=== PATIENT | female | born 1945 | race Caucasian/White ===

== ENCOUNTER 2017-11-20 19:40 | Inpatient (IN) | payer MEDICARE ==
[2017-11-20 19:59] LABS: #Lymphocytes 0.8 thou/uL (1.20-3.40); #Monocytes 0.7 thou/uL (0.11-0.59); #Neutrophils 10.1 thou/uL (1.40-6.50); %Basophils 0.3 % (0.0-1.0); %Eosinophils 0.4 % (0.0-10.0); %Neutrophils 86.3 % (42.0-75.0); Mean Corpuscular Hemoglobin 27.5 pg (27.0-31.0); Mean Corpuscular Volume 85.9 fl (81.0-99.0); Mean Platelet Volume 7.7 fL (7.4-10.4); Platelet Count 217 thou/uL (130-400); RBC Distribution Width 14.5 % (11.5-14.5); Red Blood Cell (RBC) Count 3.63 mill/uL (4.20-5.40); White Blood Cell (WBC) Count 11.7 thou/uL (4.8-10.8)
[2017-11-20 20:07] LABS: INR-International Normal Ratio 1.1; PTT 28.6 SEC (22.9-36.1); Prothrombin Time 14.4 SEC (12.0-14.7)
[2017-11-20 20:13] LABS: ALT (SGPT) 27 U/L (8-55); AST (SGOT) 53 U/L (5-34); Albumin 3.9 g/dL (3.4-4.8); Alkaline Phosphatase 52 U/L (40-150); Anion Gap 14 mmol/L (10-20); BUN (Urea Nitrogen) 52 mg/dL (9.8-20.1); Bilirubin, Total 0.5 mg/dL (0.2-1.2); Calc. Creatinine Clearance 0 mL/min (70-130); Calcium 9.6 mg/dL (7.8-10.44); Carbon Dioxide 21 mmol/L (23-31); Chloride 104 mmol/L (98-107); Estimated GFR-MDRD 17; Globulin 2.8 g/dL (2.4-3.5); Glucose 213 mg/dL (83-110); Protein, Total 6.7 g/dL (6.0-8.3); Sodium 134 mmol/L (136-145)
[2017-11-20] MEDS ORDERED: Acetaminophen 500 MG TAB ONE (20:16)
[2017-11-20 20:17] LABS: CKMB 2.9 ng/mL (0-6.6); Troponin I 0.023 ng/mL (< 0.028)
[2017-11-20 20:26] LABS: Bilirubin Negative (Negative); Blood, Urine Small (Negative); Clarity CLOUDY (Clear); Glucose, Urine (Dipstick) Negative (Negative); Leukocyte Large (Negative); Nitrite Negative (Negative); Protein, Urine (Dipstick) 100 mg/dL (Neg-Trace); Specific Gravity, Urine 1.012 (1.002-1.036); Urobilinogen 0.2 mg/dL (0.2-1.0); pH, Urine 7.5 (5.0-9.0)
[2017-11-20 20:27] LABS: Bacteria/HPF 1+ HPF (None Seen); Hyaline Casts/LPF 4-6 HYALINE CAST LPF (0-3 Hyaline); Pathc Cast-AUWi Flag 0.43 (0-2.49); Squamous Epithelial None Seen HPF (0-3)
--- NOTE | 2017-11-20 21:02 | CT ---
NONCONTRAST CT HEAD: 11/20/17 HISTORY: Altered mental status starting at noon which has since resolved. This evening, patient developed slur red speech. COMPARISON: 01/14/17 FINDINGS: There are scattered low density areas again seen within the periventricular white matter which are no nspecific but likely reflective of chronic small vessel ischemic changes. There are small low density foci again seen within the right lentiform nucleus suggesting remote lacunar infarctions. Similar fi nding is seen in the inferior aspect of the left basal ganglia. There is a small low density focus se en within the central portion of the amanda which was not present on the prior and likely represents a lacunar infarction, although the exact age is difficult to determine but is again an interval change from prior exam. There is no evidence of an acute cortical infarction, hemorrhage, mass effect or midline shift. There is mild cerebral volume loss. The ventricular system is normal in size, shape, and position. There is mucosal thickening in bilateral ethmoidal air cells and right maxillary antrum. Mastoid air cells are clear. No other interval change. IMPRESSION: 1. Lacunar infarction in the amanda, the exact age is unable to be determined based on this exam, but this does represent an interval change compared to the prior study in 2017. 2. Remote lacunar infarctions bilateral basal ganglia with mild chronic small vessel ischemic ch anges. 3. Mild cerebral volume loss. 4. Sinus disease. 5. Above findings discussed with Dr. Torres in the Emergency Department on 11/20/17 at 1959 hours . POS: [facility]
--- NOTE | 2017-11-20 21:13 | RAD ---
PORTABLE AP CHEST X-RAY: 11/20/17 HISTORY: Altered mental status which started today. COMPARISON: 01/14/17. FINDINGS: The cardiac silhouette is magnified by projection but is at the upper limits of normal in size. Pulmo nary vasculature is within normal limits. The lungs are clear. Multiple lag screws again overlie the right humeral head. There has been no significant interval change from prior exam. IMPRESSION: No acute cardiopulmonary process. POS: [facility]
[2017-11-20] MEDS ORDERED: Acetaminophen 325 MG TAB PO PRN (22:36)
[2017-11-20 22:47] VITALS: BMI 30.1
[2017-11-21] MEDS ORDERED: Ondansetron ODT 4 MG TAB PO PRN (03:37)
[2017-11-21] MEDS ORDERED: Nitroglycerin 0.4 MG TAB (25 Tab Bottle) PO PRN (03:37)
[2017-11-21] MEDS ORDERED: Ondansetron HCl/PF 4 MG/2 ML Vial IVP PRN (03:37)
[2017-11-21] MEDS ORDERED: Calcium Carbonate 500 MG ChewTAB PO PRN (03:37)
[2017-11-21] MEDS ORDERED: Senokot 8.6 MG TAB PO PRN (03:37)
[2017-11-21] MEDS ORDERED: Dextrose 5% in Water 1,000 ML IV PRN (03:43)
[2017-11-21] MEDS ORDERED: Dextrose 50% Abboject 50 ML SYRINGE SLOW IVP PRN (03:43)
[2017-11-21] MEDS ORDERED: Insulin Regular 300 UNITS/3 ML VIAL SC PRN (03:43)
--- NOTE | 2017-11-21 04:41 | HP ---
DATE OF ADMISSION: 11/20/2017 PRIMARY CARE PHYSICIAN: Nanette Gutierrez M.D. CHIEF COMPLAINT: Altered mentation. HISTORY OF PRESENT ILLNESS: The patient is a 72-year-old female with diabetes mellitus type 2, hyper tension, and chronic kidney disease, presented to the emergency room with altered mentation. History obtained from the patient. No family at the bedside. Per ER report, the patient had confusion this morning that progressively got worse. She was then abl e to answer basic questions. She just mumbled her words. The patient denies any recent change in he r medications. No weakness, numbness of her extremities reported. She denies any chest pain, shortn ess of breath, palpitations. Her symptoms have improved per patient report. PAST MEDICAL HISTORY: 1. Hypertension. 2. Chronic kidney disease stage 4. 3. History of hypertensive emergency, last year requiring hospital admission. 4. Chronic diastolic heart failure. 5. Hypothyroidism. 6. Gastroesophageal reflux disease. 7. 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 8. Vitamin B12 deficiency. PAST SURGICAL HISTORY: 1. Right shoulder surgery. 2. Colonoscopy with laser ablations of the AVMs. 3. Appendectomy. 4. Thyroidectomy. 5. Hysterectomy. 6. Cholecystectomy. ALLERGIES: The patient is allergic to PENICILLIN and FLEXERIL. CURRENT HOME MEDICATIONS: Per [employer], Lasix 20 mg daily, fish oil daily, ferrous sulfate daily, vi tamin B12 intramuscularly every 28 days, carvedilol 25 mg b.i.d., gabapentin 1200 mg daily, levothyro xine 100 mcg daily, Procardia-XL 60 mg daily, omeprazole 20 mg daily, Lantus insulin 35 units in the morning and 10 units at bedtime per patient report. SOCIAL HISTORY: The patient currently lives at home. No smoking, alcohol or drug use. Her makes her decisions. She is FULL CODE. FAMILY HISTORY: Negative for heart disease, diabetes or malignancy. REVIEW OF SYSTEMS: The following complete review of systems was negative, unless otherwise mentioned in the HPI or below: Constitutional: Weight loss or gain, ability to conduct usual activities. Sk in: Rash, itching. Eyes: Double vision, pain. ENT/Mouth: Nose bleeding, neck stiffness, pain, te nderness. Cardiovascular: Palpitations, dyspnea on exertion, orthopnea. Respiratory: Shortness of breath, wheezing, cough, hemoptysis, fever or night sweats. Gastrointestinal: Poor appetite, abdom inal pain, heartburn, nausea, vomiting, constipation, or diarrhea. Genitourinary: Urgency, frequenc y, dysuria, nocturia. Musculoskeletal: Pain, swelling. Neurologic/Psychiatric: Anxiety, depressio n. Allergy/Immunologic: Skin rash, bleeding tendency. PHYSICAL EXAMINATION: VITAL SIGNS: On ER arrival, temperature 102.2, respirations 22, pulse rate of 89, blood pressure 168 /73 with O2 saturation 93% on room air. GENERAL: A 72-year-old female in no apparent distress. HEENT: Head atraumatic, normocephalic. Sclerae are anicteric. Moist mucous membrane, no oral lesio n. NECK: Supple, no JVD appreciated. No carotid bruit. LUNGS: Clear to auscultation bilaterally, no wheezing, rales or rhonchi. HEART: S1, S2 present. Regular rate and rhythm, 2/6 systolic murmur over the mitral area. No heave s or pulsation. ABDOMEN: Soft, nontender, bowel sounds present. No significant costovertebral angle tenderness appr eciated. EXTREMITIES: 1+ edema in bilateral lower extremities. SKIN: Warm and dry. LYMPH NODES: No palpable lymph nodes in the neck. PERIPHERAL VASCULAR: Radial pulses palpable bilaterally. MUSCULOSKELETAL: No joint swelling or tenderness. SKIN: Warm and dry. NEUROLOGIC: Grossly nonfocal, moves all four extremities. Power was 5/5 in all extremities. PSYCHIATRY: Alert, awake, oriented x3. LABORATORY FINDINGS: CBC showed WBC 11.7 with hemoglobin 10.0, hematocrit 31.1, platelet of 217. PT , INR, PTT normal range. Chemistries showed sodium of 134, potassium 5, chloride 104, bicarbonate 21 , BUN 52, creatinine 2.82. Her baseline creatinine is close to 2.0. Troponins were normal. Urinaly sis showed greater than 50 wbc's with 4+ bacteria, large amount of leukocyte esterase with 4-6 hyalin e casts and 1+ bacteria. Chest x-ray by my review was negative for infiltrate. CT scan of the brain was negative for acute fi ndings. IMPRESSION: 1. Toxic metabolic encephalopathy, suspected secondary to urinary tract infection. 2. Diabetes mellitus type 2. 3. Hypertension. 4. Hyperlipidemia. 5. Hypothyroidism. 6. Acute kidney injury on chronic kidney disease stage 4. 7. Peripheral neuropathy. 8. Chronic diastolic heart failure. 9. History of gastrointestinal bleeding secondary to arteriovenous malformations in the colon. PLAN: The patient will be monitored on the telemetry unit. Empiric antibiotics will be continued. Blood and urine cultures have been sent. She may benefit from a low dose 81 mg aspirin. We will dis cuss with the family prior to initiating due to history of GI bleeding in the past. Insulin sliding scale. We will resume home medications. Continue levothyroxine. We will also resume gabapentin sin ce her mentation has improved. Due to diastolic heart failure, will be careful with fluid overloadin g. She would benefit from gentle IV hydration due to acute kidney injury on chronic kidney disease s tage 4. Plan of care was discussed with the patient, she stated understanding. The patient will require 2-3 days for stabilization.
[2017-11-21] MEDS: Sodium Chloride 0.9% 1,000 ML IV SCH (04:43)
[2017-11-21] MEDS: hydrALAZINE 20 MG/ML VIAL SLOW IVP PRN ×2 (04:52→10:54)
[2017-11-21] MEDS: Levothyroxine Sodium 100 MCG TAB PO SCH (04:52)
[2017-11-21] MEDS: Acetaminophen 325 MG TAB PO PRN ×3 (06:08→20:25)
[2017-11-21 06:14] LABS: Anion Gap 12 mmol/L (10-20); BUN (Urea Nitrogen) 52 mg/dL (9.8-20.1); Calc. Creatinine Clearance 25 mL/min (70-130); Carbon Dioxide 22 mmol/L (23-31); Chloride 107 mmol/L (98-107); Estimated GFR-MDRD 18; Glucose 272 mg/dL (83-110); Potassium 4.2 mmol/L (3.5-5.1); Sodium 137 mmol/L (136-145)
[2017-11-21 06:19] LABS: Troponin I 0.021 ng/mL (< 0.028)
[2017-11-21] MEDS ORDERED: cefTRIAXone\\ROCEPHIN 1 GM, Syringe 0.4 ML in Sterile Water 9.6 ML SLOW IVP SCH (08:00)
[2017-11-21] MEDS ORDERED: Famotidine 20 MG TAB PO SCH (09:00)
[2017-11-21] MEDS: Insulin Detemir 100 UNITS/ML 20 UNITS in Pre-Filled Syringe 1 EACH SC SCH (09:21)
[2017-11-21] MEDS: NIFEdipine XL 60 MG TAB PO SCH (09:24)
[2017-11-21] MEDS: Docusate 100 MG CAP PO SCH ×2 (09:24→20:16)
[2017-11-21] MEDS: Carvedilol 25 MG TAB PO SCH ×2 (09:24→20:16)
[2017-11-21] MEDS: Gabapentin 300 MG CAP PO SCH ×2 (09:24→20:16)
[2017-11-21] MEDS: Heparin 5,000 UNITS/ML VIAL SC SCH ×2 (09:25→20:16)
[2017-11-21] MEDS: Insulin Regular 300 UNITS/3 ML VIAL SC PRN ×3 (09:28→16:33)
[2017-11-21] MEDS: cefTRIAXone\\ROCEPHIN 1 GM in Sterile Water 10 ML SLOW IVP SCH (09:43)
--- NOTE | 2017-11-21 15:00 | PDOC.PN ---
- Subjective Encounter Start Date: 11/21/17 Encounter Start Time: 07:40 Pt seen for followup re: acute encephalopathy. Feels better. Denies chest pain , shortness of breath, fevers or chills. - Objective Resuscitation Status: Resuscitation Status FULL:Full Resuscitation MAR Reviewed: Yes Vital Signs & Weight: Vital Signs (12 hours) Temp Pulse Resp BP BP Pulse Ox 11/21/17 12:00 97.4 F L 74 14 170/72 H 95 11/21/17 10:52 74 18 177/72 H 95 11/21/17 08:25 98.7 F 84 18 11/21/17 08:00 98.7 F 84 18 189/74 H 97 11/21/17 04:52 75 183/81 H 11/21/17 04:45 98.3 F 75 18 183/81 H 93 L Weight Weight 175 lb 11.2 oz I&O: 11/20/17 11/21/17 11/22/17 06:59 06:59 06:59 Output Total 600 0 Balance -600 0 Result Diagrams: 11/20/17 19:58 11/21/17 05:43 Additional Labs: Accuchecks 11/21/17 11/21/17 10:46 05:55 POC Glucose 330 H 269 H EKG Reviewed by me: Yes (Tele: NSR) Phys Exam - Physical Examination Obese HEENT: PERRLA, moist MMs, sclera anicteric, oral pharynx no lesions Neck: no nodes, no JVD, supple, full ROM Respiratory: no wheezing, no rales, no rhonchi, clear to auscultation bilateral Cardiovascular: RRR, no rub Gastrointestinal: soft, non-tender, no distention, positive bowel sounds Musculoskeletal: pulses present Neurological: moves all 4 limbs Psychiatric: normal affect, A&O x 3 Skin: no rash Dx/Plan (1) Acute encephalopathy Code(s): G93.40 - ENCEPHALOPATHY, UNSPECIFIED Status: Acute Comment: improving (2) UTI (urinary tract infection) Status: Acute Comment: continue ceftriaxone, await urine culture (3) AV malformation of GI tract Code(s): Q27.33 - ARTERIOVENOUS MALFORMATION OF DIGESTIVE SYSTEM VESSEL Status : Chronic Comment: Discussed with pt, will not start aspirin for old CVA. Advised her to follow up with her PCP. (4) GERD (gastroesophageal reflux disease) Code(s): K21.9 - GASTRO-ESOPHAGEAL REFLUX DISEASE WITHOUT ESOPHAGITIS Status: Chronic Comment: stable (5) Hyperlipidemia Code(s): E78.5 - HYPERLIPIDEMIA, UNSPECIFIED Status: Chronic (6) Hypothyroidism Code(s): E03.9 - HYPOTHYROIDISM, UNSPECIFIED Status: Chronic Comment: stable (7) Chronic kidney disease, stage 4 (severe) Code(s): N18.4 - CHRONIC KIDNEY DISEASE, STAGE 4 (SEVERE) Status: Chronic Comment: renal function improved overnight - Plan plan discussed w/ family, continue antibiotics, out of bed/ambulate * . Review of Systems - Review of Systems Constitutional: negative: fever, chills, sweats, weakness, malaise Respiratory: negative: Cough, Shortness of Breath, Hemoptysis, SOB with Excertion, Pleuritic Pain, Wheezing Cardiovascular: negative: chest pain, palpitations, orthopnea, paroxysmal nocturnal dyspnea, edema, light headedness Gastrointestinal: negative: Nausea, Vomiting, Abdominal Pain, Diarrhea, Constipation, Melena, Hematochezia Genitourinary: negative: Dysuria, Frequency, Incontinence, Hematuria, Retention - Medications/Allergies Allergies/Adverse Reactions: Allergies Allergy/AdvReac Type Severity Reaction Status Date / Time Penicillins Allergy Severe Verified 08/09/15 03:17 cyclobenzaprine HCl AdvReac Verified 05/09/16 15:44 [From Flexeril] Medications: Current Medications Acetaminophen (Tylenol) 650 mg PO Q4H PRN PRN Reason: Headache/Fever or Pain Last Admin: 11/21/17 09:43 Dose: 650 mg Albuterol/Ipratropium (Duoneb) 3 ml NEB [id number] PRN PRN Reason: SOB &/or Wheezing Calcium Carbonate (Tums) 1,000 mg PO Q4H PRN PRN Reason: Heartburn or Indigestion Carvedilol (Coreg) 25 mg PO BID [facility] Last Admin: 11/21/17 09:24 Dose: 25 mg Dextrose/Water (Dextrose 50%) 25 gm SLOW IVP PRN PRN PRN Reason: Hypoglycemia Docusate Sodium (Colace) 100 mg PO BID [facility] Last Admin: 11/21/17 09:24 Dose: 100 mg Gabapentin (Neurontin) 600 mg PO BID [facility] Last Admin: 11/21/17 09:24 Dose: 600 mg Glucagon (Glucagon) 1 mg IM PRN PRN PRN Reason: Hypoglycemia Heparin Sodium (Porcine) (Heparin) 5,000 units SC BID [facility] Last Admin: 11/21/17 09:25 Dose: 5,000 units Hydralazine HCl (Apresoline) 10 mg SLOW IVP Q4H PRN PRN Reason: SBP Greater Than 180 Last Admin: 11/21/17 10:54 Dose: 10 mg Sodium Chloride (Normal Saline 0.9%) 1,000 mls @ 50 mls/hr IV .Q20H [facility] Stop: 11/23/17 03:46 Last Admin: 11/21/17 04:43 Dose: 1,000 mls Ceftriaxone Sodium 1 gm/ (Sterile Water) 10 mls @ 120 mls/hr SLOW IVP DAILY [facility] Last Admin: 11/21/17 09:43 Dose: 10 mls Dextrose/Water (D5w) 1,000 mls @ 0 mls/hr IV .Q0M PRN; As Directed PRN Reason: Hypoglycemia Insulin Detemir 20 units/ (Miscellaneous Medication) 0.2 mls @ 0 mls/hr SC QAM [facility] Last Admin: 11/21/17 09:21 Dose: 0.2 mls Insulin Human Regular (Humulin R) 0 units SC .MILD SLIDING SCALE PRN PRN Reason: Mild Correctional Scale Last Admin: 11/21/17 10:54 Dose: 5 unit Insulin Human Regular (Humulin R) 0 units SC .BEDTIME SLIDING SC PRN PRN Reason: Bedtime Correctional Scale Levothyroxine Sodium (Synthroid) 100 mcg PO 0600 [facility] Last Admin: 11/21/17 04:52 Dose: 100 mcg Nifedipine (Procardia Xl) 60 mg PO DAILY [facility] Last Admin: 11/21/17 09:24 Dose: 60 mg Nitroglycerin (Nitrostat) 0.4 mg PO Q5MIN PRN PRN Reason: Chest Pain Ondansetron HCl (Zofran Odt) 4 mg PO Q6H PRN PRN Reason: Nausea/Vomiting Ondansetron HCl (Zofran) 4 mg IVP Q6H PRN PRN Reason: Nausea/Vomiting Pantoprazole Sodium (Protonix) 40 mg PO DAILY [facility] Last Admin: 11/21/17 09:23 Dose: 40 mg Senna (Senokot) 2 tab PO HSPRN PRN PRN Reason: Constipation Sodium Chloride (Flush - Normal Saline) 10 ml IVF Q12HR MIKE Last Admin: 11/21/17 09:26 Dose: 10 ml Sodium Chloride (Flush - Normal Saline) 10 ml IVF PRN PRN PRN Reason: Saline Flush
[2017-11-21] MEDS ORDERED: GABAPENTIN 1200 MG PO SCH (21:00)
[2017-11-22] MEDS: Sodium Chloride 0.9% 1,000 ML IV SCH (00:29)
[2017-11-22] MEDS: Levothyroxine Sodium 100 MCG TAB PO SCH (05:17)
[2017-11-22 05:33] LABS: #Eosinphils 0.1 thou/uL (0.0-0.7); #Monocytes 0.7 thou/uL (0.11-0.59); #Neutrophils 4.1 thou/uL (1.40-6.50); %Basophils 0.1 % (0.0-1.0); %Eosinophils 2.1 % (0.0-10.0); %Monocytes 12.3 % (0.0-10.0); %Neutrophils 69.4 % (42.0-75.0); Hemoglobin 8.7 g/dL (12.0-16.0); Mean Corpuscular HGB CONC 32.6 g/dL (32.0-36.0); Mean Corpuscular Hemoglobin 28.2 pg (27.0-31.0); Mean Corpuscular Volume 86.5 fl (81.0-99.0); Mean Platelet Volume 8.5 fL (7.4-10.4); Platelet Count 196 thou/uL (130-400); RBC Distribution Width 14.6 % (11.5-14.5); Red Blood Cell (RBC) Count 3.07 mill/uL (4.20-5.40); White Blood Cell (WBC) Count 5.9 thou/uL (4.8-10.8)
[2017-11-22 05:44] LABS: ALT (SGPT) 24 U/L (8-55); AST (SGOT) 33 U/L (5-34); Albumin 3.4 g/dL (3.4-4.8); Alkaline Phosphatase 47 U/L (40-150); Anion Gap 12 mmol/L (10-20); BUN (Urea Nitrogen) 53 mg/dL (9.8-20.1); Bilirubin, Total 0.2 mg/dL (0.2-1.2); Calc. Creatinine Clearance 23 mL/min (70-130); Calcium 9.2 mg/dL (7.8-10.44); Carbon Dioxide 21 mmol/L (23-31); Chloride 109 mmol/L (98-107); Estimated GFR-MDRD 17; Globulin 2.9 g/dL (2.4-3.5); Glucose 190 mg/dL (83-110); Potassium 3.9 mmol/L (3.5-5.1); Protein, Total 6.3 g/dL (6.0-8.3); Sodium 138 mmol/L (136-145)
[2017-11-22] MEDS: cefTRIAXone\\ROCEPHIN 1 GM in Sterile Water 10 ML SLOW IVP SCH (09:41)
[2017-11-22] MEDS: Insulin Detemir 100 UNITS/ML 20 UNITS in Pre-Filled Syringe 1 EACH SC SCH (09:42)
[2017-11-22] MEDS: Carvedilol 25 MG TAB PO SCH (09:42)
[2017-11-22] MEDS: NIFEdipine XL 60 MG TAB PO SCH (09:42)
[2017-11-22] MEDS: Gabapentin 300 MG CAP PO SCH (09:42)
[2017-11-22] MEDS: Docusate 100 MG CAP PO SCH (09:43)
[2017-11-22] MEDS: Heparin 5,000 UNITS/ML VIAL SC SCH (09:44)
[2017-11-22 12:17] VITALS: TEMP 98.9
[2017-11-22] MEDS: Insulin Regular 300 UNITS/3 ML VIAL SC PRN (12:18)
[2017-11-22] MEDS: hydrALAZINE 20 MG/ML VIAL SLOW IVP PRN (12:22)
[2017-11-22 12:52] VITALS: BP 176/76
--- NOTE | 2017-11-22 15:08 | CON ---
DATE OF CONSULTATION: 11/22/2017 SERVICE: Renal Medicine. HISTORY OF PRESENT ILLNESS: Ms. Canales is a 72-year-old white female with chronic renal failure from diabetic nephropathy, hypertension, type 2 diabetes mellitus and was admitted for mental status [facility] . She was found to have a UTI and that could explain the mental status change. Her mentation is m uch improved. However, her creatinine has been fluctuating up and down. I suspect there is some pre renal component. The patient is mentating better and she is eating better and drinking as well. No other complaints. REVIEW OF SYSTEMS: No shortness of breath. Positive for mentation changes. No nausea, no vomiting, no diarrhea, no constipation, no gross hematuria, ? of dysuria, ? of urinary frequency. No fever or chills. No abdominal pain. Appetite is excellent. HOME MEDICATIONS: Included Lasix 20 mg tab daily, ferrous sulfate 325 mg once a day, B12 at every 28 days intramuscularly, carvedilol 25 mg p.o. b.i.d., gabapentin 1200 mg daily, levothyroxine 100 mcg daily, Procardia-XL 60 mg tab once a day, omeprazole 20 mg once a day, Lantus 35 units in the morning and 10 units at night. PAST MEDICAL HISTORY: 1. Chronic renal failure from diabetic nephropathy. 2. Longstanding hypertension. 3. Type 2 diabetes mellitus. 4. Hypothyroidism. 5. GERD. 6. Status post GI bleed from AV malformation. 7. Chronic diastolic heart failure. PAST SURGICAL HISTORY: 1. Status post cholecystectomy. 2. Status post hysterectomy. 3. Status post thyroidectomy. 4. Status post colonoscopy with laser ablations of the AV malformation. 5. Status post appendectomy. 6. Status post right shoulder surgery. ALLERGIES: PENICILLIN, FLEXERIL. TRAUMA: None. IMMUNIZATIONS: Up to date. HOSPITALIZATIONS: Please see past medical history. SOCIAL HISTORY: The patient is , 2 children, lives in [place]. Sedentary lifestyle. Denies a ny smoking or alcohol intake, no IV drug abuse. FAMILY HISTORY: No family history of ESRD. PHYSICAL EXAMINATION: VITAL SIGNS: Blood pressure is noted at 171/71 - this is before blood pressure medications, heart ra te 86, respiratory rate 20, temperature 98.7, pulse ox 91%. GENERAL: Awake, alert, comfortable, not in distress. SKIN: Adequate turgor. HEENT: Slightly pale conjunctivae, anicteric sclerae. NECK: No neck mass, no carotid bruits, no JVD. CHEST: No deformities. LUNGS: Clear breath sounds, no wheezing, no crackles. HEART: Normal sinus rhythm. No murmur, no gallops, no rubs. ABDOMEN: Globular, soft, nontender, no masses. EXTREMITIES: No edema, no deformities. NEUROLOGIC: Awake, oriented to 3 spheres. Moving all extremities. No tremors, no asterixis. LABORATORY DATA: Of 11/22/2017, white count 5.9, hemoglobin 8.7. Of 11/22/2017, sodium 138, potassi um 3.9, chloride 109, carbon dioxide 21, BUN 53, creatinine 2.77, glucose 190, calcium 9.2, AST is 33 . Ammonia level 47. On 11/21/2017, creatinine 2.58. On 11/20/2017, creatinine 2.82. On 09/28/2017 , creatinine 2.1. ASSESSMENT AND PLAN: 1. Chronic renal failure - secondary to presumed diabetic nephropathy, fluctuating creatinine. This reflects some degree of hemodynamically mediated renal dysfunction. I think this will equilibrate o nce the patient is home. Her p.o. intake is much improved. In addition, we will continue to hold of f her diuretics. No NANCY inhibitors or ARB. There is no indication for any dialytic intervention. 2. Mental status change - most likely from metabolic encephalopathy from her urinary tract infection . Much improved. 3. The patient can be discharged home. Please note, she was given IV ceftriaxone. We will follow h er up at the [facility].
--- NOTE | 2017-11-22 18:33 | DIS ---
DATE OF ADMISSION: 11/20/2017 DATE OF DISCHARGE: 11/22/2017 PRIMARY CARE PHYSICIAN: Nanette Gutierrez MD DISCHARGE DIAGNOSES: 1. Acute encephalopathy. 2. Urinary tract infection. CONDITION OF THE PATIENT ON THE DAY OF DISCHARGE: Stable. I assessed Ms. Canales on the day of disch arge. She denies any chest pain or shortness of breath. PHYSICAL EXAMINATION: VITAL SIGNS: Stable. HEART: S1 and S2 are heard, regular. LUNGS: Clear to auscultation bilaterally. DISCHARGE MEDICATIONS: Ciprofloxacin 500 mg orally every 18 hours, 5 more doses; Biotin 10,000 mcg d aily; Coreg 25 mg 2 times a day; vitamin D3, 1000 units every evening; vitamin B12, 1000 mcg every 28 days intramuscularly; ferrous sulfate 325 mg 2 times a day; fish oil 1200 mg 2 times a day; Lasix 20 mg daily; Neurontin 1200 mg in the evening; Lantus insulin 50 units 2 times a day; levothyroxine 100 mcg daily; magnesium 250 mg at bedtime; multivitamins 1 capsule daily; Procardia XL 60 mg daily; ome prazole 20 mg daily. CONSULTATIONS DURING THIS HOSPITALIZATION: Nephrology, Dr. Ta. HOSPITAL COURSE: Ms. Canales is a pleasant 72-year-old lady who was admitted to [facility] on 11/20/2017 for acute encephalopathy. Please refer to the admitting physician's histo ry and physical note for further information. Her encephalopathy improved during this hospitalization. She was found to have urinary tract infecti on with Escherichia coli that is resistant to ampicillin and trimethoprim/sulfamethoxazole, but sensi tive to amikacin, cefepime, cefoxitin, ceftazidime, ceftriaxone, ciprofloxacin, gentamicin, levofloxa chase, meropenem, nitrofurantoin, Zosyn, and tobramycin. She was also seen by Nephrology Service for mild worsening of her creatinine. She is reportedly arou nd her baseline. She was initially treated with ceftriaxone, subsequently stepped down to ciprofloxacin at the time of discharge. Blood cultures are pending at the time of this dictation. She is advised to follow up [facility] for blood culture results. On the day of discharge, she has white count of 5900, h emoglobin 8.7, platelet count 196,000. Sodium 138, potassium 3.9, creatinine 2.77, blood urea nitrog en 53, and a normal liver profile. Many thanks for allowing me to participate in your patient's care. Please feel free to contact me wi th any questions or concerns. DISCHARGE DESTINATION: Home. TOTAL AMOUNT OF TIME SPENT COORDINATING THIS DISCHARGE: 33 minutes.
== END 2017-11-22 13:19 | disposition home or self-care (01) | DRG 689 ==
LOC: ERS 19:40 → 2NO 21:00
PROVIDERS: ADMIT Internal Medicine; ATTEND Internal Medicine
DX: N39.0 Urinary tract infection, site not specified (principal); G92 Toxic encephalopathy; N18.4 Chronic kidney disease, stage 4 (severe); N17.9 Acute kidney failure, unspecified; I13.0 Hypertensive heart and chronic kidney disease with heart failure and stage 1 through stage 4 chronic kidney disease, or unspecified chronic kidney disease; I50.32 Chronic diastolic (congestive) heart failure; E11.22 Type 2 diabetes mellitus with diabetic chronic kidney disease; E11.42 Type 2 diabetes mellitus with diabetic polyneuropathy; E03.9 Hypothyroidism, unspecified; E78.5 Hyperlipidemia, unspecified; K21.9 Gastro-esophageal reflux disease without esophagitis; Q27.33 Arteriovenous malformation of digestive system vessel; Z86.73 Personal history of transient ischemic attack (TIA), and cerebral infarction without residual deficits; Z87.442 Personal history of urinary calculi; Z85.828 Personal history of other malignant neoplasm of skin; B96.20 Unspecified Escherichia coli [E. coli] as the cause of diseases classified elsewhere; Z79.4 Long term (current) use of insulin
CPT/HCPCS: 36415; 36416; 70450; 71045; 80048; 80053; 81003; 81015; 82553; 83605; 84484; 85025; 85610; 85730; 87040; 87077; 87086; 87186; 93005; 94760; 96361; 96374; A4216; G8978-GP-CI; G8979-GP-CI; G8980-GP-CI; J0360; J0696; J1644; J1815

== ENCOUNTER 2017-11-23 23:06 | Inpatient (IN) | payer MEDICARE ==
[2017-11-23] MEDS ORDERED: Nitroglycerin 2% Ointment 1 INCH/1 GM Packet ONE (23:34)
[2017-11-23] MEDS ORDERED: Furosemide 40 MG/4 ML VIAL ONE (23:34)
[2017-11-23 23:35] LABS: #Eosinphils 0.1 thou/uL (0.0-0.7); #Lymphocytes 0.8 thou/uL (1.20-3.40); #Monocytes 0.9 thou/uL (0.11-0.59); #Neutrophils 6.9 thou/uL (1.40-6.50); %Basophils 0.5 % (0.0-1.0); %Eosinophils 0.8 % (0.0-10.0); %Lymphocytes 9.1 % (21.0-51.0); %Monocytes 10.2 % (0.0-10.0); %Neutrophils 79.4 % (42.0-75.0); Hemoglobin 8.4 g/dL (12.0-16.0); Mean Corpuscular HGB CONC 32.9 g/dL (32.0-36.0); Mean Corpuscular Hemoglobin 28.2 pg (27.0-31.0); Mean Corpuscular Volume 85.6 fl (81.0-99.0); Mean Platelet Volume 7.8 fL (7.4-10.4); Platelet Count 249 thou/uL (130-400); RBC Distribution Width 14.7 % (11.5-14.5); Red Blood Cell (RBC) Count 2.98 mill/uL (4.20-5.40); White Blood Cell (WBC) Count 8.7 thou/uL (4.8-10.8)
[2017-11-23] MEDS ORDERED: Albuterol Sulfate 2.5 mg/3 ml Neb ONE (23:42)
[2017-11-23 23:58] LABS: ALT (SGPT) 39 U/L (8-55); AST (SGOT) 54 U/L (5-34); Albumin 3.7 g/dL (3.4-4.8); Alkaline Phosphatase 66 U/L (40-150); Anion Gap 14 mmol/L (10-20); BUN (Urea Nitrogen) 51 mg/dL (9.8-20.1); Bilirubin, Total 0.5 mg/dL (0.2-1.2); CK (CPK) 251 U/L (29-168); Calc. Creatinine Clearance 0 mL/min (70-130); Calcium 9.9 mg/dL (7.8-10.44); Carbon Dioxide 22 mmol/L (23-31); Chloride 107 mmol/L (98-107); Estimated GFR-MDRD 17; Globulin 3.3 g/dL (2.4-3.5); Glucose 251 mg/dL (83-110); Lipase 30 U/L (8-78); Potassium 4.6 mmol/L (3.5-5.1); Sodium 138 mmol/L (136-145)
[2017-11-24 00:02] LABS: CKMB 2.8 ng/mL (0-6.6); Troponin I 0.024 ng/mL (< 0.028)
--- NOTE | 2017-11-24 00:03 | RAD ---
FRONTAL VIEW CHEST: CLINICAL HISTORY: Dyspnea. COMPARISON: Chest radiograph from 11/23/2017. FINDINGS: Abnormal alveolar opacification is seen at each perihilar region. Slight blunting of each costophren ic sulcus is present. The cardiac silhouette is prominent, as is the pulmonary vasculature. The justino st is otherwise similar. IMPRESSION: Abnormal patchy alveolar perihilar opacities may relate to edema or atypical pneumonia. There are findings that indicate congestive heart failure with mild pleural fluid. Recommend continued followup. POS: [facility]
[2017-11-24 00:13] LABS: Actual Bicarbonate (HCO3a) 20.7 mEq/L (22-26); Base Excess (BEa) -3.2 mEq/L (0 (+/-) 2.5); CO2 Tension 32.3 mmHg (35.0-45.0); Carboxyhemoglobin (COHb) 1.2 gm% (0.0-3.0); Hemoglobin (Hb) 8.1 g/dL (12.0-16.0); O2 Tension (PaO2) 56.7 mmHg (80.0-100.0); pH, Arterial 7.43 (7.35-7.45)
[2017-11-24 00:14] LABS: Analyzer IN Cardio ER; Calcium, Ionized 1.3 mmol/L (1.12-1.30); Potassium - ABG Lab 4.6 mmol/L (3.70-5.30); Puncture Site LRA
[2017-11-24 00:15] LABS: ALV-art Gradient 615.925 (0-20)
[2017-11-24] MEDS ORDERED: Dextrose 50% Abboject 50 ML SYRINGE SLOW IVP PRN (00:24)
[2017-11-24] MEDS ORDERED: Dextrose 5% in Water 1,000 ML IV PRN (00:24)
[2017-11-24] MEDS ORDERED: Magnesium 2 GM/NS 0.9% 50 ML 2 GM in Premix Bag 1 BAG IVPB SCH (00:45)
[2017-11-24] MEDS ORDERED: Milk Of Magnesia 30 ML UDCUP PO PRN (01:08)
[2017-11-24] MEDS ORDERED: Ondansetron PF 4 MG/2 ML Vial IVP PRN (01:08)
[2017-11-24] MEDS ORDERED: Albuterol Sulfate 2.5 mg/3 ml Neb NEB PRN (01:11)
[2017-11-24 03:00] LABS: Bilirubin Negative (Negative); Blood, Urine Negative (Negative); Clarity CLEAR (Clear); Glucose, Urine (Dipstick) Negative (Negative); Leukocyte Trace (Negative); Nitrite Negative (Negative); Protein, Urine (Dipstick) 30 mg/dL (Neg-Trace); Specific Gravity, Urine 1.013 (1.002-1.036); Urobilinogen 0.2 mg/dL (0.2-1.0)
[2017-11-24 03:00] LABS: Troponin I 0.024 ng/mL (< 0.028)
[2017-11-24 03:02] LABS: Bacteria/HPF None Seen HPF (None Seen); Hyaline Casts/LPF 4-6 HYALINE CAST LPF (0-3 Hyaline); Pathc Cast-AUWi Flag 1.59 (0-2.49); Squamous Epithelial 0-3 HPF (0-3)
--- NOTE | 2017-11-24 04:24 | HP ---
PRIMARY CARE PHYSICIAN: Nanette Gutierrez M.D. PRESENTING COMPLAINT: Shortness of breath. HISTORY OF PRESENT ILLNESS: Ms. Parker Washington is a 72-year-old female recently admitted last week for acute encephalopathy thought to be secondary to urinary tract infection. She presents today to the hospital after her primary care physician saw her post-discharge yesterday for post-admission followup. She had a chest x-ray done, which she was told was grossly abnormal. I was told to come to the emergency room. She complains of a 3-day history of shortness of breath associated with fever, chills, and nonproductive cough. She also reports dyspnea on exertion after a few steps and fatigue. She denies chest pain, nausea, vomiting, diarrhea, palpitations, PND, orthopnea, or lower extremity edema; however, she reports intermittent lower extremity edema from [id number]. On arrival at the ER, she was found to be saturating in the 70s with oxygen saturation around 77%. She was immediately placed on BiPAP, blood cultures were taken and she was given IV vancomycin and levofloxacin. She also received IV furosemide 40 mg, magnesium sulfate, aspirin, DuoNebs, and nitro paste for elevated blood pressure. 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 PAST SURGICAL HISTORY: Right shoulder surgery, colonoscopy with laser ablation of AVMs, appendectomy, thyroidectomy, hysterectomy, cholecystectomy. FAMILY HISTORY: Reviewed, noncontributory. SOCIAL HISTORY: Does not drink alcohol, smoke cigarettes, or use illicit drugs. ALLERGIES: PENICILLIN, FLEXERIL. HOME MEDICATIONS: Biotin 10,000 mcg daily, carvedilol 25 mg b.i.d., cholecalciferol 1000 units q.p.m., ciprofloxacin 500 mg q.18 hours, cyanocobalamin 1000 mcg IM every 28 days, ferrous sulfate 325 mg b.i.d., fish oil 1200 mg b.i.d., gabapentin 1200 mg q.p.m., insulin glargine 50 units subcutaneous b.i.d., levothyroxine sodium 100 mcg p.o. daily, magnesium 250 mg at bedtime, multivitamin 1 cap daily, nifedipine 60 mg daily, omeprazole 20 mg daily, furosemide 20 mg daily. REVIEW OF SYSTEMS: Twelve-point review of systems conducted with negative unless as stated in HPI. PHYSICAL EXAMINATION: VITAL SIGNS: Blood pressure 132/67, pulse rate 75, respiratory rate 20, oxygen saturation 97% on BiPAP. GENERAL: Not in acute distress, lying comfortably in bed. HEENT: Not pale, anicteric. Normocephalic, atraumatic. PERRLA, EOMI. Moist mucous membranes. NECK: Positive JVD. Full range of movement. Supple. RESPIRATORY: Reduced breath sounds bilaterally with bibasilar crackles prominent. CARDIOVASCULAR: S1, S2 with regular rate and rhythm. No murmurs, rubs, or gallops. ABDOMEN: Soft, nontender, nondistended. Bowel sounds normoactive. No hepatosplenomegaly. NEUROLOGIC: Alert and well oriented to time, place, and person. No focal deficits. SKIN: Warm, dry, and well-perfused. No focal deficits. MUSCULOSKELETAL: No edema. PSYCHIATRIC: Normal mood and affect. LABORATORY DATA: CBC is largely unremarkable. Blood gas showed pH of 7.43 with pCO2 of 32.3, and pO2 of 56.7. Serum chemistry shows BUN of 51 and creatinine of 2.72 with lactic acid of 1.4 and initial troponin of 0.024. BNP 502. IMAGING: Chest x-ray, this showed abnormal patchy alveolar perihilar opacities which may relate to edema, apical pneumonia, findings indicates congestive heart failure with mild pleural fluid. Recommend continued followup. ASSESSMENT AND PLAN: 1. Acute respiratory failure with hypoxemia: this is likely due to acute on chronic diastolic heart failure. She will be admitted to [facility], monitored on telemetry continuously. IV furosemide 40 mg BID, monitor ins and outs. Cardiology will be consulted also the heart failure team and nutrition. We will also check a TSH and obtain an echocardiogram. In addition, she had fever and chills and pneumonia is also consideration. Therefore, we will continue with current broad-spectrum antibiotics, especially since patient was recently admitted to hospital, so healthcare-associated pneumonia is on the differential. We will continue with antibiotic and follow up blood cultures. 2. Chronic kidney disease, she is currently at her baseline. We will continue her home medications. 3. Diabetes mellitus, this is currently at goal. Last A1c was 6.5 in 07/2017. We will obtain A1c. Place on diabetic diet, fingerstick glucose before meals and at bedtime, hypoglycemia protocol, and sliding scale insulin. 4. Hypothyroidism: Stable. Patient is status post thyroidectomy. We will obtain TSH and continue levothyroxine. 5. Hypertension. Blood pressure is better controlled with nitro paste. We will gradually reintroduce her home medications. 6. Chronic diastolic heart failure: Plan as per problem #1. 7. Vitamin B12 deficiency: Continue home regimen. CODE STATUS: FULL CODE. MTDD
[2017-11-24 05:30] LABS: #Eosinphils 0.1 thou/uL (0.0-0.7); #Lymphocytes 0.8 thou/uL (1.20-3.40); #Monocytes 0.7 thou/uL (0.11-0.59); #Neutrophils 4.6 thou/uL (1.40-6.50); %Basophils 0.1 % (0.0-1.0); %Lymphocytes 12.6 % (21.0-51.0); %Monocytes 11.3 % (0.0-10.0); %Neutrophils 74.9 % (42.0-75.0); Hemoglobin 7.7 g/dL (12.0-16.0); Mean Corpuscular HGB CONC 32.6 g/dL (32.0-36.0); Mean Corpuscular Hemoglobin 27.9 pg (27.0-31.0); Mean Corpuscular Volume 85.5 fl (81.0-99.0); Mean Platelet Volume 7.9 fL (7.4-10.4); Platelet Count 258 thou/uL (130-400); RBC Distribution Width 14.4 % (11.5-14.5); Red Blood Cell (RBC) Count 2.76 mill/uL (4.20-5.40); White Blood Cell (WBC) Count 6.1 thou/uL (4.8-10.8)
[2017-11-24 05:36] VITALS: BMI 29.4
[2017-11-24 05:37] LABS: Hemoglobin A1c 6.8 % (4.0-6.0)
[2017-11-24 05:39] LABS: Anion Gap 11 mmol/L (10-20); BUN (Urea Nitrogen) 52 mg/dL (9.8-20.1); Calc. Creatinine Clearance 23 mL/min (70-130); Calcium 9.4 mg/dL (7.8-10.44); Carbon Dioxide 24 mmol/L (23-31); Chloride 106 mmol/L (98-107); Estimated GFR-MDRD 17; Glucose 261 mg/dL (83-110); Potassium 4.3 mmol/L (3.5-5.1); Sodium 137 mmol/L (136-145)
[2017-11-24] MEDS: Furosemide 40 MG/4 ML VIAL SLOW IVP SCH ×2 (06:48→15:07)
[2017-11-24] MEDS: HumaLOG 300 UNITS/3 ML VIAL SC PRN ×4 (06:51→21:45)
--- NOTE | 2017-11-24 07:01 | PDOC.EVN ---
Event Note - Event Note Event Note: Patient admitted for acute hypoxic respiratory failure. Initial critical care time 35 minutes. For more details, please refer to H and P.
[2017-11-24] MEDS: Heparin 5,000 UNITS/ML VIAL SC SCH ×3 (09:33→21:57)
[2017-11-24] MEDS: Docusate 100 MG CAP PO SCH ×2 (09:34→22:00)
--- NOTE | 2017-11-24 14:03 | CON ---
DATE OF CONSULTATION: 11/24/2017 CONSULTING PHYSICIAN: Hospitalist group. REASON FOR CONSULTATION: Acute respiratory failure related to diastolic congestive heart failure. HISTORY OF PRESENT ILLNESS: The patient is a pleasant 72-year-old female who was just released from the hospital the day before yesterday. She had been in the hospital for treatment of encephalopathy related to urinary tract infection. She went home and actually saw primary care physician the day after. She had x-ray done which was abnormal and she was sent to the emergency room. She was found to have O2 sats in the 70s. She was subsequently placed on BiPAP. She was given antibiotics and diuretics. She is improved to the point this morning to wear the BiPAP has been removed. PAST MEDICAL HISTORY: 1. Hypertension. 2. Chronic kidney disease stage 4. 3. Chronic diastolic heart failure, although the patient denies this diagnosis. 4. Gastroesophageal reflux. 5. Hypothyroidism. 6. GI bleeding due to AVMs. 7. Diabetes. PAST SURGICAL HISTORY: 1. Right shoulder surgeries for colonoscopy. 2. Cholecystectomy. 3. Hysterectomy. 4. Appendectomy. 5. Thyroidectomy. FAMILY MEDICAL HISTORY: Unremarkable. SOCIAL HISTORY: Does not smoke, does not consume alcohol, does not use illicit drugs. ALLERGIES: PENICILLIN, FLEXERIL. MEDICATIONS PRIOR TO ADMISSION: Biotin, carvedilol, cholecalciferol, Cipro, cyanocobalamin, iron sulfate, gabapentin, insulin, levothyroxine, magnesium, nifedipine, omeprazole, and furosemide. REVIEW OF SYSTEMS: Twelve point review of systems otherwise negative. PHYSICAL EXAMINATION: VITAL SIGNS: Temperature 99.8, pulse 86, blood pressure 119/52, O2 sat 94% on 3 liters. GENERAL: She is awake and alert and in no distress. HEENT: Pupils react. Sclerae icteric. Oropharynx clear. NECK: Without adenopathy, JVD, or bruits. LUNGS: She has inspiratory crackles at the bases bilaterally. CARDIAC: S1 and S2 regular with 2/6 systolic murmur. ABDOMEN: Soft, nontender, nondistended. EXTREMITIES: No clubbing, cyanosis, edema. X-RAY FINDINGS: Chest x-ray shows perihilar edema. She has lower lobe infiltrates. She has bilateral small effusions. LABORATORY DATA: White blood cell count 6.1, hematocrit 23.6, platelet count 258, pH 7.43, pCO2 of 32, pO2 56. Sodium 137, potassium 4.3, chloride 106, CO2 24, BUN 53, creatinine 2.7, glucose 256. BNP level was 502. Most recent urine culture demonstrated E. coli. It was sensitive to everything except for Bactrim , ampicillin, and Unasyn. ASSESSMENT: 1. Acute respiratory failure related to diastolic cardiac dysfunction. I doubt that this is pneumonitis. 2. Recent urinary tract infection. 3. Diabetes mellitus. 4. Medical problems listed above. RECOMMENDATIONS: 1. I would recommend continued diuresis. 2. IV antibiotic therapy, although I would consider stopping the vancomycin. 3. Should be safe to transfer to the floor this afternoon if she is able to stay off BiPAP. 4. The patient has seen both Dr. Fuentes and Dr. Thornton in the past, one those two will take over her case tomorrow. 70 min. time was spent on this patient. Of that time, >50% was spent with the patient and/or on the patients hospital unit [facility]
[2017-11-24] MEDS: Carvedilol 3.125 MG TAB PO SCH (16:56)
--- NOTE | 2017-11-24 18:17 | CON ---
DATE OF CONSULTATION: 11/24/2017 REASON FOR CONSULTATION: Diastolic congestive heart failure. HISTORY OF PRESENT ILLNESS: Ms. Canales is a delightful 72-year-old woman with history of stage IV re nal failure and now diastolic heart failure. Ms. Canales came to the emergency room recently, was evaluated and is able to be released home, but th en started having more trouble breathing and x-ray was done as an outpatient. Dr. Gutierrez looked at that and recommended the patient come to the emergency room. Here, she was found to be in congestive heart failure. She has received diuretics and is feeling better now. She is currently breathing much better. She also was found to have urinary tract infection. At one time, she had oxygen saturation in the 70 s. She did require BiPAP. PAST MEDICAL HISTORY: 1. Hypertension. 2. Stage IV renal failure. 3. History of esophageal reflux. 4. History of GI bleeding due to AVM. PAST SURGICAL HISTORY: 1. Colonoscopy. 2. Cholecystectomy. 3. Hysterectomy. 4. Appendectomy. 5. Thyroidectomy. FAMILY HISTORY: Negative for heart disease at a young age. SOCIAL HISTORY: No smoking or alcohol. ALLERGIES: PENICILLIN and FLEXERIL. MEDICATIONS PRIOR TO ADMISSION: 1. Biotin. 2. Carvedilol. 3. Cipro. 4. Iron. 5. Levothyroxine. 6. Magnesium. 7. Nifedipine. 8. Omeprazole. 9. Furosemide. REVIEW OF SYSTEMS: Constitutional: No significant weight gain or loss. Vision: No changes. Heari ng: No changes. Pulmonary: Positive for shortness of breath. Cardiac: No chest pain. Gastrointe stinal: No nausea, vomiting, diarrhea. Skin: No rashes. Neurologic: No unilateral weakness or nu mbness. Psychiatric: No unusual depression or anxiety. PHYSICAL EXAMINATION: GENERAL: A pleasant 72-year-old woman resting comfortably in no distress. VITAL SIGNS: Blood pressure 145/53, pulse 80s, regular. HEENT: Eyes, sclerae nonicteric. Mouth, mucous membranes moist. NECK: Supple, no lymphadenopathy. LUNGS: Clear, no wheezing, rales or rhonchi. CARDIOVASCULAR: Normal S1, normal S2. There is no murmur, rub or gallop. ABDOMEN: Soft, nontender. EXTREMITIES: No clubbing or cyanosis. There is only very minimal edema. PERTINENT LABORATORY AND X-RAY FINDINGS: Her creatinine is 2.7 with an estimated GFR of 17, stage IV renal failure. Blood sugars 303. EKG, sinus rhythm with ST depression in V4, V5 and V6. Troponin level 0.020. Echocardiogram, ejection fraction 55%-60%, mild left ventricular hypertrophy, diastolic dysfunction. Pulmonary artery pressure elevated 50 mmHg systolic. ASSESSMENT: 1. Congestive heart failure, diastolic, acute, probably on chronic. 2. Stage IV renal failure. 3. History of anemia, likely iron deficiency, most recent hemoglobin 7.7. PLAN: 1. Agree with diuretics. 2. We will reinstitute carvedilol. 3. Check iron levels. May need intravenous iron. 4. Will need to have a discussion about whether cardiac catheterization should be done. Certainly c atheterization with intervention would have a substantial risk of bleeding to end-stage renal disease resulting in dialysis. Will need to discuss with the patient whether she wishes to pursue that, queenie l be made during the first stage is considered. Stress testing once she is more hemodynamically impr maurisio.
[2017-11-24] MEDS ORDERED: hydrALAZINE 20 MG/ML VIAL SLOW IVP PRN (20:44)
[2017-11-24] MEDS: Acetaminophen 325 MG TAB PO PRN (23:10)
[2017-11-25] MEDS ORDERED: Vancomycin HCl 500 MG in Sodium Chloride 0.9% 250 ML 250 ML IVPB SCH (01:00)
[2017-11-25] MEDS ORDERED: Vancomycin HCl 500 MG in Sodium Chloride 0.9% 100 ML IVPB SCH (02:15)
[2017-11-25] MEDS: Furosemide 40 MG/4 ML VIAL SLOW IVP SCH ×2 (05:32→14:41)
[2017-11-25] MEDS: HumaLOG 300 UNITS/3 ML VIAL SC PRN ×3 (05:34→15:42)
[2017-11-25 06:20] LABS: ALT (SGPT) 27 U/L (8-55); AST (SGOT) 26 U/L (5-34); Albumin 3.4 g/dL (3.4-4.8); Alkaline Phosphatase 55 U/L (40-150); Anion Gap 14 mmol/L (10-20); BUN (Urea Nitrogen) 52 mg/dL (9.8-20.1); Bilirubin, Total 0.4 mg/dL (0.2-1.2); Calc. Creatinine Clearance 24 mL/min (70-130); Calcium 9.4 mg/dL (7.8-10.44); Carbon Dioxide 24 mmol/L (23-31); Chloride 105 mmol/L (98-107); Estimated GFR-MDRD 18; Glucose 143 mg/dL (83-110); Iron 13 ug/dL (50-170); Potassium 3.8 mmol/L (3.5-5.1); Protein, Total 6.4 g/dL (6.0-8.3); Sodium 139 mmol/L (136-145)
[2017-11-25 06:21] LABS: Iron 14 ug/dL (50-170); Iron Binding Capacity, Total 283 mcg/dL (265-497)
[2017-11-25 06:24] LABS: Band 3 % (5-11); Eosinophils 8 % (0-10); Hemoglobin 8.1 g/dL (12.0-16.0); Lymphocytes 21 % (21-51); MDiff Complete? YES; Mean Corpuscular HGB CONC 32.7 g/dL (32.0-36.0); Mean Corpuscular Hemoglobin 27.8 pg (27.0-31.0); Mean Corpuscular Volume 84.8 fl (81.0-99.0); Mean Platelet Volume 7.6 fL (7.4-10.4); Metamyelocyte 1 % (0-0); Monocytes 14 % (0-10); Neutrophil 53 % (42-75); Nucleated RBC 1 % (0); PLT Morphology Comment Appears Adequate; Platelet Count 287 thou/uL (130-400); RBC Distribution Width 14.4 % (11.5-14.5); White Blood Cell (WBC) Count 4.7 thou/uL (4.8-10.8)
[2017-11-25] MEDS: Carvedilol 3.125 MG TAB PO SCH (08:07)
[2017-11-25] MEDS: Aspirin 81 mg Enteric Coated Tablet PO SCH ×2 (08:08→14:40)
[2017-11-25] MEDS: Docusate 100 MG CAP PO SCH ×2 (08:08→20:55)
[2017-11-25] MEDS: Heparin 5,000 UNITS/ML VIAL SC SCH ×3 (08:08→20:54)
--- NOTE | 2017-11-25 08:37 | PRG ---
DATE OF SERVICE: 11/25/2017 The patient is better this morning. She is less short of breath, less cough. According to her husba nd she is less encephalopathic. PHYSICAL EXAMINATION: VITAL SIGNS: Blood pressure is 184/68, pulse is 120, sats 100% on supplemental oxygen 2 liters. She is afebrile. I's and O's are 1180 in, 2550 out. CHEST: Chest revealed extensive bilateral crackles 1/3 way up the chest. CARDIAC: Normal S1, S2, no gallops. ABDOMEN: Soft. EXTREMITIES: No edema. NEUROLOGIC: She is awake, responsive. LABORATORY: Creatinine is 2.62, GFR is 18, glucose was 78. White count 4000, H&H 24. Last chest x-ray showed bilateral pulmonary infiltrates and pleural effusion. IMPRESSION: 1. Congestive heart failure, diastolic dysfunction. 2. Sleep apnea. 3. Obesity. 4. Chronic renal failure. PLAN: White count is normal. Cultures are negative. Suggest transferring to a monitored bed. Continue diuresis. Continue PT. Antibiotics for UTI. I will follow.
--- NOTE | 2017-11-25 09:43 | RAD ---
SINGLE VIEW OF THE CHEST: Comparison: 11-23-17 History: CHF. FINDINGS: Single view of the chest shows a normal sized cardiomediastinal silhouette. There is no evidence of c onsolidation, mass, or pleural effusions. Bone anchors are seen in the right humerus. IMPRESSION: No evidence of acute cardiopulmonary disease. POS: [facility]
--- NOTE | 2017-11-25 14:00 | PDOC.PN ---
- Subjective Encounter Start Date: 11/25/17 Encounter Start Time: 12:00 -: old records requested/rev Pt seen and examined, chart reviewed in its entirety, this is my first visit with this patient. Off BiPAP, weaned to NC 2L. Dr Fuentes saw earlier, wrote orders to transfer to tele. Echo results revieweed, no CP, no N/V, no F/C, some cough but nonproductive 10 point ROS performed and neg for all systems except as per HPI - Objective MAR Reviewed: Yes Vital Signs & Weight: Vital Signs (12 hours) Temp Pulse Resp Pulse Ox 11/25/17 13:40 99 11/25/17 13:36 70 15 99 11/25/17 11:00 97.7 F 11/25/17 08:00 97.7 F 72 24 H 100 11/25/17 07:00 98.5 F 11/25/17 03:00 98.8 F Weight Admit Weight 172 lb 6.424 oz Weight 169 lb 12.095 oz Most Recent Monitor Data Heart Rate from ECG 72 NIBP 169/60 NIBP BP-Mean 82 Respiration from ECG 23 SpO2 100 I&O: 11/24/17 11/25/17 11/26/17 06:59 06:59 06:59 Intake Total 80 1180 480 Output Total 0 2550 550 Balance 80 -1370 -70 Result Diagrams: 11/25/17 05:34 11/25/17 05:34 Additional Labs: Accuchecks 11/24/17 11/24/17 21:55 16:57 POC Glucose 278 H 276 H Radiology Reviewed by me: Yes EKG Reviewed by me: Yes Phys Exam - Physical Examination Constitutional: NAD HEENT: PERRLA, moist MMs, sclera anicteric, oral pharynx no lesions Neck: no nodes, no JVD, supple, full ROM Respiratory: no wheezing, no rales, no rhonchi, clear to auscultation bilateral Cardiovascular: RRR, no rub HSM 3/6 LLSB Gastrointestinal: soft, non-tender, no distention, positive bowel sounds Musculoskeletal: no edema, pulses present Neurological: non-focal, normal sensation, moves all 4 limbs Lymphatic: no nodes Psychiatric: normal affect, A&O x 3 Skin: no rash, normal turgor, cap refill <2 seconds Dx/Plan (1) Acute on chronic kidney failure Code(s): N17.9 - ACUTE KIDNEY FAILURE, UNSPECIFIED; N18.9 - CHRONIC KIDNEY DISEASE, UNSPECIFIED Status: Acute Qualifiers: Acute renal failure type: unspecified Chronic kidney disease stage: stage 4 (severe) Qualified Code(s): N17.9 - Acute kidney failure, unspecified; N18.4 - Chronic kidney disease, stage 4 (severe); N18.4 - Chronic kidney disease , stage 4 (severe); N18.4 - Chronic kidney disease, stage 4 (severe); N18.4 - Chronic kidney disease, stage 4 (severe) (2) Hypertension Code(s): I10 - ESSENTIAL (PRIMARY) HYPERTENSION Status: Acute Qualifiers: Hypertension type: essential hypertension Qualified Code(s): I10 - Essential (primary) hypertension Comment: controlled at present (3) Chronic kidney disease, stage 4 (severe) Code(s): N18.4 - CHRONIC KIDNEY DISEASE, STAGE 4 (SEVERE) Status: Chronic Comment: renal function improved overnight (4) Diabetes mellitus type 2 in nonobese Code(s): E11.9 - TYPE 2 DIABETES MELLITUS WITHOUT COMPLICATIONS Status: Chronic (5) Diastolic congestive heart failure Code(s): I50.30 - UNSPECIFIED DIASTOLIC (CONGESTIVE) HEART FAILURE Status: Chronic Qualifiers: Heart failure chronicity: acute on chronic Qualified Code(s): I50.33 - Acute on chronic diastolic (congestive) heart failure Comment: resolved, weane dof biPAP, responding well to diuesis. transfer to [facility] (6) GERD (gastroesophageal reflux disease) Code(s): K21.9 - GASTRO-ESOPHAGEAL REFLUX DISEASE WITHOUT ESOPHAGITIS Status: Chronic Qualifiers: Esophagitis presence: without esophagitis Qualified Code(s): K21.9 - Gastro -esophageal reflux disease without esophagitis Comment: stable (7) Hyperlipidemia Code(s): E78.5 - HYPERLIPIDEMIA, UNSPECIFIED Status: Chronic Qualifiers: Hyperlipidemia type: unspecified Qualified Code(s): E78.5 - Hyperlipidemia , unspecified (8) Hypothyroidism Code(s): E03.9 - HYPOTHYROIDISM, UNSPECIFIED Status: Chronic Qualifiers: Hypothyroidism type: acquired Qualified Code(s): E03.9 - Hypothyroidism, unspecified Comment: stable - Plan cont current plan of care, PT/OT, respiratory therapy, incentive spirometry, out of bed/ambulate * .
[2017-11-25] MEDS: Acetaminophen 325 MG TAB PO PRN (14:42)
[2017-11-25] MEDS ORDERED: Carvedilol 25 MG TAB PO SCH ×5 (17:00→21:00)
[2017-11-25] MEDS: Gabapentin 400 MG CAP PO SCH (20:54)
[2017-11-25] MEDS: Insulin Detemir 100 UNITS/ML 50 UNITS in Pre-Filled Syringe SC SCH (20:56)
[2017-11-25] MEDS ORDERED: INSULIN GLARGINE 50 UNIT SC SCH (21:00)
[2017-11-26] MEDS ORDERED: Vancomycin HCl 500 MG in Sodium Chloride 0.9% 100 ML IVPB SCH (01:00)
[2017-11-26] MEDS: Levothyroxine Sodium 100 MCG TAB PO SCH (05:16)
[2017-11-26] MEDS: Furosemide 40 MG/4 ML VIAL SLOW IVP SCH ×2 (05:16→14:33)
[2017-11-26] MEDS: Heparin 5,000 UNITS/ML VIAL SC SCH ×3 (08:45→21:02)
[2017-11-26] MEDS: Aspirin 81 mg Enteric Coated Tablet PO SCH (08:46)
[2017-11-26] MEDS: Carvedilol 25 MG TAB PO SCH ×2 (08:46→17:55)
[2017-11-26] MEDS: NIFEdipine XL 60 MG TAB PO SCH (08:47)
[2017-11-26] MEDS: predniSONE 20 MG TAB PO SCH (08:47)
[2017-11-26] MEDS: Docusate 100 MG CAP PO SCH ×2 (08:47→21:01)
[2017-11-26] MEDS: Insulin Detemir 100 UNITS/ML 50 UNITS in Pre-Filled Syringe SC SCH ×2 (09:36→21:02)
[2017-11-26] MEDS ORDERED: Iron Dextran 500 MG, Admixture Fee 1 EACH in Sodium Chloride 0.9% 250 ML IVPB SCH (10:00)
[2017-11-26 10:22] LABS: Hemoglobin 8.1 g/dL (12.0-16.0); Mean Corpuscular HGB CONC 31.1 g/dL (32.0-36.0); Mean Corpuscular Hemoglobin 27.5 pg (27.0-31.0); Mean Corpuscular Volume 88.2 fl (81.0-99.0); Mean Platelet Volume 7.7 fL (7.4-10.4); Platelet Count 353 thou/uL (130-400); RBC Distribution Width 14.6 % (11.5-14.5); Red Blood Cell (RBC) Count 2.95 mill/uL (4.20-5.40); White Blood Cell (WBC) Count 3.7 thou/uL (4.8-10.8)
[2017-11-26 10:46] LABS: Anion Gap 13 mmol/L (10-20); BUN (Urea Nitrogen) 59 mg/dL (9.8-20.1); Calc. Creatinine Clearance 26 mL/min (70-130); Calcium 9.2 mg/dL (7.8-10.44); Carbon Dioxide 28 mmol/L (23-31); Chloride 100 mmol/L (98-107); Estimated GFR-MDRD 19; Glucose 199 mg/dL (83-110); Magnesium 1.8 mg/dL (1.6-2.6); Potassium 4.1 mmol/L (3.5-5.1); Sodium 137 mmol/L (136-145)
[2017-11-26 10:51] LABS: Band 3 % (5-11); Eosinophils 3 % (0-10); Hypochromia SLIGHT = 6-15 cells (100X) (0-5/hpf); Lymphocytes 40 % (21-51); MDiff Complete? YES; Metamyelocyte 2 % (0-0); Monocytes 13 % (0-10); Neutrophil 39 % (42-75); PLT Morphology Comment Appears Adequate; Polychromasia SLIGHT = 2-3 cells (100X) (0-2/hpf)
--- NOTE | 2017-11-26 11:14 | PRG ---
DATE OF SERVICE: 11/26/2017 Ms. Canales is having no chest pain, but she has been very inactive she is staying in bed most of the time. She is still on oxygen nasal cannula. PHYSICAL EXAMINATION: VITAL SIGNS: Blood pressure is variable 142/65 to 173/75, pulse is in 70-80. LUNGS: Clear. CARDIAC: Normal S1, normal S2. ABDOMEN: Soft, nontender. EXTREMITIES: No edema. PERTINENT LABORATORY: Her most recent creatinine is 2.6. Most recent estimated GFR was 18. Potassi um was 3.8. Iron level is extremely low at 14. Ferritin 94. ASSESSMENT: 1. Anemia likely a mix of chronic gastrointestinal blood loss and iron deficiency anemia and anemia of chronic disease with renal failure. 2. Hypertension, labile. 3. Diastolic heart failure, probably mostly related to hypertension with left ventricular hypertroph y, although she could have underlying coronary artery disease as well. 4. Obesity. She is listed as 170 pounds, but clearly that is not the correct weight. PLAN: 1. Continue diuretics. 2. Intravenous iron. 3. Add hydralazine. 4. Carvedilol. 5. Cannot use NANCY inhibitors or ARB due to renal failure. 6. She has received intravenous iron as an outpatient before, that will probably need to be done aga in. 7. Outpatient PET scanning would be the best stress test in view of her BMI which is extremely high.
--- NOTE | 2017-11-26 11:20 | PRG ---
DATE OF SERVICE: 11/26/2017 SUBJECTIVE: This morning, she is better, still coughing, but less short of breath. OBJECTIVE: VITAL SIGNS: Sats are 96% on 2 liters, respirations 16, pulse is 79, temperature 96, blood pressure is 170/75. CHEST: Still has bilateral crackles. CARDIAC: Normal S1, S2, no gallops. ABDOMEN: Soft, no masses. IMPRESSION: Respiratory failure, congestive heart failure, chronic obstructive pulmonary disease, po ssibly pneumonia, sleep apnea. PLAN: Continue aggressive PT and supportive care. We will follow.
[2017-11-26] MEDS: hydrALAZINE 25 MG TAB PO SCH ×2 (14:34→21:01)
--- NOTE | 2017-11-26 15:13 | PDOC.PN ---
- Subjective Encounter Start Date: 11/26/17 Encounter Start Time: 10:00 Pt seen, transferred to tele overnight feels about the same, no acute events. no f/c, no N/V, no D/C, no CP, some dyspnea, no sputum production 10 point ROS performed and neg for all systems except as above - Objective MAR Reviewed: Yes Vital Signs & Weight: Vital Signs (12 hours) Temp Pulse Pulse Pulse Resp BP BP 11/26/17 14:34 72 146/85 H 11/26/17 13:46 74 85 161/70 H 11/26/17 11:23 98.2 F 69 16 11/26/17 07:12 96.9 F L 79 16 11/26/17 04:00 97.4 F L 57 L 16 BP BP BP Pulse Ox Pulse Ox Pulse Ox 11/26/17 14:34 11/26/17 13:46 154/67 H 98 98 11/26/17 11:23 163/72 H 94 L 11/26/17 07:12 173/75 H 96 11/26/17 04:00 142/65 H 99 Weight Admit Weight 172 lb 6.424 oz Weight 176 lb Most Recent Monitor Data Heart Rate from ECG 71 NIBP 182/66 NIBP BP-Mean 166 Respiration from ECG 22 SpO2 100 I&O: 11/25/17 11/26/17 11/27/17 06:59 06:59 06:59 Intake Total 1180 1440 Output Total 2550 1425 Balance -1370 15 Result Diagrams: 11/26/17 09:44 11/26/17 09:44 Additional Labs: Accuchecks 11/26/17 11/26/17 11/26/17 11:08 09:36 05:52 POC Glucose 168 H 262 H 79 11/26/17 11/25/17 11/25/17 00:16 20:45 15:40 POC Glucose 240 H 330 H 232 H 11/25/17 11/25/17 11:36 05:35 POC Glucose 190 H 165 H Radiology Reviewed by me: Yes EKG Reviewed by me: Yes Phys Exam - Physical Examination Constitutional: NAD HEENT: PERRLA, moist MMs, sclera anicteric, oral pharynx no lesions Neck: no nodes, no JVD, supple, full ROM Respiratory: no wheezing coarse rattling bilaterally Cardiovascular: RRR, no significant murmur, no rub Gastrointestinal: soft, non-tender, no distention, positive bowel sounds Musculoskeletal: pulses present, edema present Neurological: non-focal, normal sensation, moves all 4 limbs Lymphatic: no nodes Psychiatric: normal affect, A&O x 3 Skin: no rash, normal turgor, cap refill <2 seconds Dx/Plan (1) Acute on chronic kidney failure Code(s): N17.9 - ACUTE KIDNEY FAILURE, UNSPECIFIED; N18.9 - CHRONIC KIDNEY DISEASE, UNSPECIFIED Status: Resolved Qualifiers: Acute renal failure type: unspecified Chronic kidney disease stage: stage 4 (severe) Qualified Code(s): N17.9 - Acute kidney failure, unspecified; N18.4 - Chronic kidney disease, stage 4 (severe); N18.4 - Chronic kidney disease , stage 4 (severe); N18.4 - Chronic kidney disease, stage 4 (severe); N18.4 - Chronic kidney disease, stage 4 (severe) Comment: due to CKD and acute on chronic diastolic CHF. Better with diuresis, at baseline (2) Hypertension Code(s): I10 - ESSENTIAL (PRIMARY) HYPERTENSION Status: Acute Qualifiers: Hypertension type: essential hypertension Qualified Code(s): I10 - Essential (primary) hypertension Comment: controlled at present (3) Chronic kidney disease, stage 4 (severe) Code(s): N18.4 - CHRONIC KIDNEY DISEASE, STAGE 4 (SEVERE) Status: Chronic Comment: renal function improved overnight (4) Diabetes mellitus type 2 in nonobese Code(s): E11.9 - TYPE 2 DIABETES MELLITUS WITHOUT COMPLICATIONS Status: Chronic (5) Diastolic congestive heart failure Code(s): I50.30 - UNSPECIFIED DIASTOLIC (CONGESTIVE) HEART FAILURE Status: Chronic Qualifiers: Heart failure chronicity: acute on chronic Qualified Code(s): I50.33 - Acute on chronic diastolic (congestive) heart failure Comment: resolved, weane dof biPAP, responding well to diuesis. transfer to [facility] (6) GERD (gastroesophageal reflux disease) Code(s): K21.9 - GASTRO-ESOPHAGEAL REFLUX DISEASE WITHOUT ESOPHAGITIS Status: Chronic Qualifiers: Esophagitis presence: without esophagitis Qualified Code(s): K21.9 - Gastro -esophageal reflux disease without esophagitis Comment: stable (7) Hyperlipidemia Code(s): E78.5 - HYPERLIPIDEMIA, UNSPECIFIED Status: Chronic Qualifiers: Hyperlipidemia type: unspecified Qualified Code(s): E78.5 - Hyperlipidemia , unspecified (8) Hypothyroidism Code(s): E03.9 - HYPOTHYROIDISM, UNSPECIFIED Status: Chronic Qualifiers: Hypothyroidism type: acquired Qualified Code(s): E03.9 - Hypothyroidism, unspecified Comment: stable - Plan * .
[2017-11-26] MEDS ORDERED: Benzonatate 100 MG CAP PO PRN (16:03)
[2017-11-26] MEDS: HumaLOG 300 UNITS/3 ML VIAL SC PRN (17:55)
[2017-11-26] MEDS: Gabapentin 400 MG CAP PO SCH (21:01)
[2017-11-27] MEDS: Levothyroxine Sodium 100 MCG TAB PO SCH (05:18)
[2017-11-27] MEDS: Furosemide 40 MG/4 ML VIAL SLOW IVP SCH (05:19)
[2017-11-27 05:34] LABS: #Eosinphils 0.1 thou/uL (0.0-0.7); #Lymphocytes 1.4 thou/uL (1.20-3.40); #Monocytes 0.8 thou/uL (0.11-0.59); #Neutrophils 3.7 thou/uL (1.40-6.50); %Basophils 0.4 % (0.0-1.0); %Eosinophils 1.6 % (0.0-10.0); %Lymphocytes 23.3 % (21.0-51.0); %Monocytes 12.4 % (0.0-10.0); %Neutrophils 62.3 % (42.0-75.0); Hemoglobin 7.9 g/dL (12.0-16.0); Mean Corpuscular HGB CONC 32.6 g/dL (32.0-36.0); Mean Corpuscular Volume 85.8 fl (81.0-99.0); Mean Platelet Volume 7.6 fL (7.4-10.4); Platelet Count 392 thou/uL (130-400); RBC Distribution Width 14.6 % (11.5-14.5); Red Blood Cell (RBC) Count 2.83 mill/uL (4.20-5.40)
[2017-11-27 06:00] LABS: Anion Gap 14 mmol/L (10-20); BUN (Urea Nitrogen) 63 mg/dL (9.8-20.1); Calc. Creatinine Clearance 26 mL/min (70-130); Calcium 9.3 mg/dL (7.8-10.44); Carbon Dioxide 27 mmol/L (23-31); Chloride 101 mmol/L (98-107); Estimated GFR-MDRD 19; Glucose 172 mg/dL (83-110); Magnesium 2.1 mg/dL (1.6-2.6); Potassium 3.7 mmol/L (3.5-5.1); Sodium 138 mmol/L (136-145)
[2017-11-27 07:52] VITALS: TEMP 97.9
[2017-11-27] MEDS ORDERED: Iron Dextran 500 MG in Sodium Chloride 0.9% 250 ML 250 ML IVPB SCH (08:00)
[2017-11-27] MEDS: predniSONE 20 MG TAB PO SCH (08:05)
[2017-11-27] MEDS: Carvedilol 25 MG TAB PO SCH (08:05)
--- NOTE | 2017-11-27 08:15 | PRG ---
DATE OF SERVICE: 11/27/2017 Ms. Canales really looks much better today, no chest pain or pressure. PHYSICAL EXAMINATION: VITAL SIGNS: Blood pressure 142/63, pulse 70, it is regular. LUNGS: Clear. CARDIAC: Normal S1, normal S2. ABDOMEN: Soft, nontender. EXTREMITIES: No edema. PERTINENT LABORATORY: Creatinine stable at 2.47. Estimated GFR is 19. Potassium is 3.7. ASSESSMENT: 1. Congestive heart failure, diastolic, acute on chronic, improved. 2. Hypertension, longstanding, difficult to control. 3. Anemia, probably mixed iron deficiency as well as anemia of chronic disease from renal failure. PLAN: 1. She is on Carvedilol 25 mg twice a day. 2. She is on a Nifedipine (Procardia-XL) 60 mg a day. 3. Furosemide changed to oral 40 mg twice a day. 4. Hydralazine 50 mg 3 times a day. 5. She needs an outpatient stress test. She had clearly has diastolic heart failure. This may all be related to hypertension. At some point would like to do stress test to see if there is any evidence of ischemic heart disease. I would not proceed to catheterization unless absolutely necessary as there would be significant risk of renal failure, even dialysis if intervention was necessary. Catheterization could be done with a very small amount of contrast , but intervention or surgical therapy would exposure her to significant risk of end-stage renal disease. The patient will hopefully be released home soon. SHE
[2017-11-27] MEDS ORDERED: hydrALAZINE 25 MG TAB PO SCH (09:00)
[2017-11-27] MEDS ORDERED: Furosemide 40 MG TAB PO SCH (09:00)
[2017-11-27] MEDS ORDERED: Heparin 5,000 UNITS/ML VIAL SC SCH (09:00)
[2017-11-27] MEDS ORDERED: Potassium Chloride 20 MEQ TAB PO SCH (09:00)
--- NOTE | 2017-11-27 09:15 | PRG ---
DATE OF SERVICE: 11/27/2017 This morning she is doing well. PHYSICAL EXAMINATION: VITAL SIGNS: Sats 90% on room air, temperature 97, blood pressure is 140/63. CHEST: Chest revealed no wheezing or crackles. CARDIAC: Normal S1, S2. ABDOMEN: Soft, no masses. LABORATORY DATA: White count 6000, H&H is 7 and 24, platelet count is normal. Electrolytes are norm al. Creatinine 2.60. IMPRESSION: 1. Chronic obstructive pulmonary disease. 2. Obstructive sleep apnea, stable. 3. Chronic renal failure. 4. Congestive heart failure. PLAN: From a pulmonary standpoint of view, she can be discharged home anytime. Await input from Car diology. Pulmonary to see her in the office as needed, taper steroids over a course of several days.
--- NOTE | 2017-11-27 09:16 | RAD ---
RADIOGRAPH CHEST 2 VIEWS: HISTORY: 72-year-old female for follow up of abnormal chest radiograph. FINDINGS: There is no air space density, pulmonary edema, pleural effusion, pneumothorax, or cardiomegaly. On t he one view study of 11-25-17, there was a transversely oriented plate-like density over the left mid/ lower lung zone, consistent with subsegmental atelectasis. That has improved now. IMPRESSION: No acute cardiopulmonary findings. andrey Chandra POS: LISA
[2017-11-27] MEDS: Aspirin 81 mg Enteric Coated Tablet PO SCH (09:30)
[2017-11-27] MEDS: NIFEdipine XL 60 MG TAB PO SCH (09:30)
[2017-11-27] MEDS: Insulin Detemir 100 UNITS/ML 50 UNITS in Pre-Filled Syringe SC SCH (09:31)
[2017-11-27] MEDS: Docusate 100 MG CAP PO SCH (09:31)
[2017-11-27] MEDS ORDERED: Epoetin (ESRD) 10,000 UNITS/ML VIAL IVP SCH (10:15)
[2017-11-27] MEDS ORDERED: Epoetin (ESRD) 20,000 UNITS/ML IVP SCH (10:30)
[2017-11-27 11:15] VITALS: BP 144/68
--- NOTE | 2017-11-27 14:12 | DIS ---
DATE OF ADMISSION: 11/24/2017 DATE OF DISCHARGE: 11/27/2017 PRIMARY CARE PHYSICIAN: Nanette Gutierrez M.D. DISCHARGE DIAGNOSES: 1. Acute on chronic diastolic congestive heart failure. 2. Recent urinary tract infection and sepsis. 3. Acute respiratory failure with hypoxia. 4. Diabetes mellitus type 2 without known complications. 5. Essential hypertension. 6. Diastolic heart failure secondary to concentric left ventricular hypertrophy. 7. Healthcare-associated pneumonia, suspected present on admission, ruled out. CONSULTATIONS: 1. Cardiology, Dr. Radha Lockhart. 2. Pulmonary Critical Care, Dr. Wali Fuentes. PROCEDURES PERFORMED: Echocardiogram 11/24/2017 that showed an ejection fraction of 55% to 60%, mild mitral regurgitation, structurally normal aortic valve without significant stenosis or regurgitation , moderate tricuspid regurgitation, elevated pulmonary artery systolic pressure of 50. HISTORY AND PHYSICAL: Ms. Canales is a 72-year-old female recently admitted for UTI and sepsis and di scharged on 11/23. She was told to drink plenty of fluids, which she did and developed acute shortne ss of breath. She states she had some subjective fevers and chills, but never actually took it, did have a nonproductive cough. She has no other current complaints and presented to the [facility] for evaluation. There, she was found to have an oxygen saturation of 77%. On arrival, she was immediately placed on BiPAP. Cultures were obtained and she was given IV vancomycin and Levaquin and we were called for ad mission. HOSPITAL COURSE: The patient was seen and examined by Dr. Hassan and admitted to the critical care unit as overflow from the [facility], there were no beds for BiPAP. She was seen by Cardiology and Pulmon jayne Critical Care. She is felt to be in acute on chronic diastolic congestive heart failure and was started on diuresis. Overnight 11/24-11/25, she improved. I took the case over. She was able to be weaned off of BiPAP, on nasal cannula was feeling better and breathing better. She was still feeling very weak, had perip heral edema and was overall not back to her baseline yet. She was transferred to the telemetry asher. Overnight 11/25-11/26, she was able to get up and walk [facility] physical therapy. She did make it all the way around the asher twice and was slowly weaned off of her oxygen and she was seen by Dr. Lockhart in followup, he felt that she would benefit from outpatient stress testing and possible catheterization. Given her chronic kidney disease stage 4, he is also l eery of doing any kind of procedure with a dye due to a possibility of setting end-stage renal diseas e. She was watched again overnight, 11/26-11/27. She had no arrhythmias on telemetry. She was doing we ll on room air. She was able to walk with physical therapy and recommended for outpatient cardiopulm onary rehab. She was stable for discharge with outpatient followup. During her hospital stay, she was noted to be profoundly anemic with a hemoglobin around 8. She did receive IV iron infusion on 11/26, repeat hemoglobin and hematocrit on 11/27 was minimally changed. She was ordered a second dose. Due to her chronic kidney disease IV, I felt that she was also likely erythropoietin deficient, I did discuss the case with Dr. Ramos Ta, who is her application defense manager and he agreed with 7500 unit dose o f erythropoietin prior to discharge and will see her in a week. She was given these medications, rem ained stable and was ready for discharge. PHYSICAL EXAMINATION: The patient was seen and examined on the day of discharge. Discharge plan and disposition was discussed with the patient, consultants, and family face to face. DISCHARGE MEDICATIONS: 1. Carvedilol 25 mg p.o. b.i.d. 2. Gabapentin 1200 mg p.o. q.p.m. 3. Levothyroxine 100 mcg daily. 4. Nifedipine 60 mg p.o. daily. 5. Omeprazole 20 mg p.o. daily. 6. Vitamin D3 1000 units p.o. q.p.m. 7. Biotin 1000 mcg daily. 8. Cipro 500 mg p.o. q.18 hours to complete her course as previously prescribed. 9. Cyanocobalamin 1000 mcg IM every 28 days per primary doctor's office. 10. Iron sulfate 325 mg p.o. b.i.d. 11. Fish oil 1200 mg b.i.d. 12. Fluticasone 44 mcg inhaled b.i.d. 13. Flovent HFA. 14. Lasix 20 mg daily. 15. Lantus 5 units subcu b.i.d. 16. Magnesium 250 mg p.o. at bedtime. 17. Multivitamin daily. FOLLOWUP APPOINTMENTS: 1. Primary care physician, Dr. Gutierrez within a week. 2. Dr. Lockhart in 2-3 weeks per his clinic. 3. Dr. Ramos Ta of Nephrology in a week per his request. 4. Dr. Fuentes of Pulmonary Critical Care in 2-3 weeks as needed. The patient has been set up for outpatient CHF Clinic and cardiopulmonary rehabilitation. DISCHARGE CONDITION: Stable. DISPOSITION: Being discharged home via private vehicle with her . DISCHARGE DIET: Heart healthy, diabetic, renal healthy diet recommended. We discussed no official f luid restriction; however, did recommend she keep it to around 2 liters a day until she speaks with Patrizia Lockhart and Dr. Ta at length. DISCHARGE ACTIVITY: Per cardiopulmonary limits.
--- NOTE | 2018-01-30 14:28 | EKG ---
Test Reason : Blood Pressure : / mmHG Vent. Rate : 083 BPM Atrial Rate : 083 BPM P-R Int : 128 ms QRS Dur : 078 ms QT Int : 400 ms P-R-T Axes : 018 009 -03 degrees QTc Int : 470 ms Normal sinus rhythm Normal ECG Confirmed by EMILIO VAZQUEZ, STEPHAN ([id number]), editor book BRINA GIL ([id number]) on 01/30/2018 2:28:02 PM Referred By: Confirmed By:STEPHAN JHAVERI MD
== END 2017-11-27 13:43 | disposition home or self-care (01) | DRG 291 ==
LOC: ERS 23:06 → CCU 11-24 02:55 → 2NO 11-25 16:20
PROVIDERS: ADMIT Internal Medicine; ATTEND Internal Medicine
DX: I13.0 Hypertensive heart and chronic kidney disease with heart failure and stage 1 through stage 4 chronic kidney disease, or unspecified chronic kidney disease (principal); J96.01 Acute respiratory failure with hypoxia; N18.4 Chronic kidney disease, stage 4 (severe); N17.9 Acute kidney failure, unspecified; I08.1 Rheumatic disorders of both mitral and tricuspid valves; E11.22 Type 2 diabetes mellitus with diabetic chronic kidney disease; I50.33 Acute on chronic diastolic (congestive) heart failure; N39.0 Urinary tract infection, site not specified; E03.9 Hypothyroidism, unspecified; K21.9 Gastro-esophageal reflux disease without esophagitis; E53.8 Deficiency of other specified B group vitamins; Z90.49 Acquired absence of other specified parts of digestive tract; Z90.710 Acquired absence of both cervix and uterus; Z88.0 Allergy status to penicillin; Z88.8 Allergy status to other drugs, medicaments and biological substances; E78.5 Hyperlipidemia, unspecified; J44.9 Chronic obstructive pulmonary disease, unspecified; G47.33 Obstructive sleep apnea (adult) (pediatric); D50.9 Iron deficiency anemia, unspecified; D63.1 Anemia in chronic kidney disease; E66.9 Obesity, unspecified; Z68.29 Body mass index [BMI] 29.0-29.9, adult; Z79.4 Long term (current) use of insulin
CPT/HCPCS: 36415; 36416; 71045; 71046; 80048; 80053; 81003; 81015; 82553; 82728; 82805; 83036; 83540; 83550; 83605; 83690; 83735; 83880; 84443; 84484; 85025; 87040; 93005; 93306; 93798; 94640; 94660; 96365; 96366; 96367; 96368; 96375; 99214; G0463; J0360; J1644; J1750; J1815; J1940; J1956; J3370; J3475; J7050; J7506; J7611; J7620; Q4081

== ENCOUNTER 2018-02-19 17:15 | Inpatient (IN) | payer MEDICARE ==
[2018-02-19 17:44] LABS: #Eosinphils 0.1 thou/uL (0.0-0.7); #Lymphocytes 1.6 thou/uL (1.20-3.40); #Monocytes 0.7 thou/uL (0.11-0.59); #Neutrophils 4.3 thou/uL (1.40-6.50); %Basophils 0.6 % (0.0-1.0); %Eosinophils 1.8 % (0.0-10.0); %Lymphocytes 23.5 % (21.0-51.0); %Neutrophils 63.1 % (42.0-75.0); Mean Corpuscular HGB CONC 34.5 g/dL (32.0-36.0); Mean Corpuscular Hemoglobin 30.7 pg (27.0-31.0); Mean Corpuscular Volume 88.9 fL (78.0-98.0); Mean Platelet Volume 7.4 fL (7.4-10.4); Platelet Count 234 thou/uL (130-400); Red Blood Cell (RBC) Count 2.94 mill/uL (4.20-5.40); White Blood Cell (WBC) Count 6.8 thou/uL (4.8-10.8)
[2018-02-19 17:50] LABS: INR-International Normal Ratio 1.2; PTT 26.4 SEC (22.9-36.1)
[2018-02-19 18:03] LABS: ALT (SGPT) 33 U/L (8-55); AST (SGOT) 20 U/L (5-34); Albumin 3.8 g/dL (3.4-4.8); Alkaline Phosphatase 64 U/L (40-150); Anion Gap 10 mmol/L (10-20); BUN (Urea Nitrogen) 66 mg/dL (9.8-20.1); Bilirubin, Total 0.4 mg/dL (0.2-1.2); Calc. Creatinine Clearance 0 mL/min (70-130); Calcium 9.1 mg/dL (7.8-10.44); Carbon Dioxide 29 mmol/L (23-31); Chloride 103 mmol/L (98-107); Estimated GFR-MDRD 22; Globulin 2.4 g/dL (2.4-3.5); Glucose 215 mg/dL (83-110); Potassium 4.4 mmol/L (3.5-5.1); Protein, Total 6.2 g/dL (6.0-8.3); Sodium 138 mmol/L (136-145)
[2018-02-19 19:11] LABS: Iron 48 ug/dL (50-170); Iron Binding Capacity, Total 225 mcg/dL (265-497)
[2018-02-19] MEDS ORDERED: Sodium Chloride 0.9% 1,000 ML IV SCH (22:15)
[2018-02-19 22:55] VITALS: BMI 30.7
[2018-02-20] MEDS ORDERED: Acetaminophen 325 MG TAB PO PRN
[2018-02-20] MEDS ORDERED: Ondansetron HCl/PF 4 MG/2 ML Vial IVP PRN
[2018-02-20] MEDS ORDERED: Cyanocobalamin 1000 MCG/ML VIAL IM SCH (00:15)
[2018-02-20] MEDS ORDERED: Dextrose 5% in Water 1,000 ML IV PRN (00:20)
[2018-02-20] MEDS ORDERED: Dextrose 50% Abboject 50 ML SYRINGE IVP PRN (00:20)
[2018-02-20] MEDS ORDERED: Carvedilol 25 MG TAB PO SCH (00:30)
[2018-02-20] MEDS ORDERED: Gabapentin 400 MG CAP PO SCH (00:30)
[2018-02-20 00:51] LABS: Hemoglobin 8.9 g/dL (12.0-16.0)
--- NOTE | 2018-02-20 05:15 | HP ---
CODE STATUS: FULL RESUSCITATION. PRIMARY CARE PHYSICIAN: Dr. Nanette Gutierrez. CHIEF COMPLAINT: Blood in the stools. Time of evaluation: around 10pm HISTORY OF PRESENT ILLNESS: This is a 72-year-old female patient with past medical history of watery stool. Patient reported that around 3:00 a.m. in the morning, she started to pass some liquid stools or had some bloody content. No clear triggers, no alleviating factors, symptoms are reported as mild-to- moderate, patient came to the hospital. She reported that she has a history of previous "blood vessel cauterization" through colonoscopy due to severe GI bleeding. Dr. Christiansen has seen the patient for further recommendations. REVIEW OF SYSTEMS: Constitutional: No fever or chills, generalized weakness. Respiratory: No cough, sputum production, shortness of breath. Cardiovascular : No chest pain, palpitation, or shortness of breath. Gastrointestinal: Patient has some nausea, patient has been passing bloody stools since 3:00 a.m. No abdominal pain. SORORITY MOTHER: No dizziness, headache, or feeling lightheaded. Genitourinary: No burning on urination. Extremities: No leg swelling. All other systems were reviewed and negative except for the findings mentioned above. PAST MEDICAL HISTORY: History of GI bleeding, kidney stone, diabetes type 2, hypertension, high cholesterol, hypothyroidism, skin cancer. PAST SURGICAL HISTORY: Thyroidectomy, appendectomy, cholecystectomy, hysterectomy, tonsillectomy, back surgery. PSYCHIATRIC HISTORY: Depression. SOCIAL HISTORY: No alcohol, no drug use, no smoking history. FAMILY HISTORY: Strong family history of diabetes. DRUG ALLERGIES: CYCLOBENZAPRINE and PENICILLINS. REPORTED MEDICATIONS: Nifedipine, pantoprazole, levothyroxine, fenofibrate, Lantus, carvedilol, ferrous sulfate, hydralazine, magnesium, gabapentin, Neurontin, Procardia, omeprazole. PHYSICAL EXAMINATION: VITAL SIGNS: On presentation blood pressure 152/71 with heart rate 64, respiratory rate was 16. Pain was 2/10, oxygen saturation was 96 on room air. GENERAL APPEARANCE: Patient is alert and oriented, not in acute distress. HEENT: Eye, normal conjunctivae, moist oral mucosa, anicteric. NECK: No JVD. RESPIRATORY: Bilateral air entry. No rales, no wheezing. Symmetric expansion. CARDIOVASCULAR: Normal rate and regular rhythm. No murmurs, no gallop, no edema. ABDOMEN: Soft, normal bowel sounds. MUSCULOSKELETAL: Baseline range of motion and strength. No tenderness. SKIN: Warm and intact. No pallor, no rash, no redness. NEUROLOGIC: Baseline sensory. No evidence of any new focal weakness. Baseline speech. Cranial nerve seems to be intact. PSYCHIATRIC: Patient is in good mood. No anxiety, oriented. Optimal judgment. LABORATORY DATA: Reviewed. The patient had white count of 6.8, hemoglobin 9, repeat hemoglobin 8.9, MCV 88, platelet count 234. Coagulation 15, INR 1.2, PTT 36.4. Sodium 138, potassium 4.4, chloride 103, carbon dioxide 29, anion gap 10, BUN 66, creatinine 2.16. Old records were reviewed. There were previous value of creatinine was about the same 2.0, glucose 215, calcium 9.1. Iron 48, TIBC 225. LFTs were normal. ASSESSMENT AND PLAN: Patient presented to the hospital for the following medical conditions: 1. Lower gastrointestinal bleeding. We will trend hemoglobin, we will monitor , we will adjust treatment as needed. Dr. Christiansen has seen the patient, we will follow recommendations. 2. History of diabetes, we will reconcile home medications, adjust treatment as needed. Problem is chronic,uncontrolled, blood sugar 215, hyperglycemia. sliding scale recommended. 3. Hypothyroidism, continue hormone replacement. 4. High cholesterol, low-cholesterol diet is advised. 5. Uncontrolled hypertension. Patient presented with blood pressure of systolic 163, reconciled home medications, adjust treatment as needed. We will not treat aggressively since patient has GI bleeding and has risk for hypertension. SHE
[2018-02-20 06:03] LABS: Hemoglobin 8.7 g/dL (12.0-16.0)
[2018-02-20 06:04] LABS: Anion Gap 11 mmol/L (10-20); BUN (Urea Nitrogen) 60 mg/dL (9.8-20.1); Calc. Creatinine Clearance 36 mL/min (70-130); Calcium 8.9 mg/dL (7.8-10.44); Carbon Dioxide 26 mmol/L (23-31); Chloride 104 mmol/L (98-107); Estimated GFR-MDRD 27; Glucose 131 mg/dL (83-110); Potassium 4.6 mmol/L (3.5-5.1); Sodium 136 mmol/L (136-145)
--- NOTE | 2018-02-20 06:08 | CON ---
DATE OF CONSULTATION: 02/19/2018 CHIEF COMPLAINT: Blood in stool. HISTORY OF PRESENT ILLNESS: Yesterday morning, Ms. Canales had sudden onset of lower abdominal crampi ng, discomfort followed by red bloody liquidy stool. She had 5 or 6 bloody stools through the day . She had one again at 3:00 this morning and then another one this afternoon, so she came ont o the emergency room for further care. She has had no ongoing abdominal pain today. No nausea or vo miting. 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 She also wa s noted to have left-sided diverticulosis, but has not had obvious bleeding from these previously. S he has chronic anemia related to iron deficiency and also chronic renal insufficiency. She has been treated with Epogen previously. She was admitted to the hospital in November with diastolic congestive heart failure. She required BiPAP during the hospitalization. PAST MEDICAL HISTORY: Hypertension, chronic kidney disease stage 4, diastolic heart failure, hypothy roidism, GERD, iron deficiency anemia and GI bleed previously related to cecal arterial venous malfor mations. These were treated with bipolar electrocautery once and argon plasma coagulation once. Las t cautery was performed in 2014. PAST SURGICAL HISTORY: Shoulder surgery, appendectomy, thyroidectomy, hysterectomy, cholecystectomy, and colonoscopy. FAMILY HISTORY: Negative for GI malignancies. SOCIAL HISTORY: No alcohol, tobacco or drugs. ALLERGIES: PENICILLIN, FLEXERIL. MEDICATIONS: Prior to admission, carvedilol, gabapentin, levothyroxine, nifedipine, omeprazole, iron , B12, vitamin D3, biotin, fish oil, fluticasone, Flovent, Lasix, Lantus, magnesium, multiple vitamin . REVIEW OF SYSTEMS: Negative x10 systems reviewed except as stated in the history of present illness. PHYSICAL EXAMINATION: VITAL SIGNS: Blood pressure 171/75, pulse 64, temperature 98.4, oxygen saturation 94% on room air. GENERAL: She is in no acute distress, alert and oriented x3. HEENT: Eyes have no scleral icterus. Oropharynx is clear, without lesions. NECK: No cervical or supraclavicular lymphadenopathy. LUNGS: Clear to auscultation bilaterally. HEART: Regular rate and rhythm without murmur. ABDOMEN: Soft, nontender, nondistended. Bowel sounds are present. EXTREMITIES: No lower extremity edema. LABORATORY: White blood cell count 6.8, hemoglobin 9.0, platelets 234. INR 1.2, creatinine 2.16. B ilirubin 0.4, AST 20, ALT 33, alkaline phosphatase 64. Iron 48, TIBC 225, ferritin 36.9. IMPRESSION: 1. Hematochezia. 2. Anemia secondary to acute blood loss. Really her hemoglobin is not far from her baseline. She d oes have chronic anemia related to iron deficiency, but also chronic kidney disease. She has previou sly had cecal vascular ectasias cauterized. She likely has recurrence of bleeding from these sites. She does have a history of diverticulosis in the colon as well and could have diverticular bleeding. PLAN: Colonoscopy to cauterize the cecal vascular ectasias further. She has a hard time with the darin wel prep and we will give this slowly tomorrow. If able, we will follow through with colonoscopy marina orrow. If she is unable to get the prep down quickly enough, then the procedure can be done on
[2018-02-20] MEDS: Mometasone 100 MCG HFA INHALER INH SCH ×2 (06:25→18:49)
[2018-02-20] MEDS ORDERED: GoLYTELY 4,000 ml Bottle PO SCH (07:00)
[2018-02-20] MEDS: Multivit, Therapeutic 1 TAB PO SCH (07:34)
[2018-02-20] MEDS: NIFEdipine XL 60 MG TAB PO SCH (07:35)
[2018-02-20] MEDS: Furosemide 20 MG TAB PO SCH (07:35)
[2018-02-20] MEDS: Levothyroxine Sodium 100 MCG TAB PO SCH (07:35)
[2018-02-20] MEDS: Ferrous Sulfate 325 MG TAB PO SCH ×2 (07:35→21:14)
[2018-02-20] MEDS: Gabapentin 300 MG CAP PO SCH (07:35)
[2018-02-20] MEDS: Fish Oil 1,000 MG CAP PO SCH ×2 (07:36→21:14)
[2018-02-20] MEDS: Carvedilol 25 MG TAB PO SCH ×2 (07:36→21:14)
[2018-02-20] MEDS ORDERED: Insulin Regular 300 UNITS/3 ML VIAL SC PRN (08:47)
[2018-02-20] MEDS ORDERED: Non-Formulary Item 1 EACH (Biotin [Mega Biotin] 10,000 MCG) PO SCH (09:00)
[2018-02-20] MEDS ORDERED: Insulin Glargine 35 UNITS in Pre-Filled Syringe 1 EACH SC SCH (09:00)
[2018-02-20 12:28] LABS: Hemoglobin 9.7 g/dL (12.0-16.0)
[2018-02-20] MEDS ORDERED: PROPOFOL 200 MG/20 ML VIAL ONE (14:47)
[2018-02-20] MEDS ORDERED: Lidocaine 1% PF 5 ML VIAL ONE (14:47)
--- NOTE | 2018-02-20 16:30 | PDOC.PN ---
- Subjective Encounter Start Date: 02/20/18 Encounter Start Time: 12:00 Patient seen and examined for GI bleeding. Had some dark stool earlier - now brown. No new complaints. No overnight events - Objective Resuscitation Status: Resuscitation Status FULL:Full Resuscitation MAR Reviewed: Yes Vital Signs & Weight: Vital Signs (12 hours) Temp Pulse Resp BP Pulse Ox 02/20/18 11:04 97.8 F 56 L 18 141/65 H 91 L 02/20/18 08:00 98.6 F 62 16 02/20/18 07:35 62 02/20/18 07:27 98.5 F 65 12 147/67 H 92 L 02/20/18 06:25 62 16 95 02/20/18 05:12 98.6 F 65 16 170/79 H 98 Weight Weight 179 lb 3.2 oz I&O: 02/19/18 02/20/18 02/21/18 06:59 06:59 06:59 Intake Total 350 Output Total 900 Balance -550 Result Diagrams: 02/20/18 12:20 02/20/18 00:36 Additional Labs: Accuchecks 02/20/18 02/20/18 10:44 05:16 POC Glucose 118 H 134 H Phys Exam - Physical Examination Constitutional: NAD Respiratory: no wheezing, no rhonchi Cardiovascular: RRR, no rub Gastrointestinal: soft, non-tender, positive bowel sounds Musculoskeletal: no edema Neurological: moves all 4 limbs Dx/Plan (1) GI bleed Code(s): K92.2 - GASTROINTESTINAL HEMORRHAGE, UNSPECIFIED Status: Acute Plan: Colonoscopy today, GI input appreciated. Cont Colon prep, Cont PPI (2) Acute blood loss anemia Code(s): D62 - ACUTE POSTHEMORRHAGIC ANEMIA Status: Acute Plan: Monitor HH (3) DM2 (diabetes mellitus, type 2) Status: Chronic Qualifiers: Chronic kidney disease stage: stage 4 (severe) (4) HTN (hypertension) Code(s): I10 - ESSENTIAL (PRIMARY) HYPERTENSION Status: Chronic Plan: Cont current HTN meds - Plan DVT proph w/SCDs Review of Systems - Review of Systems Respiratory: negative: Cough, Dry, Shortness of Breath, Hemoptysis, SOB with Excertion, Pleuritic Pain, Sputum, Wheezing Cardiovascular: negative: chest pain, palpitations, orthopnea, paroxysmal nocturnal dyspnea, edema, light headedness, other - Medications/Allergies Allergies/Adverse Reactions: Allergies Allergy/AdvReac Type Severity Reaction Status Date / Time Penicillins Allergy Severe Verified 02/19/18 23:02 cyclobenzaprine HCl AdvReac Verified 05/09/16 15:44 [From Flexeril] Medications: Current Medications Acetaminophen (Tylenol) 650 mg PO Q4H PRN PRN Reason: Headache/Fever or Pain Carvedilol (Coreg) 25 mg PO BID [facility] Last Admin: 02/20/18 07:36 Dose: 25 mg Cholecalciferol (Vitamin D3) 1,000 units PO DAILY [facility] Last Admin: 02/20/18 07:36 Dose: 1,000 units Cyanocobalamin (Vitamin B-12) 500 mcg IM Q28D [facility] Last Admin: 02/20/18 00:32 Dose: Not Given Dextrose/Water (Dextrose 50%) 25 gm IVP PRN PRN PRN Reason: HYPOGLYCEMIA PROTOCOL Ferrous Sulfate (Feosol) 325 mg PO BID [facility] Last Admin: 02/20/18 07:35 Dose: 325 mg Fish Oil (Fish Oil) 1,000 mg PO BID [facility] Last Admin: 02/20/18 07:36 Dose: 1,000 mg Furosemide (Lasix) 20 mg PO DAILY [facility] Last Admin: 02/20/18 07:35 Dose: 20 mg Gabapentin (Neurontin) 600 mg PO DAILY [facility] Last Admin: 02/20/18 07:35 Dose: 600 mg Gabapentin (Neurontin) 1,200 mg PO QPM [facility] Glucagon (Glucagon) 1 mg IM PRN PRN PRN Reason: HYPOGLYCEMIA PROTOCOL Insulin Glargine 11 units/ (Miscellaneous Medication) 0.11 mls @ 0 mls/hr SC [facility] Dextrose/Water (D5w) 1,000 mls @ 0 mls/hr IV INF PRN; As Directed PRN Reason: HYPOGLYCEMIA PROTOCOL Insulin Human Regular (Humulin R) 0 units SC .MILD SLIDING PRN; Protocol PRN Reason: MILD SLIDING SCALE Insulin Human Regular (Humulin R) 0 units SC .BEDTIME SLIDING SC PRN PRN Reason: Bedtime Correctional Scale Levothyroxine Sodium (Synthroid) 100 mcg PO QAM [facility] Last Admin: 02/20/18 07:35 Dose: 100 mcg Magnesium Oxide (Magnesium Oxide) 250 mg PO HS [facility] Mometasone Furoate (Asmanex Hfa 100 Mcg) 1 puff INH BID-RT [facility] Last Admin: 02/20/18 06:25 Dose: 1 puff Multivitamins (Theragran) 1 tab PO DAILY [facility] Last Admin: 02/20/18 07:34 Dose: 1 tab Nifedipine (Procardia Xl) 60 mg PO DAILY [facility] Last Admin: 02/20/18 07:35 Dose: 60 mg Ondansetron HCl (Zofran) 4 mg IVP Q6H PRN PRN Reason: Nausea/Vomiting Last Admin: 02/20/18 07:30 Dose: 4 mg Pantoprazole Sodium (Protonix) 40 mg PO DAILY [facility] Last Admin: 02/20/18 07:34 Dose: 40 mg
--- NOTE | 2018-02-20 21:07 | OP ---
DATE OF PROCEDURE: 02/20/2018 PROCEDURE: Colonoscopy with control of hemorrhage and snare polypectomy. PREOPERATIVE DIAGNOSIS: Lower gastrointestinal bleed. PROCEDURE IN DETAIL: Informed consent was obtained. The patient was sedated with total intravenous anesthesia. The rectal exam was performed and was normal. The preparation quality was good. There was some pink-tinge bloody effluent scattered throughout the colon. There was moderate diverticulosi s of the sigmoid colon. The colonoscope was advanced to the terminal ileum. The mucosa of the termi nal ileum was normal. The ileocecal valve and appendiceal orifice were clearly identified. There we re multiple arteriovenous malformations in the cecum. Some of these were small, measuring 2-3 mm and there were a couple of larger ones as well. All the visible vascular ectasias were cauterized with argon plasma. The wattage was increased from 15-20 with better effect. There was active bleeding fr om a couple of the AVMs when they were initially visualized. There is good hemostasis achieved with the argon plasma coagulation. A 6 mm polyp was removed from the distal transverse colon by snare [place] polypectomy. The remainder of the colonic mucosa was normal. Retroflex views in the rectum wer e unremarkable. IMPRESSION: 1. 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 There were fairly extensive vascular ectasias with numerous areas treated. 2. Moderate diverticulosis of the sigmoid colon. 3. A 6 mm polyp removed from the distal transverse colon. 4. Otherwise normal colonoscopy to the terminal ileum. RECOMMENDATIONS: 1. Continue to follow for overt bleeding and follow trend of the hemoglobin. 2. If she fails to respond adequately to iron therapy over the next 2-4 weeks or has ongoing bleedin g, then follow up colonoscopy with further argon plasma coagulation of the vascular ectasias can be p erformed. 3. The recommendation is to follow up in GI clinic in 2-4 weeks.
[2018-02-20] MEDS: Insulin Glargine 11 UNITS in Pre-Filled Syringe 1 EACH SC SCH (21:13)
[2018-02-20] MEDS: Magnesium Oxide 250 MG TAB PO SCH (21:14)
[2018-02-20] MEDS: Gabapentin 400 MG CAP PO SCH (21:14)
[2018-02-21 04:32] LABS: #Eosinphils 0.2 thou/uL (0.0-0.7); #Lymphocytes 1.4 thou/uL (1.20-3.40); #Monocytes 0.7 thou/uL (0.11-0.59); %Basophils 0.2 % (0.0-1.0); %Eosinophils 2.9 % (0.0-10.0); %Lymphocytes 22.3 % (21.0-51.0); %Monocytes 11.3 % (0.0-10.0); %Neutrophils 63.4 % (42.0-75.0); Mean Corpuscular HGB CONC 33.5 g/dL (32.0-36.0); Mean Corpuscular Hemoglobin 30.4 pg (27.0-31.0); Mean Corpuscular Volume 90.7 fL (78.0-98.0); Mean Platelet Volume 7.6 fL (7.4-10.4); Platelet Count 204 thou/uL (130-400); RBC Distribution Width 13.1 % (11.5-14.5); Red Blood Cell (RBC) Count 2.64 mill/uL (4.20-5.40); White Blood Cell (WBC) Count 6.3 thou/uL (4.8-10.8)
[2018-02-21 04:49] LABS: Anion Gap 9 mmol/L (10-20); BUN (Urea Nitrogen) 40 mg/dL (9.8-20.1); Calc. Creatinine Clearance 39 mL/min (70-130); Calcium 8.8 mg/dL (7.8-10.44); Carbon Dioxide 28 mmol/L (23-31); Chloride 106 mmol/L (98-107); Estimated GFR-MDRD 30; Glucose 161 mg/dL (83-110); Potassium 4.2 mmol/L (3.5-5.1); Sodium 139 mmol/L (136-145)
[2018-02-21] MEDS: Mometasone 100 MCG HFA INHALER INH SCH ×2 (06:22→18:38)
[2018-02-21] MEDS ORDERED: Iron Sucrose Complex 200 MG in Sodium Chloride 0.9% 250 ML 250 ML IVPB SCH (08:45)
[2018-02-21] MEDS ORDERED: Insulin Glargine 10 UNITS in Pre-Filled Syringe 1 EACH SC SCH (09:00)
[2018-02-21] MEDS: Gabapentin 300 MG CAP PO SCH (09:21)
[2018-02-21] MEDS: Fish Oil 1,000 MG CAP PO SCH ×2 (09:22→21:08)
[2018-02-21] MEDS: Ferrous Sulfate 325 MG TAB PO SCH ×2 (09:22→21:08)
[2018-02-21] MEDS: Carvedilol 25 MG TAB PO SCH ×2 (09:22→21:08)
[2018-02-21] MEDS: Multivit, Therapeutic 1 TAB PO SCH (09:23)
[2018-02-21] MEDS: NIFEdipine XL 60 MG TAB PO SCH (09:24)
[2018-02-21] MEDS: Furosemide 20 MG TAB PO SCH (09:25)
[2018-02-21] MEDS ORDERED: Sodium Ferric Gluconate 250 MG in Sodium Chloride 0.9% 100 ML IVPB SCH (09:30)
[2018-02-21] MEDS: Levothyroxine Sodium 100 MCG TAB PO SCH (10:33)
[2018-02-21] MEDS: Insulin Regular 300 UNITS/3 ML VIAL SC PRN ×2 (11:56→17:04)
--- NOTE | 2018-02-21 13:46 | PRG ---
DATE OF SERVICE: 02/21/2018 SUBJECTIVE: Ms. Canales has had no stool output since the colonoscopy yesterday. She feels better an d just wanted to take a walk in the [place]. PHYSICAL EXAMINATION: VITAL SIGNS: Temperature 98.1, pulse 66, blood pressure 156/75. GENERAL: She is in no acute distress, alert, and oriented. LUNGS: Clear to auscultation bilaterally. HEART: Regular rate and rhythm. ABDOMEN: Soft, nontender, nondistended. Bowel sounds are present. EXTREMITIES: No lower extremity edema. LABORATORY DATA: Her hemoglobin is 8.0 today. Hemoglobin on 02/20/2018 was 8.7 and at noon yesterda y 9.7. IMPRESSION: Lower gastrointestinal bleed secondary to vascular ectasias in the cecum, status post el ectrocautery yesterday. She has had no further overt bleeding since then. Her hemoglobin did decrea se to 8.0 today. Yesterday morning, her hemoglobin was 8.7. We will recheck the lab value again marina orrow morning and follow clinically today. She is tolerating a solid diet well. RECOMMENDATIONS: Recheck her hemoglobin in the morning and evaluate for further overt bleeding. If there is no further significant overt bleeding and her hemoglobin is stable, she can discharge home t omorrow.
[2018-02-21 14:15] LABS: Hemoglobin 8.9 g/dL (12.0-16.0)
[2018-02-21 19:54] LABS: Hemoglobin 8.1 g/dL (12.0-16.0)
--- NOTE | 2018-02-21 20:42 | PDOC.PN ---
- Subjective Encounter Start Date: 02/21/18 Encounter Start Time: 09:30 Patient seen and examined for GI bleeding. No new complaints. No new GI bleeding. No BM since colonoscopy. No overnight events. Tolerating regular diet. - Objective Resuscitation Status: Resuscitation Status FULL:Full Resuscitation MAR Reviewed: Yes Vital Signs & Weight: Vital Signs (12 hours) Temp Pulse Resp BP BP BP Pulse Ox 02/21/18 18:38 66 16 95 02/21/18 16:00 98.7 F 65 16 140/62 98 02/21/18 11:34 98.7 F 66 18 156/75 H 95 02/21/18 09:24 63 149/72 H 02/21/18 08:55 98.4 F 63 16 98 02/21/18 08:44 98.4 F 63 20 149/72 H 98 Weight Weight 178 lb 1.6 oz I&O: 02/20/18 02/21/18 02/22/18 06:59 06:59 06:59 Intake Total 350 2400 1230 Output Total 900 1250 Balance -550 1150 1230 Result Diagrams: 02/21/18 19:47 02/21/18 04:01 Additional Labs: Accuchecks 02/21/18 02/21/18 02/21/18 16:51 11:35 04:02 POC Glucose 173 H 278 H 178 H Laboratory Tests 02/20/18 02/21/18 12:20 04:01 Hgb 9.7 L 8.0 L Phys Exam - Physical Examination Constitutional: NAD Respiratory: no wheezing, no rhonchi Cardiovascular: RRR, no rub Gastrointestinal: soft, non-tender, no distention, positive bowel sounds Musculoskeletal: no edema Neurological: moves all 4 limbs Psychiatric: A&O x 3 Dx/Plan (1) GI bleed Code(s): K92.2 - GASTROINTESTINAL HEMORRHAGE, UNSPECIFIED Status: Acute Comment: s/p Colonoscopy - Vascular ectasia - s/o cautery (2) Acute blood loss anemia Code(s): D62 - ACUTE POSTHEMORRHAGIC ANEMIA Status: Acute (3) DM2 (diabetes mellitus, type 2) Status: Chronic Qualifiers: Chronic kidney disease stage: stage 4 (severe) Comment: on sliding scale (4) HTN (hypertension) Code(s): I10 - ESSENTIAL (PRIMARY) HYPERTENSION Status: Chronic Comment: on home HTN meds (5) Iron deficiency Code(s): E61.1 - IRON DEFICIENCY Status: Acute - Plan DVT proph w/SCDs 1 dose IV iron -: Consult teacher asst for Diverticulosis diet education -: AM Hemoglobin check -: Cont to monitor -: Change to inpatient. Review of Systems - Review of Systems Respiratory: negative: Cough, Dry, Shortness of Breath, Hemoptysis, SOB with Excertion, Pleuritic Pain, Sputum, Wheezing Cardiovascular: negative: chest pain, palpitations, orthopnea, paroxysmal nocturnal dyspnea, edema, light headedness, other - Medications/Allergies Allergies/Adverse Reactions: Allergies Allergy/AdvReac Type Severity Reaction Status Date / Time Penicillins Allergy Severe Verified 02/19/18 23:02 cyclobenzaprine HCl AdvReac Verified 05/09/16 15:44 [From Flexeril] Medications: Current Medications Acetaminophen (Tylenol) 650 mg PO Q4H PRN PRN Reason: Headache/Fever or Pain Carvedilol (Coreg) 25 mg PO BID [facility] Last Admin: 02/21/18 09:22 Dose: 25 mg Cholecalciferol (Vitamin D3) 1,000 units PO DAILY [facility] Last Admin: 02/21/18 09:22 Dose: 1,000 units Cyanocobalamin (Vitamin B-12) 500 mcg IM Q28D [facility] Last Admin: 02/20/18 00:32 Dose: Not Given Dextrose/Water (Dextrose 50%) 25 gm IVP PRN PRN PRN Reason: HYPOGLYCEMIA PROTOCOL Ferrous Sulfate (Feosol) 325 mg PO BID [facility] Last Admin: 02/21/18 09:22 Dose: 325 mg Fish Oil (Fish Oil) 1,000 mg PO BID [facility] Last Admin: 02/21/18 09:22 Dose: 1,000 mg Furosemide (Lasix) 20 mg PO DAILY [facility] Last Admin: 02/21/18 09:25 Dose: 20 mg Gabapentin (Neurontin) 600 mg PO DAILY [facility] Last Admin: 02/21/18 09:21 Dose: 600 mg Gabapentin (Neurontin) 1,200 mg PO QPM [facility] Last Admin: 02/20/18 21:14 Dose: 1,200 mg Glucagon (Glucagon) 1 mg IM PRN PRN PRN Reason: HYPOGLYCEMIA PROTOCOL Insulin Glargine 11 units/ (Miscellaneous Medication) 0.11 mls @ 0 mls/hr SC HS [facility] Last Admin: 02/20/18 21:13 Dose: 0.11 mls Dextrose/Water (D5w) 1,000 mls @ 0 mls/hr IV INF PRN; As Directed PRN Reason: HYPOGLYCEMIA PROTOCOL Insulin Glargine 35 units/ (Miscellaneous Medication) 0.35 mls @ 0 mls/hr SC QAM [facility] Insulin Human Regular (Humulin R) 0 units SC .MILD SLIDING PRN; Protocol PRN Reason: MILD SLIDING SCALE Last Admin: 02/21/18 17:04 Dose: 2 unit Insulin Human Regular (Humulin R) 0 units SC .BEDTIME SLIDING SC PRN PRN Reason: Bedtime Correctional Scale Levothyroxine Sodium (Synthroid) 100 mcg PO QAM [facility] Last Admin: 02/21/18 10:33 Dose: 100 mcg Magnesium Oxide (Magnesium Oxide) 250 mg PO [facility] Last Admin: 02/20/18 21:14 Dose: 250 mg Mometasone Furoate (Asmanex Hfa 100 Mcg) 1 puff INH BID-RT [facility] Last Admin: 02/21/18 18:38 Dose: 1 puff Multivitamins (Theragran) 1 tab PO DAILY [facility] Last Admin: 02/21/18 09:23 Dose: 1 tab Nifedipine (Procardia Xl) 60 mg PO DAILY [facility] Last Admin: 02/21/18 09:24 Dose: 60 mg Ondansetron HCl (Zofran) 4 mg IVP Q6H PRN PRN Reason: Nausea/Vomiting Last Admin: 02/20/18 07:30 Dose: 4 mg Pantoprazole Sodium (Protonix) 40 mg PO DAILY [facility] Last Admin: 02/21/18 09:23 Dose: 40 mg
[2018-02-21] MEDS: Gabapentin 400 MG CAP PO SCH (21:07)
[2018-02-21] MEDS: Insulin Glargine 11 UNITS in Pre-Filled Syringe 1 EACH SC SCH (21:08)
[2018-02-21] MEDS: Magnesium Oxide 250 MG TAB PO SCH (21:08)
[2018-02-22 05:06] LABS: Hemoglobin 8.2 g/dL (12.0-16.0)
[2018-02-22] MEDS: Mometasone 100 MCG HFA INHALER INH SCH ×2 (07:05→19:30)
[2018-02-22] MEDS: NIFEdipine XL 60 MG TAB PO SCH (08:28)
[2018-02-22] MEDS: Furosemide 20 MG TAB PO SCH (08:29)
[2018-02-22] MEDS: Gabapentin 300 MG CAP PO SCH (08:29)
[2018-02-22] MEDS: Multivit, Therapeutic 1 TAB PO SCH (08:29)
[2018-02-22] MEDS: Fish Oil 1,000 MG CAP PO SCH ×2 (08:30→20:33)
[2018-02-22] MEDS: Carvedilol 25 MG TAB PO SCH ×2 (08:30→20:33)
[2018-02-22] MEDS: Ferrous Sulfate 325 MG TAB PO SCH (08:30)
[2018-02-22] MEDS: Insulin Glargine 35 UNITS in Pre-Filled Syringe 1 EACH SC SCH (08:50)
[2018-02-22] MEDS: Levothyroxine Sodium 100 MCG TAB PO SCH (11:55)
[2018-02-22] MEDS: Insulin Regular 300 UNITS/3 ML VIAL SC PRN ×2 (11:58→17:06)
[2018-02-22 13:37] LABS: Hemoglobin 8.5 g/dL (12.0-16.0)
--- NOTE | 2018-02-22 15:03 | PRG ---
DATE OF SERVICE: 02/22/2018 SUBJECTIVE: Ms. Canales had one black stool this morning. She has had no abdominal pain or other com plaints. PHYSICAL EXAMINATION: VITAL SIGNS: Temperature 98.1, pulse 63, blood pressure 133/70. GENERAL: She is in no acute distress. She is alert and oriented x3. LUNGS: Clear to auscultation bilaterally. HEART: Regular rate and rhythm. ABDOMEN: Soft, nontender, nondistended. Bowel sounds are present. EXTREMITIES: No lower extremity edema. LABORATORY DATA: Hemoglobin has fluctuated, again this afternoon her hemoglobin is 8.5, and on admis franci, her hemoglobin was 9.0. 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 Status post electrocautery of the arteriovenous malfunctions. She did pass a black stool today, which could be indicating that she had blood, some from the cautery sites. Her hemoglobin seems fairly stable; frost paulina, it has been fluctuating between 8 and 9. RECOMMENDATIONS: We would monitor for further overt bleeding. If she has no further significant ove rt bleeding and her hemoglobin remained stable in the morning, she can be discharged home tomorrow mo rning.
[2018-02-22] MEDS: Gabapentin 400 MG CAP PO SCH (20:33)
[2018-02-22] MEDS: Insulin Glargine 11 UNITS in Pre-Filled Syringe 1 EACH SC SCH (20:33)
[2018-02-22] MEDS: Magnesium Oxide 250 MG TAB PO SCH (20:33)
--- NOTE | 2018-02-22 21:15 | PDOC.PN ---
- Subjective Encounter Start Date: 02/22/18 Encounter Start Time: 10:00 Patient seen and examined for GI bleeding. Had dark stool this AM. No N/V/ lightheadedness. Feels weak. No other complaints. No overnight events - Objective Resuscitation Status: Resuscitation Status FULL:Full Resuscitation MAR Reviewed: Yes Vital Signs & Weight: Vital Signs (12 hours) Temp Pulse Resp BP BP Pulse Ox 02/22/18 20:00 98.2 F 69 16 147/73 H 93 L 02/22/18 19:30 71 18 97 02/22/18 16:00 98.2 F 66 20 155/77 H 96 02/22/18 11:04 98.1 F 63 16 133/70 97 Weight Weight 178 lb 1.6 oz I&O: 02/21/18 02/22/18 02/23/18 06:59 06:59 06:59 Intake Total 2400 1230 1320 Output Total 1250 Balance 1150 1230 1320 Result Diagrams: 02/23/18 03:58 02/21/18 04:01 Additional Labs: Accuchecks 02/22/18 02/22/18 02/21/18 16:13 11:08 21:14 POC Glucose 234 H 210 H 215 H Phys Exam - Physical Examination Constitutional: NAD Respiratory: no wheezing, no rhonchi Cardiovascular: RRR, no rub Gastrointestinal: soft, non-tender, no distention, positive bowel sounds Musculoskeletal: no edema Neurological: moves all 4 limbs Dx/Plan (1) GI bleed Code(s): K92.2 - GASTROINTESTINAL HEMORRHAGE, UNSPECIFIED Status: Acute Comment: s/p Colonoscopy - Vascular ectasia - s/o cautery (2) Acute blood loss anemia Code(s): D62 - ACUTE POSTHEMORRHAGIC ANEMIA Status: Acute (3) DM2 (diabetes mellitus, type 2) Status: Chronic Qualifiers: Chronic kidney disease stage: stage 4 (severe) Comment: on sliding scale (4) HTN (hypertension) Code(s): I10 - ESSENTIAL (PRIMARY) HYPERTENSION Status: Chronic Comment: on home HTN meds (5) Iron deficiency Code(s): E61.1 - IRON DEFICIENCY Status: Acute - Plan DVT proph w/SCDs Hb 8.2 today, Will repeat HH later today -: Cont current meds as below -: DC home later today or in AM if ok with GI -: Cont to monitor Review of Systems - Review of Systems Respiratory: negative: Cough, Dry, Shortness of Breath, Hemoptysis, SOB with Excertion, Pleuritic Pain, Sputum, Wheezing Cardiovascular: negative: chest pain, palpitations, orthopnea, paroxysmal nocturnal dyspnea, edema, light headedness, other - Medications/Allergies Allergies/Adverse Reactions: Allergies Allergy/AdvReac Type Severity Reaction Status Date / Time Penicillins Allergy Severe Verified 02/19/18 23:02 cyclobenzaprine HCl AdvReac Verified 05/09/16 15:44 [From Flexeril] Medications: Current Medications Acetaminophen (Tylenol) 650 mg PO Q4H PRN PRN Reason: Headache/Fever or Pain Carvedilol (Coreg) 25 mg PO BID [facility] Last Admin: 02/22/18 20:33 Dose: 25 mg Cholecalciferol (Vitamin D3) 1,000 units PO DAILY [facility] Last Admin: 02/22/18 08:30 Dose: 1,000 units Cyanocobalamin (Vitamin B-12) 500 mcg IM Q28D [facility] Last Admin: 02/20/18 00:32 Dose: Not Given Dextrose/Water (Dextrose 50%) 25 gm IVP PRN PRN PRN Reason: HYPOGLYCEMIA PROTOCOL Fish Oil (Fish Oil) 1,000 mg PO BID [facility] Last Admin: 02/22/18 20:33 Dose: 1,000 mg Furosemide (Lasix) 20 mg PO DAILY [facility] Last Admin: 02/22/18 08:29 Dose: 20 mg Gabapentin (Neurontin) 600 mg PO DAILY [facility] Last Admin: 02/22/18 08:29 Dose: 600 mg Gabapentin (Neurontin) 1,200 mg PO QPM [facility] Last Admin: 02/22/18 20:33 Dose: 1,200 mg Glucagon (Glucagon) 1 mg IM PRN PRN PRN Reason: HYPOGLYCEMIA PROTOCOL Insulin Glargine 11 units/ (Miscellaneous Medication) 0.11 mls @ 0 mls/hr SC HS [facility] Last Admin: 02/22/18 20:33 Dose: 0.11 mls Dextrose/Water (D5w) 1,000 mls @ 0 mls/hr IV INF PRN; As Directed PRN Reason: HYPOGLYCEMIA PROTOCOL Insulin Glargine 35 units/ (Miscellaneous Medication) 0.35 mls @ 0 mls/hr SC QAM [facility] Last Admin: 02/22/18 08:50 Dose: 0.35 mls Insulin Human Regular (Humulin R) 0 units SC .MILD SLIDING PRN; Protocol PRN Reason: MILD SLIDING SCALE Last Admin: 02/22/18 17:06 Dose: 3 unit Insulin Human Regular (Humulin R) 0 units SC .BEDTIME SLIDING SC PRN PRN Reason: Bedtime Correctional Scale Levothyroxine Sodium (Synthroid) 100 mcg PO QAM [facility] Last Admin: 02/22/18 11:55 Dose: 100 mcg Magnesium Oxide (Magnesium Oxide) 250 mg PO HS [facility] Last Admin: 02/22/18 20:33 Dose: 250 mg Mometasone Furoate (Asmanex Hfa 100 Mcg) 1 puff INH BID-RT [facility] Last Admin: 02/22/18 19:30 Dose: 1 puff Multivitamins (Theragran) 1 tab PO DAILY [facility] Last Admin: 02/22/18 08:29 Dose: 1 tab Nifedipine (Procardia Xl) 60 mg PO DAILY [facility] Last Admin: 02/22/18 08:28 Dose: 60 mg Ondansetron HCl (Zofran) 4 mg IVP Q6H PRN PRN Reason: Nausea/Vomiting Last Admin: 02/20/18 07:30 Dose: 4 mg Pantoprazole Sodium (Protonix) 40 mg PO DAILY [facility] Last Admin: 02/22/18 08:30 Dose: 40 mg
[2018-02-23] MEDS: Mometasone 100 MCG HFA INHALER INH SCH (06:47)
[2018-02-23] MEDS: Levothyroxine Sodium 100 MCG TAB PO SCH (07:11)
[2018-02-23] MEDS: Gabapentin 300 MG CAP PO SCH (08:23)
[2018-02-23] MEDS: Carvedilol 25 MG TAB PO SCH (08:24)
[2018-02-23] MEDS: NIFEdipine XL 60 MG TAB PO SCH (08:24)
[2018-02-23] MEDS: Multivit, Therapeutic 1 TAB PO SCH (08:24)
[2018-02-23] MEDS: Furosemide 20 MG TAB PO SCH (08:24)
[2018-02-23] MEDS: Fish Oil 1,000 MG CAP PO SCH (08:25)
[2018-02-23] MEDS: Insulin Glargine 35 UNITS in Pre-Filled Syringe 1 EACH SC SCH (08:56)
[2018-02-23 11:20] VITALS: BP 163/80; TEMP 98.3
--- NOTE | 2018-02-23 15:01 | DIS ---
DATE OF DISCHARGE: 02/23/2018 DISCHARGE DISPOSITION: Home. FOLLOWUP: 1. Follow up with primary care physician, Dr. Nanette Gutierrez, in 1 week. 2. Follow up with Gastroenterology, Dr. Audie Christiansen, in 2 weeks. ALLERGIES: PENICILLIN and FLEXERIL. DISCHARGE MEDICATIONS: Same as admission medication. No changes were made. BRIEF HOSPITAL COURSE: Patient is a 72-year-old female with GI bleeding in the past, presented to [facility] with rectal bleeding. Please refer to the history and physical for further details. The patient was admitted to the hospital with a diagnosis of lower GI bleeding. The patient was seen by Gastroenterology, Dr. Christiansen. Colonoscopy was performed on 02/20/2018 that showed multiple vascul ar ectasias in the cecum with active bleeding that was cauterized with argon plasma coagulation. Per Dr. Christiansen, patient had fairly extensive vascular ectasia. Colonoscopy also showed moderate divertic ulosis of the sigmoid colon. A 6 mm polyp was removed from the distal transverse colon. Her H and H was monitored on a daily basis. Her hemoglobin on admission was 9.0. Yesterday morning, the patien t had another dark tarry stool. For this reason, she was monitored overnight. Her H and H has remai mee stable. Patient will follow up with Dr. Christiansen as outpatient. SIGNIFICANT LABORATORIES: Iron 48, TIBC 225, ferritin 36.91. Creatinine 1.70, on admission was 2.16 . TESTS PENDING AT DISCHARGE: Pathology report from polypectomy. FINAL DIAGNOSES: 1. Lower gastrointestinal bleeding secondary to vascular ectasias, status post argon plasma coagulat ion. 2. Acute blood loss anemia. 3. Diabetes mellitus, type 2. 4. Chronic kidney disease, stage 4. 5. Hypertension. 6. Iron deficiency. Patient received 1 dose of IV Venofer. 7. Chronic diastolic heart failure. 8. Hypothyroidism. 9. History of vitamin B12 deficiency. 10. Gastroesophageal reflux disease. 11. Obesity with a BMI 30.6. Plan of care was discussed with the patient and the family at the bedside. They stated understanding .
== END 2018-02-23 12:03 | disposition home or self-care (01) | DRG 348 ==
LOC: ERS 17:15 → OBSVTOIN 20:07 → 2SW 20:07 → T4-A 02-21 08:41
PROVIDERS: ADMIT Hospitalist; ATTEND Hospitalist
PROC: 0W3P7ZZ Control Bleeding in Gastrointestinal Tract, Via Natural or Artificial Opening (ICD-10-PCS; principal; 2018-02-20)
PROC: 0DBL8ZZ Excision of Transverse Colon, Via Natural or Artificial Opening Endoscopic (ICD-10-PCS; 2018-02-20)
DX: K31.811 Angiodysplasia of stomach and duodenum with bleeding (principal); D62 Acute posthemorrhagic anemia; N18.4 Chronic kidney disease, stage 4 (severe); I13.0 Hypertensive heart and chronic kidney disease with heart failure and stage 1 through stage 4 chronic kidney disease, or unspecified chronic kidney disease; I50.32 Chronic diastolic (congestive) heart failure; D50.9 Iron deficiency anemia, unspecified; E53.8 Deficiency of other specified B group vitamins; E03.9 Hypothyroidism, unspecified; K21.9 Gastro-esophageal reflux disease without esophagitis; E66.9 Obesity, unspecified; Z68.30 Body mass index [BMI] 30.0-30.9, adult; E11.22 Type 2 diabetes mellitus with diabetic chronic kidney disease; F32.9 Major depressive disorder, single episode, unspecified; Z88.0 Allergy status to penicillin; Z88.8 Allergy status to other drugs, medicaments and biological substances; E11.65 Type 2 diabetes mellitus with hyperglycemia; Z79.4 Long term (current) use of insulin; E78.00 Pure hypercholesterolemia, unspecified; K57.30 Diverticulosis of large intestine without perforation or abscess without bleeding; D63.1 Anemia in chronic kidney disease
CPT/HCPCS: 36415; 36416; 80048; 80053; 82274; 82728; 83540; 83550; 85014; 85018; 85025; 85610; 85730; 86850; 86900; 86901; 86922; 88305; 99285; J1815; J2001; J2405; J2704; J2916; J7050

== ENCOUNTER 2018-04-05 14:11 | Observation (INO) | payer MEDICARE ==
[2018-04-05 14:54] LABS: #Basophils 0.1 thou/uL (0.0-0.2); #Eosinphils 0.1 thou/uL (0.0-0.7); #Lymphocytes 1.2 thou/uL (1.20-3.40); #Monocytes 0.6 thou/uL (0.11-0.59); #Neutrophils 2.7 thou/uL (1.40-6.50); %Basophils 1.2 % (0.0-1.0); %Eosinophils 2.5 % (0.0-10.0); %Lymphocytes 25.8 % (21.0-51.0); %Monocytes 12.6 % (0.0-10.0); %Neutrophils 57.9 % (42.0-75.0); Hemoglobin 10.7 g/dL (12.0-16.0); Mean Corpuscular Hemoglobin 28.8 pg (27.0-31.0); Mean Corpuscular Volume 90.1 fL (78.0-98.0); Mean Platelet Volume 7.8 fL (7.4-10.4); Platelet Count 251 thou/uL (130-400); RBC Distribution Width 13.5 % (11.5-14.5); White Blood Cell (WBC) Count 4.7 thou/uL (4.8-10.8)
[2018-04-05 15:15] LABS: ALT (SGPT) 20 U/L (8-55); AST (SGOT) 19 U/L (5-34); Albumin 3.9 g/dL (3.4-4.8); Alkaline Phosphatase 76 U/L (40-150); Anion Gap 15 mmol/L (10-20); BUN (Urea Nitrogen) 61 mg/dL (9.8-20.1); Bilirubin, Total 0.5 mg/dL (0.2-1.2); Calc. Creatinine Clearance 0 mL/min (70-130); Calcium 9.5 mg/dL (7.8-10.44); Carbon Dioxide 23 mmol/L (23-31); Chloride 108 mmol/L (98-107); Estimated GFR-MDRD 20; Globulin 2.7 g/dL (2.4-3.5); Glucose 109 mg/dL (83-110); Potassium 4.3 mmol/L (3.5-5.1); Protein, Total 6.6 g/dL (6.0-8.3); Sodium 142 mmol/L (136-145)
[2018-04-05 15:19] LABS: CKMB 6.1 ng/mL (0-6.6); Troponin I Less than 0.010 ng/mL (< 0.028)
--- NOTE | 2018-04-05 15:21 | RAD ---
CHEST 2 VIEWS: Date: 04/05/18 HISTORY: Shortness of breath. Patient gained 8 lbs in 2 days. COMPARISON: 11/27/17. FINDINGS: Normal cardiac silhouette. Pulmonary vessels are prominent. Interstitial opacities likely due to zehra a. Small bilateral effusions. No pneumothorax or osseous abnormalities. IMPRESSION: Congestive heart failure. POS: [facility]
[2018-04-05] MEDS ORDERED: Nitroglycerin 2% Ointment 1 INCH/1 GM Packet ONE (16:54)
[2018-04-05] MEDS ORDERED: Furosemide 100 MG/10 ML VIAL ONE (16:54)
[2018-04-05 18:34] LABS: Troponin I Less than 0.010 ng/mL (< 0.028)
[2018-04-05 21:46] LABS: Troponin I Less than 0.010 ng/mL (< 0.028)
[2018-04-05] MEDS ORDERED: Ondansetron ODT 4 MG TAB PO PRN (23:10)
[2018-04-05] MEDS ORDERED: Acetaminophen 325 MG TAB PO PRN (23:10)
[2018-04-05] MEDS ORDERED: Ondansetron HCl/PF 4 MG/2 ML Vial IVP PRN (23:10)
[2018-04-05] MEDS ORDERED: Enoxaparin Sodium 30 MG/0.3 ML SYRINGE SC SCH (23:10)
[2018-04-05] MEDS ORDERED: Acetaminophen 650 MG Suppository PR PRN (23:10)
[2018-04-05] MEDS ORDERED: Carvedilol 25 MG TAB PO SCH (23:45)
[2018-04-05] MEDS ORDERED: Insulin Glargine 10 UNITS in Pre-Filled Syringe 1 EACH SC SCH (23:45)
[2018-04-05] MEDS ORDERED: Gabapentin 400 MG CAP PO SCH (23:45)
[2018-04-05] MEDS ORDERED: Magnesium Oxide 250 MG TAB PO SCH (23:45)
[2018-04-05 23:53] LABS: Troponin I Less than 0.010 ng/mL (< 0.028)
[2018-04-06] MEDS: Carvedilol 25 MG TAB PO SCH ×3 (00:06→16:38)
[2018-04-06] MEDS: Gabapentin 400 MG CAP PO SCH ×2 (00:07→22:17)
[2018-04-06] MEDS: Magnesium Oxide 250 MG TAB PO SCH ×2 (00:07→22:18)
[2018-04-06 00:59] VITALS: BMI 33.0
[2018-04-06 05:50] LABS: #Eosinphils 0.1 thou/uL (0.0-0.7); #Lymphocytes 1.3 thou/uL (1.20-3.40); #Monocytes 0.5 thou/uL (0.11-0.59); #Neutrophils 2.3 thou/uL (1.40-6.50); %Basophils 0.5 % (0.0-1.0); %Lymphocytes 30.9 % (21.0-51.0); %Monocytes 11.3 % (0.0-10.0); %Neutrophils 54.3 % (42.0-75.0); Mean Corpuscular HGB CONC 33.1 g/dL (32.0-36.0); Mean Corpuscular Hemoglobin 29.2 pg (27.0-31.0); Mean Corpuscular Volume 88.3 fL (78.0-98.0); Mean Platelet Volume 7.4 fL (7.4-10.4); Platelet Count 255 thou/uL (130-400); RBC Distribution Width 13.6 % (11.5-14.5); Red Blood Cell (RBC) Count 3.42 mill/uL (4.20-5.40); White Blood Cell (WBC) Count 4.3 thou/uL (4.8-10.8)
[2018-04-06 06:09] LABS: Anion Gap 14 mmol/L (10-20); BUN (Urea Nitrogen) 60 mg/dL (9.8-20.1); Calc. Creatinine Clearance 33 mL/min (70-130); Calcium 9.1 mg/dL (7.8-10.44); Carbon Dioxide 26 mmol/L (23-31); Chloride 106 mmol/L (98-107); Estimated GFR-MDRD 23; Glucose 143 mg/dL (83-110); Magnesium 2.3 mg/dL (1.6-2.6); Potassium 3.6 mmol/L (3.5-5.1); Sodium 142 mmol/L (136-145)
[2018-04-06] MEDS: Levothyroxine Sodium 100 MCG TAB PO SCH (06:11)
[2018-04-06] MEDS: Furosemide 40 MG/4 ML VIAL SLOW IVP SCH ×2 (06:12→13:07)
[2018-04-06 07:30] LABS: CKMB 4.1 ng/mL (0-6.6); Troponin I Less than 0.010 ng/mL (< 0.028)
[2018-04-06] MEDS: Multivitamin W/ Minerals 1 TAB PO SCH (07:59)
[2018-04-06] MEDS: NIFEdipine XL 60 MG TAB PO SCH (07:59)
[2018-04-06] MEDS: Insulin Glargine 35 UNITS in Pre-Filled Syringe 1 EACH SC SCH (08:00)
[2018-04-06] MEDS: Enoxaparin Sodium 30 MG/0.3 ML SYRINGE SC SCH (08:00)
[2018-04-06] MEDS ORDERED: Famotidine 20 MG TAB PO SCH (09:00)
[2018-04-06] MEDS ORDERED: Metolazone 5 MG TAB PO SCH (09:45)
[2018-04-06] MEDS ORDERED: hydrALAZINE 20 MG/ML VIAL SLOW IVP PRN (11:25)
[2018-04-06] MEDS ORDERED: cloNIDine 0.1 MG TAB PO PRN (12:42)
--- NOTE | 2018-04-06 13:47 | PDOC.PN ---
- Subjective Encounter Start Date: 04/06/18 Encounter Start Time: 13:46 Subjective: feels a little better.breathing easier -: feeling overwhelmed w multiple admits & balance w renal vs heart failure -: no CP.had 8 lbs weight gain i 3 days,Meds not working - Objective Resuscitation Status: Resuscitation Status FULL:Full Resuscitation MAR Reviewed: Yes Vital Signs & Weight: Vital Signs (12 hours) Temp Pulse Resp BP BP Pulse Ox 04/06/18 13:07 186/73 H 04/06/18 12:25 186/73 H 04/06/18 11:49 65 04/06/18 11:08 98.4 F 67 16 211/81 H 92 L 04/06/18 08:00 98.4 F 65 16 04/06/18 07:59 65 164/71 H 04/06/18 07:29 97.5 F L 63 15 184/79 H 94 L 04/06/18 03:05 98.4 F 65 16 164/71 H 92 L Weight Weight 192 lb 12.8 oz I&O: 04/05/18 04/06/18 04/07/18 06:59 06:59 06:59 Intake Total 300 Output Total 900 1000 Balance -600 -1000 Result Diagrams: 04/06/18 05:12 04/06/18 05:12 Additional Labs: Accuchecks 04/06/18 04/06/18 06:11 00:04 POC Glucose 125 H 82 Laboratory Tests 03/19/18 03/20/18 03/21/18 10:47 04:20 03:45 Creatinine 2.18 H 1.94 H Troponin I B-Natriuretic Peptide 166.0 H 04/05/18 04/05/18 04/05/18 14:46 14:46 14:46 Creatinine 2.39 H Troponin I Less than 0.010 B-Natriuretic Peptide 170.3 H 04/05/18 04/05/18 04/05/18 17:57 21:16 23:21 Creatinine Troponin I Less than 0.010 Less than 0.010 Less than 0.010 B-Natriuretic Peptide 04/06/18 04/06/18 05:12 05:12 Creatinine 2.14 H Troponin I Less than 0.010 B-Natriuretic Peptide labs reviewed Phys Exam - Physical Examination Constitutional: NAD tearful HEENT: PERRLA, moist MMs, sclera anicteric, oral pharynx no lesions Neck: no nodes, no JVD, supple, full ROM Respiratory: no wheezing, no rhonchi few bibasilar crackles Cardiovascular: RRR, no significant murmur Gastrointestinal: soft, non-tender, no distention, positive bowel sounds Musculoskeletal: pulses present, edema present Neurological: non-focal, normal sensation, moves all 4 limbs Psychiatric: normal affect, A&O x 3 Skin: no rash Dx/Plan (1) Acute diastolic CHF (congestive heart failure) Code(s): I50.31 - ACUTE DIASTOLIC (CONGESTIVE) HEART FAILURE Status: Acute (2) Acute on chronic kidney failure Code(s): N17.9 - ACUTE KIDNEY FAILURE, UNSPECIFIED; N18.9 - CHRONIC KIDNEY DISEASE, UNSPECIFIED Status: Acute Qualifiers: Acute renal failure type: unspecified Chronic kidney disease stage: stage 4 (severe) Qualified Code(s): N17.9 - Acute kidney failure, unspecified; N18.4 - Chronic kidney disease, stage 4 (severe); N18.4 - Chronic kidney disease , stage 4 (severe); N18.4 - Chronic kidney disease, stage 4 (severe); N18.4 - Chronic kidney disease, stage 4 (severe) Comment: will follow up with nephros recs. (3) Malignant hypertension Code(s): I10 - ESSENTIAL (PRIMARY) HYPERTENSION Status: Acute (4) Chronic kidney disease, stage 4 (severe) Code(s): N18.4 - CHRONIC KIDNEY DISEASE, STAGE 4 (SEVERE) Status: Chronic (5) DM2 (diabetes mellitus, type 2) Status: Chronic Qualifiers: Chronic kidney disease stage: stage 4 (severe) (6) GERD (gastroesophageal reflux disease) Code(s): K21.9 - GASTRO-ESOPHAGEAL REFLUX DISEASE WITHOUT ESOPHAGITIS Status: Chronic Qualifiers: Esophagitis presence: without esophagitis Qualified Code(s): K21.9 - Gastro -esophageal reflux disease without esophagitis Comment: stable (7) Hyperlipidemia Code(s): E78.5 - HYPERLIPIDEMIA, UNSPECIFIED Status: Chronic Qualifiers: Hyperlipidemia type: unspecified Qualified Code(s): E78.5 - Hyperlipidemia , unspecified (8) Hypothyroidism Code(s): E03.9 - HYPOTHYROIDISM, UNSPECIFIED Status: Chronic Qualifiers: Hypothyroidism type: acquired Qualified Code(s): E03.9 - Hypothyroidism, unspecified Comment: stable - Plan plan discussed w/ family, DVT proph w/SCDs will try 1 dose zaroxolyn w close monitroing of renal failure -: pt w multiple admits w either HF or KRISTY.will consult palliative team -: will request consult w cardiology & Nephro to reach a good dose of diuresis -: Pt overwhelmed trying to do fluid restriction/meds & still having symptoms -: Add prn antihypertensives.monitor.add NANCY-I when renal Fx improves * .care discussed w Son Gerber on phone and at bedside * am labs Review of Systems - Review of Systems Constitutional: weakness, malaise. negative: fever, chills, sweats, other ENT: negative: Ear Pain, Ear Discharge, Nose Pain, Nose Discharge, Nose Congestion, Mouth Pain, Mouth Swelling, Throat Pain, Throat Swelling, Other Respiratory: Shortness of Breath, SOB with Excertion. negative: Cough, Dry, Hemoptysis, Pleuritic Pain, Sputum, Wheezing Cardiovascular: orthopnea. negative: chest pain, palpitations, paroxysmal nocturnal dyspnea, edema, light headedness, other Gastrointestinal: negative: Nausea, Vomiting, Abdominal Pain, Diarrhea, Constipation, Melena, Hematochezia, Other Genitourinary: negative: Dysuria, Frequency, Incontinence, Hematuria, Retention , Other Musculoskeletal: negative: Neck Pain, Shoulder Pain, Arm Pain, Back Pain, Hand Pain, Leg Pain, Foot Pain, Other Skin: negative: Rash, Lesions, Fabian, Bruising, Other Neurological: negative: Weakness, Numbness, Incoordination, Change in Speech, Confusion, Seizures, Other - Medications/Allergies Allergies/Adverse Reactions: Allergies Allergy/AdvReac Type Severity Reaction Status Date / Time Penicillins Allergy Severe Verified 04/06/18 00:50 cyclobenzaprine HCl AdvReac Verified 04/06/18 00:50 [From Flexeril] Medications: Current Medications Acetaminophen (Tylenol) 650 mg PO Q4H PRN PRN Reason: Headache/Fever or Pain Acetaminophen (Tylenol) 650 mg [place] Q4H PRN PRN Reason: Headache/Fever or Pain Carvedilol (Coreg) 25 mg PO 0900,1800 [facility] Last Admin: 04/06/18 07:59 Dose: 25 mg Clonidine (Catapres) 0.1 mg PO Q4H PRN PRN Reason: SBP GREATER THAN 160 Last Admin: 04/06/18 13:07 Dose: 0.1 mg Enoxaparin Sodium (Lovenox) 30 mg SC 0900 [facility] Last Admin: 04/06/18 08:00 Dose: 30 mg Famotidine (Pepcid) 20 mg PO DAILY [facility] Last Admin: 04/06/18 07:59 Dose: 20 mg Furosemide (Lasix) 40 mg SLOW IVP 0600,1400 [facility] Last Admin: 04/06/18 13:07 Dose: 40 mg Gabapentin (Neurontin) 1,200 mg PO QPM [facility] Last Admin: 04/06/18 00:07 Dose: Not Given Hydralazine HCl (Apresoline) 10 mg SLOW IVP Q4H PRN PRN Reason: SBP Greater Than 170 Last Admin: 04/06/18 11:49 Dose: 10 mg Insulin Glargine 10 units/ (Miscellaneous Medication) 0.1 mls @ 0 mls/hr SC [facility] Insulin Glargine 35 units/ (Miscellaneous Medication) 0.35 mls @ 0 mls/hr [facility] Last Admin: 04/06/18 08:00 Dose: 0.35 mls Iron/Minerals/Multivitamins (Theragran M) 1 tab PO DAILY [facility] Last Admin: 04/06/18 07:59 Dose: 1 tab Levothyroxine Sodium (Synthroid) 100 mcg PO 0600 [facility] Last Admin: 04/06/18 06:11 Dose: 100 mcg Magnesium Oxide (Magnesium Oxide) 250 mg PO HS [facility] Last Admin: 04/06/18 00:07 Dose: Not Given Nifedipine (Procardia Xl) 60 mg PO DAILY [facility] Last Admin: 04/06/18 07:59 Dose: 60 mg Ondansetron HCl (Zofran Odt) 4 mg PO Q6H PRN PRN Reason: Nausea/Vomiting Ondansetron HCl (Zofran) 4 mg IVP Q6H PRN PRN Reason: Nausea/Vomiting Pantoprazole Sodium (Protonix) 40 mg PO DAILY [facility] Last Admin: 04/06/18 07:59 Dose: 40 mg
--- NOTE | 2018-04-06 18:36 | CON ---
DATE OF CONSULTATION: 04/06/2018 REASON FOR CONSULTATION: Shortness of breath. 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 Radha Lockhart on 03/26/2018 in the office. She states she recently presented wi th an 8-pound weight gain over the last day. She complained of shortness of breath in addition to he r lower extremity edema. Last echo dated 11/24/2017 showed LVEF 55%-60% with moderately elevated pul monary pressures and moderate TR. She does have mild concentric LVH and likely diastolic dysfunction . No chest pain or pressure noted. PAST MEDICAL HISTORY: Hypothyroidism; diabetes mellitus; renal disease; thyroid disease; acid reflux ; chronic kidney disease, stage 4. PAST SURGICAL HISTORY: Hysterectomy, appendectomy, cholecystectomy, thyroidectomy, and shoulder surg megan. ALLERGIES: PENICILLIN. CURRENT MEDICATIONS: Include Lantus, Flovent, fish oil, iron, omeprazole, carvedilol, vitamin D3, bi otin, nifedipine, magnesium, gabapentin, levothyroxine, clonidine, hydralazine, and torsemide. REVIEW OF SYSTEMS: Ten-point review of systems was reviewed and as above, otherwise negative. PHYSICAL EXAMINATION: GENERAL: The patient is a pleasant female who is in no acute distress. The patient appears her stat ed age. VITAL SIGNS: Blood pressure 136/63, pulse 65, temperature 98.3. NEUROLOGIC: The patient is alert and oriented times 3 with no focal neurologic deficits. HEENT: Sclerae without icterus. Mouth has moist mucous membranes with normal pallor. NECK: No JVD. Carotid upstroke brisk. No bruits bilaterally. LUNGS: Crackles noted bilaterally. BACK: No scoliosis or kyphosis. CARDIAC: Regular rate and rhythm with normal S1 and S2. No S3 or S4 noted. No significant rubs, murmurs, thrills, or gallops noted throughout the precordium. PMI is not displaced. There is no parasternal heave. ABDOMEN: Soft, nontender, nondistended. No peritoneal signs present. No hepatosplenomegaly. No abnormal striae. EXTREMITIES: 2+ femoral and 2+ dorsalis pedis pulses. No cyanosis, clubbing, or edema. SKIN: No gross abnormalities. LABORATORY DATA: Hemoglobin 10, creatinine 2.1, BUN 60, GFR 23. IMPRESSION: 1. Likely acute diastolic heart failure. 2. Chronic kidney disease. RECOMMENDATIONS: IV Lasix versus p.o. torsemide. 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 Blood pressure upon arrival was 211/81 and we will need more aggressive blood pressure management. May also consider underlying renal disease in addition to sleep apnea. Further recommen dations per Dr. Radha Lockhart in a.m.
--- NOTE | 2018-04-06 20:41 | PRG ---
DATE OF SERVICE: 04/06/2018 SUBJECTIVE: Ms. Canales is a 72-year-old white female with known history of chronic renal failure who was admitted for shortness of breath. She has been gaining weight and for that reason, the cardiolo gist was adjusting her diuretics. In spite of the adjustment of her diuretics, her shortness of jett th seemed to have worsened. She is now admitted for further management. We are now being consulted for her chronic renal failure. I did look at the creatinine today, it is 2.14. This is slightly abo ve her baseline. Please note she was, prior to admission on torsemide 20 mg tab once a day. REVIEW OF SYSTEMS: Positive for shortness of breath, no nausea, no vomiting, no diarrhea, no constip ation, no chest pain, no syncopal episode, no productive cough, no fever or chills, no diarrhea, no c onstipation, no gross hematuria, no dysuria, no urinary frequency, no abdominal pain, no headache, no syncopal episode, no productive cough, no dysuria. Appetite and energy level is fair. MEDICATIONS: Coreg 25 mg p.o. b.i.d., Catapres 0.1 mg q.4. p.r.n., Lovenox 30 mg subQ every day, fur osemide 40 mg IV q.12 hours, Neurontin 1200 mg q.p.m., hydralazine 10 mg IV q.4 hours p.r.n., insulin glargine 35 units subQ q.a.m. and 10 units subQ q.p.m., Synthroid 100 mcg every day, nifedipine 60 m g once a day, Zofran 4 mg IV q.6 hours p.r.n., Protonix 40 mg tab once a day. PAST MEDICAL HISTORY: 1. Chronic renal failure from diabetic nephropathy. 2. Type 2 diabetes mellitus. 3. History of congestive heart failure. 4. Hypothyroidism status post gastrointestinal bleed from AV malformation, longstanding hypertension . PAST SURGICAL HISTORY: 1. Status post hysterectomy. 2. Status post cholecystectomy. 3. Status post right shoulder surgery. 4. Status post appendectomy. 5. Status post colonoscopy with laser ablation of AV malformation. ALLERGIES: PENICILLIN and FLEXERIL. TRAUMA: None. IMMUNIZATIONS: Up to date. HOSPITALIZATION: Please see past medical history. SOCIAL HISTORY: The patient lives in [place], , 2 children. Sedentary lifestyle. Currently, no IV drug use, no smoking, no alcohol intake. FAMILY HISTORY: No family history of ESRD. PHYSICAL EXAMINATION: VITAL SIGNS: Blood pressure is 136/63, heart rate 65, respiratory rate 16, temperature 98.3, pulse o x 93%. GENERAL: Patient is awake, alert, comfortable, not in overt distress SKIN: Adequate turgor. HEENT: Pinkish conjunctivae, anicteric sclerae. NECK: No neck mass, no carotid bruits, no JVD. CHEST: No deformities. LUNGS: Decreased breath sounds. HEART: Normal sinus rhythm. No murmur, no gallops, no rubs. ABDOMEN: Globular, soft, nontender, no masses. EXTREMITIES: No edema, no deformities. LABORATORY DATA: Chemistry is sodium of 142, potassium 3.6, chloride 106, carbon dioxide 26, BUN 60, creatinine 2.14, glucose 143, calcium 9.1, magnesium 2.3. On 04/05/2018, BUN 61, creatinine 2.39. On 03/21/2018, BUN 40, creatinine 1.94. IMAGING: Chest x-ray shows CHF. ASSESSMENT AND PLAN: 1. Acute kidney injury on top of her chronic renal failure slightly higher creatinine -- this may be prerenal secondary to her congestive heart failure. She will continue her current diuretic regimen. She is on Lasix 40 mg IV q.12 hours. I have not excluded and the possibility of at least placing t his patient on other diuretic -- metolazone 5 mg tab every week to 2 times a week if needed. All we need to do is carefully monitor renal function to make it remain acceptable. 2. Congestive heart failure and diastolic -- currently on IV Lasix. Much improved from a CHF point of view. As previously mentioned, consider adding metolazone 5 mg tab once a week with careful monit oring of the renal function. There is no indication for any dialytic intervention.
[2018-04-06] MEDS ORDERED: Insulin Glargine 10 UNITS in Pre-Filled Syringe 1 EACH SC SCH (21:00)
--- NOTE | 2018-04-06 23:35 | HP ---
PRIMARY CARE PHYSICIAN: Shane Gutierrez M.D. DATE OF ADMISSION: 04/05/2018 TIME OF SERVICE: 1900 hours. CHIEF COMPLAINT: Shortness of breath. HISTORY OF PRESENT ILLNESS: Ms. Canales is a pleasant 72-year-old female with a history of chronic di astolic congestive heart failure and what she describes as now four admissions this year for heart fa ilure exacerbation. She normally sees Dr. Lockhart at the [facility], but has not been enrolled in the CHF Clinic for unknown reasons. She subsequently last was admitted here from for simil ar circumstance. The patient describes a 3-day history of increasing weight and edema that she has a total around 8 po unds. She continued to take her medicines as prescribed, recently switched from furosemide to torsem alicia. No metolazone was added. She decided to come to the Emergency Department for evaluation. Here, she was found to be in mild CHF exacerbation, she was given IV Lasix and entered nitro paste an d we were called for admission. She denies any fever or chills, no chest pain. She does have some orthopnea and dyspnea on exertion. No PND. She has not been nonadherent with her medications. Since getting the Lasix in the ER, she has had a voluminous urine output and is breathing better. PAST MEDICAL HISTORY: 1. Essential hypertension. 2. Chronic kidney disease stage 4, followed by Dr. Ta. 3. Chronic diastolic congestive heart failure. 4. Hypothyroidism. 5. Gastroesophageal reflux disease. 6. AV malformation with gastrointestinal bleed. 7. Vitamin B12 deficiency. 8. Diabetes mellitus type 2, insulin-dependent. PAST SURGICAL HISTORY: 1. Right shoulder surgery. 2. Colonoscopy and laser ablation of AV malformation remotely. 3. Appendectomy remotely. 4. Thyroidectomy. 5. Hysterectomy. 6. Cholecystectomy. HOME MEDICATIONS: 1. Biotin 10,000 mcg daily. 2. Coreg 25 mg p.o. b.i.d. 3. Vitamin D3 at 1000 units daily. 4. Vitamin B12 at 500 mcg intramuscularly every 4 weeks. 5. Iron sulfate 325 mg p.o. b.i.d. 6. Fish oil 1200 mg b.i.d. 7. Ciprofloxacin recently prescribed, has been completed. 8. Lasix 20 mg daily, recently changed to torsemide, unknown dose. 9. Neurontin 1200 mg p.o. q.p.m. 10. Lantus 35 units subcu q.a.m., 10 units subcu q.p.m. 11. Levothyroxine 100 mcg daily. 12. Magnesium 250 mg p.o. at bedtime. 13. Multivitamin daily. 14. Procardia-XL 60 mg daily. 15. Omeprazole 20 mg daily. ALLERGIES: PENICILLIN causes a rash and swelling and CYCLOBENZAPRINE makes her goofy. FAMILY HISTORY: Negative for clotting or bleeding disorder. No immune dysfunction. SOCIAL HISTORY: Negative for habits x3. She is monogamous. Her accompanies her. REVIEW OF SYSTEMS: All systems reviewed and negative except stated as per HPI. PHYSICAL EXAMINATION: VITAL SIGNS: Temperature on admission 98.7, pulse 65, blood pressure 153/67, respiratory rate 16, sa t 93% on room air. GENERAL: She is awake, alert, and oriented x3. She is an obese white female, appears to be in no ac meir distress. HEENT: Normocephalic, atraumatic. Pupils equal, round, reactive to light bilaterally, mucous membra ne moist. She has no visible lesions no thrush. She has a normal carotid upstroke. There are no br uits. LUNGS: Have faint bibasilar crackles. She has good air movement without prolonged expiratory phase. No wheezes, no rales, no rhonchi. CARDIOVASCULAR: She has normal S1 and S2. She has a faint S4, but no S3. She has no audible murmur s. She has normal cardiac. ABDOMEN: Obese, it is nontender. She has no hepatosplenomegaly that I can palpate. She has no rebo und, rigidity or guarding. She has normoactive bowel sounds present in all 4 quadrants. EXTREMITIES: Her extremities show no cyanosis, no clubbing with 1+ peripheral edema in the lower ext remities. She has a barely palpable dorsalis pedis, posterior tibial arteries bilaterally. SKIN: Warm, moist, and well perfused. She has no other rashes or lesions. MUSCULOSKELETAL: Normal to inspection. Large joints appear normal. There is no evidence of inflamm ation or palpable effusions. NEUROLOGIC: Cranial nerves II-XII are grossly intact without any focal neurologic deficits. LABORATORY DATA: CBC showed a white count of 4.7, hemoglobin is 10.7, hematocrit of 33.4, platelet c ount is 251,000 with a normal differential. Chemistries reveal a sodium 142, potassium 4.3, chloride 108, bicarbonate 23, BUN 61, creatinine 2.39 , which is around her baseline. Her glucose 109, calcium 9.5. Liver function within normal limits. BNP barely elevated at 170.3. Total CK was 206, CK-MB was normal at 6.1. Troponin I was undetectab le less than 0.010. Radiographic studies in the Emergency Department included portable chest x-ray showed signs of conges tive heart failure. ASSESSMENT AND PLAN: 1. Acute on chronic diastolic congestive heart failure, patient recently changed from Lasix to torse mide. We will convert her to IV Lasix now and we will schedule her 40 mg IV q.12 hours. I will get strict I's and O's, daily weights, and we will need Cardiology outpatient Heart Failure Clinic referr al. I notified Dr. Lockhart of her admission. 2. Hypertension, essential. Continue home medications. She is on beta samantha. She is not on NANCY inhibitor due to chronic renal disease. 3. Diabetes mellitus type 2, insulin-dependent, q.i.d. Accu-Cheks, we will continue her Lantus and a heart healthy diabetic diet. 4. Hypothyroidism, on levothyroxine. We will continue. 5. Hypomagnesemia, chronic on replacement. We will continue. 6. Hypertension, essential on nifedipine, carvedilol, which will continue.
[2018-04-07 05:15] LABS: Anion Gap 16 mmol/L (10-20); BUN (Urea Nitrogen) 59 mg/dL (9.8-20.1); Calc. Creatinine Clearance 31 mL/min (70-130); Calcium 9.3 mg/dL (7.8-10.44); Carbon Dioxide 26 mmol/L (23-31); Chloride 105 mmol/L (98-107); Estimated GFR-MDRD 22; Glucose 96 mg/dL (83-110); Potassium 3.5 mmol/L (3.5-5.1); Sodium 143 mmol/L (136-145)
[2018-04-07] MEDS: Furosemide 40 MG/4 ML VIAL SLOW IVP SCH (05:40)
[2018-04-07] MEDS: Levothyroxine Sodium 100 MCG TAB PO SCH (05:40)
--- NOTE | 2018-04-07 09:23 | PRG ---
DATE OF SERVICE: 04/07/2018 SERVICE: Renal Medicine. SUBJECTIVE: Ms. Canales is a 72-year-old white female with chronic renal failure, who was admitted fo r CHF. She was given IV diuresis and it improved her CHF. We saw the patient for her acute kidney i njury on top of her chronic renal failure. Creatinine on admission was noted at 2.21, and currently remains about the same. She seems to be tolerating the current diuretic regimen. No other complaint s today. Breathing is stable. I would probably resume back on the same diuretic regimen on discharg e. She will follow up with me at the outpatient Renal Clinic. OBJECTIVE: VITAL SIGNS: Blood pressure 161/67, heart rate 68, respiratory rate 16, temperature 97.8, pulse ox 9 4%. GENERAL EXAM: Patient is awake, alert, comfortable. SKIN: Adequate turgor. HEENT: Pinkish conjunctivae. Anicteric sclerae. LUNGS: Decreased breath sounds. HEART: Normal sinus rhythm. No murmur, no gallops, no rubs. ABDOMEN: Globular, soft. EXTREMITIES: No edema. Medications of 04/07/2018 reviewed. LABORATORY DATA: Laboratories of 04/06/2018, glucose 283, BUN 60, creatinine 2.14. 04/07/2018, BUN 59, creatinine 2.21. ASSESSMENT AND PLAN: 1. Acute kidney injury on top of chronic renal failure. Anticipated worsening renal function second jayne to IV diuresis. My bias is to resume her back on a p.o. diuretic regimen. There is no indicatio n for any dialytic intervention. I will see this patient 1 week after discharge. If the renal funct ion will stabilize, we could consider adding metolazone 5 mg tab once a week with this patient. 2. Congestive heart failure - clinically much improved with IV diuresis. Please note that the high creatinine may all be hemodynamically-mediated renal dysfunction on top of her chronic renal failure. Long counseling was done regarding her salt intake.
[2018-04-07] MEDS: Carvedilol 25 MG TAB PO SCH (09:31)
[2018-04-07] MEDS: Enoxaparin Sodium 30 MG/0.3 ML SYRINGE SC SCH (09:32)
[2018-04-07] MEDS: Insulin Glargine 35 UNITS in Pre-Filled Syringe 1 EACH SC SCH (09:33)
[2018-04-07] MEDS: Multivitamin W/ Minerals 1 TAB PO SCH (09:34)
[2018-04-07] MEDS: NIFEdipine XL 60 MG TAB PO SCH (09:34)
--- NOTE | 2018-04-07 09:34 | DIS ---
PRIMARY CARE PROVIDER: Dr. Nanette Gutierrez PRIMARY CARE PROVIDER: Dr. Ta. FINAL DIAGNOSES: 1. Acute on chronic diastolic heart failure. 2. Chronic kidney disease stage 4. 3. Pulmonary hypertension. 4. Essential hypertension. 5. Diabetes mellitus, insulin-dependent type 2. 6. Hypothyroidism. DISCHARGE MEDICATIONS: Torsemide 20 mg a day, ferrous sulfate 325 mg twice a day, Coreg 25 mg twice a day, omeprazole 20 mg a day, nifedipine 60 mg a day, levothyroxine 100 mcg a day, insulin Lantus 35 units subcu daily in the morning, 11 units in the evening, Neurontin 1200 mg p.o. in the evening. ALLERGIES: PENICILLIN, CYCLOBENZAPRINE. CODE STATUS: FULL. DIET: Diabetic with no added salt, specifically no alberts. HOSPITAL COURSE: The patient admitted with 8 pound gain in 3 days. She was found to have exacerbati on of her CHF. She was given IV Lasix. She was seen in consultation by Dr. Enoc Sarmiento for Dr Dakota Lockhart. She was seen by Dr. Ta. Her weight has dropped from 192 to 186 with IV Lasix. Her chest is clear. Heart; regular rate and rhythm. Vital signs are stable. She is ready to go home. She a nd I had a protracted discussion of her increased weight. The patient eats alberts daily in the [facility]. She was very resistant to the idea that eating alberts was causing any of her problem. Dr. Ta kate mee us during the conversation. She was in tears over this as I left the room stating that because o f her heart failure and her diabetes there was nothing she could eat. PROCEDURES: None. PERTINENT LABORATORY: Creatinine 2.39, BUN 61 on admission, electrolytes were otherwise normal. Cre atinine 2.14, BUN 60 on discharge. Cardiac enzymes normal. CBC showed a hemoglobin of 10.7 and 10.0 consistent with chronic kidney disease. She is to see Dr. Ta in follow up.
--- NOTE | 2018-04-07 11:10 | PRG ---
DATE OF SERVICE: 04/07/2018 SUBJECTIVE: Ms. Canales is feeling better today, no chest pain or pressure. Her breathing is improved. PHYSICAL EXAMINATION: VITAL SIGNS: Blood pressure 160/67, pulse 68, regular. LUNGS: Clear. CARDIAC: Normal S1, normal S2. ABDOMEN: Soft, nontender. EXTREMITIES: No edema. ASSESSMENT: 1. Diastolic heart failure, acute on chronic, improved. 2. Stage IV renal failure, estimated GFR is 22. 3. Diabetes. PLAN: Increase torsemide to 40 mg a day each day in the evening. Other medicines are unchanged. I will see her in the office in a couple of weeks. She also plans to follow up in the Heart Failure Cl in in case intravenous Lasix is needed.
[2018-04-07 11:20] VITALS: BP 162/70; TEMP 98.2
== END 2018-04-07 13:00 | disposition home or self-care (01) ==
LOC: ERS 14:11 → 2SW 22:28
PROVIDERS: ADMIT Internal Medicine Infectious Disease; ATTEND Internal Medicine Infectious Disease
DX: I13.0 Hypertensive heart and chronic kidney disease with heart failure and stage 1 through stage 4 chronic kidney disease, or unspecified chronic kidney disease (principal); E11.22 Type 2 diabetes mellitus with diabetic chronic kidney disease; N18.4 Chronic kidney disease, stage 4 (severe); I50.33 Acute on chronic diastolic (congestive) heart failure; N17.9 Acute kidney failure, unspecified; K21.9 Gastro-esophageal reflux disease without esophagitis; E53.8 Deficiency of other specified B group vitamins; E89.0 Postprocedural hypothyroidism; E83.42 Hypomagnesemia; E11.21 Type 2 diabetes mellitus with diabetic nephropathy; Z79.4 Long term (current) use of insulin; Z79.899 Other long term (current) drug therapy; Z88.0 Allergy status to penicillin; Z88.8 Allergy status to other drugs, medicaments and biological substances; Z98.890 Other specified postprocedural states
CPT/HCPCS: 71046; 80048 ×2; 80053; 82550; 82553 ×3; 82962 ×2; 83735; 83880; 84484 ×3; 85025 ×2; 93005; 96372 ×2; 96374; 96375; 96376 ×2; 97139 ×2; 99285; G0378 ×2; 36415; 36416; J1650; J1940

== ENCOUNTER 2018-07-06 19:12 | Observation (INO) | payer MEDICARE ==
[2018-07-06 20:30] LABS: #Eosinphils 0.1 thou/uL (0.0-0.7); #Lymphocytes 1.6 thou/uL (1.20-3.40); #Monocytes 0.5 thou/uL (0.11-0.59); #Neutrophils 3.6 thou/uL (1.40-6.50); %Basophils 0.8 % (0.0-1.0); %Eosinophils 2.5 % (0.0-10.0); %Lymphocytes 26.9 % (21.0-51.0); %Monocytes 8.8 % (0.0-10.0); Hemoglobin 12.9 g/dL (12.0-16.0); Mean Corpuscular HGB CONC 33.7 g/dL (32.0-36.0); Mean Corpuscular Hemoglobin 28.9 pg (27.0-31.0); Mean Corpuscular Volume 85.6 fL (78.0-98.0); Mean Platelet Volume 8.2 fL (7.4-10.4); Platelet Count 232 thou/uL (130-400); RBC Distribution Width 13.7 % (11.5-14.5); Red Blood Cell (RBC) Count 4.46 mill/uL (4.20-5.40); White Blood Cell (WBC) Count 5.9 thou/uL (4.8-10.8)
--- NOTE | 2018-07-06 20:48 | CT ---
HEAD CT NONCONTRAST: 07/06/18 INDICATIONS: Altered mental status. Reference made 11/20/17 exam. FINDINGS: There is stable size of ventricular system. Mild chronic ischemic disease is present. There is no acu te intracranial hemorrhage, mass effect or midline shift. Previously noted pontine infarction is stab le, as are small remote cavitary infarctions of the bilateral basal ganglia. IMPRESSION: No acute intracranial hemorrhage or mass effect. POS: GREG
[2018-07-06 20:49] LABS: ALT (SGPT) 23 U/L (8-55); AST (SGOT) 23 U/L (5-34); Albumin 3.8 g/dL (3.4-4.8); Alkaline Phosphatase 106 U/L (40-150); Anion Gap 14 mmol/L (10-20); BUN (Urea Nitrogen) 37 mg/dL (9.8-20.1); Bilirubin, Total 0.6 mg/dL (0.2-1.2); CK (CPK) 253 U/L (29-168); Calc. Creatinine Clearance 0 mL/min (70-130); Calcium 9.7 mg/dL (7.8-10.44); Carbon Dioxide 27 mmol/L (23-31); Chloride 103 mmol/L (98-107); Estimated GFR-MDRD 21; Glucose 271 mg/dL (83-110); Potassium 4.7 mmol/L (3.5-5.1); Protein, Total 6.8 g/dL (6.0-8.3); Sodium 139 mmol/L (136-145)
[2018-07-06 20:54] LABS: Troponin I 0.012 ng/mL (< 0.028)
[2018-07-06 21:01] LABS: CKMB 7.1 ng/mL (0-6.6)
[2018-07-06] MEDS ORDERED: hydrALAZINE 20 MG/ML VIAL ONE (21:43)
[2018-07-06] MEDS ORDERED: Acetaminophen 325 MG TAB PO PRN (21:47)
[2018-07-06] MEDS ORDERED: Nitroglycerin 0.4 MG TAB (25 Tab Bottle) ONE (23:03)
[2018-07-06] MEDS ORDERED: ALPRAZolam 0.25 MG TAB ONE (23:06)
[2018-07-07 02:20] LABS: #Eosinphils 0.2 thou/uL (0.0-0.7); #Lymphocytes 2.1 thou/uL (1.20-3.40); #Monocytes 0.6 thou/uL (0.11-0.59); #Neutrophils 2.9 thou/uL (1.40-6.50); %Basophils 0.5 % (0.0-1.0); %Eosinophils 2.8 % (0.0-10.0); %Lymphocytes 36.1 % (21.0-51.0); %Monocytes 9.7 % (0.0-10.0); %Neutrophils 50.9 % (42.0-75.0); Hemoglobin 12.2 g/dL (12.0-16.0); Mean Corpuscular HGB CONC 33.3 g/dL (32.0-36.0); Mean Corpuscular Hemoglobin 28.8 pg (27.0-31.0); Mean Corpuscular Volume 86.3 fL (78.0-98.0); Platelet Count 210 thou/uL (130-400); RBC Distribution Width 13.8 % (11.5-14.5); Red Blood Cell (RBC) Count 4.24 mill/uL (4.20-5.40); White Blood Cell (WBC) Count 5.8 thou/uL (4.8-10.8)
[2018-07-07 02:50] LABS: Anion Gap 14 mmol/L (10-20); BUN (Urea Nitrogen) 34 mg/dL (9.8-20.1); Calc. Creatinine Clearance 0 mL/min (70-130); Calcium 8.6 mg/dL (7.8-10.44); Carbon Dioxide 25 mmol/L (23-31); Chloride 106 mmol/L (98-107); Estimated GFR-MDRD 24; Glucose 185 mg/dL (83-110); Potassium 3.9 mmol/L (3.5-5.1); Sodium 141 mmol/L (136-145)
--- NOTE | 2018-07-07 03:38 | HP ---
CHIEF COMPLAINT: Very emotional and confusion. HISTORY OF PRESENT ILLNESS: Patient is a 73-year-old female with a past medical history of diastolic heart failure, CKD, pulmonary hypertension, hypothyroidism, vascular ectasia, who presents to the hospital after some confusion. Patient's who was at the bedside states that patient has been having some acute intermittent confusion going on for the past few months. He especially concerned symptoms, she gets very emotional and starts crying over every little things including the fires that are going on in [place] and about just every little thing that she can think of. Patient also has been forgetting to take her afternoon and sometimes her night medications. Patient was noted in the ER to have a very high blood pressure in the 200 systolic over 100 diastolic. At this time, she was admitted to the hospital for further evaluation. There were some concerns by the ER physician for possible stroke, rule out stroke, TIA workup was also initiated. Patient in the ED underwent a CT head, which indicated that patient had some old mild chronic ischemic disease , but there was no acute stroke that was noted and she did have a previously noted pontine infarct and a small remote cavitary infarct in the bilateral basal ganglia also. PAST MEDICAL HISTORY: Patient has a history of diastolic heart failure. She has a history of chronic kidney disease, stage 4. [address] Ta, has a history of hypothyroidism, GERD. She has AV malformations with gastrointestinal bleed. She has vitamin B12 deficiency and diabetes type 2, insulin-dependent. PAST SURGICAL HISTORY: She has had a right shoulder surgery, colonoscopy with laser ablation of the right AV malformation, appendectomy, thyroidectomy, hysterectomy, cholecystectomy. MEDICATIONS: She takes Coreg 25 mg b.i.d. She takes Neurontin 1200 mg q.p.m., levothyroxine 150 daily, magnesium 250 daily, multivitamin daily, Procardia 60 mg daily, omeprazole 20 mg daily, Lantus 35 units q.a.m. and 10 units q.p.m., and Neurontin 1200 mg p.o. q.a.m. ALLERGIES: She is allergic to PENICILLIN causes rash and swelling and CYCLOBENZAPRINE makes her goofy. FAMILY HISTORY: Negative for clotting disease, heart disease, or any immune issues. SOCIAL HISTORY: She does not drink, smoke, or any recreational drug use. She lives with her . She is currently a FULL CODE. REVIEW OF SYSTEMS: All negative, except for the ones mentioned above in the HPI. PHYSICAL EXAMINATION: VITAL SIGNS: As of the following, temperature of 98.8, 64 heart rate, 162/70, 18, 94% on room air. GENERAL: She is awake, alert, oriented x3, does not appear in any distress; however, she is overly emotional. CARDIOVASCULAR: S1, S2 present. No murmurs, rubs, or gallops. LUNGS: Clear to auscultation, rhonchi, or wheezes noted. ABDOMEN: Soft, nontender. Bowel sounds present x2. EXTREMITIES: No edema. Pedal pulses present x2. NEUROLOGIC: She is awake, alert, oriented x3. No focal deficits noted. Her short-term memory is very poor. Since I asked her, if she could remember three things, she was unable to recall it in 3 minutes and in 5 minutes. SKIN: No cuts, lesions, or bruises noted. LABORATORY DATA: Are as of the following: WBCs of 5.9, hemoglobin of 12.9, hematocrit of 38.2. Chemistry: Sodium of 139, potassium of 4.7, her BUN is 37 , creatinine of 2.33, glucose was 271. CK was 253. Her urine was not done. ASSESSMENT AND PLAN: Patient is a very pleasant 73-year-old female who presents to the hospital with complaints of some confusion: 1. Acute confusion with some emotional component. I do not think, this is anything in terms of stroke, I believe this is some underlying dementia that has been aggravated or is more prominent due to her elevated blood pressure when she came into the ER. I did ask the if she had been tested for dementia, patient's stated that she has been tested by her primary care ; however, patient did not want to take the medication that was prescribed by her primary care. If the patient has not had an MRI, which she has and her last MRI was in 2017. I will repeat an MRI in the morning. Also, we will check a vitamin B12. I will check urine. I do not see any infectious process may be a psychiatric evaluation as an outpatient would be helpful for this patient. I did speak with in length in regards to most likely about what I thought the diagnosis is. So again, we will check an MRI brain in the morning. She needs most likely psychiatrist as an outpatient. We will check a vitamin B12. Patient should be able to be discharged home in the morning. I do not feel this patient needs additional workup for stroke. 2. Deep venous thrombosis prophylaxis. We will put patient on sequential compression devices. 3. Hypertension urgency. We will continue her blood pressure medications. pt was given hydralazine since her bp was elevated 4) mild raymon on ckd: will monitor. pt does not take asa since she has AV malformation in her colon and has had bleeding. She and her need to discuss this with her pcp/cardiology and nephro MTDD
[2018-07-07 05:32] VITALS: BMI 29.2
[2018-07-07] MEDS ORDERED: Levothyroxine Sodium 100 MCG TAB PO SCH (06:00)
[2018-07-07] MEDS: Carvedilol 25 MG TAB PO SCH ×2 (07:45→18:11)
[2018-07-07] MEDS ORDERED: Non-Formulary Item 1 EACH (Omeprazole [Omeprazole] 20 MG) PO SCH (09:00)
[2018-07-07] MEDS ORDERED: Insulin Glargine 35 UNITS in Pre-Filled Syringe 1 EACH SC SCH (09:00)
[2018-07-07] MEDS ORDERED: NIFEdipine XL 60 MG TAB PO SCH (09:00)
[2018-07-07] MEDS ORDERED: Dextrose 5% in Water 1,000 ML IV PRN (09:40)
[2018-07-07] MEDS ORDERED: Dextrose 50% Abboject 50 ML SYRINGE SLOW IVP PRN (09:40)
[2018-07-07] MEDS: Ferrous Sulfate 325 MG TAB PO SCH ×2 (10:37→18:11)
--- NOTE | 2018-07-07 10:57 | CON ---
DATE OF CONSULTATION: 07/07/2018 CONSULTING PHYSICIAN: Hospitalist service. 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 PLAN: 1. Celexa 20 mg per day. 2. Office followup. HISTORY OF PRESENT ILLNESS: Ms. Canales is a 73-year-old white female, who was brought into the emerg ency room by her due to persistent crying episodes. She reportedly sits around the house and there does not get much done. She cries over simple things that are irrelevant to her. On one occa franci, she drove to a friend's house to bring them food and got lost. She was unable to find her way back home. She has gotten up in the middle of the night and could not find her way around the house in a normal fashion and ended up in the closet. She does not have any hallucinations or delusional t houghts. She is rarely talkative and her has not been able to get any specific complaints ou t of her. Her symptoms began at least 2 years ago. The crying became more excessive and he decided he could not stand it any longer and brought her to the emergency room. PAST MEDICAL HISTORY: Renal insufficiency. FAMILY HISTORY: Noncontributory. ALLERGIES: PENICILLIN and CYCLOBENZAPRINE. MEDICATIONS: List was reviewed. SOCIAL HISTORY: No tobacco or alcohol use. Still living at home with her in [place]. REVIEW OF SYSTEMS: Patient has no particular complaints. PHYSICAL EXAMINATION: VITAL SIGNS: Blood pressure 224/103, pulse 78, respirations 16, temperature 98.5. HEENT: Pupils equal and reactive. Conjunctivae clear. Oropharynx clear. NECK: Supple. EXTREMITIES: No cyanosis or edema. NEUROLOGIC EXAM: She was alert and cooperative. She was oriented to person and the fact that she wa s in the hospital. She could not name the hospital, name the President, tell me what month we were i n, she did not know her age and could not recall how long she has been . Her speech is fluent and clear. Cranial nerves are intact. Motor exam showed symmetric strength with normal tone. Ther e is no tremor or other abnormal movements. Sensation is intact to light touch. Gait was not tested . LABORATORY STUDIES: Reviewed and only notable for her BUN of 34, creatinine of 2.07. MRI of the bra in was done, which showed some periventricular white matter capping, but no acute or chronic ischemic changes. There is age-appropriate atrophy. SUMMARY: A 73-year-old woman, who appears to have cognitive impairment that dates back at least 2 ye ars with mood instability. It is difficult to say how much is depression and how much is related to dementia. I have explained this to her . I would suggest starting her on an antidepressant a nd I will follow up with her as an outpatient.
[2018-07-07] MEDS: HumaLOG 300 UNITS/3 ML VIAL SC PRN ×2 (11:38→15:59)
--- NOTE | 2018-07-07 11:40 | MRI ---
MRI BRAIN NONCONTRAST: DATE: 07/07/2018 HISTORY: A 73-year-old female with altered mental status and acute confusion. COMPARISON: Noncontrast brain MRI of 01/15/2017. FINDINGS: Again noted are the small regions of encephalomalacia and gliosis involving the gyrus rectus bilatera lly and the right orbital gyrus, consistent with old traumatic injury. There is an old lacunar infarction in the upper amanda, slightly to the left of midline, which was not present on the 01/15/2017 MRI. There are mild chronic ischemic white matter changes. No obstructive hydrocephalus, mass effect, mid line shift, acute intraaxial hemorrhage, restricted diffusion, or extraaxial fluid collection. Again noted is the tiny, old lacunar infarction with hemosiderin stain at the right basal ganglia or poste rior limb of right internal capsule. IMPRESSION: 1. 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 2. Old lacunar infarction of the upper amanda, which occurred some time after the previous MRI of 08/2016. 3. Mild chronic ischemic white matter changes. 4. No acute intracranial findings. PHILIP Chandra POS: LISA
[2018-07-07 14:11] LABS: Bilirubin Negative (Negative); Blood, Urine Negative (Negative); Clarity CLEAR (Clear); Glucose, Urine (Dipstick) 100 mg/dL (Negative); Leukocyte Small (Negative); Nitrite Negative (Negative); Protein, Urine (Dipstick) > or equal to 300 mg/dL (Neg-Trace); Specific Gravity, Urine 1.018 (1.002-1.036); Urobilinogen 0.2 mg/dL (0.2-1.0)
[2018-07-07 14:14] LABS: Bacteria/HPF None Seen HPF (None Seen); Hyaline Casts/LPF 4-6 HYALINE CAST LPF (0-3 Hyaline); Pathc Cast-AUWi Flag 1.01 (0-2.49)
[2018-07-07 14:15] LABS: Renal Epithelial None Seen HPF (0-3); Transitional Epithelial NONE SEEN HPF (0-3)
[2018-07-07 15:23] LABS: Amphetamine Not Detected (NotDetected); Barbiturates Screen Not Detected (NotDetected); Benzodiazepine Screen Detected (NotDetected); Cocaine Metabolite Screen Not Detected (NotDetected); Medtox Control Line Valid? VALID (VALID); Medtox Reader # READER 1; Methadone Not Detected (NotDetected); Methamphetamine Not Detected (NotDetected); Opiate Screen Not Detected (NotDetected); Oxycodone Screen Not Detected (NotDetected); Phencyclidine (PCP) Not Detected (NotDetected); THC/Cannabinoid Screen Not Detected (NotDetected); Tricyclic Screen Not Detected (NotDetected)
[2018-07-07] MEDS ORDERED: buPROPion 75 MG TAB PO SCH ×2 (16:15→21:00)
[2018-07-07 16:18] VITALS: BP 157/77; TEMP 98.8
--- NOTE | 2018-07-07 20:18 | DIS ---
DATE OF ADMISSION: 07/06/2018 DATE OF DISCHARGE: 07/07/2018 PRIMARY CARE PROVIDER: Nanette Gutierrez M.D. DISCHARGE DIAGNOSES: 1. Encephalopathy. 2. Hypertensive urgency CONSULTATIONS DURING THIS HOSPITALIZATION: Neurology, Dr. Harpreet Pemberton. DISCHARGE MEDICATIONS: In addition to patient's preadmission home medications as dictated on history and physical note by Dr. Jaramillo, she is being discharged on Wellbutrin 75 mg 2 times a day. HOSPITAL COURSE: Ms. Canales is a pleasant 73-year-old lady, who was admitted to [facility] on 07/06/2018 for being very emotional and confused. Please refer to Dr. Jaramillo's hist ory and physical note for further details. She also had hypertensive urgency. At the time of admiss ion, but that resolved. 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 She had mild chronic isc hemic white matter changes. There were no acute intracranial findings. She was seen by Neurology Se rian. Neurology service's impression is that she has cognitive impairment that dates back at least 2 years with mood instability. It was unclear how much was depression and how much was related to de mentia. Neurology service recommended starting her on antidepressant and they will follow up with [facility] as an outpatient. The patient has also been advised to seek referral to psychiatrist if her sympto ms do not improve. She does not have any suicidal or homicidal ideation. On the day of discharge, she has normal sodium, normal potassium, elevated blood urea nitrogen of 34, elevated creatinine of 2.07, elevated vitamin B12 level of 1139 and an unremarkable CBC. Many thanks for allowing me to participate in your patient's care. Please feel free to contact me wi th any questions or concerns. DISCHARGE DESTINATION: Home. Ms. Canales was also evaluated by physical therapy and occupational therapy services. She is being di scharged home with Home Health for physical therapy.
[2018-07-07] MEDS ORDERED: Gabapentin 400 MG CAP PO SCH (21:00)
[2018-07-07] MEDS ORDERED: Insulin Glargine 11 UNITS in Pre-Filled Syringe 1 EACH SC SCH (21:00)
== END 2018-07-07 18:40 | disposition home or self-care (01) ==
LOC: ERS 19:12 → 2SE 23:58
PROVIDERS: ADMIT Internal Medicine; ATTEND Internal Medicine
DX: G93.40 Encephalopathy, unspecified (principal); I16.0 Hypertensive urgency; E11.22 Type 2 diabetes mellitus with diabetic chronic kidney disease; N18.4 Chronic kidney disease, stage 4 (severe); I50.30 Unspecified diastolic (congestive) heart failure; N17.9 Acute kidney failure, unspecified; E03.9 Hypothyroidism, unspecified; K21.9 Gastro-esophageal reflux disease without esophagitis; E53.8 Deficiency of other specified B group vitamins; F32.9 Major depressive disorder, single episode, unspecified; I27.20 Pulmonary hypertension, unspecified; Z79.4 Long term (current) use of insulin; Z79.899 Other long term (current) drug therapy; Z88.0 Allergy status to penicillin
CPT/HCPCS: 70450; 70551; 80048; 80053; 80306; 82550; 82553; 82607; 82962; 84484; 85025 ×2; 93005; 94760; 96361; 96374; 97116; 97139 ×3; 99285; G0378 ×2; G8978; G8979; G8980; G8987; G8988; G8989; 36415; 36416; 81003; 81015; J0360

== ENCOUNTER 2018-11-15 08:25 | Outpatient (CLI) | payer MEDICARE ==
--- NOTE | 2018-11-15 10:53 | BD ---
DEXA BONE DENSITY: HISTORY: Postmenopausal female. Screening study. COMPARISON: None. FINDINGS: LEFT HIP: BMD (g/cm2) Femoral Neck: 0.789 T-Score: -0.5 1.4 Total Femur: 0.922 T-Score: -0.2 1.5 RIGHT HIP: Femoral Neck: 0.822 T-Score: -0.2 1.7 Total Femur: 0.995 T-Score: 0.4 2.1 Impression: Left Hip: WHO classification normal. Right Hip: WHO classification normal. FRAX not reported because all T-scores are at or above -1.0. POS: [facility]
--- NOTE | 2018-11-17 18:27 | MMO ---
Bilateral MAMMO Bilat Screen [facility]. CLINICAL HISTORY: Patient is 73 years old and is seen for screening. The patient has the following family history of breast cancer: maternal grandmother, at age 70, malignant (generic). The patient has no personal history of cancer. VIEWS: The views performed were: bilateral craniocaudal with tomosynthesis; bilateral mediolateral oblique with tomosynthesis; and left mediolateral oblique. FILMS COMPARED: The present examination has been compared to prior imaging studies performed at [facility] on 01/04/2014, 02/20/2015 and 05/06/2016. MAMMOGRAM FINDINGS: There are scattered fibroglandular densities. There are stable benign appearing calcifications seen in both breasts. There are no suspicious masses, calcifications or areas of architectural distortion. There are no suspicious masses, suspicious calcifications, or new areas of architectural distortion. IMPRESSION: THERE IS NO MAMMOGRAPHIC EVIDENCE OF MALIGNANCY. A ROUTINE FOLLOW-UP MAMMOGRAM IN 1 YEAR IS RECOMMENDED. THE RESULTS OF THIS EXAM WERE SENT TO THE PATIENT. ACR BI-RADS Category 2 - Benign finding MAMMOGRAPHY NOTE: 1. A negative mammogram report should not delay a biopsy if a dominant of clinically suspicious mass is present. 2. Approximately 10% to 15% of breast cancers are not detected by mammography. 3. Adenosis and dense breasts may obscure an underlying neoplasm.
== END 2018-11-15 08:26 | disposition home or self-care (01) ==
LOC: BICMAMMO 08:25
PROVIDERS: ATTEND Family Medicine
DX: Z12.31 Encounter for screening mammogram for malignant neoplasm of breast (principal); Z78.0 Asymptomatic menopausal state; Z80.3 Family history of malignant neoplasm of breast
CPT/HCPCS: 77063; 77067; 77080

== ENCOUNTER 2018-11-15 12:01 | Emergency (ER) | payer MEDICARE ==
[2018-11-15] MEDS ORDERED: cloNIDine 0.1 MG TAB ONE (13:03)
== END 2018-11-15 14:35 | disposition home or self-care (01) ==
LOC: ERS 12:01
DX: I10 Essential (primary) hypertension (principal); E03.9 Hypothyroidism, unspecified; D64.9 Anemia, unspecified; E11.9 Type 2 diabetes mellitus without complications; F32.9 Major depressive disorder, single episode, unspecified
CPT/HCPCS: 93005

== ENCOUNTER 2018-11-29 08:29 | Outpatient (CLI) | payer MEDICARE ==
--- NOTE | 2018-11-29 10:47 | MRI ---
MRI lumbar spine. HISTORY: Spinal degenerative disease. M51.36. Comparison made to previous exam from 2016. For the purposes of this dictation the last freely movable vertebral body will be considered to be th e L5 vertebral body. All other vertebral bodies numbered according to this. The patient has a transitional L5 vertebral body. There are 4 other nonrib-bearing lumbar vertebra ab ove this transitional vertebral level. T12-L1: Disc desiccation is seen. Mild facet hypertrophy is seen. The central canal and neural forame n are patent. L1-2: Disc desiccation seen. There is disc space height loss seen. There is a broad-based central dis c osteophyte complex minimally but not significantly compressing the thecal sac. There is moderate right L1 to lateral recess stenosis due to osteophyte encroachment. The right and left neural foramen are patent. L2-3: Disc desiccation seen. There is disc space height loss seen. There is a broad-based disc osteop hyte complex centrally resulting in mild central stenosis. There is a moderate right and severe left-sided neural foraminal narrowing due to facet hypertrophy. The patient's had a previous L3 vertebroplasty. L3-4: There is disc desiccation seen. There is a broad-based disc bulge with bilateral facet hypertro phy. This results in minimal but not significant degree of central stenosis. There is moderate right and severe left-sided L3-4 neural foraminal narrowing. L4-5: Mild facet hypertrophy is seen. Moderate left-sided lateral recess stenosis seen. Mild central spinal stenosis seen. Moderate severe left L4-5 neural foraminal narrowing seen. The right neural foramen mistreats minimal stenosis. L5-S1: Unremarkable. There is significant sacralization of the L5 vertebral body. Impression transitional L5 vertebral body with multilevel neural foraminal narrowing especially on th e left as described above.
== END 2018-11-29 08:30 | disposition home or self-care (01) ==
LOC: BICMRI 08:29
PROVIDERS: ATTEND Neurological Surgery
DX: M51.36 Other intervertebral disc degeneration, lumbar region (principal); M46.1 Sacroiliitis, not elsewhere classified; M48.061 Spinal stenosis, lumbar region without neurogenic claudication
CPT/HCPCS: 72148

== ENCOUNTER 2019-01-05 14:39 | Inpatient (IN) | payer MEDICARE ==
[2019-01-05] MEDS ORDERED: Furosemide 20 MG/2 ML VIAL ONE (15:20)
[2019-01-05] MEDS ORDERED: Lorazepam 2 MG/ML VIAL ONE (15:20)
[2019-01-05 15:24] LABS: #Eosinphils 0.1 thou/uL (0.0-0.7); #Monocytes 0.5 thou/uL (0.11-0.59); #Neutrophils 3.5 thou/uL (1.40-6.50); %Basophils 0.8 % (0.0-1.0); %Eosinophils 2.2 % (0.0-10.0); %Lymphocytes 19.7 % (21.0-51.0); %Monocytes 9.1 % (0.0-10.0); %Neutrophils 68.2 % (42.0-75.0); Hemoglobin 9.3 g/dL (12.0-16.0); Mean Corpuscular HGB CONC 33.3 g/dL (32.0-36.0); Mean Corpuscular Hemoglobin 30.8 pg (27.0-31.0); Mean Corpuscular Volume 92.5 fL (78.0-98.0); Mean Platelet Volume 7.6 fL (7.4-10.4); Platelet Count 190 thou/uL (130-400); RBC Distribution Width 12.2 % (11.5-14.5); Red Blood Cell (RBC) Count 3.02 mill/uL (4.20-5.40); White Blood Cell (WBC) Count 5.1 thou/uL (4.8-10.8)
--- NOTE | 2019-01-05 15:24 | RAD ---
PORTABLE CHEST 1 VIEW: DATE: 01/05/2019. TIME: 3:01 p.m. HISTORY: Shortness of breath. FINDINGS: Comparison is made to the exam of 04/05/2018. The heart size is borderline. There is mild pulmonary vascular congestion with probable small pleura l effusions. There are postop changes of right rotator cuff repair. IMPRESSION: Probable mild congestive heart failure. POS: [facility]
[2019-01-05 15:50] LABS: ALT (SGPT) 20 U/L (8-55); AST (SGOT) 17 U/L (5-34); Albumin 3.8 g/dL (3.4-4.8); Alkaline Phosphatase 77 U/L (40-150); Anion Gap 12 mmol/L (10-20); BUN (Urea Nitrogen) 58 mg/dL (9.8-20.1); Bilirubin, Total 0.4 mg/dL (0.2-1.2); Calc. Creatinine Clearance 0 mL/min (70-130); Calcium 9.1 mg/dL (7.8-10.44); Carbon Dioxide 25 mmol/L (23-31); Chloride 106 mmol/L (98-107); Estimated GFR-MDRD 12; Globulin 2.3 g/dL (2.4-3.5); Glucose 246 mg/dL (83-110); Lipase 76 U/L (8-78); Protein, Total 6.1 g/dL (6.0-8.3); Sodium 138 mmol/L (136-145)
[2019-01-05] MEDS ORDERED: Nitroglycerin 2% Ointment 1 INCH/1 GM Packet ONE (16:14)
[2019-01-05] MEDS ORDERED: hydrALAZINE 20 MG/ML VIAL ONE ×2 (18:06→18:47)
[2019-01-05] MEDS ORDERED: Acetaminophen 325 MG TAB PO PRN (21:18)
[2019-01-05] MEDS ORDERED: Acetaminophen 650 MG Suppository PR PRN (21:18)
[2019-01-05] MEDS: cloNIDine 0.1 MG TAB PO PRN (22:32)
[2019-01-05] MEDS ORDERED: Dextrose 50% Abboject 50 ML SYRINGE SLOW IVP PRN (23:46)
[2019-01-05] MEDS ORDERED: Dextrose 5% in Water 1,000 ML IV PRN (23:46)
[2019-01-06] MEDS ORDERED: cloNIDine 0.1 MG TAB PO SCH (00:30)
[2019-01-06] MEDS: Levothyroxine Sodium 100 MCG TAB PO SCH (05:19)
[2019-01-06 05:23] LABS: #Eosinphils 0.1 thou/uL (0.0-0.7); #Lymphocytes 1.2 thou/uL (1.20-3.40); #Monocytes 0.6 thou/uL (0.11-0.59); %Basophils 0.6 % (0.0-1.0); %Eosinophils 2.2 % (0.0-10.0); %Lymphocytes 24.6 % (21.0-51.0); %Monocytes 11.7 % (0.0-10.0); %Neutrophils 60.9 % (42.0-75.0); Hemoglobin 8.5 g/dL (12.0-16.0); Mean Corpuscular HGB CONC 34.1 g/dL (32.0-36.0); Mean Corpuscular Hemoglobin 31.5 pg (27.0-31.0); Mean Corpuscular Volume 92.4 fL (78.0-98.0); Mean Platelet Volume 7.9 fL (7.4-10.4); Platelet Count 190 thou/uL (130-400); RBC Distribution Width 12.2 % (11.5-14.5)
[2019-01-06 05:43] LABS: Anion Gap 13 mmol/L (10-20); BUN (Urea Nitrogen) 54 mg/dL (9.8-20.1); Calc. Creatinine Clearance 19 mL/min (70-130); Carbon Dioxide 23 mmol/L (23-31); Chloride 107 mmol/L (98-107); Estimated GFR-MDRD 12; Glucose 233 mg/dL (83-110); Potassium 4.6 mmol/L (3.5-5.1); Sodium 138 mmol/L (136-145)
--- NOTE | 2019-01-06 07:40 | HP ---
PRIMARY CARE DOCTOR: Primary care doctor for this patient is Dr. Nanette Gutierrez. CODE STATUS: Full code. TIME OF EVALUATION: 7:30 p.m. CHIEF COMPLAINT: Shortness of breath. HISTORY OF PRESENT ILLNESS: This is a 73-year-old female patient, past medical history of hypothyroidism, CHF, kidney stone, hypertension, end-stage renal disease, diabetes, and history of lower GI bleeding, came to the hospital after having shortness of breath that has been gradually getting worse. The shortness of breath was on exertion with no alleviating factors, except for rest. The patient had been off her Lasix for a week now due to worsening kidney function, and also presented with associated with very high blood pressure in the rate of systolic in the 240s. REVIEW OF SYSTEMS: CONSTITUTIONAL: No fever, chills, or generalized weakness. RESPIRATORY: No cough, sputum production, or shortness of breath. CARDIOVASCULAR: No chest pain or palpitations. GASTROINTESTINAL: No nausea, vomiting, diarrhea, or abdominal pain. RUG CLIPPER: No dizziness, headache, or feeling lightheaded. GENITOURINARY: No burning on urination. EXTREMITIES: Patient has bilateral leg swelling. All other systems were reviewed and negative, except for the findings mentioned above. PAST MEDICAL HISTORY: Positive for the problems mentioned in the HPI. PAST SURGICAL HISTORY: Patient has right shoulder surgery, spinal surgery, thyroidectomy, tonsillectomy, appendectomy, cholecystectomy, and hysterectomy. PSYCHIATRIC HISTORY: Depression. SOCIAL HISTORY: No drugs. No smoking history. No alcohol. FAMILY HISTORY: There is no family history. ALLERGIES: KNOWN ALLERGIES TO CYCLOBENZAPRINE AND PENICILLIN. REPORTED MEDICATIONS: Gabapentin, magnesium oxide, levothyroxine, hydralazine, torsemide, omeprazole, Lantus, Procardia XL, carvedilol, bupropion, atorvastatin, Celexa, and clonidine. PHYSICAL EXAMINATION: VITAL SIGNS: On presentation, blood pressure 221/97, although some episodes of hypertension which were in the range of 250 to 260; heart rate was 71; respiratory rate was 18; pain was 0/10; and oxygen saturation was 98% on room air. GENERAL APPEARANCE: The patient is alert, oriented, not in acute distress. HEENT: Eyes normal. ENT: Moist oral mucosa. Anicteric. No JVD. RESPIRATORY: Bilateral air entry. No rales. No wheezes. Symmetric expansion. CARDIOVASCULAR: Normal rate. Regular rhythm. No murmurs. No gallop. Bilateral leg edema. ABDOMEN: Soft. Normal bowel sounds. She reported it is mildly distended. MUSCULOSKELETAL: Baseline range of motion and strength. No tenderness. SKIN: Warm and intact. No pallor. No rash. No redness. Peripheral pulses are present. Capillary refill seems to be intact. NEUROLOGIC: No evidence of any new focal weakness. Baseline speech. Cranial nerves seems to be intact. PSYCH: Patient is in good mood. No anxiety. Optimal judgment, although when talking about her mom, patient had easy change in mood to depression. IMAGING: EKG was reviewed. The patient has normal sinus rhythm with a rate of 71, NM 130, QRS 76, and QT corrected 467. Chest x-ray showed probably mild congestive heart failure. LABORATORY DATA: The labs were reviewed. The patient has white count 5.1; hemoglobin 9.3, previous hemoglobin was around 11; hematocrit 28; MCV 92.5; and platelet count 190. Chemistry was reviewed. Sodium 138, potassium 5.0, chloride 106, carbon dioxide 25, anion gap 12, BUN 58, creatinine 3.69, GFR 12, glucose 246, calcium 9.1, total bilirubin 0.4, AST 17, ALT 20, and alk phos 77. Beta natriuretic peptide was 508. Troponin was negative. Globulin 2.3, albumin 3.8. Serum total protein 6.1 with lipase 76. ASSESSMENT AND PLAN: The patient will be placed in the hospital with the following medical problems. 1. In the emergency room, patient presented with systolic blood pressure in the 250s. No significant symptoms. We will bring down the blood pressure. Initial medication in the ER had been given with some correction of the blood pressure. We will start reconcile home medications and adjust treatment as needed with some p.r.n. medications. 2. End-stage renal disease. The patient's GFR was 12, will need consultation from Dr. Ta for any further recommendation. Patient might just have increased fluid overload and that is the reason for the high blood pressure. 3. Chronic normocytic anemia. There is some drop in hemoglobin. We will continue to monitor hemoglobin, may be delusional. No evidence of bleeding at this point. We will defer to Nephro for any further treatment. This can be addressed as outpatient if no further hemoglobin drop is seen. 4. Uncontrolled diabetes. We will place the patient on sliding scale low carb diet is recommended. 5. Hypothyroidism. Continue levothyroxine 100 mcg a day. 6. Deep venous thrombosis prophylaxis. Job ID: [id number]
[2019-01-06] MEDS ORDERED: Sodium Chloride 0.9% 10 ML ONE (08:05)
[2019-01-06] MEDS: Ferrous Sulfate 325 MG TAB PO SCH ×2 (09:01→16:00)
[2019-01-06] MEDS: Torsemide 20 MG TAB PO SCH (09:01)
[2019-01-06] MEDS: Fish Oil 1,000 MG CAP PO SCH ×2 (09:01→21:42)
[2019-01-06] MEDS: Carvedilol 25 MG TAB PO SCH ×2 (09:02→17:40)
[2019-01-06] MEDS: buPROPion 75 MG TAB PO SCH ×2 (09:02→21:42)
[2019-01-06] MEDS: Citalopram 20 MG TAB PO SCH (09:02)
[2019-01-06] MEDS: hydrALAZINE 25 MG TAB PO SCH ×3 (09:02→21:42)
[2019-01-06] MEDS: cloNIDine 0.2 MG TAB PO SCH ×3 (09:02→21:43)
[2019-01-06] MEDS: Multivit, Therapeutic 1 TAB PO SCH (09:02)
[2019-01-06] MEDS: NIFEdipine XL 60 MG TAB PO SCH (09:02)
[2019-01-06] MEDS: Heparin 5,000 UNITS/ML VIAL SC SCH ×3 (09:03→21:44)
[2019-01-06] MEDS: Nitroglycerin 2% Ointment 1 INCH/1 GM Packet TOP SCH ×3 (09:04→23:44)
--- NOTE | 2019-01-06 09:56 | PDOC.PN ---
- Subjective Encounter Start Date: 01/06/19 Encounter Start Time: 07:50 -: old records requested/rev pt is sleepy, denies chest pain, denies FND, no dyspnea, on room air - Objective Resuscitation Status - Order Detail: 01/05/19 21:18 Resuscitation Status Routine Resuscitation Status: FULL: Full Resuscitation MAR Reviewed: Yes Vital Signs & Weight: Vital Signs (12 hours) Temp Pulse Resp BP BP BP Pulse Ox 01/06/19 08:58 97.8 F 72 18 217/92 H 94 L 01/06/19 03:47 98.4 F 72 16 213/95 H 100 01/06/19 00:46 221/79 H 01/06/19 00:00 73 249/111 H 01/05/19 22:58 100 01/05/19 22:32 221/79 H Weight Weight 188 lb 2 oz Result Diagrams: 01/06/19 04:55 01/06/19 04:55 Additional Labs: Accuchecks 01/06/19 05:52 POC Glucose 231 H Radiology Reviewed by me: Yes (chest xray reviewed) EKG Reviewed by me: Yes (nsr) Phys Exam - Physical Examination Constitutional: NAD HEENT: PERRLA, moist MMs, sclera anicteric Neck: no JVD, supple Respiratory: no wheezing, no rales, no rhonchi coarse sound Cardiovascular: RRR, no significant murmur, no rub Gastrointestinal: soft, non-tender, no distention, positive bowel sounds obesity+ Musculoskeletal: pulses present trace edema+ Neurological: non-focal, normal sensation, moves all 4 limbs Lymphatic: no nodes Psychiatric: normal affect, A&O x 3 Skin: no rash, normal turgor Dx/Plan (1) Acute on chronic diastolic ACC/AHA stage C congestive heart failure Code(s): I50.33 - ACUTE ON CHRONIC DIASTOLIC (CONGESTIVE) HEART FAILURE Status : Acute (2) Acute worsening of stage 4 chronic kidney disease Code(s): N18.4 - CHRONIC KIDNEY DISEASE, STAGE 4 (SEVERE) Status: Acute (3) Hypertensive urgency Code(s): I16.0 - HYPERTENSIVE URGENCY Status: Acute (4) Anemia, normocytic normochromic Code(s): D64.9 - ANEMIA, UNSPECIFIED Status: Chronic (5) Anxiety and depression Code(s): F41.9 - ANXIETY DISORDER, UNSPECIFIED; F32.9 - MAJOR DEPRESSIVE DISORDER, SINGLE EPISODE, UNSPECIFIED Status: Chronic (6) DM2 (diabetes mellitus, type 2) Status: Chronic (7) GERD (gastroesophageal reflux disease) Code(s): K21.9 - GASTRO-ESOPHAGEAL REFLUX DISEASE WITHOUT ESOPHAGITIS Status: Chronic Qualifiers: Comment: (8) HTN (hypertension) Code(s): I10 - ESSENTIAL (PRIMARY) HYPERTENSION Status: Chronic Comment: on home HTN meds (9) Hyperlipidemia Code(s): E78.5 - HYPERLIPIDEMIA, UNSPECIFIED Status: Chronic Qualifiers: (10) Hypothyroidism Code(s): E03.9 - HYPOTHYROIDISM, UNSPECIFIED Status: Chronic Qualifiers: Comment: (11) Moderate tricuspid regurgitation by prior echocardiogram Code(s): I07.1 - RHEUMATIC TRICUSPID INSUFFICIENCY Status: Chronic (12) Obesity (BMI 30.0-34.9) Code(s): E66.9 - OBESITY, UNSPECIFIED Status: Chronic - Plan cont current plan of care, plan discussed w/ family * add nitro patch * I have reconciled all her home meds * she is on many different BP meds, today will monitor and adjust BP meds * nephrology consulted * medication reviewed as below * symptomatic treatment * discussed with . Review of Systems - Review of Systems ENT: negative: Ear Pain, Ear Discharge, Nose Pain, Nose Discharge, Nose Congestion, Mouth Pain, Mouth Swelling, Throat Pain, Throat Swelling, Other Respiratory: negative: Cough, Dry, Shortness of Breath, Hemoptysis, SOB with Excertion, Pleuritic Pain, Sputum, Wheezing Cardiovascular: negative: chest pain, palpitations, orthopnea, paroxysmal nocturnal dyspnea, edema, light headedness, other Gastrointestinal: negative: Nausea, Vomiting, Abdominal Pain, Diarrhea, Constipation, Melena, Hematochezia, Other Genitourinary: negative: Dysuria, Frequency, Incontinence, Hematuria, Retention , Other Musculoskeletal: negative: Neck Pain, Shoulder Pain, Arm Pain, Back Pain, Hand Pain, Leg Pain, Foot Pain, Other Skin: negative: Rash, Lesions, Fabian, Bruising, Other - Medications/Allergies Allergies/Adverse Reactions: Allergies Allergy/AdvReac Type Severity Reaction Status Date / Time Penicillins Allergy Severe Verified 04/06/18 00:50 cyclobenzaprine HCl AdvReac Verified 01/05/19 22:05 [From Flexeril] Medications: Current Medications Acetaminophen (Tylenol) 650 mg PO Q4H PRN PRN Reason: Headache/Fever/Mild Pain (1-3) Acetaminophen (Tylenol) 650 mg PA Q4H PRN PRN Reason: Headache/Fever/Mild Pain (1-3) Atorvastatin Calcium (Lipitor) 20 mg PO [facility] Bupropion HCl (Wellbutrin) 75 mg PO BID [facility] Last Admin: 01/06/19 09:02 Dose: 75 mg Carvedilol (Coreg) 25 mg PO 0900,1800 [facility] Last Admin: 01/06/19 09:02 Dose: 25 mg Cholecalciferol (Vitamin D3) 1,000 units PO DAILY [facility] Last Admin: 01/06/19 09:02 Dose: 1,000 units Citalopram Hydrobromide (Celexa) 20 mg PO DAILY [facility] Last Admin: 01/06/19 09:02 Dose: 20 mg Clonidine (Catapres) 0.1 mg PO Q4H PRN PRN Reason: BP>180/100 Last Admin: 01/05/19 22:32 Dose: 0.1 mg Clonidine (Catapres) 0.2 mg PO TID [facility] Last Admin: 01/06/19 09:02 Dose: 0.2 mg Dextrose/Water (Dextrose 50%) 25 gm SLOW IVP PRN PRN PRN Reason: Hypoglycemia Ferrous Sulfate (Feosol) 325 mg PO BID-[facility] Last Admin: 01/06/19 09:01 Dose: 325 mg Fish Oil (Fish Oil) 1,000 mg PO BID [facility] Last Admin: 01/06/19 09:01 Dose: 1,000 mg Glucagon (Glucagon) 1 mg IM PRN PRN PRN Reason: Hypoglycemia Heparin Sodium (Porcine) (Heparin) 5,000 units SC TID [facility] Last Admin: 01/06/19 09:03 Dose: 5,000 units Hydralazine HCl (Apresoline) 25 mg PO TID [facility] Last Admin: 01/06/19 09:02 Dose: 25 mg Dextrose/Water (D5w) 1,000 mls @ 0 mls/hr IV .Q0M PRN PRN Reason: Hypoglycemia Insulin Glargine 14 units/ (Miscellaneous Medication) 0.14 mls @ 0 mls/hr SC [facility] Insulin Human Lispro (Humalog) 0 units SC .MILD SLIDING SCALE PRN PRN Reason: Mild Correctional Scale Isosorbide Mononitrate (Imdur Er) 30 mg PO DAILY [facility] Levothyroxine Sodium (Synthroid) 100 mcg PO 0600 [facility] Last Admin: 01/06/19 05:19 Dose: 100 mcg Multivitamins (Theragran) 1 tab PO DAILY [facility] Last Admin: 01/06/19 09:02 Dose: 1 tab Nifedipine (Procardia Xl) 60 mg PO DAILY [facility] Last Admin: 01/06/19 09:02 Dose: 60 mg Nitroglycerin (Nitro-Bid 2% Ointment) 0.5 inch TOP 0800,1600,2359 [facility] Last Admin: 01/06/19 09:04 Dose: 0.5 inch Ondansetron HCl (Zofran Odt) 4 mg PO Q6H PRN PRN Reason: Nausea/Vomiting Ondansetron HCl (Zofran) 4 mg IVP Q6H PRN PRN Reason: Nausea/Vomiting Pantoprazole Sodium (Protonix) 40 mg PO DAILY [facility] Last Admin: 01/06/19 09:02 Dose: 40 mg Sodium Chloride (Flush - Normal Saline) 10 ml IVF Q12HR [facility] Sodium Chloride (Flush - Normal Saline) 10 ml IVF PRN PRN PRN Reason: Saline Flush Torsemide (Demadex) 40 mg PO DAILY [facility] Last Admin: 01/06/19 09:01 Dose: 40 mg
[2019-01-06] MEDS: cloNIDine 0.1 MG TAB PO PRN (11:47)
[2019-01-06] MEDS: HumaLOG 300 UNITS/3 ML VIAL SC PRN ×2 (11:48→17:40)
--- NOTE | 2019-01-06 15:37 | CON ---
DATE OF CONSULTATION: SUBJECTIVE: Ms. Canales is a 73-year-old white female with known history of chronic renal failure from diabetic nephropathy and was admitted for shortness of breath. Chest x-ray shows some mild edema. We are now being consulted for acute kidney injury on top of her chronic renal failure. Of interest, this patient was [facility] November 22, 2018, and her creatinine was noted 2.79. However, during her visit with the PCP several weeks later, her renal function was worsening and for that reason the torsemide she was taking was discontinued. We are now being consulted for acute kidney injury on top of her chronic renal failure. REVIEW OF SYSTEMS: Positive for mild shortness of breath. No chest pain. No syncopal episode. Denies any leg edema. No diarrhea. No constipation. No productive cough. No fever or chills. No headache. No sore throat. No gross hematuria. No dysuria. No urinary frequency. No abdominal pain. Appetite and energy level are fair. MEDICATIONS: Currently shows the following. 1. Lipitor 20 mg at bedtime. 2. Wellbutrin 75 mg p.o. b.i.d. 3. Coreg 25 mg p.o. b.i.d. 4. Vitamin D3 1000 IU daily. 5. Celexa 20 mg once a day. 6. Clonidine 0.2 mg p.o. t.i.d. 7. Ferrous sulfate 325 mg p.o. b.i.d. 8. Fish oil 1000 mg p.o. b.i.d. 9. Heparin 5000 units subcu t.i.d. 10. Hydralazine 25 mg p.o. t.i.d. 11. Insulin glargine 14 units subcu at bedtime. 12. Humalog sliding scale. 13. Synthroid 100 mcg daily. 14. Multivitamin daily. 15. Procardia XL 60 mg once a day. 16. Zofran 4 mg IV q.6. 17. Protonix 40 mg tablet once a day. 18. Torsemide 40 mg p.o. daily. PAST MEDICAL HISTORY: 1. Chronic renal failure from diabetic nephropathy. 2. Type 2 diabetes mellitus. 3. Chronic diastolic heart failure. 4. GERD. 5. Long-standing hypertension. 6. Hypothyroidism, status post GI bleed from an AV malformation. 7. Hyperlipidemia. 8. Depression. 9. Chronic leg edema. 10. Diabetic neuropathy. PAST SURGICAL HISTORY: Status post hysterectomy, status post cholecystectomy, status post thyroidectomy, status post right shoulder surgery, status post appendectomy, status post colonoscopy with laser ablation of AV malformation. ALLERGIES: PENICILLIN, FLEXERIL. TRAUMA: None. IMMUNIZATION: Up-to-date. HOSPITALIZATIONS: Please see past medical history. SOCIAL HISTORY: The patient lives at [place], , 2 children. Sedentary lifestyle. No smoking. No alcohol. No IV drug abuse. FAMILY HISTORY: No family history of ESRD. PHYSICAL EXAMINATION: VITAL SIGNS: Blood pressure is currently noted at 217/92 with a heart rate of 72, respiratory rate 18, temperature 97.8, and pulse ox 94%. GENERAL: The patient is awake, alert, comfortable, not in overt distress. SKIN: Adequate turgor. HEENT: Slightly pale conjunctivae. Anicteric sclerae. No neck mass. No carotid bruits. No JVD. CHEST: No deformities. LUNGS: Decreased breath sounds. HEART: Normal sinus rhythm. No murmurs, gallops, or rubs. ABDOMEN: Globular, soft, nontender, no masses. EXTREMITIES: No edema. No deformities. NEUROLOGICAL: Moving all extremities. No tremors or asterixis. No ataxia. LABORATORY DATA: January 06, 2019, white count 5, hemoglobin 8.5, hematocrit 25. Sodium 138, potassium 4.6, chloride 107, carbon dioxide 23, BUN 54, creatinine 3.62, glucose 235, calcium 9. January 05, 2019, BUN 58, creatinine 3.69. December 31, 2018, BUN 60, creatinine 3.54. December 27, 2018, creatinine 3.39. December 24, 2018, creatinine 3.54. November 18, 2018, creatinine 2.79. Chest x-ray shows mild CHF. ASSESSMENT AND PLAN: 1. Acute kidney injury-most likely has superimposed hemodynamically-mediated renal dysfunction from her underlying congestive heart failure. Currently, on diuretic regimen. Continue said management. 2. Chronic renal failure secondary to diabetic nephropathy. Baseline creatinine is 2.79. There is no indication for any dialytic intervention. 3. Labile hypertension. Consider adding Imdur ER q.a.m. with this patient. 4. Mildly elevated PTH. Recheck PTH. 5. Anemia, continue to observe and if needed start Epogen when BP is better controlled. Case was discussed at length with the patient and her . Overall, agree with current management. Job ID: [id number]
[2019-01-06] MEDS ORDERED: Insulin Glargine 14 UNITS in Pre-Filled Syringe 1 EACH SC SCH (21:00)
[2019-01-06] MEDS: Atorvastatin Calcium 20 MG TAB PO SCH (21:42)
[2019-01-07 05:14] LABS: #Basophils 0.1 thou/uL (0.0-0.2); #Eosinphils 0.1 thou/uL (0.0-0.7); #Lymphocytes 1.7 thou/uL (1.20-3.40); #Monocytes 0.5 thou/uL (0.11-0.59); #Neutrophils 2.2 thou/uL (1.40-6.50); %Basophils 1.2 % (0.0-1.0); %Eosinophils 2.6 % (0.0-10.0); %Lymphocytes 36.5 % (21.0-51.0); %Monocytes 11.4 % (0.0-10.0); %Neutrophils 48.4 % (42.0-75.0); Hemoglobin 8.9 g/dL (12.0-16.0); Mean Corpuscular HGB CONC 32.4 g/dL (32.0-36.0); Mean Corpuscular Hemoglobin 30.3 pg (27.0-31.0); Mean Corpuscular Volume 93.4 fL (78.0-98.0); Platelet Count 179 thou/uL (130-400); RBC Distribution Width 12.2 % (11.5-14.5); Red Blood Cell (RBC) Count 2.94 mill/uL (4.20-5.40); White Blood Cell (WBC) Count 4.6 thou/uL (4.8-10.8)
[2019-01-07 05:55] LABS: Iron 41 ug/dL (50-170); Phosphorus 4.4 mg/dL (2.3-4.7)
[2019-01-07 06:02] LABS: Anion Gap 15 mmol/L (10-20); BUN (Urea Nitrogen) 62 mg/dL (9.8-20.1); Calc. Creatinine Clearance 16 mL/min (70-130); Calcium 8.9 mg/dL (7.8-10.44); Carbon Dioxide 22 mmol/L (23-31); Chloride 104 mmol/L (98-107); Estimated GFR-MDRD 10; Glucose 131 mg/dL (83-110); Magnesium 1.7 mg/dL (1.6-2.6); Potassium 4.5 mmol/L (3.5-5.1); Sodium 136 mmol/L (136-145)
[2019-01-07 06:06] LABS: Iron 40 ug/dL (50-170); Iron Binding Capacity, Total 228 mcg/dL (265-497)
[2019-01-07] MEDS: Levothyroxine Sodium 100 MCG TAB PO SCH (06:11)
--- NOTE | 2019-01-07 09:39 | PRG ---
DATE OF SERVICE: 01/07/2019 SUBJECTIVE: Ms. Canales is a 73-year-old white female with chronic renal failure from diabetic nephropathy and was seen for her acute kidney injury on top of her chronic renal failure. She was initially admitted for shortness of breath. Chest x-ray showed mild CHF. Cardiac echo was done, which showed a normal EF. Please note, her renal function has worsened. Please note, she is noted to be on torsemide. No other complaints. No chest pain or shortness of breath. She tells me her breathing is better. OBJECTIVE: VITAL SIGNS: Blood pressure 155/69, heart rate 69, respiratory rate 18, temperature 97.8, pulse ox 96% on room air. GENERAL: Awake, alert, comfortable, not in distress, somewhat teary eyed today. SKIN: Adequate turgor. HEENT: Pinkish conjunctivae. Anicteric sclerae. NECK: No neck mass. No carotid bruits. No JVD. CHEST: No deformities. LUNGS: Clear breath sounds. No wheezing. No crackles. HEART: Normal sinus rhythm. No murmur. No gallops. No rubs. ABDOMEN: Globular, soft, nontender. No masses. EXTREMITIES: No edema. No deformities. MEDICATIONS: Medications of January 07, 2019, reviewed. LABORATORY DATA: Laboratories of January 07, 2019; white count 4.6, hemoglobin 8.9. Sodium 138, potassium 4.6, chloride 107, carbon dioxide 23, BUN 54, creatinine 3.62. January 07, 2019, sodium 136, potassium 4.5, chloride 104 carbon dioxide 22, BUN 62, creatinine 4.37, GFR 10 mL/minute. Magnesium 1.7. Iron 40, TIBC 228, PTH 143. ASSESSMENT AND PLAN: 1. Congestive heart failure, clinically much improved. Please note, a cardiac echo was done, it showed a normal EF. Due to the worsening renal dysfunction, we will hold off torsemide. 2. Acute kidney injury/on top of chronic renal failure. She is currently at stage V chronic renal failure. My plan is to stop the torsemide and start albumin 25 grams IV q.6. Hold off any dialysis. No indication for an emergent hemodialysis with this patient. 3. Mildly elevated parathyroid hormone. We will observe. 4. Recheck basic metabolic profile, CBC in a.m. Job ID: [id number] [facility]
--- NOTE | 2019-01-07 09:50 | PQF ---
EDDIE ALCANTARA, RAUDEL FERNANDEZ MD [id number] [facility] [id number] CLINICAL DOCUMENTATION IMPROVEMENT CLARIFICATION FORM: ICD-10 Updated PLEASE DO AN ADDENDUM TO THE PROGRESS NOTE WITH ANY DOCUMENTATION UPDATES OR ADDITIONS AND CARRY THROUGH TO DC SUMMARY. THANK YOU. DATE: 01-07-19 ATTN: DR. GREER Please exercise your independent, professional judgment in responding to the clarification form. Clinical indicators are provided on the bottom of this form for your review Please check appropriate box(s): Conflicting documentation was noted in the Medical Record, please clarify if patient is being treated/monitored for: [ ] ESRD [ x ] KRISTY ON CKD STAGE 4 [ ] Other diagnosis [ ] Unable to determine For continuity of documentation, please document condition throughout progress notes and discharge summary. Thank You. CLINICAL INDICATORS - SIGNS / SYMPTOMS/ LABS 01-05 (GHAZAL): HISTORY OF PRESENT ILLNESS - * ESRD - PATIENT HAD BEEN OFF HER LASIX FOR WEEK NOW D/T WORSENING KIDNEY FUNCTION * GFR was 12 01-06 (ALCON): * CHRONIC RENAL FAILURE FROM DIABETIC NEPHROPATHY * KRISTY - MOST LIKELY HAS SUPERIMPOSED HEMODYNAMICALLY - MEDIATED RENAL DYSFUNCTION FROM HER UNDERLYING CHF. * BASELINE CREATININE IF 2.79. THERE IS NO INDICATION FOR ANY DIALYTIC INTERVENTION. 01-06 (PERCY): * ACUTE WORSENING OF STAGE 4 CKD LABS: GFR 01-05 12 01-06 12 01-07 10 RISK FACTORS 01-06 (RONDON): * CHRONIC RENAL FAILURE FROM DIABETIC NEPHROPATHY TREATMENT NEPHROLOGY CONSULT 01-06 - THERE IS NO INDICATION FOR ANY DIALYTIC INTERVENTION. THANK YOU, WILLA (This form is maintained as a part of the permanent medical record) 2014 [employer] All Rights Reserved Willa Castellanos RN, BS [email or web address] Cell [facility]
[2019-01-07] MEDS: Citalopram 20 MG TAB PO SCH (09:54)
[2019-01-07] MEDS: NIFEdipine XL 60 MG TAB PO SCH (09:54)
[2019-01-07] MEDS: Nitroglycerin 2% Ointment 1 INCH/1 GM Packet TOP SCH ×4 (09:55→23:50)
[2019-01-07] MEDS: hydrALAZINE 25 MG TAB PO SCH ×3 (09:55→23:20)
[2019-01-07] MEDS: Fish Oil 1,000 MG CAP PO SCH ×2 (09:55→21:13)
[2019-01-07] MEDS: Ferrous Sulfate 325 MG TAB PO SCH ×2 (09:55→17:41)
[2019-01-07] MEDS: buPROPion 75 MG TAB PO SCH ×2 (09:55→21:14)
[2019-01-07] MEDS: Multivit, Therapeutic 1 TAB PO SCH (09:55)
[2019-01-07] MEDS: cloNIDine 0.2 MG TAB PO SCH ×3 (09:56→23:19)
[2019-01-07] MEDS: Heparin 5,000 UNITS/ML VIAL SC SCH ×3 (09:56→21:14)
[2019-01-07] MEDS: Carvedilol 25 MG TAB PO SCH ×2 (09:56→17:38)
--- NOTE | 2019-01-07 10:06 | PQF ---
EDDIE ALCANTARA, RAUDEL FERNANDEZ MD [id number] [facility] [id number] CLINICAL DOCUMENTATION IMPROVEMENT CLARIFICATION FORM: ICD-10 Updated PLEASE DO AN ADDENDUM TO THE PROGRESS NOTE WITH ANY DOCUMENTATION UPDATES OR ADDITIONS AND CARRY THROUGH TO DC SUMMARY. THANK YOU. DATE: 01-07-19 ATTN: DR. GRERE Please exercise your independent, professional judgment in responding to the clarification form. Clinical indicators are provided on the bottom of this form for your review Please check appropriate box(s): Mood Disorder Type (check appropriate): [ ] Mild Major Depression, Single Episode [ ] Moderate Major Depression, Single Episode [ ] Severe Major Depression, Single Episode [ x ] Other diagnosis __anxiety and depression, chronic mild [ ] Unable to determine For continuity of documentation, please document condition throughout progress notes and discharge summary. Thank You. CLINICAL INDICATORS - SIGNS / SYMPTOMS / LABS 01-05 (GHAZAL): * PSYCHIATRIC HX: DEPRESSION 01-06 (PERCY): * ANXIETY AND DEPRESSION: MAJOR DEPRESSIVE DISORDER, SINGLE EPISODE, UNSPECIFIED - CHRONIC RISK FACTORS 01-05 (GHAZAL): * PSYCHIATRIC HX: DEPRESSION TREATMENT: MAR: WELLBUTRIN PO 01-06 THANK YOU, WILLA (This form is maintained as a part of the permanent medical record) 2015 [employer]. All Rights Reserved Willa Castellanos RN, BS [email or web address] [facility]
[2019-01-07] MEDS: Albumin 25% 25 GM/100 ML BOT IVPB SCH ×3 (10:57→21:15)
--- NOTE | 2019-01-07 12:40 | PDOC.PN ---
- Subjective Encounter Start Date: 01/07/19 Encounter Start Time: 07:30 Patient seen and examined. No new complaints. No overnight events - Objective Resuscitation Status - Order Detail: 01/05/19 21:18 Resuscitation Status Routine Resuscitation Status: FULL: Full Resuscitation MAR Reviewed: Yes Vital Signs & Weight: Vital Signs (12 hours) Temp Pulse Resp BP BP Pulse Ox 01/07/19 09:56 155/69 H 01/07/19 09:55 59 L 01/07/19 09:54 59 L 01/07/19 08:00 97.8 F 59 L 18 155/69 H 96 01/07/19 03:42 97.2 F L 59 L 18 141/66 H 93 L Weight Weight 188 lb 2 oz I&O: 01/06/19 01/07/19 01/08/19 06:59 06:59 06:59 Intake Total 1080 Output Total 720 Balance 360 Result Diagrams: 01/07/19 04:42 01/07/19 04:42 Additional Labs: Accuchecks 01/07/19 01/07/19 01/06/19 11:12 05:26 20:34 POC Glucose 282 H 146 H 188 H 01/06/19 17:02 POC Glucose 158 H Radiology Reviewed by me: Yes EKG Reviewed by me: Yes Phys Exam - Physical Examination Constitutional: NAD HEENT: PERRLA, moist MMs, sclera anicteric Neck: no JVD, supple Respiratory: no wheezing, no rales, no rhonchi Cardiovascular: RRR, no significant murmur, no rub Gastrointestinal: soft, non-tender, no distention, positive bowel sounds Musculoskeletal: no edema, pulses present Neurological: non-focal, normal sensation, moves all 4 limbs Lymphatic: no nodes Psychiatric: normal affect, A&O x 3 Skin: no rash, normal turgor Dx/Plan (1) Acute on chronic diastolic ACC/AHA stage C congestive heart failure Code(s): I50.33 - ACUTE ON CHRONIC DIASTOLIC (CONGESTIVE) HEART FAILURE Status : Acute (2) Acute worsening of stage 4 chronic kidney disease Code(s): N18.4 - CHRONIC KIDNEY DISEASE, STAGE 4 (SEVERE) Status: Acute (3) Hypertensive urgency Code(s): I16.0 - HYPERTENSIVE URGENCY Status: Acute (4) Anemia, normocytic normochromic Code(s): D64.9 - ANEMIA, UNSPECIFIED Status: Chronic (5) Anxiety and depression Code(s): F41.9 - ANXIETY DISORDER, UNSPECIFIED; F32.9 - MAJOR DEPRESSIVE DISORDER, SINGLE EPISODE, UNSPECIFIED Status: Chronic (6) DM2 (diabetes mellitus, type 2) Status: Chronic (7) GERD (gastroesophageal reflux disease) Code(s): K21.9 - GASTRO-ESOPHAGEAL REFLUX DISEASE WITHOUT ESOPHAGITIS Status: Chronic Qualifiers: Comment: (8) HTN (hypertension) Code(s): I10 - ESSENTIAL (PRIMARY) HYPERTENSION Status: Chronic Comment: on home HTN meds (9) Hyperlipidemia Code(s): E78.5 - HYPERLIPIDEMIA, UNSPECIFIED Status: Chronic Qualifiers: (10) Hypothyroidism Code(s): E03.9 - HYPOTHYROIDISM, UNSPECIFIED Status: Chronic Qualifiers: Comment: (11) Moderate tricuspid regurgitation by prior echocardiogram Code(s): I07.1 - RHEUMATIC TRICUSPID INSUFFICIENCY Status: Chronic (12) Obesity (BMI 30.0-34.9) Code(s): E66.9 - OBESITY, UNSPECIFIED Status: Chronic - Plan cont current plan of care, plan discussed w/ family * renal function continue to get worse * today I have provided patient education about future need for renal replacement therapy, pt is very anxious and currently in denial for need of HD * updated to * BP is better controlled * medication reviewed as below * symptomatic treatment. Review of Systems - Review of Systems ENT: negative: Ear Pain, Ear Discharge, Nose Pain, Nose Discharge, Nose Congestion, Mouth Pain, Mouth Swelling, Throat Pain, Throat Swelling, Other Respiratory: negative: Cough, Dry, Shortness of Breath, Hemoptysis, SOB with Excertion, Pleuritic Pain, Sputum, Wheezing Cardiovascular: negative: chest pain, palpitations, orthopnea, paroxysmal nocturnal dyspnea, edema, light headedness, other Gastrointestinal: negative: Nausea, Vomiting, Abdominal Pain, Diarrhea, Constipation, Melena, Hematochezia, Other Genitourinary: negative: Dysuria, Frequency, Incontinence, Hematuria, Retention , Other Musculoskeletal: negative: Neck Pain, Shoulder Pain, Arm Pain, Back Pain, Hand Pain, Leg Pain, Foot Pain, Other Skin: negative: Rash, Lesions, Fabian, Bruising, Other - Medications/Allergies Allergies/Adverse Reactions: Allergies Allergy/AdvReac Type Severity Reaction Status Date / Time Penicillins Allergy Severe Verified 04/06/18 00:50 cyclobenzaprine HCl AdvReac Verified 01/05/19 22:05 [From Flexeril] Medications: Current Medications Acetaminophen (Tylenol) 650 mg PO Q4H PRN PRN Reason: Headache/Fever/Mild Pain (1-3) Acetaminophen (Tylenol) 650 mg DC Q4H PRN PRN Reason: Headache/Fever/Mild Pain (1-3) Albumin Human (Albumin 25%) 25 gm IVPB 0400,1000,1600,2200 [facility] Stop: 01/08/19 04:01 Last Admin: 01/07/19 10:57 Dose: 25 gm Atorvastatin Calcium (Lipitor) 20 mg PO HS [facility] Last Admin: 01/06/19 21:42 Dose: 20 mg Bupropion HCl (Wellbutrin) 75 mg PO BID [facility] Last Admin: 01/07/19 09:55 Dose: 75 mg Carvedilol (Coreg) 25 mg PO 0900,1800 [facility] Last Admin: 01/07/19 09:56 Dose: 25 mg Cholecalciferol (Vitamin D3) 1,000 units PO DAILY [facility] Last Admin: 01/07/19 09:56 Dose: 1,000 units Citalopram Hydrobromide (Celexa) 20 mg PO DAILY [facility] Last Admin: 01/07/19 09:54 Dose: 20 mg Clonidine (Catapres) 0.1 mg PO Q4H PRN PRN Reason: BP>180/100 Last Admin: 01/06/19 11:47 Dose: 0.1 mg Clonidine (Catapres) 0.2 mg PO TID [facility] Last Admin: 01/07/19 09:56 Dose: 0.2 mg Dextrose/Water (Dextrose 50%) 25 gm SLOW IVP PRN PRN PRN Reason: Hypoglycemia Ferrous Sulfate (Feosol) 325 mg PO BID-[facility] Last Admin: 01/07/19 09:55 Dose: 325 mg Fish Oil (Fish Oil) 1,000 mg PO BID [facility] Last Admin: 01/07/19 09:55 Dose: 1,000 mg Glucagon (Glucagon) 1 mg IM PRN PRN PRN Reason: Hypoglycemia Heparin Sodium (Porcine) (Heparin) 5,000 units SC TID [facility] Last Admin: 01/07/19 09:56 Dose: 5,000 units Hydralazine HCl (Apresoline) 25 mg PO TID [facility] Last Admin: 01/07/19 09:55 Dose: 25 mg Dextrose/Water (D5w) 1,000 mls @ 0 mls/hr IV .Q0M PRN PRN Reason: Hypoglycemia Insulin Glargine 14 units/ (Miscellaneous Medication) 0.14 mls @ 0 mls/hr SC QAM [facility] Insulin Human Lispro (Humalog) 0 units SC .MILD SLIDING SCALE PRN PRN Reason: Mild Correctional Scale Last Admin: 01/06/19 17:40 Dose: 2 unit Isosorbide Mononitrate (Imdur Er) 30 mg PO DAILY [facility] Last Admin: 01/07/19 09:56 Dose: 30 mg Levothyroxine Sodium (Synthroid) 100 mcg PO 0600 [facility] Last Admin: 01/07/19 06:11 Dose: 100 mcg Multivitamins (Theragran) 1 tab PO DAILY [facility] Last Admin: 01/07/19 09:55 Dose: 1 tab Nifedipine (Procardia Xl) 60 mg PO DAILY [facility] Last Admin: 01/07/19 09:54 Dose: 60 mg Nitroglycerin (Nitro-Bid 2% Ointment) 0.5 inch TOP 0800,1600,2359 [facility] Last Admin: 01/07/19 09:55 Dose: 0.5 inch Ondansetron HCl (Zofran Odt) 4 mg PO Q6H PRN PRN Reason: Nausea/Vomiting Ondansetron HCl (Zofran) 4 mg IVP Q6H PRN PRN Reason: Nausea/Vomiting Pantoprazole Sodium (Protonix) 40 mg PO DAILY [facility] Last Admin: 01/07/19 09:56 Dose: 40 mg Sodium Chloride (Flush - Normal Saline) 10 ml IVF Q12HR [facility] Last Admin: 01/07/19 09:57 Dose: 10 ml Sodium Chloride (Flush - Normal Saline) 10 ml IVF PRN PRN PRN Reason: Saline Flush
[2019-01-07] MEDS: HumaLOG 300 UNITS/3 ML VIAL SC PRN ×2 (12:57→17:42)
[2019-01-07] MEDS: Torsemide 20 MG TAB PO SCH (18:49)
[2019-01-07] MEDS: Atorvastatin Calcium 20 MG TAB PO SCH (21:13)
[2019-01-08] MEDS ORDERED: Furosemide 40 MG/4 ML VIAL SLOW IVP SCH ×2 (01:30→10:15)
[2019-01-08] MEDS ORDERED: Gabapentin 300 MG CAP PO SCH (01:45)
[2019-01-08] MEDS: Levothyroxine Sodium 100 MCG TAB PO SCH (05:03)
[2019-01-08] MEDS: Albumin 25% 25 GM/100 ML BOT IVPB SCH (05:03)
[2019-01-08 05:14] LABS: #Eosinphils 0.1 thou/uL (0.0-0.7); #Lymphocytes 1.1 thou/uL (1.20-3.40); #Monocytes 0.5 thou/uL (0.11-0.59); #Neutrophils 1.8 thou/uL (1.40-6.50); %Eosinophils 2.7 % (0.0-10.0); %Lymphocytes 31.3 % (21.0-51.0); %Monocytes 14.3 % (0.0-10.0); %Neutrophils 50.6 % (42.0-75.0); Hemoglobin 7.8 g/dL (12.0-16.0); Mean Corpuscular HGB CONC 33.5 g/dL (32.0-36.0); Mean Corpuscular Hemoglobin 31.1 pg (27.0-31.0); Mean Corpuscular Volume 92.7 fL (78.0-98.0); Mean Platelet Volume 7.9 fL (7.4-10.4); Platelet Count 164 thou/uL (130-400); RBC Distribution Width 12.2 % (11.5-14.5); Red Blood Cell (RBC) Count 2.51 mill/uL (4.20-5.40); White Blood Cell (WBC) Count 3.6 thou/uL (4.8-10.8)
[2019-01-08 05:31] LABS: Anion Gap 14 mmol/L (10-20); BUN (Urea Nitrogen) 71 mg/dL (9.8-20.1); Calc. Creatinine Clearance 15 mL/min (70-130); Calcium 8.9 mg/dL (7.8-10.44); Carbon Dioxide 24 mmol/L (23-31); Chloride 101 mmol/L (98-107); Estimated GFR-MDRD 10; Glucose 235 mg/dL (83-110); Potassium 5.3 mmol/L (3.5-5.1); Sodium 134 mmol/L (136-145)
--- NOTE | 2019-01-08 08:00 | RAD ---
CHEST 1 VIEW: Date: 01/08/19 INDICATION: Fluid overload. COMPARISON: Prior exam dated 01/05/19. IMPRESSION: There is cardiomegaly and mild pulmonary vascular congestion and mild interstitial edema. No pleural effusion or pneumothorax is evident. No acute osseous abnormality is evident. The examination is not appreciably changed from the comparison. POS: BH
[2019-01-08] MEDS: Carvedilol 25 MG TAB PO SCH (09:31)
[2019-01-08] MEDS: NIFEdipine XL 60 MG TAB PO SCH (09:31)
[2019-01-08] MEDS: Ferrous Sulfate 325 MG TAB PO SCH ×2 (09:32→17:55)
[2019-01-08] MEDS: buPROPion 75 MG TAB PO SCH ×2 (09:32→21:44)
[2019-01-08] MEDS: hydrALAZINE 25 MG TAB PO SCH ×3 (09:32→22:42)
[2019-01-08] MEDS: Citalopram 20 MG TAB PO SCH (09:32)
[2019-01-08] MEDS: Multivit, Therapeutic 1 TAB PO SCH (09:32)
[2019-01-08] MEDS: Fish Oil 1,000 MG CAP PO SCH ×2 (09:32→21:44)
[2019-01-08] MEDS: cloNIDine 0.2 MG TAB PO SCH ×3 (09:33→22:42)
[2019-01-08] MEDS: Nitroglycerin 2% Ointment 1 INCH/1 GM Packet TOP SCH ×3 (09:34→23:09)
[2019-01-08] MEDS: Insulin Glargine 14 UNITS in Pre-Filled Syringe SC SCH (09:34)
[2019-01-08] MEDS: Heparin 5,000 UNITS/ML VIAL SC SCH ×3 (09:35→21:45)
--- NOTE | 2019-01-08 10:13 | PDOC.PN ---
- Subjective Encounter Start Date: 01/08/19 Encounter Start Time: 07:50 last night pt was hypoxic and had dyspnea, given lasix and required face mask oxygen this morning seems overall ok, bedside Patient seen and examined. - Objective Resuscitation Status - Order Detail: 01/05/19 21:18 Resuscitation Status Routine Resuscitation Status: FULL: Full Resuscitation MAR Reviewed: Yes Vital Signs & Weight: Vital Signs (12 hours) Temp Pulse Resp BP BP Pulse Ox 01/08/19 09:33 152/68 H 01/08/19 09:32 56 L 152/68 H 01/08/19 09:31 56 L 152/60 H 01/08/19 04:00 96 01/08/19 03:57 97.2 F L 56 L 13 121/61 99 01/08/19 00:00 58 L 18 152/80 H 92 L 01/07/19 23:44 60 18 155/78 H 01/07/19 23:20 58 L 01/07/19 23:19 155/69 H Weight Weight 186 lb I&O: 01/07/19 01/08/19 01/09/19 06:59 06:59 06:59 Intake Total 1080 980 Output Total 720 850 Balance 360 130 Result Diagrams: 01/08/19 04:54 01/08/19 04:54 Additional Labs: Accuchecks 01/08/19 01/07/19 01/07/19 05:38 20:30 17:12 POC Glucose 250 H 280 H 232 H 01/07/19 11:12 POC Glucose 282 H Radiology Reviewed by me: Yes (chest xray reviewed) EKG Reviewed by me: Yes (nsr) Phys Exam - Physical Examination Constitutional: NAD HEENT: PERRLA, moist MMs, sclera anicteric Neck: no JVD, supple Respiratory: no wheezing, no rhonchi coarse sound+ Cardiovascular: RRR, no significant murmur, no rub Gastrointestinal: soft, non-tender, no distention, positive bowel sounds obesity+ Musculoskeletal: no edema, pulses present Neurological: non-focal, normal sensation, moves all 4 limbs Lymphatic: no nodes Psychiatric: normal affect, A&O x 3 Skin: no rash, normal turgor Dx/Plan (1) Acute respiratory failure with hypoxia Code(s): J96.01 - ACUTE RESPIRATORY FAILURE WITH HYPOXIA Status: Acute (2) Acute on chronic diastolic ACC/AHA stage C congestive heart failure Code(s): I50.33 - ACUTE ON CHRONIC DIASTOLIC (CONGESTIVE) HEART FAILURE Status : Acute (3) Acute worsening of stage 4 chronic kidney disease Code(s): N18.4 - CHRONIC KIDNEY DISEASE, STAGE 4 (SEVERE) Status: Acute (4) Hypertensive urgency Code(s): I16.0 - HYPERTENSIVE URGENCY Status: Acute (5) Anemia, normocytic normochromic Code(s): D64.9 - ANEMIA, UNSPECIFIED Status: Chronic (6) Anxiety and depression Code(s): F41.9 - ANXIETY DISORDER, UNSPECIFIED; F32.9 - MAJOR DEPRESSIVE DISORDER, SINGLE EPISODE, UNSPECIFIED Status: Chronic (7) DM2 (diabetes mellitus, type 2) Status: Chronic (8) GERD (gastroesophageal reflux disease) Code(s): K21.9 - GASTRO-ESOPHAGEAL REFLUX DISEASE WITHOUT ESOPHAGITIS Status: Chronic Qualifiers: Comment: (9) HTN (hypertension) Code(s): I10 - ESSENTIAL (PRIMARY) HYPERTENSION Status: Chronic Comment: on home HTN meds (10) Hyperlipidemia Code(s): E78.5 - HYPERLIPIDEMIA, UNSPECIFIED Status: Chronic Qualifiers: (11) Hypothyroidism Code(s): E03.9 - HYPOTHYROIDISM, UNSPECIFIED Status: Chronic Qualifiers: Comment: (12) Moderate tricuspid regurgitation by prior echocardiogram Code(s): I07.1 - RHEUMATIC TRICUSPID INSUFFICIENCY Status: Chronic (13) Obesity (BMI 30.0-34.9) Code(s): E66.9 - OBESITY, UNSPECIFIED Status: Chronic - Plan cont current plan of care, plan discussed w/ family, respiratory therapy * add duoneb therapy * creatinine is still going up * nephrology following * may need dialysis soon * medication reviewed as below * symptomatic treatment * discussed with * repeat labs tomorrow. Review of Systems - Review of Systems Eyes: negative: Pain, Vision Change, Conjunctivae Inflammation, Eyelid Inflammation, Redness, Other ENT: negative: Ear Pain, Ear Discharge, Nose Pain, Nose Discharge, Nose Congestion, Mouth Pain, Mouth Swelling, Throat Pain, Throat Swelling, Other Respiratory: Shortness of Breath, SOB with Excertion. negative: Cough, Dry, Hemoptysis, Pleuritic Pain, Sputum, Wheezing Cardiovascular: negative: chest pain, palpitations, orthopnea, paroxysmal nocturnal dyspnea, edema, light headedness, other Gastrointestinal: negative: Nausea, Vomiting, Abdominal Pain, Diarrhea, Constipation, Melena, Hematochezia, Other Genitourinary: negative: Dysuria, Frequency, Incontinence, Hematuria, Retention , Other Musculoskeletal: negative: Neck Pain, Shoulder Pain, Arm Pain, Back Pain, Hand Pain, Leg Pain, Foot Pain, Other Skin: negative: Rash, Lesions, Fabian, Bruising, Other - Medications/Allergies Allergies/Adverse Reactions: Allergies Allergy/AdvReac Type Severity Reaction Status Date / Time Penicillins Allergy Severe Verified 04/06/18 00:50 cyclobenzaprine HCl AdvReac Verified 01/05/19 22:05 [From Flexeril] Medications: Current Medications Acetaminophen (Tylenol) 650 mg PO Q4H PRN PRN Reason: Headache/Fever/Mild Pain (1-3) Last Admin: 01/07/19 23:35 Dose: 650 mg Acetaminophen (Tylenol) 650 mg SC Q4H PRN PRN Reason: Headache/Fever/Mild Pain (1-3) Atorvastatin Calcium (Lipitor) 20 mg PO [facility] Last Admin: 01/07/19 21:13 Dose: 20 mg Bupropion HCl (Wellbutrin) 75 mg PO BID [facility] Last Admin: 01/08/19 09:32 Dose: 75 mg Carvedilol (Coreg) 25 mg PO 0900,1800 [facility] Last Admin: 01/08/19 09:31 Dose: 25 mg Cholecalciferol (Vitamin D3) 1,000 units PO DAILY [facility] Last Admin: 01/08/19 09:31 Dose: 1,000 units Citalopram Hydrobromide (Celexa) 20 mg PO DAILY [facility] Last Admin: 01/08/19 09:32 Dose: 20 mg Clonidine (Catapres) 0.1 mg PO Q4H PRN PRN Reason: BP>180/100 Last Admin: 01/06/19 11:47 Dose: 0.1 mg Clonidine (Catapres) 0.2 mg PO TID [facility] Last Admin: 01/08/19 09:33 Dose: 0.2 mg Dextrose/Water (Dextrose 50%) 25 gm SLOW IVP PRN PRN PRN Reason: Hypoglycemia Ferrous Sulfate (Feosol) 325 mg PO BID-[facility] Last Admin: 01/08/19 09:32 Dose: 325 mg Fish Oil (Fish Oil) 1,000 mg PO BID [facility] Last Admin: 01/08/19 09:32 Dose: 1,000 mg Furosemide (Lasix) 80 mg SLOW IVP 1015 [facility] Stop: 01/08/19 12:15 Glucagon (Glucagon) 1 mg IM PRN PRN PRN Reason: Hypoglycemia Heparin Sodium (Porcine) (Heparin) 5,000 units SC TID [facility] Last Admin: 01/08/19 09:35 Dose: 5,000 units Hydralazine HCl (Apresoline) 25 mg PO TID [facility] Last Admin: 01/08/19 09:32 Dose: 25 mg Dextrose/Water (D5w) 1,000 mls @ 0 mls/hr IV .Q0M PRN PRN Reason: Hypoglycemia Insulin Glargine 14 units/ (Miscellaneous Medication) 0.14 mls @ 0 mls/hr SC QAM [facility] Last Admin: 01/08/19 09:34 Dose: 0.14 mls Insulin Human Lispro (Humalog) 0 units SC .MILD SLIDING SCALE PRN PRN Reason: Mild Correctional Scale Last Admin: 01/07/19 17:42 Dose: 3 unit Isosorbide Mononitrate (Imdur Er) 30 mg PO DAILY [facility] Last Admin: 01/08/19 09:31 Dose: 30 mg Levothyroxine Sodium (Synthroid) 100 mcg PO 0600 [facility] Last Admin: 01/08/19 05:03 Dose: 100 mcg Multivitamins (Theragran) 1 tab PO DAILY [facility] Last Admin: 01/08/19 09:32 Dose: 1 tab Nifedipine (Procardia Xl) 60 mg PO DAILY [facility] Last Admin: 01/08/19 09:31 Dose: 60 mg Nitroglycerin (Nitro-Bid 2% Ointment) 0.5 inch TOP 0800,1600,2359 [facility] Last Admin: 01/08/19 09:34 Dose: 0.5 inch Ondansetron HCl (Zofran Odt) 4 mg PO Q6H PRN PRN Reason: Nausea/Vomiting Ondansetron HCl (Zofran) 4 mg IVP Q6H PRN PRN Reason: Nausea/Vomiting Pantoprazole Sodium (Protonix) 40 mg PO DAILY [facility] Last Admin: 01/08/19 09:31 Dose: 40 mg Sodium Chloride (Flush - Normal Saline) 10 ml IVF Q12HR [facility] Last Admin: 01/07/19 21:14 Dose: 10 ml Sodium Chloride (Flush - Normal Saline) 10 ml IVF PRN PRN PRN Reason: Saline Flush
--- NOTE | 2019-01-08 10:32 | PRG ---
DATE OF SERVICE: 01/08/2019 SUBJECTIVE: Ms. Canales is a 73-year-old white female, who was admitted for shortness of breath. She is being seen by the Renal Service for acute kidney injury on top of her chronic renal failure. We yesterday have decided to empirically volume replete with this patient. We gave her albumin. In addition, I stopped the torsemide. However, the patient developed some acute shortness of breath last night. Chest x-ray did not show any worsening CHF, but the pulmonary congestion is still there. For this reason, I have decided to stop the albumin infusion. I gave her a one time dose of Lasix 80 mg IV daily. I did explain to the patient and the that she may need dialytic intervention. They are interested in doing peritoneal dialysis if she goes to dialysis. For that reason, we will get a Cardiology consult for cardiac clearance. No other complaints today. Shortness of breath, slightly improved from last night. OBJECTIVE: VITAL SIGNS: Blood pressure 152/88, heart rate 56, and O2 saturation 96%, currently on Venturi mask. GENERAL: Awake, comfortable, not in overt distress. SKIN: Adequate turgor. HEENT: Slightly pale conjunctivae. Anicteric sclerae. NECK: No neck mass. No carotid bruits. No JVD. CHEST: No deformities. LUNGS: Decreased breath sounds. HEART: Normal sinus rhythm. No murmurs. No gallops. No rubs. ABDOMEN: Globular, soft, and nontender. No masses. EXTREMITIES: Trace edema. MEDICATIONS: Medications of January 08, 2019, was reviewed. LABORATORY DATA: Laboratories of January 08, 2019, white count 3.6 and hemoglobin 7.8. Sodium 134, potassium 5.3, chloride 101, carbon dioxide 24, BUN 71, creatinine 4.51, glucose 235, and calcium 8.9. ASSESSMENT AND PLAN: 1. Congestive heart failure - some exacerbation noted last night. We will give her a one time dose of Lasix 40 mg IV x1 dose. 2. Acute kidney injury/chronic renal failure, worsening renal dysfunction. I did have a long discussion with the and the about dialysis. They would like to think about it. They will make final decision tomorrow. There is no emergent indication to do any dialytic intervention at the present time. 3. Anemia on ferrous sulfate. We will start Epogen 7500 units subcu weekly. Overall agree with current management. Job ID: [id number]
[2019-01-08] MEDS ORDERED: Albumin 25% 25 GM/100 ML BOT IVPB SCH (11:00)
[2019-01-08] MEDS: HumaLOG 300 UNITS/3 ML VIAL SC PRN ×2 (11:07→17:57)
--- NOTE | 2019-01-08 14:38 | CON ---
DATE OF CONSULTATION: 01/08/2019 REASON FOR EVALUATION: Preoperative evaluation. HISTORY OF PRESENT ILLNESS: Ms. Padmini Canales is a pleasant 73-year-old woman with history of diastolic congestive heart failure. She had a stress test showing no evidence of any ischemia within the last year. The patient is admitted now with progressive volume overload and renal failure and will need hemodialysis and then peritoneal dialysis is planned as well. PAST MEDICAL HISTORY: 1. Hypertension. 2. Diastolic heart failure. MEDICATIONS: Prior to admission; 1. Iron. 2. Carvedilol 25 mg twice a day. 3. Nifedipine long-acting 60 mg a day. 4. Torsemide 40 mg a day. 5. Clonidine. 6. Atorvastatin. 7. Gabapentin. ALLERGIES: PENICILLIN AND CYCLOBENZAPRINE. REVIEW OF SYSTEMS: Positive for shortness of breath and difficulty breathing. Otherwise, review of systems negative other than documented in history and physical. SOCIAL HISTORY: No alcohol or tobacco. The spouse is very supportive. OBJECTIVE: VITAL SIGNS: Blood pressure was high 152/68 and now it is 113/58 and pulse 52 and regular. LUNGS: Noted to have some bibasilar rales. CARDIAC: Normal S1. Normal S2. ABDOMEN: Soft and nontender. EXTREMITIES: Mild edema. SKIN: Warm and dry. PSYCHIATRIC: Mood and affect normal. NEUROLOGIC: Grossly normal. PERTINENT LABORATORY DATA: Hemoglobin 7.8. Creatinine is up to 4.5, estimated GFR is 10, and potassium is 5.3. Echocardiogram shows normal left ventricular systolic function. ASSESSMENT: 1. End-stage renal disease, volume overload, refractory to diuretics. 2. Hypertension, now blood pressure is lower than normal for her. PLAN: 1. We will hold carvedilol this evening, then go to 12.5 mg twice a day. 2. May need to reduce the nifedipine dose. 3. I think she will need hemodialysis soon and we will need a temporary dialysis catheter. Job ID: [id number]
[2019-01-08] MEDS: Atorvastatin Calcium 20 MG TAB PO SCH (21:45)
[2019-01-09 05:21] LABS: #Eosinphils 0.1 thou/uL (0.0-0.7); #Lymphocytes 0.9 thou/uL (1.20-3.40); #Monocytes 0.5 thou/uL (0.11-0.59); #Neutrophils 3.2 thou/uL (1.40-6.50); %Basophils 0.2 % (0.0-1.0); %Eosinophils 2.4 % (0.0-10.0); %Monocytes 9.6 % (0.0-10.0); %Neutrophils 68.8 % (42.0-75.0); Hemoglobin 8.3 g/dL (12.0-16.0); Mean Corpuscular HGB CONC 34.3 g/dL (32.0-36.0); Mean Corpuscular Hemoglobin 31.5 pg (27.0-31.0); Mean Corpuscular Volume 91.8 fL (78.0-98.0); Mean Platelet Volume 8.3 fL (7.4-10.4); Platelet Count 196 thou/uL (130-400); RBC Distribution Width 12.2 % (11.5-14.5); Red Blood Cell (RBC) Count 2.63 mill/uL (4.20-5.40); White Blood Cell (WBC) Count 4.6 thou/uL (4.8-10.8)
[2019-01-09 05:24] LABS: Anion Gap 16 mmol/L (10-20); BUN (Urea Nitrogen) 80 mg/dL (9.8-20.1); Calc. Creatinine Clearance 13 mL/min (70-130); Calcium 9.2 mg/dL (7.8-10.44); Carbon Dioxide 22 mmol/L (23-31); Chloride 101 mmol/L (98-107); Estimated GFR-MDRD 8; Glucose 193 mg/dL (83-110); Potassium 4.7 mmol/L (3.5-5.1); Sodium 134 mmol/L (136-145)
[2019-01-09] MEDS: Levothyroxine Sodium 100 MCG TAB PO SCH (05:35)
[2019-01-09] MEDS: Ferrous Sulfate 325 MG TAB PO SCH ×2 (08:33→16:10)
[2019-01-09] MEDS: NIFEdipine XL 60 MG TAB PO SCH (08:33)
[2019-01-09] MEDS: buPROPion 75 MG TAB PO SCH ×2 (08:34→21:36)
[2019-01-09] MEDS: Citalopram 20 MG TAB PO SCH (08:34)
[2019-01-09] MEDS: hydrALAZINE 25 MG TAB PO SCH ×3 (08:34→21:36)
[2019-01-09] MEDS: Multivit, Therapeutic 1 TAB PO SCH (08:34)
[2019-01-09] MEDS: cloNIDine 0.2 MG TAB PO SCH ×3 (08:34→21:36)
[2019-01-09] MEDS: Fish Oil 1,000 MG CAP PO SCH ×2 (08:34→21:36)
[2019-01-09] MEDS: Heparin 5,000 UNITS/ML VIAL SC SCH ×3 (08:35→21:36)
[2019-01-09] MEDS: Insulin Glargine 14 UNITS in Pre-Filled Syringe SC SCH (08:35)
[2019-01-09] MEDS: Nitroglycerin 2% Ointment 1 INCH/1 GM Packet TOP SCH ×3 (08:35→23:53)
[2019-01-09] MEDS ORDERED: Carvedilol 6.25 MG TAB PO SCH (09:00)
--- NOTE | 2019-01-09 09:55 | PDOC.PN ---
- Subjective Encounter Start Date: 01/09/19 Encounter Start Time: 08:10 Patient seen and examined. No new complaints. No overnight events - Objective Resuscitation Status - Order Detail: 01/05/19 21:18 Resuscitation Status Routine Resuscitation Status: FULL: Full Resuscitation MAR Reviewed: Yes Vital Signs & Weight: Vital Signs (12 hours) Temp Pulse Resp BP BP BP Pulse Ox 01/09/19 08:34 66 173/74 H 01/09/19 08:33 66 01/09/19 07:40 98.5 F 66 17 173/74 H 96 01/09/19 03:34 98.6 F 76 22 H 154/70 H 92 L 01/09/19 01:44 71 18 95 01/08/19 23:33 67 144/67 H 01/08/19 22:42 69 160/67 H Weight Weight 187 lb 11.2 oz I&O: 01/08/19 01/09/19 01/10/19 06:59 06:59 06:59 Intake Total 980 740 Output Total 850 550 Balance 130 190 Result Diagrams: 01/09/19 04:44 01/09/19 04:44 Additional Labs: Accuchecks 01/09/19 01/08/19 01/08/19 05:19 20:42 17:08 POC Glucose 217 H 230 H 189 H 01/08/19 01/08/19 12:15 10:33 POC Glucose 349 H 235 H EKG Reviewed by me: Yes (nsr) Phys Exam - Physical Examination Constitutional: NAD HEENT: PERRLA, moist MMs, sclera anicteric Neck: no JVD, supple Respiratory: no wheezing, no rales, no rhonchi Cardiovascular: RRR, no significant murmur, no rub Gastrointestinal: soft, non-tender, no distention, positive bowel sounds obesity+ Musculoskeletal: no edema, pulses present Neurological: non-focal, normal sensation, moves all 4 limbs Lymphatic: no nodes Psychiatric: normal affect, A&O x 3 Skin: no rash, normal turgor Dx/Plan (1) Acute on chronic diastolic ACC/AHA stage C congestive heart failure Code(s): I50.33 - ACUTE ON CHRONIC DIASTOLIC (CONGESTIVE) HEART FAILURE Status : Acute (2) Acute worsening of stage 4 chronic kidney disease Code(s): N18.4 - CHRONIC KIDNEY DISEASE, STAGE 4 (SEVERE) Status: Acute (3) Hypertensive urgency Code(s): I16.0 - HYPERTENSIVE URGENCY Status: Acute (4) Anemia, normocytic normochromic Code(s): D64.9 - ANEMIA, UNSPECIFIED Status: Chronic (5) Anxiety and depression Code(s): F41.9 - ANXIETY DISORDER, UNSPECIFIED; F32.9 - MAJOR DEPRESSIVE DISORDER, SINGLE EPISODE, UNSPECIFIED Status: Chronic (6) DM2 (diabetes mellitus, type 2) Status: Chronic (7) GERD (gastroesophageal reflux disease) Code(s): K21.9 - GASTRO-ESOPHAGEAL REFLUX DISEASE WITHOUT ESOPHAGITIS Status: Chronic Qualifiers: Comment: (8) HTN (hypertension) Code(s): I10 - ESSENTIAL (PRIMARY) HYPERTENSION Status: Chronic Comment: on home HTN meds (9) Hyperlipidemia Code(s): E78.5 - HYPERLIPIDEMIA, UNSPECIFIED Status: Chronic Qualifiers: (10) Hypothyroidism Code(s): E03.9 - HYPOTHYROIDISM, UNSPECIFIED Status: Chronic Qualifiers: Comment: (11) Moderate tricuspid regurgitation by prior echocardiogram Code(s): I07.1 - RHEUMATIC TRICUSPID INSUFFICIENCY Status: Chronic (12) Obesity (BMI 30.0-34.9) Code(s): E66.9 - OBESITY, UNSPECIFIED Status: Chronic - Plan cont current plan of care, plan discussed w/ family * creatininie is increasing, she is on room air * medication reviewed as below * symptomatic treatment * Dr Ta to decide about starting HD * discussed with . Review of Systems - Review of Systems Constitutional: weakness. negative: fever, chills, sweats, malaise, other ENT: negative: Ear Pain, Ear Discharge, Nose Pain, Nose Discharge, Nose Congestion, Mouth Pain, Mouth Swelling, Throat Pain, Throat Swelling, Other Respiratory: SOB with Excertion Cardiovascular: negative: chest pain, palpitations, orthopnea, paroxysmal nocturnal dyspnea, edema, light headedness, other Gastrointestinal: negative: Nausea, Vomiting, Abdominal Pain, Diarrhea, Constipation, Melena, Hematochezia, Other Genitourinary: negative: Dysuria, Frequency, Incontinence, Hematuria, Retention , Other Musculoskeletal: negative: Neck Pain, Shoulder Pain, Arm Pain, Back Pain, Hand Pain, Leg Pain, Foot Pain, Other - Medications/Allergies Allergies/Adverse Reactions: Allergies Allergy/AdvReac Type Severity Reaction Status Date / Time Penicillins Allergy Severe Verified 04/06/18 00:50 cyclobenzaprine HCl AdvReac Verified 01/05/19 22:05 [From Flexeril] Medications: Current Medications Acetaminophen (Tylenol) 650 mg PO Q4H PRN PRN Reason: Headache/Fever/Mild Pain (1-3) Last Admin: 01/07/19 23:35 Dose: 650 mg Acetaminophen (Tylenol) 650 mg NE Q4H PRN PRN Reason: Headache/Fever/Mild Pain (1-3) Albuterol/Ipratropium (Duoneb) 3 ml NEB N4ON-CO PRN PRN Reason: SOB &/or Wheezing Last Admin: 01/09/19 01:44 Dose: 3 ml Atorvastatin Calcium (Lipitor) 20 mg PO HS [facility] Last Admin: 01/08/19 21:45 Dose: 20 mg Bupropion HCl (Wellbutrin) 75 mg PO BID [facility] Last Admin: 01/09/19 08:34 Dose: 75 mg [facility] Carvedilol (Coreg) 12.5 mg PO 0900 [facility] Stop: 01/09/19 11:00 Cholecalciferol (Vitamin D3) 1,000 units PO DAILY [facility] Last Admin: 01/09/19 08:33 Dose: 1,000 units Citalopram Hydrobromide (Celexa) 20 mg PO DAILY [facility] Last Admin: 01/09/19 08:34 Dose: 20 mg Clonidine (Catapres) 0.1 mg PO Q4H PRN PRN Reason: BP>180/100 Last Admin: 01/06/19 11:47 Dose: 0.1 mg Clonidine (Catapres) 0.2 mg PO TID [facility] Last Admin: 01/09/19 08:34 Dose: 0.2 mg Dextrose/Water (Dextrose 50%) 25 gm SLOW IVP PRN PRN PRN Reason: Hypoglycemia Ferrous Sulfate (Feosol) 325 mg PO BID[facility] Last Admin: 01/09/19 08:33 Dose: 325 mg Fish Oil (Fish Oil) 1,000 mg PO BID [facility] Last Admin: 01/09/19 08:34 Dose: 1,000 mg Glucagon (Glucagon) 1 mg IM PRN PRN PRN Reason: Hypoglycemia Heparin Sodium (Porcine) (Heparin) 5,000 units SC TID [facility] Last Admin: 01/09/19 08:35 Dose: 5,000 units Hydralazine HCl (Apresoline) 25 mg PO TID [facility] Last Admin: 01/09/19 08:34 Dose: 25 mg Dextrose/Water (D5w) 1,000 mls @ 0 mls/hr IV .Q0M PRN PRN Reason: Hypoglycemia Insulin Glargine 14 units/ (Miscellaneous Medication) 0.14 mls @ 0 mls/hr SC QAM [facility] Last Admin: 01/09/19 08:35 Dose: 0.14 mls Insulin Human Lispro (Humalog) 0 units SC .MILD SLIDING SCALE PRN PRN Reason: Mild Correctional Scale Last Admin: 01/08/19 17:57 Dose: 2 unit Isosorbide Mononitrate (Imdur Er) 30 mg PO DAILY [facility] Last Admin: 01/09/19 08:34 Dose: 30 mg Lactulose (Lactulose) 20 gm PO HS [facility] Levothyroxine Sodium (Synthroid) 100 mcg PO 0600 [facility] Last Admin: 01/09/19 05:35 Dose: 100 mcg Multivitamins (Theragran) 1 tab PO DAILY [facility] Last Admin: 01/09/19 08:34 Dose: 1 tab Nifedipine (Procardia Xl) 60 mg PO DAILY [facility] Last Admin: 01/09/19 08:33 Dose: 60 mg Nitroglycerin (Nitro-Bid 2% Ointment) 0.5 inch TOP 0800,1600,2359 [facility] Last Admin: 01/09/19 08:35 Dose: 0.5 inch Ondansetron HCl (Zofran Odt) 4 mg PO Q6H PRN PRN Reason: Nausea/Vomiting Ondansetron HCl (Zofran) 4 mg IVP Q6H PRN PRN Reason: Nausea/Vomiting Pantoprazole Sodium (Protonix) 40 mg PO DAILY [facility] Last Admin: 01/09/19 08:33 Dose: 40 mg Sodium Chloride (Flush - Normal Saline) 10 ml IVF Q12HR [facility] Last Admin: 01/08/19 22:46 Dose: 10 ml Sodium Chloride (Flush - Normal Saline) 10 ml IVF PRN PRN PRN Reason: Saline Flush
[2019-01-09] MEDS ORDERED: EPOETIN ALFA-EPBX (ESRD) 10,000 UNIT/ML VIAL SC SCH (10:30)
--- NOTE | 2019-01-09 10:53 | PRG ---
DATE OF SERVICE: 01/09/2019 SUBJECTIVE: Ms. Canales is a 73-year-old white female, who was admitted for shortness of breath from pulmonary edema. She has progressive azotemia. Renal function has been worsening. Again, I had long discussion with the patient and the . Due to the worsening renal dysfunction and CHF, we have decided to proceed with dialysis. Surgical consult will be done. They prefer to do PD. Again, the patient had an episode of shortness of breath last night. OBJECTIVE: VITAL SIGNS: Blood pressure is 173/74, heart rate 66, respiratory rate 17, temperature 98.5, and pulse ox 96%. GENERAL: Noted to be awake, alert, comfortable, obese. SKIN: Adequate turgor. HEENT: She has a slightly pale conjunctivae. Anicteric sclerae. No neck mass. No carotid bruits. No JVD. CHEST: No deformities. LUNGS: Decreased breath sounds. HEART: Normal sinus rhythm. No murmur. No gallops. No rubs. ABDOMEN: Globular, soft, nontender. No masses. EXTREMITIES: Positive for edema, but no deformities. MEDICATIONS: Medications of January 09, 2019, reviewed. LABORATORY DATA: Laboratories of January 09, 2019, white count 4.6, hemoglobin 8.3, sodium 134, potassium 4.7, chloride 101, carbon dioxide 22, BUN 80, creatinine 5.02, GFR 8 mL/minute, calcium 9.2. ASSESSMENT AND PLAN: 1. Chronic renal failure from diabetic nephropathy, worsening renal dysfunction. The patient is also noted to be in CHF. We will proceed with hemodialysis. I have consulted surgery for placement of a PD catheter and a tunneled dialysis catheter. Initiate dialysis once the access is available. 2. CHF. Continue salt restriction. Lasix 80 mg IV daily will be ordered. 3. Anemia. Continue current iron supplementation as well as start Epogen if needed with this patient. 4. Overall, agree with current management. Job ID: [id number]
--- NOTE | 2019-01-09 11:21 | ULT ---
Exam: Vein mapping for dialysis access HISTORY: End-stage renal disease. TECHNIQUE: Multiplanar grayscale and color Doppler images were obtained in a bilateral upper extremit y venous ultrasound. Spectral analysis of the Doppler waveforms of the vessels were performed. FINDINGS: The bilateral internal jugular veins and subclavian veins are patent without evidence of th rombus. Right brachial artery 4.2 mm Right radial artery 1.4 mm Right ulnar artery 2.4 mm Left brachial artery 3.9 mm Left radial artery 1.9 mm Left ulnar artery 2.1 mm RIGHT CEPHALIC VEIN in millimeters 4.5 -- Shoulder 4.3 -- Upper arm 4.6 -- Mid upper arm 3.1-- Just proximal to the elbow 2.5 -- Just distal to the elbow 2.6 -- Forearm 1.5 -- Wrist RIGHT BASILIC VEIN in millimeters 4.7 -- Shoulder 4.1 -- Upper arm 3.9 -- Mid upper arm 4.8 -- Just proximal to the elbow 1.6 -- Just distal to the elbow 2.0 -- Forearm 2.2 -- Wrist LEFT CEPHALIC VEIN in millimeters 4.2 -- Shoulder 4.1 -- Upper arm 4.0 -- Mid upper arm 3.5 -- Just proximal to the elbow 1.5 -- Just distal to the elbow 2.1 -- Forearm 2.6 -- Wrist LEFT BASILIC VEIN in millimeters 4.5 -- Shoulder 4.5 -- Upper arm 5.3 -- Mid upper arm 3.7 -- Just proximal to the elbow 1.6 -- Just distal to the elbow 1.6 -- Forearm 1.5 -- Wrist IMPRESSION: Vein mapping for dialysis access as above
[2019-01-09] MEDS ORDERED: guaiFENesin 100 MG/5 ML UDCUP PO PRN (12:08)
[2019-01-09] MEDS: HumaLOG 300 UNITS/3 ML VIAL SC PRN (12:20)
[2019-01-09] MEDS: Diabetic Tussin 200 MG/10 ML UDCUP PO PRN (13:03)
--- NOTE | 2019-01-09 14:41 | HP ---
HISTORY OF PRESENT ILLNESS: A 73-year-old female, morbidly obese, diabetic, hypertension with end-stage renal disease, followed by Dr. Ta, who I have been asked to place hemodialysis catheter. She has been seeing Dr. Lockhart, noted to have a normal cardiac stress test last year. It is felt that she has fluid overload from renal disease without any significant coronary artery disease. Plan is to place hemodialysis catheter tomorrow, initiate dialysis, and later in the week plan laparoscopic peritoneal dialysis catheter and left arm fistula. She has had an IV. Antecubital fossa has been removed. Ultrasound vein mapping revealed good veins both arms and states she is right-handed. We will attempt left arm fistula. She may need a staged procedure, and morbid obesity may delay dialysis access for hemodialysis, but hopefully peritoneal dialysis can be initiated in the next few weeks. As an outpatient, she should see the peritoneal dialysis nurse in 3 to 7 days after placement of the peritoneal dialysis catheter to flush the catheter, which is imperative and initiate training. ALLERGIES: PENICILLIN AND CYCLOBENZAPRINE. SOCIAL HISTORY: Tobacco, none. Alcohol, none. MEDICATIONS: 1. Hydralazine. 2. Clonidine. 3. Celexa. 4. Atorvastatin. 5. Insulin. 6. Wellbutrin. 7. Magnesium. 8. Levothyroxine. 9. Carvedilol. 10. Torsemide. 11. Omeprazole. 12. Gabapentin. 13. Iron sulfate. 14. Biotin. PAST SURGICAL HISTORY: 1. Partial thyroidectomy that I performed. 2. Total abdominal hysterectomy. 3. Bilateral salpingo-oophorectomy. 4. Appendectomy. 5. Open cholecystectomy. PAST MEDICAL HISTORY: 1. Hypertension. 2. Diabetes. 3. Chronic kidney disease. 4. End-stage renal disease. REVIEW OF SYSTEMS: Noncontributory except as noted above. She has had colonoscopies in the past. Last colonoscopy performed was in [address] Audie Christiansen, where tubular adenoma was removed. Pathology and hospital reports, ureteral stone in the past. Review of her remote past records reveals that Dr. Lowry performed cystoscopy and renal stone removal on March 05, 2006. PHYSICAL EXAMINATION: VITAL SIGNS: Height 5 feet 4 inches, weight 187 pounds, 32 BMI, temperature 98.5, heart rate 67, and blood pressure 141/64. HEAD, EARS, EYES, NOSE, AND THROAT: Unremarkable. LUNGS: Clear to auscultation. CARDIAC: Regular rate and rhythm without murmur or gallop. ABDOMEN: Soft, obese, and nontender. No hernias. Open cholecystectomy. Right subcostal scar. Suprapubic Pfannenstiel incision. EXTREMITIES: Unremarkable. LABORATORY DATA: White count 4 and hemoglobin 8.3. Basic metabolic profile normal. Potassium 4.7, sodium 134, creatinine 5, and GFR 8. Accu-Cheks 180 to 342. ASSESSMENT AND PLAN: 1. End-stage renal disease, need dialysis access. We will plan placement of hemodialysis catheter tomorrow, n.p.o. after midnight, hemodialysis catheter placement tomorrow afternoon, initiate dialysis, and then mid to later week, we will plan laparoscopic PD catheter and left arm fistula. Avoid IV access above the wrist. Preserve veins for dialysis access. 2. Morbid obesity, metabolic syndrome. 3. Diabetes mellitus. 4. Hypertension. 5. Hypercholesterolemia. 6. History of urolithiasis. 7. Insulin-dependent diabetes. Job ID: [id number]
[2019-01-09] MEDS: Carvedilol 6.25 MG TAB PO SCH (16:11)
[2019-01-09] MEDS ORDERED: Furosemide 100 MG/10 ML VIAL SLOW IVP SCH (21:15)
[2019-01-09] MEDS: Atorvastatin Calcium 20 MG TAB PO SCH (21:36)
[2019-01-10] MEDS: Diabetic Tussin 200 MG/10 ML UDCUP PO PRN ×2 (01:30→23:42)
[2019-01-10 05:41] LABS: #Eosinphils 0.1 thou/uL (0.0-0.7); #Lymphocytes 1.5 thou/uL (1.20-3.40); #Monocytes 0.5 thou/uL (0.11-0.59); #Neutrophils 3.3 thou/uL (1.40-6.50); %Basophils 0.3 % (0.0-1.0); %Lymphocytes 27.5 % (21.0-51.0); %Monocytes 9.7 % (0.0-10.0); %Neutrophils 60.5 % (42.0-75.0); Hemoglobin 8.6 g/dL (12.0-16.0); Mean Corpuscular HGB CONC 33.7 g/dL (32.0-36.0); Mean Corpuscular Hemoglobin 31.4 pg (27.0-31.0); Mean Corpuscular Volume 93.4 fL (78.0-98.0); Mean Platelet Volume 7.9 fL (7.4-10.4); Platelet Count 184 thou/uL (130-400); RBC Distribution Width 12.3 % (11.5-14.5); Red Blood Cell (RBC) Count 2.73 mill/uL (4.20-5.40); White Blood Cell (WBC) Count 5.5 thou/uL (4.8-10.8)
[2019-01-10] MEDS: Levothyroxine Sodium 100 MCG TAB PO SCH (05:49)
[2019-01-10 05:57] LABS: Anion Gap 16 mmol/L (10-20); BUN (Urea Nitrogen) 84 mg/dL (9.8-20.1); Calc. Creatinine Clearance 13 mL/min (70-130); Calcium 9.8 mg/dL (7.8-10.44); Carbon Dioxide 24 mmol/L (23-31); Chloride 103 mmol/L (98-107); Estimated GFR-MDRD 8; Glucose 149 mg/dL (83-110); Sodium 138 mmol/L (136-145)
[2019-01-10] MEDS: Insulin Glargine 14 UNITS in Pre-Filled Syringe SC SCH (08:53)
[2019-01-10] MEDS: Heparin 5,000 UNITS/ML VIAL SC SCH ×3 (08:53→20:16)
[2019-01-10] MEDS: Carvedilol 6.25 MG TAB PO SCH ×2 (08:54→16:24)
[2019-01-10] MEDS: Ferrous Sulfate 325 MG TAB PO SCH ×2 (08:54→17:01)
[2019-01-10] MEDS: Multivit, Therapeutic 1 TAB PO SCH (08:55)
[2019-01-10] MEDS: Citalopram 20 MG TAB PO SCH (08:55)
[2019-01-10] MEDS: NIFEdipine XL 60 MG TAB PO SCH (08:55)
[2019-01-10] MEDS: Fish Oil 1,000 MG CAP PO SCH ×2 (08:55→20:16)
[2019-01-10] MEDS: cloNIDine 0.2 MG TAB PO SCH ×3 (08:56→20:16)
[2019-01-10] MEDS: Nitroglycerin 2% Ointment 1 INCH/1 GM Packet TOP SCH ×3 (08:56→23:42)
[2019-01-10] MEDS: hydrALAZINE 25 MG TAB PO SCH ×3 (08:56→20:15)
[2019-01-10] MEDS: buPROPion 75 MG TAB PO SCH ×2 (08:56→20:15)
[2019-01-10] MEDS ORDERED: Famotidine/PF 20 mg/2ml Vial ONE (09:26)
[2019-01-10] MEDS ORDERED: PROPOFOL 0 ML ONE (09:26)
[2019-01-10] MEDS ORDERED: Propofol 500 MG/50 ML VIAL ONE (09:26)
--- NOTE | 2019-01-10 09:39 | PRG ---
DATE OF SERVICE: 01/10/2019 SERVICE: Renal Medicine. SUBJECTIVE: Ms. Canales is 73-year-old white female who was admitted for CHF. She was seen by the Renal Service due to the worsening renal dysfunction. We had a long discussion about initiating dialysis. The patient has agreed including the . Last night, she fell down; however, she did not lose any consciousness. No episodes of shortness of breath. Please note, she received a one time dose of Lasix last night. OBJECTIVE: VITAL SIGNS: Blood pressure 155/76, heart rate 68, respiratory rate 19, temperature 97.8, and pulse ox 93%. GENERAL: Awake, alert, comfortable, sitting, not in distress. SKIN: Adequate turgor. HEENT: Slightly pale conjunctivae. Anicteric sclerae. NECK: No neck mass. No carotid bruits. No JVD. CHEST: No deformities. LUNGS: Clear breath sounds. HEART: Normal sinus rhythm. No murmurs, gallops, or rubs. ABDOMEN: Globular, soft, nontender. No masses. EXTREMITIES: Positive for edema. MEDICATIONS: Medications of January 10, 2019, were reviewed. LABORATORY DATA: Laboratories of January 10, 2019, white count 5.5 and hemoglobin 8.6. Sodium 138, potassium 5, chloride 103, carbon dioxide 24, BUN 84, creatinine 5.22, glucose 149, and calcium 9.8. ASSESSMENT AND PLAN: 1. Chronic renal failure, worsening renal dysfunction. We will initiate the hemodialysis once dialysis access is placed. The plan is to place a cuffed hemodialysis catheter, and then in a few days, a PD catheter will be placed. We will try to optimize the patient hemodynamically prior to the planned peritoneal dialysis placement. 2. Anemia, continuing weekly Epogen. 3. Congestive heart failure, clinically improving with Lasix. Continue current management. Recheck basic metabolic panel and CBC in a.m. Job ID: [id number]
[2019-01-10] MEDS ORDERED: Heparin 10,000 UNITS/1 ML VIAL ONE (11:38)
[2019-01-10] MEDS ORDERED: Lidocaine 2% PF 5 ML VIAL ONE (11:38)
[2019-01-10] MEDS ORDERED: Bupivacaine HCl 0.5%/Epinephrine 1:200,000/PF 30 ml Vial ONE (11:38)
--- NOTE | 2019-01-10 11:42 | CT ---
PRELIMINARY REPORT/[facility]/EMERGENCY AFTER HOURS PROCEDURE: EXAM: CT Head Without Contrast EXAM DATE/TIME: 01/10/2019 3:13 AM CLINICAL HISTORY: 73 years old, female; Injury or trauma; Initial encounter; Concussion / head injury; Patient HX: PT. Fell and hit head @ approximately 0245, 01/10/2019. C/O headache, denies loc, fall was not witnessed. TECHNIQUE: Imaging protocol: Axial computed tomography images of the head without contrast. COMPARISON: No relevant prior studies available. FINDINGS: Brain: Scattered areas of hypoattenuation, likely chronic small vessel ischemic change, demyelination , or gliosis. Old lacunar infarctions within the basal ganglia bilaterally. No mass, hemorrhage, or acute infarction. Ventricles: Normal. Bones/joints: Normal. Sinuses: Right posterior ethmoid sinus disease. Mastoid air cells: Normal as visualized. Soft tissues: Unremarkable. Vasculature: Atherosclerotic vascular calcifications. IMPRESSION: No acute intracranial abnormality. Thank you for allowing us to participate in the care of your patient. Dictated and Authenticated by: Ulises Carcamo MD 01/10/2019 3:25 AM Central Time ([place] & [place]) FINAL REPORT CT BRAIN WITHOUT CONTRAST: I agree with the preliminary report given by Dr. Ulises Carcamo of [facility]. POS: [facility]
[2019-01-10] MEDS ORDERED: Levofloxacin 500 mg/D5W 100 ml Premix Bag ONE (12:15)
[2019-01-10] MEDS ORDERED: Promethazine HCl 25 MG/ML VIAL IM PRN (12:40)
[2019-01-10] MEDS ORDERED: Promethazine HCl 25 MG/ML VIAL SLOW IVP PRN (12:40)
[2019-01-10] MEDS ORDERED: Ondansetron HCl/PF 4 MG/2 ML Vial IVP PRN (12:40)
--- NOTE | 2019-01-10 13:27 | OP ---
DATE OF PROCEDURE: 01/10/2019 PREOPERATIVE DIAGNOSIS: End-stage renal disease, in need of dialysis access and poor IV access with prior antecubital IV removed. ANESTHESIA: TIVA, local of 0.5% Marcaine with epinephrine 30 mL. PROCEDURE PERFORMED: Placement of left internal jugular central line and right internal jugular cuffed tunneled hemodialysis catheter, AngioDynamics pre-curved, ultrasound fluoroscopy used for placement. PLAN: Today is and we will plan on Thursday laparoscopic PD catheter and left arm fistula after the patient undergoes 3 dialysis sessions. DESCRIPTION OF PROCEDURE: The patient was taken to the operating room where under intravenous sedation, neck and chest were prepared with ChloraPrep and draped in routine fashion. Local anesthetic mixture was infiltrated into the skin and subcutaneous tissue about the operative site. Using ultrasound guidance, the right and left internal jugular veins were cannulated with trocar catheters and a left internal jugular vein triple-lumen catheter was placed using the Seldinger technique, removing the J-wire, securing the catheter with 3-0 nylon sutures and sterile dressing applied. Each port aspirated blood and flushed with saline solution. A stab incision was made over the J-wire entry site in the right side of the neck and the planned exit site of right chest. Using the tunneling device, the pre-curved AngioDynamics tunneled between the two incisions, placed the fabric cuff into the skin exit site and secured with 2 interrupted sutures of 3-0 nylon. Small and medium sized dilators were placed over the J-wire and internal jugular vein removed. Dilator and Peel-Away sheath placed over the J-wire in the superior vena cava and the dilator and J-wire were removed, catheter was placed through the Peel-Away sheath and Peel-Away sheath removed. Catheter was noted to be in good position as well as the central line on fluoroscopic visualization. Platysma was approximated with 4-0 Monocryl, skin with subdermal 4-0 Monocryl and [place] glue applied. Each port aspirated blood and flushed with saline solution and heparinized saline solution with 1000 units of heparin per mL indicating the volume of the port. Job ID: [id number]
[2019-01-10] MEDS ORDERED: Sodium Chloride 0.9% 10 ML ONE (13:49)
--- NOTE | 2019-01-10 13:49 | RAD ---
PORTABLE CHEST 1 VIEW: Date: 01/10/19 Time: 1324 hours HISTORY: Central line placement. FINDINGS/IMPRESSION: There has been interval placement of a left internal jugular central venous catheter with tip in the projection of the SVC and the placement of a right-sided dialysis catheter with tip in the position o f the cavoatrial junction since earlier exam at 0058 hours from the same date. No pneumothoraces are seen. The heart size is enlarged. No focal areas of consolidation or pleural effusions are identified . There is no evidence of mikal pulmonary edema. Postop changes of right rotator cuff repair are pres ent. POS: [facility]
[2019-01-10] MEDS: HumaLOG 300 UNITS/3 ML VIAL SC PRN (14:16)
--- NOTE | 2019-01-10 14:25 | PDOC.PN ---
- Subjective Encounter Start Date: 01/10/19 Encounter Start Time: 08:20 Pt seen for followup re: acute kidney injury. Denies chest pain, shortness of breath, fevers or chills. - Objective Resuscitation Status - Order Detail: 01/05/19 21:18 Resuscitation Status Routine Resuscitation Status: FULL: Full Resuscitation Vital Signs & Weight: Vital Signs (12 hours) Temp Pulse Pulse Resp Resp BP BP 01/10/19 14:02 97.5 F L 51 L 18 01/10/19 08:56 162/69 H 01/10/19 07:59 97.8 F 68 19 01/10/19 04:00 97.7 F 63 22 H 01/10/19 03:00 68 20 01/10/19 02:52 68 20 194/75 H BP BP BP Pulse Ox Pulse Ox 01/10/19 14:02 111/55 L 97 01/10/19 08:56 01/10/19 07:59 155/76 H 93 L 01/10/19 04:00 187/79 H 93 L 01/10/19 03:00 194/75 H 95 01/10/19 02:52 95 Weight Weight 188 lb 11.2 oz I&O: 01/09/19 01/10/19 01/11/19 06:59 06:59 06:59 Intake Total 740 740 Output Total 550 1750 Balance 190 -1010 Result Diagrams: 01/10/19 05:21 01/10/19 05:21 Additional Labs: Accuchecks 01/10/19 01/10/19 01/10/19 13:37 10:49 05:45 POC Glucose 203 H 190 H 183 H 01/09/19 01/09/19 20:20 16:50 POC Glucose 158 H 151 H Phys Exam - Physical Examination Constitutional: NAD HEENT: moist MMs Neck: supple Respiratory: clear to auscultation bilateral Cardiovascular: RRR Gastrointestinal: soft Neurological: moves all 4 limbs Psychiatric: normal affect Dx/Plan (1) Acute worsening of stage 4 chronic kidney disease Code(s): N18.4 - CHRONIC KIDNEY DISEASE, STAGE 4 (SEVERE) Status: Acute Comment: Pt to have HD catheter placed for dialysis (2) DM2 (diabetes mellitus, type 2) Status: Chronic Comment: continue accuchecks, insulin sliding scale (3) GERD (gastroesophageal reflux disease) Code(s): K21.9 - GASTRO-ESOPHAGEAL REFLUX DISEASE WITHOUT ESOPHAGITIS Status: Chronic Qualifiers: Comment: stable (4) HTN (hypertension) Code(s): I10 - ESSENTIAL (PRIMARY) HYPERTENSION Status: Chronic Comment: monitor vital signs, titrate antihypertensives as needed (5) Hyperlipidemia Code(s): E78.5 - HYPERLIPIDEMIA, UNSPECIFIED Status: Chronic Qualifiers: Comment: stable (6) Hypothyroidism Code(s): E03.9 - HYPOTHYROIDISM, UNSPECIFIED Status: Chronic Qualifiers: Comment: stable (7) Anxiety and depression Code(s): F41.9 - ANXIETY DISORDER, UNSPECIFIED; F32.9 - MAJOR DEPRESSIVE DISORDER, SINGLE EPISODE, UNSPECIFIED Status: Chronic Comment: mild, stable - Plan * . Review of Systems - Review of Systems Respiratory: negative: Cough, Shortness of Breath, SOB with Excertion, Pleuritic Pain, Wheezing Cardiovascular: negative: chest pain, palpitations, orthopnea, paroxysmal nocturnal dyspnea, edema, light headedness - Medications/Allergies Allergies/Adverse Reactions: Allergies Allergy/AdvReac Type Severity Reaction Status Date / Time Penicillins Allergy Severe Verified 04/06/18 00:50 cyclobenzaprine HCl AdvReac Verified 01/05/19 22:05 [From Flexeril] Medications: Current Medications Acetaminophen (Tylenol) 1,000 mg PO Q6H PRN PRN Reason: Moderate to Severe Pain (6-10) Albuterol/Ipratropium (Duoneb) 3 ml NEB [id number] PRN PRN Reason: SOB &/or Wheezing Last Admin: 01/09/19 01:44 Dose: 3 ml Atorvastatin Calcium (Lipitor) 20 mg PO HS [facility] Last Admin: 01/09/19 21:36 Dose: 20 mg Bupropion HCl (Wellbutrin) 75 mg PO BID [facility] Last Admin: 01/10/19 08:56 Dose: 75 mg Carvedilol (Coreg) 12.5 mg PO BID-[facility] Last Admin: 01/10/19 08:54 Dose: 12.5 mg Cholecalciferol (Vitamin D3) 1,000 units PO DAILY [facility] Last Admin: 01/10/19 08:55 Dose: 1,000 units Citalopram Hydrobromide (Celexa) 20 mg PO DAILY [facility] Last Admin: 01/10/19 08:55 Dose: 20 mg Clonidine (Catapres) 0.1 mg PO Q4H PRN PRN Reason: BP>180/100 Last Admin: 01/06/19 11:47 Dose: 0.1 mg Clonidine (Catapres) 0.2 mg PO TID [facility] Last Admin: 01/10/19 08:56 Dose: 0.2 mg Dextrose/Water (Dextrose 50%) 25 gm SLOW IVP PRN PRN PRN Reason: Hypoglycemia Fentanyl (Pacu-Sublimaze) 50 mcg SLOW IVP Q10MIN PRN PRN Reason: Moderate to Severe Pain (6-10) Stop: 01/10/19 15:40 Ferrous Sulfate (Feosol) 325 mg PO BID-[facility] Last Admin: 01/10/19 08:54 Dose: 325 mg Fish Oil (Fish Oil) 1,000 mg PO BID [facility] Last Admin: 01/10/19 08:55 Dose: 1,000 mg Glucagon (Glucagon) 1 mg IM PRN PRN PRN Reason: Hypoglycemia Guaifenesin (Robitussin Sf) 100 mg PO Q4H PRN PRN Reason: Cough Last Admin: 01/10/19 01:30 Dose: 100 mg Heparin Sodium (Porcine) (Heparin) 5,000 units SC TID [facility] Last Admin: 01/10/19 08:53 Dose: Not Given Hydralazine HCl (Apresoline) 25 mg PO TID [facility] Last Admin: 01/10/19 08:56 Dose: 25 mg Dextrose/Water (D5w) 1,000 mls @ 0 mls/hr IV .Q0M PRN PRN Reason: Hypoglycemia Insulin Glargine 14 units/ (Miscellaneous Medication) 0.14 mls @ 0 mls/hr SC QAM [facility] Last Admin: 01/10/19 08:53 Dose: Not Given Levofloxacin 500 mg/ Device 100 mls @ 100 mls/hr IVPB ONCALL-OR [facility] Insulin Human Lispro (Humalog) 0 units SC .MILD SLIDING SCALE PRN PRN Reason: Mild Correctional Scale Last Admin: 01/09/19 12:20 Dose: 5 unit Isosorbide Mononitrate (Imdur Er) 30 mg PO DAILY [facility] Last Admin: 01/10/19 08:55 Dose: 30 mg Lactulose (Lactulose) 20 gm PO [facility] Last Admin: 01/09/19 21:37 Dose: Not Given Levothyroxine Sodium (Synthroid) 100 mcg PO 0600 [facility] Last Admin: 01/10/19 05:49 Dose: 100 mcg Multivitamins (Theragran) 1 tab PO DAILY [facility] Last Admin: 01/10/19 08:55 Dose: 1 tab Nifedipine (Procardia Xl) 60 mg PO DAILY [facility] Last Admin: 01/10/19 08:55 Dose: 60 mg Nitroglycerin (Nitro-Bid 2% Ointment) 0.5 inch TOP 0800,1600,2359 [facility] Last Admin: 01/10/19 08:56 Dose: 0.5 inch Ondansetron HCl (Zofran Odt) 4 mg PO Q6H PRN PRN Reason: Nausea/Vomiting Ondansetron HCl (Zofran) 4 mg IVP Q6H PRN PRN Reason: Nausea/Vomiting Ondansetron HCl (Pacu-Zofran) 4 mg IVP ONE PRN PRN Reason: Nausea/Vomiting Stop: 01/10/19 15:40 Pantoprazole Sodium (Protonix) 40 mg PO DAILY [facility] Last Admin: 01/10/19 08:56 Dose: 40 mg Promethazine HCl (Pacu-Phenergan) 6.25 mg SLOW IVP ONE PRN PRN Reason: Nausea/Vomiting Stop: 01/10/19 15:40 Promethazine HCl (Pacu-Phenergan) 6.25 mg IM ONE PRN PRN Reason: Nausea/Vomiting Stop: 01/10/19 15:40 Sodium Chloride (Flush - Normal Saline) 10 ml IVF Q12HR [facility] Last Admin: 01/10/19 08:56 Dose: 10 ml Sodium Chloride (Flush - Normal Saline) 10 ml IVF PRN PRN PRN Reason: Saline Flush Tramadol HCl (Ultram) 50 mg PO Q6H PRN PRN Reason: Mild-Moderate Pain (1-5)
[2019-01-10] MEDS ORDERED: Heparin 10,000 UNITS/ 10 ML VIAL ONE (15:00)
[2019-01-10 15:13] LABS: Hep B Core Total Ab Non-Reactive (NonReactive); Hep B Core Total Index 0.08 S/CO (0-0.79)
[2019-01-10 15:14] LABS: Hep B Surf Ag Non-Reactive S/CO (NonReactive)
[2019-01-10 15:15] LABS: HBSAB Concentration 0.67 mIU/mL; HBSAg Index 0.29 S/CO (0-0.99); Hep B Surf AB Non-Reactive (NonReactive); Hep C IgG Ab Non-Reactive (NonReactive); Hep C Index 0.05 S/CO (0-0.79)
[2019-01-10] MEDS ORDERED: Lidocaine 1% PF 5 ML VIAL ONE (16:47)
[2019-01-10] MEDS ORDERED: PROPOFOL 200 MG/20 ML VIAL ONE (16:47)
[2019-01-10] MEDS ORDERED: Ondansetron PF 4 MG/2 ML Vial ONE (16:47)
[2019-01-10] MEDS: Atorvastatin Calcium 20 MG TAB PO SCH (20:16)
[2019-01-10] MEDS: Acetaminophen 500 MG TAB PO PRN (20:28)
[2019-01-10] MEDS: traMADol HCl 50 MG TAB PO PRN (23:42)
[2019-01-11] MEDS: Levothyroxine Sodium 100 MCG TAB PO SCH (06:10)
[2019-01-11 06:27] LABS: #Eosinphils 0.1 thou/uL (0.0-0.7); #Monocytes 0.6 thou/uL (0.11-0.59); #Neutrophils 3.7 thou/uL (1.40-6.50); %Basophils 0.4 % (0.0-1.0); %Eosinophils 2.3 % (0.0-10.0); %Lymphocytes 17.4 % (21.0-51.0); %Monocytes 11.6 % (0.0-10.0); %Neutrophils 68.3 % (42.0-75.0); Hemoglobin 8.5 g/dL (12.0-16.0); Mean Corpuscular Hemoglobin 32.6 pg (27.0-31.0); Mean Corpuscular Volume 93.2 fL (78.0-98.0); Mean Platelet Volume 8.7 fL (7.4-10.4); Platelet Count 172 thou/uL (130-400); RBC Distribution Width 12.2 % (11.5-14.5); Red Blood Cell (RBC) Count 2.61 mill/uL (4.20-5.40); White Blood Cell (WBC) Count 5.5 thou/uL (4.8-10.8)
[2019-01-11 06:51] LABS: Anion Gap 14 mmol/L (10-20); BUN (Urea Nitrogen) 67 mg/dL (9.8-20.1); Calc. Creatinine Clearance 15 mL/min (70-130); Calcium 9.5 mg/dL (7.8-10.44); Carbon Dioxide 25 mmol/L (23-31); Chloride 103 mmol/L (98-107); Estimated GFR-MDRD 10; Glucose 148 mg/dL (83-110); Potassium 4.6 mmol/L (3.5-5.1); Sodium 137 mmol/L (136-145)
[2019-01-11] MEDS ORDERED: Tuberculin PPD 0.1 ML VIAL I-DERMAL SCH (08:15)
[2019-01-11] MEDS: Ondansetron PF 4 MG/2 ML Vial IVP PRN ×2 (08:23→18:05)
--- NOTE | 2019-01-11 08:25 | PRG ---
DATE OF SERVICE: 01/11/2019 SUBJECTIVE: Ms. Canales is a 73-year-old white female with chronic renal failure, was initially on dialysis. She underwent a 1-hour hemodialysis. She had a cuffed hemodialysis catheter placed by Dr. Le. No complaints today except for some nausea. No complaints of chest pain or shortness of breath. OBJECTIVE: VITAL SIGNS: Blood pressure 151/78, heart rate 70, respiratory rate 18, temperature 98.3, and pulse ox 94%. GENERAL: Awake, alert, comfortable, obese, not in distress. SKIN: Adequate turgor. HEENT: She has slightly pale conjunctivae. Anicteric sclerae. NECK: No neck mass. No carotid bruits. No JVD. CHEST: No deformities. LUNGS: Decreased breath sounds. HEART: Normal sinus rhythm. No murmurs. No gallops. No rubs. ABDOMEN: Globular, soft, and nontender. No masses. EXTREMITIES: Positive for edema. MEDICATIONS: Medications of January 11, 2019, was reviewed. LABORATORY DATA: Laboratories of January 11, 2019; white count 5.5, hemoglobin 8.5. Sodium 137, potassium 4.6, chloride 103, carbon dioxide 25, BUN 67, creatinine 4.53, glucose 148, and calcium 9.5. ASSESSMENT AND PLAN: 1. Chronic renal failure/end-stage renal disease - stable. Tolerated the 1-hour hemodialysis. Continue current hemodialysis regimen. My plan is to do a 2-hour hemodialysis. Fluid removal as tolerated. 2. Anemia, continuing weekly Epogen. Iron supplementation. 3. Congestive heart failure, clinically improved. Continue current fluid removal with dialysis. 4. The patient will be scheduled for PD catheter placement eventually by Dr. Le. The patient prefers to do peritoneal dialysis. Job ID: [id number]
[2019-01-11] MEDS: cloNIDine 0.2 MG TAB PO SCH ×3 (09:53→21:10)
[2019-01-11] MEDS: Insulin Glargine 14 UNITS in Pre-Filled Syringe SC SCH (10:39)
[2019-01-11] MEDS: Heparin 5,000 UNITS/ML VIAL SC SCH ×3 (10:39→21:12)
[2019-01-11] MEDS: Nitroglycerin 2% Ointment 1 INCH/1 GM Packet TOP SCH ×2 (10:39→15:19)
--- NOTE | 2019-01-11 10:50 | PDOC.PN ---
- Subjective Encounter Start Date: 01/11/19 Encounter Start Time: 08:10 -: old records requested/rev Patient seen and examined. No new complaints. No overnight events - Objective Resuscitation Status - Order Detail: 01/05/19 21:18 Resuscitation Status Routine Resuscitation Status: FULL: Full Resuscitation MAR Reviewed: Yes Vital Signs & Weight: Vital Signs (12 hours) Temp Pulse Resp BP BP BP Pulse Ox 01/11/19 09:53 196/64 H 01/11/19 07:25 98.3 F 70 18 151/78 H 94 L 01/11/19 03:46 98.1 F 64 178/76 H 95 01/10/19 23:36 68 150/75 H Weight Weight 188 lb 7.924 oz I&O: 01/10/19 01/11/19 01/12/19 06:59 06:59 06:59 Intake Total 740 835 Output Total 1750 600 Balance -1010 235 Result Diagrams: 01/11/19 05:40 01/11/19 05:40 Additional Labs: Accuchecks 01/11/19 01/10/19 01/10/19 05:29 20:35 17:11 POC Glucose 167 H 172 H 127 H 01/10/19 01/10/19 01/10/19 14:17 13:37 10:49 POC Glucose 204 H 203 H 190 H EKG Reviewed by me: Yes Phys Exam - Physical Examination Constitutional: NAD HEENT: PERRLA, moist MMs, sclera anicteric Neck: no JVD, supple Respiratory: no wheezing, no rales, no rhonchi Cardiovascular: RRR, no significant murmur, no rub Gastrointestinal: soft, non-tender, no distention, positive bowel sounds Musculoskeletal: no edema, pulses present Neurological: non-focal, normal sensation Lymphatic: no nodes Psychiatric: normal affect, A&O x 3 Skin: no rash, normal turgor Dx/Plan (1) Acute on chronic diastolic ACC/AHA stage C congestive heart failure Code(s): I50.33 - ACUTE ON CHRONIC DIASTOLIC (CONGESTIVE) HEART FAILURE Status : Acute (2) Acute worsening of stage 4 chronic kidney disease Code(s): N18.4 - CHRONIC KIDNEY DISEASE, STAGE 4 (SEVERE) Status: Acute Comment: Pt to have HD catheter placed for dialysis (3) Hypertensive urgency Code(s): I16.0 - HYPERTENSIVE URGENCY Status: Acute (4) Anemia, normocytic normochromic Code(s): D64.9 - ANEMIA, UNSPECIFIED Status: Chronic (5) Anxiety and depression Code(s): F41.9 - ANXIETY DISORDER, UNSPECIFIED; F32.9 - MAJOR DEPRESSIVE DISORDER, SINGLE EPISODE, UNSPECIFIED Status: Chronic Comment: mild, stable (6) DM2 (diabetes mellitus, type 2) Status: Chronic Comment: continue accuchecks, insulin sliding scale (7) GERD (gastroesophageal reflux disease) Code(s): K21.9 - GASTRO-ESOPHAGEAL REFLUX DISEASE WITHOUT ESOPHAGITIS Status: Chronic Qualifiers: Comment: stable (8) HTN (hypertension) Code(s): I10 - ESSENTIAL (PRIMARY) HYPERTENSION Status: Chronic Comment: monitor vital signs, titrate antihypertensives as needed (9) Hyperlipidemia Code(s): E78.5 - HYPERLIPIDEMIA, UNSPECIFIED Status: Chronic Qualifiers: Comment: stable (10) Hypothyroidism Code(s): E03.9 - HYPOTHYROIDISM, UNSPECIFIED Status: Chronic Qualifiers: Comment: stable (11) Moderate tricuspid regurgitation by prior echocardiogram Code(s): I07.1 - RHEUMATIC TRICUSPID INSUFFICIENCY Status: Chronic (12) Obesity (BMI 30.0-34.9) Code(s): E66.9 - OBESITY, UNSPECIFIED Status: Chronic - Plan cont current plan of care * medication reviewed as below * symptomatic treatment * continue HD as per nephrology * discharge planning. Review of Systems - Review of Systems ENT: negative: Ear Pain, Ear Discharge, Nose Pain, Nose Discharge, Nose Congestion, Mouth Pain, Mouth Swelling, Throat Pain, Throat Swelling, Other Respiratory: negative: Cough, Dry, Shortness of Breath, Hemoptysis, SOB with Excertion, Pleuritic Pain, Sputum, Wheezing Cardiovascular: negative: chest pain, palpitations, orthopnea, paroxysmal nocturnal dyspnea, edema, light headedness, other Gastrointestinal: negative: Nausea, Vomiting, Abdominal Pain, Diarrhea, Constipation, Melena, Hematochezia, Other Genitourinary: negative: Dysuria, Frequency, Incontinence, Hematuria, Retention , Other Musculoskeletal: negative: Neck Pain, Shoulder Pain, Arm Pain, Back Pain, Hand Pain, Leg Pain, Foot Pain, Other - Medications/Allergies Allergies/Adverse Reactions: Allergies Allergy/AdvReac Type Severity Reaction Status Date / Time Penicillins Allergy Severe Verified 04/06/18 00:50 cyclobenzaprine HCl AdvReac Verified 01/05/19 22:05 [From Flexeril] Medications: Current Medications Acetaminophen (Tylenol) 1,000 mg PO Q6H PRN PRN Reason: Moderate to Severe Pain (6-10) Last Admin: 01/10/19 20:28 Dose: 1,000 mg Albuterol/Ipratropium (Duoneb) 3 ml NEB [id number] PRN PRN Reason: SOB &/or Wheezing Last Admin: 01/09/19 01:44 Dose: 3 ml Atorvastatin Calcium (Lipitor) 20 mg PO [facility] Last Admin: 01/10/19 20:16 Dose: 20 mg Bupropion HCl (Wellbutrin) 75 mg PO BID [facility] Last Admin: 01/10/19 20:15 Dose: 75 mg Carvedilol (Coreg) 12.5 mg PO BID[facility] Last Admin: 01/10/19 16:24 Dose: Not Given Cholecalciferol (Vitamin D3) 1,000 units PO DAILY [facility] Last Admin: 01/10/19 08:55 Dose: 1,000 units Citalopram Hydrobromide (Celexa) 20 mg PO DAILY [facility] Last Admin: 01/10/19 08:55 Dose: 20 mg Clonidine (Catapres) 0.1 mg PO Q4H PRN PRN Reason: BP>180/100 Last Admin: 01/06/19 11:47 Dose: 0.1 mg Clonidine (Catapres) 0.2 mg PO TID [facility] Last Admin: 01/11/19 09:53 Dose: 0.2 mg Dextrose/Water (Dextrose 50%) 25 gm SLOW IVP PRN PRN PRN Reason: Hypoglycemia Ferrous Sulfate (Feosol) 325 mg PO BID-[facility] Last Admin: 01/10/19 17:01 Dose: 325 mg Fish Oil (Fish Oil) 1,000 mg PO BID [facility] Last Admin: 01/10/19 20:16 Dose: 1,000 mg Glucagon (Glucagon) 1 mg IM PRN PRN PRN Reason: Hypoglycemia Guaifenesin (Robitussin Sf) 100 mg PO Q4H PRN PRN Reason: Cough Last Admin: 01/10/19 23:42 Dose: 100 mg Heparin Sodium (Porcine) (Heparin) 5,000 units SC TID [facility] Last Admin: 01/11/19 10:39 Dose: Not Given Hydralazine HCl (Apresoline) 25 mg PO TID [facility] Last Admin: 01/10/19 20:15 Dose: 25 mg Dextrose/Water (D5w) 1,000 mls @ 0 mls/hr IV .Q0M PRN PRN Reason: Hypoglycemia Insulin Glargine 14 units/ (Miscellaneous Medication) 0.14 mls @ 0 mls/hr SC QAM [facility] Last Admin: 01/11/19 10:39 Dose: Not Given Levofloxacin 500 mg/ Device 100 mls @ 100 mls/hr IVPB ONCALL-OR [facility] Last Admin: 01/10/19 14:15 Dose: 100 mls Insulin Human Lispro (Humalog) 0 units SC .MILD SLIDING SCALE PRN PRN Reason: Mild Correctional Scale Last Admin: 01/10/19 14:16 Dose: 3 unit Isosorbide Mononitrate (Imdur Er) 30 mg PO DAILY [facility] Last Admin: 01/10/19 08:55 Dose: 30 mg Lactulose (Lactulose) 20 gm PO HS [facility] Last Admin: 01/10/19 20:10 Dose: Not Given Levothyroxine Sodium (Synthroid) 100 mcg PO 0600 [facility] Last Admin: 01/11/19 06:10 Dose: 100 mcg Multivitamins (Theragran) 1 tab PO DAILY [facility] Last Admin: 01/10/19 08:55 Dose: 1 tab Nifedipine (Procardia Xl) 60 mg PO DAILY [facility] Last Admin: 01/10/19 08:55 Dose: 60 mg Nitroglycerin (Nitro-Bid 2% Ointment) 0.5 inch TOP 0800,1600,2359 [facility] Last Admin: 01/11/19 10:39 Dose: Not Given Ondansetron HCl (Zofran Odt) 4 mg PO Q6H PRN PRN Reason: Nausea/Vomiting Ondansetron HCl (Zofran) 4 mg IVP Q6H PRN PRN Reason: Nausea/Vomiting Last Admin: 01/11/19 08:23 Dose: 4 mg Pantoprazole Sodium (Protonix) 40 mg PO DAILY [facility] Last Admin: 01/10/19 08:56 Dose: 40 mg Sodium Chloride (Flush - Normal Saline) 10 ml IVF Q12HR [facility] Last Admin: 01/10/19 20:10 Dose: 10 ml Sodium Chloride (Flush - Normal Saline) 10 ml IVF PRN PRN PRN Reason: Saline Flush Tramadol HCl (Ultram) 50 mg PO Q6H PRN PRN Reason: Mild-Moderate Pain (1-5) Last Admin: 01/11/19 10:53 Dose: 50 mg Tuberculin PPD (Tuberculin Ppd) 0.1 ml I-DERMAL ONE [facility] Stop: 01/14/19 08:16
[2019-01-11] MEDS: traMADol HCl 50 MG TAB PO PRN ×2 (10:53→17:16)
[2019-01-11] MEDS: Carvedilol 6.25 MG TAB PO SCH ×2 (11:50→16:28)
[2019-01-11] MEDS: Fish Oil 1,000 MG CAP PO SCH ×2 (11:51→21:09)
[2019-01-11] MEDS: NIFEdipine XL 60 MG TAB PO SCH (11:51)
[2019-01-11] MEDS: Ferrous Sulfate 325 MG TAB PO SCH ×2 (11:51→16:28)
[2019-01-11] MEDS: Citalopram 20 MG TAB PO SCH (11:51)
[2019-01-11] MEDS: Multivit, Therapeutic 1 TAB PO SCH (11:51)
[2019-01-11] MEDS: Ondansetron ODT 4 MG TAB PO PRN (11:52)
[2019-01-11] MEDS: buPROPion 75 MG TAB PO SCH ×2 (11:52→21:10)
[2019-01-11] MEDS: hydrALAZINE 25 MG TAB PO SCH ×3 (11:52→21:10)
[2019-01-11] MEDS ORDERED: Heparin 10,000 UNITS/ 10 ML VIAL ONE (12:00)
[2019-01-11] MEDS: HumaLOG 300 UNITS/3 ML VIAL SC PRN (17:26)
[2019-01-11] MEDS: Atorvastatin Calcium 20 MG TAB PO SCH (21:09)
[2019-01-12] MEDS: Ondansetron PF 4 MG/2 ML Vial IVP PRN ×3 (00:03→21:16)
[2019-01-12] MEDS ORDERED: Lorazepam 2 MG/ML VIAL SLOW IVP SCH (02:30)
[2019-01-12 04:50] LABS: #Eosinphils 0.1 thou/uL (0.0-0.7); #Lymphocytes 0.6 thou/uL (1.20-3.40); #Monocytes 0.4 thou/uL (0.11-0.59); %Basophils 0.2 % (0.0-1.0); %Eosinophils 1.3 % (0.0-10.0); %Lymphocytes 12.7 % (21.0-51.0); %Monocytes 8.2 % (0.0-10.0); %Neutrophils 77.5 % (42.0-75.0); Hemoglobin 8.8 g/dL (12.0-16.0); Mean Corpuscular HGB CONC 33.4 g/dL (32.0-36.0); Mean Corpuscular Hemoglobin 31.3 pg (27.0-31.0); Mean Corpuscular Volume 93.6 fL (78.0-98.0); Mean Platelet Volume 8.5 fL (7.4-10.4); Platelet Count 185 thou/uL (130-400); RBC Distribution Width 12.3 % (11.5-14.5); White Blood Cell (WBC) Count 5.1 thou/uL (4.8-10.8)
[2019-01-12] MEDS: Levothyroxine Sodium 100 MCG TAB PO SCH (05:30)
[2019-01-12] MEDS ORDERED: CEFAZOLIN 2 GM in Premix Bag 1 BAG IVPB SCH (06:00)
--- NOTE | 2019-01-12 09:56 | PRG ---
DATE OF SERVICE: 01/12/2019 SUBJECTIVE: Ms. Canales is a 73-year-old white female, who was admitted for CHF, was initiated dialysis due to the worsening renal dysfunction and volume overload. She has undergone 2 days of hemodialysis, which she seems to be tolerating. Last night, she had some episode of nausea and vomiting. My plan to do is to minimize fluid removal with her today. No other complaints. She is scheduled for interventional PD catheter placement as well as AV fistula. No chest pain or shortness of breath this morning. OBJECTIVE: VITAL SIGNS: Blood pressure 155/67, heart rate 76, respiratory rate 20, temperature 98.5, and pulse ox 93%. GENERAL: Awake, alert, comfortable, not in distress. SKIN: Adequate turgor. HEENT: She has pinkish conjunctivae. Anicteric sclerae. NECK: No neck mass. No carotid bruits. No JVD. CHEST: No deformities. LUNGS: Clear breath sounds. HEART: Normal sinus rhythm. No murmur, no gallops, no rubs. ABDOMEN: Globular, soft. EXTREMITIES: Trace edema. MEDICATIONS: Medications of January 12, 2019, reviewed. LABORATORY DATA: Laboratories of January 12, 2019; white count 5.1, hemoglobin 8.8. On January 11, 2019, sodium 137, potassium 4.6, chloride 103, carbon dioxide 25, BUN 67, creatinine 4.58, calcium 9.5. ASSESSMENT AND PLAN: 1. Chronic renal failure/end-stage renal disease, stable. Continuing daily hemodialysis. The plan is to do a 3-hour hemodialysis today. We will attempt to minimize fluid removal due to the episode nausea and vomiting. 2. Congestive heart failure, clinically much improved with fluid removal with dialysis. 3. Chronic anemia-continuing weekly Epogen. The patient is eventually scheduled for PD catheter as well as AV fistula by Dr. Le. Doing well overall. Recheck CBC and basic metabolic profile again tomorrow. Job ID: [id number]
[2019-01-12] MEDS: Carvedilol 6.25 MG TAB PO SCH ×2 (10:28→18:43)
[2019-01-12] MEDS: hydrALAZINE 25 MG TAB PO SCH ×3 (10:29→23:34)
[2019-01-12] MEDS: cloNIDine 0.2 MG TAB PO SCH ×3 (10:29→23:33)
[2019-01-12] MEDS: NIFEdipine XL 60 MG TAB PO SCH (10:30)
[2019-01-12] MEDS: Ferrous Sulfate 325 MG TAB PO SCH ×2 (10:41→18:43)
[2019-01-12] MEDS: Nitroglycerin 2% Ointment 1 INCH/1 GM Packet TOP SCH ×3 (10:41→18:43)
[2019-01-12] MEDS: Citalopram 20 MG TAB PO SCH (10:48)
[2019-01-12] MEDS: Insulin Glargine 14 UNITS in Pre-Filled Syringe SC SCH (10:49)
[2019-01-12] MEDS: Fish Oil 1,000 MG CAP PO SCH ×2 (10:49→23:33)
[2019-01-12] MEDS: Multivit, Therapeutic 1 TAB PO SCH (10:49)
[2019-01-12] MEDS: Heparin 5,000 UNITS/ML VIAL SC SCH ×2 (10:49→15:43)
[2019-01-12] MEDS: buPROPion 75 MG TAB PO SCH ×2 (12:11→23:32)
[2019-01-12] MEDS: cloNIDine 0.1 MG TAB PO PRN (13:08)
[2019-01-12] MEDS ORDERED: Rocuronium Bromide 10 MG/ML (10ML VIAL) ONE (13:27)
[2019-01-12] MEDS ORDERED: Lidocaine 1% PF 5 ML VIAL ONE (13:27)
[2019-01-12] MEDS ORDERED: Heparin 10,000 UNITS/ 10 ML VIAL ONE (13:27)
[2019-01-12] MEDS ORDERED: PROPOFOL 200 MG/20 ML VIAL ONE (13:27)
[2019-01-12] MEDS ORDERED: Glycopyrrolate 0.2 MG/ML 5 ML SYRINGE ONE (13:27)
[2019-01-12] MEDS ORDERED: ePHEDrine 50 MG/ML VIAL ONE (13:27)
[2019-01-12] MEDS ORDERED: Ondansetron PF 4 MG/2 ML Vial ONE (13:27)
--- NOTE | 2019-01-12 13:52 | PRG ---
DATE OF SERVICE: 01/12/2019 SUBJECTIVE: The patient is seen and examined at bedside. She had some nausea and vomiting last night without any abdominal pain or diarrhea. She had planned procedure of peritoneal dialysis catheter placement by Dr. Le today. OBJECTIVE: VITAL SIGNS: Blood pressure is 177/81, pulse is 67, temperature is 98.4, respiratory rate is 18, O2 saturation is 95% on room air. HEENT: Head is atraumatic, normocephalic. She looks palish. Eyes, sclerae are nonicteric. Conjunctivae palish. Oral mucosa is moist. NECK: Supple. LUNGS: Clear. HEART: S1, S2 normal. No S3. No S4. ABDOMEN: Soft, nontender. Bowel sounds are present. No organomegaly. EXTREMITIES: No clubbing, cyanosis, or edema. NEUROLOGICAL: She follows my commands. She moves her all 4 extremities. LABORATORY DATA: Labs showed glycemia is ranging from 113 to 214. White count of 5.1, hemoglobin 8.8, hematocrit 26.2, platelet count 185,000. Hepatitis B surface antigen is nonreactive, hepatitis B surface antibody is nonreactive, hepatitis B core total antibody is nonreactive, and hepatitis C antibody is nonreactive. IMPRESSION: 1. [id number] diastolic congestive heart failure. 2. Acute worsening chronic kidney disease. The patient had dialysis catheter placed by Dr. Le recently and she is going to have peritoneal dialysis catheter placed by Dr. Le this afternoon or this evening whenever she is able to. She had hemodialysis today. 3. Hypertensive urgency. Blood pressure is still elevated despite of hemodialysis. She is still running systolic 170s to 180s. We will start using more p.r.n. clonidine for that. 4. Anxiety and depression. 5. Normocytic normochromic anemia secondary to chronic kidney disease. 6. Diabetes mellitus, relatively well controlled. 7. Hyperlipidemia. 8. Hypothyroidism. 9. Obesity. PLAN: As mentioned above, PD catheter placement today by general surgeon. P.r.n. Zofran for nausea. Continue HD per Nephrology. Job ID: [id number]
[2019-01-12] MEDS ORDERED: Lidocaine 2% PF 5 ML VIAL ONE (15:35)
[2019-01-12] MEDS ORDERED: Bupivacaine/Epinephrine 0.25% 30 ML VIAL ONE (15:35)
[2019-01-12] MEDS ORDERED: Heparin 5,000 UNITS/ML VIAL ONE (15:35)
[2019-01-12] MEDS ORDERED: Nitroglycerin 2% Ointment 1 INCH/1 GM Packet ONE (16:10)
[2019-01-12] MEDS ORDERED: Protamine Sulfate 50 MG/5 ML VIAL ONE (16:18)
[2019-01-12] MEDS ORDERED: Fentanyl 100 MCG/2 ML VIAL ONE (16:56)
[2019-01-12] MEDS ORDERED: Heparin 10,000 UNITS/1 ML VIAL ONE (17:34)
[2019-01-12] MEDS ORDERED: Promethazine HCl 25 MG/ML VIAL SLOW IVP PRN (18:50)
[2019-01-12] MEDS ORDERED: Ondansetron HCl/PF 4 MG/2 ML Vial IVP PRN (18:50)
[2019-01-12] MEDS ORDERED: Promethazine HCl 25 MG/ML VIAL IM PRN (18:50)
[2019-01-12] MEDS ORDERED: PACU-Morphine 4MG/ML VIAL SLOW IVP PRN (18:50)
[2019-01-12] MEDS ORDERED: HYDROmorphone 2 MG/ML VIAL SLOW IVP PRN (18:50)
[2019-01-12] MEDS ORDERED: hydrALAZINE 20 MG/ML VIAL ONE (19:30)
[2019-01-12] MEDS: Atorvastatin Calcium 20 MG TAB PO SCH (23:32)
--- NOTE | 2019-01-13 00:16 | OP ---
DATE OF PROCEDURE: 01/12/2019 PREOPERATIVE DIAGNOSES: End-stage renal disease, in need of dialysis access, desires peritoneal dialysis access, previous open cholecystectomy, right subcostal scar, and morbid obesity. POSTOPERATIVE DIAGNOSES: End-stage renal disease, in need of dialysis access, desires peritoneal dialysis access, previous open cholecystectomy, right subcostal scar, and morbid obesity. PROCEDURE PERFORMED: Laparoscopic peritoneal dialysis catheter, double cuffed pigtail, laparoscopic omentopexy, left arm primary fistula antecubital vein to proximal radial artery outflow primarily, cephalic vein secondary does feed the basilic vein, but more directly the cephalic vein, calibrated outflow to 3.5 mm coronary dilator. ANESTHESIA: General, local 0.25% Marcaine with epinephrine, 60 mL mixed to 2% Xylocaine, 10 mL. DESCRIPTION OF PROCEDURE: The patient was taken to the operating room. Under general anesthesia, abdomen and left upper extremity prepared with ChloraPrep and draped in routine fashion. Local anesthetic was infiltrated in the skin and subcutaneous tissue about the operative site. Left lateral subcostal incision made, pneumoperitoneum to 15 mmHg obtained with a Veress needle, replaced with a 5 port and laparoscope inserted. There were omental adhesions in the right upper quadrant from a previous open cholecystectomy. Incision made there. Right lateral subcostal opening incision scar and under laparoscopic visualization, a 5 port placed and directed caudally. At the desired exit site of the PD catheter, a stab incision was made and a counter incision made right paraumbilical. An 8 mm port placed in this counterincision directly and caudally and through the subcutaneous tissues, penetrating the rectus sheath, tunneling the rectus sheath and penetrating the abdominal wall inferiorly and laparoscopically visualized inserting the double cuffed pigtail peritoneal dialysis catheter, placed internal cuff into the rectus sheath and removed 8 mm port. A [place] dissector placed through the exit site and into the counterincision, grasping the catheter and pulled it out into the exit site. Placed an external cuff using the skin exit site and counterincision closed by approximating subcutaneous tissue with 3-0 Monocryl, skin with subdermal 4-0 Monocryl and [place] glue applied. The flushing device was secured to the PD catheter and flushed with heparinized saline solution 1000 units of heparin per mL, 10 mL, and cap applied. Sterile dressings applied. Omentum was mostly attached to the abdominal wall superiorly, but there was a leaflet that might have extended into the pelvis. Thus, omentopexy performed tacking this anterior abdominal wall superiorly with a transabdominal wall fixation suture of 2-0 Vicryl under laparoscopic visualization. Pneumoperitoneum reduced. All instruments were removed. All skin incisions approximated with interrupted subdermal 4-0 Monocryl and [place] glue applied. Attention was then turned to the left arm where incision made in the left wrist, but the cephalic vein was too smaller and the subcutaneous tissue was approximated with 3-0 Monocryl, skin with subdermal 4-0 Monocryl and [place] glue applied. Incision was made longitudinally in the proximal volar forearm just below the antecubital fossa, carried down through skin and subcutaneous tissue identifying the cephalic vein, which was of excellent caliber. The cephalic vein was very large. Antecubital vein dissected free. It directly fed the cephalic vein, thus, it was chosen for the inflow. The perforating branch antecubital vein was left intact. There was a communicating branch to the cephalic going to the basilic vein that indirectly fed the basilic vein from the antecubital inflow. Proximal radial artery was small, dissected free, controlled proximally and distally using silastic vessel loops. The patient given 6000 units of heparin intravenously and after adequate circulation time, the proximal aorta was clamped proximally and distally and longitudinal arteriotomy was made sharply, elongated with Bunch scissors for the fistula. A 2.5 cm anastomosis was created. Vein spatulated accordingly and continuous suture of 6-0 Prolene used for the anastomosis. Vascular clamps were released. There was good flow at the fistula interrogated by Doppler. Good hemostasis noted. The patient was given 25 mg of protamine by Anesthesia. Subcutaneous tissue was approximated with 3-0 Monocryl, skin with subdermal 4-0 Monocryl and [place] glue applied. Job ID: [id number]
[2019-01-13] MEDS: Heparin 5,000 UNITS/ML VIAL SC SCH ×4 (00:41→20:34)
[2019-01-13] MEDS: Nitroglycerin 2% Ointment 1 INCH/1 GM Packet TOP SCH ×2 (00:42→09:29)
[2019-01-13] MEDS: Ondansetron PF 4 MG/2 ML Vial IVP PRN ×4 (01:58→21:53)
[2019-01-13] MEDS ORDERED: hydrALAZINE 20 MG/ML VIAL SLOW IVP PRN (02:54)
[2019-01-13] MEDS ORDERED: hydrALAZINE 20 MG/ML VIAL SLOW IVP SCH (03:00)
[2019-01-13] MEDS: cloNIDine 0.1 MG TAB PO PRN (05:08)
[2019-01-13] MEDS: Ondansetron ODT 4 MG TAB PO PRN ×2 (05:09→20:34)
[2019-01-13] MEDS: Levothyroxine Sodium 100 MCG TAB PO SCH (05:09)
[2019-01-13 05:11] LABS: #Eosinphils 0.2 thou/uL (0.0-0.7); #Lymphocytes 1.1 thou/uL (1.20-3.40); #Monocytes 0.8 thou/uL (0.11-0.59); #Neutrophils 5.3 thou/uL (1.40-6.50); %Basophils 0.3 % (0.0-1.0); %Eosinophils 2.4 % (0.0-10.0); %Neutrophils 71.2 % (42.0-75.0); Hemoglobin 8.4 g/dL (12.0-16.0); Mean Corpuscular Hemoglobin 31.2 pg (27.0-31.0); Mean Corpuscular Volume 94.3 fL (78.0-98.0); Mean Platelet Volume 7.4 fL (7.4-10.4); Platelet Count 191 thou/uL (130-400); RBC Distribution Width 12.5 % (11.5-14.5); Red Blood Cell (RBC) Count 2.68 mill/uL (4.20-5.40); White Blood Cell (WBC) Count 7.4 thou/uL (4.8-10.8)
[2019-01-13 05:28] LABS: Anion Gap 14 mmol/L (10-20); BUN (Urea Nitrogen) 23 mg/dL (9.8-20.1); Calc. Creatinine Clearance 20 mL/min (70-130); Calcium 9.1 mg/dL (7.8-10.44); Carbon Dioxide 28 mmol/L (23-31); Chloride 100 mmol/L (98-107); Estimated GFR-MDRD 15; Glucose 115 mg/dL (83-110); Potassium 3.9 mmol/L (3.5-5.1); Sodium 138 mmol/L (136-145)
[2019-01-13] MEDS: Carvedilol 6.25 MG TAB PO SCH ×2 (09:28→16:21)
[2019-01-13] MEDS: buPROPion 75 MG TAB PO SCH ×2 (09:29→20:34)
[2019-01-13] MEDS: Ferrous Sulfate 325 MG TAB PO SCH ×2 (09:29→16:21)
[2019-01-13] MEDS: Fish Oil 1,000 MG CAP PO SCH ×2 (09:30→20:33)
[2019-01-13] MEDS: Citalopram 20 MG TAB PO SCH (09:30)
[2019-01-13] MEDS: cloNIDine 0.2 MG TAB PO SCH ×3 (09:30→20:34)
[2019-01-13] MEDS: hydrALAZINE 25 MG TAB PO SCH ×3 (09:31→20:33)
[2019-01-13] MEDS: Insulin Glargine 14 UNITS in Pre-Filled Syringe SC SCH (09:31)
[2019-01-13] MEDS: Multivit, Therapeutic 1 TAB PO SCH (09:32)
[2019-01-13] MEDS: NIFEdipine XL 60 MG TAB PO SCH (09:32)
[2019-01-13] MEDS: traMADol HCl 50 MG TAB PO PRN ×3 (09:32→21:53)
[2019-01-13] MEDS: Losartan 25 MG TAB PO SCH (09:35)
--- NOTE | 2019-01-13 09:48 | PRG ---
DATE OF SERVICE: 01/13/2019 SERVICE: Renal medicine. SUBJECTIVE: Ms. Canales is a 73-year-old white female, who was admitted for congestive heart failure. Due to progressive azotemia and volume overload, she was initiated on dialysis. She has been undergoing dialysis for the last 3 days. My plan is to do a 3-1/2 hour hemodialysis with her. CHF is also clinically improved. She is quite emotional today again. She was complaining of some nausea yesterday. We will review her antinausea medication today. In addition, she underwent AV fistula placement and PD catheter. We are dialyzing her through a tunneled dialysis catheter. No other complaints. No chest pain or shortness of breath. OBJECTIVE: VITAL SIGNS: Blood pressure 188/70, heart rate 74, respiratory rate 18, temperature 98.5, and pulse ox 97%. GENERAL: Awake, alert, comfortable, not in distress. SKIN: Adequate turgor. HEENT: She has slightly pale conjunctivae. Anicteric sclerae. NECK: No neck mass. No carotid bruits. No JVD. CHEST: No deformities. LUNGS: Clear breath sounds. No wheezing. No crackles. HEART: Normal sinus rhythm. No murmur. No gallops. No rubs. ABDOMEN: Globular, soft, and nontender. No masses. EXTREMITIES: Positive for edema, but no deformities. MEDICATIONS: Medications of January 13, 2019, reviewed. LABORATORY DATA: Laboratories of January 13, 2019; white count 7.4, hemoglobin 8.4. Sodium 138, potassium 3.9, chloride 100, carbon dioxide 28, BUN 23, creatinine 3.12, glucose 115, and calcium 9.1. ASSESSMENT AND PLAN: 1. Chronic renal failure/end-stage renal disease - we will plan to do a 3-1/2 hour hemodialysis with this patient. Again, fluid removal only as tolerated. After this dialysis today, we will place her on a 3 times a week hemodialysis regimen. 2. Congestive heart failure, clinically much improved. 3. Chronic anemia - currently on iron supplementation. In addition, the patient has been started on Epogen at 7500 units subcu q.7 days. 4. Nausea - we will add Reglan if this has not been started yet. 5. Hypertension, adjusting BP medications. We would consider adding losartan 25 mg tablet q.a.m. with this patient. Job ID: [id number]
[2019-01-13] MEDS ORDERED: Amlodipine 5 MG TAB PO SCH ×2 (09:58→10:15)
--- NOTE | 2019-01-13 10:30 | PRG ---
DATE OF SERVICE: SUBJECTIVE: Ms. Canales is doing fine. Does have some intermittent nausea. OBJECTIVE: VITAL SIGNS: Blood pressure is high at 180/80, pulse is in the 70s. LUNGS: Clear. CARDIAC: Normal S1, normal S2. ABDOMEN: Soft, nontender. ASSESSMENT: 1. End-stage renal disease. 2. Hypertension. PLAN: 1. Start amlodipine. 2. Continue carvedilol. 3. Stop nitrates. 4. She is for hemodialysis today. 5. The patient could be taken off telemetry at this point. Job ID: [id number]
--- NOTE | 2019-01-13 11:10 | PDOC.PN ---
- Subjective Encounter Start Date: 01/13/19 Encounter Start Time: 08:15 -: old records requested/rev pt has nausea, she does not want snu on discharge, no fever, has poor apatite - Objective Resuscitation Status - Order Detail: 01/05/19 21:18 Resuscitation Status Routine Resuscitation Status: FULL: Full Resuscitation MAR Reviewed: Yes Vital Signs & Weight: Vital Signs (12 hours) Temp Pulse Resp BP BP Pulse Ox 01/13/19 09:28 172/68 H 01/13/19 07:26 98.5 F 74 18 188/70 H 97 01/13/19 05:08 193/77 H 01/13/19 03:51 70 193/82 H 01/13/19 03:42 70 193/82 H 01/13/19 03:10 98.4 F 68 18 174/74 H 99 01/12/19 23:34 186/74 H 01/12/19 23:33 186/74 H Weight Weight 182 lb 15.739 oz I&O: 01/12/19 01/13/19 01/14/19 06:59 06:59 06:59 Intake Total 1080 240 Output Total 2100 Balance -1020 240 Result Diagrams: 01/13/19 04:55 01/13/19 04:55 Additional Labs: Accuchecks 01/13/19 01/13/19 01/12/19 10:32 05:18 21:20 POC Glucose 157 H 126 H 181 H 01/12/19 17:00 POC Glucose 153 H EKG Reviewed by me: Yes Phys Exam - Physical Examination Constitutional: NAD HEENT: PERRLA, moist MMs, sclera anicteric Neck: no JVD, supple left IC central line, right subclavin tunneled HD Respiratory: no wheezing, no rales, no rhonchi Cardiovascular: RRR, no significant murmur, no rub Gastrointestinal: soft, non-tender, no distention, positive bowel sounds PD catheter_ Musculoskeletal: no edema, pulses present AVF left UE Neurological: non-focal, normal sensation, moves all 4 limbs Lymphatic: no nodes Psychiatric: normal affect, A&O x 3 Skin: no rash, normal turgor Dx/Plan (1) Acute on chronic diastolic ACC/AHA stage C congestive heart failure Code(s): I50.33 - ACUTE ON CHRONIC DIASTOLIC (CONGESTIVE) HEART FAILURE Status : Acute (2) Acute worsening of stage 4 chronic kidney disease Code(s): N18.4 - CHRONIC KIDNEY DISEASE, STAGE 4 (SEVERE) Status: Acute Comment: Pt to have HD catheter placed for dialysis (3) Hypertensive urgency Code(s): I16.0 - HYPERTENSIVE URGENCY Status: Acute (4) Anemia, normocytic normochromic Code(s): D64.9 - ANEMIA, UNSPECIFIED Status: Chronic (5) Anxiety and depression Code(s): F41.9 - ANXIETY DISORDER, UNSPECIFIED; F32.9 - MAJOR DEPRESSIVE DISORDER, SINGLE EPISODE, UNSPECIFIED Status: Chronic Comment: mild, stable (6) DM2 (diabetes mellitus, type 2) Status: Chronic Comment: continue accuchecks, insulin sliding scale (7) GERD (gastroesophageal reflux disease) Code(s): K21.9 - GASTRO-ESOPHAGEAL REFLUX DISEASE WITHOUT ESOPHAGITIS Status: Chronic Qualifiers: Comment: stable (8) HTN (hypertension) Code(s): I10 - ESSENTIAL (PRIMARY) HYPERTENSION Status: Chronic Comment: monitor vital signs, titrate antihypertensives as needed (9) Hyperlipidemia Code(s): E78.5 - HYPERLIPIDEMIA, UNSPECIFIED Status: Chronic Qualifiers: Comment: stable (10) Hypothyroidism Code(s): E03.9 - HYPOTHYROIDISM, UNSPECIFIED Status: Chronic Qualifiers: Comment: stable (11) Moderate tricuspid regurgitation by prior echocardiogram Code(s): I07.1 - RHEUMATIC TRICUSPID INSUFFICIENCY Status: Chronic (12) Obesity (BMI 30.0-34.9) Code(s): E66.9 - OBESITY, UNSPECIFIED Status: Chronic - Plan cont current plan of care, plan discussed w/ family, PT/OT, client services representative * today plan for HD * medication reviewed as below * symptomatic treatment * outpt HD on alternate day until PD can be started * discussed with * discharge planning. Review of Systems - Review of Systems ENT: negative: Ear Pain, Ear Discharge, Nose Pain, Nose Discharge, Nose Congestion, Mouth Pain, Mouth Swelling, Throat Pain, Throat Swelling, Other Respiratory: negative: Cough, Dry, Shortness of Breath, Hemoptysis, SOB with Excertion, Pleuritic Pain, Sputum, Wheezing Cardiovascular: negative: chest pain, palpitations, orthopnea, paroxysmal nocturnal dyspnea, edema, light headedness, other Gastrointestinal: Nausea. negative: Vomiting, Abdominal Pain, Diarrhea, Constipation, Melena, Hematochezia, Other Genitourinary: negative: Dysuria, Frequency, Incontinence, Hematuria, Retention , Other Musculoskeletal: negative: Neck Pain, Shoulder Pain, Arm Pain, Back Pain, Hand Pain, Leg Pain, Foot Pain, Other Skin: negative: Rash, Lesions, Fabian, Bruising, Other - Medications/Allergies Allergies/Adverse Reactions: Allergies Allergy/AdvReac Type Severity Reaction Status Date / Time Penicillins Allergy Severe Verified 04/06/18 00:50 cyclobenzaprine HCl AdvReac Verified 01/05/19 22:05 [From Flexeril] Medications: Current Medications Acetaminophen (Tylenol) 1,000 mg PO Q6H PRN PRN Reason: Moderate to Severe Pain (6-10) Last Admin: 01/10/19 20:28 Dose: 1,000 mg Albuterol/Ipratropium (Duoneb) 3 ml NEB [id number] PRN PRN Reason: SOB &/or Wheezing Last Admin: 01/09/19 01:44 Dose: 3 ml Amlodipine Besylate (Norvasc) 5 mg PO DAILY [facility] Amlodipine Besylate (Norvasc) 5 mg PO NOW [facility] Stop: 01/13/19 12:00 Atorvastatin Calcium (Lipitor) 20 mg PO [facility] Last Admin: 01/12/19 23:32 Dose: Not Given Bupropion HCl (Wellbutrin) 75 mg PO BID [facility] Last Admin: 01/13/19 09:29 Dose: 75 mg Carvedilol (Coreg) 12.5 mg PO BID-[facility] Last Admin: 01/13/19 09:28 Dose: 12.5 mg Cholecalciferol (Vitamin D3) 1,000 units PO DAILY [facility] Last Admin: 01/13/19 09:30 Dose: 1,000 units Citalopram Hydrobromide (Celexa) 20 mg PO DAILY [facility] Last Admin: 01/13/19 09:30 Dose: 20 mg Clonidine (Catapres) 0.1 mg PO Q4H PRN PRN Reason: BP>180/100 Last Admin: 01/13/19 05:08 Dose: 0.1 mg Clonidine (Catapres) 0.2 mg PO TID [facility] Last Admin: 01/13/19 09:30 Dose: 0.2 mg Dextrose/Water (Dextrose 50%) 25 gm SLOW IVP PRN PRN PRN Reason: Hypoglycemia Ferrous Sulfate (Feosol) 325 mg PO BID-[facility] Last Admin: 01/13/19 09:29 Dose: 325 mg Fish Oil (Fish Oil) 1,000 mg PO BID [facility] Last Admin: 01/13/19 09:30 Dose: 1,000 mg Glucagon (Glucagon) 1 mg IM PRN PRN PRN Reason: Hypoglycemia Guaifenesin (Robitussin Sf) 100 mg PO Q4H PRN PRN Reason: Cough Last Admin: 01/10/19 23:42 Dose: 100 mg Heparin Sodium (Porcine) (Heparin) 5,000 units SC TID [facility] Last Admin: 01/13/19 09:30 Dose: 5,000 units Hydralazine HCl (Apresoline) 25 mg PO TID [facility] Last Admin: 01/13/19 09:31 Dose: 25 mg Dextrose/Water (D5w) 1,000 mls @ 0 mls/hr IV .Q0M PRN PRN Reason: Hypoglycemia Insulin Glargine 14 units/ (Miscellaneous Medication) 0.14 mls @ 0 mls/hr SC QAM [facility] Last Admin: 01/13/19 09:31 Dose: 0.14 mls Levofloxacin 500 mg/ Device 100 mls @ 100 mls/hr IVPB ONCALL-[facility] Last Admin: 01/10/19 14:15 Dose: 100 mls Insulin Human Lispro (Humalog) 0 units SC .MILD SLIDING SCALE PRN PRN Reason: Mild Correctional Scale Last Admin: 01/11/19 17:26 Dose: 3 unit Isosorbide Mononitrate (Imdur Er) 30 mg PO DAILY [facility] Last Admin: 01/13/19 09:31 Dose: 30 mg Lactulose (Lactulose) 20 gm PO HS [facility] Last Admin: 01/12/19 23:34 Dose: Not Given Levothyroxine Sodium (Synthroid) 100 mcg PO 0600 [facility] Last Admin: 01/13/19 05:09 Dose: 100 mcg Losartan Potassium (Cozaar) 25 mg PO DAILY [facility] Last Admin: 01/13/19 09:35 Dose: 25 mg Multivitamins (Theragran) 1 tab PO DAILY [facility] Last Admin: 01/13/19 09:32 Dose: 1 tab Nifedipine (Procardia Xl) 60 mg PO DAILY [facility] Last Admin: 01/13/19 09:32 Dose: 60 mg Ondansetron HCl (Zofran Odt) 4 mg PO Q6H PRN PRN Reason: Nausea/Vomiting Last Admin: 01/13/19 05:09 Dose: 4 mg Ondansetron HCl (Zofran) 4 mg IVP Q6H PRN PRN Reason: Nausea/Vomiting Last Admin: 01/13/19 09:32 Dose: 4 mg Pantoprazole Sodium (Protonix) 40 mg PO DAILY [facility] Last Admin: 01/13/19 09:32 Dose: 40 mg Sodium Chloride (Flush - Normal Saline) 10 ml IVF Q12HR [facility] Last Admin: 01/13/19 09:32 Dose: 10 ml Sodium Chloride (Flush - Normal Saline) 10 ml IVF PRN PRN PRN Reason: Saline Flush Last Admin: 01/13/19 02:00 Dose: 10 ml Tramadol HCl (Ultram) 50 mg PO Q6H PRN PRN Reason: Mild-Moderate Pain (1-5) Last Admin: 01/13/19 09:32 Dose: 50 mg Tuberculin PPD (Tuberculin Ppd) 0.1 ml I-[facility] Stop: 01/14/19 08:16 Last Admin: 01/11/19 12:31 Dose: 0.1 ml
[2019-01-13] MEDS ORDERED: Heparin 10,000 UNITS/1 ML VIAL ONE (11:11)
[2019-01-13 12:05] VITALS: BMI 31.4
--- NOTE | 2019-01-13 14:31 | PRG ---
DATE OF SERVICE: 01/13/2019 SUBJECTIVE: Padmini Canales is doing well after laparoscopic peritoneal dialysis catheter placement yesterday and a left arm fistula. She had good veins for fistula, outflow primarily cephalic vein, with secondary outflow basilic vein. She is morbidly obese and this fistula may take a while to mature. However, she will be using her peritoneal dialysis and will undergo training for that. She has a hemodialysis catheter, she is using like for dialysis this morning. She is having pain in her abdomen and arm and all of her pain seems to be exaggerated. Blood pressure 188/70, respiratory rate 18, temperature 98.5 degrees. Her hemoglobin is stable at 8.4, white count 7.4. Basic metabolic profile consistent with end-stage renal disease, otherwise normal. Potassium 3.9. Abdomen is soft. Bowel sounds present. Tenderness as expected postoperatively. No peritoneal signs. Good bowel sounds. Left arm fistula, good thrill and bruit. Well-healed wounds. Left wrist wound, well healed. This was performed to look for an adequate cephalic vein, which was not present, and just closed. Her fistula is in her upper arm. ASSESSMENT AND PLAN: Doing well. I will see her as needed in this hospitalization. She can follow up in my office in 2 to 3 weeks. The patient needs to make an appointment to see the peritoneal dialysis nurse in 3 to 10 days post peritoneal dialysis catheter placement, so they can flush the catheter and instruct her on management. Leave the dressings intact until the patient sees the peritoneal dialysis nurse. Job ID: [id number]
[2019-01-13] MEDS: Atorvastatin Calcium 20 MG TAB PO SCH (20:33)
[2019-01-13] MEDS: Acetaminophen 500 MG TAB PO PRN (20:34)
[2019-01-13] MEDS ORDERED: Lorazepam 0.5 MG TAB PO SCH (23:15)
[2019-01-14] MEDS: Levothyroxine Sodium 100 MCG TAB PO SCH (05:50)
[2019-01-14] MEDS: Carvedilol 6.25 MG TAB PO SCH ×2 (08:32→16:13)
[2019-01-14] MEDS: Ferrous Sulfate 325 MG TAB PO SCH ×2 (08:32→16:13)
[2019-01-14] MEDS: Citalopram 20 MG TAB PO SCH (08:33)
[2019-01-14] MEDS: buPROPion 75 MG TAB PO SCH ×2 (08:33→21:04)
[2019-01-14] MEDS: Fish Oil 1,000 MG CAP PO SCH ×2 (08:33→21:03)
[2019-01-14] MEDS: cloNIDine 0.2 MG TAB PO SCH ×3 (08:33→21:03)
[2019-01-14] MEDS: hydrALAZINE 25 MG TAB PO SCH ×3 (08:34→21:03)
[2019-01-14] MEDS: Insulin Glargine 14 UNITS in Pre-Filled Syringe SC SCH (08:34)
[2019-01-14] MEDS: Heparin 5,000 UNITS/ML VIAL SC SCH ×3 (08:34→21:04)
[2019-01-14] MEDS: Multivit, Therapeutic 1 TAB PO SCH (08:35)
[2019-01-14] MEDS: NIFEdipine XL 60 MG TAB PO SCH (08:35)
[2019-01-14] MEDS: Losartan 25 MG TAB PO SCH (08:35)
[2019-01-14] MEDS: traMADol HCl 50 MG TAB PO PRN ×2 (08:36→21:09)
[2019-01-14] MEDS: Ondansetron ODT 4 MG TAB PO PRN (08:37)
[2019-01-14] MEDS ORDERED: Amlodipine 5 MG TAB PO SCH (09:00)
--- NOTE | 2019-01-14 09:09 | PRG ---
DATE OF SERVICE: 01/14/2019 SERVICE: Renal Medicine. SUBJECTIVE: Ms. Canales is a 73-year-old white female, who was initially admitted for congestive heart failure. Due to the progressive shortness of breath as well as worsening renal dysfunction, she was initiated on dialysis. She has been tolerating the said dialysis regimen. She did receive dialysis yesterday. She has had a PD catheter placed, tunneled catheter as well as an AV fistula. No new complaints today. No complaints of chest pain or shortness of breath. OBJECTIVE: VITAL SIGNS: Blood pressure is 167/72, heart rate 78, respiratory rate 20, temperature 98.2, and pulse ox 97%. GENERAL: The patient is awake, alert, comfortable, not in distress. SKIN: Adequate turgor. HEENT: She has pinkish conjunctivae. Anicteric sclerae. NECK: No neck mass. No carotid bruits. No JVD. CHEST: No deformities. LUNGS: Clear breath sounds. HEART: Normal sinus rhythm. No murmur. No gallops. No rubs. ABDOMEN: Globular, soft, and nontender. No masses. Positive for bowel sounds. The patient has a positive PD catheter. EXTREMITIES: No edema. No deformities. MEDICATIONS: Medications of January 14, 2019, reviewed. LABORATORY DATA: Laboratories of January 13, 2019; white count 7.4, hemoglobin 8.4. Sodium 138, potassium 3.9, chloride 100, carbon dioxide 28, BUN 23, creatinine 3.12, glucose 115, and calcium 9.1. ASSESSMENT AND PLAN: 1. Chronic anemia - continue currently weekly Epogen. 2. Chronic renal failure/end-stage renal disease - hemodialysis has been initiated. Once the PD catheter is ready to be used, we will start training this patient as an outpatient. 3. Congestive heart failure, clinically much improved. Okay for discharge any time. We will follow this patient at the outpatient dialysis unit. Job ID: [id number]
[2019-01-14] MEDS ORDERED: NIFEdipine XL 30 MG TAB PO SCH (09:15)
--- NOTE | 2019-01-14 11:02 | PRG ---
DATE OF SERVICE: 01/14/2019 SUBJECTIVE: Ms. Canales seems somewhat more confused today than usual. She said her memory was really has not been good. She has no chest pain or pressure. OBJECTIVE: VITAL SIGNS: Blood pressure is very high 205/81, earlier it was 167/72 and pulse 80, it is regular. LUNGS: Clear. CARDIAC: Normal S1 and S2. ASSESSMENT: 1. Hypertension. 2. End-stage renal disease. PLAN: 1. Increase Procardia XL to 90 mg a day. 2. Okay to stop telemetry. The heart rhythm has been stable. 3. We will increase amlodipine to 10 mg a day. 4. Continue carvedilol. 5. Continue hemodialysis. ADDENDUM: The patient actually is already on Procardia XL. We will actually increase the nifedipine too. Job ID: [id number]
[2019-01-14] MEDS: HumaLOG 300 UNITS/3 ML VIAL SC PRN ×2 (11:50→21:10)
[2019-01-14] MEDS: Acetaminophen 500 MG TAB PO PRN ×2 (11:55→17:57)
--- NOTE | 2019-01-14 13:28 | PDOC.PN ---
- Subjective Encounter Start Date: 01/14/19 Encounter Start Time: 13:26 Patient seen and examined, at bedside, all questions answered, no new issue. - Objective Resuscitation Status - Order Detail: 01/05/19 21:18 Resuscitation Status Routine Resuscitation Status: FULL: Full Resuscitation Vital Signs & Weight: Vital Signs (12 hours) Temp Pulse Resp BP BP Pulse Ox 01/14/19 11:30 98.3 F 70 16 179/74 H 93 L 01/14/19 10:25 71 148/67 H 01/14/19 08:30 79 205/81 H 01/14/19 07:40 98.2 F 78 20 167/72 H 97 01/14/19 03:45 98.2 F 74 20 166/74 H 92 L Weight Admit Weight 188 lb 2 oz Weight 182 lb 15.739 oz I&O: 01/13/19 01/14/19 01/15/19 06:59 06:59 06:59 Intake Total 240 850 Output Total 600 Balance 240 250 Result Diagrams: 01/13/19 04:55 01/13/19 04:55 Additional Labs: Accuchecks 01/14/19 01/14/19 01/13/19 10:48 05:22 20:32 POC Glucose 287 H 165 H 302 H 01/13/19 16:24 POC Glucose 137 H Phys Exam - Physical Examination Constitutional: NAD HEENT: PERRLA, moist MMs, sclera anicteric Neck: no nodes, no JVD, supple Respiratory: no wheezing, no rales, no rhonchi Cardiovascular: RRR, no significant murmur, no rub Gastrointestinal: soft, non-tender, no distention Musculoskeletal: no edema, pulses present Dx/Plan (1) ESRD (end stage renal disease) on dialysis Code(s): N18.6 - END STAGE RENAL DISEASE; Z99.2 - DEPENDENCE ON RENAL DIALYSIS Status: Acute (2) Hypertensive urgency Code(s): I16.0 - HYPERTENSIVE URGENCY Status: Acute (3) DM2 (diabetes mellitus, type 2) Status: Chronic Comment: continue accuchecks, insulin sliding scale (4) Hyperlipidemia Code(s): E78.5 - HYPERLIPIDEMIA, UNSPECIFIED Status: Chronic Qualifiers: Comment: stable (5) Hypothyroidism Code(s): E03.9 - HYPOTHYROIDISM, UNSPECIFIED Status: Chronic Qualifiers: Comment: stable (6) Obesity (BMI 30.0-34.9) Code(s): E66.9 - OBESITY, UNSPECIFIED Status: Chronic - Plan * PD catheter in, will need ot FU out patient to have it evaluated and make sure it flushes * SBP was above 200 this AM, I do not feel comfortable discharging the patient with such a high BP * dialysis per renal, patient has a [facility] in [place] * will likely DC one more time in the hospital for more ultrafiltration to help reduce BP * BP meds already adjusted by the cardiology team, will monitor for now * possible DC in AM if SBP is below 170mmHg * case and plan d/w patient and at length, they understood and agreed with this plan.
[2019-01-14] MEDS: Ondansetron PF 4 MG/2 ML Vial IVP PRN (18:02)
[2019-01-14] MEDS: Atorvastatin Calcium 20 MG TAB PO SCH (21:03)
[2019-01-15] MEDS: Levothyroxine Sodium 100 MCG TAB PO SCH (05:55)
[2019-01-15] MEDS: HumaLOG 300 UNITS/3 ML VIAL SC PRN (05:57)
[2019-01-15] MEDS: Insulin Glargine 14 UNITS in Pre-Filled Syringe SC SCH (07:53)
[2019-01-15] MEDS: Carvedilol 6.25 MG TAB PO SCH (07:54)
[2019-01-15] MEDS: Fish Oil 1,000 MG CAP PO SCH (07:55)
[2019-01-15] MEDS: Losartan 25 MG TAB PO SCH (07:55)
[2019-01-15] MEDS: Citalopram 20 MG TAB PO SCH (07:55)
[2019-01-15] MEDS: Multivit, Therapeutic 1 TAB PO SCH (07:55)
[2019-01-15] MEDS: hydrALAZINE 25 MG TAB PO SCH ×2 (07:55→13:37)
[2019-01-15] MEDS: cloNIDine 0.2 MG TAB PO SCH ×2 (07:55→13:37)
[2019-01-15] MEDS: Heparin 5,000 UNITS/ML VIAL SC SCH ×2 (07:56→14:16)
[2019-01-15] MEDS: Ferrous Sulfate 325 MG TAB PO SCH (07:56)
[2019-01-15] MEDS ORDERED: Losartan 25 MG TAB PO SCH (09:00)
[2019-01-15] MEDS ORDERED: NIFEdipine XL 90 MG TAB PO SCH (09:00)
[2019-01-15] MEDS: traMADol HCl 50 MG TAB PO PRN (09:47)
[2019-01-15] MEDS: buPROPion 75 MG TAB PO SCH (10:44)
--- NOTE | 2019-01-15 10:54 | PRG ---
DATE OF SERVICE: 01/15/2019 SUBJECTIVE: Ms. Canales is a 73-year-old white female, who was admitted for CHF and has been initiated on dialysis due to progressive azotemia and CHF. Currently, undergoing dialysis, she is tolerating said treatment. She has still episodes of anxiety and depression. No complaints of chest pain or shortness of breath. OBJECTIVE: VITAL SIGNS: Blood pressure 177/81, heart rate 86, respiratory rate is 17, temperature 98.3, and pulse ox 96%. GENERAL: Awake, alert, comfortable, not in overt distress. SKIN: Adequate turgor. HEENT: She has a slightly pale conjunctivae. Anicteric sclerae. NECK: No neck mass. No carotid bruits. No JVD. CHEST: No deformities. LUNGS: Clear breath sounds. HEART: Normal sinus rhythm. No murmurs. No gallops. No rubs. ABDOMEN: Globular, soft, and nontender. No masses. EXTREMITIES: Trace edema. No deformities. MEDICATIONS: Medications of January 15, 2019, reviewed. LABORATORY DATA: Laboratories of January 13, 2019, white count 7.4, hemoglobin 8.4. January 15, 2019, glucose 174. January 14, 2019, BUN 23, creatinine 3.12, and potassium 3.9. ASSESSMENT AND PLAN: 1. End-stage renal disease/chronic renal failure. Continuing current hemodialysis regimen. Fluid removal only as tolerated. Attempting 2 L of fluid removal today. 2. Labile hypertension. Continuing current blood pressure medications. Blood pressure is still noted to be on the high side. She is currently on several antihypertensive regimens. Our plan is to increase her losartan from 25 to 50 mg tablet once a day. Continue the rest of the blood pressure medications. 3. Anemia. Continuing weekly Epogen. The patient can be discharged from a renal point of view. She has an outpatient dialysis placement. Job ID: [id number]
[2019-01-15] MEDS ORDERED: Heparin 1,000 UNITS/ML VIAL ONE (11:11)
[2019-01-15 13:32] VITALS: TEMP 98.5
--- NOTE | 2019-01-15 14:21 | PDOC.EVN ---
Event Note - Event Note Event Note: DC SUMMARY #[id number]
[2019-01-15 15:30] VITALS: BP 161/52
--- NOTE | 2019-01-15 19:31 | DIS ---
DATE OF ADMISSION: 01/05/2019 DATE OF DISCHARGE: 01/15/2019 ADMITTING DIAGNOSES: Congestive heart failure, shortness of breath, worsening hypertension, end-stage renal disease, hypertensive emergency, type 2 diabetes mellitus, acute respiratory failure without hypoxia. DISCHARGE DIAGNOSES: Congestive heart failure, shortness of breath, worsening hypertension, end-stage renal disease, hypertensive emergency, type 2 diabetes mellitus, acute respiratory failure without hypoxia. HOSPITAL COURSE: This is a 73-year-old female admitted to the hospital with the above-mentioned complaints, was admitted to the Internal Medicine Team, followed also very closely by Nephrology, Surgery, Cardiology. The patient was started on hemodialysis with goals of changing to peritoneal dialysis. The patient had a peritoneal dialysis catheter placed and was advised to follow up in 2 weeks post discharge for evaluation of the catheter to make sure flushes. Hemodialysis arrangements were also made to [place]. Blood pressure medications were adjusted to try to target blood pressure medications appropriately. The patient at point in time of discharge was stable. Denied any nausea, vomiting, diarrhea, constipation, chest pain, fevers, or shortness of breath. Case and plan discussed with the patient and her at length. They understood and agreed with this plan. DISPOSITION: Home. FOLLOWUP: Follow up with PCP within 1-2 weeks, Nephrology within 1-2 weeks, dialysis on Thursday with [facility] in [place]. DIET: Renal. ACTIVITY: As tolerated with assistance as needed. CONDITION: Stable. PROGNOSIS: Guarded. Once again case and plan discussed with the patient and at length. They understood and agreed with this plan. Job ID: [id number]
== END 2019-01-15 17:32 | disposition home or self-care (01) | DRG 673 ==
LOC: ERS 14:39 → 2NO 22:03 → T4-A 01-14 17:09
PROVIDERS: ADMIT Internal Medicine; ATTEND Internal Medicine
PROC: 0JHD3XZ Insertion of Tunneled Vascular Access Device into Right Upper Arm Subcutaneous Tissue and Fascia, Percutaneous Approach (ICD-10-PCS; principal; 2019-01-10)
PROC: 05HN33Z Insertion of Infusion Device into Left Internal Jugular Vein, Percutaneous Approach (ICD-10-PCS; 2019-01-10)
PROC: B544ZZA Ultrasonography of Left Jugular Veins, Guidance (ICD-10-PCS; 2019-01-10)
PROC: 031C0ZF Bypass Left Radial Artery to Lower Arm Vein, Open Approach (ICD-10-PCS; 2019-01-12)
PROC: 0WHG43Z Insertion of Infusion Device into Peritoneal Cavity, Percutaneous Endoscopic Approach (ICD-10-PCS; 2019-01-12)
PROC: 0DQU4ZZ Repair Omentum, Percutaneous Endoscopic Approach (ICD-10-PCS; 2019-01-12)
PROC: 051 Upper Veins, Bypass (ICD-10-PCS; 2019-01-12)
PROC: 3E1M39Z Irrigation of Peritoneal Cavity using Dialysate, Percutaneous Approach (ICD-10-PCS; 2019-01-12)
DX: N17.9 Acute kidney failure, unspecified (principal); I50.33 Acute on chronic diastolic (congestive) heart failure; J96.00 Acute respiratory failure, unspecified whether with hypoxia or hypercapnia; I13.0 Hypertensive heart and chronic kidney disease with heart failure and stage 1 through stage 4 chronic kidney disease, or unspecified chronic kidney disease; E03.9 Hypothyroidism, unspecified; F32.9 Major depressive disorder, single episode, unspecified; D64.9 Anemia, unspecified; E11.22 Type 2 diabetes mellitus with diabetic chronic kidney disease; F41.9 Anxiety disorder, unspecified; K21.9 Gastro-esophageal reflux disease without esophagitis; I07.1 Rheumatic tricuspid insufficiency; E66.01 Morbid (severe) obesity due to excess calories; Z90.49 Acquired absence of other specified parts of digestive tract; E11.40 Type 2 diabetes mellitus with diabetic neuropathy, unspecified; Z90.710 Acquired absence of both cervix and uterus; Z88.0 Allergy status to penicillin; Z88.8 Allergy status to other drugs, medicaments and biological substances; Z79.899 Other long term (current) drug therapy; Z68.31 Body mass index [BMI] 31.0-31.9, adult
CPT/HCPCS: 36415; 36416; 70450; 71045; 80048; 80053; 82728; 83540; 83550; 83690; 83735; 83880; 83970; 84100; 84484; 85025; 86580; 86704; 86706; 86803; 87340; 93005; 93306; 93798; 93970; 94640; 96374; 96375; 96376; C1752; C1769; G0365; J0131; J0360; J0670; J0690; J1642; J1644; J1825; J1940; J1956; J2001; J2060; J2405; J2704; J2720; J3010; J3490; J7620; P9047; Q0162; Q5105; S0028

== ENCOUNTER 2019-02-03 06:52 | Day surgery (SDC) | payer MEDICARE ==
[2019-02-02 13:11] VITALS: BMI 32.1
--- NOTE | 2019-02-03 11:23 | SPC ---
EXAM: [facility] [place] INTRO CATH DIALY CIRC/AV S PROVIDED CLINICAL HISTORY: Non maturing left upper extremity arteriovenous dialysis fistula in a patient with end-stage renal di sease. COMPARISON: None TECHNIQUE: After informed consent was obtained, patient was placed on the angiography table in the supine positi on. Limited sonographic evaluation of the left upper extremity arteriovenous dialysis fistula was performed. An area just proximal to the level of the antecubital fossa was marked, and the area was m eticulously prepped and draped in the usual sterile fashion. The skin and subcutaneous tissues were infiltrated with buffered 1% lidocaine for local anesthesia. Utilizing concurrent real time ultrasound guidance, the cephalic vein outflow was accessed directed i n the venous direction with a 21-gauge micropuncture needle. A 4 Amharic introducer sheath was placed. A fistulogram and venogram to the SVC were performed. Manual compression was then applied to the cephalic vein outflow with reflux of contrast into the basilic vein outflow which is also patent. Manual compression was applied to the venous outflows, and contrast was injected to reflux th e arterial venous anastomosis which also appears patent. The introducer sheath was removed, and hemostasis was achieved with direct pressure. Dry sterile dres sing was placed. The patient tolerated the procedure well and without immediate complication. Fluoroscopy: Total fluoroscopy time 0.9 minutes, total dose: 10,729 mGy square centimeter FINDINGS: Patient has a left upper extremity arteriovenous dialysis fistula with what appears to be radial nani ry to antecubital arteriovenous anastomosis which does appear patent. Venous outflow is via both the cephalic and basilic veins which are widely patent with patent central veins to the level of the SVC. No focal narrowing is seen. A tunneled right internal jugular vein hemodialysis catheter is noted in place. IMPRESSION: Patent left upper extremity arteriovenous dialysis fistula with patent venous outflow via the cephali c and basilic veins.
== END 2019-02-03 10:15 | disposition home or self-care (01) ==
LOC: SPEC 06:52
PROVIDERS: ATTEND Specialist
PROC: B50W1ZZ Plain Radiography of Dialysis Shunt/Fistula using Low Osmolar Contrast (ICD-10-PCS; principal; 2019-02-03)
DX: I12.0 Hypertensive chronic kidney disease with stage 5 chronic kidney disease or end stage renal disease (principal); N18.6 End stage renal disease; E11.22 Type 2 diabetes mellitus with diabetic chronic kidney disease; E78.00 Pure hypercholesterolemia, unspecified; F32.9 Major depressive disorder, single episode, unspecified; Z99.2 Dependence on renal dialysis; Z98.890 Other specified postprocedural states; Z88.0 Allergy status to penicillin; Z88.8 Allergy status to other drugs, medicaments and biological substances; Z79.4 Long term (current) use of insulin; Z79.899 Other long term (current) drug therapy
CPT/HCPCS: 36901

== ENCOUNTER 2019-08-30 00:46 | Emergency (ER) | payer MEDICARE ==
[2019-08-30 01:58] LABS: #Eosinphils 0.2 thou/uL (0.0-0.7); #Lymphocytes 1.3 thou/uL (1.20-3.40); #Monocytes 0.7 thou/uL (0.11-0.59); #Neutrophils 4.5 thou/uL (1.40-6.50); %Basophils 0.5 % (0.0-1.0); %Monocytes 10.3 % (0.0-10.0); %Neutrophils 67.2 % (42.0-75.0); Hemoglobin 9.6 g/dL (12.0-16.0); Mean Corpuscular HGB CONC 33.8 g/dL (32.0-36.0); Mean Corpuscular Hemoglobin 31.8 pg (27.0-31.0); Mean Platelet Volume 7.6 fL (7.4-10.4); Platelet Count 233 thou/uL (130-400); RBC Distribution Width 11.3 % (11.5-14.5); Red Blood Cell (RBC) Count 3.03 mill/uL (4.20-5.40); White Blood Cell (WBC) Count 6.7 thou/uL (4.8-10.8)
[2019-08-30 02:18] LABS: ALT (SGPT) 27 U/L (8-55); AST (SGOT) 21 U/L (5-34); Albumin 3.6 g/dL (3.4-4.8); Alkaline Phosphatase 99 U/L (40-110); Anion Gap 13 mmol/L (10-20); BUN (Urea Nitrogen) 61 mg/dL (9.8-20.1); Bilirubin, Total 0.4 mg/dL (0.2-1.2); Calc. Creatinine Clearance 0 mL/min (70-130); Calcium 8.8 mg/dL (7.8-10.44); Carbon Dioxide 28 mmol/L (23-31); Chloride 102 mmol/L (98-107); Estimated GFR-MDRD 6; Globulin 2.9 g/dL (2.4-3.5); Glucose 201 mg/dL (83-110); Potassium 4.1 mmol/L (3.5-5.1); Protein, Total 6.5 g/dL (6.0-8.3); Sodium 139 mmol/L (136-145)
== END 2019-08-30 03:18 | disposition home or self-care (01) ==
LOC: ERS 00:46
DX: K59.00 Constipation, unspecified (principal); N93.9 Abnormal uterine and vaginal bleeding, unspecified; K64.4 Residual hemorrhoidal skin tags; F32.9 Major depressive disorder, single episode, unspecified; E11.9 Type 2 diabetes mellitus without complications; D51.0 Vitamin B12 deficiency anemia due to intrinsic factor deficiency; I11.0 Hypertensive heart disease with heart failure; I50.9 Heart failure, unspecified; Z87.442 Personal history of urinary calculi; Z79.4 Long term (current) use of insulin; Z79.899 Other long term (current) drug therapy; Z79.891 Long term (current) use of opiate analgesic
CPT/HCPCS: 36415; 80053; 85025; 99283

== ENCOUNTER 2019-12-23 16:47 | Inpatient (IN) | payer MEDICARE, OTHER ==
[2019-12-23] MEDS ORDERED: Acetaminophen 500 MG TAB ONE (17:30)
[2019-12-23 17:31] LABS: #Eosinphils 0.1 thou/uL (0.0-0.7); #Lymphocytes 1.5 thou/uL (1.20-3.40); #Monocytes 1.3 thou/uL (0.11-0.59); #Neutrophils 12.8 thou/uL (1.40-6.50); %Basophils 0.2 % (0.0-1.0); %Eosinophils 0.5 % (0.0-10.0); %Lymphocytes 9.4 % (21.0-51.0); %Neutrophils 81.9 % (42.0-75.0); Mean Corpuscular HGB CONC 32.4 g/dL (32.0-36.0); Mean Corpuscular Volume 95.8 fL (78.0-98.0); Mean Platelet Volume 7.5 fL (7.4-10.4); Platelet Count 316 thou/uL (130-400); RBC Distribution Width 12.2 % (11.5-14.5); Red Blood Cell (RBC) Count 3.56 mill/uL (4.20-5.40); White Blood Cell (WBC) Count 15.7 thou/uL (4.8-10.8)
[2019-12-23 17:45] LABS: Bilirubin Negative (Negative); Blood, Urine Negative (Negative); Clarity Clear (Clear); Glucose, Urine (Dipstick) Normal (Negative); Leukocyte 25 Leu/uL (Negative); Nitrite Negative (Negative); Protein, Urine (Dipstick) 70 mg/dL (Neg-Trace); RBC/HPF None Seen HPF (0-3); Squamous Epithelial 0-3 HPF (0-3); Urobilinogen Normal mg/dL (Less than 2)
[2019-12-23 17:51] LABS: ALT (SGPT) 18 U/L (8-55); AST (SGOT) 14 U/L (5-34); Albumin 3.6 g/dL (3.4-4.8); Alkaline Phosphatase 93 U/L (40-110); Anion Gap 20 mmol/L (10-20); BUN (Urea Nitrogen) 57 mg/dL (9.8-20.1); Bilirubin, Total 0.6 mg/dL (0.2-1.2); Calc. Creatinine Clearance 0 mL/min (70-130); Calcium 9.1 mg/dL (7.8-10.44); Carbon Dioxide 28 mmol/L (23-31); Chloride 99 mmol/L (98-107); Estimated GFR-MDRD 4; Potassium 4.1 mmol/L (3.5-5.1); Protein, Total 6.6 g/dL (6.0-8.3); Sodium 143 mmol/L (136-145)
[2019-12-23 17:55] LABS: Bacteria/HPF None Seen HPF (None Seen); Yeast-Budding 2+ HPF (None Seen)
[2019-12-23 17:59] LABS: Glucose 54 mg/dL (83-110)
[2019-12-23 18:04] LABS: Base Excess-Venous 4.4 mmol/L (-2.0 to 3.0); Bicarbonate (HCO3v) 29.6 mmol/L (22.0-28.0); CO2 Tension (PvCO2) 45.4 mmHg (40.0-50.0); Chloride 103 mmol/L (98-107); Hemoglobin - Calc 11.9 g/dL (12.0-16.0); Potassium 3.8 mmol/L (3.5-5.1); Sodium 141 mmol/L (138-145)
[2019-12-23] MEDS ORDERED: Dextrose 50% Abboject 50 ML SYRINGE ONE (18:04)
--- NOTE | 2019-12-23 18:05 | RAD ---
PORTABLE CHEST: 12/23/19 PROVIDED CLINICAL HISTORY: Dyspnea. FINDINGS: Comparison examination earlier same date. Left mid lung zone consolidation is redemonstrated. Lungs a ppear otherwise clear. No definite pleural fluid or pneumothorax apparent. Cardiac silhouette remains enlarged. IMPRESSION: Persistent left mid lung zone consolidation. Correlate with concerns for pneumonia. Follow-up is jamar mmended. POS: JHOANA
--- NOTE | 2019-12-23 18:35 | CT ---
CT head noncontrast HISTORY: Altered mental status. COMPARISON: 01/10/2019. FINDINGS: There is no evidence of acute intracranial hemorrhage or infarct. The ventricles appear nor mal in size, shape and position. Mild chronic ischemic small vessel disease throughout the periventricular white matter. Old lacunar infarct at the left basal ganglia is stable. Visualized paranasal sinuses remain well aerated. Tiny benign-appearing in the ostial lesion at the a nterior floor of the right middle cranial fossa is unchanged. IMPRESSION : Chronic-type findings are stable. No active cardiopulmonary abnormalities are demonstrated.
[2019-12-23] MEDS ORDERED: Acetaminophen 650 MG Suppository PR PRN (19:58)
--- NOTE | 2019-12-23 23:10 | PDOC.HHP ---
Hospitalist HPI - History of Present Illness altetred mental state History of Present Illness: Case of an 74y/o female with pmhx of chf, hypothyroidism, htn, dm and pernicious anemia who comes to hospital sent by pcp due to generalize weakness altered mental state and hypoxia. patient is a poor historian and part of the h/ po was taken from medical records. patient was taken to see her pcp, she cannot recall why and when pcp saw her sent here to the ED to be evaluated. At the ED patient was found with hypoxia altered mental status and fever with a consolidation on cxr for which hospitalist was called for evaluation and management. Hospitalist ROS - Review of Systems All other systems reviewed; all pertinent +/- noted in HPI/Subj Hospitalist History - Past Medical History Cardiac: reports: CHF, HTN Pulmonary: reports: congestive heart failure, high cholesterol, hypertension Endocrine: reports: Diabetes, Hypothyroidism - Past Surgical History Past Surgical History: reports: Appendectomy, Cholecystectomy, Hysterectomy, Tonsillectomy - Family History Family History: reports: hyperlipidemia, hypertension - Social History Smoking Status: Never smoker Alcohol: reports: None Drugs: reports: none Living Situation: With Family Activity level: independent ambulation - Exam General Appearance: ill appearing Eye: PERRL, anicteric sclera ENT: normocephalic atraumatic, no oropharyngeal lesions Neck: supple, symmetric, no JVD Heart: RRR, no murmur, no gallops Respiratory: CTAB, no wheezes, no rales, no ronchi Gastrointestinal: soft, non-tender, non-distended, normal bowel sounds Extremities: no cyanosis, no clubbing, no edema Skin: normal turgor, no lesions, no rashes Neurological: cranial nerve grossly intact, normal sensation to touch Musculoskeletal: normal tone, normal strength, no muscle wasting Psychiatric: normal affect, normal behavior, A&O x 3 Hospitalist Results - Labs Result Diagrams: 12/23/19 17:18 12/23/19 17:18 Lab results: WBC 15.7 thou/uL (4.8-10.8) H 12/23/19 17:18 Hgb 11.0 g/dL (12.0-16.0) L 12/23/19 17:18 Hct 34.1 % (36.0-47.0) L 12/23/19 17:18 MCV 95.8 fL (78.0-98.0) 12/23/19 17:18 Plt Count 316 thou/uL (130-400) 12/23/19 17:18 Neutrophils % 81.9 % (42.0-75.0) H 12/23/19 17:18 VBG pCO2 45.4 mmHg (40.0-50.0) 12/23/19 17:56 VBG pO2 90.0 mmHg (35.0-45.0) H 12/23/19 17:56 Sodium 143 mmol/L (136-145) 12/23/19 17:18 Potassium 4.1 mmol/L (3.5-5.1) 12/23/19 17:18 Chloride 99 mmol/L (98-107) 12/23/19 17:18 Carbon Dioxide 28 mmol/L (23-31) 12/23/19 17:18 BUN 57 mg/dL (9.8-20.1) H 12/23/19 17:18 Creatinine 8.92 mg/dL (0.6-1.1) H 12/23/19 17:18 Glucose 54 mg/dL (83-110) L* 12/23/19 17:18 Lactic Acid 0.7 mmol/L (0.5-2.2) 12/23/19 17:18 Calcium 9.1 mg/dL (7.8-10.44) 12/23/19 17:18 Total Bilirubin 0.6 mg/dL (0.2-1.2) 12/23/19 17:18 AST 14 U/L (5-34) 12/23/19 17:18 ALT 18 U/L (8-55) 12/23/19 17:18 Alkaline Phosphatase 93 U/L (40-110) 12/23/19 17:18 Troponin I 0.026 ng/mL (< 0.028) 12/23/19 17:18 B-Natriuretic Peptide 278.3 pg/mL (0-100) H 12/23/19 17:18 Serum Total Protein 6.6 g/dL (6.0-8.3) 12/23/19 17:18 Albumin 3.6 g/dL (3.4-4.8) 12/23/19 17:18 Urine Ketones Negative mg/dL (Negative) 05/08/20 17:27 Urine Blood Negative (Negative) 12/23/19 17:27 Urine Nitrite Negative (Negative) 12/23/19 17:27 Ur Leukocyte Esterase 25 [place]/uL (Negative) 12/23/19 17:27 Urine RBC None Seen HPF (0-3) 12/23/19 17:27 Urine WBC 4-6 HPF (0-3) A 12/23/19 17:27 Ur Squamous Epith Cells 0-3 HPF (0-3) 12/23/19 17:27 Urine Bacteria None Seen HPF (None Seen) 12/23/19 17:27 - Radiology Interpretation Chest x-ray Additional Comment: L lung consolidation Hospitalist H&P A/P - Problem (1) Pneumonia Code(s): J18.9 - PNEUMONIA, UNSPECIFIED ORGANISM Status: Acute (2) Altered mental status Code(s): R41.82 - ALTERED MENTAL STATUS, UNSPECIFIED Status: Acute (3) Hypoxia Code(s): R09.02 - HYPOXEMIA Status: Acute (4) DM2 (diabetes mellitus, type 2) Status: Chronic (5) HTN (hypertension) Code(s): I10 - ESSENTIAL (PRIMARY) HYPERTENSION Status: Chronic (6) Hypothyroidism Code(s): E03.9 - HYPOTHYROIDISM, UNSPECIFIED Status: Chronic Qualifiers: - Plan Plan: penumonia - patient with wbc elevation and consolidation on cxr with hypoxia on 86% at RA. patient started on ivfs, blood and sputum cultures were taken, patient was started on abx with rocephin and azithromycin. hypoxia - 02 supplementla o2 will be provided, wean as tolerated raymon over ckd - pts creatinine at 8, hx of ckd 4, seems to have worsen will consult precision mechanical instrument maker. altered mental state - likely secondary to pneumonia, fluctuates will r/o metabolic causes with b12 tsh and ammonia levels continue home meds for chronic conditons
[2019-12-24] MEDS: Sodium Chloride 0.9% 1,000 ML IV SCH ×2 (00:19→21:26)
[2019-12-24] MEDS: Acetaminophen 325 MG TAB PO PRN ×3 (00:20→15:53)
[2019-12-24] MEDS: cefTRIAXone\\ROCEPHIN 2 GM in Sodium Chloride 0.9% 100 ML IVPB SCH ×2 (00:20→20:16)
[2019-12-24] MEDS: Azithromycin 500 MG in Sodium Chloride 0.9% 250 ML 250 ML IVPB SCH ×2 (00:58→21:26)
[2019-12-24] MEDS ORDERED: Dextrose 5% in Water 1,000 ML IV PRN (03:56)
[2019-12-24] MEDS ORDERED: Dextrose 50% Abboject 50 ML SYRINGE SLOW IVP PRN (03:56)
[2019-12-24 04:08] LABS: ALT (SGPT) 14 U/L (8-55); AST (SGOT) 13 U/L (5-34); Albumin 2.8 g/dL (3.4-4.8); Alkaline Phosphatase 76 U/L (40-110); Anion Gap 16 mmol/L (10-20); BUN (Urea Nitrogen) 56 mg/dL (9.8-20.1); Bilirubin, Total 0.4 mg/dL (0.2-1.2); Calc. Creatinine Clearance 7 mL/min (70-130); Calcium 8.6 mg/dL (7.8-10.44); Carbon Dioxide 26 mmol/L (23-31); Chloride 101 mmol/L (98-107); Estimated GFR-MDRD 4; Glucose 147 mg/dL (83-110); Potassium 4.1 mmol/L (3.5-5.1); Protein, Total 5.8 g/dL (6.0-8.3); Sodium 139 mmol/L (136-145)
[2019-12-24 04:09] LABS: Band 4 % (5-11); Hemoglobin 9.3 g/dL (12.0-16.0); Lymphocytes 10 % (21-51); MDiff Complete? YES; Mean Corpuscular Hemoglobin 30.8 pg (27.0-31.0); Mean Corpuscular Volume 96.4 fL (78.0-98.0); Mean Platelet Volume 7.9 fL (7.4-10.4); Monocytes 6 % (0-10); Neutrophil 80 % (42-75); Platelet Count 233 thou/uL (130-400); RBC Distribution Width 12.1 % (11.5-14.5); Red Blood Cell (RBC) Count 3.03 mill/uL (4.20-5.40); White Blood Cell (WBC) Count 15.2 thou/uL (4.8-10.8)
[2019-12-24 04:33] LABS: Thyroid Stimulating Hormone 0.7159 uIU/mL (0.35-4.94)
[2019-12-24] MEDS: Levothyroxine Sodium 100 MCG TAB PO SCH (06:03)
[2019-12-24] MEDS: Enoxaparin Sodium 30 MG/0.3 ML SYRINGE SC SCH (08:19)
--- NOTE | 2019-12-24 13:08 | PDOC.HOSPP ---
- Subjective Encounter Date: 12/24/19 Encounter Time: 13:06 Subjective: Ms. Canales was seen today in follow-up of pneumonia. She says she feels a little better. She continues to note some pain in the left side of her chest, mostly when she breathes. She denies feeling short of breath. - Objective Vital Signs & Weight: Vital Signs (12 hours) Temp Pulse Resp BP Pulse Ox 12/24/19 08:30 101.3 F H 77 16 167/74 H 92 L 12/24/19 04:00 62 18 138/80 92 L Weight Weight 169 lb 1.6 oz Result Diagrams: 12/24/19 03:29 12/24/19 03:29 Additional Labs: Accuchecks 12/24/19 12/24/19 12/23/19 04:37 00:58 18:54 POC Glucose 140 H 103 133 H Hospitalist ROS - Medication Medications: Active Medications Generic Name Dose Route Start Last Admin Trade Name Freq PRN Reason Stop Dose Admin Acetaminophen 650 mg 12/23/19 19:58 12/24/19 08:34 Tylenol PO 650 mg Q4H PRN Administration Headache/Fever/Mild Pain (1-3) Enoxaparin Sodium 30 mg 12/24/19 09:00 12/24/19 08:19 Lovenox SC 30 mg 0900 MIKE Administration Azithromycin 500 mg/ Sodium 250 mls @ 250 mls/hr 12/23/19 21:00 12/24/19 00: 58 Chloride IVPB 250 mls Q24HR MIKE Administration Ceftriaxone Sodium 2 gm/ 100 mls @ 200 mls/hr 12/23/19 20:00 12/24/19 00:20 Sodium Chloride IVPB 100 mls Q24HR MIKE Administration Sodium Chloride 1,000 mls @ 50 mls/hr 12/23/19 20:00 12/24/19 00:19 Normal Saline 0.9% IV 1,000 mls .Q20H MIKE Administration Levothyroxine Sodium 100 mcg 12/24/19 06:00 12/24/19 06:03 Synthroid PO 100 mcg 0600 MIKE Administration - Exam Eye: PERRL, anicteric sclera Heart: RRR, no murmur, no gallops, no rubs, normal peripheral pulses Respiratory: no wheezes, no ronchi, normal chest expansion (+ rales at the left base) Gastrointestinal: soft, non-tender, non-distended, normal bowel sounds, no palpable masses Extremities: no cyanosis, no edema Hosp A/P (1) Pneumonia Code(s): J18.9 - PNEUMONIA, UNSPECIFIED ORGANISM Status: Acute (2) ESRD (end stage renal disease) on dialysis Code(s): N18.6 - END STAGE RENAL DISEASE; Z99.2 - DEPENDENCE ON RENAL DIALYSIS Status: Acute (3) DM2 (diabetes mellitus, type 2) Status: Chronic (4) GERD (gastroesophageal reflux disease) Code(s): K21.9 - GASTRO-ESOPHAGEAL REFLUX DISEASE WITHOUT ESOPHAGITIS Status: Chronic Qualifiers: (5) HTN (hypertension) Code(s): I10 - ESSENTIAL (PRIMARY) HYPERTENSION Status: Chronic - Plan * Acute respiratory failure with hypoxemia- her oxygen saturation continue to be in the mid 80's off and on. Will continue Rocephin and Azithromycin * Continue supplemental oxygen * COVID screen is pending * ESRD on PD- her Applier has been consulted for maintenance HD * HTN - blood pressure is a bit elevated, will re-start her home medications * DM- will re-start insulin as well as a SSI
[2019-12-24] MEDS ORDERED: Cyanocobalamin 1000 MCG/ML VIAL IM SCH (13:15)
--- NOTE | 2019-12-24 14:30 | CON ---
DATE OF CONSULTATION: HISTORY OF PRESENT ILLNESS: Ms. Canales is a 74-year-old white female with ESRD from a presumed diabetic nephropathy, currently on CCPD, and admitted for confusion. She was found to be hypoxic and has a pneumonia. She is being ruled out for COVID. The patient denies any associated fever. We are being consulted for her maintenance nocturnal peritoneal dialysis. This morning, she voices no new complaints. Her breathing is much improved. She is mentating well. REVIEW OF SYSTEMS: Positive for confusion. Positive for cough. Denies any fever. Positive for mild shortness of breath. No chest pain. No nausea. No vomiting. Appetite decreased. Energy level is decreased. No gross hematuria. No dysuria. No hematochezia. No melena. No hematemesis. No syncopal episode. Occasional abdominal pain. Occasional joint pains. MEDICATIONS: Currently, the patient is on: 1. Acetaminophen 650 mg q.4 p.r.n. 2. Atorvastatin 20 mg nightly. 3. Azithromycin 500 mg IV daily. 4. Ceftriaxone 2 g IV q.24 h. 5. Lovenox 30 mg subcutaneous daily. 6. Insulin glargine 15 units subcutaneous nightly. 7. Levothyroxine 100 mcg daily. 8. Normal saline 50 mL an hour. PAST MEDICAL HISTORY: 1. ESRD from diabetic nephropathy. 2. Type 2 diabetes mellitus. 3. Chronic diastolic heart failure. 4. Diabetic neuropathy. 5. Chronic leg edema. 6. Depression. 7. Hyperlipidemia. 8. Hypothyroidism. 9. Longstanding hypertension. 10. GERD. 11. 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 12. Recent diagnosis of pneumonia. PAST SURGICAL HISTORY: 1. Status post PD catheter placement. 2. Status post cuffed hemodialysis catheter placement. 3. Status post upper GI endoscopy. 4. Status post lower GI endoscopy. 5. Status post thyroidectomy. 6. Status post right shoulder surgery. 7. Status post cholecystectomy. 8. Status post hysterectomy. ALLERGIES: PENICILLIN AND FLEXERIL. TRAUMA: None. IMMUNIZATIONS: Up-to-date. HOSPITALIZATIONS: Please see past medical history. SOCIAL HISTORY: The patient lives in [place]. She is . She has 2 children. Sedentary lifestyle. No smoking. No alcohol. No IV drug abuse. Status post blood transfusion. FAMILY HISTORY: No family history of ESRD. PHYSICAL EXAMINATION: VITAL SIGNS: Blood pressure 167/74, temperature 101.3, respiratory rate 16, O2 saturation 92%, and heart rate 77. GENERAL: Awake, alert, and comfortable, not in overt distress. SKIN: Adequate turgor. HEENT: She has slightly pale conjunctivae. Anicteric sclerae. NECK: No neck mass. No carotid bruits. No JVD. CHEST: No deformities. LUNGS: Decreased breath sounds. HEART: Normal sinus rhythm. No murmur. No gallops. No rubs. ABDOMEN: Globular, soft, and nontender. No masses. Positive for PD catheter. EXTREMITIES: No edema. No deformities. NEUROLOGIC: The patient is awake, oriented, following commands. IMAGING STUDIES: Chest x-ray of 12/23/2019, cardiomegaly, left lower lobe airspace disease, suggestive of pneumonia. CT scan of the brain on 12/23/2019, shows no acute intracranial abnormality. Chronic type findings are seen. There is an old lacunar infarct at the left basal ganglia. LABORATORY DATA: On 12/24/2019: White count 15.2 and hemoglobin 9.3. Sodium 139, potassium 4.1, chloride 101, carbon dioxide 26, BUN 56, creatinine 8.81, glucose 147, and calcium 8.6. AST 13, ammonia is 12, and albumin 2.8. ASSESSMENT AND PLAN: 1. Pneumonia, currently on IV antibiotics. The patient is being ruled out for COVID infection. Continue supportive care. 2. End-stage renal disease, stable. We will review of the last Kt/V, suggests she is adequately dialyzed with the current dialysis regimen. We will continue current CCPD regimen with this patient. I plan to do an 8-hour peritoneal dialysis using a 1.5% alternating with 2.5% PD solution. Overall prognosis remains guarded. Job ID: [id number]
[2019-12-24 17:10] LABS: SARS-CoV-2 MS2 Positive; SARS-CoV-2 N Gene Negative; SARS-CoV-2 S Gene Negative; SARS-CoV-2 orf1ab Negative
[2019-12-24] MEDS: hydrALAZINE 25 MG TAB PO SCH ×2 (18:07→20:20)
[2019-12-24 18:30] LABS: HBSAg Index 0.12 S/CO (0-0.99); Hep B Surf Ag Non-Reactive S/CO (NonReactive)
[2019-12-24] MEDS: HumaLOG 300 UNITS/3 ML VIAL SC PRN (18:51)
[2019-12-24] MEDS: Insulin Glargine 15 UNITS in Pre-Filled Syringe 1 EACH SC SCH (20:16)
[2019-12-24] MEDS: traMADol HCl 50 MG TAB PO SCH (20:19)
[2019-12-24] MEDS: Gabapentin 300 MG CAP PO SCH (20:19)
[2019-12-24] MEDS: Fish Oil 1,000 MG CAP PO SCH (20:20)
[2019-12-24] MEDS: Carvedilol 6.25 MG TAB PO SCH (20:20)
[2019-12-24] MEDS: buPROPion 75 MG TAB PO SCH (20:20)
[2019-12-24] MEDS: Ferrous Sulfate 325 MG TAB PO SCH (20:20)
[2019-12-24] MEDS: cloNIDine 0.1 MG TAB PO SCH (20:20)
[2019-12-24] MEDS: Atorvastatin Calcium 20 MG TAB PO SCH (20:21)
[2019-12-24] MEDS ORDERED: Insulin Glargine 15 UNITS in Pre-Filled Syringe 1 EACH SC SCH (21:00)
[2019-12-25 04:32] LABS: #Eosinphils 0.1 thou/uL (0.0-0.7); #Lymphocytes 1.3 thou/uL (1.20-3.40); #Monocytes 1.3 thou/uL (0.11-0.59); #Neutrophils 13.3 thou/uL (1.40-6.50); %Basophils 0.1 % (0.0-1.0); %Eosinophils 0.4 % (0.0-10.0); %Monocytes 8.2 % (0.0-10.0); %Neutrophils 83.3 % (42.0-75.0); Hemoglobin 9.6 g/dL (12.0-16.0); Mean Corpuscular HGB CONC 31.6 g/dL (32.0-36.0); Mean Corpuscular Hemoglobin 30.7 pg (27.0-31.0); Mean Corpuscular Volume 96.9 fL (78.0-98.0); Mean Platelet Volume 7.7 fL (7.4-10.4); Platelet Count 275 thou/uL (130-400); RBC Distribution Width 12.2 % (11.5-14.5); Red Blood Cell (RBC) Count 3.13 mill/uL (4.20-5.40)
[2019-12-25 04:43] LABS: Anion Gap 17 mmol/L (10-20); BUN (Urea Nitrogen) 63 mg/dL (9.8-20.1); Calc. Creatinine Clearance 7 mL/min (70-130); Calcium 8.6 mg/dL (7.8-10.44); Carbon Dioxide 24 mmol/L (23-31); Chloride 102 mmol/L (98-107); Estimated GFR-MDRD 5; Glucose 219 mg/dL (83-110); Potassium 3.9 mmol/L (3.5-5.1); Sodium 139 mmol/L (136-145)
[2019-12-25] MEDS: Levothyroxine Sodium 100 MCG TAB PO SCH (07:46)
[2019-12-25] MEDS: HumaLOG 300 UNITS/3 ML VIAL SC PRN (07:47)
[2019-12-25] MEDS ORDERED: Vancomycin HCl 1.5 GM in Sodium Chloride 0.9% 250 ML 300 ML IVPB SCH (08:00)
[2019-12-25] MEDS ORDERED: Vancomycin 1 GM in Premix Bag 1 BAG IVPB SCH ×2 (08:00→09:00)
[2019-12-25] MEDS ORDERED: Vancomycin HCl 500 MG in Sodium Chloride 0.9% 100 ML IVPB SCH (08:00)
[2019-12-25] MEDS ORDERED: Vancomycin Sliding Scale 1 EACH FS ONE (08:00)
[2019-12-25] MEDS ORDERED: Vancomycin HCl 1.25 GM in Sodium Chloride 0.9% 250 ML 250 ML IVPB SCH (08:00)
[2019-12-25] MEDS ORDERED: HOLD VANCOMYCIN FOR LEVEL >20 FS SCH (08:00)
[2019-12-25] MEDS ORDERED: Vancomycin HCl 750 MG in Sodium Chloride 0.9% 250 ML 250 ML IVPB SCH (08:00)
[2019-12-25] MEDS ORDERED: Vancomycin 1.5 GRAM/300 ML BAG 1.5 GM in Premix Bag 1 BAG IVPB SCH (08:15)
[2019-12-25] MEDS ORDERED: Cefepime 1 GM in Sodium Chloride 0.9% 100 ML IVPB SCH (09:00)
--- NOTE | 2019-12-25 10:16 | PRG ---
DATE OF SERVICE: 12/25/2019 SERVICE: Renal Medicine. SUBJECTIVE: Ms. Canales is a 74-year-old white female with ESRD-on CCPD/peritoneal dialysis and initially admitted for confusion. She was found to have a pneumonia. She was also ruled out for COVID-19. This morning, she has been feeling better. She still complains of pleuritic chest pain on deep inspiration. No mid sternal chest pain. OBJECTIVE: VITAL SIGNS: Blood pressure 144/80, heart rate 78, respiratory rate 18, temperature 99, and pulse ox 94% on 4 L. GENERAL: Awake, alert, comfortable, not in overt distress. SKIN: Adequate turgor. HEENT: Slightly pale conjunctivae. Anicteric sclerae. NECK: No neck mass. No carotid bruits. No JVD. CHEST: No deformities. LUNGS: Decreased breath sounds. HEART: Normal sinus rhythm. No murmur. No gallops. No rubs. ABDOMEN: Globular, soft, nontender. No masses. EXTREMITIES: No edema. No deformities. MEDICATIONS: Of December 25, 2019, was reviewed. LABORATORY DATA: Of December 25, 2019; white count 16 and hemoglobin 9.6. Sodium 139, potassium 3.9, chloride 102, carbon dioxide 24, BUN 63, creatinine 8.53, glucose 219, and calcium 8.6. ASSESSMENT AND PLAN: 1. End-stage renal disease, stable. We will continue current continuous cyclic peritoneal dialysis regimen. I did note that we had minimal ultrafiltration with peritoneal dialysis. We will change peritoneal dialysis solution to a 2.5% peritoneal dialysis solution for tonight. Last night, she was using an alternating 1.5 with 2.5% peritoneal dialysis solution. She is tolerating said treatment. 2. Pneumonia, on IV antibiotics. Clinically improving. Agree with current management. Job ID: [id number]
[2019-12-25] MEDS: traMADol HCl 50 MG TAB PO SCH ×2 (10:42→20:33)
[2019-12-25] MEDS: Enoxaparin Sodium 30 MG/0.3 ML SYRINGE SC SCH (10:42)
[2019-12-25] MEDS: Gabapentin 300 MG CAP PO SCH ×2 (10:43→20:32)
[2019-12-25] MEDS: Carvedilol 6.25 MG TAB PO SCH ×2 (10:43→20:34)
[2019-12-25] MEDS: buPROPion 75 MG TAB PO SCH ×2 (10:43→20:34)
[2019-12-25] MEDS: Losartan 25 MG TAB PO SCH (10:43)
[2019-12-25] MEDS: NIFEdipine XL 60 MG TAB PO SCH (10:43)
[2019-12-25] MEDS: cloNIDine 0.1 MG TAB PO SCH ×2 (10:44→20:33)
[2019-12-25] MEDS: hydrALAZINE 25 MG TAB PO SCH ×4 (10:44→20:35)
[2019-12-25] MEDS: Multivit, Therapeutic 1 TAB PO SCH (10:44)
[2019-12-25] MEDS: Fish Oil 1,000 MG CAP PO SCH ×2 (10:44→20:32)
[2019-12-25] MEDS: Amlodipine 5 MG TAB PO SCH (10:44)
[2019-12-25] MEDS: Cefepime 1 GM in Sodium Chloride 0.9% 100 ML IVPB SCH (10:45)
[2019-12-25] MEDS: Isosorbide Mononitrate (ER) 30 MG TAB PO SCH (10:45)
[2019-12-25] MEDS: Ferrous Sulfate 325 MG TAB PO SCH ×2 (10:45→20:34)
[2019-12-25] MEDS: Insulin Glargine 15 UNITS in Pre-Filled Syringe 1 EACH SC SCH ×2 (11:38→20:35)
--- NOTE | 2019-12-25 17:03 | PDOC.HOSPP ---
- Subjective Encounter Date: 12/25/19 Encounter Time: 17:02 Subjective: Ms. Canales was seen today in follow-up of Pneumonia. She notes some continues dyspnea, and chest pain when she coughs. She does however feel a bit better. - Objective Vital Signs & Weight: Vital Signs (12 hours) Temp Pulse Pulse Resp BP BP Pulse Ox 12/25/19 15:09 98.4 F 71 16 109/72 93 L 12/25/19 11:33 98.2 F 75 16 125/58 L 95 12/25/19 09:26 81 158/69 H 12/25/19 07:43 99 F 78 18 144/80 H 94 L Weight Weight 169 lb Result Diagrams: 12/25/19 04:15 12/25/19 04:15 Additional Labs: Accuchecks 12/25/19 12/25/19 12/24/19 10:49 06:39 20:20 POC Glucose 149 H 227 H 209 H 12/24/19 18:14 POC Glucose 223 H Hospitalist ROS - Medication Medications: Active Medications Generic Name Dose Route Start Last Admin Trade Name Freq PRN Reason Stop Dose Admin Acetaminophen 650 mg 12/23/19 19:58 12/24/19 15:53 Tylenol PO 650 mg Q4H PRN Administration Headache/Fever/Mild Pain (1-3) Amlodipine Besylate 5 mg 12/25/19 09:00 12/25/19 10:44 Norvasc PO 5 mg DAILY MIKE Administration Atorvastatin Calcium 20 mg 12/24/19 21:00 12/24/19 20:21 Lipitor PO 20 mg HS MIKE Administration Bupropion HCl 75 mg 12/24/19 21:00 12/25/19 10:43 Wellbutrin PO 75 mg BID MIKE Administration Carvedilol 12.5 mg 12/24/19 21:00 12/25/19 10:43 Coreg PO 12.5 mg BID MIKE Administration Clonidine 0.1 mg 12/24/19 21:00 12/25/19 10:44 Catapres PO 0.1 mg BID MIKE Administration Enoxaparin Sodium 30 mg 12/24/19 09:00 12/25/19 10:42 Lovenox SC 30 mg 0900 MIKE Administration Ferrous Sulfate 325 mg 12/24/19 21:00 12/25/19 10:45 Feosol PO 325 mg BID MIKE Administration Fish Oil 1,000 mg 12/24/19 21:00 12/25/19 10:44 Fish Oil PO 1,000 mg BID MIKE Administration Gabapentin 600 mg 12/24/19 21:00 12/25/19 10:43 Neurontin PO 600 mg BID MIKE Administration Hydralazine HCl 25 mg 12/24/19 17:00 12/25/19 14:19 Apresoline PO 25 mg QID MIKE Administration Ceftriaxone Sodium 2 gm/ 100 mls @ 200 mls/hr 12/23/19 20:00 12/24/19 20:16 Sodium Chloride IVPB 100 mls Q24HR MIKE Administration Sodium Chloride 1,000 mls @ 50 mls/hr 12/23/19 20:00 12/24/19 21:26 Normal Saline 0.9% IV 1,000 mls .Q20H MIKE Administration Insulin Glargine 15 units/ 0.15 mls @ 0 mls/hr 12/25/19 09:00 12/25/19 11:38 Miscellaneous Medication SC 0.15 mls QAM MIKE Administration Insulin Glargine 15 units/ 0.15 mls @ 0 mls/hr 12/24/19 21:00 12/24/19 20:16 Miscellaneous Medication SC 0.15 mls HS MIKE Administration Cefepime HCl 1 gm/ Sodium 100 mls @ 200 mls/hr 12/25/19 08:00 12/25/19 10:45 Chloride IVPB 100 mls Q48H MIKE Administration Insulin Human Lispro 0 units 12/24/19 03:56 12/25/19 07:47 Humalog SC 3 unit .MILD SLIDING SCALE PRN Administration Mild Correctional Scale Isosorbide Mononitrate 30 mg 12/25/19 09:00 12/25/19 10:45 Imdur Er PO 30 mg DAILY MIKE Administration Levothyroxine Sodium 100 mcg 12/24/19 06:00 12/25/19 07:46 Synthroid PO 100 mcg 0600 MIKE Administration Losartan Potassium 25 mg 12/25/19 09:00 12/25/19 10:43 Cozaar PO 25 mg DAILY MIKE Administration Multivitamins 1 tab 12/25/19 09:00 12/25/19 10:44 Theragran PO 1 tab DAILY MIKE Administration Nifedipine 60 mg 12/25/19 09:00 12/25/19 10:43 Procardia Xl PO 60 mg DAILY MIKE Administration Pantoprazole Sodium 40 mg 12/25/19 09:00 12/25/19 10:43 Protonix PO 40 mg DAILY MIKE Administration Tramadol HCl 50 mg 12/24/19 21:00 12/25/19 10:42 Ultram PO 50 mg BID MIKE Administration - Exam Eye: PERRL, anicteric sclera Respiratory: no wheezes, no ronchi, normal chest expansion, no tachypnea, rales (+ rales in both bases) Gastrointestinal: soft, non-tender, non-distended, normal bowel sounds, no palpable masses Extremities: no cyanosis, 1+ LE edema Hosp A/P (1) Pneumonia Code(s): J18.9 - PNEUMONIA, UNSPECIFIED ORGANISM Status: Acute (2) ESRD (end stage renal disease) on dialysis Code(s): N18.6 - END STAGE RENAL DISEASE; Z99.2 - DEPENDENCE ON RENAL DIALYSIS Status: Acute (3) DM2 (diabetes mellitus, type 2) Status: Chronic (4) GERD (gastroesophageal reflux disease) Code(s): K21.9 - GASTRO-ESOPHAGEAL REFLUX DISEASE WITHOUT ESOPHAGITIS Status: Chronic Qualifiers: (5) HTN (hypertension) Code(s): I10 - ESSENTIAL (PRIMARY) HYPERTENSION Status: Chronic - Plan * Acute respiratory failure with hypoxemia- she continues to have some hypoxemia , and her WBC count went up slightly- will broaden her antibiotics , due to her risk factors, including ESRD * Will add incentive spirometry * COVID screen was negative, so will discontinue the isolation * ESRD on PD- stable * HTN - blood pressure is stable * DM- is stable
[2019-12-25] MEDS: cefTRIAXone\\ROCEPHIN 2 GM in Sodium Chloride 0.9% 100 ML IVPB SCH (20:32)
[2019-12-25] MEDS: HYDROcodone/Acetaminophen 5/325 mg Tablet PO PRN (20:34)
[2019-12-25] MEDS: Atorvastatin Calcium 20 MG TAB PO SCH (20:35)
[2019-12-26] MEDS: Sodium Chloride 0.9% 1,000 ML IV SCH ×2 (02:00→19:00)
[2019-12-26 05:42] LABS: #Eosinphils 0.2 thou/uL (0.0-0.7); #Lymphocytes 1.2 thou/uL (1.20-3.40); #Monocytes 1.5 thou/uL (0.11-0.59); #Neutrophils 10.9 thou/uL (1.40-6.50); %Basophils 0.3 % (0.0-1.0); %Eosinophils 1.4 % (0.0-10.0); %Lymphocytes 8.8 % (21.0-51.0); %Monocytes 10.6 % (0.0-10.0); %Neutrophils 78.8 % (42.0-75.0); Hemoglobin 9.6 g/dL (12.0-16.0); Mean Corpuscular HGB CONC 31.9 g/dL (32.0-36.0); Mean Corpuscular Hemoglobin 31.2 pg (27.0-31.0); Mean Corpuscular Volume 97.8 fL (78.0-98.0); Mean Platelet Volume 7.5 fL (7.4-10.4); Platelet Count 303 thou/uL (130-400); RBC Distribution Width 12.5 % (11.5-14.5); Red Blood Cell (RBC) Count 3.08 mill/uL (4.20-5.40); White Blood Cell (WBC) Count 13.9 thou/uL (4.8-10.8)
[2019-12-26 06:02] LABS: Anion Gap 20 mmol/L (10-20); BUN (Urea Nitrogen) 56 mg/dL (9.8-20.1); Calc. Creatinine Clearance 7 mL/min (70-130); Carbon Dioxide 21 mmol/L (23-31); Chloride 100 mmol/L (98-107); Estimated GFR-MDRD 5; Glucose 200 mg/dL (83-110); Potassium 3.8 mmol/L (3.5-5.1); Sodium 137 mmol/L (136-145)
[2019-12-26] MEDS: Levothyroxine Sodium 100 MCG TAB PO SCH (06:09)
[2019-12-26] MEDS: HumaLOG 300 UNITS/3 ML VIAL SC PRN ×2 (06:09→12:23)
[2019-12-26 08:25] LABS: Vancomycin, Random 21.6 ug/mL (See Comment)
[2019-12-26] MEDS: Isosorbide Mononitrate (ER) 30 MG TAB PO SCH (08:41)
[2019-12-26] MEDS: traMADol HCl 50 MG TAB PO SCH ×2 (08:41→21:01)
[2019-12-26] MEDS: Gabapentin 300 MG CAP PO SCH ×2 (08:41→21:03)
[2019-12-26] MEDS: Multivit, Therapeutic 1 TAB PO SCH (08:42)
[2019-12-26] MEDS: buPROPion 75 MG TAB PO SCH ×2 (08:42→21:02)
[2019-12-26] MEDS: Carvedilol 6.25 MG TAB PO SCH ×2 (08:42→21:02)
[2019-12-26] MEDS: hydrALAZINE 25 MG TAB PO SCH ×4 (08:42→21:02)
[2019-12-26] MEDS: Ferrous Sulfate 325 MG TAB PO SCH ×2 (08:42→21:03)
[2019-12-26] MEDS: cloNIDine 0.1 MG TAB PO SCH ×2 (08:43→21:03)
[2019-12-26] MEDS: NIFEdipine XL 60 MG TAB PO SCH (08:43)
[2019-12-26] MEDS: Enoxaparin Sodium 30 MG/0.3 ML SYRINGE SC SCH (08:43)
[2019-12-26] MEDS: Amlodipine 5 MG TAB PO SCH (08:43)
[2019-12-26] MEDS: Fish Oil 1,000 MG CAP PO SCH ×2 (08:43→21:02)
[2019-12-26] MEDS: Losartan 25 MG TAB PO SCH (08:43)
[2019-12-26] MEDS: Insulin Glargine 15 UNITS in Pre-Filled Syringe 1 EACH SC SCH ×2 (08:44→21:03)
--- NOTE | 2019-12-26 09:07 | PRG ---
DATE OF SERVICE: 12/26/2019 SUBJECTIVE: Ms. Canales is a 74-year-old white female with ESRD and followed up by the [facility] for her nocturnal peritoneal dialysis. She was initially admitted for pneumonia. Clinically improving with regard to the pneumonia. She is afebrile today. Last night during the peritoneal dialysis, there was a leakage found. This was subsequently addressed and clamping was done. We will resume back a regular PD regimen tonight. No complaints of shortness of breath. She does still have some pleuritic chest pain. OBJECTIVE: VITAL SIGNS: Blood pressure is 123/60, heart rate 75, respiratory rate 14, temperature 98.2, and pulse ox 91%. GENERAL: Noted to be awake, alert, and comfortable, not in overt distress. SKIN: Adequate turgor. HEENT: She has slightly pale conjunctivae. Anicteric sclerae. No neck mass. No carotid bruits. No JVD. CHEST: No deformities. LUNGS: Decreased breath sounds. HEART: Normal sinus rhythm. No murmur. No gallops. No rubs. ABDOMEN: Globular, soft, and nontender. No masses. Positive for PD catheter. EXTREMITIES: No edema. MEDICATIONS: December 26, 2019, was reviewed. LABORATORY DATA: Laboratories of December 26, 2019; white count 13.9, hemoglobin 9.6. Sodium 137, potassium 3.8, chloride 100, carbon dioxide 21, BUN 56, creatinine 8.42, glucose 200, and calcium 9. ASSESSMENT AND PLAN: 1. End-stage renal disease, stable. We will continue current CCPD regimen. We are using a 2.5% PD solution-2 L fill volume and for 8 hours. Continue current regimen. No changes to be made today. 2. Pneumonia, currently on IV antibiotics, clinically improving. 3. Agree with current management. Job ID: [id number]
--- NOTE | 2019-12-26 09:49 | PDOC.HOSPP ---
- Subjective Encounter Date: 12/26/19 Encounter Time: 09:30 Subjective: Ms Canales was seen as a follow up for pneumonia. She states she feels very tired today but feels better than she has. No overnight events other than leakage from dialysis site which was resolved. - Objective Vital Signs & Weight: Vital Signs (12 hours) Temp Pulse Resp BP Pulse Ox 12/26/19 08:34 98.2 F 75 14 123/60 91 L 12/26/19 04:00 98.9 F 67 18 117/57 L 92 L Weight Weight 169 lb Result Diagrams: 12/26/19 05:26 12/26/19 05:26 Additional Labs: Accuchecks 12/25/19 12/25/19 12/25/19 19:56 17:19 10:49 POC Glucose 203 H 196 H 149 H EKG Reviewed by me: Yes Hospitalist ROS - Medication Medications: Active Medications Generic Name Dose Route Start Last Admin Trade Name Freq PRN Reason Stop Dose Admin Acetaminophen 650 mg 12/23/19 19:58 12/24/19 15:53 Tylenol PO 650 mg Q4H PRN Administration Headache/Fever/Mild Pain (1-3) Hydrocodone Bitart/Acetaminophen 1 tab 12/25/19 18:20 12/25/19 20:34 Corona 5/325 PO 1 tab Q4H PRN Administration Moderate Pain (4-6) Amlodipine Besylate 5 mg 12/25/19 09:00 12/26/19 08:43 Norvasc PO 5 mg DAILY MIKE Administration Atorvastatin Calcium 20 mg 12/24/19 21:00 12/25/19 20:35 Lipitor PO 20 mg HS MIKE Administration Bupropion HCl 75 mg 12/24/19 21:00 12/26/19 08:42 Wellbutrin PO 75 mg BID MIKE Administration Carvedilol 12.5 mg 12/24/19 21:00 12/26/19 08:42 Coreg PO 12.5 mg BID MIKE Administration Clonidine 0.1 mg 12/24/19 21:00 12/26/19 08:43 Catapres PO 0.1 mg BID MIKE Administration Enoxaparin Sodium 30 mg 12/24/19 09:00 12/26/19 08:43 Lovenox SC 30 mg 0900 MIKE Administration Ferrous Sulfate 325 mg 12/24/19 21:00 12/26/19 08:42 Feosol PO 325 mg BID MIKE Administration Fish Oil 1,000 mg 12/24/19 21:00 12/26/19 08:43 Fish Oil PO 1,000 mg BID MIKE Administration Gabapentin 600 mg 12/24/19 21:00 12/26/19 08:41 Neurontin PO 600 mg BID MIKE Administration Hydralazine HCl 25 mg 12/24/19 17:00 12/26/19 08:42 Apresoline PO 25 mg QID MIKE Administration Ceftriaxone Sodium 2 gm/ 100 mls @ 200 mls/hr 12/23/19 20:00 12/25/19 20:32 Sodium Chloride IVPB 100 mls Q24HR MIKE Administration Sodium Chloride 1,000 mls @ 50 mls/hr 12/23/19 20:00 12/26/19 02:00 Normal Saline 0.9% IV Not Given .Q20H MIKE Insulin Glargine 15 units/ 0.15 mls @ 0 mls/hr 12/25/19 09:00 12/26/19 08:44 Miscellaneous Medication SC 0.15 mls QAM MIKE Administration Insulin Glargine 15 units/ 0.15 mls @ 0 mls/hr 12/24/19 21:00 12/25/19 20:35 Miscellaneous Medication SC 0.15 mls HS MIKE Administration Cefepime HCl 1 gm/ Sodium 100 mls @ 200 mls/hr 12/25/19 08:00 12/25/19 10:45 Chloride IVPB 100 mls Q48H MIKE Administration Insulin Human Lispro 0 units 12/24/19 03:56 12/26/19 06:09 Humalog SC 2 unit .MILD SLIDING SCALE PRN Administration Mild Correctional Scale Isosorbide Mononitrate 30 mg 12/25/19 09:00 12/26/19 08:41 Imdur Er PO 30 mg DAILY MIKE Administration Levothyroxine Sodium 100 mcg 12/24/19 06:00 12/26/19 06:09 Synthroid PO 100 mcg 0600 MIKE Administration Losartan Potassium 25 mg 12/25/19 09:00 12/26/19 08:43 Cozaar PO 25 mg DAILY MIKE Administration Multivitamins 1 tab 12/25/19 09:00 12/26/19 08:42 Theragran PO 1 tab DAILY MIKE Administration Nifedipine 60 mg 12/25/19 09:00 12/26/19 08:43 Procardia Xl PO 60 mg DAILY MIKE Administration Pantoprazole Sodium 40 mg 12/25/19 09:00 12/26/19 08:42 Protonix PO 40 mg DAILY MIKE Administration Tramadol HCl 50 mg 12/24/19 21:00 12/26/19 08:41 Ultram PO 50 mg BID MIKE Administration - Exam General Appearance: NAD ENT: normocephalic atraumatic, moist mucosa Neck: supple, symmetric, no JVD, no lymphadenopathy Heart: RRR, no murmur, no gallops, no rubs Respiratory: CTAB, no wheezes, no rales, no ronchi Gastrointestinal: soft, non-tender, non-distended, normal bowel sounds, no palpable masses Extremities: no cyanosis, 1+ LE edema Skin: normal turgor, no rashes Neurological: no focal deficits Psychiatric: normal affect, normal behavior Hosp A/P (1) Pneumonia Code(s): J18.9 - PNEUMONIA, UNSPECIFIED ORGANISM Status: Acute (2) ESRD (end stage renal disease) on dialysis Code(s): N18.6 - END STAGE RENAL DISEASE; Z99.2 - DEPENDENCE ON RENAL DIALYSIS Status: Chronic (3) DM2 (diabetes mellitus, type 2) Status: Chronic (4) GERD (gastroesophageal reflux disease) Code(s): K21.9 - GASTRO-ESOPHAGEAL REFLUX DISEASE WITHOUT ESOPHAGITIS Status: Chronic Qualifiers: (5) HTN (hypertension) Code(s): I10 - ESSENTIAL (PRIMARY) HYPERTENSION Status: Chronic - Plan Pneumonia with acute respiratory failure: still requiring O2, decrease in WBC overnight, continue IV antibiotics- pharmacy to dose due to ESRD ESRD on PD- stable, nephro following HTN- blood pressure under control DM- stable
--- NOTE | 2019-12-26 13:03 | RAD ---
EXAM: CHEST ONE VIEW HISTORY: Pneumonia COMPARISON: 12/23/2019 FINDINGS: Cardiac silhouette is magnified by projection. Pleural and parenchymal opacity is present on the left . The opacity involving the left hemithorax is increased from prior exam and is likely related to a mildly enlarged left pleural effusion. Superimposed pneumonia is also a possibility. There is now mil d patchy parenchymal density in the right midlung zone also worrisome for focal area of pneumonitis. Postoperative changes right shoulder are again seen with right glenohumeral osteoarthrop athy. No other interval change. IMPRESSION: 1. Interval development of a moderate to large left pleural effusion with parenchymal density also se en in the left midlung zone and left lung base which may be related to volume loss; however, given findings on prior exam, the parenchymal opacity could be related to pneumonia. Follow-up to complete resolution is recommended. CT thorax may be beneficial for further evaluation. 2. Patchy parenchymal opacity right midlung zone worrisome for pneumonitis.
--- NOTE | 2019-12-26 15:05 | PDOC.EVN ---
Event Note - Event Note Event Note: Ms. Canales was seen and examined and discussed with Krista MORRIS and agree with her assessment. She says she is breathing better. Her appetite is marginal. On exam she continues to have some rales at the left base. Her chest X-ray was reviewed. There may be some worsening in the left base and the development of a pleural effusion on the left, however the technique on the X- ray is quite different from the one on admission. She is clinically improving, with no fever, and WBC improved. Will continue with the current regimen , and re -assess in the AM.
[2019-12-26] MEDS: cefTRIAXone\\ROCEPHIN 2 GM in Sodium Chloride 0.9% 100 ML IVPB SCH (21:00)
[2019-12-26] MEDS: Atorvastatin Calcium 20 MG TAB PO SCH (21:03)
--- NOTE | 2019-12-27 01:15 | PDOC.EVN ---
Event Note - Event Note Event Note: RN called - Pt c/o Abd pain. KUB reviewed. Will keep NPO except meds. AM to reassess.
[2019-12-27] MEDS: HYDROcodone/Acetaminophen 5/325 mg Tablet PO PRN (01:23)
[2019-12-27] MEDS: Levothyroxine Sodium 100 MCG TAB PO SCH (05:29)
[2019-12-27] MEDS ORDERED: Iopamidol 370 76% 100 ML VIAL ONE (09:22)
[2019-12-27 09:28] LABS: Hemoglobin 10.8 g/dL (12.0-16.0); Mean Corpuscular HGB CONC 32.7 g/dL (32.0-36.0); Mean Corpuscular Hemoglobin 31.9 pg (27.0-31.0); Mean Corpuscular Volume 97.5 fL (78.0-98.0); Mean Platelet Volume 7.2 fL (7.4-10.4); Platelet Count 374 thou/uL (130-400); RBC Distribution Width 12.5 % (11.5-14.5); White Blood Cell (WBC) Count 13.3 thou/uL (4.8-10.8)
--- NOTE | 2019-12-27 09:47 | PRG ---
DATE OF SERVICE: 12/27/2019 SUBJECTIVE: Ms. Canales is a 74-year-old white female with ESRD and currently on peritoneal dialysis. She was initially admitted for pneumonia. She ruled out for COVID. She has been started on IV antibiotics. She is doing well overall. However, complains of constipation. This may be related from her hydrocodone. No complaints of chest pain or shortness of breath. Pleuritic chest pain is still persistent. OBJECTIVE: VITAL SIGNS: Blood pressure 115/56, heart rate 71, respiratory rate 14, temperature 97.3, and O2 saturations 96% on 6 L. GENERAL: The patient is noted to be awake, alert, and comfortable, not in overt distress. SKIN: Adequate turgor. HEENT: She has pinkish conjunctivae. Anicteric sclerae. NECK: No neck mass. No carotid bruits. No JVD. CHEST: No deformities. LUNGS: Clear breath sounds. HEART: Normal sinus rhythm. No murmur. No gallops. No rubs. ABDOMEN: Globular, soft, and nontender. No masses. Positive for PD catheter. EXTREMITIES: No edema. No deformities. MEDICATIONS: Medications of December 27, 2019, was reviewed. LABORATORY DATA: Laboratories of December 27, 2019, glucose 165. December 26, 2019; BUN is 56, creatinine 8.42, and potassium 3.8. White count 13.9 and hemoglobin 9.6. ASSESSMENT AND PLAN: 1. Pneumonia, currently on IV antibiotics. Continue supportive care. The patient ruled out for COVID. 2. End-stage renal disease stable. We will continue current continuous cycling peritoneal dialysis regimen. Fluid removal as tolerated by the patient. 3. Constipation. Start lactulose 30 mL b.i.d. Agree with current management. Recheck basic metabolic and CBC in a.m. Job ID: [id number]
[2019-12-27 09:49] LABS: Vancomycin, Trough 19.1 ug/mL
[2019-12-27 10:20] LABS: Band 6 % (5-11); Eosinophils 2 % (0-10); Lymphocytes 8 % (21-51); MDiff Complete? YES; Metamyelocyte 1 % (0-0); Monocytes 12 % (0-10); Myelocyte 1 % (0-0); Neutrophil 68 % (42-75); Platelet Morphology Comment Appears Adequate; Polychromasia SLIGHT = 2-3 cells (100X) (0-2/hpf)
--- NOTE | 2019-12-27 10:21 | PDOC.HOSPP ---
- Subjective Encounter Date: 12/27/19 Encounter Time: 09:15 Subjective: Mrs. Canales is seen as a follow up for pneumonia, hypoxia, and ESRD. She states she was awake most of the night due to her dialysis machine beeping but she does not appear as fatigued as yesterday. She is also complaining of constipation this morning as it has been 3 days since her last bowel movement. Mrs. Canales thinks she is breathing easier however her oxygen needs increased throughout the night and she is currently on 5L of O2. - Objective Vital Signs & Weight: Vital Signs (12 hours) Temp Pulse Resp BP Pulse Ox 12/27/19 08:44 96 12/27/19 07:56 97.3 F L 71 14 115/56 L 88 L 12/27/19 03:11 98.2 F 69 16 109/62 94 L 12/27/19 02:56 66 20 12/26/19 23:55 98.9 F 75 22 H 92 L Weight Weight 169 lb I&O: 12/26/19 12/27/19 12/28/19 06:59 06:59 06:59 Intake Total 400 Output Total 0 Balance 400 Result Diagrams: 12/27/19 09:08 12/26/19 05:26 Additional Labs: Accuchecks 12/27/19 12/27/19 12/26/19 09:57 05:34 20:55 POC Glucose 115 H 165 H 123 H 12/26/19 12/26/19 16:58 10:31 POC Glucose 85 255 H EKG Reviewed by me: Yes Hospitalist ROS - Medication Medications: Active Medications Generic Name Dose Route Start Last Admin Trade Name Freq PRN Reason Stop Dose Admin Acetaminophen 650 mg 12/23/19 19:58 12/24/19 15:53 Tylenol PO 650 mg Q4H PRN Administration Headache/Fever/Mild Pain (1-3) Hydrocodone Bitart/Acetaminophen 1 tab 12/25/19 18:20 12/27/19 01:23 Elsie 5/325 PO 1 tab Q4H PRN Administration Moderate Pain (4-6) Albuterol/Ipratropium 3 ml 12/27/19 01:26 12/27/19 02:56 Duoneb NEB 3 ml Q4H PRN Administration SOB &/or Wheezing Amlodipine Besylate 5 mg 12/25/19 09:00 12/26/19 08:43 Norvasc PO 5 mg DAILY MIKE Administration Atorvastatin Calcium 20 mg 12/24/19 21:00 12/26/19 21:03 Lipitor PO 20 mg HS MIKE Administration Bupropion HCl 75 mg 12/24/19 21:00 12/26/19 21:02 Wellbutrin PO 75 mg BID MIKE Administration Carvedilol 12.5 mg 12/24/19 21:00 12/26/19 21:02 Coreg PO 12.5 mg BID MIKE Administration Clonidine 0.1 mg 12/24/19 21:00 12/26/19 21:03 Catapres PO 0.1 mg BID MIKE Administration Enoxaparin Sodium 30 mg 12/24/19 09:00 12/26/19 08:43 Lovenox SC 30 mg 0900 MIKE Administration Ferrous Sulfate 325 mg 12/24/19 21:00 12/26/19 21:03 Feosol PO 325 mg BID MIKE Administration Fish Oil 1,000 mg 12/24/19 21:00 12/26/19 21:02 Fish Oil PO 1,000 mg BID MIKE Administration Gabapentin 600 mg 12/24/19 21:00 12/26/19 21:03 Neurontin PO 600 mg BID MIKE Administration Hydralazine HCl 25 mg 12/24/19 17:00 12/26/19 21:02 Apresoline PO 25 mg QID MIKE Administration Ceftriaxone Sodium 2 gm/ 100 mls @ 200 mls/hr 12/23/19 20:00 12/26/19 21:00 Sodium Chloride IVPB 100 mls Q24HR MIKE Administration Insulin Glargine 15 units/ 0.15 mls @ 0 mls/hr 12/25/19 09:00 12/26/19 08:44 Miscellaneous Medication SC 0.15 mls QAM MIKE Administration Insulin Glargine 15 units/ 0.15 mls @ 0 mls/hr 12/24/19 21:00 12/26/19 21:03 Miscellaneous Medication SC Not Given HS MIKE Cefepime HCl 1 gm/ Sodium 100 mls @ 200 mls/hr 12/25/19 08:00 12/25/19 10:45 Chloride IVPB 100 mls Q48H MIKE Administration Insulin Human Lispro 0 units 12/24/19 03:56 12/26/19 12:23 Humalog SC 4 unit .MILD SLIDING SCALE PRN Administration Mild Correctional Scale Isosorbide Mononitrate 30 mg 12/25/19 09:00 12/26/19 08:41 Imdur Er PO 30 mg DAILY MIKE Administration Levothyroxine Sodium 100 mcg 12/24/19 06:00 12/27/19 05:29 Synthroid PO 100 mcg 0600 MIKE Administration Losartan Potassium 25 mg 12/25/19 09:00 12/26/19 08:43 Cozaar PO 25 mg DAILY MIKE Administration Multivitamins 1 tab 12/25/19 09:00 12/26/19 08:42 Theragran PO 1 tab DAILY MIKE Administration Nifedipine 60 mg 12/25/19 09:00 12/26/19 08:43 Procardia Xl PO 60 mg DAILY MIKE Administration Pantoprazole Sodium 40 mg 12/25/19 09:00 12/26/19 08:42 Protonix PO 40 mg DAILY MIKE Administration Tramadol HCl 50 mg 12/24/19 21:00 12/26/19 21:01 Ultram PO 50 mg BID MIKE Administration - Exam General Appearance: awake alert Eye: PERRL, anicteric sclera Neck: supple, symmetric, no JVD, no lymphadenopathy Heart: RRR, no murmur, no gallops, no rubs Respiratory: normal chest expansion, rhonchi Gastrointestinal: non-tender, normal bowel sounds, distended Neurological: no focal deficits Psychiatric: normal affect, normal behavior Hosp A/P (1) Pneumonia Code(s): J18.9 - PNEUMONIA, UNSPECIFIED ORGANISM Status: Acute (2) ESRD (end stage renal disease) on dialysis Code(s): N18.6 - END STAGE RENAL DISEASE; Z99.2 - DEPENDENCE ON RENAL DIALYSIS Status: Chronic (3) DM2 (diabetes mellitus, type 2) Status: Chronic (4) GERD (gastroesophageal reflux disease) Code(s): K21.9 - GASTRO-ESOPHAGEAL REFLUX DISEASE WITHOUT ESOPHAGITIS Status: Chronic Qualifiers: (5) HTN (hypertension) Code(s): I10 - ESSENTIAL (PRIMARY) HYPERTENSION Status: Chronic (6) Constipation Code(s): K59.00 - CONSTIPATION, UNSPECIFIED Status: Acute - Plan Pneumonia with acute respiratory failure: increase in O2 need over night- pulmonary consult for pleural effusion, decrease in WBC overnight, continue IV antibiotics- pharmacy to dose due to ESRD ESRD on PD- stable, nephro following HTN- blood pressure under control DM- stable Constipation- lactulose started
[2019-12-27] MEDS: NIFEdipine XL 60 MG TAB PO SCH (10:40)
[2019-12-27] MEDS: Enoxaparin Sodium 30 MG/0.3 ML SYRINGE SC SCH (10:40)
[2019-12-27] MEDS: Multivit, Therapeutic 1 TAB PO SCH (10:40)
[2019-12-27] MEDS: buPROPion 75 MG TAB PO SCH ×2 (10:40→21:25)
[2019-12-27] MEDS: Gabapentin 300 MG CAP PO SCH ×2 (10:41→21:20)
[2019-12-27] MEDS: traMADol HCl 50 MG TAB PO SCH ×2 (10:41→21:21)
[2019-12-27] MEDS: Ferrous Sulfate 325 MG TAB PO SCH ×2 (10:41→21:21)
--- NOTE | 2019-12-27 10:41 | PDOC.EVN ---
Event Note - Event Note Event Note: Patient seen and examined and discussed with Krista MORRIS. Ms. Canales continues to complain of left sided chest pain. She has had increasing oxygen requirements. On exam she has some rales in the left mid lung field anteriorly , and possibly a friction rub. Discussed with Dr. Ta, possibilities of her increased oxygen requirements could be worsening pneumonia ( although clinically she looks better ), volume overload, or PE. Will check a CTA of the chest. Abdominal pain has resolved, and her abdominal exam is benign. Will treat her for constipation.
[2019-12-27] MEDS: Saccharomyces boulardii 250 MG CAP PO SCH (10:42)
[2019-12-27] MEDS: Cefepime 1 GM in Sodium Chloride 0.9% 100 ML IVPB SCH (10:42)
[2019-12-27] MEDS: Insulin Glargine 15 UNITS in Pre-Filled Syringe 1 EACH SC SCH ×2 (10:42→21:24)
[2019-12-27] MEDS: Fish Oil 1,000 MG CAP PO SCH ×2 (10:42→21:22)
[2019-12-27] MEDS: Losartan 25 MG TAB PO SCH (10:43)
[2019-12-27] MEDS: Amlodipine 5 MG TAB PO SCH (11:10)
[2019-12-27] MEDS: hydrALAZINE 25 MG TAB PO SCH ×4 (11:11→21:25)
[2019-12-27] MEDS: Carvedilol 6.25 MG TAB PO SCH ×2 (11:11→21:22)
[2019-12-27] MEDS: cloNIDine 0.1 MG TAB PO SCH ×2 (11:11→21:22)
--- NOTE | 2019-12-27 11:51 | RAD ---
KUB: INDICATION: History of abdominal discomfort and distention. COMPARISON: Prior exam dated 02/22/2018. FINDINGS: There is stable dialysis catheter within the left hemipelvis. There is gaseous distention of some co adis within the upper abdomen. There is a left-sided pleural effusion and left-sided basilar airspace opacity. There is vertebroplasty change at L3. IMPRESSION: 1. Nonspecific gaseous distention of portions of the colon. 2. Left lower lobe pneumonia with moderate left pleural effusion. 3. Patchy opacities within the right lung base may reflect right lower lobe pneumonia. 4. Dialysis catheter. POS: BH
--- NOTE | 2019-12-27 12:18 | CT ---
CT ANGIOGRAM THORAX WITH IV CONTRAST AND 3-D RECONSTRUCTIONS CLINICAL INDICATION: Left-sided chest pain with increase in oxygen requirement. COMPARISON: None FINDINGS: Pulmonary arteries: No filling defects are seen in the central or segmental pulmonary arteries. There is limited opacification of the subsegmental pulmonary arteries and pulmonary embolus at the subsegmental level would be difficult to entirely exclude. Aorta: Vascular calcifications are seen in the aortic arch. The thoracic aorta is otherwise normal in caliber without evidence of an aortic dissection. Lungs: Small right pleural effusion with consolidation right lung base. Consolidation may represent e ither atelectasis or pneumonia. A moderate size left pleural effusion is seen, and pleural fluid on the left may be partially loculated. Much larger area of consolidation is seen on the left with a low er density area at the left lung base seen within the area of consolidation measuring 4 cm which likely represents an area of necrosis as opposed to a mass. Findings on the left are worrisome for pn eumonia/necrotizing pneumonia. A few peripherally located groundglass densities are seen in the right upper lobe likely due to infectious or inflammatory process. Mediastinum: While no enlarged lymph nodes are seen by CT size criteria, there is an increased number of mediastinal lymph nodes with increase in number of infraclavicular lymph nodes. A hiatal hernia is noted with the fundus of the stomach above the level of the hemidiaphragms. There is thickening in the region of the GE junction which could be related to redundancy of the stomach and distal esophagus secondary to the hiatal hernia. Contrast and gas is seen within the esophagus which is mild ly dilated and may be related to gastroesophageal reflux. Thyroid gland: Left lobe of thyroid gland is not seen. The visualized right thyroid lobe has a normal CT appearance. Osseous structures: Postoperative changes right shoulder are present with bilateral glenohumeral oste oarthropathy seen. Degenerative changes are seen in the spine. Chest wall: Mild subcutaneous edema is seen laterally involving the lower chest and visualized upper abdomen. Upper abdomen: Small amount of ascites is present adjacent to the liver and spleen. There are hypodense lesions seen involving each kidney which are difficult to characterize on this ex am but does appear to be present on a CT lumbar spine in 2016. A 10 mm calculus midportion left kidney is again seen with adjacent scarring as well as a stable approximately 3 mm calculus inferior pole right kidney again noted. A duodenal diverticulum is present involving the third portion of the duodenum. This diverticulum was seen on study in 2016. Vascular calcifications are seen in the abdominal aorta. IMPRESSION: 1. Evidence of necrotizing pneumonia left lung base. Follow-up evaluation is recommended to ensure re solution of the consolidation as well as the lower density area worrisome for necrosis. A mass in this region is a possibility but thought less likely. 2. Small right and moderate left pleural effusions. Pleural fluid on the left may be partially locula shawn. Consolidation is present at the right lung base which may represent either pneumonia or passive atelectasis. 3. Groundglass densities seen in the peripheral aspect right upper lobe which may represent infectiou s or inflammatory process. 4. Mediastinal lymphadenopathy primarily based on increase in number of lymph nodes. This is likely r eactive. 5. Hiatal hernia with fundus of the stomach above the hemidiaphragms. While there is suggested thicke ryan involving the ovalle of the fundus of the stomach and GE junction, this may be attributable to redundancy related to the hiatal hernia. However, this would be better evaluated with endoscopy. 6. Dilated esophagus with contrast and gas which may related to gastroesophageal reflux. 7. No CT evidence of a pulmonary embolus involving the central or segmental pulmonary arteries. There is suboptimal evaluation of the subsegmental pulmonary arteries, and pulmonary embolus at this level could not be excluded. 8. Additional findings as described above including small amount of ascites.
[2019-12-27] MEDS: Isosorbide Mononitrate (ER) 30 MG TAB PO SCH (13:06)
--- NOTE | 2019-12-27 14:34 | RAD ---
EXAM: CHEST TWO VIEWS: 12/27/19 HISTORY: Shortness of breath. FINDINGS: Minimally cardiomegaly. Moderate left pleural effusion with some parenchymal changes in the left mid and lower lung zone, evidence for left lower lobe pneumonia and/or atelectasis. Patchy parenchymal ch anges in the right lower mid lung zone, evidence for mild pneumonitis or subsegmental atelectasis wit h small pleural effusion. IMPRESSION: Moderate left pleural effusion and left mid and lower lung zone parenchymal change, evidence for pneu monia and/or atelectasis. Patchy parenchymal changes in the right mid and lower lung zone, evidence f or minimal pneumonitis and/or subsegmental atelectasis with probable small right pleural effusion. POS: C
--- NOTE | 2019-12-27 14:48 | PQF ---
CLINICAL DOCUMENTATION IMPROVEMENT CLARIFICATION FORM: ICD-10 Updated PLEASE DO AN ADDENDUM TO THE PROGRESS NOTE WITH ANY DOCUMENTATION UPDATES OR ADDITIONS AND CARRY THROUGH TO DC SUMMARY. THANK YOU. DATE: 12/27/2019 ATTN: Dr. Santillan Please exercise your independent, professional judgment in responding to the clarification form. Clinical indicators are provided on the bottom of this form for your review Please check appropriate box(es): [ ] Sepsis present on admission [ ] Sepsis NOT present on admission [ ] Unable to determine Due to: [ X] Severe sepsis present on admission [ ] Severe Sepsis NOT present on admission [ ] Unable to determine with acute organ dysfunction of: ____renal [ ] Localized infection without sepsis [ ] Other diagnosis [ ] Unable to determine For continuity of documentation, please document condition throughout progress notes and discharge summary. Thank You. CLINICAL INDICATORS - SIGNS / SYMPTOMS / LABS / RESULTS AND LOCATION IN MR ER Record 12/22: 74 yo presents to the ER w/ confusion, SOB and Cough. DX: AMS hypoxia, pneumonia H&P 12/22: Lab: WBC 15.7 Plan: pneumonia - pt with wbc elevation and consolidation on cxr with hypoxia 86% RA. 12/23 ([place]) Temp 101.3 Pneumonia Acute respiratory failure with hypoxemia RISKS: H&P 12/22: PMH CHF, HTN. Diabetes. 12/23 ([place]) Pneumonia. Acute respiratory failure with hypoxemia. ESRD on PD TREATMENT: MAR: Order 12/22: Rocephin 2 gm IV q 24 hr MAR: Order 12/24: Cefepime 1 gm IV q 48 hr MAR: Order 12/24: Vancomycin 1 gm will call john Thank you, Chantelle (This form is maintained as a part of the permanent medical record) 2014 [employer] All Rights [employer] Chantelle Camacho RN, BSN [email or web address] [email or web address]
--- NOTE | 2019-12-27 15:15 | PQF ---
XCLINICAL DOCUMENTATION IMPROVEMENT CLARIFICATION FORM: ICD-10 Updated PLEASE DO AN ADDENDUM TO THE PROGRESS NOTE WITH ANY DOCUMENTATION UPDATES OR ADDITIONS AND CARRY THROUGH TO DC SUMMARY. THANK YOU. DATE: 12/27/2019 ATTN: Dr. Santillan Please exercise your independent, professional judgment in responding to the clarification form. Clinical indicators are provided on the bottom of this form for your review Please check appropriate box(s): [ ] Empirically treating Gram Negative Pneumonia [ ] Empirically treating Anaerobic Pneumonia [ ] Aspiration Pneumonia [ ] Pneumonia secondary to (specify organism / underlying disease) [ X ] Simple Pneumonia [ ] Pneumonia of unknown etiology [ ] Other diagnosis [ ] Unable to determine In addition, please specify: Present on Admission (POA): [ X ] Yes [ ] No [ ] Unable to determine For continuity of documentation, please document condition throughout progress notes and discharge summary. Thank You. CLINICAL INDICATORS - SIGNS / SYMPTOMS / LABS / RESULTS AND LOCATION IN MR H&P 12/22: Lab: WBC 15.7 Plan: pneumonia - pt with wbc elevation and consolidation on cxr with hypoxia 86% RA. altered mental state - likely secondary to pneumonia 12/23 ([place]) Temp 101.3 Pneumonia Acute respiratory failure with hypoxemia RISKS: H&P 12/22: PMH CHF, HTN. Diabetes. 12/23 ([place]) Pneumonia. Acute respiratory failure with hypoxemia. ESRD on PD TREATMENT: OCT: Order 12/22: Rocephin 2 gm IV q 24 hr OCT: Order 12/24: Cefepime 1 gm IV q 48 hr OCT: Order 12/24: Vancomycin 1 gm willcall john Order 12/25: Resp: O2 to keep sats 90% continuous Order 12/26: CTA angio Chest Thank you, Chantelle (This form is maintained as a part of the permanent medical record) 2014 [employer]. All Rights Reserved Chantelle Camacho RN, BSN [email or web address] [employer] [facility]
--- NOTE | 2019-12-27 16:40 | CON ---
DATE OF CONSULTATION: 12/27/2019 HISTORY OF PRESENT ILLNESS: Ms. Canales is a 74-year-old female who presented with complaints of weakness. She was noted to have an altered mental status. She subsequently has been admitted with a diagnosis of pneumonia. She developed progressive hypoxemia, so we were consulted after a chest x-ray was abnormal. PAST MEDICAL HISTORY: Remarkable for: 1. End-stage renal disease, on peritoneal dialysis. 2. History of cardiomyopathy. 3. History of hypertension. 4. Lipid disorder. 5. History of diabetes. 6. Hypothyroidism. 7. History of cholecystectomy. 8. History of appendectomy. 9. History of hysterectomy. 10. Status post tonsillectomy. FAMILY HISTORY: Positive for hypertension. SOCIAL HISTORY: She is a nonsmoker and nondrinker. REVIEW OF SYSTEMS: Otherwise negative except for pleuritic chest discomfort on the left. PHYSICAL EXAMINATION: VITAL SIGNS: She is afebrile, heart rate 76, respiratory rate 15, oximetry is in the low 90s on 6 L cannula, and blood pressure 136/60. HEAD AND NECK: Unremarkable. LUNGS: Remarkable for distant breath sounds in the left. HEART: Regular rhythm. S1 and S2 are normal. ABDOMEN: Soft and nontender. EXTREMITIES: Without clubbing, cyanosis, or edema. IMAGING STUDIES: CT pulmonary angiogram was reviewed. She appears to have a developing lung abscess in her left base plus loculated fluid in her left base. ASSESSMENT AND PLAN: The best approach for this my opinion would be thoracoscopy. I informed her of this and also reviewed the CT with cardiothoracic surgeons. She became extremely tearful when we started talking about surgery. The surgeons have been gracious enough to see her. Hopefully, we can get her through this procedure and get her mending, so she can get home. She is very upset about being away from her . I do think it would be reasonable to discontinue vancomycin at some point once we have a Gram stain on the pleural fluid. TIME SPENT: This is a 50-minute consult, 50% of the time was spent on coordinating care. Job ID: [id number] MTDD
--- NOTE | 2019-12-27 20:34 | CON ---
DATE OF CONSULTATION: 12/27/2019 HISTORY OF PRESENT ILLNESS: Ms. Canales is a 74-year-old woman, who presented with weakness, hypoxia, and subsequently diagnosed with left lung pneumonia. She had increasing difficulty with left-sided chest pain and shortness of breath, which led to a CT angiogram. This has shown a loculated large left-sided pleural effusion. She has been treated with antibiotics since the time of admission. Her admission white blood cell count was 15.7, it is currently 13.3. Blood cultures have remained negative. She does peritoneal dialysis at home with a baseline creatinine of 8.4, potassium is 3.8. She is also diabetic and has had blood sugars ranging from 85 up to 255 since admission. Currently, she is very tearful. She has her on the phone and he listened in on our conversation. PAST MEDICAL HISTORY: 1. Diabetes mellitus. 2. End-stage renal disease, on peritoneal dialysis. 3. Hypertension. 4. Congestive heart failure. 5. Hypercholesterolemia. 6. Hypothyroidism. PAST SURGICAL HISTORY: 1. Appendectomy. 2. Cholecystectomy. 3. Hysterectomy. 4. Tonsillectomy. SOCIAL HISTORY: She does not use tobacco. She is and has two sons. PHYSICAL EXAMINATION: GENERAL: This is an elderly obese woman, who is currently tearful and not able to really answer questions well. VITAL SIGNS: Her temperature is 97.6, pulse is 76 and regular, blood pressure is 136/60. Her height is 5 feet 4 inches, weight is 169 pounds. HEENT: Sclerae nonicteric. Pupils are equal and round bilaterally. NECK: Supple without adenopathy. CHEST: Has diminished breath sounds throughout. HEART: Rhythm is regular. ABDOMEN: Soft. EXTREMITIES: There is no edema. ASSESSMENT AND PLAN: This is an unfortunate 74-year-old woman with a left empyema. Cultures have not been taken of the pleural fluid-we will culture this in the OR tomorrow. I have discussed thoracoscopy with decortication with her and she is agreeable. We will make plans for tomorrow. Job ID: [id number]
[2019-12-27] MEDS: cefTRIAXone\\ROCEPHIN 2 GM in Sodium Chloride 0.9% 100 ML IVPB SCH (21:19)
[2019-12-27] MEDS: Atorvastatin Calcium 20 MG TAB PO SCH (21:20)
[2019-12-27] MEDS ORDERED: Ondansetron PF 4 MG/2 ML Vial IVP PRN (23:17)
[2019-12-27] MEDS ORDERED: Polyethylene Glycol 3350 17 GM Packet PO PRN (23:17)
[2019-12-28 05:05] LABS: #Eosinphils 0.1 thou/uL (0.0-0.7); #Lymphocytes 0.8 thou/uL (1.20-3.40); #Monocytes 1.2 thou/uL (0.11-0.59); #Neutrophils 7.7 thou/uL (1.40-6.50); %Basophils 0.2 % (0.0-1.0); %Eosinophils 1.2 % (0.0-10.0); %Lymphocytes 7.7 % (21.0-51.0); %Monocytes 11.8 % (0.0-10.0); %Neutrophils 79.1 % (42.0-75.0); Hemoglobin 10.1 g/dL (12.0-16.0); Mean Corpuscular HGB CONC 31.8 g/dL (32.0-36.0); Mean Corpuscular Hemoglobin 30.8 pg (27.0-31.0); Mean Corpuscular Volume 96.7 fL (78.0-98.0); Platelet Count 319 thou/uL (130-400); RBC Distribution Width 12.5 % (11.5-14.5); Red Blood Cell (RBC) Count 3.28 mill/uL (4.20-5.40); White Blood Cell (WBC) Count 9.7 thou/uL (4.8-10.8)
[2019-12-28 05:27] LABS: Anion Gap 19 mmol/L (10-20); BUN (Urea Nitrogen) 52 mg/dL (9.8-20.1); Calc. Creatinine Clearance 7 mL/min (70-130); Calcium 9.3 mg/dL (7.8-10.44); Carbon Dioxide 24 mmol/L (23-31); Chloride 102 mmol/L (98-107); Estimated GFR-MDRD 4; Glucose 154 mg/dL (83-110); Potassium 3.5 mmol/L (3.5-5.1); Sodium 141 mmol/L (136-145)
[2019-12-28] MEDS: Levothyroxine Sodium 100 MCG TAB PO SCH (06:02)
[2019-12-28] MEDS: Carvedilol 6.25 MG TAB PO SCH ×2 (08:08→21:27)
[2019-12-28] MEDS ORDERED: Bupivacaine PF 0.5% 30 ML VIAL ONE (09:15)
[2019-12-28] MEDS ORDERED: EPINEPHrine 1 MG/ML AMP ONE (09:15)
[2019-12-28] MEDS ORDERED: Fentanyl 100 MCG/2 ML VIAL ONE ×2 (09:16→11:44)
[2019-12-28] MEDS ORDERED: Atracurium 100 MG/10 ML VIAL ONE (09:25)
[2019-12-28] MEDS ORDERED: Lidocaine 1% PF 5 ML VIAL ONE (10:52)
[2019-12-28] MEDS ORDERED: Dexamethasone 20 MG/5 ML VIAL ONE (10:52)
[2019-12-28] MEDS ORDERED: PROPOFOL 200 MG/20 ML VIAL ONE (10:52)
[2019-12-28] MEDS ORDERED: Ketorolac Tromethamine 30 MG/ML VIAL ONE (10:52)
[2019-12-28] MEDS ORDERED: Ondansetron PF 4 MG/2 ML Vial ONE (10:52)
[2019-12-28] MEDS ORDERED: Glycopyrrolate 0.2 MG/ML 5 ML SYRINGE ONE (10:52)
--- NOTE | 2019-12-28 11:39 | OP ---
DATE OF PROCEDURE: 12/28/2019 PREOPERATIVE DIAGNOSIS: Left empyema. POSTOPERATIVE DIAGNOSIS: Left empyema. PROCEDURE PERFORMED: Left thoracoscopy with total pulmonary decortication. ANESTHESIA: General endotracheal. ANESTHESIOLOGIST: Naya Barrera MD ESTIMATED BLOOD LOSS: Less than 100. DRAINS: 24-Upper Sor[place] James drains x2. SPECIMENS: Fluid sent for culture and cytology. DESCRIPTION OF PROCEDURE: After consent was obtained, the patient was brought to the operating room, placed in supine position on the operating table. Appropriate central line and monitors were placed, and general endotracheal anesthesia was induced. The patient was placed in the right lateral decubitus position. Joints were appropriately padded. SCDs were used. Left chest wall was prepped and draped in usual sterile fashion. Two port incisions were made in the chest wall, one posterior to the scapular tip and one at the anterior axillary line. Through these 2 incisions, the scope was inserted, and suction was used to evacuate fluid. The loculations were broken down bluntly with ring forceps and suction. Chest was copiously irrigated and fluid evacuated. Once the fluid had been completely evacuated, the 24-Upper Sor[place] James drains were placed through the anterior port site. These were secured with silk suture. The lung was then reinflated under direct vision and filled the chest cavity nicely. The port was then removed and the port site closed in layers. The port sites were infiltrated with 0.5% Marcaine with epinephrine. The patient tolerated the procedure well and was transferred then to the recovery room and back to her room on the floor in good condition. Job ID: [id number]
[2019-12-28] MEDS ORDERED: Bisacodyl 10 MG SUPP PR PRN (12:37)
[2019-12-28] MEDS ORDERED: Fentanyl 100 MCG/2 ML VIAL SLOW IVP PRN (12:37)
[2019-12-28] MEDS ORDERED: traMADol HCl 50 MG TAB PO PRN ×2 (12:37)
[2019-12-28] MEDS ORDERED: Milk Of Magnesia 30 ML UDCUP PO PRN (12:37)
[2019-12-28] MEDS ORDERED: Acetaminophen 650 MG Suppository PR PRN (12:37)
[2019-12-28] MEDS ORDERED: Mineral Oil ENEMA PR PRN (12:37)
--- NOTE | 2019-12-28 13:47 | RAD ---
SINGLE VIEW OF THE CHEST: 12/28/19 COMPARISON: 12/26/19 HISTORY: Chest tube placement for pleural effusion. FINDINGS: Single view of the chest shows an enlarged but stable cardiomediastinal silhouette. There is at least one left chest tube. There is decreased size of the left pleural effusion. There are likely a still remaining small left pleural effusion. Increased opacity in both lung bases may represent atelectasis or infiltrates. No pneumothorax is seen. IMPRESSION: 1. Bibasilar infiltrates. 2. Status post chest tube placement with decreased size of left pleural effusion. POS: EAA
[2019-12-28] MEDS: buPROPion 75 MG TAB PO SCH ×2 (14:20→21:27)
[2019-12-28] MEDS: cloNIDine 0.1 MG TAB PO SCH ×2 (14:20→21:26)
[2019-12-28] MEDS: Fish Oil 1,000 MG CAP PO SCH ×2 (14:20→20:41)
[2019-12-28] MEDS: Amlodipine 5 MG TAB PO SCH (14:20)
[2019-12-28] MEDS: hydrALAZINE 25 MG TAB PO SCH ×4 (14:20→21:26)
[2019-12-28] MEDS: Gabapentin 300 MG CAP PO SCH ×2 (14:20→20:41)
[2019-12-28] MEDS: Ferrous Sulfate 325 MG TAB PO SCH ×2 (14:20→20:41)
[2019-12-28] MEDS: NIFEdipine XL 60 MG TAB PO SCH (14:21)
[2019-12-28] MEDS: Isosorbide Mononitrate (ER) 30 MG TAB PO SCH (14:21)
[2019-12-28] MEDS: Insulin Glargine 15 UNITS in Pre-Filled Syringe 1 EACH SC SCH ×2 (14:21→20:40)
[2019-12-28] MEDS: Multivit, Therapeutic 1 TAB PO SCH (14:21)
[2019-12-28] MEDS: Losartan 25 MG TAB PO SCH (14:21)
[2019-12-28] MEDS: traMADol HCl 50 MG TAB PO SCH ×2 (14:22→20:51)
[2019-12-28] MEDS: Saccharomyces boulardii 250 MG CAP PO SCH (14:22)
--- NOTE | 2019-12-28 15:50 | PDOC.HOSPP ---
- Subjective Encounter Date: 12/28/19 Encounter Time: 15:48 Subjective: was seen today in follow-up of Pneumonia with empyema. She is s/p decortication. She notes some soreness in her back. No new complaints. - Objective Vital Signs & Weight: Vital Signs (12 hours) Temp Pulse Resp BP BP Pulse Ox 12/28/19 15:22 98 12/28/19 14:25 78 132/64 12/28/19 14:21 75 12/28/19 14:20 75 120/70 12/28/19 14:12 75 13 100 12/28/19 14:09 68 16 98 12/28/19 13:00 97.8 F 91 L 12/28/19 12:58 76 16 93 L 12/28/19 11:30 78 11 L 91 L 12/28/19 08:08 120/70 12/28/19 08:03 99 F 79 120/58 L Weight Weight 169 lb Most Recent Monitor Data Heart Rate from ECG 70 NIBP 120/57 NIBP BP-Mean 78 Respiration from ECG 11 SpO2 100 I&O: 12/27/19 12/28/19 12/29/19 06:59 06:59 06:59 Intake Total 400 300 Output Total 0 200 Balance 400 300 -200 Result Diagrams: 12/28/19 04:57 12/28/19 04:57 Additional Labs: Accuchecks 12/28/19 12/28/19 12/27/19 13:13 07:45 20:21 POC Glucose 103 124 H 178 H 12/27/19 17:33 POC Glucose 101 Hospitalist ROS - Medication Medications: Active Medications Generic Name Dose Route Start Last Admin Trade Name Freq PRN Reason Stop Dose Admin Hydrocodone Bitart/Acetaminophen 1 tab 12/25/19 18:20 12/27/19 01:23 [place] 5/325 PO 1 tab Q4H PRN Administration Moderate Pain (4-6) Albuterol/Ipratropium 3 ml 12/27/19 18:30 12/28/19 14:09 Duoneb NEB 3 ml [id number] MIKE Administration Amlodipine Besylate 5 mg 12/25/19 09:00 12/28/19 14:20 Norvasc PO Not Given DAILY MIKE Atorvastatin Calcium 20 mg 12/24/19 21:00 12/27/19 21:20 Lipitor PO 20 mg HS MIKE Administration Bupropion HCl 75 mg 12/24/19 21:00 12/28/19 14:20 Wellbutrin PO Not Given BID MIKE Carvedilol 12.5 mg 12/24/19 21:00 12/28/19 08:08 Coreg PO 12.5 mg BID MIKE Administration Clonidine 0.1 mg 12/24/19 21:00 12/28/19 14:20 Catapres PO Not Given BID MIKE Ferrous Sulfate 325 mg 12/24/19 21:00 12/28/19 14:20 Feosol PO Not Given BID MIKE Fish Oil 1,000 mg 12/24/19 21:00 12/28/19 14:20 Fish Oil PO Not Given BID [facility] Gabapentin 600 mg 12/24/19 21:00 12/28/19 14:20 Neurontin PO Not Given BID [facility] Hydralazine HCl 25 mg 12/24/19 17:00 12/28/19 14:25 Apresoline PO 25 mg QID MIKE Administration Ceftriaxone Sodium 2 gm/ 100 mls @ 200 mls/hr 12/23/19 20:00 12/27/19 21:19 Sodium Chloride IVPB 100 mls Q24HR MIKE Administration Insulin Glargine 15 units/ 0.15 mls @ 0 mls/hr 12/25/19 09:00 12/28/19 14:21 Miscellaneous Medication SC Not Given QAM MIKE Insulin Glargine 15 units/ 0.15 mls @ 0 mls/hr 12/24/19 21:00 12/27/19 21:24 Miscellaneous Medication SC Not Given HS [facility] Cefepime HCl 1 gm/ Sodium 100 mls @ 200 mls/hr 12/25/19 08:00 12/27/19 10:42 Chloride IVPB 100 mls Q48H MIKE Administration Isosorbide Mononitrate 30 mg 12/25/19 09:00 12/28/19 14:21 Imdur Er PO Not Given DAILY [facility] Lactulose 30 gm 12/27/19 21:00 12/28/19 14:21 Lactulose PO Not Given BID [facility] Levothyroxine Sodium 100 mcg 12/24/19 06:00 12/28/19 06:02 Synthroid PO 100 mcg 0600 MIKE Administration Losartan Potassium 25 mg 12/25/19 09:00 12/28/19 14:21 Cozaar PO Not Given DAILY [facility] Multivitamins 1 tab 12/25/19 09:00 12/28/19 14:21 Theragran PO Not Given DAILY MIKE Nifedipine 60 mg 12/25/19 09:00 12/28/19 14:21 Procardia Xl PO Not Given DAILY MIKE Pantoprazole Sodium 40 mg 12/25/19 09:00 12/28/19 14:21 Protonix PO Not Given DAILY MIKE Saccharomyces Boulardii 250 mg 12/27/19 09:00 12/28/19 14:22 Florastor PO Not Given DAILY MIKE Tramadol HCl 50 mg 12/24/19 21:00 12/28/19 14:22 Ultram PO Not Given BID MIKE - Exam Eye: PERRL Heart: RRR, no murmur, no gallops, no rubs, normal peripheral pulses Respiratory: CTAB (+ coarse breath sounds, and rales at both bases) Gastrointestinal: soft, non-tender, non-distended, normal bowel sounds, no palpable masses Extremities: no cyanosis, no clubbing, no edema Hosp A/P (1) Pneumonia Code(s): J18.9 - PNEUMONIA, UNSPECIFIED ORGANISM Status: Acute (2) ESRD (end stage renal disease) on dialysis Code(s): N18.6 - END STAGE RENAL DISEASE; Z99.2 - DEPENDENCE ON RENAL DIALYSIS Status: Chronic (3) DM2 (diabetes mellitus, type 2) Status: Chronic (4) GERD (gastroesophageal reflux disease) Code(s): K21.9 - GASTRO-ESOPHAGEAL REFLUX DISEASE WITHOUT ESOPHAGITIS Status: Chronic Qualifiers: (5) HTN (hypertension) Code(s): I10 - ESSENTIAL (PRIMARY) HYPERTENSION Status: Chronic - Plan * Acute respiratory failure with hypoxemia, sepsis, and empyema. She is post decortication * Continue Cefepime and Vancomycin , and await culture results from the decortication * ESRD on PD- stable * HTN - blood pressure is stable * DM- is stable
[2019-12-28] MEDS: Acetaminophen 325 MG TAB PO PRN (16:24)
[2019-12-28] MEDS: cefTRIAXone\\ROCEPHIN 2 GM in Sodium Chloride 0.9% 100 ML IVPB SCH (20:39)
[2019-12-28] MEDS: Atorvastatin Calcium 20 MG TAB PO SCH (20:41)
[2019-12-28] MEDS: Insulin Regular 300 UNITS/3 ML VIAL SC PRN (20:44)
[2019-12-29] MEDS: Levothyroxine Sodium 100 MCG TAB PO SCH (05:46)
--- NOTE | 2019-12-29 07:49 | RAD ---
EXAM: CHEST ONE VIEW HISTORY: Post thoracotomy. COMPARISON: 12/28/2019 FINDINGS: Left-sided thoracostomy tube remains unchanged in position. No pneumothorax is appreciated. Interstit ial and patchy parenchymal densities are again seen at each lung base and perihilar regions greater on the left which could be related to volume loss and areas of atelectasis. No definitive pleural eff usion is identified. Chest is otherwise stable IMPRESSION: 1. Left-sided thoracostomy tube remaining in place without pneumothorax or definite pleural effusion is identified. 2. Scattered interstitial and patchy parenchymal opacities at each lung base and perihilar regions wh ich may be attributable to volume loss. Continued follow-up is recommended.
[2019-12-29 07:57] LABS: Hemoglobin 10.1 g/dL (12.0-16.0); Mean Corpuscular HGB CONC 31.6 g/dL (32.0-36.0); Mean Corpuscular Hemoglobin 30.9 pg (27.0-31.0); Mean Corpuscular Volume 97.6 fL (78.0-98.0); Mean Platelet Volume 7.1 fL (7.4-10.4); Platelet Count 418 thou/uL (130-400); RBC Distribution Width 12.7 % (11.5-14.5); Red Blood Cell (RBC) Count 3.27 mill/uL (4.20-5.40); White Blood Cell (WBC) Count 19.6 thou/uL (4.8-10.8)
[2019-12-29] MEDS: Cefepime 1 GM in Sodium Chloride 0.9% 100 ML IVPB SCH (08:05)
[2019-12-29 08:06] LABS: Anion Gap 22 mmol/L (10-20); BUN (Urea Nitrogen) 51 mg/dL (9.8-20.1); Calc. Creatinine Clearance 6 mL/min (70-130); Carbon Dioxide 22 mmol/L (23-31); Chloride 104 mmol/L (98-107); Estimated GFR-MDRD 4; Glucose 122 mg/dL (83-110); Potassium 3.7 mmol/L (3.5-5.1); Sodium 144 mmol/L (136-145)
--- NOTE | 2019-12-29 08:50 | PDOC.HOSPP ---
- Subjective Encounter Date: 12/29/19 Encounter Time: 08:45 Subjective: Ms. Canales was seen today in follow-up of Respiratory failure due to Pneumonia and empyema. She is sitting in a chair. She says she has " a little pain". She has not eaten much, and she has a full tray of food in front of her. - Objective Vital Signs & Weight: Vital Signs (12 hours) Temp Pulse Resp BP Pulse Ox 12/29/19 08:00 98.7 F 12/29/19 07:32 87 14 91 L 12/29/19 04:00 98.2 F 12/29/19 02:39 94 L 12/29/19 02:38 94 L 12/29/19 00:00 98 F 98 12/28/19 23:50 95 12/28/19 21:27 156/93 H 12/28/19 21:26 83 156/93 H Weight Weight 164 lb 7.437 oz Most Recent Monitor Data Heart Rate from ECG 89 NIBP 143/78 NIBP BP-Mean 99 Respiration from ECG 17 SpO2 91 I&O: 12/28/19 12/29/19 12/30/19 06:59 06:59 06:59 Intake Total 300 300 Output Total 320 40 Balance 300 -20 -40 Result Diagrams: 12/29/19 07:41 12/29/19 07:41 Additional Labs: Accuchecks 12/29/19 12/28/19 12/28/19 05:49 20:43 16:16 POC Glucose 146 H 219 H 122 H 12/28/19 13:13 POC Glucose 103 Hospitalist ROS - Medication Medications: Active Medications Generic Name Dose Route Start Last Admin Trade Name Freq PRN Reason Stop Dose Admin Acetaminophen 650 mg 12/28/19 12:37 12/28/19 16:24 Tylenol PO 650 mg Q4H PRN Administration Fever > 38.5C, LOVE or mild pain Hydrocodone Bitart/Acetaminophen 1 tab 12/25/19 18:20 12/27/19 01:23 [place] 5/325 PO 1 tab Q4H PRN Administration Moderate Pain (4-6) Albuterol/Ipratropium 3 ml 12/27/19 18:30 12/29/19 07:32 Duoneb NEB 3 ml [id number] MIKE Administration Amlodipine Besylate 5 mg 12/25/19 09:00 12/28/19 14:20 Norvasc PO Not Given DAILY MIKE Atorvastatin Calcium 20 mg 12/24/19 21:00 12/28/19 20:41 Lipitor PO 20 mg HS MIKE Administration Bupropion HCl 75 mg 12/24/19 21:00 12/28/19 21:27 Wellbutrin PO 75 mg BID MIKE Administration Carvedilol 12.5 mg 12/24/19 21:00 12/28/19 21:27 Coreg PO 12.5 mg BID MIKE Administration Clonidine 0.1 mg 12/24/19 21:00 12/28/19 21:26 Catapres PO 0.1 mg BID MIKE Administration Ferrous Sulfate 325 mg 12/24/19 21:00 12/28/19 20:41 Feosol PO 325 mg BID MIKE Administration Fish Oil 1,000 mg 12/24/19 21:00 12/28/19 20:41 Fish Oil PO 1,000 mg BID MIKE Administration Gabapentin 600 mg 12/24/19 21:00 12/28/19 20:41 Neurontin PO 600 mg BID MIKE Administration Hydralazine HCl 25 mg 12/24/19 17:00 12/28/19 21:26 Apresoline PO 25 mg QID MIKE Administration Ceftriaxone Sodium 2 gm/ 100 mls @ 200 mls/hr 12/23/19 20:00 12/28/19 20:39 Sodium Chloride IVPB 100 mls Q24HR MIKE Administration Insulin Glargine 15 units/ 0.15 mls @ 0 mls/hr 12/25/19 09:00 12/28/19 14:21 Miscellaneous Medication SC Not Given QAM MIKE Insulin Glargine 15 units/ 0.15 mls @ 0 mls/hr 12/24/19 21:00 12/28/19 20:40 Miscellaneous Medication SC 0.15 mls HS MIKE Administration Cefepime HCl 1 gm/ Sodium 100 mls @ 200 mls/hr 12/25/19 08:00 12/29/19 08:05 Chloride IVPB 100 mls Q48H MIKE Administration Insulin Human Regular 0 units 12/28/19 12:37 12/28/19 20:44 Humulin R SC 3 unit .MILD SLIDING SCALE PRN Administration Mild Correctional Scale Isosorbide Mononitrate 30 mg 12/25/19 09:00 12/28/19 14:21 Imdur Er PO Not Given DAILY [facility] Lactulose 30 gm 12/27/19 21:00 12/28/19 20:40 Lactulose PO 30 gm BID MIKE Administration Levothyroxine Sodium 100 mcg 12/24/19 06:00 12/29/19 05:46 Synthroid PO 100 mcg 0600 MIKE Administration Losartan Potassium 25 mg 12/25/19 09:00 12/28/19 14:21 Cozaar PO Not Given DAILY [facility] Multivitamins 1 tab 12/25/19 09:00 12/28/19 14:21 Theragran PO Not Given DAILY MIKE Nifedipine 60 mg 12/25/19 09:00 12/28/19 14:21 Procardia Xl PO Not Given DAILY MIKE Pantoprazole Sodium 40 mg 12/25/19 09:00 12/28/19 14:21 Protonix PO Not Given DAILY MIKE Saccharomyces Boulardii 250 mg 12/27/19 09:00 12/28/19 14:22 Florastor PO Not Given DAILY [facility] Sodium Chloride 10 ml 12/28/19 21:00 12/28/19 20:53 Flush - Normal Saline IVF 10 ml Q12HR MIKE Administration Tramadol HCl 50 mg 12/24/19 21:00 12/28/19 20:51 Ultram PO 50 mg BID MIKE Administration - Exam Eye: PERRL Heart: RRR, no murmur, no gallops, no rubs, normal peripheral pulses Respiratory: rales (rales at the left base), rhonchi Gastrointestinal: soft, non-tender, non-distended, normal bowel sounds, no palpable masses, no hepatomegaly Extremities: 1+ LE edema Hosp A/P (1) Pneumonia Code(s): J18.9 - PNEUMONIA, UNSPECIFIED ORGANISM Status: Acute (2) ESRD (end stage renal disease) on dialysis Code(s): N18.6 - END STAGE RENAL DISEASE; Z99.2 - DEPENDENCE ON RENAL DIALYSIS Status: Chronic (3) DM2 (diabetes mellitus, type 2) Status: Chronic (4) GERD (gastroesophageal reflux disease) Code(s): K21.9 - GASTRO-ESOPHAGEAL REFLUX DISEASE WITHOUT ESOPHAGITIS Status: Chronic Qualifiers: (5) HTN (hypertension) Code(s): I10 - ESSENTIAL (PRIMARY) HYPERTENSION Status: Chronic - Plan * Acute respiratory failure with hypoxemia, sepsis, and empyema. She is post decortication * Continue Cefepime and Vancomycin , and await culture results from the decortication * ESRD on PD- she had the removal of 1 liter yesterday * Encourage oral intake- will add Nutrition protocol * Need to mobilize * HTN - blood pressure is stable * DM- is stable
--- NOTE | 2019-12-29 09:10 | PRG ---
DATE OF SERVICE: 12/29/2019 Ms. Canales is a 74-year-old white female with ESRD and followed up by the [facility]al Service for her CCPD regimen. She was admitted initially for pneumonia. She was ruled out for COVID. However, due to the persistence of her pleuritic chest pain, she had chest x-ray/CAT scan which showed some necrotizing pneumonia. She was diagnosed to have left empyema. She underwent the left thoracoscopy with total pulmonary decortication. She tolerated said procedure. She is tolerating her peritoneal dialysis. The patient has no new complaints except for postop pain. OBJECTIVE: VITAL SIGNS: Blood pressure 143/78, heart rate 89, respiratory rate 17, O2 saturation 91%. GENERAL: Noted to be awake, sitting comfortable. Not in overt distress. SKIN: Adequate turgor. HEENT: Slightly pale conjunctivae. Anicteric sclerae. NECK: No neck mass. No carotid bruits. No JVD. CHEST: No deformities. Positive for left chest tube. LUNGS: Decreased breath sounds. HEART: Normal sinus rhythm. No murmur. No gallops. No rubs. ABDOMEN: Globular, soft, nontender. No masses. Positive for PD catheter. EXTREMITIES: No edema. MEDICATIONS: Medications of December 29, 2019, reviewed. LABORATORY DATA: Laboratories of December 29, 2019, white count 19.6, hemoglobin 10.1 sodium 144, potassium 3.7, chloride 104, carbon dioxide 22, BUN 51, creatinine 9.38, glucose 122, calcium 9. ASSESSMENT AND PLAN: 1. Pneumonia/status post left thoracoscopy with pulmonary decortication. Doing well. Surgery is following. On empiric antibiotics. 2. End stage renal disease, stable. We will continue current continuous cyclic peritoneal dialysis regimen. No changes to be made with current peritoneal dialysis. Currently undergoing using a 2.5% peritoneal dialysis solution. 3. Agree with current management. Job ID: [id number]
[2019-12-29 09:33] LABS: #Monocytes 1.4 thou/uL (0.11-0.59); #Neutrophils 17.1 thou/uL (1.40-6.50); %Eosinophils 0.2 % (0.0-10.0); %Lymphocytes 5.3 % (21.0-51.0); %Monocytes 7.1 % (0.0-10.0); %Neutrophils 87.3 % (42.0-75.0); Band 9 % (5-11); Lymphocytes 7 % (21-51); MDiff Complete? YES; Monocytes 8 % (0-10); Neutrophil 76 % (42-75); RBC Morphology Normal
[2019-12-29] MEDS: Insulin Glargine 15 UNITS in Pre-Filled Syringe 1 EACH SC SCH ×2 (10:12→20:45)
[2019-12-29] MEDS: Enoxaparin Sodium 30 MG/0.3 ML SYRINGE SC SCH (10:12)
[2019-12-29] MEDS: Ferrous Sulfate 325 MG TAB PO SCH ×2 (10:13→20:45)
[2019-12-29] MEDS: hydrALAZINE 25 MG TAB PO SCH ×4 (10:13→20:44)
[2019-12-29] MEDS: Carvedilol 6.25 MG TAB PO SCH ×2 (10:13→20:44)
[2019-12-29] MEDS: Losartan 25 MG TAB PO SCH (10:13)
[2019-12-29] MEDS: Saccharomyces boulardii 250 MG CAP PO SCH (10:13)
[2019-12-29] MEDS: Multivit, Therapeutic 1 TAB PO SCH (10:13)
[2019-12-29] MEDS: NIFEdipine XL 60 MG TAB PO SCH (10:14)
[2019-12-29] MEDS: Citalopram 20 MG TAB PO SCH (10:14)
[2019-12-29] MEDS: cloNIDine 0.1 MG TAB PO SCH ×2 (10:14→20:43)
[2019-12-29] MEDS: buPROPion 75 MG TAB PO SCH ×2 (10:15→20:45)
[2019-12-29] MEDS: traMADol HCl 50 MG TAB PO SCH ×2 (10:15→20:45)
[2019-12-29] MEDS: Fish Oil 1,000 MG CAP PO SCH ×2 (10:15→20:44)
[2019-12-29] MEDS: Amlodipine 5 MG TAB PO SCH (10:15)
[2019-12-29] MEDS: Isosorbide Mononitrate (ER) 30 MG TAB PO SCH (10:16)
[2019-12-29] MEDS: Gabapentin 300 MG CAP PO SCH ×2 (10:16→20:45)
[2019-12-29] MEDS: Acetaminophen 325 MG TAB PO PRN ×2 (13:19→23:55)
[2019-12-29] MEDS: Insulin Regular 300 UNITS/3 ML VIAL SC PRN (17:23)
--- NOTE | 2019-12-29 18:44 | PRG ---
DATE OF SERVICE: 12/29/2019 SUBJECTIVE: Ms. Canales had an uneventful night. Preliminary cultures of pleural fluid are negative. A few white cells were seen. Intake and outputs remarkable for a chest tube drainage of 320 mL. OBJECTIVE: GENERAL: She is in no distress. She is not tearful today. LUNGS: She has equal breath sounds. HEART: Regular rhythm. ABDOMEN: Soft. IMPRESSION: 1. Status post decortication for pneumonia and a lung abscess. 2. End-stage renal disease, on peritoneal dialysis. 3. Obesity. 4. History of cardiomyopathy. 5. Hypertension. 6. Lipid disorder. 7. Diabetes. PLAN: We will continue with supportive care. She would be stable to move out of the critical care unit in the morning. Job ID: [id number]
[2019-12-29] MEDS: Atorvastatin Calcium 20 MG TAB PO SCH (20:45)
[2019-12-30 04:23] LABS: Band 8 % (5-11); Hemoglobin 9.5 g/dL (12.0-16.0); Hypochromia SLIGHT = 6-15 cells (100X) (0-5/hpf); Lymphocytes 8 % (21-51); MDiff Complete? YES; Mean Corpuscular HGB CONC 31.9 g/dL (32.0-36.0); Mean Corpuscular Hemoglobin 31.1 pg (27.0-31.0); Mean Corpuscular Volume 97.4 fL (78.0-98.0); Mean Platelet Volume 7.2 fL (7.4-10.4); Metamyelocyte 1 % (0-0); Monocytes 5 % (0-10); Neutrophil 78 % (42-75); Platelet Count 395 thou/uL (130-400); Platelet Morphology Comment Appears Adequate; RBC Distribution Width 13.1 % (11.5-14.5); Red Blood Cell (RBC) Count 3.04 mill/uL (4.20-5.40); White Blood Cell (WBC) Count 21.5 thou/uL (4.8-10.8)
[2019-12-30] MEDS: Levothyroxine Sodium 100 MCG TAB PO SCH (06:19)
--- NOTE | 2019-12-30 07:33 | PDOC.HOSPP ---
- Subjective Encounter Date: 12/30/19 Encounter Time: 07:33 Subjective: Ms. Canales was seen today in follow-up of Pneumonia with empyema. She notes some soreness in her chest, she continues to have a poor appetite,otherwise ok. - Objective Vital Signs & Weight: Vital Signs (12 hours) Temp Pulse Resp BP Pulse Ox 12/30/19 07:19 85 14 93 L 12/30/19 04:00 98.7 F 12/30/19 03:07 94 L 12/30/19 00:00 99.3 F 12/29/19 22:27 94 L 12/29/19 20:44 80 161/70 H 12/29/19 20:43 161/70 H 12/29/19 20:00 98 F 96 12/29/19 19:44 94 L 12/29/19 19:42 77 18 94 L Weight Admit Weight 164 lb Weight 174 lb 6.17 oz Most Recent Monitor Data Heart Rate from ECG 85 NIBP 140/71 NIBP BP-Mean 94 Respiration from ECG 15 SpO2 93 I&O: 12/29/19 12/30/19 12/31/19 06:59 06:59 06:59 Intake Total 300 1390 Output Total 320 170 Balance -20 1220 Result Diagrams: 12/30/19 03:19 12/29/19 07:41 Additional Labs: Accuchecks 12/30/19 12/30/19 12/29/19 06:23 02:09 20:27 POC Glucose 150 H 169 H 136 H 12/29/19 12/29/19 16:26 11:45 POC Glucose 259 H 124 H Hospitalist ROS - Medication Medications: Active Medications Generic Name Dose Route Start Last Admin Trade Name Freq PRN Reason Stop Dose Admin Acetaminophen 650 mg 12/28/19 12:37 12/29/19 23:55 Tylenol PO 650 mg Q4H PRN Administration Fever > 38.5C, OLVE or mild pain Hydrocodone Bitart/Acetaminophen 1 tab 12/25/19 18:20 12/27/19 01:23 [place] 5/325 PO 1 tab Q4H PRN Administration Moderate Pain (4-6) Albuterol/Ipratropium 3 ml 12/27/19 18:30 12/30/19 07:19 Duoneb NEB 3 ml [id number] MIKE Administration Amlodipine Besylate 5 mg 12/25/19 09:00 12/29/19 10:15 Norvasc PO 5 mg DAILY MIKE Administration Atorvastatin Calcium 20 mg 12/24/19 21:00 12/29/19 20:45 Lipitor PO 20 mg HS MIKE Administration Bupropion HCl 75 mg 12/24/19 21:00 12/29/19 20:45 Wellbutrin PO 75 mg BID MIKE Administration Carvedilol 12.5 mg 12/24/19 21:00 12/29/19 20:44 Coreg PO 12.5 mg BID MIKE Administration Citalopram Hydrobromide 40 mg 12/29/19 09:00 12/29/19 10:14 Celexa PO 40 mg DAILY MIKE Administration Clonidine 0.1 mg 12/24/19 21:00 12/29/19 20:43 Catapres PO 0.1 mg BID MIKE Administration Enoxaparin Sodium 30 mg 12/29/19 09:00 12/29/19 10:12 Lovenox SC 30 mg 0900 MIKE Administration Ferrous Sulfate 325 mg 12/24/19 21:00 12/29/19 20:45 Feosol PO 325 mg BID MIKE Administration Fish Oil 1,000 mg 12/24/19 21:00 12/29/19 20:44 Fish Oil PO 1,000 mg BID MIKE Administration Gabapentin 600 mg 12/24/19 21:00 12/29/19 20:45 Neurontin PO 600 mg BID MIKE Administration Hydralazine HCl 25 mg 12/24/19 17:00 12/29/19 20:44 Apresoline PO 25 mg QID MIKE Administration Insulin Glargine 15 units/ 0.15 mls @ 0 mls/hr 12/25/19 09:00 12/29/19 10:12 Miscellaneous Medication SC 0.15 mls QAM MIKE Administration Insulin Glargine 15 units/ 0.15 mls @ 0 mls/hr 12/24/19 21:00 12/29/19 20:45 Miscellaneous Medication SC 0.15 mls HS MIKE Administration Insulin Human Regular 0 units 12/28/19 12:37 12/29/19 17:23 Humulin R SC 4 unit .MILD SLIDING SCALE PRN Administration Mild Correctional Scale Isosorbide Mononitrate 30 mg 12/25/19 09:00 12/29/19 10:16 Imdur Er PO 30 mg DAILY MIKE Administration Lactulose 30 gm 12/27/19 21:00 12/29/19 21:31 Lactulose PO Not Given [facility] Levothyroxine Sodium 100 mcg 12/24/19 06:00 12/30/19 06:19 Synthroid PO 100 mcg 0600 MIKE Administration Losartan Potassium 25 mg 12/25/19 09:00 12/29/19 10:13 Cozaar PO 25 mg DAILY MIKE Administration Multivitamins 1 tab 12/25/19 09:00 12/29/19 10:13 Theragran PO 1 tab DAILY MIKE Administration Nifedipine 60 mg 12/25/19 09:00 12/29/19 10:14 Procardia Xl PO 60 mg DAILY MIKE Administration Pantoprazole Sodium 40 mg 12/25/19 09:00 12/29/19 10:14 Protonix PO 40 mg DAILY MIKE Administration Saccharomyces Boulardii 250 mg 12/27/19 09:00 12/29/19 10:13 Florastor PO 250 mg DAILY MIKE Administration Sodium Chloride 10 ml 12/28/19 21:00 12/29/19 20:46 Flush - Normal Saline IVF 10 ml Q12HR MIKE Administration Tramadol HCl 50 mg 12/24/19 21:00 12/29/19 20:45 Ultram PO 50 mg BID MIKE Administration - Exam Eye: PERRL, anicteric sclera Heart: RRR, no murmur, no gallops, no rubs, normal peripheral pulses Respiratory: CTAB, rhonchi (+ rhonchi at the base, and decreased breath sounds, but decreasing rales) Gastrointestinal: soft, non-tender, non-distended, normal bowel sounds, no palpable masses, no hepatomegaly Extremities: no cyanosis, no clubbing, 1+ LE edema Hosp A/P (1) Pneumonia Code(s): J18.9 - PNEUMONIA, UNSPECIFIED ORGANISM Status: Acute (2) ESRD (end stage renal disease) on dialysis Code(s): N18.6 - END STAGE RENAL DISEASE; Z99.2 - DEPENDENCE ON RENAL DIALYSIS Status: Chronic (3) DM2 (diabetes mellitus, type 2) Status: Chronic (4) GERD (gastroesophageal reflux disease) Code(s): K21.9 - GASTRO-ESOPHAGEAL REFLUX DISEASE WITHOUT ESOPHAGITIS Status: Chronic Qualifiers: (5) HTN (hypertension) Code(s): I10 - ESSENTIAL (PRIMARY) HYPERTENSION Status: Chronic - Plan * Acute respiratory failure with hypoxemia, sepsis, due to left sided pneumonia with empyema. She is post decortication * Continue Cefepime and Vancomycin - cultures to date are negative * ESRD on PD- stable * Continue to encourage oral intake * HTN - blood pressure is stable * DM- is stable * Stable for transfer out of the ICU
[2019-12-30] MEDS: Gabapentin 300 MG CAP PO SCH ×2 (08:46→20:31)
[2019-12-30] MEDS: hydrALAZINE 25 MG TAB PO SCH ×4 (08:47→20:32)
[2019-12-30] MEDS: Saccharomyces boulardii 250 MG CAP PO SCH (08:47)
[2019-12-30] MEDS: Losartan 25 MG TAB PO SCH (08:47)
[2019-12-30] MEDS: Enoxaparin Sodium 30 MG/0.3 ML SYRINGE SC SCH (08:47)
[2019-12-30] MEDS: Insulin Glargine 15 UNITS in Pre-Filled Syringe 1 EACH SC SCH ×2 (08:47→20:42)
[2019-12-30] MEDS: Ferrous Sulfate 325 MG TAB PO SCH ×2 (08:48→20:31)
[2019-12-30] MEDS: Multivit, Therapeutic 1 TAB PO SCH (08:48)
[2019-12-30] MEDS: NIFEdipine XL 60 MG TAB PO SCH (08:48)
[2019-12-30] MEDS: cloNIDine 0.1 MG TAB PO SCH ×2 (08:48→20:31)
[2019-12-30] MEDS: Fish Oil 1,000 MG CAP PO SCH ×2 (08:48→20:31)
[2019-12-30] MEDS: Carvedilol 6.25 MG TAB PO SCH ×2 (08:48→20:32)
[2019-12-30] MEDS: Citalopram 20 MG TAB PO SCH (08:49)
[2019-12-30] MEDS: traMADol HCl 50 MG TAB PO SCH ×2 (08:49→20:30)
[2019-12-30] MEDS: Amlodipine 5 MG TAB PO SCH (08:50)
[2019-12-30] MEDS: Isosorbide Mononitrate (ER) 30 MG TAB PO SCH (08:50)
[2019-12-30] MEDS: buPROPion 75 MG TAB PO SCH ×2 (08:50→20:31)
--- NOTE | 2019-12-30 08:50 | PRG ---
DATE OF SERVICE: 12/30/2019 SUBJECTIVE: A 74-year-old female status post decortication. X-rays of yesterday still shows some scarring in the left chest with two chest tubes in place. Cultures all negative. She is having pain and short of breath. OBJECTIVE: VITAL SIGNS: Pulse 75, saturations are 95% on high-flow, and blood pressure 140/71. CHEST: Bilateral rhonchi and crackles. CARDIAC: Normal S1 and S2. No gallops. ABDOMEN: No masses. LABORATORY DATA: White count of 21,000. Lytes are normal. Creatinine is 9 and BUN 51. ASSESSMENT: Decortication, renal failure, severe deconditioning, and respiratory failure. PLAN: Continue observation in the ICU. I will probably start to deescalate antibiotics. Cultures are negative. Would discontinue vancomycin. Continue Maxipime and continue neb treatments. PT and diet. We will follow. Job ID: [id number]
--- NOTE | 2019-12-30 09:23 | PRG ---
DATE OF SERVICE: 12/30/2019 SUBJECTIVE: Ms. Canales is a 74-year-old white female with ESRD, was initially admitted for pneumonia. She ruled out for COVID. She developed necrotizing pneumonia for that reason. She has undergone left decortication with chest tube placement. This morning, she is feeling better. She is sitting, has no new complaints. She tolerated the peritoneal dialysis last night. OBJECTIVE: VITAL SIGNS: Blood pressure is 122/78, heart rate 85, respiratory rate is 14, and O2 saturation 93%. The patient is on nasal CPAP. GENERAL: Awake, sitting, comfortable, not in overt distress. SKIN: Adequate turgor. HEENT: Slightly pale conjunctivae. Anicteric sclerae. NECK: No neck mass. No carotid bruits. No JVD. CHEST: No deformities. Positive for left chest tube. HEART: Normal sinus rhythm. No murmur. No gallops. No rubs. ABDOMEN: Globular, soft, and nontender. EXTREMITIES: Trace edema. MEDICATIONS: Medications of December 30, 2019, were reviewed. LABORATORY DATA: Laboratories of December 30, 2019; white count 21.5 and hemoglobin 9.5. On December 30, 2019, glucose 150. ASSESSMENT AND PLAN: 1. End-stage renal disease, stable. We will continue current CCPD regimen. We are using 2.5% PD solution and she is tolerating ultrafiltration. 2. Pneumonia-complicated by necrotizing pneumonia/status post decortication and chest tube placement, stable. On empiric IV antibiotics. 3. Agree with current management. Recheck CBC and basic metabolic panel in a.m. Job ID: [id number]
[2019-12-30] MEDS: Insulin Regular 300 UNITS/3 ML VIAL SC PRN (11:23)
[2019-12-30] MEDS: HYDROcodone/Acetaminophen 5/325 mg Tablet PO PRN (12:30)
[2019-12-30] MEDS ORDERED: Cefepime 0.5 GM, Admixture Fee 1 EACH in Sodium Chloride 0.9% 100 ML IVPB SCH (16:00)
[2019-12-30 20:15] LABS: Vancomycin, Random 14.4 ug/mL (See Comment)
[2019-12-30] MEDS: Atorvastatin Calcium 20 MG TAB PO SCH (20:31)
[2019-12-31 04:01] LABS: #Eosinphils 0.4 thou/uL (0.0-0.7); #Monocytes 1.2 thou/uL (0.11-0.59); #Neutrophils 18.2 thou/uL (1.40-6.50); %Eosinophils 1.7 % (0.0-10.0); %Lymphocytes 4.9 % (21.0-51.0); %Monocytes 5.6 % (0.0-10.0); %Neutrophils 87.7 % (42.0-75.0); Hemoglobin 9.8 g/dL (12.0-16.0); Mean Corpuscular HGB CONC 32.2 g/dL (32.0-36.0); Mean Corpuscular Hemoglobin 31.2 pg (27.0-31.0); Mean Corpuscular Volume 97.1 fL (78.0-98.0); Mean Platelet Volume 6.7 fL (7.4-10.4); Platelet Count 360 thou/uL (130-400); RBC Distribution Width 13.2 % (11.5-14.5); Red Blood Cell (RBC) Count 3.14 mill/uL (4.20-5.40); White Blood Cell (WBC) Count 20.7 thou/uL (4.8-10.8)
[2019-12-31 04:21] LABS: Anion Gap 19 mmol/L (10-20); BUN (Urea Nitrogen) 58 mg/dL (9.8-20.1); Calc. Creatinine Clearance 6 mL/min (70-130); Carbon Dioxide 25 mmol/L (23-31); Chloride 101 mmol/L (98-107); Estimated GFR-MDRD 4; Glucose 146 mg/dL (83-110); Potassium 3.1 mmol/L (3.5-5.1); Sodium 142 mmol/L (136-145)
[2019-12-31] MEDS: Levothyroxine Sodium 100 MCG TAB PO SCH (06:42)
[2019-12-31] MEDS: cloNIDine 0.1 MG TAB PO SCH ×2 (09:33→20:40)
[2019-12-31] MEDS: Fish Oil 1,000 MG CAP PO SCH ×2 (09:33→20:41)
[2019-12-31] MEDS: Gabapentin 300 MG CAP PO SCH ×2 (09:33→20:41)
[2019-12-31] MEDS: hydrALAZINE 25 MG TAB PO SCH ×4 (09:34→20:40)
[2019-12-31] MEDS: buPROPion 75 MG TAB PO SCH ×2 (09:34→20:41)
[2019-12-31] MEDS: NIFEdipine XL 60 MG TAB PO SCH (09:38)
[2019-12-31] MEDS: Citalopram 20 MG TAB PO SCH (09:39)
[2019-12-31] MEDS: Carvedilol 6.25 MG TAB PO SCH ×2 (09:39→20:41)
[2019-12-31] MEDS: Ferrous Sulfate 325 MG TAB PO SCH ×2 (09:40→20:41)
[2019-12-31] MEDS: Isosorbide Mononitrate (ER) 30 MG TAB PO SCH (09:40)
[2019-12-31] MEDS: Amlodipine 5 MG TAB PO SCH (09:40)
[2019-12-31] MEDS: Multivit, Therapeutic 1 TAB PO SCH (09:40)
[2019-12-31] MEDS: Losartan 25 MG TAB PO SCH (09:40)
[2019-12-31] MEDS: Saccharomyces boulardii 250 MG CAP PO SCH (09:40)
[2019-12-31] MEDS: traMADol HCl 50 MG TAB PO SCH ×2 (09:41→20:40)
[2019-12-31] MEDS: Enoxaparin Sodium 30 MG/0.3 ML SYRINGE SC SCH (09:42)
[2019-12-31] MEDS ORDERED: Potassium Chloride 20 MEQ TAB PO SCH (09:45)
--- NOTE | 2019-12-31 10:17 | PRG ---
DATE OF SERVICE: 12/31/2019 SUBJECTIVE: Ms. Canales is a 74-year-old white female with ESRD, was admitted for pneumonia. This was complicated by development of necrotizing pneumonic infiltrate. She underwent decortication and chest tube placement. Chest tube was removed yesterday. She is occasionally confused. She is tolerating the current peritoneal dialysis regimen. No complaints of chest pain or shortness of breath. She does have some loose stools. OBJECTIVE: VITAL SIGNS: Blood pressure 151/64, heart rate 87, respiratory rate 28, O2 saturation 93%. GENERAL: Awake, sitting, comfortable, not in overt distress. SKIN: Adequate turgor. HEENT: Slightly pale conjunctivae. Anicteric sclerae. NECK: No neck mass. No carotid bruits. No JVD. CHEST: No deformities. LUNGS: Decreased breath sounds, left. Right, clear breath sounds. HEART: Normal sinus rhythm. No murmur. No gallops. No rubs. ABDOMEN: Globular, soft, nontender. No masses. EXTREMITIES: No edema. No deformities. MEDICATIONS: December 31, 2019, was reviewed. LABORATORY DATA: December 31, 2019, white count 20.7, hemoglobin 9.8. Sodium 142, potassium 3.1, chloride 101, carbon dioxide 25, BUN 58, creatinine 9.9, glucose 146, calcium 9. ASSESSMENT AND PLAN: 1. End-stage renal disease, stable, tolerating current peritoneal dialysis regimen. Continue 2.5% PD solution. Fluid removal as tolerated. 2. Mild hypokalemia, p.r.n. potassium supplementation. 3. Pneumonia, complicated by empyema/necrotizing pneumonia-status post decortication, doing well. Chest tube has been pulled out. Currently, on IV antibiotics. 4. Recheck CBC and basic metabolic profile in a.m. Job ID: [id number]
--- NOTE | 2019-12-31 11:42 | EKG ---
Test Reason : Blood Pressure : / mmHG Vent. Rate : 072 BPM Atrial Rate : 072 BPM P-R Int : 000 ms QRS Dur : 078 ms QT Int : 452 ms P-R-T Axes : 000 -05 007 degrees QTc Int : 494 ms Accelerated Junctional rhythm with occasional Premature ventricular complexes Nonspecific ST and T wave abnormality Prolonged QT Abnormal ECG Confirmed by JEROD POWER ([id number]), general expeditor FABIOLA STEINER ([id number]) on 12/31/2019 11:42:16 AM Referred By: Confirmed By:JEROD Acharya
[2019-12-31] MEDS: Insulin Glargine 15 UNITS in Pre-Filled Syringe 1 EACH SC SCH ×2 (12:11→21:00)
[2019-12-31] MEDS ORDERED: Cefepime 1 GM in Sodium Chloride 0.9% 100 ML IVPB SCH (16:00)
--- NOTE | 2019-12-31 16:08 | PDOC.HOSPP ---
- Subjective Encounter Date: 12/31/19 Encounter Time: 10:20 Subjective: less confused, covid neg., wbcs still around 20K. Cr remained around 9; ON PD - Objective Vital Signs & Weight: Vital Signs (12 hours) Temp Pulse Pulse Pulse Resp BP BP 12/31/19 15:24 97.4 F L 12/31/19 14:36 82 17 12/31/19 11:30 96.4 F L 12/31/19 10:38 83 16 12/31/19 09:34 88 137/80 12/31/19 09:33 147/78 H 12/31/19 09:04 88 85 147/78 H 12/31/19 08:00 12/31/19 07:09 99.2 F 12/31/19 06:32 87 15 BP Pulse Ox Pulse Ox Pulse Ox 12/31/19 15:24 12/31/19 14:36 92 L 12/31/19 11:30 12/31/19 10:38 97 12/31/19 09:34 12/31/19 09:33 12/31/19 09:04 149/58 H 93 L 93 L 12/31/19 08:00 98 12/31/19 07:09 12/31/19 06:32 98 Weight Admit Weight 164 lb Weight 162 lb 14.746 oz Most Recent Monitor Data Heart Rate from ECG 84 NIBP 104/63 NIBP BP-Mean 76 Respiration from ECG 17 SpO2 94 I&O: 12/30/19 12/31/19 01/01/20 06:59 06:59 06:59 Intake Total 1390 750 Output Total 170 312 Balance 1220 438 Result Diagrams: 12/31/19 03:48 12/31/19 03:48 Additional Labs: Accuchecks 12/31/19 12/31/19 12/30/19 12:27 06:48 20:42 POC Glucose 213 H 160 H 86 12/30/19 17:20 POC Glucose 98 Hospitalist ROS - Medication Medications: Active Medications Generic Name Dose Route Start Last Admin Trade Name Freq PRN Reason Stop Dose Admin Acetaminophen 650 mg 12/28/19 12:37 12/29/19 23:55 Tylenol PO 650 mg Q4H PRN Administration Fever > 38.5C, LOVE or mild pain Hydrocodone Bitart/Acetaminophen 1 tab 12/25/19 18:20 12/30/19 12:30 [place] 5/325 PO 1 tab Q4H PRN Administration Moderate Pain (4-6) Albuterol/Ipratropium 3 ml 12/27/19 18:30 12/31/19 14:36 Duoneb NEB 3 ml [id number] MIKE Administration Amlodipine Besylate 5 mg 12/25/19 09:00 12/31/19 09:40 Norvasc PO 5 mg DAILY MIKE Administration Atorvastatin Calcium 20 mg 12/24/19 21:00 12/30/19 20:31 Lipitor PO 20 mg HS MIKE Administration Bupropion HCl 75 mg 12/24/19 21:00 12/31/19 09:34 Wellbutrin PO 75 mg BID MIKE Administration Carvedilol 12.5 mg 12/24/19 21:00 12/31/19 09:39 Coreg PO 12.5 mg BID MIKE Administration Citalopram Hydrobromide 40 mg 12/29/19 09:00 12/31/19 09:39 Celexa PO 40 mg DAILY MIKE Administration Clonidine 0.1 mg 12/24/19 21:00 12/31/19 09:33 Catapres PO 0.1 mg BID MIKE Administration Enoxaparin Sodium 30 mg 12/29/19 09:00 12/31/19 09:42 Lovenox SC 30 mg 899 MIKE Administration Ferrous Sulfate 325 mg 12/24/19 21:00 12/31/19 09:40 Feosol PO 325 mg BID MIKE Administration Fish Oil 1,000 mg 12/24/19 21:00 12/31/19 09:33 Fish Oil PO 1,000 mg BID MIKE Administration Gabapentin 600 mg 12/24/19 21:00 12/31/19 09:33 Neurontin PO 600 mg BID MIKE Administration Hydralazine HCl 25 mg 12/24/19 17:00 12/31/19 09:34 Apresoline PO 25 mg QID MIKE Administration Insulin Glargine 15 units/ 0.15 mls @ 0 mls/hr 12/25/19 09:00 12/31/19 12:11 Miscellaneous Medication SC Not Given QAM MIKE Insulin Glargine 15 units/ 0.15 mls @ 0 mls/hr 12/24/19 21:00 12/30/19 20:42 Miscellaneous Medication SC Not Given HS MIKE Insulin Human Regular 0 units 12/28/19 12:37 12/30/19 11:23 Humulin R SC 3 unit .MILD SLIDING SCALE PRN Administration Mild Correctional Scale Isosorbide Mononitrate 30 mg 12/25/19 09:00 12/31/19 09:40 Imdur Er PO 30 mg DAILY MIKE Administration Lactulose 30 gm 12/27/19 21:00 12/31/19 12:12 Lactulose PO Not Given BID MIKE Levothyroxine Sodium 100 mcg 12/24/19 06:00 12/31/19 06:42 Synthroid PO 100 mcg 0600 MIKE Administration Losartan Potassium 25 mg 12/25/19 09:00 12/31/19 09:40 Cozaar PO 25 mg DAILY MIKE Administration Multivitamins 1 tab 12/25/19 09:00 12/31/19 09:40 Theragran PO 1 tab DAILY MIKE Administration Nifedipine 60 mg 12/25/19 09:00 12/31/19 09:38 Procardia Xl PO 60 mg DAILY MIKE Administration Pantoprazole Sodium 40 mg 12/25/19 09:00 12/31/19 09:40 Protonix PO 40 mg DAILY MIKE Administration Saccharomyces Boulardii 250 mg 12/27/19 09:00 12/31/19 09:40 Florastor PO 250 mg DAILY MIKE Administration Sodium Chloride 10 ml 12/28/19 21:00 12/31/19 09:42 Flush - Normal Saline IVF 10 ml Q12HR MIKE Administration Tramadol HCl 50 mg 12/24/19 21:00 12/31/19 09:41 Ultram PO 50 mg BID MIKE Administration - Exam General Appearance: awake alert, ill appearing Eye: PERRL, anicteric sclera ENT: normocephalic atraumatic Neck: supple Heart: RRR Respiratory: CTAB Gastrointestinal: soft, normal bowel sounds Neurological: no focal deficits Hosp A/P - Plan (1) Pneumonia Code(s): J18.9 - PNEUMONIA, UNSPECIFIED ORGANISM Status: Acute (2) (3) DM2 (diabetes mellitus, type 2) Status: Chronic (4) GERD (gastroesophageal reflux disease) Code(s): K21.9 - GASTRO-ESOPHAGEAL REFLUX DISEASE WITHOUT ESOPHAGITIS Status: Chronic Qualifiers: (5) HTN (hypertension) Code(s): I10 - ESSENTIAL (PRIMARY) HYPERTENSION Status: Chronic * Acute respiratory failure with hypoxemia, sepsis, due to left sided pneumonia with empyema. She is post decortication * Continue Cefepime and Vancomycin - cultures to date are negative * ESRD on PD- stable * Continue to encourage oral intake * HTN - blood pressure is stable * DM- is stable * Stable for transfer out of the ICU * ESRD (end stage renal disease) on dialysis -peritoneal dialysis -Cr keep trending up - she is getting PD?
--- NOTE | 2019-12-31 17:23 | PRG ---
DATE OF SERVICE: 12/31/2019 SUBJECTIVE: Ms. Canales seems to be doing about the same today. She is having left-sided chest discomfort, but denies cough, sputum, fevers, or chills. She tolerated dialysis today. PHYSICAL EXAMINATION: VITAL SIGNS: Blood pressure 104/63, heart rate is 82, saturation 94% on 4 L oxygen. She is afebrile. GENERAL: She is sleepy, but arousable. She complains of left-sided chest discomfort. She is not in any degree of respiratory distress. LUNGS: Show rhonchi, left greater than right, but clearly bilaterally. HEART: Regular rate and rhythm. She has a systolic murmur. ABDOMEN: Soft. EXTREMITIES: She has 1+ edema. CHEST: The chest tube site in the left mid axillary line has sutures, but does not appear to be grossly draining or purulent. LABORATORY DATA: White count today 20,700, unchanged from yesterday, hemoglobin is 9.8, platelet count 360,000. No bands are reported on today's count. Sodium 142, potassium 3.1, chloride 101, CO2 is 25, BUN 50, creatinine 9.9 (before dialysis), glucose ranging from 98 to 213. IMPRESSION: 1. Status post left empyema with decortication. 2. End-stage renal disease, on maintenance hemodialysis. PLAN: I agree that she appears medically stable and could be transferred out of the ICU at any point. She almost certainly needs to be involved in aggressive rehabilitation program. Selection of antibiotics regarding her pneumonia is deferred to primary care team. Job ID: [id number]
[2019-12-31] MEDS: Atorvastatin Calcium 20 MG TAB PO SCH (20:41)
[2020-01-01 03:18] LABS: #Eosinphils 0.4 thou/uL (0.0-0.7); #Lymphocytes 1.4 thou/uL (1.20-3.40); #Monocytes 1.2 thou/uL (0.11-0.59); #Neutrophils 15.8 thou/uL (1.40-6.50); %Eosinophils 1.9 % (0.0-10.0); %Lymphocytes 7.3 % (21.0-51.0); %Monocytes 6.3 % (0.0-10.0); %Neutrophils 84.5 % (42.0-75.0); Hemoglobin 9.8 g/dL (12.0-16.0); Mean Corpuscular HGB CONC 31.8 g/dL (32.0-36.0); Mean Corpuscular Hemoglobin 31.5 pg (27.0-31.0); Mean Corpuscular Volume 98.8 fL (78.0-98.0); Mean Platelet Volume 7.3 fL (7.4-10.4); Platelet Count 422 thou/uL (130-400); RBC Distribution Width 13.5 % (11.5-14.5); Red Blood Cell (RBC) Count 3.11 mill/uL (4.20-5.40); White Blood Cell (WBC) Count 18.7 thou/uL (4.8-10.8)
[2020-01-01] MEDS: Levothyroxine Sodium 100 MCG TAB PO SCH (06:21)
--- NOTE | 2020-01-01 08:20 | PRG ---
DATE OF SERVICE: 01/01/2020 SUBJECTIVE: Ms. Canales is a 74-year-old white female with ESRD and admitted for pneumonia, complicated by empyema. She has undergone pulmonary decortication. We are following her up for her management of her ESRD. She is tolerating her current peritoneal dialysis. No new complaints today. No chest pain or shortness of breath. OBJECTIVE: VITAL SIGNS: Blood pressure 131/108, heart rate 86, respiratory rate 18, O2 saturation 94%, and temperature 98.5. GENERAL: Awake, alert, comfortable, not in distress. SKIN: Adequate turgor. HEENT: Slightly pale conjunctivae. Anicteric sclerae. No neck mass. No carotid bruits. No JVD. CHEST: No deformities. LUNGS: Decreased breath sounds. HEART: Normal sinus rhythm. No murmur. No gallops. No rubs. ABDOMEN: Globular, soft, nontender. No masses. Positive for PD catheter. EXTREMITIES: No edema. No deformities. MEDICATIONS: Of January 01, 2020, reviewed. LABORATORY DATA: Of January 01, 2020; white count 18.7, hemoglobin 9.8. On December 31, 2019; sodium 142, potassium 3.1, chloride 101, carbon dioxide 25. On January 01, 2020, glucose 202. ASSESSMENT AND PLAN: 1. End-stage renal disease, stable, continue current CCPD regimen. Using 2.5% PD solution. Ultrafiltration is being tolerated. 2. Pneumonia/empyema, clinically improving, status post pulmonary decortication. Status post chest tube placement with subsequent removal. On IV antibiotics. Agree with current management. Recheck CBC and basic metabolics in a.m. Job ID: [id number]
[2020-01-01] MEDS: Losartan 25 MG TAB PO SCH (09:45)
[2020-01-01] MEDS: Isosorbide Mononitrate (ER) 30 MG TAB PO SCH (09:46)
[2020-01-01] MEDS: Fish Oil 1,000 MG CAP PO SCH ×2 (09:46→21:05)
[2020-01-01] MEDS: cloNIDine 0.1 MG TAB PO SCH ×2 (09:46→21:05)
[2020-01-01] MEDS: Carvedilol 6.25 MG TAB PO SCH ×2 (09:46→21:05)
[2020-01-01] MEDS: NIFEdipine XL 60 MG TAB PO SCH (09:46)
[2020-01-01] MEDS: Citalopram 20 MG TAB PO SCH (09:47)
[2020-01-01] MEDS: traMADol HCl 50 MG TAB PO SCH ×2 (09:47→21:06)
[2020-01-01] MEDS: Multivit, Therapeutic 1 TAB PO SCH (09:48)
[2020-01-01] MEDS: buPROPion 75 MG TAB PO SCH ×2 (09:48→21:06)
[2020-01-01] MEDS: Amlodipine 5 MG TAB PO SCH (09:48)
[2020-01-01] MEDS: Gabapentin 300 MG CAP PO SCH ×2 (09:48→21:05)
[2020-01-01] MEDS: Saccharomyces boulardii 250 MG CAP PO SCH (09:48)
[2020-01-01] MEDS: Insulin Glargine 15 UNITS in Pre-Filled Syringe 1 EACH SC SCH ×2 (09:49→21:11)
[2020-01-01] MEDS: hydrALAZINE 25 MG TAB PO SCH ×4 (09:49→21:06)
[2020-01-01] MEDS: Enoxaparin Sodium 30 MG/0.3 ML SYRINGE SC SCH (09:49)
[2020-01-01] MEDS: Ferrous Sulfate 325 MG TAB PO SCH ×2 (09:49→21:05)
[2020-01-01] MEDS: Insulin Regular 300 UNITS/3 ML VIAL SC PRN (11:34)
[2020-01-01 11:47] LABS: Anion Gap 20 mmol/L (10-20); BUN (Urea Nitrogen) 52 mg/dL (9.8-20.1); Calc. Creatinine Clearance 7 mL/min (70-130); Calcium 8.6 mg/dL (7.8-10.44); Carbon Dioxide 20 mmol/L (23-31); Chloride 98 mmol/L (98-107); Estimated GFR-MDRD 4; Glucose 369 mg/dL (83-110); Potassium 3.5 mmol/L (3.5-5.1); Sodium 134 mmol/L (136-145)
--- NOTE | 2020-01-01 12:15 | PDOC.HOSPP ---
- Subjective Encounter Date: 01/01/20 Encounter Time: 09:40 Subjective: talk to spouse, pt is much more alert and conversing, though words are not very clear and she has trouble in finding words. cw SP for speech and PT and possible rehab. - Objective Vital Signs & Weight: Vital Signs (12 hours) Temp Pulse Resp BP Pulse Ox 01/01/20 11:23 98.9 F 01/01/20 10:25 88 18 94 L 01/01/20 09:49 87 143/63 H 01/01/20 09:48 87 143/63 H 01/01/20 09:46 87 143/63 H 01/01/20 08:00 93 L 01/01/20 07:11 98.5 F 01/01/20 06:38 87 16 93 L 01/01/20 04:00 98.6 F 01/01/20 02:52 79 16 94 L Weight Admit Weight 164 lb Weight 174 lb 2.643 oz Most Recent Monitor Data Heart Rate from ECG 86 NIBP 131/108 NIBP BP-Mean 115 Respiration from ECG 18 SpO2 94 I&O: 12/31/19 01/01/20 01/02/20 06:59 06:59 06:59 Intake Total 750 1230 360 Output Total 312 1200 Balance 438 30 360 Result Diagrams: 01/01/20 03:10 01/01/20 11:19 Additional Labs: Accuchecks 01/01/20 01/01/20 12/31/19 10:46 06:26 20:51 POC Glucose 429 H 202 H 177 H 12/31/19 12/31/19 18:53 12:27 POC Glucose 172 H 213 H Hospitalist ROS - Medication Medications: Active Medications Generic Name Dose Route Start Last Admin Trade Name Freq PRN Reason Stop Dose Admin Acetaminophen 650 mg 12/28/19 12:37 12/29/19 23:55 Tylenol PO 650 mg Q4H PRN Administration Fever > 38.5C, LOVE or mild pain Hydrocodone Bitart/Acetaminophen 1 tab 12/25/19 18:20 12/30/19 12:30 [place] 5/325 PO 1 tab Q4H PRN Administration Moderate Pain (4-6) Albuterol/Ipratropium 3 ml 12/27/19 18:30 01/01/20 10:25 Duoneb NEB 3 ml [id number] MIKE Administration Amlodipine Besylate 5 mg 12/25/19 09:00 01/01/20 09:48 Norvasc PO 5 mg DAILY MIKE Administration Atorvastatin Calcium 20 mg 12/24/19 21:00 12/31/19 20:41 Lipitor PO 20 mg HS MIKE Administration Bupropion HCl 75 mg 12/24/19 21:00 01/01/20 09:48 Wellbutrin PO 75 mg BID MIKE Administration Carvedilol 12.5 mg 12/24/19 21:00 01/01/20 09:46 Coreg PO 12.5 mg BID MIKE Administration Citalopram Hydrobromide 40 mg 12/29/19 09:00 01/01/20 09:47 Celexa PO 40 mg DAILY MIKE Administration Clonidine 0.1 mg 12/24/19 21:00 01/01/20 09:46 Catapres PO 0.1 mg BID MIKE Administration Enoxaparin Sodium 30 mg 12/29/19 09:00 01/01/20 09:49 Lovenox SC 30 mg 09 MIKE Administration Ferrous Sulfate 325 mg 12/24/19 21:00 01/01/20 09:49 Feosol PO 325 mg BID MIKE Administration Fish Oil 1,000 mg 12/24/19 21:00 01/01/20 09:46 Fish Oil PO 1,000 mg BID MIKE Administration Gabapentin 600 mg 12/24/19 21:00 01/01/20 09:48 Neurontin PO 600 mg BID MIKE Administration Hydralazine HCl 25 mg 12/24/19 17:00 01/01/20 09:49 Apresoline PO 25 mg QID IMKE Administration Insulin Glargine 15 units/ 0.15 mls @ 0 mls/hr 12/25/19 09:00 01/01/20 09:49 Miscellaneous Medication SC 0.15 mls QAM MIKE Administration Insulin Glargine 15 units/ 0.15 mls @ 0 mls/hr 12/24/19 21:00 12/31/19 21:00 Miscellaneous Medication SC Not Given HS MIKE Cefepime HCl 1 gm/ Sodium 100 mls @ 200 mls/hr 12/31/19 16:00 12/31/19 19:20 Chloride IVPB 100 mls Q2D@1600 MIKE Administration Insulin Human Regular 0 units 12/28/19 12:37 01/01/20 11:34 Humulin R SC 6 unit .MILD SLIDING SCALE PRN Administration Mild Correctional Scale Isosorbide Mononitrate 30 mg 12/25/19 09:00 01/01/20 09:46 Imdur Er PO 30 mg DAILY MIKE Administration Lactulose 30 gm 12/27/19 21:00 01/01/20 11:29 Lactulose PO Not Given BID MIKE Levothyroxine Sodium 100 mcg 12/24/19 06:00 01/01/20 06:21 Synthroid PO 100 mcg 0600 MIKE Administration Losartan Potassium 25 mg 12/25/19 09:00 01/01/20 09:45 Cozaar PO 25 mg DAILY MIKE Administration Multivitamins 1 tab 12/25/19 09:00 01/01/20 09:48 Theragran PO 1 tab DAILY MIKE Administration Nifedipine 60 mg 12/25/19 09:00 01/01/20 09:46 Procardia Xl PO 60 mg DAILY MIKE Administration Pantoprazole Sodium 40 mg 12/25/19 09:00 01/01/20 09:48 Protonix PO 40 mg DAILY MIKE Administration Saccharomyces Boulardii 250 mg 12/27/19 09:00 01/01/20 09:48 Florastor PO 250 mg DAILY MIKE Administration Sodium Chloride 10 ml 12/28/19 21:00 01/01/20 11:35 Flush - Normal Saline IVF 10 ml Q12HR MIKE Administration Tramadol HCl 50 mg 12/24/19 21:00 01/01/20 09:47 Ultram PO 50 mg BID MIKE Administration - Exam General Appearance: NAD, awake alert Eye: PERRL ENT: normocephalic atraumatic Neck: supple Heart: RRR Respiratory: CTAB, normal chest expansion Gastrointestinal: soft, normal bowel sounds Neurological: speech deficit Neurological - other findings: memory impairment Psychiatric: normal affect, normal behavior Hosp A/P - Plan (1) Pneumonia Code(s): J18.9 - PNEUMONIA, UNSPECIFIED ORGANISM Status: Acute (2) (3) DM2 (diabetes mellitus, type 2) Status: Chronic (4) GERD (gastroesophageal reflux disease) Code(s): K21.9 - GASTRO-ESOPHAGEAL REFLUX DISEASE WITHOUT ESOPHAGITIS Status: Chronic Qualifiers: (5) HTN (hypertension) Code(s): I10 - ESSENTIAL (PRIMARY) HYPERTENSION Status: Chronic * Acute respiratory failure with hypoxemia, sepsis, due to left sided pneumonia with empyema. She is post decortication * Continue Cefepime and Vancomycin - cultures to date are negative * ESRD on PD- stable * Continue to encourage oral intake * HTN - blood pressure is stable * DM- is stable * Stable for transfer out of the ICU * ESRD (end stage renal disease) on dialysis -peritoneal dialysis -Cr keep trending up - she is getting PD? probable dementia Memory impairment, in addition to above --tsh, b12 nl range --needs neuropsychological outpt workup when acuity and rehab over. Placed PT consult ambulate rehap placement. discussed these workup and options to the .
[2020-01-01] MEDS ORDERED: Insulin Regular 300 UNITS/3 ML VIAL SC STA (12:18)
--- NOTE | 2020-01-01 13:57 | PRG ---
DATE OF SERVICE: 01/01/2020 PRESENT ILLNESS: She is improving and is concerned about the fact that she has weakness of her voice. This is probably related to previous intubation at the time of decortication. She denies any fevers or chills. She is not producing any sputum. She has eaten a small amount of her diet. PHYSICAL EXAMINATION: VITAL SIGNS: Blood pressure is 146/117. Heart rate is 94. She is afebrile. Oxygen saturation is 94% on 4 L nasal cannula. GENERAL: She is awake and alert, but modestly confused. She knows that she is in the hospital. She does not remember seeing me yesterday. She does have whisper type voice today. LUNGS: Rhonchi, greater on the left than on the right. HEART: Regular rate and rhythm. She has no audible murmur. ABDOMEN: Soft. Bowel sounds are normal. EXTREMITIES: She moves all extremities appropriately to both spontaneous and command. LABORATORY DATA: White count 18,700, slowly trending downwards; hemoglobin is 9.8; platelet count 422,000. Electrolytes include sodium of 134; potassium 3.5; chloride 98; CO2 is 20; BUN 52; creatinine 9.5, consistent with her known renal failure; glucose is ranging from 170 to 430. IMPRESSION: 1. Status post decortication for pneumonia and empyema. 2. End-stage renal disease. PLAN: We will continue advancing her diet and activity as tolerated. She is going to need significant rehab. Job ID: [id number]
[2020-01-01] MEDS: Atorvastatin Calcium 20 MG TAB PO SCH (21:06)
[2020-01-02 03:40] LABS: #Eosinphils 0.3 thou/uL (0.0-0.7); #Lymphocytes 1.1 thou/uL (1.20-3.40); #Monocytes 1.1 thou/uL (0.11-0.59); #Neutrophils 12.3 thou/uL (1.40-6.50); %Lymphocytes 7.6 % (21.0-51.0); %Monocytes 7.2 % (0.0-10.0); %Neutrophils 83.2 % (42.0-75.0); Hemoglobin 9.6 g/dL (12.0-16.0); Mean Corpuscular HGB CONC 31.6 g/dL (32.0-36.0); Mean Corpuscular Hemoglobin 30.8 pg (27.0-31.0); Mean Corpuscular Volume 97.6 fL (78.0-98.0); Mean Platelet Volume 7.6 fL (7.4-10.4); Platelet Count 393 thou/uL (130-400); RBC Distribution Width 13.2 % (11.5-14.5); Red Blood Cell (RBC) Count 3.12 mill/uL (4.20-5.40); White Blood Cell (WBC) Count 14.8 thou/uL (4.8-10.8)
[2020-01-02 03:57] LABS: Anion Gap 21 mmol/L (10-20); BUN (Urea Nitrogen) 58 mg/dL (9.8-20.1); Calc. Creatinine Clearance 6 mL/min (70-130); Calcium 8.8 mg/dL (7.8-10.44); Carbon Dioxide 21 mmol/L (23-31); Chloride 99 mmol/L (98-107); Estimated GFR-MDRD 4; Glucose 229 mg/dL (83-110); Potassium 3.5 mmol/L (3.5-5.1); Sodium 137 mmol/L (136-145)
[2020-01-02] MEDS: Levothyroxine Sodium 100 MCG TAB PO SCH (06:16)
[2020-01-02] MEDS: HYDROcodone/Acetaminophen 5/325 mg Tablet PO PRN (06:57)
--- NOTE | 2020-01-02 09:15 | PRG ---
DATE OF SERVICE: 01/02/2020 SUBJECTIVE: Ms. Canales is a 74-year-old white female, who was initially admitted for pneumonia. She was ruled out for COVID-19. We are following her up for peritoneal dialysis. She underwent peritoneal dialysis without difficulty. Still complaining of some pleuritic chest pain. Please note, her pneumonia was complicated by the development of an empyema and has undergone a pulmonary decortication. She is being evaluated for possible rehab placement. OBJECTIVE: VITAL SIGNS: Blood pressure is 134/63 with heart rate of 82, respiratory rate 20, temperature 99.5, and pulse ox 97%. GENERAL: Awake, supine, comfortable, not in distress. SKIN: Adequate turgor. HEENT: She has pinkish conjunctivae. Anicteric sclerae. NECK: No neck mass. No carotid bruits. No JVD. CHEST: No deformities. LUNGS: Clear breath sounds. HEART: Normal sinus rhythm. No murmur. No gallops. No rubs. ABDOMEN: Globular, soft, and nontender. No masses. EXTREMITIES: No edema. MEDICATIONS: Medications of January 02, 2020, were reviewed. LABORATORY DATA: Laboratories of January 02, 2020, showed white count 14.8, hemoglobin 9.6. Sodium 137, potassium 3.5, chloride 99, carbon dioxide 21, BUN 58, creatinine 9.78, glucose 229, and calcium 8.8. ASSESSMENT AND PLAN: 1. End-stage renal disease, stable. We will change her current PD regimen to a 2.5% PD solution using a 2.5 L fill volume at the same time of 9 hours. Fluid removal as tolerated. She is tolerating the current ultrafiltration. 2. Status post pneumonia/empyema-currently on IV antibiotics. Status post pulmonary decortication. 3. Anemia, continuing to observe p.r.n. blood transfusion. Currently, on iron supplementation. Job ID: [id number]
[2020-01-02] MEDS: Fish Oil 1,000 MG CAP PO SCH ×2 (10:31→20:33)
[2020-01-02] MEDS: Multivit, Therapeutic 1 TAB PO SCH (10:32)
[2020-01-02] MEDS: buPROPion 75 MG TAB PO SCH ×2 (10:32→20:33)
[2020-01-02] MEDS: Carvedilol 6.25 MG TAB PO SCH ×2 (10:32→20:32)
[2020-01-02] MEDS: Losartan 25 MG TAB PO SCH (10:32)
[2020-01-02] MEDS: Isosorbide Mononitrate (ER) 30 MG TAB PO SCH (10:32)
[2020-01-02] MEDS: Citalopram 20 MG TAB PO SCH (10:32)
[2020-01-02] MEDS: Ferrous Sulfate 325 MG TAB PO SCH ×2 (10:32→20:33)
[2020-01-02] MEDS: Saccharomyces boulardii 250 MG CAP PO SCH (10:33)
[2020-01-02] MEDS: cloNIDine 0.1 MG TAB PO SCH ×2 (10:33→20:33)
[2020-01-02] MEDS: NIFEdipine XL 60 MG TAB PO SCH (10:33)
[2020-01-02] MEDS: Gabapentin 300 MG CAP PO SCH ×2 (10:33→20:33)
[2020-01-02] MEDS: hydrALAZINE 25 MG TAB PO SCH ×4 (10:34→20:33)
[2020-01-02] MEDS: Enoxaparin Sodium 30 MG/0.3 ML SYRINGE SC SCH (10:34)
[2020-01-02] MEDS: Amlodipine 5 MG TAB PO SCH (10:34)
[2020-01-02] MEDS: Insulin Glargine 15 UNITS in Pre-Filled Syringe 1 EACH SC SCH ×2 (10:44→20:34)
[2020-01-02] MEDS: traMADol HCl 50 MG TAB PO SCH ×2 (11:59→20:34)
[2020-01-02] MEDS: cefTRIAXone\\ROCEPHIN 2 GM in Sodium Chloride 0.9% 100 ML IVPB SCH (12:19)
[2020-01-02] MEDS: metroNIDAZOLE 250 MG in Admixture Fee 2 EACH IVPB SCH ×2 (12:51→20:35)
--- NOTE | 2020-01-02 13:39 | PDOC.HOSPP ---
- Subjective Encounter Date: 01/02/20 Encounter Time: 11:00 Subjective: pt doing well, spouse at bedside, wbcs trending down, renal note reviewed. - Objective Vital Signs & Weight: Vital Signs (12 hours) Temp Pulse Resp BP Pulse Ox 01/02/20 12:19 85 113/75 01/02/20 12:00 98.4 F 01/02/20 10:37 85 17 95 01/02/20 10:34 82 01/02/20 10:33 82 136/66 01/02/20 10:32 136/66 01/02/20 08:15 97 01/02/20 08:14 82 20 97 01/02/20 07:12 99.5 F 01/02/20 04:00 98.8 F 01/02/20 02:54 93 14 97 Weight Admit Weight 164 lb Weight 174 lb 13.225 oz Most Recent Monitor Data Heart Rate from ECG 86 NIBP 113/75 NIBP BP-Mean 87 Respiration from ECG 17 SpO2 96 I&O: 01/01/20 01/02/20 01/03/20 06:59 06:59 06:59 Intake Total 1230 1540 Output Total 1200 1400 Balance 30 140 Result Diagrams: 01/02/20 03:14 01/02/20 03:14 Additional Labs: Accuchecks 01/02/20 01/02/20 01/01/20 11:04 06:22 21:15 POC Glucose 323 H 234 H 241 H 01/01/20 16:09 POC Glucose 194 H Hospitalist ROS - Medication Medications: Active Medications Generic Name Dose Route Start Last Admin Trade Name Freq PRN Reason Stop Dose Admin Acetaminophen 650 mg 12/28/19 12:37 12/29/19 23:55 Tylenol PO 650 mg Q4H PRN Administration Fever > 38.5C, LOVE or mild pain Hydrocodone Bitart/Acetaminophen 1 tab 12/25/19 18:20 01/02/20 06:57 [place] 5/325 PO 1 tab Q4H PRN Administration Moderate Pain (4-6) Albuterol/Ipratropium 3 ml 12/27/19 18:30 01/02/20 10:37 Duoneb NEB 3 ml [id number] MIKE Administration Amlodipine Besylate 5 mg 12/25/19 09:00 01/02/20 10:34 Norvasc PO 5 mg DAILY MIKE Administration Atorvastatin Calcium 20 mg 12/24/19 21:00 01/01/20 21:06 Lipitor PO 20 mg HS MIKE Administration Bupropion HCl 75 mg 12/24/19 21:00 01/02/20 10:32 Wellbutrin PO 75 mg BID MIKE Administration Carvedilol 12.5 mg 12/24/19 21:00 01/02/20 10:32 Coreg PO 12.5 mg BID MIKE Administration Citalopram Hydrobromide 40 mg 12/29/19 09:00 01/02/20 10:32 Celexa PO 40 mg DAILY MIKE Administration Clonidine 0.1 mg 12/24/19 21:00 01/02/20 10:33 Catapres PO 0.1 mg BID MIKE Administration Enoxaparin Sodium 30 mg 12/29/19 09:00 01/02/20 10:34 Lovenox SC 30 mg 0900 MIKE Administration Ferrous Sulfate 325 mg 12/24/19 21:00 01/02/20 10:32 Feosol PO 325 mg BID MIKE Administration Fish Oil 1,000 mg 12/24/19 21:00 01/02/20 10:31 Fish Oil PO 1,000 mg BID MIKE Administration Gabapentin 600 mg 12/24/19 21:00 01/02/20 10:33 Neurontin PO 600 mg BID MIKE Administration Hydralazine HCl 25 mg 12/24/19 17:00 01/02/20 12:19 Apresoline PO 25 mg QID MIKE Administration Insulin Glargine 15 units/ 0.15 mls @ 0 mls/hr 12/25/19 09:00 01/02/20 10:44 Miscellaneous Medication SC 0.15 mls QAM MIKE Administration Insulin Glargine 15 units/ 0.15 mls @ 0 mls/hr 12/24/19 21:00 01/01/20 21:11 Miscellaneous Medication SC 0.15 mls HS MIKE Administration Ceftriaxone Sodium 2 gm/ 100 mls @ 200 mls/hr 01/02/20 12:00 01/02/20 12:19 Sodium Chloride IVPB 100 mls 1200 MIKE Administration Metronidazole 250 mg/ 50 mls @ 100 mls/hr 01/02/20 14:00 01/02/20 12:51 Miscellaneous Medication IVPB 50 mls Q8HR MIKE Administration Isosorbide Mononitrate 30 mg 12/25/19 09:00 01/02/20 10:32 Imdur Er PO 30 mg DAILY MIKE Administration Levothyroxine Sodium 100 mcg 12/24/19 06:00 01/02/20 06:16 Synthroid PO 100 mcg 0600 MIKE Administration Losartan Potassium 25 mg 12/25/19 09:00 01/02/20 10:32 Cozaar PO 25 mg DAILY MIKE Administration Multivitamins 1 tab 12/25/19 09:00 01/02/20 10:32 Theragran PO 1 tab DAILY MIKE Administration Nifedipine 60 mg 12/25/19 09:00 01/02/20 10:33 Procardia Xl PO 60 mg DAILY MIKE Administration Pantoprazole Sodium 40 mg 12/25/19 09:00 01/02/20 10:31 Protonix PO 40 mg DAILY MIKE Administration Saccharomyces Boulardii 250 mg 12/27/19 09:00 01/02/20 10:33 Florastor PO 250 mg DAILY MIKE Administration Sodium Chloride 10 ml 12/28/19 21:00 01/02/20 12:20 Flush - Normal Saline IVF 10 ml Q12HR MIKE Administration Tramadol HCl 50 mg 12/24/19 21:00 01/02/20 11:59 Ultram PO Not Given BID MIKE - Exam General Appearance: NAD Eye: PERRL ENT: normocephalic atraumatic Heart: RRR, normal peripheral pulses Respiratory: CTAB, normal chest expansion Gastrointestinal: soft, normal bowel sounds Neurological: no focal deficits Hosp A/P - Plan (1) Pneumonia Code(s): J18.9 - PNEUMONIA, UNSPECIFIED ORGANISM Status: Acute (2) (3) DM2 (diabetes mellitus, type 2) Status: Chronic (4) GERD (gastroesophageal reflux disease) Code(s): K21.9 - GASTRO-ESOPHAGEAL REFLUX DISEASE WITHOUT ESOPHAGITIS Status: Chronic Qualifiers: (5) HTN (hypertension) Code(s): I10 - ESSENTIAL (PRIMARY) HYPERTENSION Status: Chronic * Acute respiratory failure with hypoxemia, sepsis, due to left sided pneumonia with empyema. She is post decortication * Continue Cefepime and Vancomycin as wbcs still high - cultures to date are negative * ESRD on PD- stable * Continue to encourage oral intake * HTN - blood pressure is stable * DM- is stable * Stable for transfer out of the ICU * ESRD (end stage renal disease) on dialysis -peritoneal dialysis -Cr keep trending up - she is getting PD? probable dementia Memory impairment, in addition to above-----------------> resolved. --tsh, b12 nl range Placed PT consult ambulate - will change abx to PO tomorrow if wbcs keep trending down. Likely can be discharged to rehab once ID looked over.
--- NOTE | 2020-01-02 13:59 | CON ---
DATE OF CONSULTATION: 01/02/2020 REASON FOR CONSULTATION: Possible pneumonia, hemorrhagic pleural infusion. HISTORY OF PRESENT ILLNESS: Ms. Canales is a 74-year-old lady whom I had seen in 08/2014 when she presented with a history of nephrolithiasis, type 2 diabetes, hypertension, and chronic recurrent GI bleed, presumably due to diverticulosis. In 08/2014, she had a pyelonephritis due to a fairly susceptible E coli. She was treated successfully. In 04/2016, she developed gastrointestinal bleeding and had AV malformations identified. In 01/2017, she was admitted with hypertensive emergency, encephalopathy, associated with diastolic congestive heart failure. In 2017, she was admitted 5 or 6 times for mostly issues related to her cardiomyopathy and renal failure and volume overload. Then, in 01/2019, she came again with congestive heart failure, worsening hypertension, and end-stage renal disease. She had been started on hemodialysis and then eventually was transitioned to peritoneal dialysis, which she has been doing thus far without evidence of peritoneal dialysis complications. She was brought in on 12/22 through the emergency room because of worsening cough, a confusional state, and dyspnea. She had a negative COVID test. The initial findings included BP 130/50, pulse 67, respirations 18, O2 saturation 92 on room air, and temperature 99.7, and temperature went up to 102.2. She did not appear to be in distress. Lung exam showed normal breath sounds. No wheezing or crackles were described by the ER physician. Heart exam was described as normal. Abdomen was not tender or distended. Speech was described as normal without focal motor deficits. Other findings on admission included white cell count 15.7, hemoglobin 11, and platelets 316 with 81% neutrophils. Sodium 134, creatinine on arrival was 8.92, and glucose 54. Liver profile normal. Albumin 3.6. Urinalysis with wbc 4-6. Microbiology with negative blood cultures x2. No urine samples were submitted. Initial chest x-ray showed left lower lobe airspace disease, blunting of costophrenic angle. She developed a progressively enlarging pleural effusion. Had a CT, which showed necrotizing pneumonia in the left lung base with the left pleural effusion, which became more prominent over the course of the admission. Eventually, she required a decortication, which was carried out by Dr. Brenner. The operative report was reviewed and this was done under general endotracheal anesthesia. Two port incisions were placed. Loculations were broken down bluntly and chest was copiously irrigated. James drains were placed. She has been in the IMCU since. The chest tubes have been removed now. Cultures have been negative from the chest tube. I do not see any chest fluid submitted for testing in this database except for cultures and they are resulted negative. No wbc's were seen in the pleural fluid. Currently, she is receiving cefepime and she has been afebrile through the hospital stay and continues to be dialyzed via the peritoneal route. She has dryness of the throat, but she is able to answer questions and follows commands, recognizes her in the room. She knows she is in the hospital. Denies any headaches. No shortness of breath or chest pain. No abdominal pain. She does not have much urine output. MEDICAL HISTORY: 1. Cardiomyopathy. 2. Hypertension. 3. End-stage renal disease. 4. Type 2 diabetes. 5. Nephrolithiasis. 6. Recurrent UTIs. 7. Rectal bleeding. 8. Diverticulosis. 9. AV malformations. 10. Hypothyroidism with prior thyroid resection. PAST SURGICAL HISTORY: 1. Shoulder surgery. 2. Lumbar laminectomy. 3. Thyroidectomy. 4. Appendectomy. 5. Cholecystectomy. 6. Hysterectomy. SOCIAL HISTORY: Never smoker. Lives with in the area. ALLERGIES: CYCLOBENZAPRINE AND PENICILLIN WITH RASH. CURRENT MEDICATIONS: 1. Tylenol. 2. [place]. 3. DuoNeb. 4. Norvasc. 5. Dulcolax. 6. Wellbutrin. 7. Coreg. 8. Cefepime, adjusted for renal function. 9. Clonidine. 10. Dextrose. 11. Sublimaze. FAMILY HISTORY: Noncontributory. PHYSICAL EXAMINATION: VITAL SIGNS: T-max 99.1 and now 99.5, BP 130/60, pulse 85, respirations 17, O2 saturation 95% on 2 L nasal cannula. SKIN: Very minor changes in the peritoneal and gluteal region. Peripheral IV access. She has a normal-appearing exit site of the peritoneal dialysis catheter site. No lymphadenopathy. HEENT: Ocular movements conjugate. Oral cavity, still quite a few teeth in place with some decay and gum disease. NECK: Supple. No jugular vein distention. LUNGS: With diminished breath sounds in the left side. Few crackles. HEART: S1 and S2. Regular rate. No S3 or S4. ABDOMEN: Soft, not distended or tender. No ascites. No bladder distention. EXTREMITIES: No joint inflammatory activity. Moves extremities on command. No edema. Pulses 1+ in dorsalis pedis. Plantar responses are flexor. NEUROLOGIC: Awake, alert, follows commands. She is a bit dysphonic from the ET tube for the thoracotomy. LABORATORY DATA: White cell count is 13.3, hemoglobin 10.8, and platelets 374 with a normal differential except for lymphocytopenia. Sodium 137, creatinine 9.78. ASSESSMENT: 1. Cardiomyopathy. 2. 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 3. Type 2 diabetes with end-stage renal disease, on peritoneal dialysis. 4. What appears to be a necrotizing pneumonia on left side with a parapneumonic effusion with loculation, which required thoracotomy. The pleural fluid was mostly hemorrhagic, which is not surprising vis-a-vis end-stage renal disease. Cultures are negative. DISCUSSION: The patient has community-acquired pneumonia with possible anaerobic component and we will transition her to Rocephin/Clindamycin. Eventually, we will be able to chaange to oral antimicrobial therapy. Check Streptococcus antigen and Legionella antigen in urine. Anaerobes are less likely to have a role in this process, although not completely ruled out. We will have Flagyl adjusted for renal function. Job ID: [id number] [facility]
[2020-01-02] MEDS: Atorvastatin Calcium 20 MG TAB PO SCH (20:33)
--- NOTE | 2020-01-02 21:56 | PRG ---
DATE OF SERVICE: 01/02/2020 SUBJECTIVE: Padmini Canales is clinically unchanged. Her chest tube is out. She is in no distress. Dr. Noonan was consulted today. She is clinically stabilized and is approaching a point where she could be transferred to rehab. OBJECTIVE: VITAL SIGNS: She is afebrile. Heart rates in 80s, respiratory rates in the teens, oximetry 95 on a cannula. LUNGS: Unchanged. HEART: Unchanged. ABDOMEN: Unchanged. IMPRESSION: Pneumonia with parapneumonic effusion that is sterile, now status post decortication. She can be transferred to the rehab at any time. Job ID: [id number]
[2020-01-03 04:25] LABS: #Eosinphils 0.4 thou/uL (0.0-0.7); #Lymphocytes 1.2 thou/uL (1.20-3.40); #Monocytes 1.1 thou/uL (0.11-0.59); %Basophils 0.1 % (0.0-1.0); %Eosinophils 2.9 % (0.0-10.0); %Lymphocytes 9.6 % (21.0-51.0); %Monocytes 8.7 % (0.0-10.0); %Neutrophils 78.6 % (42.0-75.0); Hemoglobin 9.3 g/dL (12.0-16.0); Mean Corpuscular HGB CONC 31.9 g/dL (32.0-36.0); Mean Corpuscular Volume 97.3 fL (78.0-98.0); Mean Platelet Volume 7.3 fL (7.4-10.4); Platelet Count 366 thou/uL (130-400); RBC Distribution Width 13.4 % (11.5-14.5); Red Blood Cell (RBC) Count 2.99 mill/uL (4.20-5.40); White Blood Cell (WBC) Count 12.7 thou/uL (4.8-10.8)
[2020-01-03 04:47] LABS: Anion Gap 20 mmol/L (10-20); BUN (Urea Nitrogen) 51 mg/dL (9.8-20.1); Calc. Creatinine Clearance 6 mL/min (70-130); Calcium 8.6 mg/dL (7.8-10.44); Carbon Dioxide 22 mmol/L (23-31); Chloride 97 mmol/L (98-107); Estimated GFR-MDRD 4; Glucose 210 mg/dL (83-110); Potassium 3.5 mmol/L (3.5-5.1); Sodium 135 mmol/L (136-145)
[2020-01-03] MEDS: metroNIDAZOLE 250 MG in Admixture Fee 2 EACH IVPB SCH ×3 (05:39→21:36)
[2020-01-03] MEDS: Levothyroxine Sodium 100 MCG TAB PO SCH (05:39)
[2020-01-03] MEDS: HYDROcodone/Acetaminophen 5/325 mg Tablet PO PRN ×2 (06:15→18:14)
[2020-01-03] MEDS: NIFEdipine XL 60 MG TAB PO SCH (08:29)
[2020-01-03] MEDS: Amlodipine 5 MG TAB PO SCH (08:29)
[2020-01-03] MEDS: Fish Oil 1,000 MG CAP PO SCH ×2 (08:30→21:36)
[2020-01-03] MEDS: Losartan 25 MG TAB PO SCH (08:30)
[2020-01-03] MEDS: Multivit, Therapeutic 1 TAB PO SCH (08:30)
[2020-01-03] MEDS: Gabapentin 300 MG CAP PO SCH ×2 (08:30→21:33)
[2020-01-03] MEDS: traMADol HCl 50 MG TAB PO SCH ×2 (08:30→21:33)
[2020-01-03] MEDS: Citalopram 20 MG TAB PO SCH (08:31)
[2020-01-03] MEDS: Ferrous Sulfate 325 MG TAB PO SCH ×2 (08:31→21:36)
[2020-01-03] MEDS: buPROPion 75 MG TAB PO SCH ×2 (08:31→21:33)
[2020-01-03] MEDS: Saccharomyces boulardii 250 MG CAP PO SCH (08:31)
[2020-01-03] MEDS: Carvedilol 6.25 MG TAB PO SCH ×2 (08:33→21:35)
[2020-01-03] MEDS: hydrALAZINE 25 MG TAB PO SCH ×4 (08:34→21:35)
[2020-01-03] MEDS: Isosorbide Mononitrate (ER) 30 MG TAB PO SCH (08:34)
[2020-01-03] MEDS: Enoxaparin Sodium 30 MG/0.3 ML SYRINGE SC SCH (08:34)
[2020-01-03] MEDS: cloNIDine 0.1 MG TAB PO SCH ×2 (08:34→21:33)
[2020-01-03] MEDS: Insulin Glargine 15 UNITS in Pre-Filled Syringe 1 EACH SC SCH ×2 (08:35→21:36)
--- NOTE | 2020-01-03 08:59 | PRG ---
DATE OF SERVICE: 01/03/2020 SUBJECTIVE: Ms. Canales is a 74-year-old white female with ESRD and followed by the [facility] for her peritoneal dialysis. She tolerated peritoneal dialysis yesterday. We have increased her fill volume to 2.5 L using a 2.5% PD solution. She was initially admitted for pneumonia and complicated by empyema. She underwent a pulmonary decortication, chest tube placement. Since that time, she is doing better. She is afebrile and the white count is going down. She still complains of occasional pleuritic chest pain. She is tolerating her p.o. intake. She denies any nausea or vomiting. OBJECTIVE: VITAL SIGNS: Blood pressure 120/96, heart rate 84, respiratory rate 14, O2 saturation 96%, and temperature 98.8. GENERAL: Awake, alert, comfortable, not in overt distress. SKIN: Adequate turgor. HEENT: She has slightly pale conjunctivae. Anicteric sclerae. NECK: No neck mass. No carotid bruits. No JVD. CHEST: No deformities. LUNGS: Clear breath sounds. No wheezing. No crackles. HEART: Normal sinus rhythm. No murmur, no gallops, no rubs. ABDOMEN: Globular, soft, nontender. No masses. EXTREMITIES: No edema. No deformities. MEDICATIONS: Medications of January 03, 2020, were reviewed. LABORATORY DATA: Laboratories of January 03, 2020; white count 12.7, hemoglobin 9.3. Sodium 135, potassium 3.5, chloride 97, carbon dioxide 22, BUN 51, creatinine 9.78, glucose 210, calcium 8.6. ASSESSMENT AND PLAN: 1. End-stage renal disease, stable, tolerating current peritoneal dialysis regimen. Continue said regimen, no changes to be made. 2. Pneumonia/empyema-clinically improving on IV antibiotics. Cefepime has been changed by Dr. Noonan to ceftriaxone. Continue supportive care. 3. Anemia. Continue p.r.n. blood transfusion. Job ID: [id number]
[2020-01-03] MEDS: cefTRIAXone\\ROCEPHIN 2 GM in Sodium Chloride 0.9% 100 ML IVPB SCH (11:17)
--- NOTE | 2020-01-03 14:24 | PDOC.HOSPP ---
- Subjective Encounter Date: 01/03/20 Encounter Time: 11:20 Subjective: she si sitting in the chair, talk to RN. pt wondering whether she can get abd..shots [i believe she meant heparin shot]. - Objective Vital Signs & Weight: Vital Signs (12 hours) Temp Pulse Pulse Pulse Resp BP BP 01/03/20 12:43 80 01/03/20 12:28 98.4 F 01/03/20 10:22 80 16 01/03/20 09:59 80 86 129/55 L 01/03/20 08:34 84 120/96 H 01/03/20 08:33 120/96 H 01/03/20 08:29 90 120/96 H 01/03/20 08:00 01/03/20 07:23 98.8 F 01/03/20 04:04 97.6 F 01/03/20 02:36 84 18 BP Pulse Ox 01/03/20 12:43 01/03/20 12:28 01/03/20 10:22 98 01/03/20 09:59 99/53 L 01/03/20 08:34 01/03/20 08:33 01/03/20 08:29 01/03/20 08:00 93 L 01/03/20 07:23 01/03/20 04:04 01/03/20 02:36 94 L Weight Admit Weight 169 lb 1.6 oz Weight 173 lb 8.061 oz Most Recent Monitor Data Heart Rate from ECG 73 NIBP 118/63 NIBP BP-Mean 81 Respiration from ECG 22 SpO2 98 I&O: 01/02/20 01/03/20 01/04/20 06:59 06:59 06:59 Intake Total 1540 1550 Output Total 1400 Balance 140 1550 Result Diagrams: 01/03/20 04:06 01/03/20 04:06 Additional Labs: Accuchecks 01/03/20 01/03/20 01/02/20 11:06 05:48 20:14 POC Glucose 245 H 218 H 282 H 01/02/20 17:10 POC Glucose 194 H Hospitalist ROS - Medication Medications: Active Medications Generic Name Dose Route Start Last Admin Trade Name Freq PRN Reason Stop Dose Admin Acetaminophen 650 mg 12/28/19 12:37 12/29/19 23:55 Tylenol PO 650 mg Q4H PRN Administration Fever > 38.5C, LOVE or mild pain Hydrocodone Bitart/Acetaminophen 1 tab 12/25/19 18:20 01/03/20 06:15 [place] 5/325 PO 1 tab Q4H PRN Administration Moderate Pain (4-6) Albuterol/Ipratropium 3 ml 12/27/19 18:30 01/03/20 10:22 Duoneb NEB 3 ml [id number] MIKE Administration Amlodipine Besylate 5 mg 12/25/19 09:00 01/03/20 08:29 Norvasc PO 5 mg DAILY MIKE Administration Atorvastatin Calcium 20 mg 12/24/19 21:00 01/02/20 20:33 Lipitor PO 20 mg HS MIKE Administration Bupropion HCl 75 mg 12/24/19 21:00 01/03/20 08:31 Wellbutrin PO 75 mg BID MIKE Administration Carvedilol 12.5 mg 12/24/19 21:00 01/03/20 08:33 Coreg PO 12.5 mg BID MIKE Administration Citalopram Hydrobromide 40 mg 12/29/19 09:00 01/03/20 08:31 Celexa PO 40 mg DAILY MIKE Administration Clonidine 0.1 mg 12/24/19 21:00 01/03/20 08:34 Catapres PO 0.1 mg BID MIKE Administration Enoxaparin Sodium 30 mg 12/29/19 09:00 01/03/20 08:34 Lovenox SC 30 mg 0900 MIKE Administration Ferrous Sulfate 325 mg 12/24/19 21:00 01/03/20 08:31 Feosol PO 325 mg BID MIKE Administration Fish Oil 1,000 mg 12/24/19 21:00 01/03/20 08:30 Fish Oil PO 1,000 mg BID MIKE Administration Gabapentin 600 mg 12/24/19 21:00 01/03/20 08:30 Neurontin PO 600 mg BID MIKE Administration Hydralazine HCl 25 mg 12/24/19 17:00 01/03/20 12:43 Apresoline PO 25 mg QID MIKE Administration Insulin Glargine 15 units/ 0.15 mls @ 0 mls/hr 12/25/19 09:00 01/03/20 08:35 Miscellaneous Medication SC 0.15 mls QAM MIKE Administration Insulin Glargine 15 units/ 0.15 mls @ 0 mls/hr 12/24/19 21:00 01/02/20 20:34 Miscellaneous Medication SC 0.15 mls HS MIKE Administration Ceftriaxone Sodium 2 gm/ 100 mls @ 200 mls/hr 01/02/20 12:00 01/03/20 11:17 Sodium Chloride IVPB 100 mls 1200 MIKE Administration Metronidazole 250 mg/ 50 mls @ 100 mls/hr 01/02/20 14:00 01/03/20 05:39 Miscellaneous Medication IVPB 50 mls Q8HR MIKE Administration Isosorbide Mononitrate 30 mg 12/25/19 09:00 01/03/20 08:34 Imdur Er PO 30 mg DAILY MIKE Administration Levothyroxine Sodium 100 mcg 12/24/19 06:00 01/03/20 05:39 Synthroid PO 100 mcg 0600 MIKE Administration Losartan Potassium 25 mg 12/25/19 09:00 01/03/20 08:30 Cozaar PO 25 mg DAILY MIKE Administration Multivitamins 1 tab 12/25/19 09:00 01/03/20 08:30 Theragran PO 1 tab DAILY MIKE Administration Nifedipine 60 mg 12/25/19 09:00 01/03/20 08:29 Procardia Xl PO 60 mg DAILY MIKE Administration Pantoprazole Sodium 40 mg 12/25/19 09:00 01/03/20 08:29 Protonix PO 40 mg DAILY MIKE Administration Saccharomyces Boulardii 250 mg 12/27/19 09:00 01/03/20 08:31 Florastor PO 250 mg DAILY MIKE Administration Sodium Chloride 10 ml 12/28/19 21:00 01/03/20 08:35 Flush - Normal Saline IVF 10 ml Q12HR MIKE Administration Tramadol HCl 50 mg 12/24/19 21:00 01/03/20 08:30 Ultram PO 50 mg BID MIKE Administration - Exam Eye: PERRL ENT: normocephalic atraumatic Neck: supple Heart: RRR Respiratory: CTAB, normal chest expansion Gastrointestinal: soft, normal bowel sounds Neurological: no focal deficits Hosp A/P - Plan (1) Pneumonia Code(s): J18.9 - PNEUMONIA, UNSPECIFIED ORGANISM Status: Acute (2) (3) DM2 (diabetes mellitus, type 2) Status: Chronic (4) GERD (gastroesophageal reflux disease) Code(s): K21.9 - GASTRO-ESOPHAGEAL REFLUX DISEASE WITHOUT ESOPHAGITIS Status: Chronic Qualifiers: (5) HTN (hypertension) Code(s): I10 - ESSENTIAL (PRIMARY) HYPERTENSION Status: Chronic * Acute respiratory failure with hypoxemia, sepsis, due to left sided pneumonia with empyema. * Necrotizing PNA * parapenumonic effusion * s/p post decortication * Continue ctx/clinda and flagyl * - cultures to date are negative * ESRD on PD- stable * Continue to encourage oral intake * HTN - blood pressure is stable * DM- is stable * Stable for transfer out of the ICU * ESRD (end stage renal disease) on dialysis -peritoneal dialysis -Cr keep trending up - she is getting PD? probable dementia Memory impairment, in addition to above-----------------> resolved. --tsh, b12 nl range Placed PT consult ambulate abx changed to CTX/clinda and flagyl -rehab pending -ok to transfer to medical floor.
--- NOTE | 2020-01-03 17:30 | PRG ---
DATE OF SERVICE: 01/03/2020 SUBJECTIVE: Padmini Canales is still pretty weak. OBJECTIVE: VITAL SIGNS: She is afebrile, heart rate is 80, respiratory rate is 18, oximetry is 98% on 2 L, and blood pressure 131/70. LUNGS: Unchanged. HEART: Unchanged. ABDOMEN: Unchanged. IMPRESSION: 1. End-stage renal disease, on peritoneal dialysis. 2. Sterile parapneumonic effusion is loculated, status post decortication. Nothing has grown on any of the cultures. PLAN: Antimicrobial therapy is being guided by Infectious Disease. She appears to be stable to move out of intermediate care. Job ID: [id number]
[2020-01-03] MEDS: Atorvastatin Calcium 20 MG TAB PO SCH (21:36)
[2020-01-04 06:03] LABS: #Eosinphils 0.4 thou/uL (0.0-0.7); #Lymphocytes 1.1 thou/uL (1.20-3.40); #Monocytes 1.1 thou/uL (0.11-0.59); #Neutrophils 7.2 thou/uL (1.40-6.50); %Basophils 0.2 % (0.0-1.0); %Eosinophils 3.7 % (0.0-10.0); %Lymphocytes 11.5 % (21.0-51.0); %Neutrophils 73.6 % (42.0-75.0); Hemoglobin 8.9 g/dL (12.0-16.0); Mean Corpuscular HGB CONC 31.3 g/dL (32.0-36.0); Mean Corpuscular Hemoglobin 30.5 pg (27.0-31.0); Mean Corpuscular Volume 97.5 fL (78.0-98.0); Mean Platelet Volume 7.6 fL (7.4-10.4); Platelet Count 353 thou/uL (130-400); RBC Distribution Width 13.4 % (11.5-14.5); White Blood Cell (WBC) Count 9.8 thou/uL (4.8-10.8)
[2020-01-04] MEDS: metroNIDAZOLE 250 MG in Admixture Fee 2 EACH IVPB SCH ×3 (06:06→22:50)
[2020-01-04] MEDS: Levothyroxine Sodium 100 MCG TAB PO SCH (06:06)
[2020-01-04 06:40] LABS: Anion Gap 20 mmol/L (10-20); BUN (Urea Nitrogen) 58 mg/dL (9.8-20.1); Calc. Creatinine Clearance 6 mL/min (70-130); Calcium 8.7 mg/dL (7.8-10.44); Carbon Dioxide 23 mmol/L (23-31); Chloride 97 mmol/L (98-107); Estimated GFR-MDRD 4; Glucose 166 mg/dL (83-110); Potassium 3.4 mmol/L (3.5-5.1); Sodium 137 mmol/L (136-145)
[2020-01-04] MEDS ORDERED: Potassium Chloride 20 MEQ TAB PO SCH (08:15)
[2020-01-04] MEDS ORDERED: EPOETIN ALFA-EPBX (ESRD) 4,000 UNIT/ML VIAL SC SCH (08:30)
--- NOTE | 2020-01-04 09:00 | PRG ---
DATE OF SERVICE: 01/04/2020 SUBJECTIVE: Ms. Canales is a 74-year-old white female with ESRD and followed up by the Renal Service for her maintenance CCPD. She underwent peritoneal dialysis last night without any difficulty. We were able to remove about 1.3 L of fluid. She tolerated said treatment. She was initially admitted for pneumonia complicated by empyema and status post pulmonary decortication. Doing well. Still feeling weak and tired. The patient is being considered for rehab placement. No other complaints today. OBJECTIVE: VITAL SIGNS: Blood pressure is 126/66, heart rate 80, respiratory rate 18, temperature 97.5, and pulse ox 97%. GENERAL: The patient is awake, alert, comfortable, not in distress. SKIN: Adequate turgor. HEENT: She has slightly pale conjunctivae. Anicteric sclerae. No neck mass. No carotid bruits. No JVD. CHEST: No deformities. LUNGS: Decreased breath sounds. HEART: Normal sinus rhythm. No murmur. No gallops. No rubs. ABDOMEN: Globular, soft, nontender. No masses. EXTREMITIES: No edema. No deformities. She does have a PD catheter. MEDICATIONS: Medications of January 04, 2020, reviewed. LABORATORY DATA: Laboratories of January 04, 2020; white count 9.8 and hemoglobin 8.9. Sodium 137, potassium 3.4, chloride 97, carbon dioxide 23, BUN 58, creatinine 10.1, glucose 166, and calcium 8.7. ASSESSMENT AND PLAN: 1. Pneumonia-status post empyema, clinically much improved. ID following. Continue current IV antibiotics. 2. End-stage renal disease, stable. Remove 1.3 L of ultrafiltration with peritoneal dialysis last night. Please note, we did increase her fill volume to 2.5 L using 2.5% PD solution. No changes will be made with the current peritoneal dialysis. 3. Anemia. We will now resume Epogen at 7500 units subcu every week. 4. Awaiting rehab placement. Agree with current management. Job ID: [id number]
[2020-01-04] MEDS: Losartan 25 MG TAB PO SCH (09:26)
[2020-01-04] MEDS: cloNIDine 0.1 MG TAB PO SCH ×2 (09:26→20:34)
[2020-01-04] MEDS: buPROPion 75 MG TAB PO SCH ×2 (09:27→20:35)
[2020-01-04] MEDS: NIFEdipine XL 60 MG TAB PO SCH (09:27)
[2020-01-04] MEDS: hydrALAZINE 25 MG TAB PO SCH ×4 (09:28→20:34)
[2020-01-04] MEDS: Saccharomyces boulardii 250 MG CAP PO SCH (09:28)
[2020-01-04] MEDS: Fish Oil 1,000 MG CAP PO SCH ×2 (09:28→20:34)
[2020-01-04] MEDS: Isosorbide Mononitrate (ER) 30 MG TAB PO SCH (09:28)
[2020-01-04] MEDS: Gabapentin 300 MG CAP PO SCH ×2 (09:29→20:34)
[2020-01-04] MEDS: Carvedilol 6.25 MG TAB PO SCH ×2 (09:30→20:33)
[2020-01-04] MEDS: Multivit, Therapeutic 1 TAB PO SCH (09:31)
[2020-01-04] MEDS: Amlodipine 5 MG TAB PO SCH (09:31)
[2020-01-04] MEDS: Ferrous Sulfate 325 MG TAB PO SCH ×2 (09:31→20:34)
[2020-01-04] MEDS: Citalopram 20 MG TAB PO SCH (09:31)
[2020-01-04] MEDS: Enoxaparin Sodium 30 MG/0.3 ML SYRINGE SC SCH (09:32)
[2020-01-04] MEDS: Insulin Glargine 15 UNITS in Pre-Filled Syringe 1 EACH SC SCH ×2 (09:32→20:41)
[2020-01-04] MEDS: cefTRIAXone\\ROCEPHIN 2 GM in Sodium Chloride 0.9% 100 ML IVPB SCH (12:00)
--- NOTE | 2020-01-04 14:06 | PDOC.HOSPP ---
- Subjective Encounter Date: 01/04/20 Encounter Time: 11:00 Subjective: pt had an episode of emesis, feels better, she has these events periodically at home as well, [PD pt], no fever or chills or cough.spouse at bedside, discussed st [facility] rehab options. - Objective Vital Signs & Weight: Vital Signs (12 hours) Temp Pulse Resp BP BP Pulse Ox 01/04/20 11:59 98.6 F 86 98 H 134/70 98 01/04/20 10:22 89 16 95 01/04/20 09:26 138/64 01/04/20 09:20 95 01/04/20 08:00 97.8 F 93 20 147/70 H 95 01/04/20 07:07 82 16 90 L 01/04/20 04:00 97.5 F L 80 18 126/66 97 Weight Admit Weight 169 lb 1.6 oz Weight 171 lb 11.841 oz Most Recent Monitor Data Heart Rate from ECG 73 NIBP 118/63 NIBP BP-Mean 81 Respiration from ECG 22 SpO2 98 I&O: 01/03/20 01/04/20 01/05/20 06:59 06:59 06:59 Intake Total 1550 510 Balance 1550 510 Result Diagrams: 01/04/20 05:42 01/04/20 05:42 Additional Labs: Accuchecks 01/04/20 01/04/20 01/03/20 11:56 06:12 20:50 POC Glucose 203 H 176 H 238 H 01/03/20 16:47 POC Glucose 208 H Hospitalist ROS - Medication Medications: Active Medications Generic Name Dose Route Start Last Admin Trade Name Freq PRN Reason Stop Dose Admin Acetaminophen 650 mg 12/28/19 12:37 12/29/19 23:55 Tylenol PO 650 mg Q4H PRN Administration Fever > 38.5C, LOVE or mild pain Hydrocodone Bitart/Acetaminophen 1 tab 12/25/19 18:20 01/03/20 18:14 [place] 5/325 PO 1 tab Q4H PRN Administration Moderate Pain (4-6) Albuterol/Ipratropium 3 ml 12/27/19 18:30 01/04/20 10:22 Duoneb NEB 3 ml [id number] MIKE Administration Amlodipine Besylate 5 mg 12/25/19 09:00 01/04/20 09:31 Norvasc PO 5 mg DAILY MIKE Administration Atorvastatin Calcium 20 mg 12/24/19 21:00 01/03/20 21:36 Lipitor PO 20 mg HS MIKE Administration Bupropion HCl 75 mg 12/24/19 21:00 01/04/20 09:27 Wellbutrin PO 75 mg BID MIKE Administration Carvedilol 12.5 mg 12/24/19 21:00 01/04/20 09:30 Coreg PO 12.5 mg BID MIKE Administration Citalopram Hydrobromide 40 mg 12/29/19 09:00 01/04/20 09:31 Celexa PO 40 mg DAILY MIKE Administration Clonidine 0.1 mg 12/24/19 21:00 01/04/20 09:26 Catapres PO 0.1 mg BID MIKE Administration Enoxaparin Sodium 30 mg 12/29/19 09:00 01/04/20 09:32 Lovenox SC 30 mg 0900 MIKE Administration Epoetin Jeff-epbx 7,500 unit 01/04/20 08:30 01/04/20 09:43 Retacrit SC 7,500 unit Q7D MIKE Administration Ferrous Sulfate 325 mg 12/24/19 21:00 01/04/20 09:31 Feosol PO 325 mg BID MIKE Administration Fish Oil 1,000 mg 12/24/19 21:00 01/04/20 09:28 Fish Oil PO 1,000 mg BID MIKE Administration Gabapentin 600 mg 12/24/19 21:00 01/04/20 09:29 Neurontin PO 600 mg BID MIKE Administration Hydralazine HCl 25 mg 12/24/19 17:00 01/04/20 12:00 Apresoline PO 25 mg QID MIKE Administration Insulin Glargine 15 units/ 0.15 mls @ 0 mls/hr 12/25/19 09:00 01/04/20 09:32 Miscellaneous Medication SC 0.15 mls QAM MIKE Administration Insulin Glargine 15 units/ 0.15 mls @ 0 mls/hr 12/24/19 21:00 01/03/20 21:36 Miscellaneous Medication SC 0.15 mls HS MIKE Administration Ceftriaxone Sodium 2 gm/ 100 mls @ 200 mls/hr 01/02/20 12:00 01/04/20 12:00 Sodium Chloride IVPB 100 mls 1200 MIKE Administration Metronidazole 250 mg/ 50 mls @ 100 mls/hr 01/02/20 14:00 01/04/20 06:06 Miscellaneous Medication IVPB 50 mls Q8HR MIKE Administration Isosorbide Mononitrate 30 mg 12/25/19 09:00 01/04/20 09:28 Imdur Er PO 30 mg DAILY MIKE Administration Levothyroxine Sodium 100 mcg 12/24/19 06:00 01/04/20 06:06 Synthroid PO 100 mcg 0600 MIKE Administration Losartan Potassium 25 mg 12/25/19 09:00 01/04/20 09:26 Cozaar PO 25 mg DAILY MIKE Administration Multivitamins 1 tab 12/25/19 09:00 01/04/20 09:31 Theragran PO 1 tab DAILY MIKE Administration Nifedipine 60 mg 12/25/19 09:00 01/04/20 09:27 Procardia Xl PO 60 mg DAILY MIKE Administration Pantoprazole Sodium 40 mg 12/25/19 09:00 01/04/20 09:30 Protonix PO 40 mg DAILY MIKE Administration Saccharomyces Boulardii 250 mg 12/27/19 09:00 01/04/20 09:28 Florastor PO 250 mg DAILY MIKE Administration Sodium Chloride 10 ml 12/28/19 21:00 01/04/20 12:00 Flush - Normal Saline IVF 10 ml Q12HR MIKE Administration - Exam Eye: PERRL ENT: normocephalic atraumatic Neck: supple Respiratory: CTAB, normal chest expansion Gastrointestinal: soft, normal bowel sounds Neurological: no focal deficits Hosp A/P - Plan (1) Pneumonia Code(s): J18.9 - PNEUMONIA, UNSPECIFIED ORGANISM Status: Acute (2) (3) DM2 (diabetes mellitus, type 2) Status: Chronic (4) GERD (gastroesophageal reflux disease) Code(s): K21.9 - GASTRO-ESOPHAGEAL REFLUX DISEASE WITHOUT ESOPHAGITIS Status: Chronic Qualifiers: (5) HTN (hypertension) Code(s): I10 - ESSENTIAL (PRIMARY) HYPERTENSION Status: Chronic * Acute respiratory failure with hypoxemia, sepsis, due to left sided pneumonia with empyema. * Necrotizing PNA * parapenumonic effusion * s/p post decortication * Continue ctx/clinda and flagyl * - cultures to date are negative * ESRD on PD- stable * Continue to encourage oral intake * HTN - blood pressure is stable * DM- is stable * Stable for transfer out of the ICU * ESRD (end stage renal disease) on dialysis -peritoneal dialysis -Cr keep trending up - she is getting PD? probable dementia Memory impairment, in addition to above-----------------> resolved. --tsh, b12 nl range Placed PT consult ambulate abx changed to CTX/clinda and flagyl -waiting for rehab bed.
--- NOTE | 2020-01-04 15:15 | PRG ---
DATE OF SERVICE: 01/04/2020 SUBJECTIVE: The patient is feeling a little better. No chest pain. Coughing a little bit. Mild dyspnea. No abdominal pain. OBJECTIVE: VITAL SIGNS: She has been afebrile, awake, alert, and oriented. LUNGS: With diminished breath sounds in left base. ABDOMEN: Soft, not distended. EXTREMITIES: Moves extremities equally. LABORATORY DATA: White cell count is down to 9.8, hemoglobin 8.9, platelets 353, 72% neutrophils. Creatinine 10.16. Microbiology with negative pleural fluid culture, final results. ASSESSMENT AND DISCUSSION: Cardiomyopathy, arteriovenous malformations with gastrointestinal bleed, type 2 diabetes, end-stage renal disease, on peritoneal dialysis, appears to be a necrotizing pneumonia with parapneumonic effusion with loculation, status post decortication. The patient seems to be improving steadily, decrease in white cell count, has not had much fever, but she has end-stage renal disease that may explain it. We do not have a microbiology identification of the pathogen here and will assume it is of one of the community-acquired pathogens, and she is currently on Rocephin, eventually can be transitioned to oral Omnicef for about approximately 5 days or doxycycline. Job ID: [id number]
--- NOTE | 2020-01-04 16:41 | PRG ---
DATE OF SERVICE: 01/04/2020 SUBJECTIVE: Ms. Canales is doing well. OBJECTIVE: VITAL SIGNS: She is afebrile, heart rate 83, respiratory rate is 18, oximetry is 96% on 2 L, and blood pressure 114/61. LUNGS: Unchanged. HEART: Unchanged. ABDOMEN: Unchanged. There was no new positive microbiology. LABORATORY DATA: White count 9.8, hemoglobin 8.9, and platelets 353. Electrolytes normal. BUN 58, creatinine 10.16. IMPRESSION: 1. End-stage renal disease, on peritoneal dialysis. 2. Pneumonia likely with lung abscess and parapneumonic effusion that is sterile, status post decortication, clinically stable. I was following up her stay in the Critical Care Unit. She appears to be doing reasonably well. We will be happy to see her in 6 to 8 weeks and repeat her chest x-ray to document a new baseline for her. Job ID: [id number]
[2020-01-04] MEDS: Ondansetron PF 4 MG/2 ML Vial IVP PRN (20:22)
[2020-01-04] MEDS: Atorvastatin Calcium 20 MG TAB PO SCH (20:33)
[2020-01-05] MEDS: Levothyroxine Sodium 100 MCG TAB PO SCH (05:01)
[2020-01-05] MEDS: metroNIDAZOLE 250 MG in Admixture Fee 2 EACH IVPB SCH ×3 (05:01→22:39)
[2020-01-05] MEDS: Ondansetron PF 4 MG/2 ML Vial IVP PRN (05:05)
[2020-01-05] MEDS ORDERED: Dextrose 5% in Water 1,000 ML IV PRN (06:14)
[2020-01-05] MEDS ORDERED: Dextrose 50% Abboject 50 ML SYRINGE IVP PRN (06:14)
[2020-01-05] MEDS ORDERED: HumaLOG 300 UNITS/3 ML VIAL SC PRN (06:14)
[2020-01-05 07:18] LABS: #Eosinphils 0.3 thou/uL (0.0-0.7); #Lymphocytes 1.3 thou/uL (1.20-3.40); #Neutrophils 6.4 thou/uL (1.40-6.50); %Basophils 0.5 % (0.0-1.0); %Eosinophils 3.6 % (0.0-10.0); %Lymphocytes 13.9 % (21.0-51.0); %Monocytes 11.1 % (0.0-10.0); Hemoglobin 8.7 g/dL (12.0-16.0); Mean Corpuscular HGB CONC 32.2 g/dL (32.0-36.0); Mean Corpuscular Hemoglobin 31.2 pg (27.0-31.0); Mean Corpuscular Volume 96.9 fL (78.0-98.0); Mean Platelet Volume 7.6 fL (7.4-10.4); Platelet Count 346 thou/uL (130-400); Red Blood Cell (RBC) Count 2.79 mill/uL (4.20-5.40)
[2020-01-05 07:36] LABS: Anion Gap 19 mmol/L (10-20); BUN (Urea Nitrogen) 57 mg/dL (9.8-20.1); Calc. Creatinine Clearance 6 mL/min (70-130); Calcium 8.6 mg/dL (7.8-10.44); Carbon Dioxide 23 mmol/L (23-31); Chloride 98 mmol/L (98-107); Estimated GFR-MDRD 4; Glucose 158 mg/dL (83-110); Potassium 3.7 mmol/L (3.5-5.1); Sodium 136 mmol/L (136-145)
[2020-01-05] MEDS: NIFEdipine XL 60 MG TAB PO SCH (08:32)
[2020-01-05] MEDS: Gabapentin 300 MG CAP PO SCH ×2 (08:32→20:36)
[2020-01-05] MEDS: Isosorbide Mononitrate (ER) 30 MG TAB PO SCH (08:32)
[2020-01-05] MEDS: buPROPion 75 MG TAB PO SCH ×2 (08:32→20:41)
[2020-01-05] MEDS: Losartan 25 MG TAB PO SCH (08:32)
[2020-01-05] MEDS: Saccharomyces boulardii 250 MG CAP PO SCH (08:32)
[2020-01-05] MEDS: Amlodipine 5 MG TAB PO SCH (08:33)
[2020-01-05] MEDS: Carvedilol 6.25 MG TAB PO SCH ×2 (08:33→20:35)
[2020-01-05] MEDS: cloNIDine 0.1 MG TAB PO SCH ×2 (08:34→20:36)
[2020-01-05] MEDS: Citalopram 20 MG TAB PO SCH (08:34)
[2020-01-05] MEDS: Fish Oil 1,000 MG CAP PO SCH ×2 (08:34→20:36)
[2020-01-05] MEDS: hydrALAZINE 25 MG TAB PO SCH ×4 (08:34→20:37)
[2020-01-05] MEDS: Ferrous Sulfate 325 MG TAB PO SCH ×2 (08:34→20:36)
[2020-01-05] MEDS: Multivit, Therapeutic 1 TAB PO SCH (08:34)
[2020-01-05] MEDS: Enoxaparin Sodium 30 MG/0.3 ML SYRINGE SC SCH (08:35)
[2020-01-05] MEDS: Insulin Glargine 15 UNITS in Pre-Filled Syringe 1 EACH SC SCH ×2 (08:39→20:37)
--- NOTE | 2020-01-05 10:32 | PRG ---
DATE OF SERVICE: 01/05/2020 SERVICE: Renal Medicine. SUBJECTIVE: Ms. Canales is a 74-year-old white female with ESRD and followed by the Renal Service for her maintenance peritoneal dialysis. She is tolerating her current peritoneal dialysis. In the last few days, I have increased her fill volume to 2.5 L. In addition, this patient was initially admitted for pneumonia. The pneumonia was complicated by parapneumonic effusion. She has undergone pulmonary decortication. She is doing better. White count is going down. No new complaints today except for feeling tired. Please note, I initiated Epogen with her for her anemia yesterday. No complaints of chest pain or shortness of breath. OBJECTIVE: VITAL SIGNS: Blood pressure 133/69, heart rate 86, respiratory rate 16, temperature 98, and pulse ox 97%. GENERAL: Awake, alert, comfortable, not in distress. Obese. SKIN: Adequate turgor. HEENT: She has slightly pale conjunctivae. Anicteric sclerae. NECK: No neck mass. No carotid bruits. No JVD. CHEST: No deformities. LUNGS: Decreased breath sounds. HEART: Normal sinus rhythm. No murmur. No gallops or rubs. ABDOMEN: Globular, soft, nontender. No masses. Positive for PD catheter. EXTREMITIES: No edema. No deformities. MEDICATIONS: Of January 05, 2020, reviewed. LABORATORY DATA: Laboratories of January 05, 2020; white count 9, hemoglobin 8.7. January 05, 2020, base met was reviewed. ASSESSMENT AND PLAN: 1. End-stage renal disease, stable. We will continue current peritoneal dialysis regimen. No changes to be made. Continue 2.5% fill volume. No changes to be made. Case discussed with the PD nursing staff. 2. Pneumonia/necrotizing pneumonia - the patient is status post pulmonary decortication and chest tube placement, doing well. White count is going down on IV antibiotics. ID following. 3. Anemia. The patient has been initiated on Epogen. Agree with current management. Awaiting rehab placement. Job ID: [id number]
[2020-01-05] MEDS: HumaLOG 300 UNITS/3 ML VIAL SC PRN (11:51)
[2020-01-05] MEDS: cefTRIAXone\\ROCEPHIN 2 GM in Sodium Chloride 0.9% 100 ML IVPB SCH (11:51)
--- NOTE | 2020-01-05 14:15 | PDOC.HOSPP ---
- Subjective Encounter Date: 01/05/20 Encounter Time: 12:20 Subjective: pt sleeping - denies c/o on awakening. talk to CM reg.. rehab timing. - Objective Vital Signs & Weight: Vital Signs (12 hours) Temp Pulse Resp BP BP BP Pulse Ox 01/05/20 11:15 98.2 F 87 18 120/75 97 01/05/20 10:35 85 16 95 01/05/20 08:33 134/69 01/05/20 08:32 86 01/05/20 08:25 97 01/05/20 08:00 98.0 F 86 16 133/69 97 01/05/20 07:05 86 14 97 Weight Admit Weight 169 lb 1.6 oz Weight 171 lb 11.841 oz Most Recent Monitor Data Heart Rate from ECG 73 NIBP 118/63 NIBP BP-Mean 81 Respiration from ECG 22 SpO2 98 I&O: 01/04/20 01/05/20 01/06/20 06:59 06:59 06:59 Intake Total 510 750 Output Total 1 Balance 510 749 Result Diagrams: 01/05/20 06:45 01/05/20 06:45 Additional Labs: Accuchecks 01/05/20 01/05/20 01/04/20 11:22 05:14 20:35 POC Glucose 270 H 239 H 156 H 01/04/20 16:10 POC Glucose 143 H Hospitalist ROS - Medication Medications: Active Medications Generic Name Dose Route Start Last Admin Trade Name Freq PRN Reason Stop Dose Admin Acetaminophen 650 mg 12/28/19 12:37 12/29/19 23:55 Tylenol PO 650 mg Q4H PRN Administration Fever > 38.5C, LOVE or mild pain Albuterol/Ipratropium 3 ml 12/27/19 18:30 01/05/20 14:09 Duoneb NEB Not Given [id number] MIKE Amlodipine Besylate 5 mg 12/25/19 09:00 01/05/20 08:33 Norvasc PO 5 mg DAILY MIKE Administration Atorvastatin Calcium 20 mg 12/24/19 21:00 01/04/20 20:33 Lipitor PO 20 mg HS MIKE Administration Bupropion HCl 75 mg 12/24/19 21:00 01/05/20 08:32 Wellbutrin PO 75 mg BID MIKE Administration Carvedilol 12.5 mg 12/24/19 21:00 01/05/20 08:33 Coreg PO 12.5 mg BID MIKE Administration Citalopram Hydrobromide 40 mg 12/29/19 09:00 01/05/20 08:34 Celexa PO 40 mg DAILY MIKE Administration Clonidine 0.1 mg 12/24/19 21:00 01/05/20 08:34 Catapres PO 0.1 mg BID MIKE Administration Enoxaparin Sodium 30 mg 12/29/19 09:00 01/05/20 08:35 Lovenox SC 30 mg 0900 MIKE Administration Epoetin Jeff-epbx 7,500 unit 01/04/20 08:30 01/04/20 09:43 Retacrit SC 7,500 unit Q7D MIKE Administration Ferrous Sulfate 325 mg 12/24/19 21:00 01/05/20 08:34 Feosol PO 325 mg BID MIKE Administration Fish Oil 1,000 mg 12/24/19 21:00 01/05/20 08:34 Fish Oil PO 1,000 mg BID MIKE Administration Gabapentin 600 mg 12/24/19 21:00 01/05/20 08:32 Neurontin PO 600 mg BID MIKE Administration Hydralazine HCl 25 mg 12/24/19 17:00 01/05/20 13:03 Apresoline PO 25 mg QID MIKE Administration Insulin Glargine 15 units/ 0.15 mls @ 0 mls/hr 12/25/19 09:00 01/05/20 08:39 Miscellaneous Medication SC 0.15 mls QAM MIKE Administration Insulin Glargine 15 units/ 0.15 mls @ 0 mls/hr 12/24/19 21:00 01/04/20 20:41 Miscellaneous Medication SC 0.15 mls HS MIKE Administration Ceftriaxone Sodium 2 gm/ 100 mls @ 200 mls/hr 01/02/20 12:00 01/05/20 11:51 Sodium Chloride IVPB 100 mls 1200 MIKE Administration Metronidazole 250 mg/ 50 mls @ 100 mls/hr 01/02/20 14:00 01/05/20 05:01 Miscellaneous Medication IVPB 50 mls Q8HR MIKE Administration Insulin Human Lispro 0 units 01/05/20 06:14 01/05/20 11:51 Humalog SC 6 unit .MODERATE SLIDING SC PRN Administration MODERATE SLIDING SCALE Protocol Isosorbide Mononitrate 30 mg 12/25/19 09:00 01/05/20 08:32 Imdur Er PO 30 mg DAILY MKIE Administration Levothyroxine Sodium 100 mcg 12/24/19 06:00 01/05/20 05:01 Synthroid PO 100 mcg 0600 MIKE Administration Losartan Potassium 25 mg 12/25/19 09:00 01/05/20 08:32 Cozaar PO 25 mg DAILY MIKE Administration Multivitamins 1 tab 12/25/19 09:00 01/05/20 08:34 Theragran PO 1 tab DAILY MIKE Administration Nifedipine 60 mg 12/25/19 09:00 01/05/20 08:32 Procardia Xl PO 60 mg DAILY MIKE Administration Ondansetron HCl 4 mg 12/28/19 12:37 01/05/20 05:05 Zofran IVP 4 mg Q6H PRN Administration Nausea/Vomiting Pantoprazole Sodium 40 mg 12/25/19 09:00 01/05/20 08:33 Protonix PO 40 mg DAILY MIKE Administration Saccharomyces Boulardii 250 mg 12/27/19 09:00 01/05/20 08:32 Florastor PO 250 mg DAILY MIKE Administration Sodium Chloride 10 ml 12/28/19 21:00 01/05/20 09:16 Flush - Normal Saline IVF Not Given Q12HR MIKE - Exam General Appearance: NAD, awake alert Eye: PERRL, anicteric sclera ENT: normocephalic atraumatic Neck: supple Heart: RRR Respiratory: CTAB, normal chest expansion Gastrointestinal: soft, normal bowel sounds Neurological: cranial nerve grossly intact, no focal deficits Psychiatric: normal affect, A&O x 3 Hosp A/P - Plan (1) Pneumonia Code(s): J18.9 - PNEUMONIA, UNSPECIFIED ORGANISM Status: Acute (2) (3) DM2 (diabetes mellitus, type 2) Status: Chronic (4) GERD (gastroesophageal reflux disease) Code(s): K21.9 - GASTRO-ESOPHAGEAL REFLUX DISEASE WITHOUT ESOPHAGITIS Status: Chronic Qualifiers: (5) HTN (hypertension) Code(s): I10 - ESSENTIAL (PRIMARY) HYPERTENSION Status: Chronic * Acute respiratory failure with hypoxemia, sepsis, due to left sided pneumonia with empyema. * Necrotizing PNA * parapenumonic effusion * s/p post decortication * Continue ctx/clinda and flagyl * - cultures to date are negative * ESRD on PD- stable * Continue to encourage oral intake * HTN - blood pressure is stable * DM- is stable * Stable for transfer out of the ICU * ESRD (end stage renal disease) on dialysis -peritoneal dialysis -Cr keep trending up - she is getting PD? probable dementia Memory impairment, in addition to above-----------------> resolved. --tsh, b12 nl range Placed PT consult ambulate abx changed to CTX/clinda and flagyl -waiting for rehab bed. --plan to switch abx to doxycylline tomorrow.
--- NOTE | 2020-01-05 17:07 | RAD ---
Exam: Chest one view HISTORY:Thoracotomy, change in patient Baseline Comparison: 12/29/2019 FINDINGS: Cardiac silhouette: Normal Aorta: Unremarkable Pulmonary vessels: Normal Costophrenic angles: Clear LUNGS: Scattered interstitial opacities with more focal alveolar opacification left midlung. Pneumothorax: None Osseous abnormalities: None IMPRESSION: Lung parenchymal opacities as detailed above. Possibility of left lung pneumonia is raise d.
[2020-01-05 17:52] LABS: Lactic Acid 0.6 mmol/L (0.5-2.2)
[2020-01-05] MEDS: Atorvastatin Calcium 20 MG TAB PO SCH (20:35)
[2020-01-06] MEDS: Levothyroxine Sodium 100 MCG TAB PO SCH (05:14)
[2020-01-06] MEDS: metroNIDAZOLE 250 MG in Admixture Fee 2 EACH IVPB SCH ×2 (05:14→14:50)
[2020-01-06] MEDS: Acetaminophen 325 MG TAB PO PRN (05:16)
[2020-01-06] MEDS: HumaLOG 300 UNITS/3 ML VIAL SC PRN ×2 (05:22→10:56)
[2020-01-06] MEDS: Enoxaparin Sodium 30 MG/0.3 ML SYRINGE SC SCH (07:47)
[2020-01-06] MEDS: Fish Oil 1,000 MG CAP PO SCH ×2 (07:48→22:17)
[2020-01-06] MEDS: Carvedilol 6.25 MG TAB PO SCH ×2 (07:48→22:17)
[2020-01-06] MEDS: Losartan 25 MG TAB PO SCH (07:48)
[2020-01-06] MEDS: Citalopram 20 MG TAB PO SCH (07:48)
[2020-01-06] MEDS: cloNIDine 0.1 MG TAB PO SCH (07:48)
[2020-01-06] MEDS: Isosorbide Mononitrate (ER) 30 MG TAB PO SCH (07:48)
[2020-01-06] MEDS: NIFEdipine XL 60 MG TAB PO SCH (07:49)
[2020-01-06] MEDS: Ferrous Sulfate 325 MG TAB PO SCH ×2 (07:49→22:17)
[2020-01-06] MEDS: hydrALAZINE 25 MG TAB PO SCH ×4 (07:49→22:18)
[2020-01-06] MEDS: Gabapentin 300 MG CAP PO SCH (07:49)
[2020-01-06] MEDS: Multivit, Therapeutic 1 TAB PO SCH (07:49)
[2020-01-06] MEDS: Amlodipine 5 MG TAB PO SCH (07:50)
[2020-01-06] MEDS: buPROPion 75 MG TAB PO SCH ×2 (07:50→22:25)
[2020-01-06] MEDS: Saccharomyces boulardii 250 MG CAP PO SCH (07:50)
[2020-01-06] MEDS: Insulin Glargine 15 UNITS in Pre-Filled Syringe 1 EACH SC SCH ×2 (07:50→22:24)
[2020-01-06 08:45] LABS: #Eosinphils 0.3 thou/uL (0.0-0.7); #Lymphocytes 1.1 thou/uL (1.20-3.40); #Neutrophils 6.7 thou/uL (1.40-6.50); %Basophils 0.4 % (0.0-1.0); %Lymphocytes 11.8 % (21.0-51.0); %Monocytes 11.1 % (0.0-10.0); %Neutrophils 73.7 % (42.0-75.0); Hemoglobin 8.9 g/dL (12.0-16.0); Mean Corpuscular HGB CONC 31.6 g/dL (32.0-36.0); Mean Corpuscular Hemoglobin 30.8 pg (27.0-31.0); Mean Corpuscular Volume 97.4 fL (78.0-98.0); Mean Platelet Volume 7.6 fL (7.4-10.4); Platelet Count 341 thou/uL (130-400); RBC Distribution Width 13.3 % (11.5-14.5); Red Blood Cell (RBC) Count 2.89 mill/uL (4.20-5.40); White Blood Cell (WBC) Count 9.1 thou/uL (4.8-10.8)
[2020-01-06 08:58] LABS: Anion Gap 21 mmol/L (10-20); BUN (Urea Nitrogen) 58 mg/dL (9.8-20.1); Calc. Creatinine Clearance 6 mL/min (70-130); Calcium 8.8 mg/dL (7.8-10.44); Carbon Dioxide 23 mmol/L (23-31); Chloride 97 mmol/L (98-107); Estimated GFR-MDRD 3; Glucose 267 mg/dL (83-110); Potassium 3.7 mmol/L (3.5-5.1); Sodium 137 mmol/L (136-145)
--- NOTE | 2020-01-06 09:56 | PRG ---
DATE OF SERVICE: 01/06/2020 SERVICE: Renal Medicine. SUBJECTIVE: Ms. Canales is a 74-year-old white female, initially admitted for acute respiratory failure from pneumonia. Doing well. She was empirically treated with IV antibiotics. She was ruled out for COVID. We are following up for her peritoneal dialysis. She is doing well with the peritoneal dialysis. Tolerating the ultrafiltration. No new complaints. Awaiting rehab placement. OBJECTIVE: VITAL SIGNS: Blood pressure is 122/66, heart rate 90, respiratory rate 12, O2 saturation 96%. GENERAL: Awake, alert, comfortable, not in overt distress. SKIN: Adequate turgor. HEENT: She has pinkish, slightly pale conjunctivae. Anicteric sclerae. NECK: No neck mass. No carotid bruits. No JVD. CHEST: No deformities. LUNGS: Decreased breath sounds. HEART: Normal sinus rhythm. No murmurs, gallops, or rubs. ABDOMEN: Globular, soft, nontender. No masses. EXTREMITIES: No edema. No deformities. MEDICATIONS: On January 06, 2020, were reviewed. LABORATORY DATA: On January 06, 2020; white count 9.1, hemoglobin 8.9. Chemistries on January 06, 2020; potassium 3.7, BUN 58, creatinine 10.81, sodium 137, calcium 8.8. ASSESSMENT AND PLAN: 1. End-stage renal disease, stable. Tolerating current continuous cyclic peritoneal dialysis regimen. No changes to be made with the current peritoneal dialysis. The patient is also clinically asymptomatic from her pneumonia. 2. Anemia. Continuing weekly Epogen. 3. Overall, agree with current management. Job ID: [id number]
[2020-01-06] MEDS: cefTRIAXone\\ROCEPHIN 2 GM in Sodium Chloride 0.9% 100 ML IVPB SCH (11:25)
--- NOTE | 2020-01-06 14:02 | PDOC.HOSPP ---
- Subjective Encounter Date: 01/06/20 Encounter Time: 11:50 Subjective: her mentation is ok today, discuseed dc plan of waiting for [facility] rehab bed availability, had BM this morning Cr still keep going up. - Objective Vital Signs & Weight: Vital Signs (12 hours) Temp Pulse Resp BP BP Pulse Ox 01/06/20 13:17 80 01/06/20 10:01 80 16 96 01/06/20 08:00 96 01/06/20 07:50 90 01/06/20 07:49 90 01/06/20 07:48 122/66 01/06/20 07:04 97.4 F L 90 16 146/72 H 100 01/06/20 07:01 88 18 99 01/06/20 04:00 84 Weight Admit Weight 169 lb 1.6 oz Weight 176 lb 12.972 oz Most Recent Monitor Data Heart Rate from ECG 73 NIBP 118/63 NIBP BP-Mean 81 Respiration from ECG 22 SpO2 98 I&O: 01/05/20 01/06/20 01/07/20 06:59 06:59 06:59 Intake Total 750 1000 240 Output Total 1 0 Balance 749 1000 240 Result Diagrams: 01/06/20 08:19 01/06/20 08:19 Additional Labs: Accuchecks 01/06/20 01/06/20 01/05/20 10:58 05:25 23:48 POC Glucose 342 H 296 H 141 H 01/05/20 01/05/20 01/05/20 20:18 19:37 19:13 POC Glucose 157 H 192 H 60 L 01/05/20 16:04 POC Glucose 83 Hospitalist ROS - Medication Medications: Active Medications Generic Name Dose Route Start Last Admin Trade Name Freq PRN Reason Stop Dose Admin Acetaminophen 650 mg 12/28/19 12:37 01/06/20 05:16 Tylenol PO 650 mg Q4H PRN Administration Fever > 38.5C, LOVE or mild pain Albuterol/Ipratropium 3 ml 12/27/19 18:30 01/06/20 10:01 Duoneb NEB 3 ml [id number] MIKE Administration Amlodipine Besylate 5 mg 12/25/19 09:00 01/06/20 07:50 Norvasc PO 5 mg DAILY MIKE Administration Atorvastatin Calcium 20 mg 12/24/19 21:00 01/05/20 20:35 Lipitor PO 20 mg HS MIKE Administration Bupropion HCl 75 mg 12/24/19 21:00 01/06/20 07:50 Wellbutrin PO 75 mg BID MIKE Administration Carvedilol 12.5 mg 12/24/19 21:00 01/06/20 07:48 Coreg PO 12.5 mg BID MIKE Administration Citalopram Hydrobromide 40 mg 12/29/19 09:00 01/06/20 07:48 Celexa PO 40 mg DAILY MIKE Administration Clonidine 0.1 mg 12/24/19 21:00 01/06/20 07:48 Catapres PO 0.1 mg BID MIKE Administration Dextrose/Water 25 gm 12/24/19 03:56 01/05/20 19:16 Dextrose 50% SLOW IVP 25 gm PRN PRN Administration Hypoglycemia Enoxaparin Sodium 30 mg 12/29/19 09:00 01/06/20 07:47 Lovenox SC 30 mg 0900 MIKE Administration Epoetin Jeff-epbx 7,500 unit 01/04/20 08:30 01/04/20 09:43 Retacrit SC 7,500 unit Q7D MIKE Administration Ferrous Sulfate 325 mg 12/24/19 21:00 01/06/20 07:49 Feosol PO 325 mg BID MIKE Administration Fish Oil 1,000 mg 12/24/19 21:00 01/06/20 07:48 Fish Oil PO 1,000 mg BID MIKE Administration Gabapentin 600 mg 12/24/19 21:00 01/06/20 07:49 Neurontin PO 600 mg BID MIKE Administration Hydralazine HCl 25 mg 12/24/19 17:00 01/06/20 13:17 Apresoline PO 25 mg QID MIKE Administration Insulin Glargine 15 units/ 0.15 mls @ 0 mls/hr 12/25/19 09:00 01/06/20 07:50 Miscellaneous Medication SC 0.15 mls QAM MIKE Administration Insulin Glargine 15 units/ 0.15 mls @ 0 mls/hr 12/24/19 21:00 01/05/20 20:37 Miscellaneous Medication SC Not Given HS MIKE Ceftriaxone Sodium 2 gm/ 100 mls @ 200 mls/hr 01/02/20 12:00 01/06/20 11:25 Sodium Chloride IVPB 100 mls 1200 MIKE Administration Metronidazole 250 mg/ 50 mls @ 100 mls/hr 01/02/20 14:00 01/06/20 05:14 Miscellaneous Medication IVPB 50 mls Q8HR MIKE Administration Insulin Human Lispro 0 units 01/05/20 06:14 01/06/20 10:56 Humalog SC 8 unit .MODERATE SLIDING SC PRN Administration MODERATE SLIDING SCALE Protocol Isosorbide Mononitrate 30 mg 12/25/19 09:00 01/06/20 07:48 Imdur Er PO 30 mg DAILY MIKE Administration Levothyroxine Sodium 100 mcg 12/24/19 06:00 01/06/20 05:14 Synthroid PO 100 mcg 0600 MIKE Administration Losartan Potassium 25 mg 12/25/19 09:00 01/06/20 07:48 Cozaar PO 25 mg DAILY MIKE Administration Multivitamins 1 tab 12/25/19 09:00 01/06/20 07:49 Theragran PO 1 tab DAILY MIKE Administration Nifedipine 60 mg 12/25/19 09:00 01/06/20 07:49 Procardia Xl PO 60 mg DAILY MIKE Administration Ondansetron HCl 4 mg 12/28/19 12:37 01/05/20 05:05 Zofran IVP 4 mg Q6H PRN Administration Nausea/Vomiting Pantoprazole Sodium 40 mg 12/25/19 09:00 01/06/20 07:49 Protonix PO 40 mg DAILY MIKE Administration Saccharomyces Boulardii 250 mg 12/27/19 09:00 01/06/20 07:50 Florastor PO 250 mg DAILY MIKE Administration Sodium Chloride 10 ml 12/28/19 21:00 01/06/20 07:57 Flush - Normal Saline IVF 10 ml Q12HR MIKE Administration - Exam General Appearance: NAD, awake alert Eye: PERRL ENT: dry oral mucosa Neck: supple Heart: RRR Respiratory: CTAB Gastrointestinal: soft, normal bowel sounds Neurological: no focal deficits Hosp A/P - Plan (1) Pneumonia Code(s): J18.9 - PNEUMONIA, UNSPECIFIED ORGANISM Status: Acute (2) (3) DM2 (diabetes mellitus, type 2) Status: Chronic (4) GERD (gastroesophageal reflux disease) Code(s): K21.9 - GASTRO-ESOPHAGEAL REFLUX DISEASE WITHOUT ESOPHAGITIS Status: Chronic Qualifiers: (5) HTN (hypertension) Code(s): I10 - ESSENTIAL (PRIMARY) HYPERTENSION Status: Chronic * Acute respiratory failure with hypoxemia, sepsis, due to left sided pneumonia with empyema. * Necrotizing PNA * parapenumonic effusion * s/p post decortication * Continue ctx/clinda and flagyl * - cultures to date are negative * ESRD on PD- stable * Continue to encourage oral intake * HTN - blood pressure is stable * DM- is stable * Stable for transfer out of the ICU * ESRD (end stage renal disease) on dialysis -peritoneal dialysis -Cr keep trending up---------------> could cause labile mentation - she is getting PD Uremic encephalopathy not be ruled out completely as her mentation some days better than others. --i am also concerned about cr keep trending up - I talk to DR. Howell few days ago and brought this to his attention. --tsh, b12 nl range probable dementia Memory impairment, in addition to above? Placed PT consult ambulate abx changed to CTX/clinda and flagyl--------------> to doxycycline on -waiting for rehab bed.
[2020-01-06] MEDS ORDERED: Doxycycline 100 MG CAP PO SCH (21:00)
[2020-01-06] MEDS: Atorvastatin Calcium 20 MG TAB PO SCH (22:17)
[2020-01-06] MEDS: Cephalexin 250 MG CAP PO SCH (22:17)
[2020-01-06] MEDS: Gabapentin 100 MG CAP PO SCH (22:18)
[2020-01-07] MEDS: Levothyroxine Sodium 100 MCG TAB PO SCH (05:29)
[2020-01-07] MEDS: HumaLOG 300 UNITS/3 ML VIAL SC PRN ×2 (05:32→11:31)
[2020-01-07 06:33] LABS: #Eosinphils 0.3 thou/uL (0.0-0.7); #Lymphocytes 1.1 thou/uL (1.20-3.40); #Monocytes 0.7 thou/uL (0.11-0.59); #Neutrophils 4.9 thou/uL (1.40-6.50); %Basophils 0.5 % (0.0-1.0); %Eosinophils 3.9 % (0.0-10.0); %Lymphocytes 15.6 % (21.0-51.0); %Neutrophils 70.1 % (42.0-75.0); Hemoglobin 8.6 g/dL (12.0-16.0); Mean Corpuscular HGB CONC 31.6 g/dL (32.0-36.0); Mean Corpuscular Hemoglobin 30.8 pg (27.0-31.0); Mean Corpuscular Volume 97.6 fL (78.0-98.0); Mean Platelet Volume 7.6 fL (7.4-10.4); Platelet Count 336 thou/uL (130-400); RBC Distribution Width 13.5 % (11.5-14.5)
[2020-01-07] MEDS: Ferrous Sulfate 325 MG TAB PO SCH ×2 (08:06→21:21)
[2020-01-07] MEDS: Amlodipine 5 MG TAB PO SCH (08:07)
[2020-01-07] MEDS: Isosorbide Mononitrate (ER) 30 MG TAB PO SCH (08:07)
[2020-01-07] MEDS: NIFEdipine XL 60 MG TAB PO SCH (08:07)
[2020-01-07] MEDS: Cephalexin 250 MG CAP PO SCH ×2 (08:07→21:21)
[2020-01-07] MEDS: Carvedilol 6.25 MG TAB PO SCH ×2 (08:07→21:21)
[2020-01-07] MEDS: Losartan 25 MG TAB PO SCH (08:07)
[2020-01-07] MEDS: Multivit, Therapeutic 1 TAB PO SCH (08:07)
[2020-01-07] MEDS: Citalopram 20 MG TAB PO SCH (08:08)
[2020-01-07] MEDS: hydrALAZINE 25 MG TAB PO SCH ×4 (08:08→21:21)
[2020-01-07] MEDS: Gabapentin 100 MG CAP PO SCH ×2 (08:08→21:22)
[2020-01-07] MEDS: buPROPion 75 MG TAB PO SCH ×2 (08:08→21:20)
[2020-01-07] MEDS: Fish Oil 1,000 MG CAP PO SCH ×2 (08:08→21:21)
[2020-01-07] MEDS: Insulin Glargine 15 UNITS in Pre-Filled Syringe 1 EACH SC SCH ×2 (08:11→21:24)
[2020-01-07] MEDS: Saccharomyces boulardii 250 MG CAP PO SCH (09:05)
--- NOTE | 2020-01-07 10:28 | PRG ---
DATE OF SERVICE: 01/07/2020 SUBJECTIVE: Ms. Canales is a 74-year-old white female with ESRD and being followed by [facility] for maintenance peritoneal dialysis. She tolerated peritoneal dialysis last night and ultrafiltration was also tolerated. She was initially admitted for respiratory failure due to an acute pneumonia. Pneumonia has clinically much improved. She was also ruled out for COVID. No new complaints today. No chest pain or shortness of breath. OBJECTIVE: VITAL SIGNS: Blood pressure 156/71, heart rate 90, and O2 saturation 97% on 2 L. GENERAL: Awake, alert, supine, and obese, not in distress. SKIN: Adequate turgor. HEENT: Pinkish conjunctivae. Anicteric sclerae. NECK: No neck mass. No carotid bruits. No JVD. CHEST: No deformities. LUNGS: Clear breath sounds. HEART: Normal sinus rhythm. No murmur. No gallops. No rubs. ABDOMEN: Globular, soft, and nontender. No masses. EXTREMITIES: No edema. No deformities. Positive for PD catheter in the abdomen. MEDICATIONS: Medications of January 07, 2020, reviewed. LABORATORY DATA: Laboratories of January 07, 2020, white count 7 and hemoglobin 8.6. January 06, 2020; potassium 3.7, BUN 58, and creatinine 10.81. January 07, 2020, glucose 285. ASSESSMENT AND PLAN: 1. End-stage renal disease - stable. We will continue current continuous cyclic peritoneal dialysis regimen. Previous adjustments have been made with her fill volume. Continue current continuous cyclic peritoneal dialysis. Tolerating said treatment. 2. Anemia. The patient has been started on Epogen at 7500 units subcu q.7 days. 3. Status post pneumonia with complications of empyema - status post pulmonary decortication - currently on p.o. antibiotics, doing well. We are awaiting for rehab placement with this patient. Job ID: [id number]
--- NOTE | 2020-01-07 13:31 | PDOC.HOSPP ---
- Subjective Encounter Date: 01/07/20 Encounter Time: 10:30 Subjective: Mrs. Canales was seen this morning as a follow up for pneumonia, s/p decortication, DM2, and ESRD. She states she is still sore but overall feels better with her breathing. She states she feels too weak for rehab at this time. Denies any overnight events or concerns other than her generalized weakness. - Objective Vital Signs & Weight: Vital Signs (12 hours) Temp Pulse Resp BP BP Pulse Ox 01/07/20 12:57 83 01/07/20 10:46 83 16 100 01/07/20 08:08 90 01/07/20 08:07 90 156/71 H 01/07/20 08:00 97 01/07/20 07:33 98.4 F 90 16 149/65 H 97 01/07/20 06:36 89 20 99 01/07/20 02:14 16 Weight Admit Weight 169 lb 1.6 oz Weight 176 lb 12.972 oz Most Recent Monitor Data Heart Rate from ECG 73 NIBP 118/63 NIBP BP-Mean 81 Respiration from ECG 22 SpO2 98 I&O: 01/06/20 01/07/20 01/08/20 06:59 06:59 06:59 Intake Total 1000 480 240 Output Total 0 Balance 1000 480 240 Result Diagrams: 01/07/20 06:02 01/06/20 08:19 Additional Labs: Accuchecks 01/07/20 01/07/20 01/06/20 11:13 05:36 19:39 POC Glucose 389 H 285 H 244 H 01/06/20 16:09 POC Glucose 193 H Hospitalist ROS - Medication Medications: Active Medications Generic Name Dose Route Start Last Admin Trade Name Freq PRN Reason Stop Dose Admin Acetaminophen 650 mg 12/28/19 12:37 01/06/20 05:16 Tylenol PO 650 mg Q4H PRN Administration Fever > 38.5C, LOVE or mild pain Albuterol/Ipratropium 3 ml 12/27/19 18:30 01/07/20 10:46 Duoneb NEB 3 ml [id number] MIKE Administration Amlodipine Besylate 5 mg 12/25/19 09:00 01/07/20 08:07 Norvasc PO 5 mg DAILY MIKE Administration Atorvastatin Calcium 20 mg 12/24/19 21:00 01/06/20 22:17 Lipitor PO 20 mg HS MIKE Administration Bupropion HCl 75 mg 12/24/19 21:00 01/07/20 08:08 Wellbutrin PO 75 mg BID MIKE Administration Carvedilol 12.5 mg 12/24/19 21:00 01/07/20 08:07 Coreg PO 12.5 mg BID MIKE Administration Cephalexin 250 mg 01/06/20 21:00 01/07/20 08:07 Keflex PO 250 mg BID MIKE Administration Citalopram Hydrobromide 40 mg 12/29/19 09:00 01/07/20 08:08 Celexa PO 40 mg DAILY MIKE Administration Dextrose/Water 25 gm 12/24/19 03:56 01/05/20 19:16 Dextrose 50% SLOW IVP 25 gm PRN PRN Administration Hypoglycemia Epoetin Jeff-epbx 7,500 unit 01/04/20 08:30 01/04/20 09:43 Retacrit SC 7,500 unit Q7D MIKE Administration Ferrous Sulfate 325 mg 12/24/19 21:00 01/07/20 08:06 Feosol PO 325 mg BID MIKE Administration Fish Oil 1,000 mg 12/24/19 21:00 01/07/20 08:08 Fish Oil PO 1,000 mg BID MIKE Administration Gabapentin 100 mg 01/06/20 21:00 01/07/20 08:08 Neurontin PO 100 mg BID MIKE Administration Hydralazine HCl 25 mg 12/24/19 17:00 01/07/20 12:57 Apresoline PO 25 mg QID MIKE Administration Insulin Glargine 15 units/ 0.15 mls @ 0 mls/hr 12/25/19 09:00 01/07/20 08:11 Miscellaneous Medication SC 0.15 mls QAM MIKE Administration Insulin Glargine 15 units/ 0.15 mls @ 0 mls/hr 12/24/19 21:00 01/06/20 22:24 Miscellaneous Medication SC 0.15 mls HS MIKE Administration Insulin Human Lispro 0 units 01/05/20 06:14 01/07/20 11:31 Humalog SC 10 unit .MODERATE SLIDING SC PRN Administration MODERATE SLIDING SCALE Protocol Isosorbide Mononitrate 30 mg 12/25/19 09:00 01/07/20 08:07 Imdur Er PO 30 mg DAILY MIKE Administration Levothyroxine Sodium 100 mcg 12/24/19 06:00 01/07/20 05:29 Synthroid PO 100 mcg 0600 MIKE Administration Losartan Potassium 25 mg 12/25/19 09:00 01/07/20 08:07 Cozaar PO 25 mg DAILY MIKE Administration Multivitamins 1 tab 12/25/19 09:00 01/07/20 08:07 Theragran PO 1 tab DAILY MIKE Administration Nifedipine 60 mg 12/25/19 09:00 01/07/20 08:07 Procardia Xl PO 60 mg DAILY MIKE Administration Ondansetron HCl 4 mg 12/28/19 12:37 01/05/20 05:05 Zofran IVP 4 mg Q6H PRN Administration Nausea/Vomiting Pantoprazole Sodium 40 mg 12/25/19 09:00 01/07/20 08:08 Protonix PO 40 mg DAILY MIKE Administration Saccharomyces Boulardii 250 mg 12/27/19 09:00 01/07/20 09:05 Florastor PO 250 mg DAILY MIKE Administration Sodium Chloride 10 ml 12/28/19 21:00 01/07/20 09:05 Flush - Normal Saline IVF Not Given Q12HR MIKE - Exam General Appearance: NAD, awake alert Neck: supple, no JVD, no lymphadenopathy Heart: RRR, no murmur, no gallops, no rubs Respiratory: CTAB, no wheezes, no rales, no ronchi Gastrointestinal: soft, non-tender, non-distended, normal bowel sounds Extremities: no edema Neurological: no focal deficits Hosp A/P (1) Pneumonia Code(s): J18.9 - PNEUMONIA, UNSPECIFIED ORGANISM Status: Acute (2) ESRD (end stage renal disease) on dialysis Code(s): N18.6 - END STAGE RENAL DISEASE; Z99.2 - DEPENDENCE ON RENAL DIALYSIS Status: Chronic (3) DM2 (diabetes mellitus, type 2) Status: Chronic (4) GERD (gastroesophageal reflux disease) Code(s): K21.9 - GASTRO-ESOPHAGEAL REFLUX DISEASE WITHOUT ESOPHAGITIS Status: Chronic Qualifiers: (5) HTN (hypertension) Code(s): I10 - ESSENTIAL (PRIMARY) HYPERTENSION Status: Chronic (6) Constipation Code(s): K59.00 - CONSTIPATION, UNSPECIFIED Status: Resolved - Plan Pneumonia: WBC back to normal level, denies cough at this time, maintaining O2 levels at 98% on 2L upon assessment, continue antibiotics at this time ESRD on PD- creatinine increasing, will continue to monitor, nephrology still following patient at this time HTN- blood pressure under control DM- continue to monitor, hyperglycemic 01/05 and today after having hypoglycemic event 01/04 Awaiting bed at rehab- encouraged pt to continue working with PT to help regain strength
--- NOTE | 2020-01-07 15:49 | PDOC.HOSPP ---
- Subjective Encounter Date: 01/07/20 Encounter Time: 15:48 Subjective: Ms. Canales was seen today in follow-up of respiratory failure due to pneumonia and empyema. She does not have any complaints. She says she is breathing better , and the left anterior chest pain she had is improving. - Objective Vital Signs & Weight: Vital Signs (12 hours) Temp Pulse Resp BP BP Pulse Ox 01/07/20 14:32 101 H 16 95 01/07/20 12:57 83 01/07/20 10:46 83 16 100 01/07/20 08:08 90 01/07/20 08:07 90 156/71 H 01/07/20 08:00 97 01/07/20 07:33 98.4 F 90 16 149/65 H 97 01/07/20 06:36 89 20 99 Weight Admit Weight 169 lb 1.6 oz Weight 176 lb 12.972 oz Most Recent Monitor Data Heart Rate from ECG 73 NIBP 118/63 NIBP BP-Mean 81 Respiration from ECG 22 SpO2 98 I&O: 01/06/20 01/07/20 01/08/20 06:59 06:59 06:59 Intake Total 1000 480 480 Output Total 0 Balance 1000 480 480 Result Diagrams: 01/07/20 06:02 01/06/20 08:19 Additional Labs: Accuchecks 01/07/20 01/07/20 01/06/20 11:13 05:36 19:39 POC Glucose 389 H 285 H 244 H 01/06/20 16:09 POC Glucose 193 H Hospitalist ROS - Medication Medications: Active Medications Generic Name Dose Route Start Last Admin Trade Name Jasenq PRN Reason Stop Dose Admin Acetaminophen 650 mg 12/28/19 12:37 01/06/20 05:16 Tylenol PO 650 mg Q4H PRN Administration Fever > 38.5C, LOVE or mild pain Albuterol/Ipratropium 3 ml 12/27/19 18:30 01/07/20 14:32 Duoneb NEB 3 ml [id number] MIKE Administration Amlodipine Besylate 5 mg 12/25/19 09:00 01/07/20 08:07 Norvasc PO 5 mg DAILY MIKE Administration Atorvastatin Calcium 20 mg 12/24/19 21:00 01/06/20 22:17 Lipitor PO 20 mg HS MIKE Administration Bupropion HCl 75 mg 12/24/19 21:00 01/07/20 08:08 Wellbutrin PO 75 mg BID MIKE Administration Carvedilol 12.5 mg 12/24/19 21:00 01/07/20 08:07 Coreg PO 12.5 mg BID MIKE Administration Cephalexin 250 mg 01/06/20 21:00 01/07/20 08:07 Keflex PO 250 mg BID MIKE Administration Citalopram Hydrobromide 40 mg 12/29/19 09:00 01/07/20 08:08 Celexa PO 40 mg DAILY MIKE Administration Dextrose/Water 25 gm 12/24/19 03:56 01/05/20 19:16 Dextrose 50% SLOW IVP 25 gm PRN PRN Administration Hypoglycemia Epoetin Jeff-epbx 7,500 unit 01/04/20 08:30 01/04/20 09:43 Retacrit SC 7,500 unit Q7D MIKE Administration Ferrous Sulfate 325 mg 12/24/19 21:00 01/07/20 08:06 Feosol PO 325 mg BID MIKE Administration Fish Oil 1,000 mg 12/24/19 21:00 01/07/20 08:08 Fish Oil PO 1,000 mg BID MIKE Administration Gabapentin 100 mg 01/06/20 21:00 01/07/20 08:08 Neurontin PO 100 mg BID MIKE Administration Hydralazine HCl 25 mg 12/24/19 17:00 01/07/20 12:57 Apresoline PO 25 mg QID MIKE Administration Insulin Glargine 15 units/ 0.15 mls @ 0 mls/hr 12/25/19 09:00 01/07/20 08:11 Miscellaneous Medication SC 0.15 mls QAM MIKE Administration Insulin Glargine 15 units/ 0.15 mls @ 0 mls/hr 12/24/19 21:00 01/06/20 22:24 Miscellaneous Medication SC 0.15 mls HS MIKE Administration Insulin Human Lispro 0 units 01/05/20 06:14 01/07/20 11:31 Humalog SC 10 unit .MODERATE SLIDING SC PRN Administration MODERATE SLIDING SCALE Protocol Isosorbide Mononitrate 30 mg 12/25/19 09:00 01/07/20 08:07 Imdur Er PO 30 mg DAILY MIKE Administration Levothyroxine Sodium 100 mcg 12/24/19 06:00 01/07/20 05:29 Synthroid PO 100 mcg 0600 MIKE Administration Losartan Potassium 25 mg 12/25/19 09:00 01/07/20 08:07 Cozaar PO 25 mg DAILY MIKE Administration Multivitamins 1 tab 12/25/19 09:00 01/07/20 08:07 Theragran PO 1 tab DAILY MIKE Administration Nifedipine 60 mg 12/25/19 09:00 01/07/20 08:07 Procardia Xl PO 60 mg DAILY MIKE Administration Ondansetron HCl 4 mg 12/28/19 12:37 01/05/20 05:05 Zofran IVP 4 mg Q6H PRN Administration Nausea/Vomiting Pantoprazole Sodium 40 mg 12/25/19 09:00 01/07/20 08:08 Protonix PO 40 mg DAILY MIKE Administration Saccharomyces Boulardii 250 mg 12/27/19 09:00 01/07/20 09:05 Florastor PO 250 mg DAILY MIKE Administration Sodium Chloride 10 ml 12/28/19 21:00 01/07/20 09:05 Flush - Normal Saline IVF Not Given Q12HR MIKE - Exam General Appearance: NAD Heart: RRR, no murmur, no gallops, no rubs, normal peripheral pulses Respiratory: no wheezes (Rales at the bases), no ronchi, normal chest expansion , no tachypnea Gastrointestinal: soft, non-tender, non-distended, normal bowel sounds Extremities: no cyanosis, no edema Hosp A/P (1) Pneumonia Code(s): J18.9 - PNEUMONIA, UNSPECIFIED ORGANISM Status: Acute (2) ESRD (end stage renal disease) on dialysis Code(s): N18.6 - END STAGE RENAL DISEASE; Z99.2 - DEPENDENCE ON RENAL DIALYSIS Status: Chronic (3) DM2 (diabetes mellitus, type 2) Status: Chronic (4) GERD (gastroesophageal reflux disease) Code(s): K21.9 - GASTRO-ESOPHAGEAL REFLUX DISEASE WITHOUT ESOPHAGITIS Status: Chronic Qualifiers: (5) HTN (hypertension) Code(s): I10 - ESSENTIAL (PRIMARY) HYPERTENSION Status: Chronic - Plan * Acute respiratory failure with hypoxemia, sepsis, due to left sided pneumonia with empyema. She is s/p decortication. She has been moved out of the ICU since I saw her, and chest tubes have been removed. * Cefepime and Vancomycin - have been discontinued and she has been transitioned to Keflex * ESRD on PD- stable * HTN - blood pressure is stable * DM- is stable * Severe deconditioning- continue PT/OT * Awaiting Rehab placement
[2020-01-07] MEDS: Atorvastatin Calcium 20 MG TAB PO SCH (21:21)
[2020-01-08] MEDS: Levothyroxine Sodium 100 MCG TAB PO SCH (05:59)
[2020-01-08] MEDS: HumaLOG 300 UNITS/3 ML VIAL SC PRN ×2 (06:00→11:53)
[2020-01-08 06:39] LABS: Anion Gap 22 mmol/L (10-20); BUN (Urea Nitrogen) 52 mg/dL (9.8-20.1); Calc. Creatinine Clearance 5 mL/min (70-130); Calcium 8.7 mg/dL (7.8-10.44); Carbon Dioxide 21 mmol/L (23-31); Chloride 98 mmol/L (98-107); Estimated GFR-MDRD 3; Glucose 196 mg/dL (83-110); Potassium 3.2 mmol/L (3.5-5.1); Sodium 138 mmol/L (136-145)
[2020-01-08] MEDS: Saccharomyces boulardii 250 MG CAP PO SCH (08:50)
[2020-01-08] MEDS: NIFEdipine XL 60 MG TAB PO SCH (08:50)
[2020-01-08] MEDS: buPROPion 75 MG TAB PO SCH ×2 (08:50→21:47)
[2020-01-08] MEDS: Multivit, Therapeutic 1 TAB PO SCH (08:50)
[2020-01-08] MEDS: hydrALAZINE 25 MG TAB PO SCH ×3 (08:51→16:32)
[2020-01-08] MEDS: Losartan 25 MG TAB PO SCH (08:51)
[2020-01-08] MEDS: Fish Oil 1,000 MG CAP PO SCH ×2 (08:51→21:47)
[2020-01-08] MEDS: Carvedilol 6.25 MG TAB PO SCH (08:51)
[2020-01-08] MEDS: Ferrous Sulfate 325 MG TAB PO SCH ×2 (08:52→21:47)
[2020-01-08] MEDS: Cephalexin 250 MG CAP PO SCH ×2 (08:52→21:47)
[2020-01-08] MEDS: Isosorbide Mononitrate (ER) 30 MG TAB PO SCH (08:52)
[2020-01-08] MEDS: Gabapentin 100 MG CAP PO SCH ×2 (08:52→21:47)
[2020-01-08] MEDS: Amlodipine 5 MG TAB PO SCH (08:52)
[2020-01-08] MEDS: Insulin Glargine 15 UNITS in Pre-Filled Syringe 1 EACH SC SCH (08:53)
[2020-01-08] MEDS ORDERED: Potassium Chloride 20 MEQ TAB PO SCH (09:30)
--- NOTE | 2020-01-08 09:47 | PRG ---
DATE OF SERVICE: 01/08/2020 SUBJECTIVE: Ms. Canales is a 74-year-old white female with ESRD and currently undergoing peritoneal dialysis. She was initially admitted for pneumonia, which was complicated by empyema. She has undergone a pulmonary decortication with chest tube placement. She is currently now on p.o. antibiotics. No new complaints today except for an occasional nausea. Her appetite is still decreased. No complaints of chest pain or shortness of breath. OBJECTIVE: VITAL SIGNS: Blood pressure 162/71, heart rate 81, respiratory rate is 16, O2 saturation 99% on 2 L. GENERAL: The patient is awake, sitting comfortable, not in overt distress. SKIN: Adequate turgor. HEENT: She has slightly pale conjunctivae. Anicteric sclerae. NECK: No neck mass. No carotid bruits. No JVD. CHEST: No deformities. LUNGS: Decreased breath sounds, left. Clear breath sounds, right. HEART: Normal sinus rhythm. No murmur. No gallops. No rubs. ABDOMEN: Globular, soft, nontender. No masses. EXTREMITIES: Trace edema. MEDICATIONS: January 08, 2020, reviewed. LABORATORY DATA: January 07, 2020; white count 7, hemoglobin 8.6. Sodium 138, potassium 3.2, chloride 98, carbon dioxide 21, BUN 52, creatinine 11.51, glucose 196, calcium 8.7. ASSESSMENT AND PLAN: 1. End-stage renal disease, continue current continuous cycler-assisted peritoneal dialysis regimen. No changes to be made. Tolerating ultrafiltration. She is averaging about 1.3 L of fluid being removed from the peritoneal dialysis. 2. Anemia continuing weekly Epogen. No judgments to be made at the present time. We will recheck CBC in a.m. 3. Mild hypokalemia. KCl 40 mEq 1 tab now will be given. 4. Awaiting rehab placement and. Job ID: [id number]
[2020-01-08] MEDS: Citalopram 20 MG TAB PO SCH (11:26)
[2020-01-08] MEDS: Ondansetron PF 4 MG/2 ML Vial IVP PRN (11:53)
--- NOTE | 2020-01-08 11:55 | PDOC.HOSPP ---
- Subjective Encounter Date: 01/08/20 Encounter Time: 11:05 Subjective: Mrs Canaels is seen this morning for a follow up on respiratry failure due to pneumonia and empyema. She states she feels well today but still weak. - Objective Vital Signs & Weight: Vital Signs (12 hours) Temp Pulse Resp BP BP BP Pulse Ox 01/08/20 10:59 80 12 01/08/20 10:56 97.5 F L 76 16 145/70 H 99 01/08/20 08:52 81 01/08/20 08:51 81 162/71 H 01/08/20 08:50 81 162/71 H 01/08/20 08:00 97.8 F 88 16 162/71 H 96 01/08/20 06:35 81 16 01/08/20 02:16 99 01/08/20 02:13 79 16 99 Weight Admit Weight 169 lb 1.6 oz Weight 170 lb 6.677 oz Most Recent Monitor Data Heart Rate from ECG 73 NIBP 118/63 NIBP BP-Mean 81 Respiration from ECG 22 SpO2 98 I&O: 01/07/20 01/08/20 01/09/20 06:59 06:59 06:59 Intake Total 480 970 Balance 480 970 Result Diagrams: 01/07/20 06:02 01/08/20 06:06 Additional Labs: Accuchecks 01/08/20 01/08/20 01/07/20 11:05 06:04 20:45 POC Glucose 369 H 240 H 209 H 01/07/20 16:12 POC Glucose 158 H Hospitalist ROS - Medication Medications: Active Medications Generic Name Dose Route Start Last Admin Trade Name Freq PRN Reason Stop Dose Admin Acetaminophen 650 mg 12/28/19 12:37 01/06/20 05:16 Tylenol PO 650 mg Q4H PRN Administration Fever > 38.5C, LOVE or mild pain Albuterol/Ipratropium 3 ml 12/27/19 18:30 01/08/20 10:59 Duoneb NEB 3 ml [id number] MIKE Administration Amlodipine Besylate 5 mg 12/25/19 09:00 01/08/20 08:52 Norvasc PO 5 mg DAILY MIKE Administration Atorvastatin Calcium 20 mg 12/24/19 21:00 01/07/20 21:21 Lipitor PO 20 mg HS MIKE Administration Bupropion HCl 75 mg 12/24/19 21:00 01/08/20 08:50 Wellbutrin PO 75 mg BID MIKE Administration Carvedilol 12.5 mg 12/24/19 21:00 01/08/20 08:51 Coreg PO 12.5 mg BID MIKE Administration Cephalexin 250 mg 01/06/20 21:00 01/08/20 08:52 Keflex PO 250 mg BID MIKE Administration Citalopram Hydrobromide 40 mg 12/29/19 09:00 01/08/20 11:26 Celexa PO 40 mg DAILY MIKE Administration Dextrose/Water 25 gm 12/24/19 03:56 01/05/20 19:16 Dextrose 50% SLOW IVP 25 gm PRN PRN Administration Hypoglycemia Epoetin Jeff-epbx 7,500 unit 01/04/20 08:30 01/04/20 09:43 Retacrit SC 7,500 unit Q7D MIKE Administration Ferrous Sulfate 325 mg 12/24/19 21:00 01/08/20 08:52 Feosol PO 325 mg BID MIKE Administration Fish Oil 1,000 mg 12/24/19 21:00 01/08/20 08:51 Fish Oil PO 1,000 mg BID MIKE Administration Gabapentin 100 mg 01/06/20 21:00 01/08/20 08:52 Neurontin PO 100 mg BID MIKE Administration Hydralazine HCl 25 mg 12/24/19 17:00 01/08/20 08:51 Apresoline PO 25 mg QID MIKE Administration Insulin Glargine 15 units/ 0.15 mls @ 0 mls/hr 12/25/19 09:00 01/08/20 08:53 Miscellaneous Medication SC 0.15 mls QAM MIEK Administration Insulin Glargine 15 units/ 0.15 mls @ 0 mls/hr 12/24/19 21:00 01/07/20 21:24 Miscellaneous Medication SC 0.15 mls HS MIKE Administration Insulin Human Lispro 0 units 01/05/20 06:14 01/08/20 06:00 Humalog SC 4 unit .MODERATE SLIDING SC PRN Administration MODERATE SLIDING SCALE Protocol Isosorbide Mononitrate 30 mg 12/25/19 09:00 01/08/20 08:52 Imdur Er PO 30 mg DAILY MIKE Administration Levothyroxine Sodium 100 mcg 12/24/19 06:00 01/08/20 05:59 Synthroid PO 100 mcg 0600 MIKE Administration Losartan Potassium 25 mg 12/25/19 09:00 01/08/20 08:51 Cozaar PO 25 mg DAILY MIKE Administration Multivitamins 1 tab 12/25/19 09:00 01/08/20 08:50 Theragran PO 1 tab DAILY MIKE Administration Nifedipine 60 mg 12/25/19 09:00 01/08/20 08:50 Procardia Xl PO 60 mg DAILY MIKE Administration Ondansetron HCl 4 mg 12/28/19 12:37 01/05/20 05:05 Zofran IVP 4 mg Q6H PRN Administration Nausea/Vomiting Pantoprazole Sodium 40 mg 12/25/19 09:00 01/08/20 08:52 Protonix PO 40 mg DAILY MIKE Administration Saccharomyces Boulardii 250 mg 12/27/19 09:00 01/08/20 08:50 Florastor PO 250 mg DAILY MIKE Administration Sodium Chloride 10 ml 12/28/19 21:00 01/08/20 08:54 Flush - Normal Saline IVF 10 ml Q12HR MIKE Administration - Exam General Appearance: NAD, awake alert Neck: supple, symmetric, no lymphadenopathy Heart: RRR, no murmur, no gallops, no rubs Respiratory: CTAB, no wheezes, no rales, no ronchi Gastrointestinal: soft, non-tender, non-distended, normal bowel sounds Psychiatric: normal affect Hosp A/P (1) Pneumonia Code(s): J18.9 - PNEUMONIA, UNSPECIFIED ORGANISM Status: Acute (2) ESRD (end stage renal disease) on dialysis Code(s): N18.6 - END STAGE RENAL DISEASE; Z99.2 - DEPENDENCE ON RENAL DIALYSIS Status: Chronic (3) DM2 (diabetes mellitus, type 2) Status: Chronic (4) GERD (gastroesophageal reflux disease) Code(s): K21.9 - GASTRO-ESOPHAGEAL REFLUX DISEASE WITHOUT ESOPHAGITIS Status: Chronic Qualifiers: (5) HTN (hypertension) Code(s): I10 - ESSENTIAL (PRIMARY) HYPERTENSION Status: Chronic (6) Constipation Code(s): K59.00 - CONSTIPATION, UNSPECIFIED Status: Resolved - Plan Pneumonia: stable, continue antibiotics ESRD on PD- creatinine increasing, will continue to monitor, nephrology still following patient at this time, K replaced this morning HTN- stable DM- continue to monitor, stable Awaiting bed at rehab- pt still willing to work with therapy to improve strength
--- NOTE | 2020-01-08 15:37 | PDOC.HOSPP ---
- Subjective Encounter Date: 01/08/20 Encounter Time: 15:36 Subjective: Ms. Canales was seen today in follow-up - Objective Vital Signs & Weight: Vital Signs (12 hours) Temp Pulse Resp BP BP BP Pulse Ox 01/08/20 14:54 76 16 01/08/20 11:54 80 01/08/20 10:59 80 12 01/08/20 10:56 97.5 F L 76 16 145/70 H 99 01/08/20 08:52 81 01/08/20 08:51 81 162/71 H 01/08/20 08:50 81 162/71 H 01/08/20 08:00 97.8 F 88 16 162/71 H 96 01/08/20 06:35 81 16 Weight Admit Weight 169 lb 1.6 oz Weight 170 lb 6.677 oz Most Recent Monitor Data Heart Rate from ECG 73 NIBP 118/63 NIBP BP-Mean 81 Respiration from ECG 22 SpO2 98 I&O: 01/07/20 01/08/20 01/09/20 06:59 06:59 06:59 Intake Total 480 970 Balance 480 970 Result Diagrams: 01/07/20 06:02 01/08/20 06:06 Additional Labs: Accuchecks 01/08/20 01/08/20 01/07/20 11:05 06:04 20:45 POC Glucose 369 H 240 H 209 H 01/07/20 16:12 POC Glucose 158 H Hospitalist ROS - Medication Medications: Active Medications Generic Name Dose Route Start Last Admin Trade Name Freq PRN Reason Stop Dose Admin Acetaminophen 650 mg 12/28/19 12:37 01/06/20 05:16 Tylenol PO 650 mg Q4H PRN Administration Fever > 38.5C, LOVE or mild pain Albuterol/Ipratropium 3 ml 12/27/19 18:30 01/08/20 14:54 Duoneb NEB 3 ml [id number] MIKE Administration Amlodipine Besylate 5 mg 12/25/19 09:00 01/08/20 08:52 Norvasc PO 5 mg DAILY MIKE Administration Atorvastatin Calcium 20 mg 12/24/19 21:00 01/07/20 21:21 Lipitor PO 20 mg HS MIKE Administration Bupropion HCl 75 mg 12/24/19 21:00 01/08/20 08:50 Wellbutrin PO 75 mg BID MIKE Administration Carvedilol 12.5 mg 12/24/19 21:00 01/08/20 08:51 Coreg PO 12.5 mg BID MIKE Administration Cephalexin 250 mg 01/06/20 21:00 01/08/20 08:52 Keflex PO 250 mg BID MIKE Administration Citalopram Hydrobromide 40 mg 12/29/19 09:00 01/08/20 11:26 Celexa PO 40 mg DAILY MIKE Administration Dextrose/Water 25 gm 12/24/19 03:56 01/05/20 19:16 Dextrose 50% SLOW IVP 25 gm PRN PRN Administration Hypoglycemia Epoetin Jeff-epbx 7,500 unit 01/04/20 08:30 01/04/20 09:43 Retacrit SC 7,500 unit Q7D MIKE Administration Ferrous Sulfate 325 mg 12/24/19 21:00 01/08/20 08:52 Feosol PO 325 mg BID MIKE Administration Fish Oil 1,000 mg 12/24/19 21:00 01/08/20 08:51 Fish Oil PO 1,000 mg BID MIKE Administration Gabapentin 100 mg 01/06/20 21:00 01/08/20 08:52 Neurontin PO 100 mg BID MIKE Administration Hydralazine HCl 25 mg 12/24/19 17:00 01/08/20 11:54 Apresoline PO 25 mg QID MIKE Administration Insulin Glargine 15 units/ 0.15 mls @ 0 mls/hr 12/25/19 09:00 01/08/20 08:53 Miscellaneous Medication SC 0.15 mls QAM MIKE Administration Insulin Glargine 15 units/ 0.15 mls @ 0 mls/hr 12/24/19 21:00 01/07/20 21:24 Miscellaneous Medication SC 0.15 mls HS [facility] Administration Insulin Human Lispro 0 units 01/05/20 06:14 01/08/20 11:53 Humalog SC 10 unit .MODERATE SLIDING SC PRN Administration MODERATE SLIDING SCALE Protocol Isosorbide Mononitrate 30 mg 12/25/19 09:00 01/08/20 08:52 Imdur Er PO 30 mg DAILY MIKE Administration Levothyroxine Sodium 100 mcg 12/24/19 06:00 01/08/20 05:59 Synthroid PO 100 mcg 0600 MIKE Administration Losartan Potassium 25 mg 05/10/20 09:00 01/08/20 08:51 Cozaar PO 25 mg DAILY MIKE Administration Multivitamins 1 tab 12/25/19 09:00 01/08/20 08:50 Theragran PO 1 tab DAILY MIKE Administration Nifedipine 60 mg 12/25/19 09:00 01/08/20 08:50 Procardia Xl PO 60 mg DAILY MIKE Administration Ondansetron HCl 4 mg 12/28/19 12:37 01/08/20 11:53 Zofran IVP 4 mg Q6H PRN Administration Nausea/Vomiting Pantoprazole Sodium 40 mg 12/25/19 09:00 01/08/20 08:52 Protonix PO 40 mg DAILY MIKE Administration Saccharomyces Boulardii 250 mg 12/27/19 09:00 01/08/20 08:50 Florastor PO 250 mg DAILY MIKE Administration Sodium Chloride 10 ml 12/28/19 21:00 01/08/20 08:54 Flush - Normal Saline IVF 10 ml Q12HR MIKE Administration Hosp A/P (1) Pneumonia Code(s): J18.9 - PNEUMONIA, UNSPECIFIED ORGANISM Status: Acute (2) ESRD (end stage renal disease) on dialysis Code(s): N18.6 - END STAGE RENAL DISEASE; Z99.2 - DEPENDENCE ON RENAL DIALYSIS Status: Chronic (3) DM2 (diabetes mellitus, type 2) Status: Chronic (4) GERD (gastroesophageal reflux disease) Code(s): K21.9 - GASTRO-ESOPHAGEAL REFLUX DISEASE WITHOUT ESOPHAGITIS Status: Chronic Qualifiers: (5) HTN (hypertension) Code(s): I10 - ESSENTIAL (PRIMARY) HYPERTENSION Status: Chronic - Plan * Acute respiratory failure with hypoxemia, sepsis, due to left sided pneumonia with empyema. She is s/p decortication. She has been moved out of the ICU since I saw her, and chest tubes have been removed. * Continue Keflex * ESRD on PD- stable * HTN - blood pressure is stable * DM- blood glucose is a bit elevated- her insulin will be titrated * Severe deconditioning- continue PT/OT * Awaiting Rehab placement
[2020-01-08] MEDS: Atorvastatin Calcium 20 MG TAB PO SCH (21:47)
[2020-01-08] MEDS: Insulin Glargine 20 UNITS in Pre-Filled Syringe SC SCH (21:48)
[2020-01-09] MEDS: Carvedilol 6.25 MG TAB PO SCH ×3 (00:19→21:40)
[2020-01-09] MEDS: hydrALAZINE 25 MG TAB PO SCH ×5 (00:20→21:40)
[2020-01-09] MEDS: Acetaminophen 325 MG TAB PO PRN (00:21)
[2020-01-09 05:57] LABS: Anion Gap 20 mmol/L (10-20); BUN (Urea Nitrogen) 48 mg/dL (9.8-20.1); Calc. Creatinine Clearance 5 mL/min (70-130); Carbon Dioxide 23 mmol/L (23-31); Chloride 97 mmol/L (98-107); Estimated GFR-MDRD 3; Potassium 3.4 mmol/L (3.5-5.1); Sodium 137 mmol/L (136-145)
[2020-01-09 05:58] LABS: Calcium 8.6 mg/dL (7.8-10.44); Glucose 165 mg/dL (83-110)
[2020-01-09 06:02] LABS: #Basophils 0.1 thou/uL (0.0-0.2); #Eosinphils 0.3 thou/uL (0.0-0.7); #Lymphocytes 1.1 thou/uL (1.20-3.40); #Monocytes 0.7 thou/uL (0.11-0.59); #Neutrophils 4.4 thou/uL (1.40-6.50); %Basophils 0.9 % (0.0-1.0); %Eosinophils 4.3 % (0.0-10.0); %Lymphocytes 17.4 % (21.0-51.0); %Monocytes 10.7 % (0.0-10.0); %Neutrophils 66.8 % (42.0-75.0); Hemoglobin 8.6 g/dL (12.0-16.0); Mean Corpuscular HGB CONC 32.6 g/dL (32.0-36.0); Mean Corpuscular Hemoglobin 31.1 pg (27.0-31.0); Mean Corpuscular Volume 95.4 fL (78.0-98.0); Mean Platelet Volume 7.1 fL (7.4-10.4); Platelet Count 344 thou/uL (130-400); RBC Distribution Width 13.3 % (11.5-14.5); Red Blood Cell (RBC) Count 2.76 mill/uL (4.20-5.40); White Blood Cell (WBC) Count 6.6 thou/uL (4.8-10.8)
[2020-01-09] MEDS: Levothyroxine Sodium 100 MCG TAB PO SCH (06:11)
[2020-01-09] MEDS: HumaLOG 300 UNITS/3 ML VIAL SC PRN ×3 (06:12→17:13)
[2020-01-09] MEDS: Saccharomyces boulardii 250 MG CAP PO SCH (08:49)
[2020-01-09] MEDS: Losartan 25 MG TAB PO SCH (08:49)
[2020-01-09] MEDS: NIFEdipine XL 60 MG TAB PO SCH (08:49)
[2020-01-09] MEDS: buPROPion 75 MG TAB PO SCH ×2 (08:50→21:41)
[2020-01-09] MEDS: Fish Oil 1,000 MG CAP PO SCH ×2 (08:50→21:40)
[2020-01-09] MEDS: Citalopram 20 MG TAB PO SCH (08:51)
[2020-01-09] MEDS: Cephalexin 250 MG CAP PO SCH ×2 (08:52→21:40)
[2020-01-09] MEDS: Ferrous Sulfate 325 MG TAB PO SCH ×2 (08:52→21:40)
[2020-01-09] MEDS: Gabapentin 100 MG CAP PO SCH ×2 (08:52→21:40)
[2020-01-09] MEDS: Amlodipine 5 MG TAB PO SCH (08:52)
[2020-01-09] MEDS: Isosorbide Mononitrate (ER) 30 MG TAB PO SCH (08:52)
[2020-01-09] MEDS: Insulin Glargine 20 UNITS in Pre-Filled Syringe SC SCH ×2 (08:53→21:43)
[2020-01-09] MEDS: Multivit, Therapeutic 1 TAB PO SCH (08:54)
[2020-01-09] MEDS ORDERED: Potassium Chloride 20 MEQ TAB PO SCH (09:15)
--- NOTE | 2020-01-09 09:31 | PRG ---
DATE OF SERVICE: 01/09/2020 Ms. Canales is a 74-year-old white female with ESRD, currently on CCPD. Tolerating current peritoneal dialysis. Initially admitted for pneumonia which was complicated by empyema. She has undergone pulmonary decortication. She is doing well. Currently, on p.o. antibiotics, still with decreased appetite. Currently awaiting rehab placement. OBJECTIVE: VITAL SIGNS: Blood pressure 143/69, heart rate 93, temperature 98.8, pulse ox 93% on room air. GENERAL: Awake, supine, comfortable. Not in overt distress. SKIN: Adequate turgor. HEENT: She has a pinkish conjunctivae. Anicteric sclerae. NECK: No neck mass. No carotid bruits. No JVD. CHEST: No deformities. LUNGS: Decreased breath sounds, left. Right, clear breath sounds. HEART: Normal sinus rhythm. No murmur. No gallops. No rubs. ABDOMEN: Globular, soft, nontender. No masses. EXTREMITIES: Trace edema. MEDICATIONS: Medications of January 09, 2020, reviewed. LABORATORY DATA: January 09, 2020: White count 6.6, hemoglobin 8.6, sodium 137, potassium 3.4, chloride 97, carbon dioxide 23, BUN 48, creatinine 11.51, calcium is 8.6. ASSESSMENT AND PLAN: 1. End-stage renal disease, stable. We will continue current continuous cycling peritoneal dialysis regimen. Fluid removal only as tolerated. No changes with the current peritoneal dialysis solution. 2. Status post pneumonia, currently on p.o. antibiotics, Keflex. 3. Anemia, on weekly Epogen. 4. Mild hypokalemia. We will go ahead and give the patient KCl 40 mEq one tab now. Job ID: [id number]
--- NOTE | 2020-01-09 11:21 | PDOC.HOSPP ---
- Subjective Encounter Date: 01/09/20 Encounter Time: 10:00 Subjective: Mrs Canales was seen as a follow up from acute respiratory failure from pneumonia and empyema. She appears more tired this morning than yesterday but is still willing to work with PT who are at the bedside. Her was also in the room and he and her were both encouraged by the hope of getting to rehab soon. She denies any concerns or overnight events. - Objective Vital Signs & Weight: Vital Signs (12 hours) Temp Pulse Resp BP BP BP Pulse Ox 01/09/20 10:45 77 18 97 01/09/20 08:52 93 01/09/20 08:50 93 143/69 H 01/09/20 08:49 93 143/69 H 01/09/20 07:20 98.8 F 93 12 138/67 93 L 01/09/20 07:03 86 18 96 01/09/20 04:00 98 F 93 18 138/67 93 L 01/09/20 03:51 98 01/09/20 00:00 97.8 F 88 18 117/63 95 Weight Admit Weight 169 lb 1.6 oz Weight 165 lb Most Recent Monitor Data Heart Rate from ECG 73 NIBP 118/63 NIBP BP-Mean 81 Respiration from ECG 22 SpO2 98 I&O: 01/08/20 01/09/20 01/10/20 06:59 06:59 06:59 Intake Total 970 1230 Balance 970 1230 Result Diagrams: 01/09/20 05:16 01/09/20 05:16 Additional Labs: Accuchecks 01/08/20 01/08/20 01/08/20 19:20 15:41 11:05 POC Glucose 150 H 157 H 369 H Hospitalist ROS - Medication Medications: Active Medications Generic Name Dose Route Start Last Admin Trade Name Freq PRN Reason Stop Dose Admin Acetaminophen 650 mg 12/28/19 12:37 01/09/20 00:21 Tylenol PO 650 mg Q4H PRN Administration Fever > 38.5C, LOVE or mild pain Albuterol/Ipratropium 3 ml 12/27/19 18:30 01/09/20 10:45 Duoneb NEB 3 ml [id number] MIKE Administration Amlodipine Besylate 5 mg 12/25/19 09:00 01/09/20 08:52 Norvasc PO 5 mg DAILY MIKE Administration Atorvastatin Calcium 20 mg 12/24/19 21:00 01/08/20 21:47 Lipitor PO 20 mg HS MIKE Administration Bupropion HCl 75 mg 12/24/19 21:00 01/09/20 08:50 Wellbutrin PO 75 mg BID MIKE Administration Carvedilol 12.5 mg 12/24/19 21:00 01/09/20 08:50 Coreg PO 12.5 mg BID MIKE Administration Cephalexin 250 mg 01/06/20 21:00 01/09/20 08:52 Keflex PO 250 mg BID MIKE Administration Citalopram Hydrobromide 40 mg 12/29/19 09:00 01/09/20 08:51 Celexa PO 40 mg DAILY MIKE Administration Dextrose/Water 25 gm 12/24/19 03:56 01/05/20 19:16 Dextrose 50% SLOW IVP 25 gm PRN PRN Administration Hypoglycemia Epoetin Jeff-epbx 7,500 unit 01/04/20 08:30 01/04/20 09:43 Retacrit SC 7,500 unit Q7D MIKE Administration Ferrous Sulfate 325 mg 12/24/19 21:00 01/09/20 08:52 Feosol PO 325 mg BID MIKE Administration Fish Oil 1,000 mg 12/24/19 21:00 01/09/20 08:50 Fish Oil PO 1,000 mg BID MIKE Administration Gabapentin 100 mg 01/06/20 21:00 01/09/20 08:52 Neurontin PO 100 mg BID MIKE Administration Hydralazine HCl 25 mg 12/24/19 17:00 01/09/20 08:50 Apresoline PO 25 mg QID MIKE Administration Insulin Glargine 20 units/ 0.2 mls @ 0 mls/hr 01/08/20 21:00 01/08/20 21:48 Miscellaneous Medication SC 0.2 mls HS MIKE Administration Insulin Glargine 20 units/ 0.2 mls @ 0 mls/hr 01/09/20 09:00 01/09/20 08:53 Miscellaneous Medication SC 0.2 mls QAM MIKE Administration Insulin Human Lispro 0 units 01/05/20 06:14 01/09/20 06:12 Humalog SC 2 unit .MODERATE SLIDING SC PRN Administration MODERATE SLIDING SCALE Protocol Isosorbide Mononitrate 30 mg 12/25/19 09:00 01/09/20 08:52 Imdur Er PO 30 mg DAILY MIKE Administration Levothyroxine Sodium 100 mcg 12/24/19 06:00 01/09/20 06:11 Synthroid PO 100 mcg 0600 MIKE Administration Losartan Potassium 25 mg 12/25/19 09:00 01/09/20 08:49 Cozaar PO 25 mg DAILY MIKE Administration Multivitamins 1 tab 12/25/19 09:00 01/09/20 08:54 Theragran PO 1 tab DAILY MIKE Administration Nifedipine 60 mg 12/25/19 09:00 01/09/20 08:49 Procardia Xl PO 60 mg DAILY MIKE Administration Ondansetron HCl 4 mg 12/28/19 12:37 01/08/20 11:53 Zofran IVP 4 mg Q6H PRN Administration Nausea/Vomiting Pantoprazole Sodium 40 mg 12/25/19 09:00 01/09/20 08:52 Protonix PO 40 mg DAILY MIKE Administration Polyethylene Glycol 17 gm 12/27/19 23:17 01/09/20 11:07 Miralax PO 17 gm DAILYPRN PRN Administration Constipation Saccharomyces Boulardii 250 mg 12/27/19 09:00 01/09/20 08:49 Florastor PO 250 mg DAILY MIKE Administration Sodium Chloride 10 ml 12/28/19 21:00 01/09/20 08:54 Flush - Normal Saline IVF Not Given Q12HR MIKE - Exam General Appearance: NAD, awake alert (appears tired this morning but able to hold conversation) Eye: PERRL ENT: moist mucosa Neck: supple, symmetric, no lymphadenopathy Heart: RRR, no murmur, no gallops, no rubs Respiratory: CTAB, no wheezes, no rales, no ronchi Gastrointestinal: soft, non-tender, non-distended, normal bowel sounds Musculoskeletal: generalized weakness Psychiatric: normal affect Hosp A/P (1) Pneumonia Code(s): J18.9 - PNEUMONIA, UNSPECIFIED ORGANISM Status: Acute (2) ESRD (end stage renal disease) on dialysis Code(s): N18.6 - END STAGE RENAL DISEASE; Z99.2 - DEPENDENCE ON RENAL DIALYSIS Status: Chronic (3) DM2 (diabetes mellitus, type 2) Status: Chronic (4) GERD (gastroesophageal reflux disease) Code(s): K21.9 - GASTRO-ESOPHAGEAL REFLUX DISEASE WITHOUT ESOPHAGITIS Status: Chronic Qualifiers: (5) HTN (hypertension) Code(s): I10 - ESSENTIAL (PRIMARY) HYPERTENSION Status: Chronic (6) Constipation Code(s): K59.00 - CONSTIPATION, UNSPECIFIED Status: Resolved - Plan Pneumonia: stable, continue antibiotics ESRD on PD- creatinine increasing, will continue to monitor, nephrology still following patient at this time, K replaced again this morning HTN- stable DM- increased Levemir starting last night and glucose is better controlled this am, will to continue to monitor to avoid hypoglycemic episodes Severe deconditioning: pt encouraged to continue to work with PT to regain strength Awaiting bed at rehab- to see pt today and send out referral, PT in room to continue to work with patient
[2020-01-09] MEDS: Atorvastatin Calcium 20 MG TAB PO SCH (21:43)
[2020-01-10] MEDS ORDERED: Ondansetron ODT 4 MG TAB PO SCH (01:00)
[2020-01-10] MEDS: Acetaminophen 325 MG TAB PO PRN (02:03)
[2020-01-10] MEDS: Levothyroxine Sodium 100 MCG TAB PO SCH (05:49)
[2020-01-10] MEDS: HumaLOG 300 UNITS/3 ML VIAL SC PRN ×2 (05:50→12:22)
[2020-01-10 05:53] LABS: #Eosinphils 0.3 thou/uL (0.0-0.7); #Lymphocytes 1.2 thou/uL (1.20-3.40); #Monocytes 0.6 thou/uL (0.11-0.59); #Neutrophils 4.4 thou/uL (1.40-6.50); %Basophils 0.6 % (0.0-1.0); %Eosinophils 4.8 % (0.0-10.0); %Lymphocytes 18.5 % (21.0-51.0); %Monocytes 9.6 % (0.0-10.0); %Neutrophils 66.6 % (42.0-75.0); Hemoglobin 8.5 g/dL (12.0-16.0); Mean Corpuscular HGB CONC 32.5 g/dL (32.0-36.0); Mean Corpuscular Volume 95.4 fL (78.0-98.0); Platelet Count 370 thou/uL (130-400); RBC Distribution Width 13.5 % (11.5-14.5); Red Blood Cell (RBC) Count 2.74 mill/uL (4.20-5.40); White Blood Cell (WBC) Count 6.5 thou/uL (4.8-10.8)
[2020-01-10 06:17] LABS: Anion Gap 20 mmol/L (10-20); BUN (Urea Nitrogen) 45 mg/dL (9.8-20.1); Calc. Creatinine Clearance 5 mL/min (70-130); Calcium 8.6 mg/dL (7.8-10.44); Carbon Dioxide 22 mmol/L (23-31); Chloride 97 mmol/L (98-107); Estimated GFR-MDRD 3; Glucose 131 mg/dL (83-110); Potassium 3.8 mmol/L (3.5-5.1); Sodium 135 mmol/L (136-145)
[2020-01-10] MEDS ORDERED: EPOETIN ALFA-EPBX (ESRD) 4,000 UNIT/ML VIAL SC SCH (08:06)
--- NOTE | 2020-01-10 08:35 | PRG ---
DATE OF SERVICE: 01/10/2020 SERVICE: Renal Medicine. SUBJECTIVE: Ms. Canales is a 74-year-old white female, followed up for ESRD. She is currently undergoing peritoneal dialysis and doing well. She is tolerating said treatment. Please note, she was initially admitted for pneumonia, complicated by empyema. She has undergone pulmonary decortication. No new complaints today. OBJECTIVE: VITAL SIGNS: Blood pressure is 150/69, heart rate 87, respiratory rate 16, temperature 98.2, and O2 saturation 94%. GENERAL: Sleepy, but arousable and comfortable, not in distress. SKIN: Adequate turgor. HEENT: She has slightly pale conjunctivae. Anicteric sclerae. NECK: No neck mass. No carotid bruits. No JVD. CHEST: No deformities. LUNGS: Clear breath sounds, right. Left, decreased breath sounds. HEART: Normal sinus rhythm. No murmur. No gallops. No rubs. ABDOMEN: Globular, soft, nontender, no masses. Positive for PD catheter. EXTREMITIES: No edema. No deformities. MEDICATIONS: Medications of January 10, 2020, were reviewed. LABORATORY DATA: Laboratories of January 10, 2020; white count 6.5 and hemoglobin 8.5. Sodium 135, potassium 3.8, chloride 97, carbon dioxide 22, BUN 45, creatinine 11.61, and calcium 8.6. ASSESSMENT AND PLAN: 1. End-stage renal disease, stable. We will continue current continuous cyclic peritoneal dialysis regimen. Tolerating ultrafiltration with peritoneal dialysis. No changes to be made with the current peritoneal dialysis. 2. Depression, currently on Celexa. 3. Status post pneumonia, on maintenance p.o. antibiotics, I think Keflex 250 mg p.o. b.i.d. 4. Anemia, continuing epogen subcu every seven days. 5. Awaiting rehab placement. Job ID: [id number] [facility]
[2020-01-10] MEDS: Amlodipine 5 MG TAB PO SCH (09:45)
[2020-01-10] MEDS: Carvedilol 6.25 MG TAB PO SCH ×2 (09:46→20:51)
[2020-01-10] MEDS: buPROPion 75 MG TAB PO SCH ×2 (09:46→20:52)
[2020-01-10] MEDS: Cephalexin 250 MG CAP PO SCH ×2 (09:47→20:50)
[2020-01-10] MEDS: Citalopram 20 MG TAB PO SCH (09:48)
[2020-01-10] MEDS: Ferrous Sulfate 325 MG TAB PO SCH ×2 (09:49→20:50)
[2020-01-10] MEDS: Gabapentin 100 MG CAP PO SCH ×2 (09:50→20:52)
[2020-01-10] MEDS: Fish Oil 1,000 MG CAP PO SCH ×2 (09:50→20:51)
[2020-01-10] MEDS: hydrALAZINE 25 MG TAB PO SCH ×4 (09:50→20:51)
[2020-01-10] MEDS: Isosorbide Mononitrate (ER) 30 MG TAB PO SCH (09:51)
[2020-01-10] MEDS: Losartan 25 MG TAB PO SCH (09:51)
[2020-01-10] MEDS: Multivit, Therapeutic 1 TAB PO SCH (09:51)
[2020-01-10] MEDS: Saccharomyces boulardii 250 MG CAP PO SCH (09:52)
[2020-01-10] MEDS: NIFEdipine XL 60 MG TAB PO SCH (09:52)
[2020-01-10] MEDS: Insulin Glargine 20 UNITS in Pre-Filled Syringe SC SCH ×2 (11:07→21:06)
--- NOTE | 2020-01-10 11:37 | PDOC.HOSPP ---
- Subjective Encounter Date: 01/10/20 Encounter Time: 11:15 Subjective: Mrs Canales is seen this morning for a follow up for acute respiratory failure from pneumonia and empyena. She is sitting up in her chair and conversating easily today. She voices readiness to go to rehab and to work with PT. She is very cheerful this morning and talkative. No overnight events or concerns. - Objective Vital Signs & Weight: Vital Signs (12 hours) Temp Pulse Pulse Resp BP BP BP 01/10/20 11:00 97.4 F L 94 18 01/10/20 10:17 88 18 01/10/20 09:54 84 138/73 01/10/20 09:52 87 01/10/20 09:50 87 01/10/20 09:46 143/69 H 01/10/20 09:45 87 01/10/20 07:37 98.2 F 87 16 150/69 H 01/10/20 06:28 85 18 01/09/20 23:42 78 18 BP Pulse Ox Pulse Ox 01/10/20 11:00 127/72 98 01/10/20 10:17 98 01/10/20 09:54 95 01/10/20 09:52 01/10/20 09:50 01/10/20 09:46 01/10/20 09:45 01/10/20 07:37 94 L 01/10/20 06:28 97 01/09/20 23:42 95 Weight Admit Weight 169 lb 1.6 oz Weight 166 lb 11.2 oz Most Recent Monitor Data Heart Rate from ECG 73 NIBP 118/63 NIBP BP-Mean 81 Respiration from ECG 22 SpO2 98 I&O: 01/09/20 01/10/20 01/11/20 06:59 06:59 06:59 Intake Total 1230 1330 Balance 1230 1330 Result Diagrams: 01/10/20 05:24 01/10/20 05:24 Additional Labs: Accuchecks 01/10/20 01/10/20 01/09/20 11:12 04:45 20:12 POC Glucose 199 H 174 H 125 H 01/09/20 01/09/20 01/09/20 16:05 12:05 05:37 POC Glucose 201 H 232 H 179 H Hospitalist ROS - Medication Medications: Active Medications Generic Name Dose Route Start Last Admin Trade Name Freq PRN Reason Stop Dose Admin Acetaminophen 650 mg 12/28/19 12:37 01/10/20 02:03 Tylenol PO 650 mg Q4H PRN Administration Fever > 38.5C, LOVE or mild pain Albuterol/Ipratropium 3 ml 12/27/19 18:30 01/10/20 10:17 Duoneb NEB 3 ml [id number] MIKE Administration Amlodipine Besylate 5 mg 12/25/19 09:00 01/10/20 09:45 Norvasc PO 5 mg DAILY MIKE Administration Atorvastatin Calcium 20 mg 12/24/19 21:00 01/09/20 21:43 Lipitor PO 20 mg HS MIKE Administration Bupropion HCl 75 mg 12/24/19 21:00 01/10/20 09:46 Wellbutrin PO 75 mg BID MIKE Administration Carvedilol 12.5 mg 12/24/19 21:00 01/10/20 09:46 Coreg PO 12.5 mg BID MIKE Administration Cephalexin 250 mg 01/06/20 21:00 01/10/20 09:47 Keflex PO 250 mg BID MIKE Administration Citalopram Hydrobromide 40 mg 12/29/19 09:00 01/10/20 09:48 Celexa PO 40 mg DAILY MIKE Administration Dextrose/Water 25 gm 12/24/19 03:56 01/05/20 19:16 Dextrose 50% SLOW IVP 25 gm PRN PRN Administration Hypoglycemia Ferrous Sulfate 325 mg 12/24/19 21:00 01/10/20 09:49 Feosol PO 325 mg BID MIKE Administration Fish Oil 1,000 mg 12/24/19 21:00 01/10/20 09:50 Fish Oil PO 1,000 mg BID MIKE Administration Gabapentin 100 mg 01/06/20 21:00 01/10/20 09:50 Neurontin PO 100 mg BID MIKE Administration Hydralazine HCl 25 mg 12/24/19 17:00 01/10/20 09:50 Apresoline PO 25 mg QID MIKE Administration Insulin Glargine 20 units/ 0.2 mls @ 0 mls/hr 01/08/20 21:00 01/09/20 21:43 Miscellaneous Medication SC 0.2 mls HS MIKE Administration Insulin Glargine 20 units/ 0.2 mls @ 0 mls/hr 01/09/20 09:00 01/10/20 11:07 Miscellaneous Medication SC 0.2 mls QAM MIKE Administration Insulin Human Lispro 0 units 01/05/20 06:14 01/10/20 05:50 Humalog SC 2 unit .MODERATE SLIDING SC PRN Administration MODERATE SLIDING SCALE Protocol Isosorbide Mononitrate 30 mg 12/25/19 09:00 01/10/20 09:51 Imdur Er PO 30 mg DAILY MIKE Administration Levothyroxine Sodium 100 mcg 12/24/19 06:00 01/10/20 05:49 Synthroid PO 100 mcg 0600 MIKE Administration Losartan Potassium 25 mg 12/25/19 09:00 01/10/20 09:51 Cozaar PO 25 mg DAILY MIKE Administration Multivitamins 1 tab 12/25/19 09:00 01/10/20 09:51 Theragran PO 1 tab DAILY MIKE Administration Nifedipine 60 mg 12/25/19 09:00 01/10/20 09:52 Procardia Xl PO 60 mg DAILY MIKE Administration Ondansetron HCl 4 mg 12/28/19 12:37 01/08/20 11:53 Zofran IVP 4 mg Q6H PRN Administration Nausea/Vomiting Pantoprazole Sodium 40 mg 12/25/19 09:00 01/10/20 09:52 Protonix PO 40 mg DAILY MIKE Administration Polyethylene Glycol 17 gm 12/27/19 23:17 01/09/20 11:07 Miralax PO 17 gm DAILYPRN PRN Administration Constipation Saccharomyces Boulardii 250 mg 12/27/19 09:00 01/10/20 09:52 Florastor PO 250 mg DAILY MIKE Administration Sodium Chloride 10 ml 12/28/19 21:00 01/10/20 09:53 Flush - Normal Saline IVF Not Given Q12HR [facility] - Exam General Appearance: NAD, awake alert Eye: PERRL, anicteric sclera ENT: normocephalic atraumatic, moist mucosa Neck: supple, symmetric, no lymphadenopathy Heart: RRR, no murmur, no gallops, no rubs Respiratory: CTAB, no wheezes, no rales, no ronchi Gastrointestinal: soft, non-tender, non-distended, normal bowel sounds, no guarding Extremities: no edema Psychiatric: normal affect, normal behavior Hosp A/P (1) Pneumonia Code(s): J18.9 - PNEUMONIA, UNSPECIFIED ORGANISM Status: Acute (2) ESRD (end stage renal disease) on dialysis Code(s): N18.6 - END STAGE RENAL DISEASE; Z99.2 - DEPENDENCE ON RENAL DIALYSIS Status: Chronic (3) DM2 (diabetes mellitus, type 2) Status: Chronic (4) GERD (gastroesophageal reflux disease) Code(s): K21.9 - GASTRO-ESOPHAGEAL REFLUX DISEASE WITHOUT ESOPHAGITIS Status: Chronic Qualifiers: (5) HTN (hypertension) Code(s): I10 - ESSENTIAL (PRIMARY) HYPERTENSION Status: Chronic (6) Constipation Code(s): K59.00 - CONSTIPATION, UNSPECIFIED Status: Resolved - Plan Pneumonia: stable, still O2 dependent at 2L NC, continue oral antibiotics ESRD on PD- nephrology still following patient at this time, PD at night HTN- stable DM- stable Severe deconditioning: pt encouraged to continue to work with PT to regain strength Awaiting bed at rehab- awaiting insurance approval
[2020-01-10] MEDS ORDERED: EPOETIN ALFA-EPBX (ESRD) 10,000 UNIT/ML VIAL SC SCH (12:00)
--- NOTE | 2020-01-10 15:48 | PDOC.EVN ---
Event Note - Event Note Event Note: Ms. Canales was seen and examined today and discussed with Krista Murillo NP. She was a bit drousy when I saw her, but was reported to be more alert this morning. Her exam is essentially unchanged. Awaiting Rehab authorization.
[2020-01-10 16:06] VITALS: BMI 28.5
[2020-01-10] MEDS: Atorvastatin Calcium 20 MG TAB PO SCH (20:52)
[2020-01-11] MEDS: Levothyroxine Sodium 100 MCG TAB PO SCH (05:50)
[2020-01-11] MEDS: HumaLOG 300 UNITS/3 ML VIAL SC PRN ×3 (05:51→16:42)
[2020-01-11] MEDS: Insulin Glargine 20 UNITS in Pre-Filled Syringe SC SCH ×2 (08:44→21:23)
[2020-01-11] MEDS: Saccharomyces boulardii 250 MG CAP PO SCH (08:46)
[2020-01-11] MEDS: Fish Oil 1,000 MG CAP PO SCH ×2 (08:46→21:20)
[2020-01-11] MEDS: buPROPion 75 MG TAB PO SCH ×2 (08:47→21:22)
[2020-01-11] MEDS: Multivit, Therapeutic 1 TAB PO SCH (08:47)
[2020-01-11] MEDS: Isosorbide Mononitrate (ER) 30 MG TAB PO SCH (08:47)
[2020-01-11] MEDS: Cephalexin 250 MG CAP PO SCH (08:48)
[2020-01-11] MEDS: Amlodipine 5 MG TAB PO SCH (08:48)
[2020-01-11] MEDS: Carvedilol 6.25 MG TAB PO SCH ×2 (08:48→21:21)
[2020-01-11] MEDS: Ferrous Sulfate 325 MG TAB PO SCH ×2 (08:49→21:21)
[2020-01-11] MEDS: Citalopram 20 MG TAB PO SCH (08:49)
[2020-01-11] MEDS: Gabapentin 100 MG CAP PO SCH ×2 (08:49→21:22)
[2020-01-11] MEDS: hydrALAZINE 25 MG TAB PO SCH ×4 (08:50→21:22)
[2020-01-11] MEDS: Losartan 25 MG TAB PO SCH (08:50)
[2020-01-11] MEDS: NIFEdipine XL 60 MG TAB PO SCH (08:51)
--- NOTE | 2020-01-11 08:53 | PRG ---
DATE OF SERVICE: DISCUSSION: Ms. Canales is a 74-year-old white female with ESRD and currently on peritoneal dialysis. She is tolerating her peritoneal dialysis treatment. This morning, she is complaining of some bloatedness. We removed about 300 mL of ultrafiltration with dialysis last night. My plan is to pull more fluid off her. We will be changing her PD solution. No complaints of chest pain or shortness of breath. We are still awaiting rehab placement. OBJECTIVE: VITAL SIGNS: Blood pressure 146/67, heart rate 95, respiratory rate 18, temperature 97.9, and pulse ox 98%. GENERAL: The patient is awake, alert, comfortable, not in distress. SKIN: Adequate turgor. HEENT: She has slightly pale conjunctivae. Anicteric sclerae. NECK: No neck mass. No carotid bruits. No JVD. CHEST: No deformities. LUNGS: Clear breath sounds. HEART: Normal sinus rhythm. No murmur. No gallops. No rubs. ABDOMEN: Globular, soft, and nontender. No masses. Positive for PD catheter. EXTREMITIES: Trace edema. MEDICATIONS: Medications of January 11, 2020, reviewed. LABORATORY DATA: January 10, 2020; white count 6.5, hemoglobin 8.5, sodium 135, potassium 3.8, chloride 97, carbon dioxide 22, BUN 45, creatinine 11.61, and calcium 8.6. ASSESSMENT AND PLAN: 1. End-stage renal disease - due to low ultrafiltration. We will increase PD concentration to 2.5% alternating with 1.5% in hope of getting more fluid off this patient. We will continue the current fill volume 2.5 L. 2. Anemia. Recently Epogen has been increased to 10,000 units subcu weekly. 3. Status post pneumonia, clinically much improved. Awaiting rehab placement. Agree with current management. Job ID: [id number]
--- NOTE | 2020-01-11 13:01 | PDOC.HOSPP ---
- Subjective Encounter Date: 01/11/20 Encounter Time: 11:00 Subjective: Ms Canales was seen as a follow up for pneumonia. She is currently awaiting insurance approval for rehab. She appears more fatigued than yesterday and stated that her dialysis treatment did not go well last night. 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 - Objective Vital Signs & Weight: Vital Signs (12 hours) Temp Pulse Pulse Resp BP BP BP 01/11/20 11:12 98.1 F 81 18 01/11/20 11:01 94 115/63 01/11/20 10:16 82 18 01/11/20 08:51 95 146/67 H 01/11/20 08:50 95 146/67 H 01/11/20 08:48 95 149/73 H 01/11/20 08:00 01/11/20 07:09 97.9 F 95 18 146/67 H 01/11/20 06:46 92 16 BP Pulse Ox Pulse Ox 01/11/20 11:12 115/63 94 L 01/11/20 11:01 81 L 01/11/20 10:16 96 01/11/20 08:51 01/11/20 08:50 01/11/20 08:48 01/11/20 08:00 96 01/11/20 07:09 93 L 01/11/20 06:46 96 Weight Admit Weight 169 lb 1.6 oz Weight 166 lb 7.184 oz Most Recent Monitor Data Heart Rate from ECG 73 NIBP 118/63 NIBP BP-Mean 81 Respiration from ECG 22 SpO2 98 I&O: 01/10/20 01/11/20 01/12/20 06:59 06:59 06:59 Intake Total 1330 930 200 Balance 1330 930 200 Result Diagrams: 01/10/20 05:24 01/10/20 05:24 Additional Labs: Accuchecks 01/11/20 01/11/20 01/10/20 11:16 04:36 19:53 POC Glucose 190 H 214 H 91 01/10/20 16:30 POC Glucose 118 H Hospitalist ROS - Medication Medications: Active Medications Generic Name Dose Route Start Last Admin Trade Name Freq PRN Reason Stop Dose Admin Acetaminophen 650 mg 12/28/19 12:37 01/10/20 02:03 Tylenol PO 650 mg Q4H PRN Administration Fever > 38.5C, LOVE or mild pain Albuterol/Ipratropium 3 ml 12/27/19 18:30 01/11/20 10:16 Duoneb NEB 3 ml [id number] MIKE Administration Amlodipine Besylate 5 mg 12/25/19 09:00 01/11/20 08:48 Norvasc PO 5 mg DAILY MIKE Administration Atorvastatin Calcium 20 mg 12/24/19 21:00 01/10/20 20:52 Lipitor PO 20 mg HS MIKE Administration Bupropion HCl 75 mg 12/24/19 21:00 01/11/20 08:47 Wellbutrin PO 75 mg BID MIKE Administration Carvedilol 12.5 mg 12/24/19 21:00 01/11/20 08:48 Coreg PO 12.5 mg BID MIKE Administration Cephalexin 250 mg 01/06/20 21:00 01/11/20 08:48 Keflex PO 250 mg BID MIKE Administration Citalopram Hydrobromide 40 mg 12/29/19 09:00 01/11/20 08:49 Celexa PO 40 mg DAILY MIKE Administration Dextrose/Water 25 gm 12/24/19 03:56 01/05/20 19:16 Dextrose 50% SLOW IVP 25 gm PRN PRN Administration Hypoglycemia Epoetin [id number] 10,000 unit 01/10/20 12:00 01/10/20 12:22 Retacrit SC 10,000 unit Q7D MIKE Administration Ferrous Sulfate 325 mg 12/24/19 21:00 01/11/20 08:49 Feosol PO 325 mg BID MIKE Administration Fish Oil 1,000 mg 12/24/19 21:00 01/11/20 08:46 Fish Oil PO 1,000 mg BID MIKE Administration Gabapentin 100 mg 01/06/20 21:00 01/11/20 08:49 Neurontin PO 100 mg BID MIKE Administration Hydralazine HCl 25 mg 12/24/19 17:00 01/11/20 08:50 Apresoline PO 25 mg QID MIKE Administration Insulin Glargine 20 units/ 0.2 mls @ 0 mls/hr 01/08/20 21:00 01/10/20 21:06 Miscellaneous Medication SC 0.2 mls HS MIKE Administration Insulin Glargine 20 units/ 0.2 mls @ 0 mls/hr 01/09/20 09:00 01/11/20 08:44 Miscellaneous Medication SC 0.2 mls QAM MIKE Administration Insulin Human Lispro 0 units 01/05/20 06:14 01/11/20 05:51 Humalog SC 4 unit .MODERATE SLIDING SC PRN Administration MODERATE SLIDING SCALE Protocol Isosorbide Mononitrate 30 mg 12/25/19 09:00 01/11/20 08:47 Imdur Er PO 30 mg DAILY MIKE Administration Levothyroxine Sodium 100 mcg 12/24/19 06:00 01/11/20 05:50 Synthroid PO 100 mcg 0600 MIKE Administration Losartan Potassium 25 mg 12/25/19 09:00 01/11/20 08:50 Cozaar PO 25 mg DAILY MIKE Administration Multivitamins 1 tab 12/25/19 09:00 01/11/20 08:47 Theragran PO 1 tab DAILY MIKE Administration Nifedipine 60 mg 12/25/19 09:00 01/11/20 08:51 Procardia Xl PO 60 mg DAILY MIKE Administration Ondansetron HCl 4 mg 12/28/19 12:37 01/08/20 11:53 Zofran IVP 4 mg Q6H PRN Administration Nausea/Vomiting Pantoprazole Sodium 40 mg 12/25/19 09:00 01/11/20 08:46 Protonix PO 40 mg DAILY MIKE Administration Polyethylene Glycol 17 gm 12/27/19 23:17 01/09/20 11:07 Miralax PO 17 gm DAILYPRN PRN Administration Constipation Saccharomyces Boulardii 250 mg 12/27/19 09:00 01/11/20 08:46 Florastor PO 250 mg DAILY MIKE Administration Sodium Chloride 10 ml 12/28/19 21:00 01/11/20 08:52 Flush - Normal Saline IVF Not Given Q12HR MIKE - Exam General Appearance: NAD, awake alert Neck: supple, symmetric, no lymphadenopathy Heart: RRR, no murmur, no gallops, no rubs Respiratory: normal chest expansion, no tachypnea, rhonchi Gastrointestinal: soft, non-tender, normal bowel sounds, distended Psychiatric: normal behavior, flat affect Hosp A/P (1) Pneumonia Code(s): J18.9 - PNEUMONIA, UNSPECIFIED ORGANISM Status: Acute (2) ESRD (end stage renal disease) on dialysis Code(s): N18.6 - END STAGE RENAL DISEASE; Z99.2 - DEPENDENCE ON RENAL DIALYSIS Status: Chronic (3) DM2 (diabetes mellitus, type 2) Status: Chronic (4) GERD (gastroesophageal reflux disease) Code(s): K21.9 - GASTRO-ESOPHAGEAL REFLUX DISEASE WITHOUT ESOPHAGITIS Status: Chronic Qualifiers: (5) HTN (hypertension) Code(s): I10 - ESSENTIAL (PRIMARY) HYPERTENSION Status: Chronic (6) Constipation Code(s): K59.00 - CONSTIPATION, UNSPECIFIED Status: Resolved - Plan Pneumonia: stable, still O2 dependent at 2L NC, continue oral antibiotics ESRD on PD- nephrology still following patient at this time, PD at night, she is slightly distended due to some of the fluid not draining off she states HTN- stable DM- stable Pt still actively working with physical therapy and improving well Awaiting bed at rehab- awaiting insurance approval
--- NOTE | 2020-01-11 14:48 | PDOC.EVN ---
Event Note - Event Note Event Note: Ms. Canales was seen and examined and discussed with Krista Murillo NP, and agree with her assessment. Her exam is unchanged. Continue to encourage oral intake and will add appetite stimulants. Awaiting Rehab placement. Antibiotics can be discontinued.
[2020-01-11] MEDS: Atorvastatin Calcium 20 MG TAB PO SCH (21:21)
[2020-01-12] MEDS: Levothyroxine Sodium 100 MCG TAB PO SCH (05:58)
[2020-01-12] MEDS: HumaLOG 300 UNITS/3 ML VIAL SC PRN ×2 (06:01→11:27)
--- NOTE | 2020-01-12 08:40 | PRG ---
DATE OF SERVICE: 01/12/2020 SERVICE: Renal Medicine. SUBJECTIVE: Ms. Canales is a 74-year-old white female with ESRD and followed up by the Renal Service for management of her ESRD as well as peritoneal dialysis. She is tolerating peritoneal dialysis. She still has decreased p.o. intake. Megace has been started. We are still awaiting rehab placement. No new complaints today. The patient noted to be sleepy and has decreased appetite. OBJECTIVE: VITAL SIGNS: Blood pressure 122/72, heart rate 80, respiratory rate 19, temperature 98.2, pulse ox 98%. GENERAL: The patient is awake, alert, comfortable, not in distress. SKIN: Adequate turgor. HEENT: Slightly pale conjunctivae. Anicteric sclerae. NECK: No neck mass. No carotid bruits. No JVD. CHEST: No deformities. LUNGS: Clear breath sounds. No wheezing. No crackles. HEART: Normal sinus rhythm. No murmurs, no gallops, no rubs. ABDOMEN: Globular, soft, nontender. No masses. Positive for PD catheter. EXTREMITIES: No edema. No deformities. MEDICATIONS: Medications of January 12, 2020, were reviewed. LABORATORY DATA: Laboratories of January 10, 2020; white count 6.5, hemoglobin 8.5. January 12, 2020; glucose 231. January 10, 2020; potassium 3.8, BUN 45, creatinine 11.61. ASSESSMENT AND PLAN: 1. Sleepiness-we will discontinue gabapentin with this patient. 2. Decreased appetite. Megace has been started. 3. End-stage renal disease, stable, tolerating current peritoneal dialysis. Continue 2.5% PD solution with the same fill volume. 4. Anemia, on weekly Epogen. Continue supportive care. We will recheck basic metabolic panel and CBC in a.m. Awaiting rehab placement. Job ID: [id number]
[2020-01-12] MEDS: Saccharomyces boulardii 250 MG CAP PO SCH (08:49)
[2020-01-12] MEDS: buPROPion 75 MG TAB PO SCH (08:49)
[2020-01-12] MEDS: NIFEdipine XL 60 MG TAB PO SCH (08:50)
[2020-01-12] MEDS: Citalopram 20 MG TAB PO SCH (08:50)
[2020-01-12] MEDS: Losartan 25 MG TAB PO SCH (08:52)
[2020-01-12] MEDS: Ferrous Sulfate 325 MG TAB PO SCH (08:52)
[2020-01-12] MEDS: Isosorbide Mononitrate (ER) 30 MG TAB PO SCH (08:52)
[2020-01-12] MEDS: hydrALAZINE 25 MG TAB PO SCH ×2 (08:52→12:39)
[2020-01-12] MEDS: Fish Oil 1,000 MG CAP PO SCH (08:53)
[2020-01-12] MEDS: Multivit, Therapeutic 1 TAB PO SCH (08:54)
[2020-01-12] MEDS: Carvedilol 6.25 MG TAB PO SCH (08:54)
[2020-01-12] MEDS: Amlodipine 5 MG TAB PO SCH (08:55)
[2020-01-12] MEDS ORDERED: Zinc Sulfate 220 MG CAP PO SCH (09:00)
[2020-01-12] MEDS ORDERED: Megestrol Acetate 40 MG TAB PO SCH (09:00)
[2020-01-12] MEDS: Insulin Glargine 20 UNITS in Pre-Filled Syringe SC SCH (09:02)
--- NOTE | 2020-01-12 10:53 | PDOC.HOSPP ---
- Subjective Encounter Date: 01/12/20 Encounter Time: 10:51 Subjective: Ms. Canales was seen today in follow-up pneumonia with empyema. She does not have any complaints. Her is at the bedside. She is very happy about going to Rehab. - Objective Vital Signs & Weight: Vital Signs (12 hours) Temp Pulse Resp BP BP Pulse Ox 01/12/20 10:04 84 18 99 01/12/20 08:55 80 122/72 01/12/20 08:54 145/71 H 01/12/20 08:52 80 122/72 01/12/20 08:50 80 122/72 01/12/20 08:00 98 01/12/20 07:16 98.2 F 80 19 122/72 98 01/12/20 06:43 79 20 99 Weight Admit Weight 169 lb 1.6 oz Weight 167 lb 5.294 oz Most Recent Monitor Data Heart Rate from ECG 73 NIBP 118/63 NIBP BP-Mean 81 Respiration from ECG 22 SpO2 98 I&O: 01/11/20 01/12/20 01/13/20 06:59 06:59 06:59 Intake Total 930 1380 200 Output Total 350 Balance 930 1030 200 Result Diagrams: 01/10/20 05:24 01/10/20 05:24 Additional Labs: Accuchecks 01/12/20 01/11/20 01/11/20 04:35 20:51 16:11 POC Glucose 231 H 173 H 199 H 01/11/20 11:16 POC Glucose 190 H Hospitalist ROS - Medication Medications: Active Medications Generic Name Dose Route Start Last Admin Trade Name Jasenq PRN Reason Stop Dose Admin Acetaminophen 650 mg 12/28/19 12:37 01/10/20 02:03 Tylenol PO 650 mg Q4H PRN Administration Fever > 38.5C, LOVE or mild pain Albuterol/Ipratropium 3 ml 12/27/19 18:30 01/12/20 10:04 Duoneb NEB 3 ml [id number] MIKE Administration Amlodipine Besylate 5 mg 12/25/19 09:00 01/12/20 08:55 Norvasc PO 5 mg DAILY MIKE Administration Atorvastatin Calcium 20 mg 12/24/19 21:00 01/11/20 21:21 Lipitor PO 20 mg HS MIKE Administration Bupropion HCl 75 mg 12/24/19 21:00 01/12/20 08:49 Wellbutrin PO 75 mg BID MIKE Administration Carvedilol 12.5 mg 12/24/19 21:00 01/12/20 08:54 Coreg PO 12.5 mg BID MIKE Administration Citalopram Hydrobromide 40 mg 12/29/19 09:00 01/12/20 08:50 Celexa PO 40 mg DAILY MIKE Administration Dextrose/Water 25 gm 12/24/19 03:56 01/05/20 19:16 Dextrose 50% SLOW IVP 25 gm PRN PRN Administration Hypoglycemia Epoetin [id number] 10,000 unit 01/10/20 12:00 01/10/20 12:22 Retacrit SC 10,000 unit Q7D MIKE Administration Ferrous Sulfate 325 mg 12/24/19 21:00 01/12/20 08:52 Feosol PO 325 mg BID MIKE Administration Fish Oil 1,000 mg 12/24/19 21:00 01/12/20 08:53 Fish Oil PO 1,000 mg BID MIKE Administration Hydralazine HCl 25 mg 12/24/19 17:00 01/12/20 08:52 Apresoline PO 25 mg QID MIKE Administration Insulin Glargine 20 units/ 0.2 mls @ 0 mls/hr 01/08/20 21:00 01/11/20 21:23 Miscellaneous Medication SC 0.2 mls HS MIKE Administration Insulin Glargine 20 units/ 0.2 mls @ 0 mls/hr 01/09/20 09:00 01/12/20 09:02 Miscellaneous Medication SC 0.2 mls QAM MIKE Administration Insulin Human Lispro 0 units 01/05/20 06:14 01/12/20 06:01 Humalog SC 4 unit .MODERATE SLIDING SC PRN Administration MODERATE SLIDING SCALE Protocol Isosorbide Mononitrate 30 mg 12/25/19 09:00 01/12/20 08:52 Imdur Er PO 30 mg DAILY MIKE Administration Levothyroxine Sodium 100 mcg 12/24/19 06:00 01/12/20 05:58 Synthroid PO 100 mcg 0600 MIKE Administration Losartan Potassium 25 mg 12/25/19 09:00 01/12/20 08:52 Cozaar PO 25 mg DAILY MIKE Administration Megestrol Acetate 40 mg 01/12/20 09:00 01/12/20 08:55 Megace PO 40 mg DAILY MIKE Administration Multivitamins 1 tab 12/25/19 09:00 01/12/20 08:54 Theragran PO 1 tab DAILY MIKE Administration Nifedipine 60 mg 12/25/19 09:00 01/12/20 08:50 Procardia Xl PO 60 mg DAILY MIKE Administration Ondansetron HCl 4 mg 12/28/19 12:37 01/08/20 11:53 Zofran IVP 4 mg Q6H PRN Administration Nausea/Vomiting Pantoprazole Sodium 40 mg 12/25/19 09:00 01/12/20 08:55 Protonix PO 40 mg DAILY MIKE Administration Polyethylene Glycol 17 gm 12/27/19 23:17 01/09/20 11:07 Miralax PO 17 gm DAILYPRN PRN Administration Constipation Saccharomyces Boulardii 250 mg 12/27/19 09:00 01/12/20 08:49 Florastor PO 250 mg DAILY MIKE Administration Sodium Chloride 10 ml 12/28/19 21:00 01/12/20 08:58 Flush - Normal Saline IVF Not Given Q12HR MIKE Zinc Sulfate 220 mg 01/12/20 09:00 01/12/20 08:49 Zinc Sulfate PO 220 mg DAILY MIKE Administration - Exam Eye: PERRL, anicteric sclera Heart: RRR, no murmur, no gallops, no rubs, normal peripheral pulses Respiratory: CTAB (+ coarse breath sounds, and rales at both bases) Gastrointestinal: soft, non-tender, non-distended, no palpable masses, no hepatomegaly Extremities: no cyanosis Hosp A/P (1) Pneumonia Code(s): J18.9 - PNEUMONIA, UNSPECIFIED ORGANISM Status: Acute (2) ESRD (end stage renal disease) on dialysis Code(s): N18.6 - END STAGE RENAL DISEASE; Z99.2 - DEPENDENCE ON RENAL DIALYSIS Status: Chronic (3) DM2 (diabetes mellitus, type 2) Status: Chronic (4) GERD (gastroesophageal reflux disease) Code(s): K21.9 - GASTRO-ESOPHAGEAL REFLUX DISEASE WITHOUT ESOPHAGITIS Status: Chronic Qualifiers: (5) HTN (hypertension) Code(s): I10 - ESSENTIAL (PRIMARY) HYPERTENSION Status: Chronic - Plan * Acute respiratory failure with hypoxemia, sepsis, due to left sided pneumonia with empyema. She is s/p decortication. She is clinically stable * She has completed a course of antibiotics * ESRD on PD- stable * HTN - blood pressure is stable * DM- blood glucose is a bit elevated- her insulin will be titrated * Severe deconditioning- continue PT/OT * She has been approved for Rehab- will transfer today
[2020-01-12 12:39] VITALS: BP 122/55
[2020-01-12 12:46] VITALS: TEMP 97.9
--- NOTE | 2020-01-12 22:13 | DIS ---
DATE OF ADMISSION: 12/23/2019 DATE OF DISCHARGE: 01/12/2020 DISCHARGE DISPOSITION: Inpatient rehab. DISCHARGE DIAGNOSES: 1. Acute respiratory failure with hypoxemia. 2. Pneumonia, community-acquired with empyema. 3. End-stage renal disease, on hemodialysis. 4. Diabetes mellitus type 2, insulin dependent. 5. Hypertension. 6. Hypothyroidism. 7. Hypercholesterolemia. 8. Chronic diastolic heart failure. The patient's ejection fraction is 50% to 55% from her last echo on 01/06/2019. 9. Generalized weakness and deconditioning. DISCHARGE MEDICATIONS: Include: 1. Zinc sulfate 220 mg p.o. daily. 2. Florastor 250 mg p.o. daily. 3. Nifedipine XL 60 mg daily. 4. Megace 40 mg p.o. daily. 5. Losartan 25 mg p.o. daily. 6. Isosorbide mononitrate 30 mg p.o. daily. 7. Lantus insulin 20 units in the a.m. and 20 in the p.m. 8. Citalopram 40 mg daily. 9. Carvedilol 12.5 mg b.i.d. 10. Wellbutrin 75 mg twice a day. 11. Atorvastatin 20 mg p.o. at bedtime. 12. Amlodipine 5 mg p.o. daily. 13. Omeprazole 20 mg p.o. daily. 14. Multivitamin once daily. 15. Levothyroxine 100 mcg p.o. daily. 16. Apresoline 25 mg q.i.d. 17. Fish oil 1200 mg p.o. b.i.d. 18. Iron sulfate 325 mg p.o. b.i.d. 19. Cyanocobalamin 500 mcg q.28 days. 20. Clonidine 0.1 mg p.o. twice daily. 21. Vitamin D 3000 units daily. 22. Biotin 35963 mcg p.o. daily. IMAGING DONE DURING HOSPITAL COURSE: The patient had a CT scan of the brain, which was significant for chronic stable changes. There was no acute cardiopulmonary abnormalities demonstrated. The patient had a CT angiogram of the chest in which there was evidence of necrotizing pneumonia in the left lung base, as well as lower density area worrisome for necrosis. There is small right and moderate left pleural effusion. The left pleural effusion may be partially loculated. There is some ground-glass density seen in the right aspect of the right upper lobe, which may represent an infectious or inflammatory process. There is evidence of mediastinal lymphadenopathy. There is evidence of hiatal hernia and evidence of distal esophageal thickening. The patient had a left thoracoscopy and total pulmonary decortication. CODE STATUS: Full code. ALLERGIES: TO PENICILLIN AND CYCLOBENZAPRINE. HOSPITAL COURSE: Ms. Canales is a pleasant 74-year-old female, who presented to the emergency room with complaints of altered mental state, generalized weakness and hypoxemia. The full details of which are outlined in the history and physical. She was evaluated in the emergency room and found to have a dense infiltrate in the left lung. She was admitted for community-acquired pneumonia. She was treated with IV antibiotics over the course of the next couple of days. She continued to have symptoms and her antibiotic coverage was broadened. However, she did not show much improvement clinically, complaining of persistent pain in the left chest and her white blood cell count was slow to improve. For this reason, a CT angiogram of the chest was obtained. This was negative for pulmonary embolism but did demonstrate a necrotizing pneumonia in the left lung, as well as a loculated effusion. Pulmonology as well as Vascular Surgery or Thoracic Surgery was consulted. The patient ultimately had to have decortication of empyema on the left. She tolerated the procedure well. However, she was having difficulty with poor appetite and generalized weakness. She remained in the hospital for several days on IV antibiotics, as well as getting physical therapy. However, she was slow to progress and had significant weakness and debility. After the chest tube was removed and she was able to be transitioned out of the ICU and on to the medical floor, she continued with physical therapy and oral antibiotic treatment and arrangements were made for her to go to inpatient rehab due to her generalized weakness, and she was subsequently transferred to the inpatient rehab on 01/12/2020 in a stable condition. Job ID: [id number]
== END 2020-01-12 13:09 | DRG 853 ==
LOC: ERS 16:47 → 2SW 20:13 → CCU 12-28 08:23 → IMCU/EMU 12-30 18:45 → T4-B 01-03 14:00
PROVIDERS: ADMIT Internal Medicine; ATTEND Internal Medicine
PROC: 3E1M39Z Irrigation of Peritoneal Cavity using Dialysate, Percutaneous Approach (ICD-10-PCS; 2019-12-23)
PROC: 8E0ZXY6 Isolation (ICD-10-PCS; 2019-12-23)
PROC: 0B9P4ZZ Drainage of Left Pleura, Percutaneous Endoscopic Approach (ICD-10-PCS; principal; 2019-12-28)
DX: A41.9 Sepsis, unspecified organism (principal); J96.01 Acute respiratory failure with hypoxia; J18.9 Pneumonia, unspecified organism; N18.6 End stage renal disease; J85.0 Gangrene and necrosis of lung; I50.32 Chronic diastolic (congestive) heart failure; N17.9 Acute kidney failure, unspecified; J44.0 Chronic obstructive pulmonary disease with (acute) lower respiratory infection; I42.9 Cardiomyopathy, unspecified; Z20.828 Contact with and (suspected) exposure to other viral communicable diseases; D51.0 Vitamin B12 deficiency anemia due to intrinsic factor deficiency; E78.00 Pure hypercholesterolemia, unspecified; R65.20 Severe sepsis without septic shock; E11.22 Type 2 diabetes mellitus with diabetic chronic kidney disease; E03.9 Hypothyroidism, unspecified; E11.42 Type 2 diabetes mellitus with diabetic polyneuropathy; F32.9 Major depressive disorder, single episode, unspecified; K21.9 Gastro-esophageal reflux disease without esophagitis; E66.9 Obesity, unspecified; I11.0 Hypertensive heart disease with heart failure; K59.00 Constipation, unspecified; E87.6 Hypokalemia; Z99.2 Dependence on renal dialysis; Z79.890 Hormone replacement therapy; Z90.49 Acquired absence of other specified parts of digestive tract; Z90.710 Acquired absence of both cervix and uterus; Z88.0 Allergy status to penicillin; Z88.8 Allergy status to other drugs, medicaments and biological substances; Z79.4 Long term (current) use of insulin; Z79.899 Other long term (current) drug therapy; Z68.28 Body mass index [BMI] 28.0-28.9, adult
CPT/HCPCS: 36415; 36416; 51701; 70450; 71045; 71046; 71275; 74018; 80048; 80053; 80202; 81003; 81015; 82140; 82330; 82607; 82803; 83605; 83880; 84443; 84484; 85007; 85025; 85027; 87040; 87070; 87205; 87340; 87635; 88112; 88305; 90945; 93005; 94640; 94660; 96374; A4353; G0257; J0171; J0456; J0692; J0696; J1100; J1650; J1815; J1885; J2001; J2405; J2597; J2704; J3010; J3370; J3490; J7050; J7620; Q0162; Q5105; Q9967; S0020; S0179; U0003

== ENCOUNTER 2020-01-31 12:45 | Inpatient (IN) | payer MEDICARE ==
[~2020-01-31 12:45] MED LIST: Lidocaine 1% PF 5 ML VIAL ONE; PROPOFOL 200 MG/20 ML VIAL ONE
[2020-01-31 13:54] LABS: #Basophils 0.1 thou/uL (0.0-0.2); #Eosinphils 0.2 thou/uL (0.0-0.7); #Lymphocytes 1.8 thou/uL (1.20-3.40); #Monocytes 0.8 thou/uL (0.11-0.59); %Basophils 0.8 % (0.0-1.0); %Eosinophils 2.7 % (0.0-10.0); %Lymphocytes 26.6 % (21.0-51.0); %Monocytes 11.1 % (0.0-10.0); %Neutrophils 58.9 % (42.0-75.0); Hemoglobin 6.9 g/dL (12.0-16.0); Mean Corpuscular HGB CONC 32.6 g/dL (32.0-36.0); Mean Corpuscular Hemoglobin 30.3 pg (27.0-31.0); Mean Corpuscular Volume 92.9 fL (78.0-98.0); Platelet Count 316 thou/uL (130-400); RBC Distribution Width 12.2 % (11.5-14.5); Red Blood Cell (RBC) Count 2.28 mill/uL (4.20-5.40); White Blood Cell (WBC) Count 6.8 thou/uL (4.8-10.8)
[2020-01-31 14:01] LABS: PTT 27.7 sec (22.9-36.1); Prothrombin Time 13.5 sec (12.0-14.7)
[2020-01-31 14:21] LABS: ALT (SGPT) 14 U/L (8-55); AST (SGOT) 16 U/L (5-34); Albumin 2.6 g/dL (3.4-4.8); Alkaline Phosphatase 68 U/L (40-110); Anion Gap 21 mmol/L (10-20); BUN (Urea Nitrogen) 89 mg/dL (9.8-20.1); Bilirubin, Total 0.5 mg/dL (0.2-1.2); Calc. Creatinine Clearance 0 mL/min (70-130); Calcium 8.3 mg/dL (7.8-10.44); Carbon Dioxide 27 mmol/L (23-31); Chloride 95 mmol/L (98-107); Estimated GFR-MDRD 3; Globulin 3.1 g/dL (2.4-3.5); Glucose 166 mg/dL (83-110); Potassium 5.4 mmol/L (3.5-5.1); Protein, Total 5.7 g/dL (6.0-8.3); Sodium 138 mmol/L (136-145)
[2020-01-31] MEDS ORDERED: Pantoprazole 40 MG VIAL ONE (15:29)
[2020-01-31] MEDS ORDERED: Pantoprazole 80 MG in Sodium Chloride 0.9% 100 ML IVPB SCH (16:43)
[2020-01-31 18:14] VITALS: BMI 28.3
[2020-01-31] MEDS ORDERED: Ondansetron HCl/PF 4 MG/2 ML Vial IVP PRN (20:36)
[2020-01-31] MEDS ORDERED: Promethazine HCl 25 MG/ML VIAL SLOW IVP PRN (20:36)
[2020-01-31] MEDS ORDERED: Promethazine HCl 25 MG/ML VIAL IM PRN (20:36)
[2020-01-31] MEDS: buPROPion 75 MG TAB PO SCH (21:29)
[2020-01-31] MEDS: Atorvastatin Calcium 20 MG TAB PO SCH (21:29)
[2020-01-31] MEDS: cloNIDine 0.1 MG TAB PO SCH (21:41)
[2020-01-31] MEDS: Carvedilol 6.25 MG TAB PO SCH (21:41)
[2020-01-31 22:01] LABS: Hemoglobin 8.4 g/dL (12.0-16.0)
[2020-01-31 23:10] LABS: HBSAg Index 0.13 S/CO (0-0.99); Hep B Surf Ag Non-Reactive S/CO (NonReactive)
--- NOTE | 2020-02-01 00:56 | CON ---
DATE OF CONSULTATION: 01/31/2020 CHIEF COMPLAINT: Black stools and weakness and anemia. HISTORY OF PRESENT ILLNESS: Ms. Canales is a 74-year-old woman, who presented to the emergency room with black stools and weakness as a transfer from inpatient rehab. She had been hospitalized back in December from December 22 to January 11 with pneumonia and empyema associated with pneumonia. She has been treated with Lovenox subcutaneously to prevent DVT. For the last four days, she has passed black stools a couple times per day or so. They have been runny. She has had no abdominal pain or nausea or vomiting with this. She had a GI bleed back in 2018 when she presented with a red liquidy stools at which time I had performed colonoscopy for her and cauterized some AVMs in the cecum. Currently, she is pale and her does most of the talking for her. She is oriented x3 though. 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 PAST SURGICAL HISTORY: Appendectomy, cholecystectomy, hysterectomy, tonsillectomy. Last month, she had thoracoscopy and pulmonary decortication. FAMILY HISTORY: Negative for GI malignancy. SOCIAL HISTORY: No alcohol, tobacco, or drugs. ALLERGIES: PENICILLIN, CYCLOBENZAPRINE. MEDICATIONS: At the time of discharge a couple weeks ago included: 1. Florastor. 2. Zinc. 3. Nifedipine. 4. Megace. 5. Losartan. 6. Isosorbide mononitrate. 7. Lantus. 8. Citalopram. 9. Carvedilol. 10. Wellbutrin. 11. Atorvastatin. 12. Amlodipine. 13. Omeprazole. 14. Multiple vitamin. 15. Levothyroxine. 16. Apresoline. 17. Fish oil. 18. Iron sulfate. 19. Cyanocobalamin. 20. Clonidine. 21. Vitamin D. 22. Biotin. 23. Apparently at the rehab, she has been on Lovenox subcutaneously once daily with her last dose having been this morning. REVIEW OF SYSTEMS: Negative x10 systems reviewed except as stated in the history of present illness. PHYSICAL EXAMINATION: VITAL SIGNS: Temperature 97.9, pulse 84, blood pressure 122/55. GENERAL: She is in no acute distress. Oriented x3. She is pale and weak. Her eyes have no scleral icterus. Oropharynx is clear without lesions. No cervical or supraclavicular lymphadenopathy. LUNGS: Clear to auscultation bilaterally. HEART: Regular rate and rhythm without murmur. ABDOMEN: Soft, nontender, and nondistended. Bowel sounds are present. EXTREMITIES: No lower extremity edema. RECTAL: Reveals dark running stool in the rectal vault, which could be due to iron or could be melena. The stool is just not obviously melenic. She did have a hemoglobin a couple weeks ago of 7.2 and her current hemoglobin yesterday was 5.9 and after 1 unit transfusion, she came up to 7.0. White blood cell count 6.8, hemoglobin again today 6.9, platelets 316. INR 1.0, creatinine 13.57. IMPRESSION: 1. Anemia of acute blood loss. She presents with black stools and a drop in her hemoglobin from a baseline of 7 to 5.9. After 1 unit transfusion, her hemoglobin is improved to 6.9. It is unclear if the dark stools are actually from iron or true melena. She did have a GI bleed back in 2018. However, at that time, she had red blood from the rectum and the colonoscopy revealed actively bleeding AVMs in the cecum. Right-sided colonic bleeding could again cause black stools, but I am not convinced with what I see on digital rectal exam is truly blood. 2. Gastrointestinal bleed. 3. End-stage renal disease, on hemodialysis. 4. Congestive heart failure, diastolic. 5. Recent pneumonia complicated by empyema requiring decortication. RECOMMENDATIONS: 1. I will follow through with endoscopy this evening. If upper endoscopy is negative and she shows signs of ongoing bleeding, then next step would be colonoscopy to evaluate for a right-sided colonic bleeding related to her previously known cecum AVMs. 2. Proton pump inhibitor. 3. Blood transfusion. Job ID: [id number]
--- NOTE | 2020-02-01 02:19 | HP ---
CHIEF COMPLAINT: Black stools. HISTORY OF PRESENT ILLNESS: The patient is a 74-year-old female with past medical history of CHF, hypothyroidism, kidney stones, pernicious anemia, hypertension, skin cancer, and end-stage renal disease on peritoneal dialysis, who was sent to the emergency department from [facility] for dark stools over the past 3 days. The patient was found to be anemic and received the first unit of transfusion prior to transfer to the ER. The patient denied any chest pain, but complains of dizziness and malaise. REVIEW OF SYSTEMS: Negative except as noted in HPI. PAST MEDICAL HISTORY: As noted above. PAST SURGICAL HISTORY: Includes right shoulder surgery, spinal surgery, thyroidectomy, tonsillectomy, appendectomy, and cholecystectomy. SOCIAL HISTORY: The patient denies alcohol use, illicit drug use, or smoking. ALLERGIES: THE PATIENT IS ALLERGIC TO PENICILLIN AND CEPHALOSPORINS. PHYSICAL EXAMINATION: VITAL SIGNS: Within normal limits. HEENT: Head is normocephalic and atraumatic. NECK: Supple. CHEST: Clear to auscultation bilaterally. CARDIOVASCULAR: Revealed normal S1, S2. No murmurs, rubs, or gallops. ABDOMEN: Soft, nontender. Bowel sounds heard. No edema was noted in her extremities. LABORATORY DATA: EKG did not show any significant ST-T abnormalities. Initial H And H were low at 6.9 and 21.2 respectively. Her potassium level was 5.4, chloride 95, BUN 89, and creatinine 13.57. ASSESSMENT: 1. Gastrointestinal bleeding. 2. Anemia due to acute blood loss. 3. End-stage renal disease on peritoneal dialysis. 4. Hypertension. 5. Hypothyroidism. PLAN: Place in telemetry. Clear liquid diet. Start Protonix drip. Consult GI and Nephrology. Her home medications were reconciled. Transfuse 1 unit of packed RBCs and recheck H and H every 6 hours. Job ID: [id number]
--- NOTE | 2020-02-01 02:36 | OP ---
DATE OF PROCEDURE: 01/31/2020 PROCEDURE: Esophagogastroduodenoscopy. PREOPERATIVE DIAGNOSES: Melena with gastrointestinal bleeding and [id number] anemia. DESCRIPTION OF PROCEDURE: Informed consent was obtained from the patient and her . She was sedated with total intravenous anesthesia. The endoscope was advanced easily to the second portion of the duodenum, and retroflexion was performed in the stomach. The esophagus was normal overall with Schatzki ring in the distal esophagus. The endoscope was passed easily through this. This was fairly widely patent. There was vegetable matter that was trapped between the Schatzki ring and the diaphragmatic pinch of a 2 cm hiatal hernia. This was advanced into the stomach. The gastric mucosa was somewhat friable, but no focal bleeding source was identified. The remainder of the stomach mucosa was normal. The pylorus and first and second portions of the duodenum were normal overall. There was mild melanosis of the second portion and first portion of the duodenum. There was a duodenal diverticulum present. No bleeding source was identified. IMPRESSION: 1. Vegetable matter retained between the Schatzki ring and the diaphragmatic pinch of a 2 cm hiatal hernia. This was advanced into the stomach. 2. 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 3. Duodenal diverticulum in the second portion of the duodenum. 4. No bleeding source was identified. RECOMMENDATIONS: 1. Proton pump inhibitor daily. 2. Follow the trend of her hemoglobin. If she has further signs of lower GI bleeding, then colonoscopy can be performed and consider cautery of the previously identified vascular ectasias in the cecum. Previously when she bled from her cecum AVMs, however, she bled with bright red blood from rectum, and currently she just has dark stools while on iron. Her stool is not clearly melenic, and she could have a more multifactorial source for her anemia. She has been on Lovenox prophylactic dose lately which is currently held. Job ID: [id number]
[2020-02-01 06:26] LABS: #Basophils 0.1 thou/uL (0.0-0.2); #Eosinphils 0.2 thou/uL (0.0-0.7); #Lymphocytes 2.2 thou/uL (1.20-3.40); #Monocytes 0.8 thou/uL (0.11-0.59); #Neutrophils 3.1 thou/uL (1.40-6.50); %Basophils 0.8 % (0.0-1.0); %Eosinophils 2.8 % (0.0-10.0); %Lymphocytes 34.9 % (21.0-51.0); %Monocytes 12.6 % (0.0-10.0); %Neutrophils 48.9 % (42.0-75.0); Hemoglobin 8.3 g/dL (12.0-16.0); Mean Corpuscular HGB CONC 32.5 g/dL (32.0-36.0); Mean Corpuscular Hemoglobin 30.2 pg (27.0-31.0); Mean Corpuscular Volume 92.8 fL (78.0-98.0); Mean Platelet Volume 7.1 fL (7.4-10.4); Platelet Count 330 thou/uL (130-400); RBC Distribution Width 12.2 % (11.5-14.5); Red Blood Cell (RBC) Count 2.73 mill/uL (4.20-5.40); White Blood Cell (WBC) Count 6.4 thou/uL (4.8-10.8)
[2020-02-01] MEDS: Levothyroxine Sodium 100 MCG TAB PO SCH (06:28)
[2020-02-01 06:47] LABS: Anion Gap 25 mmol/L (10-20); BUN (Urea Nitrogen) 84 mg/dL (9.8-20.1); Calc. Creatinine Clearance 4 mL/min (70-130); Calcium 8.4 mg/dL (7.8-10.44); Carbon Dioxide 23 mmol/L (23-31); Chloride 97 mmol/L (98-107); Estimated GFR-MDRD 3; Glucose 162 mg/dL (83-110); Potassium 4.8 mmol/L (3.5-5.1); Sodium 140 mmol/L (136-145)
[2020-02-01] MEDS ORDERED: Prevnar 13-Val Conj/PF 0.5 ML SYRINGE IM ONE (09:00)
[2020-02-01] MEDS: cloNIDine 0.1 MG TAB PO SCH ×2 (09:02→21:19)
[2020-02-01] MEDS: Carvedilol 6.25 MG TAB PO SCH ×2 (09:03→21:19)
[2020-02-01] MEDS: Citalopram 20 MG TAB PO SCH (09:03)
[2020-02-01] MEDS: buPROPion 75 MG TAB PO SCH ×2 (09:04→21:19)
[2020-02-01] MEDS: Amlodipine 5 MG TAB PO SCH (09:04)
[2020-02-01] MEDS ORDERED: Epoetin (ESRD) 20,000 UNITS/ML SC SCH (09:30)
--- NOTE | 2020-02-01 10:09 | PRG ---
DATE OF SERVICE: 02/01/2020 SUBJECTIVE: Ms. Canales is a 74-year-old white female with ESRD, currently on peritoneal dialysis. She was readmitted from rehab to [facility] due to melena/GI bleed. She was also noted to be anemic. She did receive blood transfusion with this hospitalization. In addition, she underwent an emergent upper GI endoscopy with Dr. Christiansen. Findings of melanosis at the first and second portions of the duodenum, which was mild. She had vegetable matter retained between the Schatzki ring and diaphragmatic area. This patient has had an identified vascular ectasias in the cecum. The plan was simply to observe her. The previous bleeding showed bright-red blood per rectum, but this bleeding showed melena. Lovenox is currently on hold. She voices no new complaints. She underwent a peritoneal dialysis without any difficulty last night. OBJECTIVE: VITAL SIGNS: Blood pressure 167/76, heart rate 91, respiratory rate 18, temperature 97.6, O2 saturation 94%. GENERAL: Awake, alert, comfortable, not in distress. SKIN: Adequate turgor. HEENT: Slightly pale conjunctivae. Anicteric sclerae. No neck mass. No carotid bruits. No JVD. CHEST: No deformities. LUNGS: Clear breath sounds. No wheezing. No crackles. HEART: Normal sinus rhythm. No murmurs. No gallops. No rubs. ABDOMEN: Globular, soft, nontender. No masses. Positive for PD catheter. EXTREMITIES: No edema. No deformities. MEDICATIONS: Medications of February 01, 2020, was reviewed. LABORATORY DATA: Laboratories of February 01, 2020; white count 6.4, hemoglobin 8.3. Sodium 140, potassium 4.8, chloride 97, carbon dioxide 23, BUN 84, creatinine 13.23, glucose 132, calcium 8.4. ASSESSMENT AND PLAN: 1. Gastrointestinal bleed - status post upper GI endoscopy. Conservative management. Continue Protonix. GI is following. 2. End-stage renal disease, stable. We will continue current peritoneal dialysis regimen nocturnal. Tolerating said treatment. We will continue to use 2.5% fill volume with alternating 2.5% and 1.5% PD solution. 3. Chronic anemia - we will be restarting Epogen at 7500 units subcu every week. 4. Agree with current management. Recheck basic metabolic and CBC in a.m. Job ID: [id number]
--- NOTE | 2020-02-01 10:20 | PRG ---
DATE OF SERVICE: 02/01/2020 SUBJECTIVE: The patient is without complaint this morning. She denies any nausea, vomiting, or abdominal pain. She has not had a bowel movement since EGD yesterday. PHYSICAL EXAMINATION: VITAL SIGNS: Temperature is 97.6, blood pressure is 154/75, pulse of 91. GENERAL: Does not appear in any distress. She is alert and oriented. HEENT: Anicteric sclerae. Oropharynx is moist. NECK: Supple. CV: Normal S1, S2. Regular rate and rhythm. CHEST: Shows breath sounds. ABDOMEN: Mildly protuberant, but soft and nontender. No palpable mass or organomegaly. She has active bowel sounds. EXTREMITIES: No edema. LABORATORY DATA: Hemoglobin 8.3 this morning (8.4 last night), platelet count 330, white blood count 6.4. Electrolytes within normal range. Creatinine 13.23. ASSESSMENT: 1. [id number]-ghqapnz anemia, likely multifactorial. EGD was unremarkable yesterday. Dark stool is likely from iron as rectal exam does not show clear melenic stool. She did have lower GI bleed 2 years ago from cecal AVMs, that were cauterized. No sign of low GI bleeding at the present time. 2. End-stage renal disease, on peritoneal dialysis. 3. Diabetes. 4. Hypertension. 5. Diastolic heart failure. RECOMMENDATIONS: 1. No plan to repeat colonoscopy at the present time unless the patient has clear evidence of GI bleeding. 2. The patient can be discharged back to rehab from GI standpoint. GI will sign off for now, please recall if needed. Job ID: [id number]
[2020-02-01] MEDS ORDERED: EPOETIN ALFA-EPBX (ESRD) 4,000 UNIT/ML VIAL SC SCH (12:00)
--- NOTE | 2020-02-01 20:56 | PDOC.HOSPP ---
- Subjective Encounter Date: 02/01/20 - Objective Vital Signs & Weight: Vital Signs (12 hours) Temp Pulse Resp BP BP Pulse Ox Pulse Ox 02/01/20 19:28 98.4 F 95 18 154/67 H 92 L 02/01/20 15:47 98.4 F 82 17 154/67 H 94 L 02/01/20 12:23 98 F 86 17 122/61 94 L 02/01/20 10:55 98 02/01/20 09:04 91 02/01/20 09:03 167/76 H 02/01/20 09:02 154/75 H Weight Admit Weight 165 lb Weight 165 lb 1.6 oz I&O: 01/31/20 02/01/20 02/02/20 06:59 06:59 06:59 Intake Total 350 Balance 350 Result Diagrams: 02/01/20 05:53 02/01/20 05:53 Hospitalist ROS - Medication Medications: Active Medications Generic Name Dose Route Start Last Admin Trade Name Freq PRN Reason Stop Dose Admin Amlodipine Besylate 5 mg 02/01/20 09:00 02/01/20 09:04 Norvasc PO 5 mg DAILY MIKE Administration Atorvastatin Calcium 20 mg 01/31/20 21:00 01/31/20 21:29 Lipitor PO 20 mg HS MIKE Administration Bupropion HCl 75 mg 01/31/20 21:00 02/01/20 09:04 Wellbutrin PO 75 mg BID MIKE Administration Carvedilol 12.5 mg 01/31/20 21:00 02/01/20 09:03 Coreg PO 12.5 mg BID MIKE Administration Citalopram Hydrobromide 40 mg 02/01/20 09:00 02/01/20 09:03 Celexa PO 40 mg DAILY MIKE Administration Clonidine 0.1 mg 01/31/20 21:00 02/01/20 09:02 Catapres PO 0.1 mg BID MIKE Administration Epoetin Jeff-epbx 7,500 unit 02/01/20 12:00 02/01/20 15:46 Retacrit SC 7,500 unit Q7D MIKE Administration Isosorbide Mononitrate 30 mg 02/01/20 09:00 02/01/20 09:04 Imdur Er PO 30 mg DAILY MIKE Administration Levothyroxine Sodium 100 mcg 02/01/20 06:00 02/01/20 06:28 Synthroid PO 100 mcg 0600 MIKE Administration Pantoprazole Sodium 40 mg 02/01/20 09:00 02/01/20 09:04 Protonix PO 40 mg DAILY MIKE Administration - Exam General Appearance: NAD, awake alert ENT: normocephalic atraumatic Neck: supple Heart: RRR Respiratory: normal chest expansion, no tachypnea Gastrointestinal: soft, non-tender, non-distended Neurological: cranial nerve grossly intact, no focal deficits Hosp A/P - Plan GI bleeding Anemia due to acute blood loss End-stage renal disease on peritoneal dialysis Status post EGD with no source of active bleeding identified. 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 GI are not planning to repeat colonoscopy without evidence of active bleeding. We will repeat her H&H in the morning and if the numbers are stable we will plan to discharge her back to the rehab.
[2020-02-01] MEDS: Atorvastatin Calcium 20 MG TAB PO SCH (21:19)
--- NOTE | 2020-02-01 22:21 | CT ---
CT HEAD WITHOUT IV CONTRAST COMPARISON: 12/23/2019 HISTORY: Not to back of head. Fall in room. TECHNIQUE: Axial CT imaging at 5 mm intervals from vertex through skull base without contrast FINDINGS: There is a small extra-axial increased density collection along the inner table of the right lateral frontal parietal bone compatible with hemorrhage which measures 4 mm in transverse dimensions. This is most likely attributable to a small subdural hemorrhage. No additional areas of intraparenchymal o r extra-axial hemorrhage are seen. There is decreased attenuation in the periventricular white matter which is nonspecific but likely reflective of chronic small vessel ischemic changes. Remote la cunar infarctions are again seen in each basal ganglia. There is mild cerebral volume loss. The ventricular system is normal in size, shape, and position for the degree of sulcal atrophy. There is no evidence of an acute infarction, mass effect, or midline shift. Visualized paranasal sinuses are clear. Osseous structures appear intact. No calvarial fracture is seen. IMPRESSION: 1. Small extra-axial hemorrhage along the right frontal parietal bone which is likely related to a sm all subdural hemorrhage. Continued follow-up is recommended. 2. Chronic small vessel ischemic changes and cerebral volume loss. 3. Above findings discussed with Kait, nurse in charge of the patient's hospital care on the [facility] l floor on 02/01/2020 at 2216 hours.
--- NOTE | 2020-02-01 22:50 | PDOC.EVN ---
Event Note - Event Note Event Note: Nurse called, patient fell and hit head, no LOC, no focal deficits, no vomiting. Platelets unremarkable, she is not on blood thinners. Ordered CT brain STAT. CT brain showed small right subdural hemorrhage. ordered neuro checks. SBP < 150 maintain, called neuro surgery for input. Discussed with Dr. Alen [place]. Neuro surgery will see patient in am, want q2 hour neuro checks and repeat Ct brain in am.
[2020-02-02] MEDS: Ondansetron ODT 4 MG TAB PO PRN (01:09)
[2020-02-02] MEDS ORDERED: Ondansetron PF 4 MG/2 ML Vial IVP PRN (01:20)
[2020-02-02] MEDS: hydrALAZINE 20 MG/ML VIAL SLOW IVP PRN (01:37)
--- NOTE | 2020-02-02 02:54 | CON ---
DATE OF CONSULTATION: 02/01/2020 This is a telephone consult note. HISTORY OF PRESENT ILLNESS: Ms. Canales is a 74-year-old female, who has been undergoing workup for possible GI bleed. The patient reportedly fell and hit her head this evening without associated loss of consciousness. She is not on any anticoagulation. Her stat brain CT showed a small 4 mm extra-axial right frontoparietal hemorrhage consistent with traumatic subdural hematoma. Plan at this time will be for the patient to be transferred to the Stroke Unit for q.2 hours neuro checks. Head of bed 30 degrees. We will obtain a repeat brain CT in the morning. Should this scan remain stable, then the patient may be discharged tomorrow as planned and our team will arrange for outpatient follow-up in 4 weeks with repeat noncontrast brain CT. Our team will be available for any questions or concerns. Please call for any neurologic changes. Job ID: [id number] MTDD
[2020-02-02 05:25] LABS: Anion Gap 24 mmol/L (10-20); BUN (Urea Nitrogen) 85 mg/dL (9.8-20.1); Calc. Creatinine Clearance 4 mL/min (70-130); Calcium 8.1 mg/dL (7.8-10.44); Carbon Dioxide 25 mmol/L (23-31); Chloride 97 mmol/L (98-107); Estimated GFR-MDRD 3; Glucose 148 mg/dL (83-110); Potassium 4.9 mmol/L (3.5-5.1); Sodium 141 mmol/L (136-145)
[2020-02-02 05:31] LABS: Hemoglobin 7.6 g/dL (12.0-16.0); Hypochromia SLIGHT = 6-15 cells (100X) (0-5/hpf); Lymphocytes 13 % (21-51); MDiff Complete? YES; Mean Corpuscular HGB CONC 31.7 g/dL (32.0-36.0); Mean Corpuscular Hemoglobin 29.4 pg (27.0-31.0); Mean Corpuscular Volume 92.6 fL (78.0-98.0); Metamyelocyte 1 % (0-0); Monocytes 3 % (0-10); Neutrophil 83 % (42-75); Platelet Count 290 thou/uL (130-400); Platelet Morphology Comment Appears Adequate; RBC Distribution Width 12.2 % (11.5-14.5); Red Blood Cell (RBC) Count 2.58 mill/uL (4.20-5.40); White Blood Cell (WBC) Count 5.5 thou/uL (4.8-10.8)
[2020-02-02] MEDS: Levothyroxine Sodium 100 MCG TAB PO SCH (05:38)
--- NOTE | 2020-02-02 06:59 | CT ---
CT BRAIN WITHOUT CONTRAST: Date: 02/02/2020 INDICATION: 74-year-old female with follow-up subdural hemorrhage. COMPARISON: Prior CT of the brain dated 02/01/2020. FINDINGS: The extra-axial hemorrhage overlying the right frontal convexity measures 4.88 mm, where it previousl y measured 4.33 mm. There is mild underlying mass effect on the right frontal lobe convexity. No midl ine shift is evident. No hydrocephalus is noted. There is mild chronic small vessel white matter isch emic change. There is remote lacunar infarction involving the right globus pallidus. Basilar cisterns are patent. Visualized paranasal sinuses are clear. Mastoid air cells are clear. Skull intact. IMPRESSION: Very slight interval enlargement of the extra-axial hemorrhage overlying the right frontal convexity. Continued follow-up is recommended. POS: YUKO
--- NOTE | 2020-02-02 09:52 | PRG ---
DATE OF SERVICE: 02/02/2020 SUBJECTIVE: Ms. Canales is a 74-year-old white female with ESRD and followed up for her maintenance peritoneal dialysis. She underwent peritoneal dialysis last night without any difficulty. Early this morning, she fell down. She hit her head. CAT scan showed a small subdural hematoma. She has been transferred to the Stroke Unit to do neuro vital signs every 2 hours. She was also noted to be slightly more anemic. Blood transfusion will be given. The patient voices no other complaints. No chest pain or shortness of breath. OBJECTIVE: VITAL SIGNS: Blood pressure 162/80, heart rate 79, respiratory rate 16, temperature 98.1, O2 saturation 96%. GENERAL: Awake, alert, comfortable, not in distress. Oriented to 3 spheres. SKIN: Adequate turgor. HEENT: Slightly pale conjunctivae. Anicteric sclerae. NECK: No neck mass. No carotid bruits. No JVD. CHEST: No deformities. LUNGS: Clear breath sounds. HEART: Normal sinus rhythm. No murmurs, gallops, or rubs. ABDOMEN: Globular, soft, nontender. No masses. EXTREMITIES: No edema. No deformities. Positive for PD catheter. MEDICATIONS: Of February 02, 2020, was reviewed. LABORATORY DATA: Laboratories of February 02, 2020, white count 5.5, hemoglobin 7.6. Sodium 141, potassium 4.9, chloride 97, carbon dioxide 25, BUN 85, creatinine 13.6, glucose 148, calcium 8.1. ASSESSMENT AND PLAN: 1. End-stage renal disease, stable. We will continue current CCPD regimen. No changes to be made. Tolerating fluid removal. a. Will discuss orders with the dialysis nurse. 2. Status post fall with subdural hematoma. Continue supportive care. Neurosurgery is currently following the patient. The patient is off her anticoagulation. 3. Anemia-status post gastrointestinal bleed-stable. We will give 1 unit of packed red blood cells. Continue current weekly Epogen regimen with this patient. 4. Overall prognosis remains guarded. Job ID: [id number]
[2020-02-02] MEDS: cloNIDine 0.1 MG TAB PO SCH ×2 (10:00→20:55)
[2020-02-02] MEDS: Citalopram 20 MG TAB PO SCH (10:01)
[2020-02-02] MEDS: buPROPion 75 MG TAB PO SCH ×2 (10:02→20:56)
[2020-02-02] MEDS: Amlodipine 5 MG TAB PO SCH (10:02)
[2020-02-02] MEDS: Carvedilol 6.25 MG TAB PO SCH ×2 (10:03→20:55)
--- NOTE | 2020-02-02 10:17 | PDOC.HOSPP ---
- Subjective Encounter Date: 02/02/20 Subjective: The patient sustained a fall last night. - Objective Vital Signs & Weight: Vital Signs (12 hours) Temp Pulse Resp BP BP Pulse Ox 02/02/20 10:03 154/73 H 02/02/20 10:02 87 154/73 H 02/02/20 10:00 154/73 H 02/02/20 09:29 98.6 F 83 18 120/86 02/02/20 03:45 98.1 F 79 16 162/80 H 96 02/02/20 02:44 146/59 H 02/02/20 01:37 76 151/58 H 02/02/20 01:12 98.6 F 76 16 151/58 H 99 02/01/20 23:47 98.4 F 95 18 143/62 H 91 L Weight Admit Weight 165 lb Weight 165 lb 1.6 oz I&O: 02/01/20 02/02/20 02/03/20 06:59 06:59 06:59 Intake Total 350 Balance 350 Result Diagrams: 02/02/20 04:49 02/02/20 04:49 Hospitalist ROS - Medication Medications: Active Medications Generic Name Dose Route Start Last Admin Trade Name Freq PRN Reason Stop Dose Admin Amlodipine Besylate 5 mg 02/01/20 09:00 02/02/20 10:02 Norvasc PO 5 mg DAILY MIKE Administration Atorvastatin Calcium 20 mg 01/31/20 21:00 02/01/20 21:19 Lipitor PO 20 mg HS MIKE Administration Bupropion HCl 75 mg 01/31/20 21:00 02/02/20 10:02 Wellbutrin PO 75 mg BID MIKE Administration Carvedilol 12.5 mg 01/31/20 21:00 02/02/20 10:03 Coreg PO 12.5 mg BID MIKE Administration Citalopram Hydrobromide 40 mg 02/01/20 09:00 02/02/20 10:01 Celexa PO 40 mg DAILY MIKE Administration Clonidine 0.1 mg 01/31/20 21:00 02/02/20 10:00 Catapres PO 0.1 mg BID MIKE Administration Epoetin Jeff-epbx 7,500 unit 02/01/20 12:00 02/01/20 15:46 Retacrit SC 7,500 unit Q7D MIKE Administration Hydralazine HCl 10 mg 02/01/20 22:26 02/02/20 01:37 Apresoline SLOW IVP 10 mg Q4H PRN Administration SBP > 150 Isosorbide Mononitrate 30 mg 02/01/20 09:00 02/02/20 10:03 Imdur Er PO 30 mg DAILY MIKE Administration Levothyroxine Sodium 100 mcg 02/01/20 06:00 02/02/20 05:38 Synthroid PO 100 mcg 0600 MIKE Administration Ondansetron HCl 4 mg 01/31/20 16:44 02/02/20 01:09 Zofran Odt PO 4 mg Q6H PRN Administration Nausea/Vomiting Pantoprazole Sodium 40 mg 02/01/20 09:00 02/02/20 10:02 Protonix PO 40 mg DAILY MIKE Administration - Exam General Appearance: awake alert ENT: normocephalic atraumatic Neck: supple Heart: RRR, no murmur, no gallops, no rubs Respiratory: CTAB Gastrointestinal: soft, non-tender, non-distended Neurological: cranial nerve grossly intact, no focal deficits Hosp A/P - Plan GI bleeding Anemia due to acute blood loss End-stage renal disease on peritoneal dialysis Traumatic subdural hematoma after a fall. Status post EGD with no source of active bleeding identified. 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 GI are not planning to repeat colonoscopy without evidence of active bleeding. Hemoglobin slightly dropped since yesterday. No recurrent episodes of bleeding. We will transfuse 1 unit of packed RBCs. CT scan of the head that was repeated earlier this morning showed slightly enlarging subdural hematoma. Keep the patient's blood pressure less than 160 systolic with PRN medications. Repeat CT scan of the head later today. Consult case management for placement.
--- NOTE | 2020-02-02 16:37 | CT ---
EXAM: BRAIN CT WITHOUT IV CONTRAST: 02/02/20 HISTORY: Follow-up right sided subdural hematoma. FINDINGS: Persistent overall stable right sided frontal subdural hematoma. No significant mass effect or midlin e shift. No evidence for new hemorrhage. IMPRESSION: Stable appearing right sided frontal subdural hematoma. No significant new process. POS: [facility]
[2020-02-02] MEDS: Atorvastatin Calcium 20 MG TAB PO SCH (20:56)
[2020-02-03 05:03] LABS: Hemoglobin 8.3 g/dL (12.0-16.0)
[2020-02-03] MEDS: Levothyroxine Sodium 100 MCG TAB PO SCH (06:02)
[2020-02-03 07:29] LABS: Anion Gap 21 mmol/L (10-20); BUN (Urea Nitrogen) 78 mg/dL (9.8-20.1); Calc. Creatinine Clearance 4 mL/min (70-130); Carbon Dioxide 28 mmol/L (23-31); Chloride 96 mmol/L (98-107); Estimated GFR-MDRD 3; Glucose 186 mg/dL (83-110); Potassium 4.6 mmol/L (3.5-5.1); Sodium 140 mmol/L (136-145)
[2020-02-03] MEDS: Carvedilol 6.25 MG TAB PO SCH ×2 (09:03→20:23)
[2020-02-03] MEDS: Citalopram 20 MG TAB PO SCH (09:04)
[2020-02-03] MEDS: Amlodipine 5 MG TAB PO SCH (09:04)
[2020-02-03] MEDS: buPROPion 75 MG TAB PO SCH ×2 (09:04→20:24)
[2020-02-03] MEDS: cloNIDine 0.1 MG TAB PO SCH ×2 (09:04→20:24)
--- NOTE | 2020-02-03 09:32 | PRG ---
DATE OF SERVICE: 02/03/2020 SUBJECTIVE: Ms. Canales is a 74-year-old white female who was initially admitted for GI bleed. She underwent an upper GI endoscopy. Bleeding is noted to be stable. She was also transferred to the second floor due to a fall/head trauma, which showed a small subdural hematoma. She remained stable. A repeat CT of the brain was done on February 01, which showed a stable appearing right-sided frontal subdural hematoma. She voices no new complaints today. OBJECTIVE: VITAL SIGNS: Blood pressure is 135/69, heart rate 75, respiratory rate 15, temperature 98.6, O2 saturation 98%. GENERAL: Noted to be awake, alert, comfortable, not in distress. SKIN: Adequate turgor. HEENT: Pinkish conjunctivae, anicteric sclerae. NECK: No neck mass. No carotid bruits. No JVD. CHEST: No deformities. LUNGS: Clear breath sounds. HEART: Normal sinus rhythm. No murmur. No gallops. No rubs. ABDOMEN: Globular, soft, nontender. No masses. Positive for PD catheter. EXTREMITIES: No edema, no deformities. MEDICATIONS: Medications of February 03, 2020, was reviewed. LABORATORY DATA: February 03, 2020, hemoglobin 8.3; sodium 140, potassium 4.6, chloride 96, carbon dioxide 28, BUN 78, creatinine 13.7, calcium 8. ASSESSMENT AND PLAN: 1. Endstage renal disease, continue current CCPD regimen, tolerating current peritoneal dialysis regimen. No changes to be made. 2. Status post fall-subdural hematoma, stable. Repeat CT scan showed no changes in the subdural hematoma. 3. Anemia, p.r.n. blood transfusion, continuing weekly Epogen. Job ID: [id number]
[2020-02-03] MEDS ORDERED: GoLYTELY 4,000 ml Bottle PO SCH (17:00)
[2020-02-03] MEDS ORDERED: Dextrose 5% in Water 1,000 ML IV PRN (17:19)
[2020-02-03] MEDS ORDERED: Dextrose 50% Abboject 50 ML SYRINGE IVP PRN (17:19)
[2020-02-03] MEDS: Insulin Regular 300 UNITS/3 ML VIAL SC PRN ×2 (17:54→20:40)
--- NOTE | 2020-02-03 17:58 | PDOC.HOSPP ---
- Subjective Encounter Date: 02/03/20 Subjective: The patient had 2 episodes of bloody bowel movement which contained large clots. - Objective Vital Signs & Weight: Vital Signs (12 hours) Temp Pulse Pulse Pulse Resp BP BP 02/03/20 14:50 98.2 F 74 16 133/63 02/03/20 14:35 98.4 F 74 18 140/66 02/03/20 13:30 76 112/57 L 02/03/20 11:24 98.6 F 71 18 02/03/20 07:45 02/03/20 07:31 98.6 F 75 15 BP Pulse Ox 02/03/20 14:50 98 02/03/20 14:35 96 02/03/20 13:30 02/03/20 11:24 116/54 L 94 L 02/03/20 07:45 98 02/03/20 07:31 135/69 98 Weight Admit Weight 165 lb Weight 165 lb 1.6 oz I&O: 02/02/20 02/03/20 02/04/20 06:59 06:59 06:59 Intake Total 620 0 Output Total 577 Balance 43 0 Result Diagrams: 02/03/20 04:37 02/03/20 06:50 Additional Labs: Accuchecks 02/03/20 16:59 POC Glucose 223 H Hospitalist ROS - Medication Medications: Active Medications Generic Name Dose Route Start Last Admin Trade Name Jasenq PRN Reason Stop Dose Admin Amlodipine Besylate 5 mg 02/01/20 09:00 02/03/20 09:04 Norvasc PO 5 mg DAILY MIKE Administration Atorvastatin Calcium 20 mg 01/31/20 21:00 02/02/20 20:56 Lipitor PO 20 mg HS MIKE Administration Bupropion HCl 75 mg 01/31/20 21:00 02/03/20 09:04 Wellbutrin PO 75 mg BID MIKE Administration Carvedilol 12.5 mg 01/31/20 21:00 02/03/20 09:03 Coreg PO 12.5 mg BID MIKE Administration Citalopram Hydrobromide 40 mg 02/01/20 09:00 02/03/20 09:04 Celexa PO 40 mg DAILY MIKE Administration Clonidine 0.1 mg 01/31/20 21:00 02/03/20 09:04 Catapres PO 0.1 mg BID MIKE Administration Epoetin Jeff-epbx 7,500 unit 02/01/20 12:00 02/01/20 15:46 Retacrit SC 7,500 unit Q7D MIKE Administration Hydralazine HCl 10 mg 02/01/20 22:26 02/02/20 01:37 Apresoline SLOW IVP 10 mg Q4H PRN Administration SBP > 150 Isosorbide Mononitrate 30 mg 02/01/20 09:00 02/03/20 09:04 Imdur Er PO 30 mg DAILY MIKE Administration Levothyroxine Sodium 100 mcg 02/01/20 06:00 02/03/20 06:02 Synthroid PO 100 mcg 0600 MIKE Administration Ondansetron HCl 4 mg 01/31/20 16:44 02/02/20 01:09 Zofran Odt PO 4 mg Q6H PRN Administration Nausea/Vomiting Pantoprazole Sodium 40 mg 02/01/20 09:00 02/03/20 09:04 Protonix PO 40 mg DAILY MIKE Administration - Exam General Appearance: awake alert ENT: normocephalic atraumatic Neck: supple Respiratory: normal chest expansion, no tachypnea Gastrointestinal: soft, non-tender, normal bowel sounds Neurological: cranial nerve grossly intact, no focal deficits Hosp A/P - Plan GI bleeding Anemia due to acute blood loss End-stage renal disease on peritoneal dialysis Traumatic subdural hematoma after a fall. 02/01: Status post EGD with no source of active bleeding identified. 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 GI are not planning to repeat colonoscopy without evidence of active bleeding. Hemoglobin slightly dropped since yesterday. No recurrent episodes of bleeding. We will transfuse 1 unit of packed RBCs. CT scan of the head that was repeated earlier this morning showed slightly enlarging subdural hematoma. Keep the patient's blood pressure less than 160 systolic with PRN medications. Repeat CT scan of the head later today. Consult case management for placement. 02/02: Recurrent bleeding. GI consulted. Colonoscopy tomorrow. Transfuse 2 units of PRBCs. Continue PD per nephrology. Repeat CT Head shows stable findings.
[2020-02-03] MEDS: Labetalol HCl 100 MG/20 ML VIAL SLOW IVP PRN (18:15)
--- NOTE | 2020-02-03 18:36 | PRG ---
DATE OF SERVICE: 02/03/2020 REASON FOR CONSULTATION: Hematochezia, melena. SUBJECTIVE: Per nursing staff and per the patient, she had multiple bowel movements today, there were more black/maroon in coloration and semi-solid in consistency. She has had approximately 2 to 3 of these bowel movements earlier today, but with no other associated findings. Currently, she denies any nausea, vomiting, fevers, chills, hematemesis, abdominal pain, dysphagia, or odynophagia. OBJECTIVE: VITAL SIGNS: Temperature 98.2, pulse 74, blood pressure 133/63, respiratory rate 16, saturating 98% on room air. GENERAL: The patient was lying in bed, in no acute distress. Alert and oriented x3. CARDIOVASCULAR: Regular rate and rhythm. RESPIRATORY: Clear to auscultation bilaterally. ABDOMEN: Normoactive bowel sounds. Soft, nontender, nondistended. EXTREMITIES: No cyanosis, clubbing, or edema. LABORATORY DATA: CBC with a hemoglobin of 8.3 and hematocrit of 24.4. Chemistry with a sodium of 140, potassium 4.6, chloride 96, CO2 of 28, BUN 78, creatinine 13.74, and glucose 186. IMAGING DATA: CT of the brain was obtained on February 02, 2020, which showed the presence of a 4 mm right-sided frontal subdural hematoma that was unchanged when compared to previous with no significant mass effect or midline shift. 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 Anemia/hematochezia: The patient was initially admitted to the hospital from the inpatient rehab center with complaints of black stools and weakness. She had been treated with Lovenox subcutaneously to prevent DVTs and had been passing black stools a couple of times a day for approximately 24 hours prior to admission. Given the coloration of her stools though, an upper GI bleed was deemed more likely and she subsequently underwent EGD on January 31, 2020, which showed vegetable matter retained between the Schatzki ring and the diaphragmatic pinch with a 2 cm hiatal hernia sac. Melanosis of the first and second portions of the duodenum was also seen, but was mild in terms of its severity. A duodenal diverticulum was seen in second portion of duodenum, but there was no evidence of overt GI bleed seen during that examination. For the next few days after the upper endoscopy, she did not have any further episodes of GI bleeding, so further endoscopy was not planned at that time. However, over the last 24 hours, she has had multiple dark black/darker colored bowel movements concerning for the presence of bleeding, although she has not had a significant decline in her current H and H. RECOMMENDATIONS: 1. Would continue to trend her H and H and transfuse as necessary to maintain an H and H of 7/21. 2. Continue to monitor clinically for signs of active GI bleeding. 3. Would place the patient on a clear liquid diet today with plans for GoLYTELY prep tonight in preparation for colonoscopy tomorrow. 4. If the patient has negative findings on the colonoscopy tomorrow, we would consider repeat upper endoscopy for further evaluation and/or tagged red cell scan. 5. Would continue to avoid any anticoagulation in this patient. We will continue to follow. Please call with any questions. Job ID: [id number]
[2020-02-03] MEDS: Atorvastatin Calcium 20 MG TAB PO SCH (20:23)
[2020-02-04] MEDS: Labetalol HCl 100 MG/20 ML VIAL SLOW IVP PRN (04:50)
[2020-02-04 05:21] LABS: Anion Gap 24 mmol/L (10-20); BUN (Urea Nitrogen) 68 mg/dL (9.8-20.1); Calc. Creatinine Clearance 4 mL/min (70-130); Calcium 8.1 mg/dL (7.8-10.44); Carbon Dioxide 25 mmol/L (23-31); Chloride 96 mmol/L (98-107); Estimated GFR-MDRD 3; Glucose 89 mg/dL (83-110); Potassium 4.4 mmol/L (3.5-5.1); Sodium 141 mmol/L (136-145)
[2020-02-04] MEDS: Levothyroxine Sodium 100 MCG TAB PO SCH (06:13)
[2020-02-04] MEDS: hydrALAZINE 20 MG/ML VIAL SLOW IVP PRN (06:13)
[2020-02-04 06:54] LABS: Band 9 % (5-11); Eosinophils 6 % (0-10); Hemoglobin 10.4 g/dL (12.0-16.0); Lymphocytes 39 % (21-51); MDiff Complete? YES; Mean Corpuscular HGB CONC 33.7 g/dL (32.0-36.0); Mean Corpuscular Hemoglobin 31.1 pg (27.0-31.0); Mean Corpuscular Volume 92.3 fL (78.0-98.0); Monocytes 6 % (0-10); Neutrophil 38 % (42-75); Platelet Count 251 thou/uL (130-400); Red Blood Cell (RBC) Count 3.35 mill/uL (4.20-5.40); White Blood Cell (WBC) Count 6.9 thou/uL (4.8-10.8)
[2020-02-04 07:28] LABS: #Basophils 0.1 thou/uL (0.0-0.2); #Eosinphils 0.1 thou/uL (0.0-0.7); #Lymphocytes 1.9 thou/uL (1.20-3.40); #Monocytes 0.8 thou/uL (0.11-0.59); #Neutrophils 3.5 thou/uL (1.40-6.50); %Basophils 0.9 % (0.0-1.0); %Eosinophils 2.1 % (0.0-10.0); %Lymphocytes 29.4 % (21.0-51.0); %Monocytes 12.7 % (0.0-10.0); %Neutrophils 54.9 % (42.0-75.0); Hemoglobin 10.6 g/dL (12.0-16.0); Mean Corpuscular HGB CONC 33.5 g/dL (32.0-36.0); Mean Corpuscular Hemoglobin 30.9 pg (27.0-31.0); Mean Corpuscular Volume 92.3 fL (78.0-98.0); Platelet Count 237 thou/uL (130-400); Red Blood Cell (RBC) Count 3.44 mill/uL (4.20-5.40); White Blood Cell (WBC) Count 6.4 thou/uL (4.8-10.8)
[2020-02-04] MEDS: Ondansetron ODT 4 MG TAB PO PRN (08:44)
[2020-02-04] MEDS: Acetaminophen 500 MG TAB PO PRN (08:47)
[2020-02-04] MEDS: Citalopram 20 MG TAB PO SCH (09:33)
[2020-02-04] MEDS: buPROPion 75 MG TAB PO SCH ×2 (09:34→21:28)
[2020-02-04] MEDS: Carvedilol 6.25 MG TAB PO SCH ×2 (09:34→21:28)
[2020-02-04] MEDS: Amlodipine 5 MG TAB PO SCH (09:35)
[2020-02-04] MEDS: cloNIDine 0.1 MG TAB PO SCH ×2 (09:35→21:27)
--- NOTE | 2020-02-04 10:10 | PRG ---
DATE OF SERVICE: 02/04/2020 SUBJECTIVE: Ms. Canales is a 74-year-old white female with ESRD and currently on peritoneal dialysis. Doing well with the dialysis. She was initially admitted for GI bleed. In addition, during this hospitalization, she fell down and traumatized her head. She had a subdural hematoma, which is currently stable. No new complaints today. No chest pain or shortness of breath. OBJECTIVE: VITAL SIGNS: Blood pressure 151/69, heart rate 78, respiratory rate 20, temperature 98.2, and O2 sat 96%. GENERAL: The patient is awake, alert, comfortable, not in distress. SKIN: Adequate turgor. HEENT: Pinkish conjunctivae. Anicteric sclerae. NECK: No neck mass. No carotid bruits. No JVD. CHEST: No deformities. LUNGS: Clear breath sounds. HEART: Normal sinus rhythm. No murmur. No gallops. No rubs. ABDOMEN: Globular, soft, and nontender. No masses. EXTREMITIES: No edema. No deformities. MEDICATIONS: Medications of February 04, 2020, were reviewed. LABORATORY DATA: February 04, 2020; white count 6.4, hemoglobin 10.6, sodium 141, potassium 4.4, chloride 96, carbon dioxide 25, BUN 68, creatinine 13.1, and calcium 8.1. ASSESSMENT AND PLAN: 1. Gastrointestinal bleed - stable p.r.n. blood transfusion for colonoscopy today. Possible upper GI endoscopy is being entertained. Continue Epogen. 2. End-stage renal disease, stable. Continue current CCPD regimen, tolerating said treatment. 3. Status post subdural hematoma, stable and neurologically intact. 4. Recheck CBC in a.m. Job ID: [id number]
--- NOTE | 2020-02-04 12:31 | EKG ---
Test Reason : Blood Pressure : / mmHG Vent. Rate : 076 BPM Atrial Rate : 076 BPM P-R Int : 132 ms QRS Dur : 080 ms QT Int : 408 ms P-R-T Axes : 037 -02 030 degrees QTc Int : 459 ms Normal sinus rhythm Low voltage QRS Borderline ECG Confirmed by CARLOS SPARROW DO ([id number]), writer editor FABIOLA STEINER ([id number]) on 02/04/2020 12:31:20 PM Referred By: Confirmed By:CARLOS SPARROW DO
--- NOTE | 2020-02-04 15:52 | PRG ---
DATE OF SERVICE: 02/04/2020 REASON FOR CONSULTATION: Hematochezia, melena. SUBJECTIVE: The patient was originally planned for colonoscopy today, but was unable to tolerate the colonoscopy/GoLYTELY prep due to taste and was flat up, refusing to drink any additional prep per nursing staff. Per the patient, she did have numerous bowel movements, but they were still unclear and that some of those bowel movements were bloody in consistency. Otherwise, there were no other acute events or problems overnight. Currently, she denies any fevers, chills, hematemesis, abdominal pain, dysphagia, or odynophagia. OBJECTIVE: VITAL SIGNS: Temperature 98, pulse 71, blood pressure 140/56, respiratory rate 16, saturating 96% on 2 L nasal cannula. GENERAL: The patient was lying in bed, in no acute distress. Alert and oriented x3. CARDIOVASCULAR: Regular rate and rhythm with a loud S2. RESPIRATORY: Clear to auscultation bilaterally. ABDOMEN: Normoactive bowel sounds. Soft, nontender, nondistended. EXTREMITIES: No cyanosis, clubbing, or edema. LABORATORY DATA: CBC with a white blood cell count of 6.4, hemoglobin 10.6, hematocrit 31.7, platelets 237. Chemistry with a sodium of 141, potassium 4.4, chloride 96, CO2 of 25, BUN 68, creatinine 13.17, glucose 89. IMAGING DATA: There is no current GI imaging available for review. 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 Anemia/hematochezia. The patient was initially admitted to the hospital from the inpatient rehab center with complaints of black stools and weakness concerning for an upper GI bleeding source. Subsequently, she underwent EGD on January 31, 2020, which showed vegetable matter retained between a Schatzki's ring and the diaphragmatic pinch within a 2 cm hiatal hernial sac. No other abnormalities were seen, and at that time, the plan was to monitor the patient for any additional bleeding. However, over the last 24 to 48 hours, she has had further episodes of hematochezia characterized as bright-red blood per rectum, that has been associated with passage of bowel movements concerning for further GI bleeding. Recommendations; 1. Would continue to trend her H and H and transfuse as necessary to maintain an H and H of 7/21. 2. Continue to monitor clinically for signs of active GI bleeding. 3. Would place an NG tube today due to the patient's inability to tolerate the prep. Once the NG tube has been confirmed in position in the stomach, the GoLYTELY prep could then be administered in preparation for colonoscopy tomorrow. 4. We will plan for colonoscopy tomorrow. Please make the patient n.p.o. at midnight except for medications. 5. If the colonoscopy is negative tomorrow, I would then consider a tagged red cell scan for further evaluation. 6. Continue to avoid any anticoagulation in this patient. We will continue to follow. Please call with any questions. Job ID: [id number]
[2020-02-04] MEDS ORDERED: GoLYTELY 4,000 ml Bottle PO SCH (17:00)
--- NOTE | 2020-02-04 20:22 | PDOC.HOSPP ---
- Subjective Encounter Date: 02/04/20 - Objective Vital Signs & Weight: Vital Signs (12 hours) Temp Pulse Resp BP BP Pulse Ox 02/04/20 16:00 98.4 F 77 18 144/70 H 95 02/04/20 11:40 98.0 F 71 16 140/56 L 96 02/04/20 09:35 80 148/81 H Weight Admit Weight 165 lb Weight 165 lb 1.6 oz I&O: 02/03/20 02/04/20 02/05/20 06:59 06:59 06:59 Intake Total 620 1682 240 Output Total 577 717 Balance 43 0027 -994 Result Diagrams: 02/04/20 07:14 02/04/20 04:51 Additional Labs: Accuchecks 02/04/20 02/04/20 02/04/20 17:02 11:40 06:07 POC Glucose 183 H 104 108 02/03/20 20:26 POC Glucose 236 H Hospitalist ROS - Medication Medications: Active Medications Generic Name Dose Route Start Last Admin Trade Name Freq PRN Reason Stop Dose Admin Acetaminophen 500 mg 02/03/20 16:52 02/04/20 08:47 Tylenol PO 500 mg Q6H PRN Administration Headache/Fever or Pain Amlodipine Besylate 5 mg 02/01/20 09:00 02/04/20 09:35 Norvasc PO 5 mg DAILY MIKE Administration Atorvastatin Calcium 20 mg 01/31/20 21:00 02/03/20 20:23 Lipitor PO 20 mg HS MIKE Administration Bupropion HCl 75 mg 01/31/20 21:00 02/04/20 09:34 Wellbutrin PO 75 mg BID MIKE Administration Carvedilol 12.5 mg 01/31/20 21:00 02/04/20 09:34 Coreg PO 12.5 mg BID MIKE Administration Citalopram Hydrobromide 40 mg 02/01/20 09:00 02/04/20 09:33 Celexa PO 40 mg DAILY MIKE Administration Clonidine 0.1 mg 01/31/20 21:00 02/04/20 09:35 Catapres PO 0.1 mg BID MIKE Administration Epoetin Jeff-epbx 7,500 unit 02/01/20 12:00 02/01/20 15:46 Retacrit SC 7,500 unit Q7D MIKE Administration Hydralazine HCl 10 mg 02/01/20 22:26 02/04/20 06:13 Apresoline SLOW IVP 10 mg Q4H PRN Administration SBP > 150 Insulin Human Regular 0 units 02/03/20 17:19 02/03/20 20:40 Humulin R SC 4 unit .MODERATE SLIDING SC PRN Administration MODERATE SLIDING SCALE Protocol Isosorbide Mononitrate 30 mg 02/01/20 09:00 02/04/20 09:34 Imdur Er PO 30 mg DAILY MIKE Administration Labetalol HCl 10 mg 02/02/20 09:59 02/04/20 04:50 Normodyne SLOW IVP 10 mg Q6H PRN Administration SBP >150 (2ND LINE) Levothyroxine Sodium 100 mcg 02/01/20 06:00 02/04/20 06:13 Synthroid PO 100 mcg 0600 MIKE Administration Ondansetron HCl 4 mg 01/31/20 16:44 02/04/20 08:44 Zofran Odt PO 4 mg Q6H PRN Administration Nausea/Vomiting Pantoprazole Sodium 40 mg 02/01/20 09:00 02/04/20 09:34 Protonix PO 40 mg DAILY MIKE Administration - Exam General Appearance: awake alert ENT: normocephalic atraumatic Neck: supple Respiratory: normal chest expansion, no tachypnea Gastrointestinal: soft, non-tender, non-distended, normal bowel sounds Hosp A/P - Plan GI bleeding Anemia due to acute blood loss End-stage renal disease on peritoneal dialysis Traumatic subdural hematoma after a fall. 02/01: Status post EGD with no source of active bleeding identified. 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 GI are not planning to repeat colonoscopy without evidence of active bleeding. Hemoglobin slightly dropped since yesterday. No recurrent episodes of bleeding. We will transfuse 1 unit of packed RBCs. CT scan of the head that was repeated earlier this morning showed slightly enlarging subdural hematoma. Keep the patient's blood pressure less than 160 systolic with PRN medications. Repeat CT scan of the head later today. Consult case management for placement. 02/02: Recurrent bleeding. GI consulted. Colonoscopy tomorrow. Transfuse 2 units of PRBCs. Continue PD per nephrology. Repeat CT Head shows stable findings. 02/03: The patient was not able to tolerate GoLYTELY. The prep will be administered through NG tube overnight in anticipation of her colonoscopy tomorrow. Continue to monitor H&H and transfuse as needed. Appreciate GI.
--- NOTE | 2020-02-04 21:04 | RAD ---
KUB: 02/04/20 PROVIDED CLINICAL HISTORY: Enteric catheter placement. FINDINGS: Comparison chest radiograph 01/25/20. Interval placement of an enteric catheter, the tip of which overlies the right mid abdomen. Left basi lar pleural parenchymal opacity is redemonstrated. IMPRESSION: As above. POS: [facility]
[2020-02-04] MEDS: Atorvastatin Calcium 20 MG TAB PO SCH (21:28)
[2020-02-04] MEDS: HumaLOG 300 UNITS/3 ML VIAL SC PRN (23:09)
[2020-02-05] MEDS: hydrALAZINE 20 MG/ML VIAL SLOW IVP PRN ×2 (00:45→05:24)
[2020-02-05 04:53] LABS: Anion Gap 24 mmol/L (10-20); BUN (Urea Nitrogen) 59 mg/dL (9.8-20.1); Calc. Creatinine Clearance 5 mL/min (70-130); Calcium 8.2 mg/dL (7.8-10.44); Carbon Dioxide 26 mmol/L (23-31); Chloride 95 mmol/L (98-107); Estimated GFR-MDRD 3; Glucose 95 mg/dL (83-110); Potassium 4.3 mmol/L (3.5-5.1); Sodium 141 mmol/L (136-145)
[2020-02-05 05:17] LABS: Band 6 % (5-11); Eosinophils 2 % (0-10); Hemoglobin 10.9 g/dL (12.0-16.0); Lymphocytes 23 % (21-51); MDiff Complete? YES; Mean Corpuscular HGB CONC 33.7 g/dL (32.0-36.0); Mean Corpuscular Hemoglobin 31.1 pg (27.0-31.0); Mean Corpuscular Volume 92.3 fL (78.0-98.0); Mean Platelet Volume 7.1 fL (7.4-10.4); Monocytes 12 % (0-10); Neutrophil 56 % (42-75); Platelet Count 258 thou/uL (130-400); Platelet Morphology Comment Appears Adequate; RBC Distribution Width 12.1 % (11.5-14.5); Red Blood Cell (RBC) Count 3.51 mill/uL (4.20-5.40); White Blood Cell (WBC) Count 7.1 thou/uL (4.8-10.8)
[2020-02-05] MEDS: Levothyroxine Sodium 100 MCG TAB PO SCH (05:24)
[2020-02-05] MEDS: Carvedilol 6.25 MG TAB PO SCH ×2 (08:39→20:11)
[2020-02-05] MEDS: cloNIDine 0.1 MG TAB PO SCH ×2 (08:39→21:03)
[2020-02-05] MEDS: Citalopram 20 MG TAB PO SCH (08:39)
[2020-02-05] MEDS: buPROPion 75 MG TAB PO SCH ×2 (08:40→20:11)
[2020-02-05] MEDS: Amlodipine 5 MG TAB PO SCH (08:40)
[2020-02-05] MEDS: Acetaminophen 500 MG TAB PO PRN (08:43)
--- NOTE | 2020-02-05 11:44 | PRG ---
DATE OF SERVICE: 02/05/2020 SUBJECTIVE: Ms. Canales is a 74-year-old white female with ESRD - currently on peritoneal dialysis, was initially admitted for GI bleed. Her GI bleed has somewhat stabilized. She is due for colonoscopy this a.m. In addition, she has undergone upper GI endoscopy with no active bleeding per se. In addition, during this hospital course, she had a fall, in which she traumatized her head and developed a subdural hematoma. The subdural hematoma was noted to be stable. Recommendation by Neurosurgery is observed. No other complaints today. No chest pain or shortness of breath. OBJECTIVE: VITAL SIGNS: Blood pressure - reviewed, heart rate 84, respiratory rate 20, temperature 98, and pulse ox 94%. GENERAL: The patient is awake, alert, comfortable, not in overt distress. SKIN: Adequate turgor. HEENT: She has pinkish conjunctivae. Anicteric sclerae. NECK: No neck mass. No carotid bruits. No JVD. CHEST: No deformities. LUNGS: Clear breath sounds. No wheezing. No crackles. HEART: Normal sinus rhythm. No murmur. No gallops. No rubs. ABDOMEN: Globular, soft, and nontender. No masses. EXTREMITIES: No edema. No deformities. MEDICATIONS: Medications of February 05, 2020, were reviewed. LABORATORY DATA: February 05, 2020; white count 7.1, hemoglobin 10.9, sodium 141, potassium 4.3, chloride 95, carbon dioxide 26, BUN 59, creatinine 12.73, glucose 95, and calcium 8.2. ASSESSMENT AND PLAN: 1. End-stage renal disease, stable. We will continue current CCPD regimen. She is tolerating said treatment. No changes will be made with current peritoneal dialysis. 2. Anemia, stable. The patient is being ruled out for GI bleed and will undergo colonoscopy. She will continue p.r.n. blood transfusion. Continue weekly Epogen. 3. Agree with current management. Job ID: [id number] [facility]
[2020-02-05] MEDS ORDERED: Lidocaine 1% PF 5 ML VIAL ONE (11:55)
[2020-02-05] MEDS ORDERED: PROPOFOL 200 MG/20 ML VIAL ONE (11:55)
[2020-02-05] MEDS ORDERED: Promethazine HCl 25 MG/ML VIAL SLOW IVP PRN (15:04)
[2020-02-05] MEDS ORDERED: Promethazine HCl 25 MG/ML VIAL IM PRN (15:04)
[2020-02-05] MEDS ORDERED: Ondansetron HCl/PF 4 MG/2 ML Vial IVP PRN (15:04)
[2020-02-05] MEDS ORDERED: Fentanyl 100 MCG/2 ML VIAL ONE (16:08)
--- NOTE | 2020-02-05 16:41 | OP ---
DATE OF PROCEDURE: 02/05/2020 PROCEDURES PERFORMED: Colonoscopy with biopsy and polypectomy, polyp biopsy, and control of hemorrhage. INDICATION FOR PROCEDURE: Hematochezia. DESCRIPTION OF PROCEDURE: After the risks and benefits of the procedure were explained to the patient including risks of bleeding, infection, perforation, reactions to anesthesia, aspiration, and/or pain, informed consent was obtained. The patient was then taken to the endoscopy suite, where she was maneuvered into the left lateral decubitus position. Once the patient was in appropriate position, she underwent deep sedation via propofol and anesthesia support. Once adequate sedation was achieved, a digital rectal examination was performed followed by introduction of the standard colonoscope which was then advanced to the cecum with some difficulty due to the fair to poor prep, colon tortuosity, and significant looping of the scope. The quality of the prep was fair with visualized mucosa inadequate for the determination of lesions less than 6 mm in size. The patient tolerated the procedure well with no immediate perioperative complications. Upon conclusion of the procedure, all equipments were removed from the patient, and she was transferred to PACU in satisfactory condition. FINDINGS: Digital rectal exam, normal findings were seen on external examination. Colon findings: A small to moderate amount of retained semi-solid stool was seen throughout the entire colon limiting visualization of the colonic mucosa, being created as a fair prep of the mucosa seen. There were numerous areas of blood clot formation seen in the cecum and proximal ascending colon. Attempts to washout these blood clots were semi successful. Upon further evaluation of these blood clots, they appeared to have underlying telangiectatic type vessels underneath along with increased mucosal erythema around them making the mucosa almost look like a colitis type picture. Two biopsies were taken for further evaluation with increased bleeding with the biopsies taken. Argon plasma coagulation was then employed to the biopsy sites in addition to the other visible telangiectatic vessels with good hemostasis achieved. At the end of the maneuver, no active bleeding was then seen. While the terminal ileum was not intubated during this procedure, the ileocecal valve and appendiceal orifice appeared normal. Normal-appearing mucosa was then seen in the distal ascending, transverse, and descending colon. Scattered small and large mouth diverticula were seen in the sigmoid colon without evidence of luminal narrowing, erythema, or active/recent bleeding. Normal-appearing mucosa was then seen in the rectum. Small internal hemorrhoids were seen on rectal retroflexion. IMPRESSION: 1. Numerous telangiectatic vessels with surrounding mucosal erythema mild colitis type picture were seen in the cecum and proximal ascending colon. Biopsies were taken for further evaluation along with argon plasma coagulation employed for hemostasis with good hemostasis achieved. 2. Mild sigmoid diverticulosis. 3. Small nonbleeding internal hemorrhoids. RECOMMENDATIONS: 1. We would continue to trend her H and H and transfuse as necessary to maintain an H and H of 7/21. 2. Continue to monitor clinically for signs of active GI bleeding. 3. If the patient does continue to have bloody stools or decrease in her H and H, I would recommend a repeat colonoscopy for further evaluation and coagulation point at that time. 4. We will place the patient on a clear liquid diet and advance as tolerated. 5. We would avoid any anticoagulation for the next 48 to 72 hours. 6. We would avoid any NSAIDs. We will continue to follow. Please call with any questions. Job ID: [id number]
--- NOTE | 2020-02-05 19:09 | PDOC.HOSPP ---
- Subjective Encounter Date: 02/05/20 Subjective: No further episodes of bleeding. - Objective Vital Signs & Weight: Vital Signs (12 hours) Temp Pulse Resp BP BP Pulse Ox 02/05/20 18:33 98 02/05/20 17:13 97.3 F L 69 18 148/52 H 98 02/05/20 11:22 98.6 F 77 20 154/82 H 96 02/05/20 08:40 84 156/74 H 02/05/20 08:39 156/74 H 94 L 02/05/20 07:25 98 F 84 20 156/74 H 94 L Weight Admit Weight 165 lb Weight 165 lb 1.6 oz I&O: 02/04/20 02/05/20 02/06/20 06:59 06:59 06:59 Intake Total 1682 240 Output Total 717 Balance 1682 -477 Result Diagrams: 02/05/20 04:12 02/05/20 04:12 Additional Labs: Accuchecks 02/05/20 02/05/20 02/05/20 17:06 10:52 06:01 POC Glucose 126 H 111 H 111 H 02/04/20 21:29 POC Glucose 262 H Hospitalist ROS - Medication Medications: Active Medications Generic Name Dose Route Start Last Admin Trade Name Freq PRN Reason Stop Dose Admin Acetaminophen 500 mg 02/03/20 16:52 02/05/20 08:43 Tylenol PO 500 mg Q6H PRN Administration Headache/Fever or Pain Amlodipine Besylate 5 mg 02/01/20 09:00 02/05/20 08:40 Norvasc PO 5 mg DAILY MIKE Administration Atorvastatin Calcium 20 mg 01/31/20 21:00 02/04/20 21:28 Lipitor PO 20 mg HS MIKE Administration Bupropion HCl 75 mg 01/31/20 21:00 02/05/20 08:40 Wellbutrin PO 75 mg BID MIKE Administration Carvedilol 12.5 mg 01/31/20 21:00 02/05/20 08:39 Coreg PO 12.5 mg BID MIKE Administration Citalopram Hydrobromide 40 mg 02/01/20 09:00 02/05/20 08:39 Celexa PO 40 mg DAILY MIKE Administration Clonidine 0.1 mg 01/31/20 21:00 02/05/20 08:39 Catapres PO 0.1 mg BID MIEK Administration Epoetin Jeff-epbx 7,500 unit 02/01/20 12:00 02/01/20 15:46 Retacrit SC 7,500 unit Q7D MIKE Administration Hydralazine HCl 10 mg 02/01/20 22:26 02/05/20 05:24 Apresoline SLOW IVP 10 mg Q4H PRN Administration SBP > 150 Insulin Human Lispro 0 units 02/04/20 21:46 02/04/20 23:09 Humalog SC 3 unit .BEDTIME SLIDING SC PRN Administration Bedtime Correctional Scale Insulin Human Regular 0 units 02/03/20 17:19 02/03/20 20:40 Humulin R SC 4 unit .MODERATE SLIDING SC PRN Administration MODERATE SLIDING SCALE Protocol Isosorbide Mononitrate 30 mg 02/01/20 09:00 02/05/20 08:39 Imdur Er PO 30 mg DAILY MIKE Administration Labetalol HCl 10 mg 02/02/20 09:59 02/04/20 04:50 Normodyne SLOW IVP 10 mg Q6H PRN Administration SBP >150 (2ND LINE) Levothyroxine Sodium 100 mcg 02/01/20 06:00 02/05/20 05:24 Synthroid PO 100 mcg 0600 MIKE Administration Ondansetron HCl 4 mg 01/31/20 16:44 02/04/20 08:44 Zofran Odt PO 4 mg Q6H PRN Administration Nausea/Vomiting Pantoprazole Sodium 40 mg 02/01/20 09:00 02/05/20 08:40 Protonix PO 40 mg DAILY MIKE Administration - Exam General Appearance: awake alert ENT: normocephalic atraumatic Neck: supple Heart: RRR Respiratory: CTAB, no wheezes, no rales, no ronchi Gastrointestinal: soft, non-tender, non-distended, normal bowel sounds Neurological: cranial nerve grossly intact, no focal deficits Hosp A/P - Plan GI bleeding Anemia due to acute blood loss End-stage renal disease on peritoneal dialysis Traumatic subdural hematoma after a fall. 02/01: Status post EGD with no source of active bleeding identified. 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 GI are not planning to repeat colonoscopy without evidence of active bleeding. Hemoglobin slightly dropped since yesterday. No recurrent episodes of bleeding. We will transfuse 1 unit of packed RBCs. CT scan of the head that was repeated earlier this morning showed slightly enlarging subdural hematoma. Keep the patient's blood pressure less than 160 systolic with PRN medications. Repeat CT scan of the head later today. Consult case management for placement. 02/02: Recurrent bleeding. GI consulted. Colonoscopy tomorrow. Transfuse 2 units of PRBCs. Continue PD per nephrology. Repeat CT Head shows stable findings. 02/03: The patient was not able to tolerate GoLYTELY. The prep will be administered through NG tube overnight in anticipation of her colonoscopy tomorrow. Continue to monitor H&H and transfuse as needed. Appreciate GI. 02/04: Status post colonoscopy. The results showed multiple telangiectatic vessels that are likely the source of the bleeding in the proximal colon. Status post APC and biopsies. Continue to monitor H&H.
[2020-02-05] MEDS: Atorvastatin Calcium 20 MG TAB PO SCH (20:11)
[2020-02-05] MEDS: HumaLOG 300 UNITS/3 ML VIAL SC PRN (20:12)
[2020-02-06 05:22] LABS: Anion Gap 26 mmol/L (10-20); BUN (Urea Nitrogen) 56 mg/dL (9.8-20.1); Calc. Creatinine Clearance 4 mL/min (70-130); Calcium 8.3 mg/dL (7.8-10.44); Carbon Dioxide 24 mmol/L (23-31); Chloride 95 mmol/L (98-107); Estimated GFR-MDRD 3; Glucose 197 mg/dL (83-110); Potassium 4.1 mmol/L (3.5-5.1); Sodium 141 mmol/L (136-145)
[2020-02-06] MEDS: Levothyroxine Sodium 100 MCG TAB PO SCH (05:55)
[2020-02-06] MEDS: Insulin Regular 300 UNITS/3 ML VIAL SC PRN ×2 (05:55→18:10)
--- NOTE | 2020-02-06 07:17 | PDOC.HOSPP ---
- Subjective Encounter Date: 02/06/20 Encounter Time: 10:00 Subjective: Patient doing well without complaint. No headache. No shortness of breath. No bloody bowel movements. - Objective Vital Signs & Weight: Vital Signs (12 hours) Temp Pulse Resp BP BP Pulse Ox 02/06/20 03:28 98.2 F 69 16 142/65 H 98 02/06/20 00:31 98 02/05/20 23:51 98.9 F 60 16 118/55 L 98 02/05/20 21:03 129/71 02/05/20 20:11 141/70 H 02/05/20 20:10 96 02/05/20 20:00 98 02/05/20 19:32 97.9 F 72 16 134/67 96 Weight Admit Weight 165 lb Weight 165 lb 1.6 oz I&O: 02/05/20 02/06/20 02/07/20 06:59 06:59 06:59 Intake Total 240 100 Output Total 717 Balance -477 100 Result Diagrams: 02/06/20 08:55 02/06/20 04:27 Additional Labs: Accuchecks 02/06/20 02/05/20 02/05/20 05:37 19:40 17:06 POC Glucose 199 H 245 H 126 H 02/05/20 10:52 POC Glucose 111 H Hospitalist ROS - Review of Systems Constitutional: denies: fever, chills Respiratory: denies: cough, shortness of breath Cardiovascular: denies: chest pain, palpitations Gastrointestinal: denies: nausea, vomiting, abdominal pain, diarrhea, hematochezia - Medication Medications: Active Medications Generic Name Dose Route Start Last Admin Trade Name Jasenq PRN Reason Stop Dose Admin Acetaminophen 500 mg 02/03/20 16:52 02/05/20 08:43 Tylenol PO 500 mg Q6H PRN Administration Headache/Fever or Pain Amlodipine Besylate 5 mg 02/01/20 09:00 02/05/20 08:40 Norvasc PO 5 mg DAILY MIKE Administration Atorvastatin Calcium 20 mg 01/31/20 21:00 02/05/20 20:11 Lipitor PO 20 mg HS MIKE Administration Bupropion HCl 75 mg 01/31/20 21:00 02/05/20 20:11 Wellbutrin PO 75 mg BID MIKE Administration Carvedilol 12.5 mg 01/31/20 21:00 02/05/20 20:11 Coreg PO 12.5 mg BID MIKE Administration Citalopram Hydrobromide 40 mg 02/01/20 09:00 02/05/20 08:39 Celexa PO 40 mg DAILY MIKE Administration Clonidine 0.1 mg 01/31/20 21:00 02/05/20 21:03 Catapres PO 0.1 mg BID MIKE Administration Epoetin Jeff-epbx 7,500 unit 02/01/20 12:00 02/01/20 15:46 Retacrit SC 7,500 unit Q7D MIKE Administration Hydralazine HCl 10 mg 02/01/20 22:26 02/05/20 05:24 Apresoline SLOW IVP 10 mg Q4H PRN Administration SBP > 150 Insulin Human Lispro 0 units 02/04/20 21:46 02/05/20 20:12 Humalog SC 2 unit .BEDTIME SLIDING SC PRN Administration Bedtime Correctional Scale Insulin Human Regular 0 units 02/03/20 17:19 02/06/20 05:55 Humulin R SC 2 unit .MODERATE SLIDING SC PRN Administration MODERATE SLIDING SCALE Protocol Isosorbide Mononitrate 30 mg 02/01/20 09:00 02/05/20 08:39 Imdur Er PO 30 mg DAILY MIKE Administration Labetalol HCl 10 mg 02/02/20 09:59 02/04/20 04:50 Normodyne SLOW IVP 10 mg Q6H PRN Administration SBP >150 (2ND LINE) Levothyroxine Sodium 100 mcg 02/01/20 06:00 02/06/20 05:55 Synthroid PO 100 mcg 0600 MIKE Administration Ondansetron HCl 4 mg 01/31/20 16:44 02/04/20 08:44 Zofran Odt PO 4 mg Q6H PRN Administration Nausea/Vomiting Pantoprazole Sodium 40 mg 02/01/20 09:00 02/05/20 08:40 Protonix PO 40 mg DAILY MIKE Administration - Exam General Appearance: NAD, awake alert ENT: moist mucosa Heart: RRR, no murmur, no gallops, no rubs Respiratory: CTAB, no wheezes Gastrointestinal: soft, non-tender, non-distended, normal bowel sounds Psychiatric: normal affect, normal behavior, A&O x 3 Hosp A/P - Plan GI bleeding due to telangectasias in the colon Anemia due to acute blood loss End-stage renal disease on peritoneal dialysis Traumatic subdural hematoma after a fall. 02/01: Status post EGD with no source of active bleeding identified. 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 GI are not planning to repeat colonoscopy without evidence of active bleeding. Hemoglobin slightly dropped since yesterday. No recurrent episodes of bleeding. We will transfuse 1 unit of packed RBCs. CT scan of the head that was repeated earlier this morning showed slightly enlarging subdural hematoma. Keep the patient's blood pressure less than 160 systolic with PRN medications. Repeat CT scan of the head later today. Consult case management for placement. 02/02: Recurrent bleeding. GI consulted. Colonoscopy tomorrow. Transfuse 2 units of PRBCs. Continue PD per nephrology. Repeat CT Head shows stable findings. 02/03: The patient was not able to tolerate GoLYTELY. The prep will be administered through NG tube overnight in anticipation of her colonoscopy tomorrow. Continue to monitor H&H and transfuse as needed. Appreciate GI. 02/04: Status post colonoscopy. The results showed multiple telangiectatic vessels that are likely the source of the bleeding in the proximal colon. Status post APC and biopsies. Continue to monitor H&H. 02/05: H/H stable this morning. Cleared for placement. Awaiting insurance authorization for rehab. Possibly swing bed if denied.
[2020-02-06] MEDS: buPROPion 75 MG TAB PO SCH ×2 (08:38→20:37)
[2020-02-06] MEDS: Citalopram 20 MG TAB PO SCH (08:38)
[2020-02-06] MEDS: Carvedilol 6.25 MG TAB PO SCH ×2 (08:38→20:37)
[2020-02-06] MEDS: Amlodipine 5 MG TAB PO SCH (08:38)
[2020-02-06] MEDS: cloNIDine 0.1 MG TAB PO SCH ×2 (08:39→20:37)
--- NOTE | 2020-02-06 08:41 | PRG ---
DATE OF SERVICE: 02/06/2020 SUBJECTIVE: Ms. Canales is a 74-year-old white female, who was initially admitted for GI bleed. We are following her up for her ESRD as well as maintenance peritoneal dialysis. During this hospitalization, she had fall and developed subdural hematoma, which was small. Neurosurgery has evaluated this and recommendation is simple observation. She also underwent colonoscopy yesterday with Dr. Crawford. Findings of numerous telangiectatic vessels were noted and cauterization was said to have been done. This morning, she voices no new complaints. OBJECTIVE: VITAL SIGNS: Blood pressure 145/49, heart rate 71, respiratory rate 18, temperature 98.1, O2 saturation 93%. GENERAL: Noted to be awake, alert, comfortable, not in overt distress. SKIN: Adequate turgor. HEENT: Pinkish conjunctivae. Anicteric sclerae. No neck mass. No carotid bruits. No JVD. CHEST: No deformities. LUNGS: Clear breath sounds. HEART: Normal sinus rhythm. No murmurs, gallops, or rubs. ABDOMEN: Globular, soft, and nontender. No masses. EXTREMITIES: No edema. No deformities. MEDICATIONS: Medications of February 06, 2020 was reviewed. LABORATORY DATA: February 05, 2020; white count 7.1, hemoglobin 10.9. On February 06, 2020; sodium 141, potassium 4.1, chloride 95, carbon dioxide 24, BUN 56, creatinine 13.3, glucose 197, and calcium 8.3. ASSESSMENT AND PLAN: 1. Status post GI bleed-colonoscopy done, which showed numerous telangiectasias and this was said to have been cauterized. Continue to observe. 2. End-stage renal disease, stable, tolerating current continuous cyclic peritoneal dialysis regimen. No changes will be made with the current peritoneal dialysis regimen. She is tolerating ultrafiltration. 3. Chronic anemia, on weekly Epogen. 4. Agree with current management. Recheck CBC and basic metabolic profile in a.m. Job ID: [id number]
[2020-02-06 09:21] LABS: Hemoglobin 11.3 g/dL (12.0-16.0)
[2020-02-06 09:49] LABS: Eosinophils 4 % (0-10); Hemoglobin 10.5 g/dL (12.0-16.0); Lymphocytes 26 % (21-51); MDiff Complete? YES; Mean Corpuscular HGB CONC 33.1 g/dL (32.0-36.0); Mean Corpuscular Hemoglobin 30.5 pg (27.0-31.0); Mean Corpuscular Volume 92.3 fL (78.0-98.0); Mean Platelet Volume 7.4 fL (7.4-10.4); Monocytes 9 % (0-10); Neutrophil 61 % (42-75); Platelet Count 273 thou/uL (130-400); Platelet Morphology Comment Appears Adequate; RBC Distribution Width 12.1 % (11.5-14.5); Red Blood Cell (RBC) Count 3.43 mill/uL (4.20-5.40); White Blood Cell (WBC) Count 6.9 thou/uL (4.8-10.8)
--- NOTE | 2020-02-06 12:08 | PRG ---
DATE OF SERVICE: 02/06/2020 REASON FOR CONSULTATION: Hematochezia and melena. SUBJECTIVE: The patient underwent colonoscopy yesterday with no immediate postoperative complications nor did she have any abdominal pain this morning. Since the colonoscopy, she has not had any further bowel movements nor has she had any additional episodes of hematochezia. She states that "I feel great." Currently, she denies any nausea, vomiting, fevers, chills, hematemesis, melena, hematochezia, abdominal pain, dysphagia, or odynophagia. OBJECTIVE: VITAL SIGNS: Temperature 98.1, pulse 71, blood pressure 129/71, respiratory rate 18, and saturating 93% on 0.5 L nasal cannula. GENERAL: The patient was sitting in a chair at bedside, in no acute distress. Alert and oriented x3. CARDIOVASCULAR: Regular rate and rhythm, but with a loud S2. RESPIRATORY: Clear to auscultation bilaterally. ABDOMEN: Normoactive bowel sounds. Soft, nontender, and nondistended. EXTREMITIES: No cyanosis, clubbing, or edema. LABORATORY DATA: Hemoglobin of 11.3 and hematocrit 35.1. IMAGING DATA: Colonoscopy was performed on February 05, 2020, which showed a significant amount of blood clot within the cecum in addition to small telangiectatic vessels that were mildly oozing blood. These were intervened upon with argon plasma coagulation with good hemostasis achieved. 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 Hematochezia/bleeding AVMs: The patient was initially admitted to the hospital from the inpatient rehab center with complaints of black stools and weakness. She was noted to have a decrease in her H and H on admission as well, so she underwent EGD on January 31, 2020, which showed a vegetable matter retained between the Schatzki ring and the diaphragmatic pinch, but no overt evidence of active or recent bleeding. Her H and H stabilized shortly after that procedure, but she continued to have hematochezia, approximately 24 to 48 hours later in which case colonoscopy was performed on February 05, 2020, which showed a large amount of blood clot as well as actively using arteriovenous malformations within the cecum. These were intervened upon with argon plasma coagulation with good hemostasis achieved. In the postoperative setting, she has not had any further episodes of hematochezia nor has she had any bowel movements. In addition to up trending of her H and H at this time, making the likelihood of further GI bleeding less so. RECOMMENDATIONS: 1. We would continue to trend her H and H and transfuse as necessary to maintain an H and H of 7/21. 2. Continue to monitor clinically for signs of active GI bleeding. 3. We will continue to avoid any anticoagulation in this patient for the next 48 to 72 hours, then restart if clinically indicated. 4. We would strongly suggest discharging the patient to an inpatient rehab center. 5. Given her stabilization of her H and H and no further episodes of hematochezia, we will sign off at this time. Please call with any additional questions. Job ID: [id number]
[2020-02-06] MEDS: Atorvastatin Calcium 20 MG TAB PO SCH (20:36)
[2020-02-07] MEDS: hydrALAZINE 20 MG/ML VIAL SLOW IVP PRN (00:23)
[2020-02-07] MEDS: Insulin Regular 300 UNITS/3 ML VIAL SC PRN ×2 (05:23→12:46)
[2020-02-07] MEDS: Levothyroxine Sodium 100 MCG TAB PO SCH (05:24)
[2020-02-07 06:10] LABS: Band 3 % (5-11); Hemoglobin 10.6 g/dL (12.0-16.0); Hypochromia SLIGHT = 6-15 cells (100X) (0-5/hpf); Lymphocytes 11 % (21-51); MDiff Complete? YES; Mean Corpuscular HGB CONC 33.1 g/dL (32.0-36.0); Mean Corpuscular Hemoglobin 30.5 pg (27.0-31.0); Mean Corpuscular Volume 92.1 fL (78.0-98.0); Mean Platelet Volume 7.2 fL (7.4-10.4); Monocytes 14 % (0-10); Neutrophil 72 % (42-75); Platelet Count 288 thou/uL (130-400); Platelet Morphology Comment Appears Adequate; RBC Distribution Width 12.1 % (11.5-14.5); Red Blood Cell (RBC) Count 3.49 mill/uL (4.20-5.40); White Blood Cell (WBC) Count 7.2 thou/uL (4.8-10.8)
[2020-02-07 06:23] LABS: Anion Gap 24 mmol/L (10-20); BUN (Urea Nitrogen) 53 mg/dL (9.8-20.1); Calc. Creatinine Clearance 4 mL/min (70-130); Calcium 8.2 mg/dL (7.8-10.44); Carbon Dioxide 26 mmol/L (23-31); Chloride 95 mmol/L (98-107); Estimated GFR-MDRD 3; Glucose 195 mg/dL (83-110); Potassium 3.8 mmol/L (3.5-5.1); Sodium 141 mmol/L (136-145)
--- NOTE | 2020-02-07 08:09 | PDOC.HOSPP ---
- Subjective Encounter Date: 02/07/20 Encounter Time: 11:00 Subjective: Patient with some mild nausea this AM. Not eating great. Mild smear BM yesterday without blood. Hasn't eaten well since colonoscopy. - Objective Vital Signs & Weight: Vital Signs (12 hours) Temp Pulse Resp BP BP BP Pulse Ox 02/07/20 07:46 98.6 F 74 18 160/73 H 93 L 02/07/20 04:00 98.4 F 73 18 129/54 L 92 L 02/07/20 01:42 140/77 02/07/20 00:23 69 02/06/20 23:48 98.1 F 69 20 165/75 H 92 L 02/06/20 20:37 154/69 H Weight Admit Weight 165 lb Weight 165 lb 1.6 oz I&O: 02/06/20 02/07/20 02/08/20 06:59 06:59 06:59 Intake Total 100 1080 Balance 100 1080 Result Diagrams: 02/07/20 05:15 02/07/20 05:15 Additional Labs: Accuchecks 02/07/20 02/06/20 02/06/20 04:57 19:39 17:02 POC Glucose 197 H 159 H 162 H 02/06/20 11:29 POC Glucose 273 H Hospitalist ROS - Review of Systems Constitutional: denies: fever, chills Respiratory: denies: cough, shortness of breath Cardiovascular: denies: chest pain, palpitations Gastrointestinal: reports: nausea. denies: vomiting, abdominal pain, diarrhea, constipation Genitourinary: denies: dysuria Neurological: reports: weakness - Medication Medications: Active Medications Generic Name Dose Route Start Last Admin Trade Name Freq PRN Reason Stop Dose Admin Acetaminophen 500 mg 02/03/20 16:52 02/05/20 08:43 Tylenol PO 500 mg Q6H PRN Administration Headache/Fever or Pain Amlodipine Besylate 5 mg 02/01/20 09:00 02/06/20 08:38 Norvasc PO 5 mg DAILY MIKE Administration Atorvastatin Calcium 20 mg 01/31/20 21:00 02/06/20 20:36 Lipitor PO 20 mg HS MIKE Administration Bupropion HCl 75 mg 01/31/20 21:00 02/06/20 20:37 Wellbutrin PO 75 mg BID MIKE Administration Carvedilol 12.5 mg 01/31/20 21:00 02/06/20 20:37 Coreg PO 12.5 mg BID MIKE Administration Citalopram Hydrobromide 40 mg 02/01/20 09:00 02/06/20 08:38 Celexa PO 40 mg DAILY MIKE Administration Clonidine 0.1 mg 01/31/20 21:00 02/06/20 20:37 Catapres PO 0.1 mg BID MIKE Administration Epoetin Jeff-epbx 7,500 unit 02/01/20 12:00 02/01/20 15:46 Retacrit SC 7,500 unit Q7D MIKE Administration Hydralazine HCl 10 mg 02/01/20 22:26 02/07/20 00:23 Apresoline SLOW IVP 10 mg Q4H PRN Administration SBP > 150 Insulin Human Lispro 0 units 02/04/20 21:46 02/05/20 20:12 Humalog SC 2 unit .BEDTIME SLIDING SC PRN Administration Bedtime Correctional Scale Insulin Human Regular 0 units 02/03/20 17:19 02/07/20 05:23 Humulin R SC 2 unit .MODERATE SLIDING SC PRN Administration MODERATE SLIDING SCALE Protocol Isosorbide Mononitrate 30 mg 02/01/20 09:00 02/06/20 08:39 Imdur Er PO 30 mg DAILY [facility] Administration Labetalol HCl 10 mg 02/02/20 09:59 02/04/20 04:50 Normodyne SLOW IVP 10 mg Q6H PRN Administration SBP >150 (2ND LINE) Levothyroxine Sodium 100 mcg 02/01/20 06:00 02/07/20 05:24 Synthroid PO 100 mcg 0600 [facility] Administration Ondansetron HCl 4 mg 01/31/20 16:44 02/04/20 08:44 Zofran Odt PO 4 mg Q6H PRN Administration Nausea/Vomiting Pantoprazole Sodium 40 mg 02/01/20 09:00 02/06/20 08:39 Protonix PO 40 mg DAILY MIKE Administration - Exam General Appearance: NAD, awake alert ENT: moist mucosa Heart: RRR, no murmur, no gallops, no rubs Respiratory: CTAB, no wheezes, no rales, no ronchi Gastrointestinal: soft, non-tender, non-distended, normal bowel sounds Psychiatric: normal behavior, A&O x 3 Psychiatric - other findings: mildly depressed appearing Hosp A/P - Plan GI bleeding due to telangectasias in the colon Anemia due to acute blood loss End-stage renal disease on peritoneal dialysis Traumatic subdural hematoma after a fall. 02/01: Status post EGD with no source of active bleeding identified. 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 GI are not planning to repeat colonoscopy without evidence of active bleeding. Hemoglobin slightly dropped since yesterday. No recurrent episodes of bleeding. We will transfuse 1 unit of packed RBCs. CT scan of the head that was repeated earlier this morning showed slightly enlarging subdural hematoma. Keep the patient's blood pressure less than 160 systolic with PRN medications. Repeat CT scan of the head later today. Consult case management for placement. 02/02: Recurrent bleeding. GI consulted. Colonoscopy tomorrow. Transfuse 2 units of PRBCs. Continue PD per nephrology. Repeat CT Head shows stable findings. 02/03: The patient was not able to tolerate GoLYTELY. The prep will be administered through NG tube overnight in anticipation of her colonoscopy tomorrow. Continue to monitor H&H and transfuse as needed. Appreciate GI. 02/04: Status post colonoscopy. The results showed multiple telangiectatic vessels that are likely the source of the bleeding in the proximal colon. Status post APC and biopsies. Continue to monitor H&H. 02/06: H/H stable this morning. Cleared for placement. Awaiting insurance authorization for rehab. Possibly swing bed if denied. Encouraged patient to eat well and work hard with PT daily to work toward getting home.
[2020-02-07] MEDS: Carvedilol 6.25 MG TAB PO SCH ×2 (08:26→21:45)
[2020-02-07] MEDS: buPROPion 75 MG TAB PO SCH ×2 (08:26→21:45)
[2020-02-07] MEDS: cloNIDine 0.1 MG TAB PO SCH ×2 (08:26→21:45)
[2020-02-07] MEDS: Amlodipine 5 MG TAB PO SCH (08:27)
[2020-02-07] MEDS: Citalopram 20 MG TAB PO SCH (08:27)
--- NOTE | 2020-02-07 08:40 | PRG ---
DATE OF SERVICE: 02/07/2020 SUBJECTIVE: Ms. Canales is a 74-year-old white female with ESRD and currently on maintenance CCPD. She underwent colonoscopy two days ago with finding of some bleeders, which was cauterized. She is doing better. No other complaints today. No chest pain or shortness of breath. She is tolerating her peritoneal dialysis. OBJECTIVE: VITAL SIGNS: Blood pressure is 160/73 with a heart rate of 74, respiratory rate 18, temperature 98.6, and O2 saturation 93%. GENERAL: The patient is noted to be awake, alert, comfortable, not in distress. SKIN: Adequate turgor. HEENT: Pinkish conjunctivae. Anicteric sclerae. NECK: No neck mass. No carotid bruits. No JVD. CHEST: No deformities. LUNGS: Clear breath sounds. No wheezing. No crackles. HEART: Normal sinus rhythm. No murmur. No gallops. No rubs. ABDOMEN: Globular, soft, nontender. No masses. Positive for PD catheter. EXTREMITIES: No edema. No deformities. MEDICATIONS: Medications of February 07, 2020, were reviewed. LABORATORY DATA: Laboratories of February 07, 2020, white count 7.2, hemoglobin 10.6. Sodium 141, potassium 3.8, chloride 95, carbon dioxide 26, BUN 53, creatinine 13.4, glucose 195, and calcium 8.2. ASSESSMENT AND PLAN: 1. End-stage renal disease, stable. We will continue current CCPD regimen, tolerating fluid removal. No changes will be made with the current peritoneal dialysis. 2. Anemia-continue weekly Epogen. 3. Status post colonoscopy with cauterization of numerous telangiectasias. H and H holding steady. 4. Agree with current management. Job ID: [id number]
[2020-02-07] MEDS: Atorvastatin Calcium 20 MG TAB PO SCH (21:45)
[2020-02-08] MEDS: Levothyroxine Sodium 100 MCG TAB PO SCH (06:04)
[2020-02-08] MEDS: Insulin Regular 300 UNITS/3 ML VIAL SC PRN (06:05)
[2020-02-08 06:38] LABS: #Eosinphils 0.2 thou/uL (0.0-0.7); #Lymphocytes 1.7 thou/uL (1.20-3.40); #Monocytes 0.8 thou/uL (0.11-0.59); #Neutrophils 3.9 thou/uL (1.40-6.50); %Basophils 0.4 % (0.0-1.0); %Eosinophils 2.9 % (0.0-10.0); %Lymphocytes 25.5 % (21.0-51.0); %Monocytes 11.4 % (0.0-10.0); %Neutrophils 59.7 % (42.0-75.0); Hemoglobin 10.6 g/dL (12.0-16.0); Mean Corpuscular HGB CONC 33.6 g/dL (32.0-36.0); Mean Corpuscular Hemoglobin 30.8 pg (27.0-31.0); Mean Corpuscular Volume 91.6 fL (78.0-98.0); Mean Platelet Volume 6.8 fL (7.4-10.4); Platelet Count 274 thou/uL (130-400); RBC Distribution Width 12.2 % (11.5-14.5); Red Blood Cell (RBC) Count 3.45 mill/uL (4.20-5.40); White Blood Cell (WBC) Count 6.5 thou/uL (4.8-10.8)
[2020-02-08 07:02] LABS: Anion Gap 23 mmol/L (10-20); BUN (Urea Nitrogen) 50 mg/dL (9.8-20.1); Calc. Creatinine Clearance 4 mL/min (70-130); Calcium 8.3 mg/dL (7.8-10.44); Carbon Dioxide 26 mmol/L (23-31); Chloride 95 mmol/L (98-107); Estimated GFR-MDRD 3; Glucose 164 mg/dL (83-110); Potassium 3.9 mmol/L (3.5-5.1); Sodium 140 mmol/L (136-145)
[2020-02-08 07:37] VITALS: TEMP 98.3
--- NOTE | 2020-02-08 07:48 | PDOC.HOSPP ---
- Subjective Encounter Date: 02/08/20 Encounter Time: 09:50 Subjective: Patient sad and depressed about her lack of progress. No specific complaints. - Objective Vital Signs & Weight: Vital Signs (12 hours) Temp Pulse Resp BP BP BP Pulse Ox 02/08/20 07:34 98.3 F 74 17 181/66 H 93 L 02/08/20 04:00 97.8 F 72 18 141/70 H 93 L 02/08/20 00:00 98.2 F 74 18 135/60 92 L 02/07/20 21:45 154/69 H 02/07/20 21:43 98.7 F 74 18 141/57 H 93 L Weight Admit Weight 165 lb Weight 165 lb 1.6 oz I&O: 02/07/20 02/08/20 02/09/20 06:59 06:59 06:59 Intake Total 1080 885 Balance 1080 885 Result Diagrams: 02/08/20 06:27 02/08/20 06:27 Additional Labs: Accuchecks 02/08/20 02/07/20 02/07/20 00:36 20:32 17:33 POC Glucose 172 H 142 H 108 02/07/20 02/07/20 16:42 11:44 POC Glucose 58 L* 201 H Hospitalist ROS - Review of Systems Constitutional: denies: fever, chills Respiratory: denies: cough, shortness of breath Cardiovascular: denies: chest pain, palpitations Gastrointestinal: denies: nausea, vomiting, abdominal pain - Medication Medications: Active Medications Generic Name Dose Route Start Last Admin Trade Name Freq PRN Reason Stop Dose Admin Acetaminophen 500 mg 02/03/20 16:52 02/05/20 08:43 Tylenol PO 500 mg Q6H PRN Administration Headache/Fever or Pain Amlodipine Besylate 5 mg 02/01/20 09:00 02/07/20 08:27 Norvasc PO 5 mg DAILY MIKE Administration Atorvastatin Calcium 20 mg 01/31/20 21:00 02/07/20 21:45 Lipitor PO 20 mg HS MIKE Administration Bupropion HCl 75 mg 01/31/20 21:00 02/07/20 21:45 Wellbutrin PO 75 mg BID MIKE Administration Carvedilol 12.5 mg 01/31/20 21:00 02/07/20 21:45 Coreg PO 12.5 mg BID MIKE Administration Citalopram Hydrobromide 40 mg 02/01/20 09:00 02/07/20 08:27 Celexa PO 40 mg DAILY MIKE Administration Clonidine 0.1 mg 01/31/20 21:00 02/07/20 21:45 Catapres PO 0.1 mg BID MIKE Administration Epoetin Jeff-epbx 7,500 unit 02/01/20 12:00 02/01/20 15:46 Retacrit SC 7,500 unit Q7D MIKE Administration Hydralazine HCl 10 mg 02/01/20 22:26 02/07/20 00:23 Apresoline SLOW IVP 10 mg Q4H PRN Administration SBP > 150 Insulin Human Lispro 0 units 02/04/20 21:46 02/05/20 20:12 Humalog SC 2 unit .BEDTIME SLIDING SC PRN Administration Bedtime Correctional Scale Insulin Human Regular 0 units 02/03/20 17:19 02/08/20 06:05 Humulin R SC 2 unit .MODERATE SLIDING SC PRN Administration MODERATE SLIDING SCALE Protocol Isosorbide Mononitrate 30 mg 02/01/20 09:00 02/07/20 08:26 Imdur Er PO 30 mg DAILY MIKE Administration Labetalol HCl 10 mg 02/02/20 09:59 02/04/20 04:50 Normodyne SLOW IVP 10 mg Q6H PRN Administration SBP >150 (2ND LINE) Levothyroxine Sodium 100 mcg 02/01/20 06:00 02/08/20 06:04 Synthroid PO 100 mcg 0600 [facility] Administration Ondansetron HCl 4 mg 01/31/20 16:44 02/04/20 08:44 Zofran Odt PO 4 mg Q6H PRN Administration Nausea/Vomiting Pantoprazole Sodium 40 mg 02/01/20 09:00 02/07/20 08:27 Protonix PO 40 mg DAILY [facility] Administration - Exam General Appearance: NAD, awake alert ENT: moist mucosa Heart: RRR, no murmur, no gallops, no rubs Respiratory: CTAB, no wheezes, no rales, no ronchi Gastrointestinal: soft, non-tender, non-distended, normal bowel sounds Psychiatric: normal behavior, A&O x 3 Psychiatric - other findings: depressed affect Hosp A/P - Plan GI bleeding due to telangectasias in the colon Anemia due to acute blood loss End-stage renal disease on peritoneal dialysis Traumatic subdural hematoma after a fall. 02/01: Status post EGD with no source of active bleeding identified. 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 GI are not planning to repeat colonoscopy without evidence of active bleeding. Hemoglobin slightly dropped since yesterday. No recurrent episodes of bleeding. We will transfuse 1 unit of packed RBCs. CT scan of the head that was repeated earlier this morning showed slightly enlarging subdural hematoma. Keep the patient's blood pressure less than 160 systolic with PRN medications. Repeat CT scan of the head later today. Consult case management for placement. 02/02: Recurrent bleeding. GI consulted. Colonoscopy tomorrow. Transfuse 2 units of PRBCs. Continue PD per nephrology. Repeat CT Head shows stable findings. 02/03: The patient was not able to tolerate GoLYTELY. The prep will be administered through NG tube overnight in anticipation of her colonoscopy tomorrow. Continue to monitor H&H and transfuse as needed. Appreciate GI. 02/04: Status post colonoscopy. The results showed multiple telangiectatic vessels that are likely the source of the bleeding in the proximal colon. Status post APC and biopsies. Continue to monitor H&H. 02/06: H/H stable this morning. Cleared for placement. Awaiting insurance authorization for rehab. Possibly swing bed if denied. Encouraged patient to eat well and work hard with PT daily to work toward getting home. 02/07: Dr. Nicole approved patient for [facility]. [employer] just gave authorization. H /H remains stable. D/C to rehab.
[2020-02-08] MEDS: buPROPion 75 MG TAB PO SCH (08:51)
[2020-02-08] MEDS: cloNIDine 0.1 MG TAB PO SCH (08:51)
[2020-02-08] MEDS: Citalopram 20 MG TAB PO SCH (08:51)
[2020-02-08] MEDS: Carvedilol 6.25 MG TAB PO SCH (08:51)
[2020-02-08] MEDS: Amlodipine 5 MG TAB PO SCH (08:52)
--- NOTE | 2020-02-08 09:38 | PRG ---
DATE OF SERVICE: 02/08/2020 SUBJECTIVE: Ms. Canales is a 74-year-old white female with ESRD and currently on CCPD. She underwent peritoneal dialysis last night without any difficulty. She was admitted for GI bleed. She has undergone a colonoscopy with cauterization. There were findings of telangiectasias. She is doing better. No new complaints. The patient denies any chest pain or shortness of breath. OBJECTIVE: VITAL SIGNS: Blood pressure is 154/75, heart rate 74, respiratory rate 17, temperature 98.3, O2 saturation 93%. GENERAL: The patient is awake, alert, comfortable, not in distress. SKIN: Adequate turgor. HEENT: Pinkish conjunctivae. Anicteric sclerae. No neck mass. No carotid bruits. No JVD. CHEST: No deformities. LUNGS: Clear breath sounds. No wheezing. No crackles. HEART: Normal sinus rhythm. No murmurs, gallops, or rubs. ABDOMEN: Globular, soft, nontender. No masses. Positive for PD catheter. EXTREMITIES: No edema. MEDICATIONS: Medication of February 08, 2020, was reviewed. LABORATORY DATA: Laboratories of February 08, 2020, white count 6.5, hemoglobin 10.6, hematocrit 31.6. Sodium 140, potassium 3.9, chloride 95, carbon dioxide 26, BUN 50, creatinine 13.34, glucose 164, calcium 8.3. ASSESSMENT AND PLAN: 1. End-stage renal disease, stable. We will continue current CCPD regimen, tolerating current peritoneal dialysis. No changes to be made. 2. Anemia, stable. Continue weekly Epogen. 3. Status post gastrointestinal bleed, status post colonoscopy with cauterization of telangiectasias holding steady. 4. Awaiting placement. Agree with current management. Job ID: [id number]
[2020-02-08 11:33] VITALS: BP 155/74
--- NOTE | 2020-02-09 01:12 | DIS ---
DATE OF ADMISSION: 01/31/2020 DATE OF DISCHARGE: 02/08/2020 PRIMARY CARE PHYSICIAN: Nanette Gutierrez MD REASON FOR ADMISSION: Melena. DISCHARGE DIAGNOSES: 1. Gastrointestinal bleed due to telangiectasias of the colon, resolved. 2. Anemia due to acute blood loss. 3. End-stage renal disease, on peritoneal dialysis. 4. Traumatic subdural hematoma after a fall. 5. Debilitation. PROCEDURES PERFORMED: 1. EGD showing vegetable matter retained in the hiatal hernia, melanosis of the 1st and 2nd portions of the duodenum, which was mild, and duodenal diverticulum of the 2nd portion of the duodenum without any active bleeding. 2. CT of the brain without contrast showing a very slight interval enlargement of the extra-axial hemorrhage overlying the right frontal convexity. 3. Repeat CT scan showing a stable subdural hematoma without any enlargement. 4. X-ray of the abdomen showing a properly placed enteric catheter. 5. Colonoscopy with biopsy and polypectomy showing numerous telangiectatic vessels with surrounding mucosal erythema and mild colitis in the cecum and proximal ascending colon, mild sigmoid diverticulosis and small nonbleeding internal hemorrhoids. CONSULTATIONS: 1. Gastroenterology, Dr. Christiansen and Dr. Crawford. 2. Nephrology, Dr. Ta. 3. Neurosurgery, MARÍA Collado. SUMMARY OF HOSPITAL COURSE: This is a 74-year-old female with a past medical history of CHF, hypothyroidism, kidney stones, pernicious anemia, hypertension, skin cancer, and end-stage renal disease on peritoneal dialysis, who was sent over from [facility] for dark stools over the past 3 days, also found to be anemic and required a transfusion prior to transfer to the ER, was having dizziness and malaise. The patient had some continued bleeding during her hospitalization. She had EGD and eventually colonoscopy with results as above. Her bleeding did eventually stop and was stable for discharge. The patient did have a fall due to her debilitation and weakness with subdural hematoma with minimal bleeding as per the radiology reports and Neurosurgery recommended following up as an outpatient and that they would arrange and schedule follow up for her in about four weeks. The patient had slow progress with physical therapy during her hospitalization and she wanted to go home, but was determined to be too weak to do that safely and so, she is being sent to inpatient rehab for further physical therapy. DISCHARGE MANAGEMENT: Discharged to [facility]. ACTIVITY: As tolerated. DIET: Healthy heart, renal diet. THERAPY: Occupational and physical therapy. ADDITIONAL INSTRUCTIONS: Peritoneal dialysis as per Dr. Ta. FOLLOWUP: Follow up with Dr. Christiansen as an outpatient, with Dr. Ta as directed, and with Dr. Gutierrez after getting out of rehab, and follow up with Neurosurgery as they direct. DISCHARGE MEDICATIONS: 1. Acetaminophen as needed. 2. Albuterol as needed. 3. Amlodipine 5 mg daily. 4. Atorvastatin 20 mg at night. 5. Wellbutrin 75 mg twice a day. 6. Carvedilol 12.5 mg twice a day. 7. Vitamin D3 of 1000 units daily. 8. Citalopram 40 mg daily. 9. Clonidine 0.1 mg twice a day. 10. Aranesp 25 mcg to 2 weeks. 11. 7500 units subcu q.7 days. 12. Ferrous sulfate 325 mg twice a day. 13. Isosorbide mononitrate 30 mg daily. 14. Levothyroxine 100 mcg daily. 15. Megace 40 mg daily. 16. Multivitamin daily. 17. Zofran as needed. 18. Protonix 40 mg daily. TIME SPENT: Arranging the details of this discharge took 35 minutes. Job ID: [id number]
== END 2020-02-08 12:45 | DRG 377 ==
LOC: ERS 12:45 → OBSVTOIN 15:50 → T4-A 15:50 → 2SE 02-02 00:54 → T4-A 02-06 15:18
PROVIDERS: ADMIT Internal Medicine; ATTEND Internal Medicine
PROC: 30233N1 Transfusion of Nonautologous Red Blood Cells into Peripheral Vein, Percutaneous Approach (ICD-10-PCS; 2020-01-31)
PROC: 3E1M39Z Irrigation of Peritoneal Cavity using Dialysate, Percutaneous Approach (ICD-10-PCS; 2020-02-01)
PROC: 0DJ08ZZ Inspection of Upper Intestinal Tract, Via Natural or Artificial Opening Endoscopic (ICD-10-PCS; principal; 2020-02-05)
PROC: 0DBK8ZX Excision of Ascending Colon, Via Natural or Artificial Opening Endoscopic, Diagnostic (ICD-10-PCS; 2020-02-05)
PROC: 0DBH8ZX Excision of Cecum, Via Natural or Artificial Opening Endoscopic, Diagnostic (ICD-10-PCS; 2020-02-05)
PROC: 0W3P8ZZ Control Bleeding in Gastrointestinal Tract, Via Natural or Artificial Opening Endoscopic (ICD-10-PCS; 2020-02-05)
DX: K55.21 Angiodysplasia of colon with hemorrhage (principal); N18.6 End stage renal disease; S06.5X0A Traumatic subdural hemorrhage without loss of consciousness, initial encounter; D62 Acute posthemorrhagic anemia; I50.32 Chronic diastolic (congestive) heart failure; I13.2 Hypertensive heart and chronic kidney disease with heart failure and with stage 5 chronic kidney disease, or end stage renal disease; R53.81 Other malaise; E03.9 Hypothyroidism, unspecified; F32.9 Major depressive disorder, single episode, unspecified; K44.9 Diaphragmatic hernia without obstruction or gangrene; K22.2 Esophageal obstruction; K63.89 Other specified diseases of intestine; K57.30 Diverticulosis of large intestine without perforation or abscess without bleeding; K64.8 Other hemorrhoids; D63.1 Anemia in chronic kidney disease; C44.90 Unspecified malignant neoplasm of skin, unspecified; Y92.239 Unspecified place in hospital as the place of occurrence of the external cause; W18.30XA Fall on same level, unspecified, initial encounter; Z90.49 Acquired absence of other specified parts of digestive tract; Z87.442 Personal history of urinary calculi; Z88.0 Allergy status to penicillin; Z99.2 Dependence on renal dialysis; Z88.8 Allergy status to other drugs, medicaments and biological substances; Z90.710 Acquired absence of both cervix and uterus; Z87.01 Personal history of pneumonia (recurrent)
CPT/HCPCS: 36415; 36416; 36430; 70450; 74018; 80048; 80053; 82274; 85007; 85014; 85018; 85025; 85027; 85610; 85730; 86850; 86870; 86900; 86901; 86904; 86922; 87340; 88305; 90945; 93005; 96374; C9113; G0257; G0378; J0360; J1815; J2001; J2704; J3010; P9016; Q0162; Q5105

== ENCOUNTER 2020-03-05 14:04 | Inpatient (IN) | payer MEDICARE, OTHER ==
[2020-03-05] MEDS ORDERED: HYDROcodone/Acetaminophen 7.5/325 mg Tablet PO PRN (16:41)
[2020-03-05] MEDS ORDERED: Ondansetron ODT 4 MG TAB PO PRN (16:41)
[2020-03-05] MEDS ORDERED: Loperamide HCl 2 MG CAP PO PRN (16:41)
[2020-03-05] MEDS ORDERED: Acetaminophen 325 MG TAB PO PRN (16:41)
[2020-03-05] MEDS ORDERED: HYDROcodone/Acetaminophen 5/325 mg Tablet PO PRN (16:41)
[2020-03-05] MEDS ORDERED: Ondansetron PF 4 MG/2 ML Vial IVP PRN (16:41)
--- NOTE | 2020-03-05 17:40 | PDOC.HHP ---
Hospitalist HPI - History of Present Illness AMS, low blood sugar History of Present Illness: 74-year-old female with past medical history of end-stage renal disease on peritoneal dialysis, DM, CHF, Skin CA, subdural hematoma, hypothyroidism, hypertension, hyperlipidemia, who has been diagnosed with dementia in the past presents with altered mental status. I find the patient on the medical unit with nursing staff at bedside, she is currently alert and oriented times one and is unable to provide much significant history. The patient's only complaints at this time is that she is feeling cold. Patient does not know the events that transpired today and asked me to talk to her family. I discuss the case at length with her son Gerber over the phone who tells me that she was at [facility] today having peritoneal dialysis fluid analyzed when in the office she was found have a blood sugar in the 30s and was altered. At this point EMS was called and she was taken to [facility], she was then transferred to [facility] for higher level of care. While at [place] the patient's does endorse some black stools over the past several days and she was found to be anemic. The patient's and son to deny bright red stools, no vomiting blood or black material. Patient admitted to the medical unit with consultations requested to gastroenterology and nephrology for further recommendations. Hospitalist ROS - Review of Systems All other systems reviewed; all pertinent +/- noted in HPI/Subj Hospitalist History - Past Medical History Source: patient, family, old records Cardiac: reports: CHF, HTN, Hyperlipidemia Renal/: reports: Chronic renal failure Endocrine: reports: Diabetes, Hypothyroidism - Past Surgical History Past Surgical History: reports: Appendectomy, Cholecystectomy, Hysterectomy, Tonsillectomy - Family History Family History: reports: hypertension - Social History Smoking Status: Unknown if ever smoked Alcohol: reports: None Drugs: reports: none Living Situation: With Family Domestic Violence: Negative Activity level: bed bound - Exam General Appearance: NAD Eye: PERRL, anicteric sclera ENT: normocephalic atraumatic, moist mucosa Neck: supple, symmetric, no lymphadenopathy Heart: no murmur, no gallops, no rubs Respiratory: CTAB, no wheezes, no rales, no ronchi, normal chest expansion, no tachypnea Gastrointestinal: soft, non-tender, no guarding, no rigidity Extremities: no edema Skin: no lesions, no rashes Neurological: cranial nerve grossly intact, no focal deficits Musculoskeletal: generalized weakness Psychiatric: oriented to person, flat affect. negative: normal behavior, oriented to place, oriented to time Hospitalist Results - Radiology Interpretation CT scan - head Status: image reviewed by de Hospitalist H&P A/P - Problem (1) Acute on chronic diastolic ACC/AHA stage C congestive heart failure Code(s): I50.33 - ACUTE ON CHRONIC DIASTOLIC (CONGESTIVE) HEART FAILURE Status : Acute (2) Acute respiratory failure with hypoxia Code(s): J96.01 - ACUTE RESPIRATORY FAILURE WITH HYPOXIA Status: Acute (3) Acute worsening of stage 4 chronic kidney disease Code(s): N18.4 - CHRONIC KIDNEY DISEASE, STAGE 4 (SEVERE) Status: Acute (4) Altered mental status Code(s): R41.82 - ALTERED MENTAL STATUS, UNSPECIFIED Status: Acute (5) Hypoxia Code(s): R09.02 - HYPOXEMIA Status: Acute (6) Anemia, normocytic normochromic Code(s): D64.9 - ANEMIA, UNSPECIFIED Status: Chronic (7) Anxiety and depression Code(s): F41.9 - ANXIETY DISORDER, UNSPECIFIED; F32.9 - MAJOR DEPRESSIVE DISORDER, SINGLE EPISODE, UNSPECIFIED Status: Chronic (8) DM2 (diabetes mellitus, type 2) Status: Chronic (9) ESRD (end stage renal disease) on dialysis Code(s): N18.6 - END STAGE RENAL DISEASE; Z99.2 - DEPENDENCE ON RENAL DIALYSIS Status: Chronic (10) GERD (gastroesophageal reflux disease) Code(s): K21.9 - GASTRO-ESOPHAGEAL REFLUX DISEASE WITHOUT ESOPHAGITIS Status: Chronic Qualifiers: (11) HTN (hypertension) Code(s): I10 - ESSENTIAL (PRIMARY) HYPERTENSION Status: Chronic (12) Hyperlipidemia Code(s): E78.5 - HYPERLIPIDEMIA, UNSPECIFIED Status: Chronic Qualifiers: (13) Hypothyroidism Code(s): E03.9 - HYPOTHYROIDISM, UNSPECIFIED Status: Chronic Qualifiers: (14) Moderate tricuspid regurgitation by prior echocardiogram Code(s): I07.1 - RHEUMATIC TRICUSPID INSUFFICIENCY Status: Chronic (15) Obesity (BMI 30.0-34.9) Code(s): E66.9 - OBESITY, UNSPECIFIED Status: Chronic - Plan Plan: Plan: Admit to medical unit gastroenterology consultation, recommendations appreciated nephrology consultation, recommendations appreciated Palliative care consultation, recommendations appreciated protonic's IV 40 mg b.i.d. monitor for overt G.I. bleeding transfuse packed red blood cells for hemoglobin less than 7.0 peritoneal dialysis per nephrology CT scan of the head short acting insulin for glucose control blood pressure control continue other home medications as able G.I. prophylaxis DVT prophylaxis PT/OT evaluation treatment Disposition: Patient is full code, goals of care to be addressed.
--- NOTE | 2020-03-05 17:46 | CT ---
CT HEAD WITHOUT IV CONTRAST COMPARISON: 02/14/2020 HISTORY: Altered mental status. TECHNIQUE: Axial CT imaging at 5 mm intervals from vertex through skull base without contrast FINDINGS: There is decreased attenuation in the periventricular white matter which is nonspecific but likely re flective of chronic small vessel ischemic changes. There is mild cerebral volume loss. The ventricular system is normal in size, shape, and position for the degree of sulcal atrophy. There is no evidence of an acute infarction, hemorrhage, mass effect, or midline shift. Previously noted tiny right subdural collection is not evident on this examination compatible with co ntinued evolutionary changes in blood products. There are stable remote lacunar infarctions in each basal ganglia with stable areas of encephalomalacia in the inferior aspect of each inferior anterior frontal lobe. Subtle low-density focus is seen in the left aspect of the amanda. This could potentially be artifactual as this is only seen on a single slice selection. However, a small lacunar infarction of indeterminate age could not be excluded. Osseous structures appear intact. No other interval change. IMPRESSION: 1. Subtle subcentimeter low-density focus in the left aspect of the amanda. While this could be related to artifact, a small lacunar infarction of indeterminate age is a possibility. This was not present on prior exam. 2. Chronic small vessel ischemic changes and cerebral volume loss. 3. Resolution of right subdural hemorrhage. No intraparenchymal or extra-axial hemorrhage is identifi ed on this exam.
--- NOTE | 2020-03-05 17:50 | RAD ---
EXAM: CHEST ONE VIEW HISTORY: Shortness of breath COMPARISON: 01/25/2020 FINDINGS: Cardiac silhouette is magnified by projection but unchanged in size. Pulmonary vasculature is within normal limits. There has been interval resolution of the interstitial opacities when compared to the prior exam. Minimal linear densities are seen in the right midlung zone and at the left lung base which may be related to minimal areas of scarring. There is slight blunting of the right lateral costophrenic angle suggesting tiny right pleural effusion. Postoperative changes right shoulder are a gain seen with degenerative changes in the spine. IMPRESSION: 1. Small right pleural effusion. 2. Probable mild scarring in the right midlung zone and left lung base. 3. Resolution of perihilar interstitial opacities which may related to resolution of pulmonary edema or infectious process.
[2020-03-05] MEDS ORDERED: Melatonin 3 MG TAB PO PRN (17:53)
[2020-03-05] MEDS ORDERED: Docusate 100 MG CAP PO PRN (17:53)
[2020-03-05] MEDS ORDERED: diphenhydrAMINE 25 MG CAP PO PRN (17:53)
[2020-03-05] MEDS ORDERED: Benzonatate 100 MG CAP PO PRN (17:53)
[2020-03-05] MEDS: Albuterol Sulfate 1.25 MG/3 ML NEB NEB SCH ×2 (18:16→22:19)
[2020-03-05 19:06] VITALS: BMI 28.3
[2020-03-05 19:33] LABS: Bacteria/HPF 4+ HPF (None Seen); Bilirubin Negative (Negative); Blood, Urine 2+ (Negative); Clarity Extra Turbid (Clear); Glucose, Urine (Dipstick) Normal (Negative); Ketone, Urine Negative (Negative); Leukocyte 500 Leu/uL (Negative); Nitrite Negative (Negative); Protein, Urine (Dipstick) 200 mg/dL (Neg-Trace); RBC/HPF 21-50 HPF (0-3); Specific Gravity, Urine 1.012 (1.002-1.036); Squamous Epithelial 0-3 HPF (0-3); Transitional Epithelial 0-3 HPF (None Seen); Urobilinogen Normal mg/dL (Less than 2); WBC/HPF Greater than 50 HPF (0-3)
[2020-03-05 19:35] LABS: Urine Culture Reflex Yes Yes
[2020-03-05] MEDS ORDERED: Dextrose 50% Abboject 50 ML SYRINGE SLOW IVP PRN (20:33)
[2020-03-05] MEDS ORDERED: Dextrose 5% in Water 1,000 ML IV PRN (20:33)
[2020-03-05] MEDS ORDERED: HumaLOG 300 UNITS/3 ML VIAL SC PRN (20:33)
[2020-03-05] MEDS ORDERED: EPOETIN ALFA-EPBX (ESRD) 4,000 UNIT/ML VIAL SC SCH (21:00)
[2020-03-05] MEDS: cloNIDine 0.1 MG TAB PO SCH (21:23)
[2020-03-05] MEDS: Ferrous Sulfate 325 MG TAB PO SCH (21:24)
[2020-03-05] MEDS: Pantoprazole 40 MG VIAL IVP SCH (21:24)
[2020-03-05] MEDS: Carvedilol 25 MG TAB PO SCH (21:24)
[2020-03-05] MEDS: HumaLOG 300 UNITS/3 ML VIAL SC PRN (21:25)
--- NOTE | 2020-03-05 23:41 | ULT ---
BILATERAL CAROTID DUPLEX ULTRASOUND: HISTORY: CVA TECHNIQUE: Grayscale, color-flow and spectral Doppler ultrasound imaging of the extracranial carotid artery syst ems was performed bilaterally. FINDINGS: There is mild calcified atherosclerotic plaque seen in region of the carotid bulbs and proximal inter nal carotid arteries bilaterally. There is no hemodynamically significant stenosis in the bilateral internal carotid arteries according to the peak systolic velocities and the ICA/CCA ratios. The peak systolic velocity in the right ICA measures 77 cm/s. The peak systolic velocity in the left ICA measures 69.9 cm/s. The right ICA/ CCA ratio is 0.83, and the left ICA/CCA ratio is 0.9. Vertebral arteries: Antegrade flow is demonstrated in the vertebral arteries bilaterally. IMPRESSION: No hemodynamically significant stenosis in the bilateral internal carotid arteries.
[2020-03-06] MEDS: Albuterol Sulfate 1.25 MG/3 ML NEB NEB SCH ×6 (02:51→23:35)
[2020-03-06] MEDS: Levothyroxine Sodium 100 MCG TAB PO SCH (05:07)
[2020-03-06] MEDS: Labetalol HCl 100 MG/20 ML VIAL SLOW IVP PRN (05:52)
[2020-03-06 06:17] LABS: #Eosinphils 0.1 thou/uL (0.0-0.7); #Lymphocytes 2.1 thou/uL (1.20-3.40); #Monocytes 0.8 thou/uL (0.11-0.59); #Neutrophils 4.6 thou/uL (1.40-6.50); %Basophils 0.6 % (0.0-1.0); %Eosinophils 0.7 % (0.0-10.0); %Lymphocytes 26.9 % (21.0-51.0); %Neutrophils 60.8 % (42.0-75.0); Hemoglobin 6.9 g/dL (12.0-16.0); Mean Corpuscular Hemoglobin 28.8 pg (27.0-31.0); Mean Platelet Volume 6.7 fL (7.4-10.4); Platelet Count 494 thou/uL (130-400); RBC Distribution Width 13.4 % (11.5-14.5); White Blood Cell (WBC) Count 7.6 thou/uL (4.8-10.8)
[2020-03-06 06:34] LABS: Anion Gap 20 mmol/L (10-20); BUN (Urea Nitrogen) 77 mg/dL (9.8-20.1); Calc. Creatinine Clearance 5 mL/min (70-130); Calcium 7.9 mg/dL (7.8-10.44); Carbon Dioxide 28 mmol/L (23-31); Chloride 94 mmol/L (98-107); Estimated GFR-MDRD 3; Glucose 184 mg/dL (83-110); Potassium 3.9 mmol/L (3.5-5.1); Sodium 138 mmol/L (136-145)
[2020-03-06] MEDS ORDERED: Epoetin (ESRD) 20,000 UNITS/ML SC SCH (08:00)
[2020-03-06] MEDS ORDERED: Prevnar 13-Val Conj/PF 0.5 ML SYRINGE IM ONE (09:00)
[2020-03-06] MEDS ORDERED: EPOETIN ALFA-EPBX (ESRD) 4,000 UNIT/ML VIAL SC SCH (09:00)
[2020-03-06] MEDS ORDERED: cefTRIAXone Sodium 2,000 MG in Syringe 0 ML IVPB SCH (11:00)
[2020-03-06] MEDS: Cholecalciferol 1,000 UNITS (25 MCG) TAB PO SCH (11:15)
[2020-03-06] MEDS: Multivit, Therapeutic 1 TAB PO SCH (11:15)
[2020-03-06] MEDS: Amlodipine 5 MG TAB PO SCH (11:15)
[2020-03-06] MEDS: Carvedilol 25 MG TAB PO SCH ×2 (11:16→20:00)
[2020-03-06] MEDS: Pantoprazole 40 MG VIAL IVP SCH ×2 (11:19→20:00)
[2020-03-06] MEDS: Ferrous Sulfate 325 MG TAB PO SCH ×2 (11:19→20:00)
[2020-03-06] MEDS: Megestrol Acetate 40 MG TAB PO SCH (11:19)
[2020-03-06] MEDS: cloNIDine 0.1 MG TAB PO SCH (11:29)
[2020-03-06] MEDS: cefTRIAXone\\ROCEPHIN 2 GM in Sodium Chloride 0.9% 100 ML IVPB SCH (12:56)
[2020-03-06] MEDS ORDERED: cloNIDine 0.1mg/24 Hour PATCH TD SCH ×2 (14:00→20:00)
--- NOTE | 2020-03-06 14:25 | PDOC.HOSPP ---
- Subjective Subjective: Seen and examined. More alert and oriented than yesterday, knows self, knows years, knows she is in the hospital - though she does not remember then name. Does not know situation. Denies pain. Breathing well on room air. Workup ongoing , numerous commodities. Working with palliative care to coordinate a family meeting. - Objective Vital Signs & Weight: Vital Signs (12 hours) Temp Pulse Pulse Resp BP BP Pulse Ox 03/06/20 11:15 75 03/06/20 09:01 78 03/06/20 07:18 98.7 F 75 18 171/73 H 100 03/06/20 07:15 74 16 92 L 03/06/20 06:30 160/60 H 03/06/20 05:52 80 03/06/20 04:00 99.1 F 80 20 192/83 H 92 L 03/06/20 02:51 75 16 93 L Pulse Ox 03/06/20 11:15 03/06/20 09:01 92 L 03/06/20 07:18 03/06/20 07:15 03/06/20 06:30 03/06/20 05:52 03/06/20 04:00 03/06/20 02:51 Weight Admit Weight 160 lb Weight 160 lb I&O: 03/05/20 03/06/20 03/07/20 06:59 06:59 06:59 Intake Total 370 Balance 370 Result Diagrams: 03/06/20 06:00 03/06/20 06:00 Additional Labs: Accuchecks 03/06/20 05:50 POC Glucose 212 H Radiology Reviewed by me: Yes Hospitalist ROS - Review of Systems All other systems reviewed; all pertinent +/- noted in HPI/Subj - Medication Medications: Active Medications Generic Name Dose Route Start Last Admin Trade Name Freq PRN Reason Stop Dose Admin Albuterol Sulfate 0.63 mg 03/05/20 18:30 03/06/20 13:07 Albuterol Sulfate NEB Not Given [id number] [id number] Amlodipine Besylate 5 mg 03/06/20 09:00 03/06/20 11:15 Norvasc PO 5 mg DAILY MIKE Administration Carvedilol 12.5 mg 03/05/20 21:00 03/06/20 11:16 Coreg PO 12.5 mg BID MIKE Administration Cholecalciferol 1,000 units 03/06/20 09:00 03/06/20 11:15 Vitamin D3 PO 1,000 units DAILY MIKE Administration Epoetin Jeff-epbx 7,500 unit 03/05/20 21:00 03/05/20 22:24 Retacrit SC 7,500 unit Q7D MIKE Administration Epoetin Jeff-epbx 7,500 unit 03/06/20 09:00 03/06/20 11:18 Retacrit SC 7,500 unit Q7D MIKE Administration Ferrous Sulfate 325 mg 03/05/20 21:00 03/06/20 11:19 Feosol PO 325 mg BID MIKE Administration Ceftriaxone Sodium 2 gm/ 100 mls @ 5 mls/hr 03/06/20 13:00 03/06/20 12:56 Sodium Chloride IVPB 100 mls 1300 MIKE Administration Insulin Human Lispro 0 units 03/05/20 20:33 03/06/20 05:52 Humalog SC 2 unit .MILD SLIDING SCALE PRN Administration Mild Correctional Scale Isosorbide Mononitrate 60 mg 03/06/20 12:15 03/06/20 13:02 Imdur PO 03/06/20 15:00 Not Given NOW [facility] Labetalol HCl 10 mg 03/05/20 17:53 03/06/20 05:52 Normodyne SLOW IVP 10 mg Q4H PRN Administration SBP Greater Than 180 Levothyroxine Sodium 100 mcg 03/06/20 06:00 03/06/20 05:07 Synthroid PO 100 mcg 0600 MIKE Administration Megestrol Acetate 40 mg 03/06/20 09:00 03/06/20 11:19 Megace PO 40 mg DAILY MIKE Administration Multivitamins 1 tab 03/06/20 09:00 03/06/20 11:15 Theragran PO 1 tab DAILY MIKE Administration Ondansetron HCl 4 mg 03/05/20 16:41 03/06/20 12:56 Zofran IVP 4 mg Q6H PRN Administration Nausea/Vomiting Pantoprazole Sodium 40 mg 03/05/20 21:00 03/06/20 11:19 Protonix IVP 40 mg Q12HR MIKE Administration - Exam General Appearance: NAD, awake alert Eye: PERRL ENT: normocephalic atraumatic, moist mucosa Neck: supple, symmetric, no lymphadenopathy Heart: no murmur, no gallops, no rubs Respiratory: CTAB, no wheezes, no rales, no ronchi, normal chest expansion Gastrointestinal: soft, non-tender, no guarding, no rigidity Extremities: 1+ LE edema Skin: no lesions, no rashes Neurological: cranial nerve grossly intact, no focal deficits Musculoskeletal: generalized weakness Psychiatric: oriented to person, oriented to time, flat affect. negative: oriented to place Hosp A/P (1) Acute on chronic diastolic ACC/AHA stage C congestive heart failure Code(s): I50.33 - ACUTE ON CHRONIC DIASTOLIC (CONGESTIVE) HEART FAILURE Status : Acute (2) Acute respiratory failure with hypoxia Code(s): J96.01 - ACUTE RESPIRATORY FAILURE WITH HYPOXIA Status: Acute (3) Acute worsening of stage 4 chronic kidney disease Code(s): N18.4 - CHRONIC KIDNEY DISEASE, STAGE 4 (SEVERE) Status: Acute (4) Altered mental status Code(s): R41.82 - ALTERED MENTAL STATUS, UNSPECIFIED Status: Acute (5) Hypoxia Code(s): R09.02 - HYPOXEMIA Status: Acute (6) Anemia, normocytic normochromic Code(s): D64.9 - ANEMIA, UNSPECIFIED Status: Chronic (7) Anxiety and depression Code(s): F41.9 - ANXIETY DISORDER, UNSPECIFIED; F32.9 - MAJOR DEPRESSIVE DISORDER, SINGLE EPISODE, UNSPECIFIED Status: Chronic (8) DM2 (diabetes mellitus, type 2) Status: Chronic (9) ESRD (end stage renal disease) on dialysis Code(s): N18.6 - END STAGE RENAL DISEASE; Z99.2 - DEPENDENCE ON RENAL DIALYSIS Status: Chronic (10) GERD (gastroesophageal reflux disease) Code(s): K21.9 - GASTRO-ESOPHAGEAL REFLUX DISEASE WITHOUT ESOPHAGITIS Status: Chronic Qualifiers: (11) HTN (hypertension) Code(s): I10 - ESSENTIAL (PRIMARY) HYPERTENSION Status: Chronic (12) Hyperlipidemia Code(s): E78.5 - HYPERLIPIDEMIA, UNSPECIFIED Status: Chronic Qualifiers: (13) Hypothyroidism Code(s): E03.9 - HYPOTHYROIDISM, UNSPECIFIED Status: Chronic Qualifiers: (14) Moderate tricuspid regurgitation by prior echocardiogram Code(s): I07.1 - RHEUMATIC TRICUSPID INSUFFICIENCY Status: Chronic (15) Obesity (BMI 30.0-34.9) Code(s): E66.9 - OBESITY, UNSPECIFIED Status: Chronic (16) UTI (urinary tract infection) Status: Acute - Plan Plan: medical unit nephrology consultation, recommendations appreciated palliative care consultation recommendations appreciated gastroenterology consultation, recommendations appreciated protonic's IV 40 mg b.i.d. monitor for over G.I. bleeding transfuse packed red blood cells today, Hgb <7.0 peritoneal dialysis per nephrology CT scan had noted with possible amanda lesion, adding MRI and stroke workup MRI brain pending carotid ultrasound is no hemodynamically significant stenosis echocardiogram pending IV ABX for UTI, de escalate to culture and sensivity as able short acting insulin for glucose control blood pressure control next line continue other home medications as able G.I. prophylaxis DVT prophylaxis PT/evaluation treatment disposition: patient is a full code, goals of care to be addressed tomorrow in family meeting with Palliative care.
[2020-03-06] MEDS ORDERED: GoLYTELY 4,000 ml Bottle PO SCH (16:30)
--- NOTE | 2020-03-06 19:47 | PRG ---
DATE OF SERVICE: 03/06/2020 SUBJECTIVE: Ms. Canales is a 74-year-old white female with ESRD-on peritoneal dialysis, type 2 DM, CHF, status post subdural hematoma, status post GI bleed, hypothyroidism, hypertension and readmitted for recurrent GI bleed. The patient was complaining of black tarry stools for the last few days. Hemoglobin was noted to be low on admission. GI consult has already been done. This morning, her hemoglobin was noted at 6.9. For that reason, 1 unit of packed RBC was ordered. We are following up this patient for her maintenance peritoneal dialysis. Due to the low BP, we used only a 1.5% PD solution to minimize ultrafiltration. We removed about 300 mL of fluid overnight with this patient. This morning, she voices no new complaints. She still feels tired. OBJECTIVE: VITAL SIGNS: Blood pressure is 147/70, heart rate 77, respiratory rate 16, temperature 97.8, and O2 saturation 93% on room air. GENERAL: Awake, alert, lethargic, not in overt distress. SKIN: Adequate turgor. HEENT: Pale conjunctivae. Anicteric sclerae. NECK: No neck mass. No carotid bruits. No JVD. CHEST: No deformities. LUNGS: Clear breath sounds. No wheezing. No crackles. HEART: Normal sinus rhythm. No murmur. No gallops. No rubs. ABDOMEN: Globular, soft, and nontender. No masses. Positive for PD catheter. EXTREMITIES: No edema. No deformities. MEDICATIONS: Medications of March 06, 2020, were reviewed. LABORATORY DATA: Laboratories of March 06, 2020; sodium 138, potassium 3.9, chloride 94, carbon dioxide 28, BUN 77, creatinine 12.5, glucose 184, calcium 7.9. White count 11.6, hemoglobin 6.9. Urinalysis shows protein of 200, rbc 21 to 50, wbc greater than 50, 4+ bacteria. ASSESSMENT AND PLAN: 1. Urinary tract infection, on empiric IV antibiotics. Currently, on ceftriaxone. 2. Recurrent gastrointestinal bleed-GI consult has been done, 1 unit packed RBC. We will also restart her Epogen 7500 units subcu q.week as well as iron supplementation. 3. End-stage renal disease, stable. We will continue current CCPD regimen. For the moment due to the decreased p.o. intake and GI bleed, we will use a 1.5% PD solution to minimize ultrafiltration. We will adjust the PD fluid as needed. We will have a fill volume 2.5 L per exchange. Overall, prognosis remains guarded. Recheck basic met and CBC in a.m. Job ID: [id number]
--- NOTE | 2020-03-06 20:03 | RAD ---
EXAM: KUB: 03/06/20 HISTORY: Confirm NG tube placement position. COMPARISON: 02/04/20. FINDINGS: Gastric tube noted in place with the tip extending into the general region of the distal antrum or du odenum. IMPRESSION: Gastric tube in place as above. POS: RRE
--- NOTE | 2020-03-07 00:52 | CON ---
DATE OF CONSULTATION: 03/06/2020 REASON FOR CONSULTATION: Anemia, possible melena. CONSULTING PROVIDER: Jonnie Waldron DO HISTORY OF PRESENT ILLNESS: The patient is a 74-year-old female with past medical history of end-stage renal disease on peritoneal dialysis, diabetes, congestive heart failure, skin cancer, subdural hematoma, hypothyroidism, hypertension, hyperlipidemia, and dementia, who was initially admitted to the hospital for altered mental status. The patient was recently evaluated at her dialysis center and was noted to have a change in her mental status, which prompted routine labs showing a blood sugar in her 30s. At that point, she was transferred to [facility] for further evaluation. While at the hospital, she was noted to have a significant anemia compared to her previous hospitalization. Upon further questioning her , he states that she had been having these darker colored stools for approximately the last 2 to 3 weeks while she was even at the rehab center after her most recent discharge from [facility]. With these dark black stools and the significant anemia, there was a strong concern for continued bleeding and she was ultimately transferred to [facility] for further evaluation. Today, per nursing staff, the patient has not had any events or problems with no further episodes of black stools during this admission (the patient has not had any bowel movements at all). Further interviewing the patient was nonrevealing given the patient's altered mental status and was only alert and oriented x2. She currently states that she just feels sick, but could not pinpoint or elaborate on this particular statement. Of note during her last hospitalization, she did undergo both EGD and colonoscopy. The EGD was performed on January 31, 2020, which showed the presence of a 2-cm hiatal hernia, melanosis of the duodenum and a duodenal diverticulum, but no evidence of bleeding. She subsequently underwent a colonoscopy on February 05, 2020, which showed multiple cecal telangiectasias with blood clot noted, but no evidence of active bleeding. These were ultimately intervened upon with argon plasma coagulation with good hemostasis achieved; however, during the course of the colonoscopy, it was considered a fair to poor prep with the possibility of missing a lesion high. REVIEW OF SYSTEMS: A 10-category review of systems could not be obtained due to the patient's altered mental status. PAST MEDICAL HISTORY: As per HPI. PAST SURGICAL HISTORY: Appendectomy, cholecystectomy, hysterectomy, and tonsillectomy. FAMILY HISTORY: There is no mention of GI malignancies in the chart. SOCIAL HISTORY: No mention of tobacco, alcohol, or illicit drug. OUTPATIENT MEDICATIONS: Reviewed. ALLERGIES: PENICILLIN AND CYCLOBENZAPRINE. PHYSICAL EXAMINATION: VITAL SIGNS: Temperature 97.8, pulse 77, blood pressure 147/70, respiratory rate 16, saturating 93% on room air. GENERAL: The patient was lying in bed, in no acute distress. Only oriented x2. The patient was not alert and very somnolent during the course of the interview. HEENT: Normocephalic, atraumatic. NECK: Supple. No JVD or scleral icterus noted. CARDIOVASCULAR: Regular rate and rhythm with no discernible murmurs, gallops, or rubs. RESPIRATORY: Clear to auscultation bilaterally with no discernible wheezes or rales, but with poor inspiratory effort. ABDOMEN: Normoactive bowel sounds. Soft, nontender, and nondistended. EXTREMITIES: No cyanosis, clubbing, or edema. LABORATORY DATA: CBC with a white blood cell count of 7.6, hemoglobin 6.9, hematocrit 21.6, platelets 494. Chemistry with a sodium of 138, potassium 3.9, chloride 94, CO2 of 28, BUN 77, creatinine 12.5, glucose 184. Urinalysis was consistent with urinary tract infection. IMAGING DATA: EGD was performed on January 31, 2020, which showed a 2 cm hiatal hernia in addition to melanosis of the duodenum as well as a duodenal diverticulum, but no evidence of bleeding. Colonoscopy performed on February 05, 2020, showed multiple cecal telangiectasias with the presence of blood clot, but no evidence of active bleeding at that time. These were subsequently intervened upon with argon plasma coagulation. ASSESSMENT AND PLAN: The patient is a 74-year-old female with past medical history of end-stage renal disease on peritoneal dialysis, diabetes, hypertension, hypothyroidism, hyperlipidemia, diastolic heart failure, recent pneumonia and history of gastrointestinal bleeding with arteriovenous malformations in the cecum. In addition to kgey-xy-tiboywop dementia, presenting with recurrence of black-colored stools and anemia. Dark-colored stool/anemia. The patient was admitted to the hospital in January 2020, with complaints of black stools and weakness with a decreasing H and H noted during that admission. EGD performed during that admission was fairly unrevealing, but a colonoscopy performed showed the presence of multiple telangiectasias within the cecum with the presence of blood clot indicative of recent bleeding. These were ultimately intervened upon with argon plasma coagulation with no further evidence of bleeding or blood clot at the end of the maneuver. With stabilization of her H and H, she was subsequently discharged back to the rehab facility and within the week after being discharged, her noted that she began having these darker black-colored stools. Ultimately, she was discharged to home and during a particular session at her peritoneal dialysis center, she was noted to have significant hypoglycemia. Upon further evaluation at the hospital, she was noted again to have anemia concerning for continued bleeding. At this time per her , she has been having darker black-colored stools that have been intermittently present over the last 1 to 2 weeks and when coupled with her decreasing H and H when compared to her discharge, blood counts during the last hospitalization, it is concerning for the presence of gastrointestinal bleeding. At this time given her recent EGD that was fairly negative, but bleeding source seen during the colonoscopy, this seems to be the most likely source of her anemia at this time. RECOMMENDATIONS: 1. We would continue to trend her H and H and transfuse as necessary to maintain an H and H of 07/21. 2. Continue to monitor clinically for signs of active GI bleeding. 3. Continue to avoid any anticoagulation in this patient in light of possible active GI bleeding. 4. We would place the patient on a clear liquid diet today with GoLYTELY prep tonight and n.p.o. at midnight in anticipation of colonoscopy tomorrow. 5. We will plan for colonoscopy tomorrow with further recommendations to follow procedure. We will continue to follow. Please call with any questions. Job ID: [id number]
[2020-03-07] MEDS: Albuterol Sulfate 1.25 MG/3 ML NEB NEB SCH ×6 (03:21→23:57)
[2020-03-07] MEDS: Levothyroxine Sodium 100 MCG TAB PO SCH (05:42)
[2020-03-07] MEDS: Carvedilol 25 MG TAB PO SCH ×2 (05:42→22:00)
[2020-03-07 06:23] LABS: #Basophils 0.1 thou/uL (0.0-0.2); #Lymphocytes 1.8 thou/uL (1.20-3.40); #Monocytes 0.8 thou/uL (0.11-0.59); #Neutrophils 4.9 thou/uL (1.40-6.50); %Basophils 0.7 % (0.0-1.0); %Eosinophils 0.6 % (0.0-10.0); %Lymphocytes 23.8 % (21.0-51.0); %Monocytes 10.9 % (0.0-10.0); %Neutrophils 64.1 % (42.0-75.0); Hemoglobin 8.9 g/dL (12.0-16.0); Mean Corpuscular HGB CONC 32.2 g/dL (32.0-36.0); Mean Corpuscular Hemoglobin 28.8 pg (27.0-31.0); Mean Corpuscular Volume 89.5 fL (78.0-98.0); Mean Platelet Volume 6.5 fL (7.4-10.4); Platelet Count 481 thou/uL (130-400); RBC Distribution Width 13.8 % (11.5-14.5); Red Blood Cell (RBC) Count 3.08 mill/uL (4.20-5.40); White Blood Cell (WBC) Count 7.6 thou/uL (4.8-10.8)
[2020-03-07 06:41] LABS: Anion Gap 21 mmol/L (10-20); BUN (Urea Nitrogen) 66 mg/dL (9.8-20.1); Calc. Creatinine Clearance 5 mL/min (70-130); Carbon Dioxide 28 mmol/L (23-31); Chloride 96 mmol/L (98-107); Estimated GFR-MDRD 3; Glucose 197 mg/dL (83-110); Potassium 3.6 mmol/L (3.5-5.1); Sodium 141 mmol/L (136-145)
--- NOTE | 2020-03-07 09:07 | MRI ---
MRI BRAIN WITHOUT CONTRAST: HISTORY: Altered mental status COMPARISON: 07/07/2018 CORRELATION: CT scan from 03/06/2020. FINDINGS: No restricted diffusion is seen. There are multiple foci of T2 prolongation in the periventricular wh ite matter, consistent with chronic small vessel ischemic disease. There is gliosis in the frontal lobes. The ventricular size is appropriate and the basilar cisterns are patent. No evidence of acute infarct, hemorrhage, midline shift or abnormal extra-axial fluid collections is seen. IMPRESSION: No evidence of acute intracranial process.
[2020-03-07] MEDS: Ferrous Sulfate 325 MG TAB PO SCH ×2 (09:14→22:00)
[2020-03-07] MEDS: Pantoprazole 40 MG VIAL IVP SCH (09:14)
[2020-03-07] MEDS: Amlodipine 5 MG TAB PO SCH (09:14)
[2020-03-07] MEDS: Multivit, Therapeutic 1 TAB PO SCH (09:20)
[2020-03-07] MEDS: Megestrol Acetate 40 MG TAB PO SCH (09:20)
[2020-03-07] MEDS: Cholecalciferol 1,000 UNITS (25 MCG) TAB PO SCH (09:20)
--- NOTE | 2020-03-07 09:55 | PRG ---
DATE OF SERVICE: 03/07/2020 SUBJECTIVE: Ms. Canales is a 74-year-old white female with ESRD-on peritoneal dialysis and was admitted for recurrent GI bleed. She has been seen by GI and scheduled for an upper lower GI endoscopy. She tolerated peritoneal dialysis last night. We were able to remove 300+ mL of fluid with peritoneal dialysis. No new complaints today. No chest pain or shortness of breath. OBJECTIVE: VITAL SIGNS: Blood pressure 167/70, heart rate 76, respiratory rate 20, temperature 98.3, O2 saturation 96%. GENERAL: Awake, alert, comfortable, not in overt distress. SKIN: Adequate turgor. HEENT: Slightly pale conjunctivae. Anicteric sclerae. NECK: No neck mass. No carotid bruits. No JVD. CHEST: No deformities. LUNGS: Clear breath sounds. No wheezing. No crackles. HEART: Normal sinus rhythm. No murmur. No gallops. No rubs. ABDOMEN: Globular, soft, nontender. No masses. Positive for PD catheter. EXTREMITIES: No edema. No deformities. MEDICATIONS: Medications of March 07, 2020, was reviewed. LABORATORY DATA: Laboratories of March 07, 2020; white count 7.6, hemoglobin 8.9. Sodium 141, potassium 3.6, chloride 96, carbon dioxide 28, BUN 66, creatinine 12.08, calcium 8.0. ASSESSMENT AND PLAN: 1. End-stage renal disease, stable. We will continue current CCPD regimen. Continue 1.5% PD solution using a 2.5 L fill volume. So far, she is tolerating said treatment. 2. Anemia-received 1 unit of packed RBC. Continuing weekly Epogen for this patient. 3. Recurrent GI bleed. The patient followed by GI and she is scheduled for an upper and lower GI endoscopy. Job ID: [id number]
[2020-03-07] MEDS ORDERED: PROPOFOL 200 MG/20 ML VIAL ONE (10:32)
[2020-03-07] MEDS ORDERED: PHENYLEPHRINE-NS 100 MCG/ML 10 ML SYRINGE ONE (10:32)
[2020-03-07] MEDS ORDERED: Lidocaine 1% PF 5 ML VIAL ONE (10:32)
--- NOTE | 2020-03-07 11:55 | PDOC.FMACP ---
Advance Care Planning - Problem (1) Palliative care encounter Status: Acute Code(s): Z51.5 - ENCOUNTER FOR PALLIATIVE CARE (2) Acute on chronic diastolic ACC/AHA stage C congestive heart failure Status: Acute Code(s): I50.33 - ACUTE ON CHRONIC DIASTOLIC (CONGESTIVE) HEART FAILURE (3) Altered mental status Status: Acute Code(s): R41.82 - ALTERED MENTAL STATUS, UNSPECIFIED (4) DM2 (diabetes mellitus, type 2) Status: Chronic (5) ESRD (end stage renal disease) on dialysis Status: Chronic Code(s): N18.6 - END STAGE RENAL DISEASE; Z99.2 - DEPENDENCE ON RENAL DIALYSIS (6) Obesity (BMI 30.0-34.9) Status: Chronic Code(s): E66.9 - OBESITY, UNSPECIFIED - Note Participants: family, palliative care Summary: Palliative Care revisited Advanced Care Planning with patient Kailash Canales as well as her two sons Jake and Gerber, they were allowed an opportunity to decline. The multiple diagnosis, prognosis and goals of care were discussed. Mr Canales reported that in their otero they have documented that neither desire extreme measures. Appropriate forms and documentation to accomplish the goals of care were discussed. All questions were answered. and sons have agreed to transition to DNAR and complete the OOHDNAR. Discussed what the patient wishes would be. 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 They are interested in transition to Home with hospice and continue dialysis, concern is burden of care in the home setting. Hesitance in transition to rehab is limited visitation related to Covid. Time Spent (mins): 90
[2020-03-07] MEDS: cefTRIAXone\\ROCEPHIN 2 GM in Sodium Chloride 0.9% 100 ML IVPB SCH (12:56)
[2020-03-07 14:30] LABS: SARS-CoV-2 MS2 Positive; SARS-CoV-2 N Gene Negative; SARS-CoV-2 S Gene Negative; SARS-CoV-2 orf1ab Negative
[2020-03-07] MEDS ORDERED: Promethazine HCl 25 MG/ML VIAL SLOW IVP PRN (16:28)
[2020-03-07] MEDS ORDERED: Promethazine HCl 25 MG/ML VIAL IM PRN (16:28)
[2020-03-07] MEDS ORDERED: Ondansetron HCl/PF 4 MG/2 ML Vial IVP PRN (16:28)
--- NOTE | 2020-03-07 17:18 | OP ---
DATE OF PROCEDURE: 03/07/2020 PROCEDURE PERFORMED: Colonoscopy with argon plasma coagulation. PREPROCEDURE DIAGNOSES: 1. [id number] anemia. 2. Evidence of gastrointestinal bleeding with melenic stool. 3. History of right colon vascular ectasias with previous argon plasma coagulation treatment. POSTPROCEDURE DIAGNOSES: 1. Two small nonbleeding arteriovenous malformations in the proximal ascending colon. 2. Diffuse petechiae in the right colon without any active bleeding. PROCEDURE IN DETAIL: Written consents were obtained prior to procedure. After adequate sedation, rectal exam was performed and it was normal. The endoscope was advanced to the cecum with some difficulty as the sigmoid colon was somewhat tortuous. Numerous diverticula were noted in the sigmoid colon. The endoscope was advanced to the cecum. The quality of bowel prep was good. Two small nonbleeding vascular ectasia were noted in the proximal ascending colon near the ileocecal valve. These were ablated with argon gas with ascending colon setting. Diffuse petechiae were noted in the cecum and ascending colon without any signs of active bleeding. The hepatic flexure appeared normal. Transverse colon, splenic flexure, and descending colon appeared normal. Scattered diverticula were noted in the sigmoid colon. The rectal vault appeared normal including retroflexion. The patient tolerated the procedure well. ASSESSMENT: 1. Two small nonbleeding vascular ectasia in the ascending colon, status post argon gas coagulation. 2. Diffuse petechiae in cecum and ascending colon without active bleeding. 3. Sigmoid diverticulosis coli. RECOMMENDATIONS: 1. Resume diet. 2. Avoid any form of anticoagulation. 3. Continue to monitor and trend blood count. Job ID: [id number]
--- NOTE | 2020-03-07 18:44 | PDOC.HOSPP ---
- Subjective Subjective: Seen and examined. Cognitively she is about the same. Patient tearful and emotional, though dosent understand situation. She knows she is in the hospital and she knows her name. Had a family meeting with the patient's and two sons. The palliative care nurse practitioner and team were also involved. Greater than 35 minutes spent in family meeting. Time was given for questions, all answered in detail. All medical information was discussed. Family are interested in hospice. Code status addressed: Do not resuscitate and do not intubate was discussed and they state that she has a living will and would not want to be kept alive on life support artificially by machines. We will honor Patients and families wishes. - Objective Vital Signs & Weight: Vital Signs (12 hours) Temp Pulse Resp BP BP Pulse Ox 03/07/20 17:05 98.2 F 82 20 158/62 H 96 03/07/20 11:46 83 16 03/07/20 11:00 98.2 F 83 20 138/76 92 L 03/07/20 09:14 76 167/70 H 03/07/20 09:00 96 03/07/20 07:55 98.3 F 76 20 167/70 H 96 Weight Admit Weight 160 lb Weight 160 lb I&O: 03/06/20 03/07/20 03/08/20 06:59 06:59 06:59 Intake Total 370 4370 Balance 370 4370 Result Diagrams: 03/07/20 05:58 03/07/20 05:58 Radiology Reviewed by me: Yes Hospitalist ROS - Review of Systems All other systems reviewed; all pertinent +/- noted in HPI/Subj - Medication Medications: Active Medications Generic Name Dose Route Start Last Admin Trade Name Freq PRN Reason Stop Dose Admin Acetaminophen 650 mg 03/05/20 16:41 03/06/20 20:01 Tylenol PO 650 mg Q4H PRN Administration Headache/Fever/Mild Pain (1-3) Albuterol Sulfate 0.63 mg 03/05/20 18:30 03/07/20 15:56 Albuterol Sulfate NEB Not Given [id number] MIKE Amlodipine Besylate 5 mg 03/06/20 09:00 03/07/20 09:14 Norvasc PO 5 mg DAILY MIKE Administration Carvedilol 12.5 mg 03/05/20 21:00 03/07/20 05:42 Coreg PO 12.5 mg BID [facility] Administration Cholecalciferol 1,000 units 03/06/20 09:00 03/07/20 09:20 Vitamin D3 PO Not Given DAILY [facility] Clonidine 0.1 mg 03/06/20 20:00 03/06/20 21:08 Iewurrww-Kzf-5 Patch TD 0.1 mg Q7D@2000 MIKE Administration Epoetin Jeff-epbx 7,500 unit 03/05/20 21:00 03/05/20 22:24 Retacrit SC 7,500 unit Q7D MIKE Administration Epoetin Jeff-epbx 7,500 unit 03/06/20 09:00 03/06/20 11:18 Retacrit SC 7,500 unit Q7D [facility] Administration Ferrous Sulfate 325 mg 03/05/20 21:00 03/07/20 09:14 Feosol PO Not Given BID [facility] Ceftriaxone Sodium 2 gm/ 100 mls @ 5 mls/hr 03/06/20 13:00 03/07/20 12:56 Sodium Chloride IVPB 100 mls 1300 [facility] Administration Insulin Human Lispro 0 units 03/05/20 20:33 03/06/20 05:52 Humalog SC 2 unit .MILD SLIDING SCALE PRN Administration Mild Correctional Scale Isosorbide Mononitrate 60 mg 03/07/20 09:00 03/07/20 09:13 Imdur PO 60 mg DAILY [facility] Administration Labetalol HCl 10 mg 03/05/20 17:53 03/06/20 05:52 Normodyne SLOW IVP 10 mg Q4H PRN Administration SBP Greater Than 180 Levothyroxine Sodium 100 mcg 03/06/20 06:00 03/07/20 05:42 Synthroid PO Not Given 0600 [facility] Megestrol Acetate 40 mg 03/06/20 09:00 03/07/20 09:20 Megace PO Not Given DAILY [facility] Multivitamins 1 tab 03/06/20 09:00 03/07/20 09:20 Theragran PO Not Given DAILY [facility] Ondansetron HCl 4 mg 03/05/20 16:41 03/06/20 12:56 Zofran IVP 4 mg Q6H PRN Administration Nausea/Vomiting - Exam General Appearance: NAD, awake alert Eye: anicteric sclera ENT: normocephalic atraumatic, moist mucosa Neck: supple, symmetric, no lymphadenopathy Heart: no murmur, no gallops, no rubs Respiratory: CTAB, no wheezes, no rales, no ronchi, normal chest expansion Gastrointestinal: soft, non-tender, no guarding, no rigidity Extremities: no edema Skin: no lesions, no rashes Neurological: cranial nerve grossly intact, no focal deficits Musculoskeletal: generalized weakness Psychiatric: oriented to person, oriented to place Hosp A/P (1) Acute on chronic diastolic ACC/AHA stage C congestive heart failure Code(s): I50.33 - ACUTE ON CHRONIC DIASTOLIC (CONGESTIVE) HEART FAILURE Status : Acute (2) Acute respiratory failure with hypoxia Code(s): J96.01 - ACUTE RESPIRATORY FAILURE WITH HYPOXIA Status: Acute (3) Acute worsening of stage 4 chronic kidney disease Code(s): N18.4 - CHRONIC KIDNEY DISEASE, STAGE 4 (SEVERE) Status: Acute (4) Altered mental status Code(s): R41.82 - ALTERED MENTAL STATUS, UNSPECIFIED Status: Acute (5) Hypoxia Code(s): R09.02 - HYPOXEMIA Status: Acute (6) Anemia, normocytic normochromic Code(s): D64.9 - ANEMIA, UNSPECIFIED Status: Chronic (7) Anxiety and depression Code(s): F41.9 - ANXIETY DISORDER, UNSPECIFIED; F32.9 - MAJOR DEPRESSIVE DISORDER, SINGLE EPISODE, UNSPECIFIED Status: Chronic (8) DM2 (diabetes mellitus, type 2) Status: Chronic (9) ESRD (end stage renal disease) on dialysis Code(s): N18.6 - END STAGE RENAL DISEASE; Z99.2 - DEPENDENCE ON RENAL DIALYSIS Status: Chronic (10) GERD (gastroesophageal reflux disease) Code(s): K21.9 - GASTRO-ESOPHAGEAL REFLUX DISEASE WITHOUT ESOPHAGITIS Status: Chronic Qualifiers: (11) HTN (hypertension) Code(s): I10 - ESSENTIAL (PRIMARY) HYPERTENSION Status: Chronic (12) Hyperlipidemia Code(s): E78.5 - HYPERLIPIDEMIA, UNSPECIFIED Status: Chronic Qualifiers: (13) Hypothyroidism Code(s): E03.9 - HYPOTHYROIDISM, UNSPECIFIED Status: Chronic Qualifiers: (14) Moderate tricuspid regurgitation by prior echocardiogram Code(s): I07.1 - RHEUMATIC TRICUSPID INSUFFICIENCY Status: Chronic (15) Obesity (BMI 30.0-34.9) Code(s): E66.9 - OBESITY, UNSPECIFIED Status: Chronic (16) UTI (urinary tract infection) Status: Acute - Plan Plan: medical unit nephrology consultation, recommendations appreciated palliative care consultation recommendations appreciated gastroenterology consultation, recommendations appreciated S/p endoscopy - see full report for details protonic's IV 40 mg b.i.d. monitor for over G.I. bleeding transfuse packed red blood cells today, Hgb <7.0 peritoneal dialysis per nephrology CT scan head with artifact MRI brain no acute pathology Carotid ultrasound is no hemodynamically significant stenosis echocardiogram preserved EF IV ABX for UTI, de escalate to culture and sensivity as able short acting insulin for glucose control blood pressure control next line continue other home medications as able G.I. prophylaxis DVT prophylaxis PT/evaluation treatment Disposition: Good family meeting with Palliative care today, family state that they have living will in place - she would never want to be kept alive artificially on machines - they have signed DNR/DNI paperwork.
[2020-03-07] MEDS: HumaLOG 300 UNITS/3 ML VIAL SC PRN (22:00)
[2020-03-08] MEDS: Albuterol Sulfate 1.25 MG/3 ML NEB NEB SCH ×6 (03:24→22:32)
[2020-03-08] MEDS: Levothyroxine Sodium 100 MCG TAB PO SCH (05:51)
[2020-03-08] MEDS: Amlodipine 5 MG TAB PO SCH (08:18)
[2020-03-08] MEDS: Cholecalciferol 1,000 UNITS (25 MCG) TAB PO SCH (08:18)
[2020-03-08] MEDS: Megestrol Acetate 40 MG TAB PO SCH (08:18)
[2020-03-08] MEDS: Carvedilol 25 MG TAB PO SCH ×2 (08:19→20:00)
[2020-03-08] MEDS: Multivit, Therapeutic 1 TAB PO SCH (08:19)
[2020-03-08] MEDS: Ferrous Sulfate 325 MG TAB PO SCH ×2 (08:19→20:00)
[2020-03-08 08:30] LABS: #Basophils 0.1 thou/uL (0.0-0.2); #Eosinphils 0.1 thou/uL (0.0-0.7); #Monocytes 1.1 thou/uL (0.11-0.59); #Neutrophils 5.9 thou/uL (1.40-6.50); %Basophils 0.7 % (0.0-1.0); %Eosinophils 0.8 % (0.0-10.0); %Lymphocytes 21.8 % (21.0-51.0); %Monocytes 12.4 % (0.0-10.0); %Neutrophils 64.2 % (42.0-75.0); Hemoglobin 9.3 g/dL (12.0-16.0); Mean Corpuscular HGB CONC 32.4 g/dL (32.0-36.0); Mean Corpuscular Volume 89.4 fL (78.0-98.0); Mean Platelet Volume 6.5 fL (7.4-10.4); Platelet Count 517 thou/uL (130-400); RBC Distribution Width 13.7 % (11.5-14.5); Red Blood Cell (RBC) Count 3.22 mill/uL (4.20-5.40); White Blood Cell (WBC) Count 9.2 thou/uL (4.8-10.8)
--- NOTE | 2020-03-08 09:38 | PRG ---
DATE OF SERVICE: 03/08/2020 SUBJECTIVE: Ms. Canales is a 74-year-old white female with ESRD - on peritoneal dialysis and was admitted for GI bleed. She underwent a colonoscopy. This patient had 2 small nonbleeding AV malformations on the proximal ascending colon and diffuse petechiae in the right colon without any active bleeding. She was said to have undergone argon plasma coagulation. This morning, she voices no new complaints, except the patient is somewhat teary-eyed on examination. Denies any chest pain or shortness of breath. OBJECTIVE: VITAL SIGNS: Blood pressure 176/68, heart rate 81, respiratory rate 18, temperature 98.1, and O2 saturation is 93%. GENERAL: The patient is awake, alert, comfortable, not in overt distress. SKIN: Adequate turgor. HEENT: She has pinkish conjunctivae. Anicteric sclerae. NECK: No neck mass. No carotid bruits. No JVD. CHEST: No deformities. LUNGS: Clear breath sounds. No wheezing. No crackles. HEART: Normal sinus rhythm. No murmurs, gallops, or rubs. ABDOMEN: Globular, soft, nontender. No masses. Positive for PD catheter. EXTREMITIES: No edema. No deformities. MEDICATIONS: Medications of March 08, 2020, were reviewed. LABORATORY DATA: Laboratories of March 08, 2020, were reviewed. Her hemoglobin was noted at 9.3 with hematocrit 28.8. ASSESSMENT AND PLAN: 1. End-stage renal disease, stable. We will continue current CCPD regimen. We removed about more than 300 mL of ultrafiltration with the peritoneal dialysis yesterday. Clinical exam does not suggest that the patient is in volume overload. 2. Depression. Start Zoloft at 100 mg tablet daily. 3. Anemia - chronic in nature. Currently, the patient is on weekly Epogen at 7500 units subcu q.week. 4. Status post gastrointestinal bleed - status post colonoscopy with finding of arteriovenous malformation. Argon laser therapy was done. CBC was noted to be stable. We will recheck CBC and basic metabolic profile in a.m. Job ID: [id number]
[2020-03-08] MEDS: cefTRIAXone\\ROCEPHIN 2 GM in Sodium Chloride 0.9% 100 ML IVPB SCH (12:15)
--- NOTE | 2020-03-08 13:26 | PDOC.HOSPP ---
- Subjective Subjective: No new complaints. Patient doing about the same. Patient tells staff and palliative care team with "I'm ready to go to [facility]". We have DNR/ DNI and out of hospital arrest paperwork filled out. They are looking into home hospice. - Objective Vital Signs & Weight: Vital Signs (12 hours) Temp Pulse Resp BP Pulse Ox 03/08/20 13:02 98.3 F 79 18 168/71 H 93 L 03/08/20 10:50 80 16 97 03/08/20 08:35 93 L 03/08/20 08:27 98.1 F 81 18 176/68 H 93 L 03/08/20 07:07 93 L 03/08/20 07:05 103 H 20 93 L 03/08/20 05:28 96 03/08/20 04:40 98.1 F 82 17 182/72 H 96 03/08/20 03:24 94 L Weight Admit Weight 160 lb Weight 160 lb I&O: 03/07/20 03/08/20 03/09/20 06:59 06:59 06:59 Intake Total 4370 Balance 4370 Result Diagrams: 03/08/20 08:15 03/07/20 05:58 Radiology Reviewed by me: Yes Hospitalist ROS - Review of Systems All other systems reviewed; all pertinent +/- noted in HPI/Subj - Medication Medications: Active Medications Generic Name Dose Route Start Last Admin Trade Name Freq PRN Reason Stop Dose Admin Acetaminophen 650 mg 03/05/20 16:41 03/06/20 20:01 Tylenol PO 650 mg Q4H PRN Administration Headache/Fever/Mild Pain (1-3) Albuterol Sulfate 0.63 mg 03/05/20 18:30 03/08/20 10:50 Albuterol Sulfate NEB 0.63 mg [id number] MIKE Administration Amlodipine Besylate 5 mg 03/06/20 09:00 03/08/20 08:18 Norvasc PO 5 mg DAILY [facility] Administration Carvedilol 12.5 mg 03/05/20 21:00 03/08/20 08:19 Coreg PO 12.5 mg BID [facility] Administration Cholecalciferol 1,000 units 03/06/20 09:00 03/08/20 08:18 Vitamin D3 PO 1,000 units DAILY [facility] Administration Clonidine 0.1 mg 03/06/20 20:00 03/06/20 21:08 Ifdlajuh-Emz-7 Patch TD 0.1 mg Q7D@1999 [facility] Administration Epoetin Jeff-epbx 7,500 unit 03/05/20 21:00 03/05/20 22:24 Retacrit SC 7,500 unit Q7D [facility] Administration Ferrous Sulfate 325 mg 03/05/20 21:00 03/08/20 08:19 Feosol PO 325 mg BID [facility] Administration Ceftriaxone Sodium 2 gm/ 100 mls @ 5 mls/hr 03/06/20 13:00 03/08/20 12:15 Sodium Chloride IVPB 100 mls 1300 [facility] Administration Insulin Human Lispro 0 units 03/05/20 20:33 03/06/20 05:52 Humalog SC 2 unit .MILD SLIDING SCALE PRN Administration Mild Correctional Scale Insulin Human Lispro 0 units 03/05/20 20:33 03/07/20 22:00 Humalog SC 2 units .BEDTIME SLIDING SC PRN Administration Bedtime Correctional Scale Isosorbide Mononitrate 60 mg 03/07/20 09:00 03/08/20 08:18 Imdur PO 60 mg DAILY [facility] Administration Labetalol HCl 10 mg 03/05/20 17:53 03/06/20 05:52 Normodyne SLOW IVP 10 mg Q4H PRN Administration SBP Greater Than 180 Levothyroxine Sodium 100 mcg 03/06/20 06:00 03/08/20 05:51 Synthroid PO 100 mcg 0600 [facility] Administration Megestrol Acetate 40 mg 03/06/20 09:00 03/08/20 08:18 Megace PO 40 mg DAILY [facility] Administration Multivitamins 1 tab 03/06/20 09:00 03/08/20 08:19 Theragran PO 1 tab DAILY [facility] Administration Ondansetron HCl 4 mg 03/05/20 16:41 03/06/20 12:56 Zofran IVP 4 mg Q6H PRN Administration Nausea/Vomiting Pantoprazole Sodium 40 mg 03/08/20 09:00 03/08/20 08:18 Protonix PO 40 mg DAILY [facility] Administration Sertraline HCl 100 mg 03/08/20 09:00 03/08/20 10:47 Zoloft PO Not Given DAILY [facility] - Exam General Appearance: NAD, awake alert Eye: PERRL ENT: normocephalic atraumatic, moist mucosa Neck: supple, symmetric, no lymphadenopathy Heart: no murmur, no gallops, no rubs Respiratory: CTAB, no wheezes, no rales, no ronchi, normal chest expansion Gastrointestinal: soft, non-tender, no guarding, no rigidity Extremities: 1+ LE edema Skin: no lesions, no rashes Neurological: cranial nerve grossly intact, no focal deficits Psychiatric: oriented to person. negative: oriented to time Psychiatric - other findings: knows she is in the hospital. Crying at times without warning or cause. Hosp A/P (1) Acute on chronic diastolic ACC/AHA stage C congestive heart failure Code(s): I50.33 - ACUTE ON CHRONIC DIASTOLIC (CONGESTIVE) HEART FAILURE Status : Acute (2) Acute respiratory failure with hypoxia Code(s): J96.01 - ACUTE RESPIRATORY FAILURE WITH HYPOXIA Status: Acute (3) Acute worsening of stage 4 chronic kidney disease Code(s): N18.4 - CHRONIC KIDNEY DISEASE, STAGE 4 (SEVERE) Status: Acute (4) Altered mental status Code(s): R41.82 - ALTERED MENTAL STATUS, UNSPECIFIED Status: Acute (5) Hypoxia Code(s): R09.02 - HYPOXEMIA Status: Acute (6) Anemia, normocytic normochromic Code(s): D64.9 - ANEMIA, UNSPECIFIED Status: Chronic (7) Anxiety and depression Code(s): F41.9 - ANXIETY DISORDER, UNSPECIFIED; F32.9 - MAJOR DEPRESSIVE DISORDER, SINGLE EPISODE, UNSPECIFIED Status: Chronic (8) DM2 (diabetes mellitus, type 2) Status: Chronic (9) ESRD (end stage renal disease) on dialysis Code(s): N18.6 - END STAGE RENAL DISEASE; Z99.2 - DEPENDENCE ON RENAL DIALYSIS Status: Chronic (10) GERD (gastroesophageal reflux disease) Code(s): K21.9 - GASTRO-ESOPHAGEAL REFLUX DISEASE WITHOUT ESOPHAGITIS Status: Chronic Qualifiers: (11) HTN (hypertension) Code(s): I10 - ESSENTIAL (PRIMARY) HYPERTENSION Status: Chronic (12) Hyperlipidemia Code(s): E78.5 - HYPERLIPIDEMIA, UNSPECIFIED Status: Chronic Qualifiers: (13) Hypothyroidism Code(s): E03.9 - HYPOTHYROIDISM, UNSPECIFIED Status: Chronic Qualifiers: (14) Moderate tricuspid regurgitation by prior echocardiogram Code(s): I07.1 - RHEUMATIC TRICUSPID INSUFFICIENCY Status: Chronic (15) Obesity (BMI 30.0-34.9) Code(s): E66.9 - OBESITY, UNSPECIFIED Status: Chronic (16) UTI (urinary tract infection) Status: Acute - Plan Plan: medical unit Hospice consultation, recommendations appreciated palliative care consultation recommendations appreciated nephrology consultation, recommendations appreciated gastroenterology consultation, recommendations appreciated S/p endoscopy - see full report for details PPI therapy monitor for over G.I. bleeding transfuse packed red blood cells today, Hgb <7.0 peritoneal dialysis per nephrology CT scan head with artifact MRI brain no acute pathology Carotid ultrasound is no hemodynamically significant stenosis echocardiogram preserved EF IV ABX for UTI, de escalate to culture and sensitivity as able Yeast in urine, added Fluconazole short acting insulin for glucose control blood pressure control next line continue other home medications as able G.I. prophylaxis DVT prophylaxis PT/evaluation treatment Disposition: Good family meeting with Palliative care on 03/07/2020, family state that they have living will in place - she would never want to be kept alive artificially on machines - they have signed DNR/DNI paperwork and Out of hospital arrest paperwork.
[2020-03-08] MEDS ORDERED: Fluconazole 100 MG TAB PO SCH (13:45)
[2020-03-09] MEDS: Albuterol Sulfate 1.25 MG/3 ML NEB NEB SCH ×2 (02:20→10:17)
[2020-03-09 04:19] VITALS: TEMP 97.9
[2020-03-09] MEDS: Levothyroxine Sodium 100 MCG TAB PO SCH (05:26)
[2020-03-09] MEDS: Labetalol HCl 100 MG/20 ML VIAL SLOW IVP PRN ×2 (05:26→08:28)
[2020-03-09 05:47] LABS: #Basophils 0.1 thou/uL (0.0-0.2); #Eosinphils 0.1 thou/uL (0.0-0.7); #Monocytes 1.1 thou/uL (0.11-0.59); #Neutrophils 6.7 thou/uL (1.40-6.50); %Basophils 0.7 % (0.0-1.0); %Eosinophils 0.6 % (0.0-10.0); %Lymphocytes 19.8 % (21.0-51.0); %Monocytes 11.3 % (0.0-10.0); %Neutrophils 67.6 % (42.0-75.0); Hemoglobin 10.3 g/dL (12.0-16.0); Mean Corpuscular HGB CONC 31.1 g/dL (32.0-36.0); Mean Corpuscular Hemoglobin 28.1 pg (27.0-31.0); Mean Corpuscular Volume 90.1 fL (78.0-98.0); Mean Platelet Volume 6.7 fL (7.4-10.4); Platelet Count 605 thou/uL (130-400); RBC Distribution Width 13.9 % (11.5-14.5); Red Blood Cell (RBC) Count 3.66 mill/uL (4.20-5.40); White Blood Cell (WBC) Count 9.9 thou/uL (4.8-10.8)
[2020-03-09 06:09] LABS: Anion Gap 22 mmol/L (10-20); BUN (Urea Nitrogen) 54 mg/dL (9.8-20.1); Calc. Creatinine Clearance 5 mL/min (70-130); Calcium 8.4 mg/dL (7.8-10.44); Carbon Dioxide 25 mmol/L (23-31); Estimated GFR-MDRD 3; Glucose 210 mg/dL (83-110); Potassium 3.2 mmol/L (3.5-5.1); Sodium 140 mmol/L (136-145)
[2020-03-09 06:18] LABS: Chloride 96 mmol/L (98-107)
[2020-03-09] MEDS: Cholecalciferol 1,000 UNITS (25 MCG) TAB PO SCH (08:24)
[2020-03-09] MEDS: Ferrous Sulfate 325 MG TAB PO SCH (08:24)
[2020-03-09] MEDS: Amlodipine 5 MG TAB PO SCH (08:25)
[2020-03-09] MEDS: Multivit, Therapeutic 1 TAB PO SCH (08:26)
[2020-03-09] MEDS: Megestrol Acetate 40 MG TAB PO SCH (08:27)
[2020-03-09] MEDS: Carvedilol 25 MG TAB PO SCH (08:27)
[2020-03-09] MEDS ORDERED: Fluconazole 100 MG TAB PO SCH (09:00)
--- NOTE | 2020-03-09 09:38 | PRG ---
DATE OF SERVICE: 03/08/2020 SUBJECTIVE: Ms. Canales has had no bleeding. She is tearful. Nurse notes that she is this way most of the time. She states she is sick. She denies pain. OBJECTIVE: VITAL SIGNS: Temperature 98, pulse 90, blood pressure . ABDOMEN: Soft, nontender. There is no rebound. There is no guarding. LABORATORY DATA: White count 9.2, hemoglobin 9.3, platelet count 517. BUN and creatinine are 77 and 12. ASSESSMENT: 1. Chronic anemia. 2. History of arteriovenous malformations of the gastrointestinal tract with colonoscopy this admission showing a few small arteriovenous malformations, nonbleeding, cauterized. There are also multiple small petechiae that are not able to be intervened on and these were not. 3. Upper endoscopy was not repeated. One has been performed within the last month on 02/05/2020 at this facility with colonoscopy and an esophagogastroduodenoscopy on 01/31/2020 with no lesions seen at the esophagogastroduodenoscopy. 4. Likely her anemia is multifactorial with chronic renal failure, anemia of chronic disease, and probably small arteriovenous malformations. RECOMMENDATIONS: At this time, we will sign off. The patient will need to be on iron and magnesium supplementation and if I can be of further assistance in the patient's care and hospitalization, please do not hesitate to contact me. Job ID: [id number]
[2020-03-09 10:19] VITALS: BP 167/73
--- NOTE | 2020-03-09 18:31 | PRG ---
DATE OF SERVICE: 03/09/2020 SUBJECTIVE: Ms. Canales is a 74-year-old white female with ESRD. She was admitted for recurrent GI bleed. She underwent an upper GI endoscopy with coagulation with argon laser therapy for the vascular ectasia. This morning, she is feeling better. The plan is for her to be discharged. She voices no new complaints. She denies any chest pain or shortness of breath. OBJECTIVE: VITAL SIGNS: Blood pressure 186/75, heart rate 84, respiratory rate 18, temperature 97.9, O2 saturation 94%. GENERAL: The patient is awake, alert, comfortable, not in distress. SKIN: Adequate turgor. HEENT: She has pinkish conjunctivae. Anicteric sclerae. No neck mass. No carotid bruits. No JVD. CHEST: No deformities. LUNGS: Clear breath sounds. No wheezing. No crackles. HEART: Normal sinus rhythm. No murmur. No gallops. No rubs. ABDOMEN: Globular, soft, nontender. No masses. Positive for PEG. Positive for PD catheter. EXTREMITIES: No edema. No deformities. MEDICATIONS: Medications of March 09, 2020, were reviewed. LABORATORY DATA: Laboratories of March 09, 2020; white count 9.9, hemoglobin 10.3. Sodium 140, potassium 3.2, chloride 96, carbon dioxide 25, BUN 54, creatinine 12.1, glucose 210, calcium 8.4. ASSESSMENT AND PLAN: 1. End-stage renal disease, stable. We will continue current CCPD regimen. We will adjust PD regimen once the patient is discharged. 2. Status post lower GI bleed - much improved. Hemoglobin is stable. Continue weekly Epogen. 3. The patient has gone for hospice care at home. However, they have decided to continue with the peritoneal dialysis. I have instructed my PD nurse to make the adjustments with their current PD regimen. Job ID: [id number]
--- NOTE | 2020-03-09 23:41 | DIS ---
DATE OF ADMISSION: 03/05/2020 DATE OF DISCHARGE: 03/09/2020 REASON FOR HOSPITALIZATION: Altered mental status, hypoglycemia, and GI bleeding. PROCEDURES PERFORMED AND TREATMENTS RENDERED: Ms. Canales is a 74-year-old female who presented to [facility] on 03/05/2020, please see full history and physical for details. This 74-year-old female has extensive past medical history including end-stage renal disease, on peritoneal dialysis; diabetes mellitus; congestive heart failure; skin cancer; subdural hematoma; hypothyroidism, hypertension, hyperlipidemia; and she has been diagnosed with dementia in the past. The patient having numerous acute issues on admission including altered mental status, worse than her baseline, hypoglycemia with blood sugar in the 30s, and acute GI bleeding with black stools. The patient was admitted to the medical unit for close management. Gastroenterology was consulted, please see full consultation notes and progress notes for details. The patient was placed on Protonix intravenously for GI protection. Gastroenterology recommended an endoscopy. This was performed on 03/05/2020, please see full operative reports for details from Dr. Candelaria. The patient tolerated this procedure well without intraoperative complications. The patient was identified to have two small nonbleeding arteriovenous malformations in the proximal ascending colon. The patient was also found to have diffuse petechiae in the right colon without any active bleeding. Please see full operative report for full details. This patient was chronically ill, and her quality of life has been deteriorating over the past several months per her and son. I coordinated a family meeting which was done on 03/07/2020, please see full notes from the palliative care nurse practitioner, Katrin Albright, and myself for details. After extensive time was spent with the family explaining all of the chronic medical issues, acute medical issues, all laboratory data and imaging studies, the patient and her family state that she would never want to be kept alive artificially on machines, and she does have a living will to this affect. The patient clearly expressing that she is ready to go to [facility] when she was more cognizant after several days of admission. The patient's family agreeing that her quality of life has been poor, and despite maximum medical efforts and surgical efforts including multiple hospitalizations, trips to acute rehab, home health care, she has continued to deteriorate and decline. Thus, the patient's family elected for do not resuscitate and do not intubate status, we honored their wishes, and [id number] arrest forms were filled out at their request. The patient's family requesting that she be taken home where she is most comfortable. This was facilitated through hospice. The patient was accepted into a hospice company of the family selection, and she was recommended safe for transfer immediately to home hospice on 03/09/2020. All future medical issues are to be managed by the hospice team. CONDITION ON DISCHARGE: Guarded. SPECIFIC INSTRUCTIONS FOR THE PATIENT/FAMILY: 1. The patient was recommended safe for discharge to hospice. 2. Hospice physician and team are to coordinate all future medical care. 3. The patient was recommended to take all medications as directed by hospice physician. 4. I recommended to them explicitly that insulin be stopped as this has been demonstrated in her to cause hypoglycemia with blood sugar in the 30s on admission and this medication is likely to cause more harm than good, and I explicitly informed them that they should stop insulin, and that this medication can cause hypoglycemia including altered mental status, coma, and even . 5. The patient was recommended to coordinate peritoneal dialysis through [facility] as this was a contingent decision with hospice. 6. The patient was recommended to have comfort care and goals of care to be continually adjusted in the home setting through hospice. TIME SPENT: Greater than 35 minutes spent coordinating care and discharge process for this patient. DISCHARGE MEDICATIONS: Please see full discharge medication list for details. Job ID: [id number]
== END 2020-03-09 11:04 | disposition hospice, home (50) | DRG 377 ==
LOC: OBSVTOIN 15:56 → T4-A 15:56
PROVIDERS: ADMIT Internal Medicine; ATTEND Internal Medicine
PROC: 30233N1 Transfusion of Nonautologous Red Blood Cells into Peripheral Vein, Percutaneous Approach (ICD-10-PCS; 2020-03-06)
PROC: 0W3P8ZZ Control Bleeding in Gastrointestinal Tract, Via Natural or Artificial Opening Endoscopic (ICD-10-PCS; principal; 2020-03-07)
PROC: 3E1M39Z Irrigation of Peritoneal Cavity using Dialysate, Percutaneous Approach (ICD-10-PCS; 2020-03-07)
DX: K55.21 Angiodysplasia of colon with hemorrhage (principal); N18.6 End stage renal disease; I50.33 Acute on chronic diastolic (congestive) heart failure; J96.01 Acute respiratory failure with hypoxia; I13.2 Hypertensive heart and chronic kidney disease with heart failure and with stage 5 chronic kidney disease, or end stage renal disease; Z51.5 Encounter for palliative care; Z66 Do not resuscitate; N39.0 Urinary tract infection, site not specified; E11.22 Type 2 diabetes mellitus with diabetic chronic kidney disease; E03.9 Hypothyroidism, unspecified; E78.5 Hyperlipidemia, unspecified; F03.90 Unspecified dementia, unspecified severity, without behavioral disturbance, psychotic disturbance, mood disturbance, and anxiety; F41.9 Anxiety disorder, unspecified; F32.9 Major depressive disorder, single episode, unspecified; K21.9 Gastro-esophageal reflux disease without esophagitis; I07.1 Rheumatic tricuspid insufficiency; R23.3 Spontaneous ecchymoses; E66.9 Obesity, unspecified; D63.1 Anemia in chronic kidney disease; E11.649 Type 2 diabetes mellitus with hypoglycemia without coma; K57.30 Diverticulosis of large intestine without perforation or abscess without bleeding; Z99.2 Dependence on renal dialysis; Z85.828 Personal history of other malignant neoplasm of skin; Z90.49 Acquired absence of other specified parts of digestive tract; Z90.710 Acquired absence of both cervix and uterus; Z90.89 Acquired absence of other organs; Z88.0 Allergy status to penicillin; Z88.8 Allergy status to other drugs, medicaments and biological substances; Z86.001 Personal history of in-situ neoplasm of cervix uteri; Z68.28 Body mass index [BMI] 28.0-28.9, adult
CPT/HCPCS: 36415; 36416; 36430; 70450; 70551; 71045; 74018; 80048; 81001; 85025; 86850; 86900; 86901; 86922; 87086; 87635; 90945; 93306; 93880; 94640; 97139; C9113; G0257; J0696; J2405; J2704; J3490; P9016; Q5105; S0179; U0003